=== PATIENT | male | born 1935 | race Caucasian/White ===

== ENCOUNTER 2020-01-31 11:19 | Emergency (ER) | payer OTHER ==
--- NOTE | 2020-01-31 12:28 | RAD REPORT ---
EXAM DESCRIPTION: CT - CTHCSPWOC - 01/31/2020 12:19 pm CLINICAL HISTORY: Trauma, head and neck injury. PAIN COMPARISON: No comparisons TECHNIQUE: Axial 5 mm thick images of the head were obtained. Axial 2 mm thick images of the cervical spine were obtained with sagittal and coronal reconstruction images generated and reviewed. All CT scans are performed using dose optimization technique as appropriate and may include automated exposure control or mA/KV adjustment according to patient size. FINDINGS: CT HEAD WITHOUT CONTRAST: Acute subarachnoid hemorrhage is present of a mild to moderate quantity along both convexities, sy[place] an fissure, [place] region and basal cisterns. A small amount of blood is also present in th e fourth ventricle. No significant hydrocephalus or midline shift. The paranasal sinuses and mastoids are clear.The calvarium is intact. CT CERVICAL SPINE WITHOUT CONTRAST: No fracture or subluxation.Mild multilevel cervical degenerative changes are present.No prevertebral soft tissues swelling is identified. IMPRESSION: Acute bilateral subarachnoid hemorrhage is present.No midline shift or hydrocephalus. Mild degenerate change involving the cervical spine. No acute cervical spine abnormality. Dr. Valdez in the ER was notified.
[2020-01-31] MEDS ORDERED: FOSPHENYTOIN PE 1,000 MG in NA CHLORIDE 0.9% 100 ML IV ONE (12:30)
[2020-01-31 12:46] LABS: Absolute Lymphocytes (CBC) 0.9 K/uL (0.7-4.9); Basophils % 0.2 % (0-1.3); Hematocrit 49.1 % (39.6-49.0); RBC Red Blood Cell Count 5.31 M/uL (4.33-5.43)
[2020-01-31 12:49] LABS: Protime INR 1.15
--- NOTE | 2020-01-31 12:50 | ER ---
Nurse's Notes [facility] Name: James Baker Age: 84 yrs Sex: Male : 1935 Arrival Date: 01/31/2020 Time: 11:23 Bed 13 Private MD: Morales Hartley V Diagnosis: Subarachnoid hemorrhage - bilateral Presentation: 01/30 11:34 Chief complaint: Patient states: Thursday night started with MARCANO and N/V. Pain is now into ll1 neck area mostly. No fever. states he was "out of it"yesterday, but seems better today. Coronavirus screen: Client denies travel out of the [place] in the last 14 days. fatigue, headache, muscle pain, Client presents with at least one sign or symptom that may indicate coronavirus-19. Standard/surgical mask placed on the client. Ebola Screen: Patient denies travel to an Ebola-affected area in the 21 days before illness onset. Initial Sepsis Screen: Does the patient meet any 2 criteria? No. Patient's initial sepsis screen is negative. Does the patient have a suspected source of infection? Yes: S/S of meningitis or endocarditis. Risk Assessment: Do you want to hurt yourself or someone else? Patient reports no desire to harm self or others. Onset of symptoms was January 29, 2020. 11:34 Method Of Arrival: Ambulatory ll1 11:34 Acuity: RODRI 3 ll1 Historical: - Allergies: 11:39 Krclspa-Voo-Adx Reductase Inhibitors; ll1 - PMHx: 11:39 High Cholesterol; Hypertension; ll1 - PSHx: 11:39 Knee surgery; Appendectomy; ll1 - Immunization history:: Flu vaccine is up to date. - Social history:: Smoking status: Patient denies any tobacco usage or history of. Screenin:15 Abuse screen: Denies threats or abuse. Denies injuries from another. Nutritional ss screening: No deficits noted. Tuberculosis screening: Never had TB. 12:30 Fall Risk No fall in past 12 months (0 pts). Secondary diagnosis (15 points) possible ss CVA. IV access (20 points). Ambulatory Aid- None/Bed Rest/Nurse Assist (0 pts). Gait- Normal/Bed Rest/Wheelchair (0 pts) Mental Status- Overestimates/Forgets Limitations (15 pts.). Assessment: 12:15 Reassessment: Pt in CT at this time. mechanical facilities technician told to bring patient to exam room 13 when ss finished obtaining images. General: reports that Thursday patient began having a headache, dizziness and N/V. Yesterday had some confusion and today c/o neck pain that is worse with range of motion with mild nausea . Pain: Complains of pain in head, back of neck Pain currently is 4 out of 10 on a pain scale. Neuro: Level of Consciousness is awake, alert, obeys commands, Oriented to person, place, time, Has intermittent episodes of confusion. Cardiovascular: Capillary refill < 3 seconds is brisk in bilateral fingers Patient's skin is warm and dry. Respiratory: Airway is patent Respiratory effort is even, unlabored, Respiratory pattern is regular, symmetrical. GI: Bowel sounds present X 4 quads. Abd is soft and non tender X 4 quads. Reports nausea. : No signs and/or symptoms were reported regarding the genitourinary system. EENT: Oral mucosa is moist. Derm: Skin is intact, is healthy with good turgor, Skin is dry, Skin is pink, warm \\T\\ dry. normal. Musculoskeletal: Circulation, motion, and sensation intact. Range of motion: intact in all extremities, Swelling absent. 13:04 Reassessment: report given to EMY Dimas. Vital Signs: 11:34 BP 141 / 75; Pulse 60; Resp 17; Temp 98.3; Pulse Ox 96% ; Height 5 ft. 11 in. (180.34 ll1 cm); Pain 8/10; 13:04 BP 139 / 71; Pulse 65; Resp 15; Pulse Ox 99% on R/A; Pain 4/10; ss ED Course: 11:23 Patient arrived in ED. mr 11:24 Morales Hartley MD is Private Physician. mr 11:37 Triage completed. ll1 11:39 Arm band placed on Patient placed in an exam room, on a stretcher. ll1 12:19 CT Head C Spine In Process Unspecified. EDMS 12:30 Initial lab(s) drawn, by me, sent to lab. Inserted saline lock: 20 gauge in right jp3 antecubital area, using aseptic technique. Blood collected. Patient maintains SpO2 saturation greater than 95% on room air. 12:30 EKG done, by ED staff, reviewed by Ivan Valdez MD. jp3 12:33 Ivan Valdez MD is Attending Physician. kdr 12:36 Call light in reach. Side rails up X 1. Side rails up X2. Warm blanket given. Verbal jp3 reassurance given. secured entrance monitor on. Pulse ox on. NIBP on. 12:46 Fabiola Lazar, RN is Primary Nurse. ss 12:48 XRAY Chest (1 view) In Process Unspecified. EDMS 13:04 No provider procedures requiring assistance completed. Patient transferred, IV remains ss in place. Administered Medications: 12:47 Drug: Fosphenytoin 1 grams Route: IVPB; Site: right antecubital; ss 13:13 Follow up: IV Status: Completed infusion ss Outcome: 12:49 ER care complete, transfer ordered by . kdr 13:04 Transferred by helicopter ss 13:04 Condition: stable 13:04 Instructed on the need for transfer. 13:30 Patient left the ED. Signatures: Dispatcher [employer] EDMS Ivan Valdez MD MD kdr Kaylie Mcfarlane, REGRINDER OPERATOR-C REGRINDER OPERATOR-Glo Jackson mr Fabiola Lazar, RN RN Gordo Rivera jp3 Jonah Mendez, RN RN ll1
--- NOTE | 2020-01-31 12:50 | EDPHYS ---
Physician Documentation [facility] Name: James Baker Age: 84 yrs Sex: Male : 1935 Arrival Date: 01/31/2020 Time: 11:23 Bed 13 Private MD: Morales Hartley V ED Physician Ivan Valdez HPI: 01/30 12:39 This 84 yrs old Male presents to ER via Ambulatory with complaints of snw Abdominal Pain, Vomiting, Neck Problem. 12:39 The patient presents with abdominal pain that is diffuse. Onset: The symptoms/episode snw began/occurred suddenly, 2 day(s) ago. The symptoms do not radiate. Associated signs and symptoms: Pertinent positives: nausea and vomiting, headache. The symptoms are described as sudden onset of nausea and vomiting. Modifying factors: the symptoms are aggravated by headache and neck pain. Severity of pain: At its worst the pain was very mild. The patient has not experienced similar symptoms in the past. It is unknown whether or not the patient has recently seen a physician. complains of headache and posterior neck pain. Historical: - Allergies: 11:39 Axtkifb-Tgy-Fmm Reductase Inhibitors; ll1 - PMHx: 11:39 High Cholesterol; Hypertension; ll1 - PSHx: 11:39 Knee surgery; Appendectomy; ll1 - Immunization history:: Flu vaccine is up to date. - Social history:: Smoking status: Patient denies any tobacco usage or history of. ROS: 12:37 Eyes: Negative for injury, pain, redness, and discharge, ENT: Negative for injury, snw pain, and discharge, Neck: Negative for injury, pain, and swelling, Cardiovascular: Negative for chest pain, palpitations, and edema, Respiratory: Negative for shortness of breath, cough, wheezing, and pleuritic chest pain. 12:37 Back: Negative for injury and pain, : Negative for injury, bleeding, discharge, and swelling, MS/Extremity: Negative for injury and deformity, Skin: Negative for injury, rash, and discoloration. 12:37 Constitutional: Positive for malaise. 12:37 Abdomen/GI: Positive for nausea and vomiting. 12:37 Neuro: Positive for headache, posterior neck discomfort, Pt's Spouse states he seemed "out of it" yesterday. Complains of increasing posterior neck pain today. Exam: 12:45 Constitutional: This is a well developed, well nourished patient who is awake, alert, kdr and in no acute distress. Head/Face: Normocephalic, atraumatic. Eyes: Pupils equal round and reactive to light, extra-ocular motions intact. Lids and lashes normal. Conjunctiva and sclera are non-icteric and not injected. Cornea within normal limits. Periorbital areas with no swelling, redness, or edema. ENT: Nares patent. No nasal discharge, no septal abnormalities noted. Tympanic membranes are normal and external auditory canals are clear. Oropharynx with no redness, swelling, or masses, exudates, or evidence of obstruction, uvula midline. Mucous membranes moist. Chest/axilla: Normal chest wall appearance and motion. Nontender with no deformity. No lesions are appreciated. Cardiovascular: Regular rate and rhythm with a normal S1 and S2. No gallops, murmurs, or rubs. Normal PMI, no JVD. No pulse deficits. Respiratory: Lungs have equal breath sounds bilaterally, clear to auscultation and percussion. No rales, rhonchi or wheezes noted. No increased work of breathing, no retractions or nasal flaring. Abdomen/GI: Soft, non-tender, with normal bowel sounds. No distension or tympany. No guarding or rebound. No evidence of tenderness throughout. Back: No spinal tenderness. No costovertebral tenderness. Full range of motion. Skin: Warm, dry with normal turgor. Normal color with no rashes, no lesions, and no evidence of cellulitis. MS/ Extremity: Pulses equal, no cyanosis. Neurovascular intact. Full, normal range of motion. Neuro: Awake and alert, GCS 15, oriented to person, place, time, and situation. Cranial nerves II-XII grossly intact. Motor strength 5/5 in all extremities. Sensory grossly intact. Cerebellar exam normal. Normal gait. Psych: Awake, alert, with orientation to person, place and time. Behavior, mood, and affect are within normal limits. 12:45 Neck: External neck: is normal, C-spine: appears grossly normal, ROM/movement: pain, that is mild, with flexion. 19:35 ECG was reviewed by the Attending Physician. kdr Vital Signs: 11:34 BP 141 / 75; Pulse 60; Resp 17; Temp 98.3; Pulse Ox 96% ; Height 5 ft. 11 in. (180.34 ll1 cm); Pain 8/10; 13:04 BP 139 / 71; Pulse 65; Resp 15; Pulse Ox 99% on R/A; Pain 4/10; ss MDM: 12:37 Data reviewed: vital signs, nurses notes. Data interpreted: Pulse oximetry: on room air snw is 96 %. Interpretation: normal. Counseling: I had a detailed discussion with the patient and/or guardian regarding: the historical points, exam findings, and any diagnostic results supporting the discharge/admit diagnosis, lab results, radiology results, the need to transfer to another facility, for higher level of care, [facility] does not immediately have the required specialist. 12:41 Physician consultation: Dr Coats was called at 12:25, was contacted at 12:42, regarding snw regarding transfer, to [facility]. patient's condition. 12:49 Patient medically screened. kdr 01/30 12:21 Order name: Basic Metabolic Panel snw 01/30 12:21 Order name: CBC with Diff snw 01/30 12:21 Order name: LFT's snw 01/30 12:21 Order name: Magnesium snw 01/30 12:21 Order name: NT PRO-BNP snw 01/30 12:21 Order name: PT-INR snw 01/30 11:53 Order name: CT Head C Spine; Complete Time: 12:41 snw 01/30 11:53 Order name: FSBS; Complete Time: 12:36 snw 01/30 12:21 Order name: Troponin (emerg Dept Use Only) snw 01/30 12:21 Order name: XRAY Chest (1 view) snw 01/30 12:21 Order name: EKG; Complete Time: 12:22 snw 01/30 12:21 Order name: Cardiac monitoring; Complete Time: 12:36 snw 01/30 12:46 Order name: Glucose, Ancillary Testing EDMS 01/30 12:21 Order name: EKG - Nurse/Tech; Complete Time: 12:36 snw 01/30 12:21 Order name: IV Saline Lock; Complete Time: 12:36 snw 01/30 12:21 Order name: Labs collected and sent; Complete Time: 12:36 snw 01/30 12:21 Order name: O2 Per Protocol; Complete Time: 12:36 snw 01/30 12:21 Order name: O2 Sat Monitoring; Complete Time: 12:36 snw 01/30 12:22 Order name: Transfer - Initiate; Complete Time: 12:46 snw EC:35 Rate is 58 beats/min. Rhythm is regular, Sinus bradycardia with No ectopy. QRS [place] is kdr Normal. MO interval is normal. QRS interval is normal. QT interval is normal. Clinical impression: NSR w/ Non-specific ST/T Changes and Sinus bradycardia. Administered Medications: 12:47 Drug: Fosphenytoin 1 grams Route: IVPB; Site: right antecubital; ss 13:13 Follow up: IV Status: Completed infusion ss Disposition: 12:45 Co-signature as Attending Physician, Ivan Valdez MD. Co-signature as Attending [facility] Physician, Ivan Valdez MD I agree with the assessment and plan of care. Disposition: 01/31/20 12:49 Transfer ordered to [facility]. Diagnosis is Subarachnoid hemorrhage - bilateral. - Reason for transfer: Higher level of care. - Accepting physician is Dr. Coats. - Condition is Fair. - Problem is new. - Symptoms have improved. Signatures: Dispatcher [employer] EDMS Ivan Valdez MD MD kdr Kaylie Mcfarlane, DAVID-C PETAL SHAPER HAND-Ariasw Fabiola Lazar RN RN ss Jonah Mendez RN RN ll1 Corrections: (The following items were deleted from the chart) 13:30 12:49 01/31/2020 12:49 Transfer ordered to [facility]. ss Diagnosis is Subarachnoid hemorrhage - bilateral. Reason for transfer: Higher level of care. Accepting physician is Dr. Coats. Condition is Fair. Problem is new. Symptoms have improved. kdr
--- NOTE | 2020-01-31 13:01 | RAD REPORT ---
EXAM DESCRIPTION: Noe Single View01/31/2020 12:47 pm CLINICAL HISTORY: Intracranial bleed COMPARISON: 2017 FINDINGS: The lungs appear clear of acute infiltrate. The heart is normal size IMPRESSION: No acute abnormalities displayed
[2020-01-31 13:09] LABS: ALT/SGPT 21 U/L (12-78); AST/SGOT 15 U/L (15-37); Albumin 4.2 g/dL (3.4-5.0); Alkaline Phosphatase 52 U/L (45-117); BUN Blood Urea Nitrogen 19 mg/dL (7-18); Bicarbonate 31 mmol/L (21-32); Bilirubin Direct 0.4 mg/dL (0-0.2); Bilirubin Total 2.4 mg/dL (0.2-1.0); Glucose Level 124 mg/dL (74-106); Magnesium 2.3 mg/dL (1.8-2.4); NT PRO-BNP 717 pg/mL (<450); Protein, Total 7.8 g/dL (6.4-8.2); Sodium Level 137 mmol/L (136-145); Troponin (Emerg Dept Use Only) < 0.02 ng/mL (0.0-0.045)
[2020-01-31 14:42] VITALS: TEMP 98.3
[2020-01-31 14:43] VITALS: BP 139/71; O2SAT 99
--- NOTE | 2020-02-01 11:30 | EKG ---
Test Date: 2020-01-31 Test Time: 12:29:25 Process Control Tech: ELLIOT MEASUREMENT RESULTS: Intervals: Rate: 58 AK: 128 QRSD: 76 QT: 420 QTc: 412 [place]: P: 58 AK: 128 QRS: -14 T: 50 INTERPRETIVE STATEMENTS: Sinus bradycardia Possible Left atrial enlargement Low voltage QRS Borderline ECG Compared to ECG 02/04/2018 12:26:10 Low QRS voltage now present Electronically Signed On 02-01-20 11:27:19 CDT by David Qiu
== END 2020-01-31 13:30 | disposition short-term general hospital (02) ==
LOC: ER 11:19
DX: I60.9 Nontraumatic subarachnoid hemorrhage, unspecified (principal); I10 Essential (primary) hypertension; M54.2 Cervicalgia; R11.2 Nausea with vomiting, unspecified; Z88.8 Allergy status to other drugs, medicaments and biological substances
CPT/HCPCS: 93005; 85025; 80048; 36415; 83735; 85610; 82947; 80076; 84484; 83880; 70450; 72125; 71045; Q2009; 96365; 99285

== ENCOUNTER 2020-04-08 14:04 | Emergency (ER) | payer OTHER ==
--- OUTSIDE RECORDS SUMMARY | 2020-04-08 14:10 | XMS REPORT | Clinical Summary ---
:1935 Author Organization [facility] Address [address] [place] [address] Care Team Providers Name Role Phone Unavailable Primary Care Provider Unavailable Allergies Active Allergy Reactions Severity Noted Date Comments Uplxofa-Bsj-Noq Reductase 01/31/2020 We ight loss, depression Inhibitors Medications Medication Sig Dispensed Refills Start End Date Status Date apixaban Take 2 tablets 150 tablet 0 05/04/19 Acti ve (ELIQUIS) 5 mg (10 mg total) by 0 21 Tab tablet mouth 2 (two) times daily for 5 days, THEN 1 tablet (5 mg total) 2 (two) times daily for 65 days. baclofen Take 1 tablet (5 0 Act moris (LIORESAL) 5 mg mg total) by 0 Tab mouth 3 (three) times daily. ipratropium-albut Take 3 mLs by 0 03/09/20 Active Thony (DUO-NEB) nebulization 0 21 0.5 mg-3 mg(2.5 every 6 (six) mg base)/3 mL hours for 360 nebulizer days. solution modafiniL Take 1 tablet 0 04/14/19 Active (PROVIGIL) 200 MG (200 mg total) 0 21 tablet by mouth 2 (two) times daily for 30 days. Max Daily Amount: 400 mg sodium chloride, Take 2 mLs by 0 Active hypertonic, nebulization 0 (HYPER-LUIGI) 7 % every 12 nebulizer (twelve) hours. solution ramipriL (ALTACE) Take 10 mg by 0 02/24/20 Discontinued 10 MG mouth daily. 20 (Stop T aking at capsuleIndication Di scharge) s: hypertension doxazosin Take 1 tablet (1 90 tablet 0 03/14/20 Dis continued (CARDURA) 1 MG mg total) by 0 20 (S top Taking at tablet mouth nightly. Disch arge) modafiniL Take 1 tablet 60 tablet 0 03/14/20 Discon tinued (PROVIGIL) 100 MG (100 mg total) 0 20 (Stop Taking at tablet by mouth 2 (two) Dis charge) times daily. Max Daily Amount: 200 mg QUEtiapine Take 1 tablet 60 tablet 0 02/24/20 Disco ntinued (SEROquel) 25 MG (25 mg total) by 0 20 tablet mouth nightly. QUEtiapine Take 0.5 tablets 60 tablet 0 03/14/20 Di scontinued (SEROquel) 25 MG (12.5 mg total) 0 20 (Stop Taking at tablet by mouth Discharge) nightly. Active Problems Problem Noted Date SAH (subarachnoid hemorrhage) 02/27/2020 Urinary retention 02/24/2020 PEG (percutaneous endoscopic gastrostomy) status 02/23 Acute deep vein thrombosis (DVT) of brachial vein of r ight upper extremity 02/24/2020 Moderate protein-calorie malnutrition 02/24/2020 Respiratory failure 02/13/2020 Encephalopathy 02/01/2020 Subarachnoid hemorrhage 01/31/2020 Resolved Problems Problem Noted Date Resolved Date Pneumothorax 02/13/2020 02/24/2020 Cerebral edema 02/01/2020 02/09/2020 HTN (hypertension) 02/01/2020 02/24/2020 Sepsis, due to unspecified organism, unspecified whether 02/24/2020 acute organ dysfunction present Hypotension, unspecified hypotension type 02/24/2020 Septic shock 02/24/2020 Encounters Date Type Specialty Care Team Description 02/20/2020 Surgery Gastroenterology Yelena Hunter MD ENDOSCOPY,PEG 02/20/2020 Anesthesia Event Gastroenterology Andrea Varela MD 02/07/2020 Anesthesia Event Saeed Grey MD 02/07/2020 Surgery Virtual, Surgeon PROCEDURE D ONE OUTSIDE OR 02/01/2020 Anesthesia Event Wil Otoole MD 02/01/2020 Surgery Virtual, Surgeon PROCEDURE D ONE OUTSIDE OR 01/31/2020 [facility] Internal Venkatasubba Coats, SAH (s ubarachnoid hemorrhage) ([facility]) (Primary Dx); - [facility] 03/14/2020 Jb Munguia Cerebral edema ([facility]); Roman, Encephalopathy; Carl Venegas MD Essential hypertension; Jared Boyle, Nontraumati c subarachnoid hemorrhage ([facility]); Meningitis; Radha Siddiqui Aspirelizabeth ramos pneumonia, unspecified aspiration pneumonia type, unspecified laterality, unspecified part of lung ([facility]); Sepsis, due to unspecified organism, uns pecified whether acute organ dysfunction present ([facility]); Thang Bess MD Primary spontaneous pneumothorax; Sunshine Pineda Septic shoc k ([facility]); MD Jayla Spontaneous ten saji pneumothorax; Acute respirato ry failure with hypoxia ([facility]); Secondary spont aneous pneumothorax; Dysphagia, unsp ecified type; Leukocytosis, u nspecified type; Other pneumotho rax; S/P percutaneou s endoscopic gastrostomy (PEG) tube placement ([facility]); PEG (percutaneo us endoscopic gastrostomy) status ([facility]); Urinary retenti on; Hematuria, unsp ecified type; Sepsis associat ed hypotension ([facility]); Acute deep vein thrombosis (DVT) of brachial vein of right upper extremity ([facility]); Palliative care by specialist; Goals of care, counseling/discussion; Moderate protei n-calorie malnutrition ([facility]) 01/31/2020 Travel after 04/08/2019 Social History Tobacco Use Types Packs/Day Years Used Date Never Smoker Smokeless Tobacco: Never Used Tobacco Cessation: Counseling Given: No Alcohol Use Drinks/Week oz/Week Comments Never Alcohol Habits Answer Date Recorded How often do you have a drink containing alcohol? Never 01/31/2020 How many drinks containing alcohol do you have on a typical Not asked day when you are drinking? How often do you have six or more drinks on one occasion? No t asked Sex Assigned at Date Recorded Not on file Last Filed Vital Signs Vital Sign Reading Time Taken Comments Blood Pressure 120/69 03/14/2020 4:00 PM [employer] Pulse 78 03/14/2020 4:00 PM [employer] Temperature 37.2 C (98.9 F) 03/14/2020 4:00 PM [employer] Respiratory Rate 18 03/14/2020 4:00 PM [employer] Oxygen Saturation 93% 03/14/2020 4:00 PM [employer] Inhaled Oxygen Concentration 28% 03/11/2020 2:40 AM [employer] Weight 66.7 kg (147 lb) 03/09/2020 8:48 AM [employer] Height 180.3 cm (5' 10.98") 02/27/2020 12:00 PM [employer] Body Mass Index 20.51 02/27/2020 12:00 PM [employer] Plan of Treatment Health Maintenance Due Date Last Done Comments PNEUMOCOCCAL 65+ YRS (1 of 1 - [id number]) 2001 DEPRESSION SCREENING (12+) 04/13/2019 Medicare IPPE (WELCOME TO MEDICARE) 04/13/2019 INFLUENZA VACCINE (#1) 2019 Procedures Procedure Name Priority Date/Time Associated Comments Diagnosis POCT-GLUCOSE METER Routine 03/14/2020 12:10 Resul ts for PM [employer] this procedure are in the results section. POCT-GLUCOSE METER Routine 03/14/2020 5:30 Resul ts for AM [employer] this procedure are in the results section. POCT-GLUCOSE METER Routine 03/13/2020 11:37 Resul ts for PM [employer] this procedure are in the results section. POCT-GLUCOSE METER Routine 03/13/2020 6:22 Resul ts for PM [employer] this procedure are in the results section. POCT-GLUCOSE METER Routine 03/13/2020 12:11 Resul ts for PM [employer] this procedure are in the results section. SARS-COV2/RT-PCR Routine 03/13/2020 10:17 Results for ([facility]) AM [employer] this proce dure are in the results section. POCT-GLUCOSE METER Routine 03/13/2020 5:48 Resul ts for AM [employer] this procedure are in the results section. POCT-GLUCOSE METER Routine 03/12/2020 11:25 Resul ts for PM [employer] this procedure are in the results section. POCT-GLUCOSE METER Routine 03/12/2020 12:35 Resul ts for PM [employer] this procedure are in the results section. POCT-GLUCOSE METER Routine 03/12/2020 6:06 Resul ts for AM [employer] this procedure are in the results section. CBC W/PLT COUNT & Routine 03/12/2020 4:09 Result s for AUTO DIFFERENTIAL AM [employer] this proce dure are in the results section. CBC W/PLT COUNT & Routine 03/12/2020 4:09 Result s for AUTO DIFFERENTIAL AM [employer] this proce dure are in the results section. POCT-GLUCOSE METER Routine 03/11/2020 11:30 Resul ts for PM [employer] this procedure are in the results section. POCT-GLUCOSE METER Routine 03/11/2020 5:12 Resul ts for PM [employer] this procedure are in the results section. POCT-GLUCOSE METER Routine 03/11/2020 12:47 Resul ts for PM [employer] this procedure are in the results section. POCT-GLUCOSE METER Routine 03/11/2020 5:34 Resul ts for AM [employer] this procedure are in the results section. CBC W/PLT COUNT & Routine 03/11/2020 4:40 Result s for AUTO DIFFERENTIAL AM [employer] this proce dure are in the results section. CBC W/PLT COUNT & Routine 03/11/2020 4:40 Result s for AUTO DIFFERENTIAL AM [employer] this proce dure are in the results section. POCT-GLUCOSE METER Routine 03/10/2020 11:37 Resul ts for PM [employer] this procedure are in the results section. POCT-GLUCOSE METER Routine 03/10/2020 4:55 Resul ts for PM [employer] this procedure are in the results section. POCT-GLUCOSE METER Routine 03/10/2020 12:41 Resul ts for PM [employer] this procedure are in the results section. CBC W/PLT COUNT & Routine 03/10/2020 6:58 Result s for AUTO DIFFERENTIAL AM [employer] this proce dure are in the results section. BASIC METABOLIC Routine 03/10/2020 6:58 Results for PANEL (7) AM [employer] this procedure are in the results section. CBC W/PLT COUNT & Routine 03/10/2020 6:58 Result s for AUTO DIFFERENTIAL AM [employer] this proce dure are in the results section. POCT-GLUCOSE METER Routine 03/10/2020 6:08 Resul ts for AM [employer] this procedure are in the results section. POCT-GLUCOSE METER Routine 03/09/2020 11:54 Resul ts for PM [employer] this procedure are in the results section. POCT-GLUCOSE METER Routine 03/09/2020 5:24 Resul ts for PM [employer] this procedure are in the results section. POCT-GLUCOSE METER Routine 03/09/2020 11:31 Resul ts for AM [employer] this procedure are in the results section. BLOOD CULTURE Routine 03/09/2020 10:59 Results fo r AM [employer] this procedure are in the results section. BLOOD CULTURE Routine 03/09/2020 10:59 Results fo r AM [employer] this procedure are in the results section. XR CHEST 1 VIEW BLAYNE 03/09/2020 10:38 Results for PORTABLE/BEDSIDE AM [employer] this proced ure are in the results section. URINALYSIS W/ REFLEX Routine 03/09/2020 9:52 Res ults for URINE CULTURE AM [employer] this procedure are in the results section. POCT-GLUCOSE METER Routine 03/09/2020 5:51 Resul ts for AM [employer] this procedure are in the results section. CBC W/PLT COUNT & Routine 03/09/2020 3:45 Result s for AUTO DIFFERENTIAL AM [employer] this proce dure are in the results section. BASIC METABOLIC Routine 03/09/2020 3:45 Results for PANEL (7) AM [employer] this procedure are in the results section. CBC W/PLT COUNT & Routine 03/09/2020 3:45 Result s for AUTO DIFFERENTIAL AM [employer] this proce dure are in the results section. POCT-GLUCOSE METER Routine 03/08/2020 11:38 Resul ts for PM [employer] this procedure are in the results section. POCT-GLUCOSE METER Routine 03/08/2020 5:38 Resul ts for PM [employer] this procedure are in the results section. POCT-GLUCOSE METER Routine 03/08/2020 11:51 Resul ts for AM [employer] this procedure are in the results section. POCT-GLUCOSE METER Routine 03/08/2020 6:05 Resul ts for AM [employer] this procedure are in the results section. CBC W/PLT COUNT & Routine 03/08/2020 4:01 Result s for AUTO DIFFERENTIAL AM [employer] this proce dure are in the results section. CBC W/PLT COUNT & Routine 03/08/2020 4:01 Result s for AUTO DIFFERENTIAL AM [employer] this proce dure are in the results section. PHOSPHORUS Routine 03/08/2020 4:01 Results for AM [employer] this procedure are in the results section. POCT-GLUCOSE METER Routine 03/08/2020 12:01 Resul ts for AM [employer] this procedure are in the results section. POCT-GLUCOSE METER Routine 03/07/2020 4:18 Resul ts for PM [employer] this procedure are in the results section. POCT-GLUCOSE METER Routine 03/07/2020 12:00 Resul ts for PM [employer] this procedure are in the results section. POCT-GLUCOSE METER Routine 03/07/2020 5:57 Resul ts for AM [employer] this procedure are in the results section. CBC W/PLT COUNT & Routine 03/07/2020 4:35 Result s for AUTO DIFFERENTIAL AM [employer] this proce dure are in the results section. CBC W/PLT COUNT & Routine 03/07/2020 4:35 Result s for AUTO DIFFERENTIAL AM [employer] this proce dure are in the results section. PHOSPHORUS Routine 03/07/2020 4:35 Results for AM [employer] this procedure are in the results section. POCT-GLUCOSE METER Routine 03/06/2020 11:39 Resul ts for PM [employer] this procedure are in the results section. POCT-GLUCOSE METER Routine 03/06/2020 5:39 Resul ts for PM [employer] this procedure are in the results section. SARS-COV2/RT-PCR Routine 03/06/2020 4:48 Results for ([facility]) PM [employer] this proce dure are in the results section. POCT-GLUCOSE METER Routine 03/06/2020 1:08 Resul ts for PM [employer] this procedure are in the results section. POCT-GLUCOSE METER Routine 03/06/2020 5:12 Resul ts for AM [employer] this procedure are in the results section. CBC W/PLT COUNT & Routine 03/06/2020 4:33 Result s for AUTO DIFFERENTIAL AM [employer] this proce dure are in the results section. CBC W/PLT COUNT & Routine 03/06/2020 4:33 Result s for AUTO DIFFERENTIAL AM [employer] this proce dure are in the results section. PHOSPHORUS Routine 03/06/2020 4:33 Results for AM [employer] this procedure are in the results section. POCT-GLUCOSE METER Routine 03/06/2020 12:26 Resul ts for AM [employer] this procedure are in the results section. POCT-GLUCOSE METER Routine 03/05/2020 5:59 Resul ts for PM [employer] this procedure are in the results section. POCT-GLUCOSE METER Routine 03/05/2020 4:21 Resul ts for PM [employer] this procedure are in the results section. POCT-GLUCOSE METER Routine 03/05/2020 6:17 Resul ts for AM [employer] this procedure are in the results section. CBC W/PLT COUNT & Routine 03/05/2020 3:49 Result s for AUTO DIFFERENTIAL AM [employer] this proce dure are in the results section. CBC W/PLT COUNT & Routine 03/05/2020 3:49 Result s for AUTO DIFFERENTIAL AM [employer] this proce dure are in the results section. PHOSPHORUS Routine 03/05/2020 3:49 Results for AM [employer] this procedure are in the results section. POCT-GLUCOSE METER Routine 03/04/2020 11:33 Resul ts for PM [employer] this procedure are in the results section. POCT-GLUCOSE METER Routine 03/04/2020 5:25 Resul ts for PM [employer] this procedure are in the results section. POCT-GLUCOSE METER Routine 03/04/2020 12:40 Resul ts for PM [employer] this procedure are in the results section. POCT-GLUCOSE METER Routine 03/04/2020 5:42 Resul ts for AM [employer] this procedure are in the results section. CBC W/PLT COUNT & Routine 03/04/2020 5:05 Result s for AUTO DIFFERENTIAL AM [employer] this proce dure are in the results section. MAGNESIUM Routine 03/04/2020 5:05 Results for AM [employer] this procedure are in the results section. BASIC METABOLIC Routine 03/04/2020 5:05 Results for PANEL (7) AM [employer] this procedure are in the results section. CBC W/PLT COUNT & Routine 03/04/2020 5:05 Result s for AUTO DIFFERENTIAL AM [employer] this proce dure are in the results section. PHOSPHORUS Routine 03/04/2020 5:05 Results for AM [employer] this procedure are in the results section. POCT-GLUCOSE METER Routine 03/03/2020 11:09 Resul ts for PM [employer] this procedure are in the results section. POCT-GLUCOSE METER Routine 03/03/2020 5:58 Resul ts for PM [employer] this procedure are in the results section. POCT-GLUCOSE METER Routine 03/03/2020 12:10 Resul ts for PM [employer] this procedure are in the results section. CBC W/PLT COUNT & Routine 03/03/2020 6:43 Result s for AUTO DIFFERENTIAL AM [employer] this proce dure are in the results section. MAGNESIUM Routine 03/03/2020 6:43 Results for AM [employer] this procedure are in the results section. BASIC METABOLIC Routine 03/03/2020 6:43 Results for PANEL (7) AM [employer] this procedure are in the results section. CBC W/PLT COUNT & Routine 03/03/2020 6:43 Result s for AUTO DIFFERENTIAL AM [employer] this proce dure are in the results section. PHOSPHORUS Routine 03/03/2020 6:43 Results for AM [employer] this procedure are in the results section. POCT-GLUCOSE METER Routine 03/03/2020 5:34 Resul ts for AM [employer] this procedure are in the results section. POCT-GLUCOSE METER Routine 03/02/2020 11:48 Resul ts for PM [employer] this procedure are in the results section. POCT-GLUCOSE METER Routine 03/02/2020 11:38 Resul ts for AM [employer] this procedure are in the results section. CBC W/PLT COUNT & Routine 03/02/2020 4:07 Result s for AUTO DIFFERENTIAL AM [employer] this proce dure are in the results section. MAGNESIUM Routine 03/02/2020 4:07 Results for AM [employer] this procedure are in the results section. BASIC METABOLIC Routine 03/02/2020 4:07 Results for PANEL (7) AM [employer] this procedure are in the results section. CBC W/PLT COUNT & Routine 03/02/2020 4:07 Result s for AUTO DIFFERENTIAL AM [employer] this proce dure are in the results section. PHOSPHORUS Routine 03/02/2020 4:07 Results for AM [employer] this procedure are in the results section. POCT-GLUCOSE METER Routine 03/02/2020 12:44 Resul ts for AM [employer] this procedure are in the results section. POCT-GLUCOSE METER Routine 03/01/2020 5:41 Resul ts for PM [employer] this procedure are in the results section. POCT-GLUCOSE METER Routine 03/01/2020 11:46 Resul ts for AM [employer] this procedure are in the results section. XR CHEST 1 VIEW STAT 03/01/2020 9:44 Results for PORTABLE/BEDSIDE AM [employer] this proced ure are in the results section. POCT-GLUCOSE METER Routine 03/01/2020 6:00 Resul ts for AM [employer] this procedure are in the results section. CBC W/PLT COUNT & Routine 03/01/2020 4:51 Result s for AUTO DIFFERENTIAL AM [employer] this proce dure are in the results section. MAGNESIUM Routine 03/01/2020 4:51 Results for AM [employer] this procedure are in the results section. BASIC METABOLIC Routine 03/01/2020 4:51 Results for PANEL (7) AM [employer] this procedure are in the results section. CBC W/PLT COUNT & Routine 03/01/2020 4:51 Result s for AUTO DIFFERENTIAL AM [employer] this proce dure are in the results section. BLOOD GAS, ARTERIAL STAT 03/01/2020 4:51 Resu lts for AM [employer] this procedure are in the results section. PHOSPHORUS Routine 03/01/2020 4:51 Results for AM [employer] this procedure are in the results section. POCT-GLUCOSE METER Routine 02/29/2020 11:34 Resul ts for PM [employer] this procedure are in the results section. BASIC METABOLIC Routine 02/29/2020 5:35 Results for PANEL (7) PM [employer] this procedure are in the results section. PHOSPHORUS Routine 02/29/2020 5:35 Results for PM [employer] this procedure are in the results section. MAGNESIUM Routine 02/29/2020 5:35 Results for PM [employer] this procedure are in the results section. POCT-GLUCOSE METER Routine 02/29/2020 4:48 Resul ts for PM [employer] this procedure are in the results section. PHOSPHORUS Routine 02/29/2020 1:34 Results for PM [employer] this procedure are in the results section. BASIC METABOLIC Routine 02/29/2020 1:34 Results for PANEL (7) PM [employer] this procedure are in the results section. MAGNESIUM Routine 02/29/2020 1:34 Results for PM [employer] this procedure are in the results section. CALCIUM, IONIZED Routine 02/29/2020 11:49 Results for AM [employer] this procedure are in the results section. POCT-GLUCOSE METER Routine 02/29/2020 11:19 Resul ts for AM [employer] this procedure are in the results section. BLOOD GAS, ARTERIAL STAT 02/29/2020 10:57 Resu lts for AM [employer] this procedure are in the results section. POCT-GLUCOSE METER Routine 02/29/2020 6:17 Resul ts for AM [employer] this procedure are in the results section. BLOOD GAS, ARTERIAL STAT 02/29/2020 4:48 Resu lts for AM [employer] this procedure are in the results section. CBC W/PLT COUNT & Routine 02/29/2020 4:30 Result s for AUTO DIFFERENTIAL AM [employer] this proce dure are in the results section. LACTIC ACID, Routine 02/29/2020 4:30 Results for ARTERIAL AM [employer] this procedure are in the results section. BASIC METABOLIC Routine 02/29/2020 4:30 Results for PANEL (7) AM [employer] this procedure are in the results section. CBC W/PLT COUNT & Routine 02/29/2020 4:30 Result s for AUTO DIFFERENTIAL AM [employer] this proce dure are in the results section. PROCALCITONIN Routine 02/29/2020 4:30 Results fo r AM [employer] this procedure are in the results section. PHOSPHORUS Routine 02/29/2020 4:30 Results for AM [employer] this procedure are in the results section. MAGNESIUM Routine 02/29/2020 4:30 Results for AM [employer] this procedure are in the results section. POCT-GLUCOSE METER Routine 02/29/2020 12:22 Resul ts for AM [employer] this procedure are in the results section. POCT-GLUCOSE METER Routine 02/28/2020 6:13 Resul ts for PM [employer] this procedure are in the results section. SARS-COV2/RT-PCR Routine 02/28/2020 11:55 Results for ([facility]) AM [employer] this proce dure are in the results section. POCT-GLUCOSE METER Routine 02/28/2020 11:15 Resul ts for AM [employer] this procedure are in the results section. BLOOD GAS, ARTERIAL Routine 02/28/2020 9:05 Resu lts for AM [employer] this procedure are in the results section. BASIC METABOLIC Routine 02/28/2020 9:05 Results for PANEL (7) AM [employer] this procedure are in the results section. LACTIC ACID, VENOUS STAT 02/28/2020 4:39 Resu lts for AM [employer] this procedure are in the results section. POCT-GLUCOSE METER Routine 02/28/2020 4:36 Resul ts for AM [employer] this procedure are in the results section. CALCIUM, IONIZED STAT 02/28/2020 3:14 Results for AM [employer] this procedure are in the results section. BLOOD GAS, ARTERIAL STAT 02/28/2020 3:09 Resu lts for AM [employer] this procedure are in the results section. (CELLAVISION MANUAL Routine 02/28/2020 3:08 Resu lts for DIFF) AM [employer] this procedure are in the results section. CBC W/PLT COUNT & Routine 02/28/2020 3:08 Result s for AUTO DIFFERENTIAL AM [employer] this proce dure are in the results section. BASIC METABOLIC Routine 02/28/2020 3:08 Results for PANEL (7) AM [employer] this procedure are in the results section. PHOSPHORUS Routine 02/28/2020 3:08 Results for AM [employer] this procedure are in the results section. MAGNESIUM Routine 02/28/2020 3:08 Results for AM [employer] this procedure are in the results section. CBC W/PLT COUNT & Routine 02/28/2020 3:08 Result s for AUTO DIFFERENTIAL AM [employer] this proce dure are in the results section. BLOOD GAS, ARTERIAL STAT 02/28/2020 12:29 Resu lts for AM [employer] this procedure are in the results section. POCT-GLUCOSE METER Routine 02/28/2020 12:14 Resul ts for AM [employer] this procedure are in the results section. BLOOD GAS, ARTERIAL STAT 02/27/2020 9:13 Resu lts for PM [employer] this procedure are in the results section. (CELLAVISION MANUAL STAT 02/27/2020 9:12 Resu lts for DIFF) [employer] this procedure are in the results section. CBC W/PLT COUNT & STAT 02/27/2020 9:12 Result s for AUTO DIFFERENTIAL PM [employer] this proce dure are in the results section. CALCIUM, IONIZED STAT 02/27/2020 9:12 Results for PM [employer] this procedure are in the results section. CBC W/PLT COUNT & STAT 02/27/2020 9:12 Result s for AUTO DIFFERENTIAL PM [employer] this proce dure are in the results section. LACTIC ACID, STAT 02/27/2020 9:12 Results for ARTERIAL [employer] this procedure are in the results section. PHOSPHORUS STAT 02/27/2020 9:01 Results for PM [employer] this procedure are in the results section. MAGNESIUM STAT 02/27/2020 9:01 Results for PM [employer] this procedure are in the results section. BASIC METABOLIC Routine 02/27/2020 9:01 Results for PANEL (7) [employer] this procedure are in the results section. CT ABDOMEN/PELVIS STAT 02/27/2020 7:05 Result s for WITHOUT IV CONTRAST [employer] this pro cedure are in the results section. CT CHEST WITHOUT IV Routine 02/27/2020 7:05 Resu lts for CONTRAST [employer] this procedure are in the results section. CT BRAIN WITHOUT IV STAT 02/27/2020 7:05 Resu lts for CONTRAST [employer] this procedure are in the results section. 2D ECHO W/ DOPPLER STAT 02/27/2020 5:35 Resul ts for (CW/PW/COLOR) [employer] this procedure are in the results section. XR CHEST 1 VIEW STAT 02/27/2020 5:05 Results for PORTABLE/BEDSIDE [employer] this proced ure are in the results section. MAGNESIUM Add-On 02/27/2020 3:47 Results for PM [employer] this procedure are in the results section. LACTIC ACID, STAT 02/27/2020 3:47 Results for ARTERIAL [employer] this procedure are in the results section. BLOOD GAS, ARTERIAL STAT 02/27/2020 3:47 Resu lts for PM [employer] this procedure are in the results section. BASIC METABOLIC Routine 02/27/2020 3:47 Results for PANEL (7) [employer] this procedure are in the results section. POCT-GLUCOSE METER Routine 02/27/2020 2:55 Resul ts for [employer] this procedure are in the results section. LACTIC ACID, VENOUS STAT 02/27/2020 2:20 Resu lts for PM [employer] this procedure are in the results section. URINALYSIS W/ REFLEX Routine 02/27/2020 1:39 Res ults for URINE CULTURE [employer] this procedure are in the results section. URINE CULTURE Routine 02/27/2020 1:39 Results fo r [employer] this procedure are in the results section. MRSA SCREEN Routine 02/27/2020 1:39 Results for PM [employer] this procedure are in the results section. SPUTUM CULTURE + Routine 02/27/2020 11:59 Results for GRAM STAIN AM [employer] this procedure are in the results section. MAGNESIUM Add-On 02/27/2020 11:57 Results for AM [employer] this procedure are in the results section. BASIC METABOLIC Routine 02/27/2020 11:57 Results for PANEL (7) [employer] this procedure are in the results section. LACTIC ACID, Routine 02/27/2020 11:57 Results for ARTERIAL [employer] this procedure are in the results section. PROTHROMBIN TIME/INR Routine 02/27/2020 11:57 Res ults for AM [employer] this procedure are in the results section. BLOOD GAS, ARTERIAL STAT 02/27/2020 11:56 Resu lts for AM [employer] this procedure are in the results section. BLOOD CULTURE Routine 02/27/2020 11:12 Results fo r AM [employer] this procedure are in the results section. XR CHEST 1 VIEW STAT 02/27/2020 10:44 Results for PORTABLE/BEDSIDE AM [employer] this proced ure are in the results section. BLOOD CULTURE Routine 02/27/2020 10:20 Results fo r AM [employer] this procedure are in the results section. XR CHEST 1 VIEW STAT 02/27/2020 9:48 Results for PORTABLE/BEDSIDE AM [employer] this proced ure are in the results section. PT/APTT Routine 02/27/2020 9:41 Results for AM [employer] this procedure are in the results section. LACTIC ACID, VENOUS Routine 02/27/2020 9:40 Resu lts for AM [employer] this procedure are in the results section. CBC W/PLT COUNT & Routine 02/27/2020 9:39 Result s for AUTO DIFFERENTIAL [employer] this proce dure are in the results section. TROPONIN I Routine 02/27/2020 9:39 Results for AM [employer] this procedure are in the results section. COMPREHENSIVE Routine 02/27/2020 9:39 Results fo r METABOLIC PANEL AM [employer] this procedu re are in the results section. CBC W/PLT COUNT & Routine 02/27/2020 9:39 Result s for AUTO DIFFERENTIAL [employer] this proce dure are in the results section. POCT-GLUCOSE Routine 02/27/2020 9:37 Results for AM [employer] this procedure are in the results section. POCT-CALCIUM IONIZED Routine 02/27/2020 9:37 Res ults for AM [employer] this procedure are in the results section. POCT-HEMATOCRIT Routine 02/27/2020 9:37 Results for AM [employer] this procedure are in the results section. POCT-HEMOGLOBIN Routine 02/27/2020 9:37 Results for AM [employer] this procedure are in the results section. POCT-POTASSIUM Routine 02/27/2020 9:37 Results f or AM [employer] this procedure are in the results section. POCT-SODIUM Routine 02/27/2020 9:37 Results for AM [employer] this procedure are in the results section. POCT-BLOOD GASES, Routine 02/27/2020 9:37 Result s for ARTERIAL [employer] this procedure are in the results section. POCT-GLUCOSE METER Routine 02/27/2020 5:31 Resul ts for AM [employer] this procedure are in the results section. CBC W/PLT COUNT & Routine 02/27/2020 4:52 Result s for AUTO DIFFERENTIAL AM [employer] this proce dure are in the results section. CBC W/PLT COUNT & Routine 02/27/2020 4:52 Result s for AUTO DIFFERENTIAL AM [employer] this proce dure are in the results section. POCT-GLUCOSE METER Routine 02/27/2020 12:14 Resul ts for AM [employer] this procedure are in the results section. POCT-GLUCOSE METER Routine 02/26/2020 5:31 Resul ts for PM [employer] this procedure are in the results section. CBC W/PLT COUNT & Routine 02/26/2020 12:14 Result s for AUTO DIFFERENTIAL [employer] this proce dure are in the results section. CBC W/PLT COUNT & Routine 02/26/2020 12:14 Result s for AUTO DIFFERENTIAL [employer] this proce dure are in the results section. CT BRAIN WITHOUT IV BLAYNE 02/26/2020 10:20 Resu lts for CONTRAST AM [employer] this procedure are in the results section. COMPREHENSIVE Routine 02/26/2020 9:04 Results fo r METABOLIC PANEL AM [employer] this procedu re are in the results section. POCT-GLUCOSE METER Routine 02/26/2020 6:47 Resul ts for AM [employer] this procedure are in the results section. POCT-GLUCOSE METER Routine 02/26/2020 12:24 Resul ts for AM [employer] this procedure are in the results section. POCT-GLUCOSE METER Routine 02/25/2020 12:38 Resul ts for PM [employer] this procedure are in the results section. POCT-GLUCOSE METER Routine 02/25/2020 5:30 Resul ts for AM [employer] this procedure are in the results section. COMPREHENSIVE Routine 02/25/2020 4:34 Results fo r METABOLIC PANEL AM [employer] this procedu re are in the results section. CBC W/PLT COUNT & Routine 02/25/2020 4:33 Result s for AUTO DIFFERENTIAL AM [employer] this proce dure are in the results section. CBC W/PLT COUNT & Routine 02/25/2020 4:33 Result s for AUTO DIFFERENTIAL AM [employer] this proce dure are in the results section. POCT-GLUCOSE METER Routine 02/24/2020 11:17 Resul ts for PM [employer] this procedure are in the results section. POCT-GLUCOSE METER Routine 02/24/2020 5:22 Resul ts for PM [employer] this procedure are in the results section. POCT-GLUCOSE METER Routine 02/24/2020 12:36 Resul ts for PM [employer] this procedure are in the results section. CBC W/PLT COUNT & Routine 02/24/2020 6:19 Result s for AUTO DIFFERENTIAL AM [employer] this proce dure are in the results section. COMPREHENSIVE Routine 02/24/2020 6:19 Results fo r METABOLIC PANEL AM [employer] this procedu re are in the results section. CBC W/PLT COUNT & Routine 02/24/2020 6:19 Result s for AUTO DIFFERENTIAL AM [employer] this proce dure are in the results section. POCT-GLUCOSE METER Routine 02/24/2020 5:53 Resul ts for AM [employer] this procedure are in the results section. POCT-GLUCOSE METER Routine 02/24/2020 12:05 Resul ts for AM [employer] this procedure are in the results section. POCT-GLUCOSE METER Routine 02/23/2020 5:59 Resul ts for PM [employer] this procedure are in the results section. CBC W/PLT COUNT & Routine 02/23/2020 5:29 Result s for AUTO DIFFERENTIAL AM [employer] this proce dure are in the results section. COMPREHENSIVE Routine 02/23/2020 5:29 Results fo r METABOLIC PANEL AM [employer] this procedu re are in the results section. CBC W/PLT COUNT & Routine 02/23/2020 5:29 Result s for AUTO DIFFERENTIAL AM [employer] this proce dure are in the results section. POCT-GLUCOSE METER Routine 02/22/2020 11:26 Resul ts for PM [employer] this procedure are in the results section. VANCOMYCIN LEVEL, Timed 02/22/2020 10:21 Result s for TROUGH [employer] this procedure are in the results section. POCT-GLUCOSE METER Routine 02/22/2020 6:38 Resul ts for PM [employer] this procedure are in the results section. APTT Routine 02/22/2020 12:07 Results for PM [employer] this procedure are in the results section. POCT-GLUCOSE METER Routine 02/22/2020 11:42 Resul ts for AM [employer] this procedure are in the results section. POCT-GLUCOSE METER Routine 02/22/2020 5:41 Resul ts for AM [employer] this procedure are in the results section. (CELLAVISION MANUAL Routine 02/22/2020 4:09 Resu lts for DIFF) AM [employer] this procedure are in the results section. CBC W/PLT COUNT & Routine 02/22/2020 4:09 Result s for AUTO DIFFERENTIAL AM [employer] this proce dure are in the results section. APTT Routine 02/22/2020 4:09 Results for AM [employer] this procedure are in the results section. COMPREHENSIVE Routine 02/22/2020 4:09 Results fo r METABOLIC PANEL AM [employer] this procedu re are in the results section. CBC W/PLT COUNT & Routine 02/22/2020 4:09 Result s for AUTO DIFFERENTIAL AM [employer] this proce dure are in the results section. POCT-GLUCOSE METER Routine 02/22/2020 12:32 Resul ts for AM [employer] this procedure are in the results section. POCT-GLUCOSE METER Routine 02/21/2020 6:47 Resul ts for PM [employer] this procedure are in the results section. APTT Routine 02/21/2020 4:44 Results for PM [employer] this procedure are in the results section. URINALYSIS W/ REFLEX Routine 02/21/2020 12:47 Res ults for URINE CULTURE [employer] this procedure are in the results section. SARS-COV2/RT-PCR Routine 02/21/2020 11:53 Results for ([facility]) AM [employer] this proce dure are in the results section. BLOOD CULTURE STAT 02/21/2020 11:04 Results fo r AM [employer] this procedure are in the results section. XR CHEST 1 VIEW STAT 02/21/2020 10:48 Results for PORTABLE/BEDSIDE AM [employer] this proced ure are in the results section. APTT Routine 02/21/2020 10:39 Results for AM [employer] this procedure are in the results section. LACTIC ACID, VENOUS STAT 02/21/2020 10:39 Resu lts for AM [employer] this procedure are in the results section. (CELLAVISION MANUAL Routine 02/21/2020 6:37 Resu lts for DIFF) AM [employer] this procedure are in the results section. CBC W/PLT COUNT & Routine 02/21/2020 6:37 Result s for AUTO DIFFERENTIAL AM [employer] this proce dure are in the results section. COMPREHENSIVE Routine 02/21/2020 6:37 Results fo r METABOLIC PANEL AM [employer] this procedu re are in the results section. CBC W/PLT COUNT & Routine 02/21/2020 6:37 Result s for AUTO DIFFERENTIAL AM [employer] this proce dure are in the results section. POCT-GLUCOSE METER Routine 02/21/2020 5:24 Resul ts for AM [employer] this procedure are in the results section. POCT-GLUCOSE METER Routine 02/21/2020 12:39 Resul ts for AM [employer] this procedure are in the results section. APTT Routine 02/21/2020 12:30 Results for AM [employer] this procedure are in the results section. REPORT OF PROCEDURE 02/20/2020 1:33 - ENDOSCOPY URL [employer] UPPER ENDOSCOPY,PEG 02/20/2020 12:52 Dysphagia, PM [employer] unspecified type POCT-GLUCOSE METER Routine 02/20/2020 5:20 Resul ts for AM [employer] this procedure are in the results section. CBC W/PLT COUNT & Routine 02/20/2020 4:31 Result s for AUTO DIFFERENTIAL AM [employer] this proce dure are in the results section. APTT Routine 02/20/2020 4:31 Results for AM [employer] this procedure are in the results section. COMPREHENSIVE Routine 02/20/2020 4:31 Results fo r METABOLIC PANEL AM [employer] this procedu re are in the results section. CBC W/PLT COUNT & Routine 02/20/2020 4:31 Result s for AUTO DIFFERENTIAL AM [employer] this proce dure are in the results section. POCT-GLUCOSE METER Routine 02/19/2020 11:14 Resul ts for PM [employer] this procedure are in the results section. APTT Routine 02/19/2020 9:41 Results for PM [employer] this procedure are in the results section. POCT-GLUCOSE METER Routine 02/19/2020 5:35 Resul ts for PM [employer] this procedure are in the results section. APTT Routine 02/19/2020 1:58 Results for PM [employer] this procedure are in the results section. POCT-GLUCOSE METER Routine 02/19/2020 5:58 Resul ts for AM [employer] this procedure are in the results section. CBC W/PLT COUNT & Routine 02/19/2020 5:40 Result s for AUTO DIFFERENTIAL AM [employer] this proce dure are in the results section. APTT Routine 02/19/2020 5:40 Results for AM [employer] this procedure are in the results section. COMPREHENSIVE Routine 02/19/2020 5:40 Results fo r METABOLIC PANEL AM [employer] this procedu re are in the results section. CBC W/PLT COUNT & Routine 02/19/2020 5:40 Result s for AUTO DIFFERENTIAL AM [employer] this proce dure are in the results section. POCT-GLUCOSE METER Routine 02/18/2020 11:02 Resul ts for PM [employer] this procedure are in the results section. APTT Routine 02/18/2020 9:13 Results for PM [employer] this procedure are in the results section. POCT-GLUCOSE METER Routine 02/18/2020 4:50 Resul ts for PM [employer] this procedure are in the results section. APTT Routine 02/18/2020 2:11 Results for PM [employer] this procedure are in the results section. POCT-GLUCOSE METER Routine 02/18/2020 12:16 Resul ts for PM [employer] this procedure are in the results section. APTT Routine 02/18/2020 7:57 Results for AM [employer] this procedure are in the results section. POCT-GLUCOSE METER Routine 02/18/2020 7:47 Resul ts for AM [employer] this procedure are in the results section. POCT-GLUCOSE METER Routine 02/18/2020 5:15 Resul ts for AM [employer] this procedure are in the results section. CBC W/PLT COUNT & Routine 02/18/2020 1:03 Result s for AUTO DIFFERENTIAL AM [employer] this proce dure are in the results section. APTT Routine 02/18/2020 1:03 Results for AM [employer] this procedure are in the results section. COMPREHENSIVE Routine 02/18/2020 1:03 Results fo r METABOLIC PANEL AM [employer] this procedu re are in the results section. CBC W/PLT COUNT & Routine 02/18/2020 1:03 Result s for AUTO DIFFERENTIAL AM [employer] this proce dure are in the results section. POCT-GLUCOSE METER Routine 02/17/2020 11:02 Resul ts for PM [employer] this procedure are in the results section. APTT Routine 02/17/2020 10:48 Results for [employer] this procedure are in the results section. POCT-GLUCOSE METER Routine 02/17/2020 6:11 Resul ts for PM [employer] this procedure are in the results section. AMMONIA Routine 02/17/2020 3:26 Results for [employer] this procedure are in the results section. APTT Routine 02/17/2020 3:25 Results for PM [employer] this procedure are in the results section. POCT-GLUCOSE METER Routine 02/17/2020 12:53 Resul ts for [employer] this procedure are in the results section. APTT Routine 02/17/2020 12:40 Results for PM [employer] this procedure are in the results section. CBC W/PLT COUNT & Routine 02/17/2020 6:59 Result s for AUTO DIFFERENTIAL AM [employer] this proce dure are in the results section. APTT Routine 02/17/2020 6:59 Results for AM [employer] this procedure are in the results section. B-TYPE NATRIURETIC Routine 02/17/2020 6:59 Resul ts for FACTOR (BNP) AM [employer] this procedure are in the results section. COMPREHENSIVE Routine 02/17/2020 6:59 Results fo r METABOLIC PANEL AM [employer] this procedu re are in the results section. CBC W/PLT COUNT & Routine 02/17/2020 6:59 Result s for AUTO DIFFERENTIAL AM [employer] this proce dure are in the results section. POCT-GLUCOSE METER Routine 02/17/2020 5:35 Resul ts for AM [employer] this procedure are in the results section. APTT Routine 02/17/2020 12:12 Results for AM [employer] this procedure are in the results section. POCT-GLUCOSE METER Routine 02/17/2020 12:06 Resul ts for AM [employer] this procedure are in the results section. APTT Routine 02/16/2020 5:47 Results for PM [employer] this procedure are in the results section. POCT-GLUCOSE METER Routine 02/16/2020 5:44 Resul ts for PM [employer] this procedure are in the results section. POCT-GLUCOSE METER Routine 02/16/2020 12:48 Resul ts for PM [employer] this procedure are in the results section. APTT Routine 02/16/2020 12:23 Results for PM [employer] this procedure are in the results section. VITAMIN B12 Routine 02/16/2020 10:05 Results for AM [employer] this procedure are in the results section. POCT-GLUCOSE METER Routine 02/16/2020 6:06 Resul ts for AM [employer] this procedure are in the results section. CBC W/PLT COUNT & Routine 02/16/2020 5:42 Result s for AUTO DIFFERENTIAL AM [employer] this proce dure are in the results section. HEPATIC FUNCTION Add-On 02/16/2020 5:42 Results for PANEL [employer] this procedure are in the results section. CBC W/PLT COUNT & Routine 02/16/2020 5:42 Result s for AUTO DIFFERENTIAL AM [employer] this proce dure are in the results section. BASIC METABOLIC Routine 02/16/2020 5:42 Results for PANEL (7) [employer] this procedure are in the results section. APTT Routine 02/16/2020 5:42 Results for AM [employer] this procedure are in the results section. APTT Routine 02/15/2020 11:55 Results for PM [employer] this procedure are in the results section. POCT-GLUCOSE METER Routine 02/15/2020 11:40 Resul ts for PM [employer] this procedure are in the results section. APTT Routine 02/15/2020 6:24 Results for [employer] this procedure are in the results section. CALCIUM, IONIZED Routine 02/15/2020 1:04 Results for [employer] this procedure are in the results section. POCT-GLUCOSE METER Routine 02/15/2020 12:56 Resul ts for PM [employer] this procedure are in the results section. APTT Routine 02/15/2020 10:41 Results for AM [employer] this procedure are in the results section. MAGNESIUM Routine 02/15/2020 10:41 Results for AM [employer] this procedure are in the results section. C. DIFFICILE GDH Routine 02/15/2020 8:33 Results for TOXIN [employer] this procedure are in the results section. LACTIC ACID, Routine 02/15/2020 7:59 Results for ARTERIAL [employer] this procedure are in the results section. PROCALCITONIN Routine 02/15/2020 7:59 Results fo r AM [employer] this procedure are in the results section. HEPATITIS PANEL, Routine 02/15/2020 7:59 Results for ACUTE AM [employer] this procedure are in the results section. BLOOD GAS, ARTERIAL Routine 02/15/2020 3:43 Resu lts for AM [employer] this procedure are in the results section. CBC W/PLT COUNT & Routine 02/15/2020 3:41 Result s for AUTO DIFFERENTIAL AM [employer] this proce dure are in the results section. APTT Routine 02/15/2020 3:41 Results for AM [employer] this procedure are in the results section. HEPATIC FUNCTION Routine 02/15/2020 3:41 Results for PANEL AM [employer] this procedure are in the results section. CALCIUM, IONIZED Routine 02/15/2020 3:41 Results for AM [employer] this procedure are in the results section. PHOSPHORUS Routine 02/15/2020 3:41 Results for AM [employer] this procedure are in the results section. MAGNESIUM Routine 02/15/2020 3:41 Results for AM [employer] this procedure are in the results section. CBC W/PLT COUNT & Routine 02/15/2020 3:41 Result s for AUTO DIFFERENTIAL AM [employer] this proce dure are in the results section. BASIC METABOLIC Routine 02/15/2020 3:41 Results for PANEL (7) AM [employer] this procedure are in the results section. POCT-GLUCOSE METER Routine 02/14/2020 11:41 Resul ts for PM [employer] this procedure are in the results section. APTT Routine 02/14/2020 9:55 Results for PM [employer] this procedure are in the results section. POCT-GLUCOSE METER Routine 02/14/2020 6:40 Resul ts for PM [employer] this procedure are in the results section. APTT Routine 02/14/2020 3:49 Results for PM [employer] this procedure are in the results section. POTASSIUM Routine 02/14/2020 3:49 Results for PM [employer] this procedure are in the results section. CALCIUM, IONIZED Routine 02/14/2020 3:49 Results for PM [employer] this procedure are in the results section. VANCOMYCIN LEVEL, Timed 02/14/2020 3:49 Result s for TROUGH PM [employer] this procedure are in the results section. POCT-GLUCOSE METER Routine 02/14/2020 12:05 Resul ts for PM [employer] this procedure are in the results section. APTT Routine 02/14/2020 9:59 Results for AM [employer] this procedure are in the results section. POCT-GLUCOSE METER Routine 02/14/2020 5:31 Resul ts for AM [employer] this procedure are in the results section. SARS-COV2/RT-PCR Routine 02/14/2020 4:22 Results for ([facility]) AM [employer] this proce dure are in the results section. APTT Routine 02/14/2020 4:12 Results for AM [employer] this procedure are in the results section. BLOOD GAS, ARTERIAL STAT 02/14/2020 4:11 Resu lts for AM [employer] this procedure are in the results section. CBC W/PLT COUNT & Routine 02/14/2020 4:10 Result s for AUTO DIFFERENTIAL AM [employer] this proce dure are in the results section. CALCIUM, IONIZED Routine 02/14/2020 4:10 Results for AM [employer] this procedure are in the results section. PHOSPHORUS Routine 02/14/2020 4:10 Results for AM [employer] this procedure are in the results section. MAGNESIUM Routine 02/14/2020 4:10 Results for AM [employer] this procedure are in the results section. HEPATIC FUNCTION Routine 02/14/2020 4:10 Results for PANEL AM [employer] this procedure are in the results section. CBC W/PLT COUNT & Routine 02/14/2020 4:10 Result s for AUTO DIFFERENTIAL AM [employer] this proce dure are in the results section. BASIC METABOLIC Routine 02/14/2020 4:10 Results for PANEL (7) AM [employer] this procedure are in the results section. XR CHEST 1 VIEW Routine 02/14/2020 12:45 Results for PORTABLE/BEDSIDE AM [employer] this proced ure are in the results section. POCT-GLUCOSE METER Routine 02/14/2020 12:34 Resul ts for AM [employer] this procedure are in the results section. PHOSPHORUS Routine 02/14/2020 12:29 Results for AM [employer] this procedure are in the results section. MAGNESIUM Routine 02/14/2020 12:29 Results for AM [employer] this procedure are in the results section. POTASSIUM Routine 02/14/2020 12:29 Results for AM [employer] this procedure are in the results section. APTT Routine 02/14/2020 12:29 Results for AM [employer] this procedure are in the results section. BLOOD GAS, ARTERIAL STAT 02/13/2020 7:09 Resu lts for PM [employer] this procedure are in the results section. VENOUS DOPPLER LEGS Routine 02/13/2020 6:59 Resu lts for BILATERAL PM [employer] this procedure are in the results section. PT/APTT STAT 02/13/2020 6:09 Results for PM [employer] this procedure are in the results section. POCT-GLUCOSE METER Routine 02/13/2020 5:39 Resul ts for PM [employer] this procedure are in the results section. MRSA SCREEN Routine 02/13/2020 12:00 Results for PM [employer] this procedure are in the results section. PT/APTT STAT 02/13/2020 11:58 Results for AM [employer] this procedure are in the results section. LIPASE Routine 02/13/2020 11:58 Results for AM [employer] this procedure are in the results section. AMYLASE Routine 02/13/2020 11:58 Results for AM [employer] this procedure are in the results section. TRIGLYCERIDES Routine 02/13/2020 11:58 Results fo r AM [employer] this procedure are in the results section. POCT-GLUCOSE METER Routine 02/13/2020 11:57 Resul ts for AM [employer] this procedure are in the results section. CT BRAIN WITHOUT IV Routine 02/13/2020 10:55 Resu lts for CONTRAST AM [employer] this procedure are in the results section. POCT-GLUCOSE METER Routine 02/13/2020 6:26 Resul ts for AM [employer] this procedure are in the results section. APTT Routine 02/13/2020 4:54 Results for AM [employer] this procedure are in the results section. CBC W/PLT COUNT & Routine 02/13/2020 3:24 Result s for AUTO DIFFERENTIAL AM [employer] this proce dure are in the results section. CALCIUM, IONIZED Routine 02/13/2020 3:24 Results for AM [employer] this procedure are in the results section. PHOSPHORUS Routine 02/13/2020 3:24 Results for AM [employer] this procedure are in the results section. MAGNESIUM Routine 02/13/2020 3:24 Results for AM [employer] this procedure are in the results section. HEPATIC FUNCTION Routine 02/13/2020 3:24 Results for PANEL AM [employer] this procedure are in the results section. CBC W/PLT COUNT & Routine 02/13/2020 3:24 Result s for AUTO DIFFERENTIAL AM [employer] this proce dure are in the results section. BASIC METABOLIC Routine 02/13/2020 3:24 Results for PANEL (7) AM [employer] this procedure are in the results section. BLOOD GAS, ARTERIAL Routine 02/13/2020 3:23 Resu lts for AM [employer] this procedure are in the results section. XR CHEST 1 VIEW Routine 02/13/2020 2:33 Results for PORTABLE/BEDSIDE AM [employer] this proced ure are in the results section. POCT-GLUCOSE METER Routine 02/12/2020 11:09 Resul ts for PM [employer] this procedure are in the results section. APTT Routine 02/12/2020 9:44 Results for PM [employer] this procedure are in the results section. LACTIC ACID, STAT 02/12/2020 9:44 Results for ARTERIAL PM [employer] this procedure are in the results section. POCT-GLUCOSE METER Routine 02/12/2020 5:59 Resul ts for PM [employer] this procedure are in the results section. XR CHEST 1 VIEW STAT 02/12/2020 1:59 Results for PORTABLE/BEDSIDE PM [employer] this proced ure are in the results section. APTT Routine 02/12/2020 1:57 Results for PM [employer] this procedure are in the results section. POCT-GLUCOSE METER Routine 02/12/2020 1:11 Resul ts for PM [employer] this procedure are in the results section. BRONCHIAL CULTURE + Routine 02/12/2020 1:04 Resu lts for GRAM STAIN PM [employer] this procedure are in the results section. POCT-GLUCOSE METER Routine 02/12/2020 6:39 Resul ts for AM [employer] this procedure are in the results section. APTT Routine 02/12/2020 4:50 Results for AM [employer] this procedure are in the results section. (CELLAVISION MANUAL Routine 02/12/2020 3:52 Resu lts for DIFF) AM [employer] this procedure are in the results section. CBC W/PLT COUNT & Routine 02/12/2020 3:52 Result s for AUTO DIFFERENTIAL AM [employer] this proce dure are in the results section. LACTIC ACID, STAT 02/12/2020 3:52 Results for ARTERIAL AM [employer] this procedure are in the results section. BLOOD GAS, ARTERIAL STAT 02/12/2020 3:52 Resu lts for AM [employer] this procedure are in the results section. HEPATIC FUNCTION Routine 02/12/2020 3:52 Results for PANEL AM [employer] this procedure are in the results section. CBC W/PLT COUNT & Routine 02/12/2020 3:52 Result s for AUTO DIFFERENTIAL AM [employer] this proce dure are in the results section. BASIC METABOLIC Routine 02/12/2020 3:52 Results for PANEL (7) AM [employer] this procedure are in the results section. XR CHEST 1 VIEW Routine 02/12/2020 1:21 Results for PORTABLE/BEDSIDE AM CDT this proced ure are in the results section. POCT-GLUCOSE METER Routine 02/12/2020 12:41 Resul ts for AM CDT this procedure are in the results section. APTT Routine 02/11/2020 9:46 Results for PM CDT this procedure are in the results section. LACTIC ACID, STAT 02/11/2020 9:46 Results for ARTERIAL PM CDT this procedure are in the results section. BLOOD GAS, ARTERIAL STAT 02/11/2020 9:45 Resu lts for PM CDT this procedure are in the results section. POCT-GLUCOSE METER Routine 02/11/2020 6:51 Resul ts for PM CDT this procedure are in the results section. VANCOMYCIN LEVEL, Timed 02/11/2020 6:40 Result s for TROUGH PM CDT this procedure are in the results section. POCT-GLUCOSE METER Routine 02/11/2020 2:18 Resul ts for PM CDT this procedure are in the results section. PERIPHERAL BLOOD AP Routine 02/11/2020 2:03 Results for SMEAR - PATHOLOGIST PM CDT this pro cedure REVIEW are in the results section. LACTIC ACID, STAT 02/11/2020 2:03 Results for ARTERIAL PM CDT this procedure are in the results section. APTT Routine 02/11/2020 2:02 Results for PM CDT this procedure are in the results section. BLOOD GAS, ARTERIAL STAT 02/11/2020 2:02 Resu lts for PM CDT this procedure are in the results section. APTT Routine 02/11/2020 6:48 Results for AM CDT this procedure are in the results section. POCT-GLUCOSE METER Routine 02/11/2020 5:56 Resul ts for AM CDT this procedure are in the results section. BLOOD GAS, ARTERIAL STAT 02/11/2020 3:58 Resu lts for AM CDT this procedure are in the results section. (CELLAVISION MANUAL Routine 02/11/2020 3:56 Resu lts for DIFF) AM CDT this procedure are in the results section. CBC W/PLT COUNT & Routine 02/11/2020 3:56 Result s for AUTO DIFFERENTIAL AM CDT this proce dure are in the results section. PROCALCITONIN Routine 02/11/2020 3:56 Results fo r AM CDT this procedure are in the results section. LACTIC ACID, STAT 02/11/2020 3:56 Results for ARTERIAL AM CDT this procedure are in the results section. HEPATIC FUNCTION Routine 02/11/2020 3:56 Results for PANEL AM CDT this procedure are in the results section. PHOSPHORUS Routine 02/11/2020 3:56 Results for AM CDT this procedure are in the results section. MAGNESIUM Routine 02/11/2020 3:56 Results for AM CDT this procedure are in the results section. CBC W/PLT COUNT & Routine 02/11/2020 3:56 Result s for AUTO DIFFERENTIAL AM CDT this proce dure are in the results section. BASIC METABOLIC Routine 02/11/2020 3:56 Results for PANEL (7) AM CDT this procedure are in the results section. XR CHEST 1 VIEW Routine 02/11/2020 2:22 Results for PORTABLE/BEDSIDE AM CDT this proced ure are in the results section. POCT-GLUCOSE METER Routine 02/11/2020 1:51 Resul ts for AM CDT this procedure are in the results section. APTT Routine 02/11/2020 12:51 Results for AM CDT this procedure are in the results section. BLOOD GAS, ARTERIAL STAT 02/10/2020 11:43 Resu lts for PM CDT this procedure are in the results section. US GUIDE, VASCULAR Routine 02/10/2020 10:45 Sepsis, due to Res ults for ACCESS PM CDT unspecified this procedure organism, are in the unspecified whether results acute organ section. dysfunction present (HCC) Septic shock (HCC) INSERT NON-TUNNEL CV Routine 02/10/2020 10:45 Sepsis, due to R esults for CATH PM CDT unspecified this procedure organism, are in the unspecified whether results acute organ section. dysfunction present (HCC) Septic shock (HCC) XR CHEST 1 VIEW Routine 02/10/2020 10:15 Results for PORTABLE/BEDSIDE PM CDT this proced ure are in the results section. BLOOD GAS, ARTERIAL STAT 02/10/2020 8:41 Resu lts for PM CDT this procedure are in the results section. LACTIC ACID, STAT 02/10/2020 8:40 Results for ARTERIAL PM CDT this procedure are in the results section. 2D ECHO W/ DOPPLER STAT(After 02/10/2020 6:11 Resul ts for (CW/PW/COLOR) Hours Page PM CDT this procedure Staff) are in the results section. (CELLAVISION MANUAL BLAYNE 02/10/2020 5:28 Resu lts for DIFF) PM CDT this procedure are in the results section. CBC W/PLT COUNT & STAT 02/10/2020 5:28 Result s for AUTO DIFFERENTIAL PM CDT this proce dure are in the results section. COMPREHENSIVE Add-On 02/10/2020 5:28 Results fo r METABOLIC PANEL PM CDT this procedu re are in the results section. HEPATIC FUNCTION Routine 02/10/2020 5:28 Results for PANEL PM CDT this procedure are in the results section. TROPONIN I Routine 02/10/2020 5:28 Results for PM CDT this procedure are in the results section. PROCALCITONIN Routine 02/10/2020 5:28 Results fo r PM CDT this procedure are in the results section. APTT STAT 02/10/2020 5:28 Results for PM CDT this procedure are in the results section. PROTHROMBIN TIME/INR STAT 02/10/2020 5:28 Res ults for PM CDT this procedure are in the results section. LACTIC ACID, VENOUS STAT 02/10/2020 5:28 Resu lts for PM CDT this procedure are in the results section. CBC W/PLT COUNT & STAT 02/10/2020 5:28 Result s for AUTO DIFFERENTIAL PM CDT this proce dure are in the results section. BLOOD GAS, ARTERIAL Routine 02/10/2020 5:27 Resu lts for PM CDT this procedure are in the results section. POCT-GLUCOSE METER Routine 02/10/2020 5:26 Resul ts for PM CDT this procedure are in the results section. COMPREHENSIVE STAT Add-on 02/10/2020 3:22 Results fo r METABOLIC PANEL PM CDT this procedu re are in the results section. TROPONIN I STAT 02/10/2020 3:22 Results for PM CDT this procedure are in the results section. BLOOD GAS, ARTERIAL Routine 02/10/2020 3:21 Resu lts for PM CDT this procedure are in the results section. POCT-GLUCOSE METER Routine 02/10/2020 3:20 Resul ts for PM CDT this procedure are in the results section. XR CHEST 1 VIEW STAT 02/10/2020 2:30 Results for PORTABLE/BEDSIDE PM CDT this proced ure are in the results section. APTT Routine 02/10/2020 12:15 Results for PM CDT this procedure are in the results section. SPUTUM CULTURE + Routine 02/10/2020 12:15 Results for GRAM STAIN PM CDT this procedure are in the results section. CT CHEST WITH IV Routine 02/10/2020 11:41 Results for CONTRAST AM CDT this procedure are in the results section. CT ABDOMEN/PELVIS Routine 02/10/2020 11:41 Result s for WITH IV CONTRAST AM CDT this proced ure are in the results section. APTT Routine 02/10/2020 9:04 Results for AM CDT this procedure are in the results section. TROPONIN I STAT 02/10/2020 7:51 Results for AM CDT this procedure are in the results section. POCT-GLUCOSE METER Routine 02/10/2020 5:58 Resul ts for AM CDT this procedure are in the results section. BLOOD GAS, ARTERIAL STAT 02/10/2020 4:59 Resu lts for AM CDT this procedure are in the results section. CT BRAIN WITHOUT IV STAT 02/10/2020 4:34 Resu lts for CONTRAST AM CDT this procedure are in the results section. POCT-GLUCOSE METER Routine 02/10/2020 3:50 Resul ts for AM CDT this procedure are in the results section. URINALYSIS W/ REFLEX Routine 02/10/2020 3:41 Res ults for URINE CULTURE AM CDT this procedure are in the results section. URINE CULTURE Routine 02/10/2020 3:41 Results fo r AM CDT this procedure are in the results section. BLOOD CULTURE Routine 02/10/2020 3:41 Results fo r AM CDT this procedure are in the results section. BLOOD CULTURE Routine 02/10/2020 3:41 Results fo r AM CDT this procedure are in the results section. XR CHEST 1 VIEW STAT 02/10/2020 3:04 Results for PORTABLE/BEDSIDE AM CDT this proced ure are in the results section. (CELLAVISION MANUAL Routine 02/10/2020 1:50 Resu lts for DIFF) AM CDT this procedure are in the results section. CBC W/PLT COUNT & Routine 02/10/2020 1:50 Result s for AUTO DIFFERENTIAL AM CDT this proce dure are in the results section. CALCIUM, IONIZED Routine 02/10/2020 1:50 Results for AM CDT this procedure are in the results section. CBC W/PLT COUNT & Routine 02/10/2020 1:50 Result s for AUTO DIFFERENTIAL AM CDT this proce dure are in the results section. APTT Routine 02/10/2020 1:48 Results for AM CDT this procedure are in the results section. PROCALCITONIN Routine 02/10/2020 1:48 Results fo r AM CDT this procedure are in the results section. LACTIC ACID, STAT 02/10/2020 1:48 Results for ARTERIAL AM CDT this procedure are in the results section. BLOOD GAS, ARTERIAL Routine 02/10/2020 1:48 Resu lts for AM CDT this procedure are in the results section. TROPONIN I STAT 02/10/2020 1:48 Results for AM CDT this procedure are in the results section. PHOSPHORUS Routine 02/10/2020 1:48 Results for AM CDT this procedure are in the results section. MAGNESIUM Routine 02/10/2020 1:48 Results for AM CDT this procedure are in the results section. BASIC METABOLIC Routine 02/10/2020 1:48 Results for PANEL (7) AM CDT this procedure are in the results section. [place] INSERT Routine 02/10/2020 1:22 Subarachnoid Results for CATH,ART,PERCUT,SHOR AM CDT hemorrhage (HCC) thi s procedure TTERM are in the results section. POCT-GLUCOSE METER Routine 02/09/2020 11:36 Resul ts for PM CDT this procedure are in the results section. MR BRAIN WITH & BLAYNE 02/09/2020 10:05 Results for WITHOUT IV CONTRAST PM CDT this pro cedure are in the results section. POCT-GLUCOSE METER Routine 02/09/2020 5:55 Resul ts for PM CDT this procedure are in the results section. PT/APTT STAT 02/09/2020 5:52 Results for PM CDT this procedure are in the results section. APTT Routine 02/09/2020 5:52 Results for PM CDT this procedure are in the results section. XR CHEST 1 VIEW STAT 02/09/2020 2:22 Results for PORTABLE/BEDSIDE PM CDT this proced ure are in the results section. POCT-GLUCOSE METER Routine 02/09/2020 12:28 Resul ts for PM CDT this procedure are in the results section. APTT Routine 02/09/2020 11:57 Results for AM CDT this procedure are in the results section. CBC (HEMOGRAM ONLY) Routine 02/09/2020 11:57 Resu lts for AM CDT this procedure are in the results section. HSV 1/2 PCR, Routine 02/09/2020 11:57 Results for QUALITATIVE AM CDT this procedure are in the results section. POCT-GLUCOSE METER Routine 02/09/2020 6:00 Resul ts for AM CDT this procedure are in the results section. CBC W/PLT COUNT & Routine 02/09/2020 4:25 Result s for AUTO DIFFERENTIAL AM CDT this proce dure are in the results section. PHOSPHORUS Routine 02/09/2020 4:25 Results for AM CDT this procedure are in the results section. MAGNESIUM Routine 02/09/2020 4:25 Results for AM CDT this procedure are in the results section. CBC W/PLT COUNT & Routine 02/09/2020 4:25 Result s for AUTO DIFFERENTIAL AM CDT this proce dure are in the results section. BASIC METABOLIC Routine 02/09/2020 4:25 Results for PANEL (7) AM CDT this procedure are in the results section. POCT-GLUCOSE METER Routine 02/08/2020 11:47 Resul ts for PM CDT this procedure are in the results section. POCT-GLUCOSE METER Routine 02/08/2020 6:54 Resul ts for PM CDT this procedure are in the results section. RPR Routine 02/08/2020 12:24 Results for PM CDT this procedure are in the results section. HC LAB HIV-1 AG Routine 02/08/2020 12:24 Results for W/HIV-1&2 AB PM CDT this procedure are in the results section. POCT-GLUCOSE METER Routine 02/08/2020 11:21 Resul ts for AM CDT this procedure are in the results section. FL LUMBAR PUNCTURE Routine 02/08/2020 10:41 Resul ts for IMAGE-GUIDED AM CDT this procedure are in the results section. POCT-GLUCOSE METER Routine 02/08/2020 8:34 Resul ts for AM CDT this procedure are in the results section. CBC W/PLT COUNT & Routine 02/08/2020 4:10 Result s for AUTO DIFFERENTIAL AM CDT this proce dure are in the results section. PHOSPHORUS Routine 02/08/2020 4:10 Results for AM CDT this procedure are in the results section. MAGNESIUM Routine 02/08/2020 4:10 Results for AM CDT this procedure are in the results section. CBC W/PLT COUNT & Routine 02/08/2020 4:10 Result s for AUTO DIFFERENTIAL AM CDT this proce dure are in the results section. BASIC METABOLIC Routine 02/08/2020 4:10 Results for PANEL (7) AM CDT this procedure are in the results section. POCT-GLUCOSE METER Routine 02/08/2020 1:11 Resul ts for AM CDT this procedure are in the results section. POCT-GLUCOSE METER Routine 02/07/2020 5:33 Resul ts for PM CDT this procedure are in the results section. SPUTUM CULTURE + Routine 02/07/2020 4:37 Results for GRAM STAIN PM CDT this procedure are in the results section. VANCOMYCIN LEVEL, Routine 02/07/2020 2:09 Result s for RANDOM PM CDT this procedure are in the results section. CBC (HEMOGRAM ONLY) Routine 02/07/2020 2:09 Resu lts for PM CDT this procedure are in the results section. WEST NILE ANTIBODIES Routine 02/07/2020 2:09 Res ults for (IGG, IGM) PM CDT this procedure are in the results section. POCT-GLUCOSE METER Routine 02/07/2020 12:18 Resul ts for PM CDT this procedure are in the results section. HC VENOUS DOPPLER Routine 02/07/2020 12:06 Result s for EXT SABIHA PM CDT this procedure are in the results section. VENOUS DOPPLER LEGS Routine 02/07/2020 11:33 Resu lts for BILATERAL AM CDT this procedure are in the results section. NV CEREBRAL 4 VESSEL Routine 02/07/2020 10:15 Res ults for ANGIOGRAM AM CDT this procedure are in the results section. POCT-GLUCOSE METER Routine 02/07/2020 6:29 Resul ts for AM CDT this procedure are in the results section. CBC W/PLT COUNT & Routine 02/07/2020 5:18 Result s for AUTO DIFFERENTIAL AM CDT this proce dure are in the results section. PT/APTT Routine 02/07/2020 5:18 Results for AM CDT this procedure are in the results section. PROTHROMBIN TIME/INR Routine 02/07/2020 5:18 Res ults for AM CDT this procedure are in the results section. PHOSPHORUS Routine 02/07/2020 5:18 Results for AM CDT this procedure are in the results section. MAGNESIUM Routine 02/07/2020 5:18 Results for AM CDT this procedure are in the results section. CBC W/PLT COUNT & Routine 02/07/2020 5:18 Result s for AUTO DIFFERENTIAL AM CDT this proce dure are in the results section. BASIC METABOLIC Routine 02/07/2020 5:18 Results for PANEL (7) AM CDT this procedure are in the results section. POCT-GLUCOSE METER Routine 02/07/2020 1:12 Resul ts for AM CDT this procedure are in the results section. POCT-GLUCOSE METER Routine 02/06/2020 5:48 Resul ts for PM CDT this procedure are in the results section. HEPATIC FUNCTION Routine 02/06/2020 3:48 Results for PANEL PM CDT this procedure are in the results section. LIPASE Routine 02/06/2020 3:48 Results for PM CDT this procedure are in the results section. AMYLASE Routine 02/06/2020 3:48 Results for PM CDT this procedure are in the results section. PROCALCITONIN Routine 02/06/2020 3:48 Results fo r PM CDT this procedure are in the results section. BASIC METABOLIC Timed 02/06/2020 3:48 Results for PANEL (7) PM CDT this procedure are in the results section. URINALYSIS W/ REFLEX Routine 02/06/2020 3:35 Res ults for URINE CULTURE PM CDT this procedure are in the results section. SARS-COV2/RT-PCR Routine 02/06/2020 12:33 Results for ([facility]) PM CDT this proce dure are in the results section. BLOOD CULTURE Routine 02/06/2020 12:33 Results fo r PM CDT this procedure are in the results section. BLOOD CULTURE Routine 02/06/2020 12:33 Results fo r PM CDT this procedure are in the results section. POCT-GLUCOSE METER Routine 02/06/2020 12:12 Resul ts for PM CDT this procedure are in the results section. 2D ECHO W/ DOPPLER Routine 02/06/2020 10:59 Resul ts for (CW/PW/COLOR) AM CDT this procedure are in the results section. XR CHEST 1 VIEW Routine 02/06/2020 9:41 Results for PORTABLE/BEDSIDE AM CDT this proced ure are in the results section. POCT-GLUCOSE METER Routine 02/06/2020 8:31 Resul ts for AM CDT this procedure are in the results section. (CELLAVISION MANUAL Routine 02/06/2020 4:05 Resu lts for DIFF) AM CDT this procedure are in the results section. CBC W/PLT COUNT & Routine 02/06/2020 4:05 Result s for AUTO DIFFERENTIAL AM CDT this proce dure are in the results section. PHOSPHORUS Routine 02/06/2020 4:05 Results for AM CDT this procedure are in the results section. MAGNESIUM Routine 02/06/2020 4:05 Results for AM CDT this procedure are in the results section. CBC W/PLT COUNT & Routine 02/06/2020 4:05 Result s for AUTO DIFFERENTIAL AM CDT this proce dure are in the results section. BASIC METABOLIC Routine 02/06/2020 4:05 Results for PANEL (7) AM CDT this procedure are in the results section. POCT-GLUCOSE METER Routine 02/05/2020 9:36 Resul ts for PM CDT this procedure are in the results section. POCT-GLUCOSE METER Routine 02/05/2020 3:55 Resul ts for PM CDT this procedure are in the results section. (CELLAVISION MANUAL Routine 02/05/2020 5:26 Resu lts for DIFF) AM CDT this procedure are in the results section. CBC W/PLT COUNT & Routine 02/05/2020 5:26 Result s for AUTO DIFFERENTIAL AM CDT this proce dure are in the results section. VANCOMYCIN LEVEL, Timed 02/05/2020 5:26 Result s for TROUGH AM CDT this procedure are in the results section. PHOSPHORUS Routine 02/05/2020 5:26 Results for AM CDT this procedure are in the results section. MAGNESIUM Routine 02/05/2020 5:26 Results for AM CDT this procedure are in the results section. CBC W/PLT COUNT & Routine 02/05/2020 5:26 Result s for AUTO DIFFERENTIAL AM CDT this proce dure are in the results section. BASIC METABOLIC Routine 02/05/2020 5:26 Results for PANEL (7) AM CDT this procedure are in the results section. POCT-GLUCOSE METER Routine 02/05/2020 12:04 Resul ts for AM CDT this procedure are in the results section. MAGNESIUM Routine 02/04/2020 6:36 Results for PM CDT this procedure are in the results section. POTASSIUM Routine 02/04/2020 6:36 Results for PM CDT this procedure are in the results section. POCT-GLUCOSE METER Routine 02/04/2020 5:29 Resul ts for PM CDT this procedure are in the results section. POCT-GLUCOSE METER Routine 02/04/2020 1:19 Resul ts for PM CDT this procedure are in the results section. PROCALCITONIN Routine 02/04/2020 10:35 Results fo r AM CDT this procedure are in the results section. XR CHEST 1 VIEW Routine 02/04/2020 10:29 Results for PORTABLE/BEDSIDE AM CDT this proced ure are in the results section. CT BRAIN WITHOUT IV Routine 02/04/2020 5:03 Resu lts for CONTRAST AM CDT this procedure are in the results section. CBC W/PLT COUNT & Routine 02/04/2020 4:01 Result s for AUTO DIFFERENTIAL AM CDT this proce dure are in the results section. CBC W/PLT COUNT & Routine 02/04/2020 4:01 Result s for AUTO DIFFERENTIAL AM CDT this proce dure are in the results section. PHOSPHORUS Routine 02/04/2020 4:00 Results for AM CDT this procedure are in the results section. MAGNESIUM Routine 02/04/2020 4:00 Results for AM CDT this procedure are in the results section. BASIC METABOLIC Routine 02/04/2020 4:00 Results for PANEL (7) AM CDT this procedure are in the results section. POCT-GLUCOSE METER Routine 02/04/2020 12:16 Resul ts for AM CDT this procedure are in the results section. POCT-GLUCOSE METER Routine 02/03/2020 5:46 Resul ts for PM CDT this procedure are in the results section. POCT-GLUCOSE METER Routine 02/03/2020 12:01 Resul ts for PM CDT this procedure are in the results section. POCT-GLUCOSE METER Routine 02/03/2020 7:25 Resul ts for AM CDT this procedure are in the results section. URINALYSIS W/ REFLEX Routine 02/03/2020 7:17 Res ults for URINE CULTURE AM CDT this procedure are in the results section. POCT-GLUCOSE METER Routine 02/03/2020 6:12 Resul ts for AM CDT this procedure are in the results section. SPUTUM CULTURE + Routine 02/03/2020 4:51 Results for GRAM STAIN AM CDT this procedure are in the results section. CBC W/PLT COUNT & Routine 02/03/2020 4:49 Result s for AUTO DIFFERENTIAL AM CDT this proce dure are in the results section. LACTIC ACID, VENOUS Routine 02/03/2020 4:49 Resu lts for AM CDT this procedure are in the results section. PHOSPHORUS Routine 02/03/2020 4:49 Results for AM CDT this procedure are in the results section. MAGNESIUM Routine 02/03/2020 4:49 Results for AM CDT this procedure are in the results section. CBC W/PLT COUNT & Routine 02/03/2020 4:49 Result s for AUTO DIFFERENTIAL AM CDT this proce dure are in the results section. BASIC METABOLIC Routine 02/03/2020 4:49 Results for PANEL (7) AM CDT this procedure are in the results section. US GUIDE, VASCULAR Routine 02/03/2020 4:24 Subarachnoid Resul ts for ACCESS AM CDT hemorrhage (HCC) this proced ure are in the results section. INSERT NON-TUNNEL CV Routine 02/03/2020 4:24 Subarachnoid Res ults for CATH AM CDT hemorrhage (HCC) this proced ure are in the results section. POCT-GLUCOSE METER Routine 02/03/2020 12:21 Resul ts for AM CDT this procedure are in the results section. XR CHEST 1 VIEW STAT 02/02/2020 8:24 Results for PORTABLE/BEDSIDE PM CDT this proced ure are in the results section. HEMOGLOBIN AND Routine 02/02/2020 7:42 Results f or HEMATOCRIT PM CDT this procedure are in the results section. LACTIC ACID, VENOUS Routine 02/02/2020 7:42 Resu lts for PM CDT this procedure are in the results section. PROCALCITONIN Routine 02/02/2020 7:42 Results fo r PM CDT this procedure are in the results section. POCT-GLUCOSE METER Routine 02/02/2020 7:32 Resul ts for PM CDT this procedure are in the results section. CT BRAIN WITHOUT IV STAT 02/02/2020 7:14 Resu lts for CONTRAST PM CDT this procedure are in the results section. BLOOD CULTURE Routine 02/02/2020 5:50 Results fo r PM CDT this procedure are in the results section. URINALYSIS W/ REFLEX Routine 02/02/2020 5:32 Res ults for URINE CULTURE PM CDT this procedure are in the results section. BLOOD CULTURE Routine 02/02/2020 5:31 Results fo r PM CDT this procedure are in the results section. EEG AWAKE/ASLEEP AND STAT 02/02/2020 4:16 Res ults for SLEEP PM CDT this procedure are in the results section. XR ABDOMEN / KUB 1 STAT 02/02/2020 2:46 Resul ts for VIEW PM CDT this procedure are in the results section. POCT-GLUCOSE METER Routine 02/02/2020 11:33 Resul ts for AM CDT this procedure are in the results section. CT BRAIN WITHOUT IV Routine 02/02/2020 8:11 Resu lts for CONTRAST AM CDT this procedure are in the results section. CBC W/PLT COUNT & Routine 02/02/2020 3:30 Result s for AUTO DIFFERENTIAL AM CDT this proce dure are in the results section. PHOSPHORUS Routine 02/02/2020 3:30 Results for AM CDT this procedure are in the results section. MAGNESIUM Routine 02/02/2020 3:30 Results for AM CDT this procedure are in the results section. CBC W/PLT COUNT & Routine 02/02/2020 3:30 Result s for AUTO DIFFERENTIAL AM CDT this proce dure are in the results section. BASIC METABOLIC Routine 02/02/2020 3:30 Results for PANEL (7) AM CDT this procedure are in the results section. POCT-GLUCOSE METER Routine 02/01/2020 6:12 Resul ts for PM CDT this procedure are in the results section. MAGNESIUM Routine 02/01/2020 4:48 Results for PM CDT this procedure are in the results section. POTASSIUM Routine 02/01/2020 4:48 Results for PM CDT this procedure are in the results section. POCT-GLUCOSE METER Routine 02/01/2020 12:50 Resul ts for PM CDT this procedure are in the results section. NV CEREBRAL 4 VESSEL Routine 02/01/2020 10:00 Res ults for ANGIOGRAM AM CDT this procedure are in the results section. POCT-GLUCOSE METER Routine 02/01/2020 6:19 Resul ts for AM CDT this procedure are in the results section. CBC W/PLT COUNT & Routine 02/01/2020 4:49 Result s for AUTO DIFFERENTIAL AM CDT this proce dure are in the results section. CBC W/PLT COUNT & Routine 02/01/2020 4:49 Result s for AUTO DIFFERENTIAL AM CDT this proce dure are in the results section. BASIC METABOLIC Routine 02/01/2020 4:49 Results for PANEL (7) AM CDT this procedure are in the results section. PHOSPHORUS Routine 02/01/2020 4:49 Results for AM CDT this procedure are in the results section. MAGNESIUM Routine 02/01/2020 4:49 Results for AM CDT this procedure are in the results section. LIPID PANEL Routine 02/01/2020 4:49 Results for AM CDT this procedure are in the results section. POCT-GLUCOSE METER Routine 02/01/2020 12:39 Resul ts for AM CDT this procedure are in the results section. SARS-COV2/RT-PCR STAT 01/31/2020 5:38 Results for ([facility] & REF LABS) PM CDT this proce dure are in the results section. POCT-GLUCOSE METER Routine 01/31/2020 4:38 Resul ts for PM CDT this procedure are in the results section. CT/CTA CAROTID STAT 01/31/2020 4:13 Results f or PM CDT this procedure are in the results section. CTA BRAIN STAT 01/31/2020 4:13 Results for PM CDT this procedure are in the results section. APTT Routine 01/31/2020 2:50 Results for PM CDT this procedure are in the results section. PROTHROMBIN TIME/INR Routine 01/31/2020 2:50 Res ults for PM CDT this procedure are in the results section. HEPATIC FUNCTION Routine 01/31/2020 2:50 Results for PANEL PM CDT this procedure are in the results section. CBC W/PLT COUNT & Routine 01/31/2020 2:45 Result s for AUTO DIFFERENTIAL PM CDT this proce dure are in the results section. CBC W/PLT COUNT & Routine 01/31/2020 2:45 Result s for AUTO DIFFERENTIAL PM CDT this proce dure are in the results section. BASIC METABOLIC Routine 01/31/2020 2:45 Results for PANEL (7) PM CDT this procedure are in the results section. after 04/08/2019 Results POC-Glucose meter (03/14/2020 12:10 PM AUTOMOBILE ASSEMBLY SUPERVISOR)Only the most recent of156 results within the time period is included. POC-Glucose Meter 150 (H) 70 - 110 [facility] Comment: mg/dL [facility] : TESTED AT [address], [address] [facility] : Correctional Treatment Specialist/Business Functional Analyst ID = [id number] for ONOFRE JASMINEYUAN CARRASQUILLO Specimen Blood Performing Organization Address City/State/Zipcode Phone Number [place] [phone] CENTER SARS-CoV2/RT-PCR (Asymptomatic ONLY) (03/13/2020 10:17 AM AUTOMOBILE ASSEMBLY SUPERVISOR)Only the most recent of7 resultswithin the time period is included. SARS-COV2/RT-PCR Negative Not Detected, JUSTIN GRAYSON Negative, See [facility] external report CENTER for linked test SARS-COV-2 [facility] GAUDENCIO GRAYSON PERFORMING LAB [facility] Specimen Other - Nasopharyngeal wall structure (b dominick structure) Narrative Performed At Negative result for this test determines that JUSTIN JAMESONDamaris [facility] SARS-CoV-2 RNA was not present in the specimen above the Limit of Detection (LOD). However, Negative results do not preclude SARS-CoV-2 infection and should not be used as the sole basis for treatment or patient management decisions. Negative results must be combined with clinical observations, patient history, and epidemiological information. A false negative result may occur if a specimen is improperly collected, transported or handled. A false negative result should be considered if patient's recent exposures or clinical presentation indicate that COVID-19 (SARS-CoV-2) is likely and diagnostic tests for other causes of illness are negative. Re-testing should be considered in cases of suspected false negatives. The limit of detection for this assay is 100 copies/mL. This SARS CoV-2 test is a real-time RT-PCR test intended for the qualitative detection of nucleic acid from SARS-CoV-2 in a nasopharyngeal swab specimen collected from individuals suspected of COVID-19 by their healthcare provider. This test has not been Food and Drug Administration (FDA) cleared or approved. This is a modified version of an approved Emergency Use Authorization (EUA) and is in the process of review by the FDA. Once authorized by the FDA, the issued EUA will be effective until the declaration that circumstances exist justifying the authorization of the emergency use of in vitro diagnostic tests for detection and/or diagnosis of COVID-19 is terminated under Section 564(b)(2) of the Act or the EUA is revoked under Section 564(g) of the Act. Testing was performed using the Fuentes SARS-CoV-2 assay. Fact Sheet for Healthcare Providers: https://www.[employer]/luigi/KO_JGXD-JlK-1 _HCP_Fact_Sheet_51-335514.pdf Fact Sheet for Healthcare Patients: https://www.[employer]al[employer]/luigi/AY_AJWS-YlS-4 _Patient_Fact_Sheet_EN_51-112261C5.pdf Performing Laboratory: [facility] [address] [place] [address] Performing Organization Address City/State/Zipcode Phone Number [facility] [address] [place], [place] [phone] CENTER CBC with platelet count + automated diff (03/12/2020 4:09 AM AUTOMOBILE ASSEMBLY SUPERVISOR)Only the most recent of45 resultswithin the time period is included. Pathologist Sig nature WBC 12.2 (H) 3.5 - 10.5 [facility] K/L [facility] RBC 4.12 (L) 4.63 - 6.08 [facility] M/L [facility] Hemoglobin 13.0 (L) 13.7 - 17.5 [facility] GM/DL [facility] Hematocrit 41.4 40.1 - 51.0 % [facility] MCV 100.5 (H) 79.0 - 92.2 fL [facility] MCH 31.6 25.7 - 32.2 pg [facility] MCHC 31.4 (L) 32.3 - 36.5 [facility] GM/DL [facility] RDW 14.0 11.6 - 14.4 % [facility] Platelets 500 (H) 150 - 450 K/CU [facility] MPV 10.7 9.4 - 12.4 fL [facility] nRBC 0 0 - 0 /100 WBC [facility] % Neutros 78 % [facility] % Lymphs 12 % [facility] % Monos 8 % [facility] % Eos 2 % [facility] % Baso 1 % [facility] # Neutros 9.54 (H) 1.78 - 5.38 [facility] # Lymphs 1.41 1.32 - 3.57 [facility] # Monos 0.91 (H) 0.30 - 0.82 [facility] # Eos 0.19 0.04 - 0.54 [facility] # Baso 0.08 0.01 - 0.08 [facility] Immature 1 0 - 1 % [facility] [place] Specimen Blood Performing Organization Address City/[facility]/Zipcode Phone Number [facility] [address] [place] [address] CENTER Basic Metabolic Panel (03/10/2020 6:58 AM AUTOMOBILE ASSEMBLY SUPERVISOR)Only the most recent of32 results within the time period is included. Sodium 137 136 - 145 meq/L [facility] Potassium 4.4 3.5 - 5.1 meq/L [facility] Chloride 99 98 - 107 meq/L [facility] CO2 28 22 - 29 meq/L [facility] BUN 33 (H) 7 - 21 mg/dL [facility] Creatinine 0.63 0.57 - 1.25 [facility] mg/dL [facility] Glucose 137 (H) 70 - 105 mg/dL [facility] Calcium 8.9 8.4 - 10.2 [facility] mg/dL [facility] EGFR 122Comment: mL/min/1.[address] [facility] ESTIMATED GFR IS NOT [facility] ACCURATE [place] CREATININE CLEARANCE IN PREDICTING GLOMERULAR FILTRATION RATE. ESTIMATED GFR IS NOT APPLICABLE FOR DIALYSIS PATIENTS. Specimen Blood Narrative Performed At Correctional Treatment Specialist XIMENA Muhammad [facility] Performing Organization Address City/State/Zipcode Phone Number [facility] [address] [place] [address] CENTER Blood Culture - Routine (Left Venipuncture) (03/09/2020 10:59 AM AUTOMOBILE ASSEMBLY SUPERVISOR)Only the most recent of11 resultswithin the time period is included. Pathologist Sig nature Result No growth in 5 days [facility] Specimen Blood - Entire left upper arm (body stru cture) Performing Organization Address City/State/Zipcode Phone Number [place] [phone] [place] [address] [place] XR chest 1 view portable / bedside (03/09/2020 10:38 AM AUTOMOBILE ASSEMBLY SUPERVISOR)Only the most recent of18 resultswithin the time period is included. Specimen Narrative Performed At FINAL REPORT [facility] RIS RAD, CHEST, 1 VIEW, NON DEPT INDICATION: leukocytosis COMPARISON: March 01, 2020 FINDINGS: Portable frontal view of the c hest. IMPRESSION: Support Lines: Interval extubation and r emoval of a left IJ central venous catheter. Lungs and pleura: Bibasilar subsegmental atelectasis. Small right effusion. No pneumothorax. Heart and mediastinum: Stable contours. Additional findings: None. Signed: JR Patrick Robert MD Report Verified Date/Time: 03/09/2020 11:20:36 Reading Location: [address] Reading Room Procedure Note Interface, External Ris In - 03/09/2020 11:22 AM AUTOMOBILE ASSEMBLY SUPERVISOR FINAL REPORT RAD, CHEST, 1 VIEW, NON DEPT INDICATION: leukocytosis COMPARISON: March 01, 2020 FINDINGS: Portable frontal view of the c hest. IMPRESSION: Support Lines: Interval extubation and r emoval of a left IJ central venous catheter. Lungs and pleura: Bibasilar subsegmental atelectasis. Small right effusion. No pneumothorax. Heart and mediastinum: Stable contours. Additional findings: None. Signed: JR Patrick Robert MD Report Verified Date/Time: 03/09/2020 1 1:20:36 Reading Location: [facility] C0[facility] nal Reading Room Performing Organization Address City/State/Zipcode Phone Number GE RIS Urinalysis w/Microscopic + Reflex to Culture (03/09/2020 9:52 AM AUTOMOBILE ASSEMBLY SUPERVISOR)Only the most recent of7 resultswithin the time period is included. Color, UA Yellow [facility] Clarity, UA Hazy [facility] Specific [place], 1.022 1.001 - 1.035 [facility] pH, UA 7.0 5.0 - 8.0 [facility] Protein, UA 50 mg/dL (A) Negative [facility] Glucose, UA Negative Negative [facility] Ketones, UA Negative Negative [facility] Bilirubin, UA Negative Negative [facility] Blood, UA Large (A) Negative [facility] Nitrite, UA Negative Negative [facility] Leukocytes, UA Small (A) Negative [facility] Urobilinogen, UA 0.2 0.2 - 1.0 mg/dL [facility] RBC, UA 458 /HPF [facility] WBC, UA 0 /HPF [facility] Mucus Many [facility] Amorphous Crystals Rare [facility] Specimen Source [facility] Specimen Urine - Urinary catheter, device (physic al object) Narrative Performed At Correctional Treatment Specialist ID - [auto] [facility] Correctional Treatment Specialist ID - tech Performing Organization Address City/State/Zipcode Phone Number [facility] [address] [place] [address] CENTER Phosphorus (03/08/2020 4:01 AM AUTOMOBILE ASSEMBLY SUPERVISOR)Only the most recent of28 resultswithin the time period is included. Pathologist Sig nature Phosphorus 4.2 2.3 - 4.7 mg/dL [facility] Specimen Blood Narrative Performed At Correctional Treatment Specialist ID - RONNY Roth [facility] Performing Organization Address City/[facility]/Zipcode Phone Number [facility] [address] [place] [address] CENTER Magnesium (03/04/2020 5:05 AM AUTOMOBILE ASSEMBLY SUPERVISOR)Only the most recent of29 resultswithin the time period is included. Pathologist Sig nature Magnesium 2.0 1.6 - 2.6 mg/dL [facility] Specimen Blood Narrative Performed At Correctional Treatment Specialist ID - RONNY Roth [facility] Performing Organization Address [facility] Phone Number [address] [address] [place] Blood gas, arterial (03/01/2020 4:51 AM AUTOMOBILE ASSEMBLY SUPERVISOR)Only the most recent of23 results within the time period is included. Pathologist Sig nature pH, Arterial 7.46 (H) 7.35 - 7.45 [facility] pCO2, Arterial 42 35 - 45 mm Hg [facility] pO2, Arterial 189 (H) 80 - 90 mm Hg [facility] O2 Sat, Arterial 99.4 (H) 96.0 - 97.0 % [facility] HCO3, Arterial 29 21 - 29 mmol/L [facility] Base Excess, Arterial 4.4 (H) -2.0 - 3.0 [facility] mmol/L [facility] Patient Temperature 36.7 [facility] FIO2 40.0 [facility] Specimen Blood, Arterial Performing Organization Address [facility]/Zipcode Phone Number [address] [address] [place] Calcium, Ionized (02/29/2020 11:49 AM AUTOMOBILE ASSEMBLY SUPERVISOR)Only the most recent of9 resultswithin the time period is included. Pathologist Sig nature Calcium, Ion 1.09 (L) 1.12 - 1.27 mmol/L [facility] pH, Blood 7.47 [facility] Specimen Blood Performing Organization Address City/[facility] Corporation[facility]m Phone Number [address] [address] [place] Procalcitonin (02/29/2020 4:30 AM AUTOMOBILE ASSEMBLY SUPERVISOR)Only the most recent of8 resultswithin the time period is included. Pathologist Sig nature Procalcitonin 1.51 (H) <0.05 ng/mL [facility] Specimen Blood Narrative Performed At SEPSIS RISK (ng/mL) [facility] Low: 0.05-0.50 Intermediate: 0.51-2.00 High: >=2.01 Performing Organization Address [facility] Phone Number [address] [address] [place] Lactic Acid, Arterial (02/29/2020 4:30 AM AUTOMOBILE ASSEMBLY SUPERVISOR)Only the most recent of12 results within the time period is included. Pathologist Sig nature Lactate, Art 0.8 0.5 - 2.2 mmol/L [facility] Specimen Blood, Arterial Narrative Performed At Correctional Treatment Specialist ID - SUKHDEV Muhammad [facility] Performing Organization Address [facility] Phone Number [address] [address] CENTER Lactic acid, venous (02/28/2020 4:39 AM AUTOMOBILE ASSEMBLY SUPERVISOR)Only the most recent of7 results within the time period is included. Lactate, Venous 1.74Comment: 0.50 - 2.20 [facility] slightly mmol/L [facility] hemolyzed [place] Specimen Blood Narrative Performed At Correctional Treatment Specialist XIMENA - HARPREET [facility] Performing Organization Address [facility] Corporationconm Phone Number [place] [phone] [place] [address] CENTER Manual Differential (02/28/2020 3:08 AM AUTOMOBILE ASSEMBLY SUPERVISOR)Only the most recent of10 results within the time period is included. Pathologist Sig nature % Neutros 75 % [facility] % Lymphs 8 % [facility] [facility] % Monos 3 % [facility] % Eos 2 % [facility] % Baso 1 % [facility] % Bands 11 (H) 0 - 10 % [facility] # Neutros 10.28 (H) 1.78 - 5.38 K/ul [facility] # Lymphs 1.10 (L) 1.32 - 3.57 K/ul [facility] # Monos 0.41 0.30 - 0.82 K/uL [facility] # Eos 0.27 0.04 - 0.54 K/uL [facility] # Baso 0.14 (H) 0.01 - 0.08 K/uL [facility] # Bands 1.51 (H) 0.00 - 0.80 K/uL [facility] Total Counted 100 [facility] RBC Morphology Normal [facility] Smudge Cells Present [facility] Giant Platelet Present [facility] Platelet Conc Adequate [facility] Specimen Blood Narrative Performed At [facility] Specialist ID - Mey Mccoy [facility] User comments: Slide comments: Performing Organization Address City/State/Zipcode Phone Number [facility] [address] [place] [phone] brain without IV contrast (02/27/2020 7:05 PM AUTOMOBILE ASSEMBLY SUPERVISOR)Only the most recent of7 resultswithin the time period is included. Specimen Narrative Performed At FINAL REPORT GE RIS CT, BRAIN, WITHOUT CONTRAST INDICATION: Subdural hematoma TECHNIQUE: Noncontrast axial imaging was obtained from the vertex to the skull base. Axial images were recons tructed using a bone algorithm. DOSE REDUCTION: Dose modulation, iterati ve reconstruction, and/or weight-based adjustment of the mA/kV was utilized to reduce the radiation dose to as low as reasonably a chievable. COMPARISON: CT 02/26/2020 FINDINGS: Intracranial: Continued evolution of mul tifocal subarachnoid hemorrhage and trace intraventricular he morrhage, overall unchanged in extent. No new site of hemorrhage. No evidence of acute territorial infarct. No mass effect. No hydrocephalus. Generalized cerebral atrophy with ex vac uo dilatation of the ventricular system proportionate to sulc i. Scattered foci of hypoattenuation within the periventricul ar and subcortical white matter are a nonspecific finding commonl y attributed to chronic small vessel ischemic disease. Osseous structures: No fracture. No susp icious lesion. Paranasal sinuses and mastoid air cells: No evidence of sinusitis. Mastoids are clear. Orbital contents: Globes are intact. IMPRESSION: No significant interval change in subara chnoid and intraventricular hemorrhage. Signed: Adele Guadalupe MD Report Verified Date/Time: 02/27/2020 19:42:19 Procedure Note Interface, External Ris In - 02/27/2020 7:44 PM AUTOMOBILE ASSEMBLY SUPERVISOR FINAL REPORT CT, BRAIN, WITHOUT CONTRAST INDICATION: Subdural hematoma TECHNIQUE: Noncontrast axial imaging was obtained from the vertex to the skull base. Axial images were recons tructed using a bone algorithm. DOSE REDUCTION: Dose modulation, iterati ve reconstruction, and/or weight-based adjustment of the mA/kV was utilized to reduce the radiation dose to as low as reasonably a chievable. COMPARISON: CT 02/26/2020 FINDINGS: Intracranial: Continued evolution of mul tifocal subarachnoid hemorrhage and trace intraventricular he morrhage, overall unchanged in extent. No new site of hemorrhage. No evidence of acute territorial infarct. No mass effect. No hydrocephalus. Generalized cerebral atrophy with ex vac uo dilatation of the ventricular system proportionate to sulc i. Scattered foci of hypoattenuation within the periventricul ar and subcortical white matter are a nonspecific finding commonl y attributed to chronic small vessel ischemic disease. Osseous structures: No fracture. No susp icious lesion. Paranasal sinuses and mastoid air cells: No evidence of sinusitis. Mastoids are clear. Orbital contents: Globes are intact. IMPRESSION: No significant interval change in subara chnoid and intraventricular hemorrhage. Signed: Adele Guadalupe MD Report Verified Date/Time: 02/27/2020 1 9:42:19 Performing Organization Address City/State/Zipcode Phone Number [facility] CT chest without IV contrast (02/27/2020 7:05 PM AUTOMOBILE ASSEMBLY SUPERVISOR) Specimen Narrative Performed At FINAL REPORT [facility] TECHNIQUE: CT of the chest, abdomen, and pelvis WITHOUT intravenous contrast and WITHOUT oral contrast. Dose modulation, iterative reconstruction, and/or weight-based adju stment of the mA/kV was utilized to reduce the radiation dose to as low as reasonably achievable. INDICATION: Postprocedural septic shock. COMPARISON: 02/10/2020. FINDINGS: ABSENCE OF INTRAVENOUS CONTRAST DECREASE S SENSITIVITY FOR DETECTION OF FOCAL LESIONS AND VASCULAR PATHOLOGY. LINES/TUBES: Endotracheal tube terminate s 2.4 cm cephalad to the yolette. A left transjugular central veno us catheter terminates in the SVC. LUNGS AND AIRWAYS: Bibasilar left greate r than right consolidative opacities with a scattered adjacent tree -in-bud clustered opacities throughout the left lower lobe and lingu la, and to a lesser degree the right lower lobe and lateral segment of the right middle lobe. Tree and bud opacities opacities are als o within the inferior aspect of both upper lobes. No focal lesion. Distal bronchioles are intermittently opacified. Central airway s are otherwise clear. PLEURA: No pleural effusion and no pneum othorax. HEART AND MEDIASTINUM: The visualized th yroid gland is normal. No significant mediastinal, hilar, or axill mari lymphadenopathy. Heart is normal size. Moderate coronary atheroscl erotic calcifications. No pericardial effusion. HEPATOBILIARY: Unchanged fluid attenuati ng liver cyst with axial measurements of 4.1 x 3.7 cm and cyst ad jacent to the gallbladder fossa with measurements of 2.8 x 2.0 cm. Gallbladder is unremarkable. No biliary ductal dilatation. SPLEEN: No splenomegaly. PANCREAS: No focal masses or ductal dila tation. ADRENALS: No adrenal nodules. KIDNEYS/URETERS: No hydronephrosis, ston es, or exophytic masses. Unchanged left renal fluid attenuating c yst that is 5.7 x 6.0 cm. Nonobstructing calculi at the lower pole the right kidney up to 0.3 cm diameter. PELVIC ORGANS/BLADDER: Melissa catheter in place. Prostate is enlarged, as before. PERITONEUM/RETROPERITONEUM: No free air or fluid. LYMPH NODES: No lymphadenopathy. VESSELS: Atherosclerosis of the aorta an d branching vessels without aneurysmal dilatation. GI TRACT: Percutaneous gastrostomy tube in place within the stomach. No bowel wall thickening or distention. No bowel obstruction. Appendix not seen. No secondary signs of appendicitis. There are scattered diverticula throughout the sig moid colon without associated inflammation. BONES AND SOFT TISSUES: No acute osseous abnormality. Advanced degenerative disc disease at L5-S1 with vacuum disc phenomenon No significant soft tissue finding. IMPRESSION: 1. Bibasilar consolidations with surroun ding tree-in-bud opacities most concerning for aspiration bronchopn eumonia. 2. No acute abnormality within the abdom en or pelvis. 3. Sigmoid diverticulosis without divert iculitis. 4. Liver and renal cysts, as before. 5. Prostamegaly. Signed: Daisy Senior MD Report Verified Date/Time: 02/27/2020 20:09:20 Procedure Note Interface, External Ris In - 02/27/2020 8:11 PM AUTOMOBILE ASSEMBLY SUPERVISOR FINAL REPORT TECHNIQUE: CT of the chest, abdomen, and pelvis WITHOUT intravenous contrast and WITHOUT oral contrast. Dose modulation, iterative reconstruction, and/or weight-based adju stment of the mA/kV was utilized to reduce the radiation dose to as low as reasonably achievable. INDICATION: Postprocedural septic shock. COMPARISON: 02/10/2020. FINDINGS: ABSENCE OF INTRAVENOUS CONTRAST DECREASE S SENSITIVITY FOR DETECTION OF FOCAL LESIONS AND VASCULAR PATHOLOGY. LINES/TUBES: Endotracheal tube terminate s 2.4 cm cephalad to the yolette. A left transjugular central veno us catheter terminates in the SVC. LUNGS AND AIRWAYS: Bibasilar left greate r than right consolidative opacities with a scattered adjacent tree -in-bud clustered opacities throughout the left lower lobe and lingu la, and to a lesser degree the right lower lobe and lateral segment of the right middle lobe. Tree and bud opacities opacities are als o within the inferior aspect of both upper lobes. No focal lesion. D istal bronchioles are intermittently opacified. Central airway s are otherwise clear. PLEURA: No pleural effusion and no pneum othorax. HEART AND MEDIASTINUM: The visualized th yroid gland is normal. No significant mediastinal, hilar, or axill mari lymphadenopathy. Heart is normal size. Moderate coronary atheroscl erotic calcifications. No pericardial effusion. HEPATOBILIARY: Unchanged fluid attenuati ng liver cyst with axial measurements of 4.1 x 3.7 cm and cyst ad jacent to the gallbladder fossa with measurements of 2.8 x 2.0 cm. Gallbladder is unremarkable. No biliary ductal dilatation. SPLEEN: No splenomegaly. PANCREAS: No focal masses or ductal dila tation. ADRENALS: No adrenal nodules. KIDNEYS/URETERS: No hydronephrosis, ston es, or exophytic masses. Unchanged left renal fluid attenuating c yst that is 5.7 x 6.0 cm. Nonobstructing calculi at the lower pole the right kidney up to 0.3 cm diameter. PELVIC ORGANS/BLADDER: Melissa catheter in place. Prostate is enlarged, as before. PERITONEUM/RETROPERITONEUM: No free air or fluid. LYMPH NODES: No lymphadenopathy. VESSELS: Atherosclerosis of the aorta an d branching vessels without aneurysmal dilatation. GI TRACT: Percutaneous gastrostomy tube in place within the stomach. No bowel wall thickening or distention. No bowel obstruction. Appendix not seen. No secondary signs of appendicitis. There are scattered diverticula throughout the sig moid colon without associated inflammation. BONES AND SOFT TISSUES: No acute osseous abnormality. Advanced degenerative disc disease at L5-S1 with vacuum disc phenomenon No significant soft tissue finding. IMPRESSION: 1. Bibasilar consolidations with surroun ding tree-in-bud opacities most concerning for aspiration bronchopn eumonia. 2. No acute abnormality within the abdom en or pelvis. 3. Sigmoid diverticulosis without divert iculitis. 4. Liver and renal cysts, as before. 5. Prostamegaly. Signed: Daisy Senior MD Report Verified Date/Time: 02/27/2020 2 0:09:20 Performing Organization Address City/State/Zipcode Phone Number [facility] CT abdomen/pelvis without iv contrast (02/27/2020 7:05 PM AUTOMOBILE ASSEMBLY SUPERVISOR) Specimen Narrative Performed At FINAL REPORT [facility] TECHNIQUE: CT of the chest, abdomen, and pelvis WITHOUT intravenous contrast and WITHOUT oral contrast. Dose modulation, iterative reconstruction, and/or weight-based adju stment of the mA/kV was utilized to reduce the radiation dose to as low as reasonably achievable. INDICATION: Postprocedural septic shock. COMPARISON: 02/10/2020. FINDINGS: ABSENCE OF INTRAVENOUS CONTRAST DECREASE S SENSITIVITY FOR DETECTION OF FOCAL LESIONS AND VASCULAR PATHOLOGY. LINES/TUBES: Endotracheal tube terminate s 2.4 cm cephalad to the yolette. A left transjugular central veno us catheter terminates in the SVC. LUNGS AND AIRWAYS: Bibasilar left greate r than right consolidative opacities with a scattered adjacent tree -in-bud clustered opacities throughout the left lower lobe and lingu la, and to a lesser degree the right lower lobe and lateral segment of the right middle lobe. Tree and bud opacities opacities are als o within the inferior aspect of both upper lobes. No focal lesion. Distal bronchioles are intermittently opacified. Central airway s are otherwise clear. PLEURA: No pleural effusion and no pneum othorax. HEART AND MEDIASTINUM: The visualized th yroid gland is normal. No significant mediastinal, hilar, or axill mari lymphadenopathy. Heart is normal size. Moderate coronary atheroscl erotic calcifications. No pericardial effusion. HEPATOBILIARY: Unchanged fluid attenuati ng liver cyst with axial measurements of 4.1 x 3.7 cm and cyst ad jacent to the gallbladder fossa with measurements of 2.8 x 2.0 cm. Gallbladder is unremarkable. No biliary ductal dilatation. SPLEEN: No splenomegaly. PANCREAS: No focal masses or ductal dila tation. ADRENALS: No adrenal nodules. KIDNEYS/URETERS: No hydronephrosis, ston es, or exophytic masses. Unchanged left renal fluid attenuating c yst that is 5.7 x 6.0 cm. Nonobstructing calculi at the lower pole the right kidney up to 0.3 cm diameter. PELVIC ORGANS/BLADDER: Melissa catheter in place. Prostate is enlarged, as before. PERITONEUM/RETROPERITONEUM: No free air or fluid. LYMPH NODES: No lymphadenopathy. VESSELS: Atherosclerosis of the aorta an d branching vessels without aneurysmal dilatation. GI TRACT: Percutaneous gastrostomy tube in place within the stomach. No bowel wall thickening or distention. No bowel obstruction. Appendix not seen. No secondary signs of appendicitis. There are scattered diverticula throughout the sig moid colon without associated inflammation. BONES AND SOFT TISSUES: No acute osseous abnormality. Advanced degenerative disc disease at L5-S1 with vacuum disc phenomenon No significant soft tissue finding. IMPRESSION: 1. Bibasilar consolidations with surroun ding tree-in-bud opacities most concerning for aspiration bronchopn eumonia. 2. No acute abnormality within the abdom en or pelvis. 3. Sigmoid diverticulosis without divert iculitis. 4. Liver and renal cysts, as before. 5. Prostamegaly. Signed: Daisy Senior MD Report Verified Date/Time: 02/27/2020 20:09:20 Procedure Note Interface, External Ris In - 02/27/2020 8:11 PM AUTOMOBILE ASSEMBLY SUPERVISOR FINAL REPORT TECHNIQUE: CT of the chest, abdomen, and pelvis WITHOUT intravenous contrast and WITHOUT oral contrast. Dose modulation, iterative reconstruction, and/or weight-based adju stment of the mA/kV was utilized to reduce the radiation dose to as low as reasonably achievable. INDICATION: Postprocedural septic shock. COMPARISON: 02/10/2020. FINDINGS: ABSENCE OF INTRAVENOUS CONTRAST DECREASE S SENSITIVITY FOR DETECTION OF FOCAL LESIONS AND VASCULAR PATHOLOGY. LINES/TUBES: Endotracheal tube terminate s 2.4 cm cephalad to the yolette. A left transjugular central veno us catheter terminates in the SVC. LUNGS AND AIRWAYS: Bibasilar left greate r than right consolidative opacities with a scattered adjacent tree -in-bud clustered opacities throughout the left lower lobe and lingu la, and to a lesser degree the right lower lobe and lateral segment of the right middle lobe. Tree and bud opacities opacities are als o within the inferior aspect of both upper lobes. No focal lesion. D istal bronchioles are intermittently opacified. Central airway s are otherwise clear. PLEURA: No pleural effusion and no pneum othorax. HEART AND MEDIASTINUM: The visualized th yroid gland is normal. No significant mediastinal, hilar, or axill mari lymphadenopathy. Heart is normal size. Moderate coronary atheroscl erotic calcifications. No pericardial effusion. HEPATOBILIARY: Unchanged fluid attenuati ng liver cyst with axial measurements of 4.1 x 3.7 cm and cyst ad jacent to the gallbladder fossa with measurements of 2.8 x 2.0 cm. Gallbladder is unremarkable. No biliary ductal dilatation. SPLEEN: No splenomegaly. PANCREAS: No focal masses or ductal dila tation. ADRENALS: No adrenal nodules. KIDNEYS/URETERS: No hydronephrosis, ston es, or exophytic masses. Unchanged left renal fluid attenuating c yst that is 5.7 x 6.0 cm. Nonobstructing calculi at the lower pole the right kidney up to 0.3 cm diameter. PELVIC ORGANS/BLADDER: Melissa catheter in place. Prostate is enlarged, as before. PERITONEUM/RETROPERITONEUM: No free air or fluid. LYMPH NODES: No lymphadenopathy. VESSELS: Atherosclerosis of the aorta an d branching vessels without aneurysmal dilatation. GI TRACT: Percutaneous gastrostomy tube in place within the stomach. No bowel wall thickening or distention. No bowel obstruction. Appendix not seen. No secondary signs of appendicitis. There are scattered diverticula throughout the sig moid colon without associated inflammation. BONES AND SOFT TISSUES: No acute osseous abnormality. Advanced degenerative disc disease at L5-S1 with vacuum disc phenomenon No significant soft tissue finding. IMPRESSION: 1. Bibasilar consolidations with surroun ding tree-in-bud opacities most concerning for aspiration bronchopn eumonia. 2. No acute abnormality within the abdom en or pelvis. 3. Sigmoid diverticulosis without divert iculitis. 4. Liver and renal cysts, as before. 5. Prostamegaly. Signed: Daisy Senior MD Report Verified Date/Time: 02/27/2020 2 0:09:20 Performing Organization Address City/State/Zipcode Phone Number [facility] 2D Echo W/Doppler(CW/PW/Color) (02/27/2020 5:35 PM AUTOMOBILE ASSEMBLY SUPERVISOR) Pathologist Sig nature Ejection Fraction [facility] ECHO HEARTLAB [facility] CPACS Specimen Narrative Performed At Transthoracic Echocardiography Report (T TE) [facility]CHO [facility]ART[facility] Demographics Patient Name JAMES PURI Date of Study 02/27/2020 GENE Gender Male Visit Number [id number] Race Unknown Room Number 7216 Number Date of 1935 Referring Bryantjaeopalkaren Jorge L Tawnyrosetta Physician Nilda Age 84 year(s) Outsole Handler Gio Burnett [facility] Interpreting Erna Jeter MD Physician Fellow Silver Cavazos MD Procedure Type of Study TTE procedure:LIMITED 2D ECHOCARDIOGRAM (STAT) Indications:Hypotension or hemodynamic instability. Clinical History Elevated Cholesterol Hypertension HGB 15.1 HCT 45.4 % Height: 71 inches Weight: 69.4 kg (153 lbs) BSA: 1.88 m^2 BMI: 21.34 kg/m^2 HR: 84 bpm BP: 104/55 mmHg Summary Very technically difficult study. No apical views. No Subcostal images. Limited images essentially from a low parasternal window. 1. In the very limited views, the LV appears to be grossly normal in size with normal systolic function and estimated EF > 60%. Unable to evaluate for segmental wall motion or diastolic function. 2. In the very limited views of the RV, there is suggestion of mild RV enlargement. RV systolic function appears grossly normal. 3. In the limited views, suggestion of mild RA enlargement. 4. No significant valvular stenosis or regurgitation noted on limited 2D, Color Doppler exam of the valves. 5. No significant pericardial effusion is visualized. Previous Study Compared to the previous study dated 02/10/2020, no significant changes noted. Both studies are very technically limited studies. Signature Findings Rhythm/BP Regular sinus rhythm during the exam. Left Ventricle Very technically difficult study. No apical views. No Subcostal images. Limited images essentially from a low parasternal window. In the very limited views, the LV appears to be grossly normal in size with normal systolic function and estimated EF > 60%. Unable to evaluate for segmental wall motion or diastolic function. Left Atrium The left atrium is not well visualized. Unable to evaluate for LA size. Right Ventricle In the very limited views of the RV, there is suggestion of mild RV enlargement. RV systolic function appears grossly normal. Right Atrium The right atrium is not well visualized. In the limited views, suggestion of mild RA enlargement. Atrial Septum Normal interatrial septum by available 2D, Color Dopp ler exam. Aortic Valve Trileaflet aortic valve with Mild AoV cusp thic kening. Valve leaflets appear to open well. Inadequate spectral Doppler evaluation. No significant AI on color Doppler exam. Mitral Valve In the limited views suggestion of mild thickening of the mitral leaflets. Trace MR. Tricuspid Valve In the limited views, the tricuspid valve appears grossly normal. Mild TR. Unable to estimate peak systolic PA pressure; inadequate TR velocity sign al. Pulmonic Valve PV not well seen. Aorta Aortic root size is not well seen. Pericardium No significant pericardial effusion is visualized. IVC/SVC/PA/PV/Pleural The inferior vena cava is not visualized. The estimated RA pressure by IVC dynamics indeterminate . Chambers/Structures Left Ventricle LVIDd: 4.18 cm LVEDV:72.03 m l LVIDs: 2.1 cm LV Septum Diastolic: 0.82 cm LV PW Diastolic: 0.88 cm LV FS: 49.8 % LVOT Diameter: 2.02 cm Doppler/Quantitative Measurements LVOT LVOT Diameter: 2.02 cm LVOT Area: 3.2 cm^2 Procedure Note Interface, External Ris In - 02/28/2020 8:42 AM AUTOMOBILE ASSEMBLY SUPERVISOR Transthoracic Echocardiography Report (TTE) Demographics Patient Name JAMES PURI Date of y 02/27/2020 GENE Gender Male Visit Number [id number] Race Unknown [facility] r 7216 Number Date of 1935 Referring Ronald Michaels Physician Padavanapalli Age 84 year(s) Sonographe medina SykesGio Hortencia [facility] Interpreti hugo Jeter MD Physician Fellow Silver Cavazos MD Procedure Type of Study TTE procedure:LIMITED 2D ECHO CARDIOGRAM (STAT) Indications:Hypotension or hemodynamic i nstability. Clinical History Elevated Cholesterol Hypertension HGB 15.1 HCT 45.4 % Height: 71 inches Weight: 69.4 kg (153 l bs) BSA: 1.88 m^2 BMI: 21.34 kg/m^2 HR: 84 bpm BP: 104/55 mmHg Summary Very technically difficult study. No ap ical views. No Subcostal images. Limited images essentially from a low p arasternal window. 1. In the very limited views, the LV ap pears to be grossly normal in size with normal systolic function and estim ated EF > 60%. Unable to evaluate for segmental wall motion or diastolic function. 2. In the very limited views of the RV, there is suggestion of mild RV enlargement. RV systolic function appea rs grossly normal. 3. In the limited views, suggestion of mild RA enlargement. 4. No significant valvular stenosis or regurgitation noted on limited 2D, Color Doppler exam of the valves. 5. No significant pericardial effusion is visualized. Previous Study Compared to the previous study dated , no significant changes noted. Both studies are very technicall y limited studies. Signature Findings Rhythm/BP Regular sinus rh ythm during the exam. Left Ventricle Very technically difficult study. No apical views. No Subcostal mavis ges. Limited images essentially from a low brendon ternal window. In the very limi nimesh views, the LV appears to be grossly normal i n size with normal systolic function and est imated EF > 60%. Unable to evaluate for segmental wa ll motion or diastolic function. Left Atrium The left atrium is not well visualized. Unable to evaluate for LA size. Right Ventricle In the very limi nimesh views of the RV, there is suggestion of mi ld RV enlargement. RV systolic function appears grossly normal. Right Atrium The right atrium is not well visualized. In the limited views, s uggestion of mild RA enlargement. Atrial Septum Normal interatri al septum by available 2D, Color Doppler exam. Aortic Valve Trileaflet aorti c valve with Mild AoV cusp thickening. Valve leaflets a ppear to open well. Inadequate spect ral Doppler evaluation. No significant A I on color Doppler exam. Mitral Valve In the limited v iews suggestion of mild thickening of the mitral le aflets. Trace MR. Tricuspid Valve In the limited v iews, the tricuspid valve appears grossly normal. Mild TR. Unable to estimate peak systolic PA pres sure; inadequate TR velocity signal. Pulmonic Valve PV not well seen . Aorta Aortic root size is not well seen. Pericardium No significant p ericardial effusion is visualized. IVC/SVC/PA/PV/Pleural The inferior astrid a cava is not visualized. The estimated RA pressure by IVC dynamics indeterminate . Chambers/Structures Left Ventricle LVIDd: 4.18 cm LVEDV:72.03 ml LVIDs: 2.1 cm LV Septum Diastolic: 0.82 cm LV PW Diastolic: 0.88 cm LV FS: 49.8 % LVOT Diameter: 2.02 cm Doppler/Quantitative Measurements LVOT LVOT Diameter: 2.02 cm LVOT Area: 3.2 cm^2 Performing Organization Address City/State/Zipcode Phone Number [facility] Urine culture (02/27/2020 1:39 PM AUTOMOBILE ASSEMBLY SUPERVISOR)Only the most recent of2 resultswithin the time period is included. Pathologist Sig nature Result No growth [facility] Specimen Urine - Urinary catheter, device (physic al object) Performing Organization Address City/State/Zipcode Phone Number [facility] [address] [place] [address] CENTER MRSA screen (02/27/2020 1:39 PM AUTOMOBILE ASSEMBLY SUPERVISOR)Only the most recent of2 resultswithin the time period is included. Pathologist Sig nature Result No MRSA isolated [facility] Specimen Nasal - Both anterior nares (body struct ure) Performing Organization Address [facility] Phone Number [facility] [address] [place] [address] [place] Sputum Culture + Gram Stain (02/27/2020 11:59 AM AUTOMOBILE ASSEMBLY SUPERVISOR)Only the most recent of4 resultswithin the time period is included. Result 1+ Pseudomonas [facility] aeruginosa (A) [facility] Gram Stain Result 2+ WBCs [facility] Gram Stain Result 0-5 epithelial cells [facility] Gram Stain Result 3+ gram negative [facility] rods [facility] Specimen Sputum - Endotracheal tube, device (phys ical object) Narrative Performed At 4+ Normal respiratory ricardo present [facility] Organism Antibiotic Method Susceptibility Pseudomonas aeruginosa Amikacin <=8: Susc eptible Pseudomonas aeruginosa Aztreonam 4: Suscep tible Pseudomonas aeruginosa Cefepime <=4: Susc eptible Pseudomonas aeruginosa Ceftazidime 2: Suscep tible Pseudomonas aeruginosa Ciprofloxacin <=0.5: Singh sceptible Pseudomonas aeruginosa Gentamicin <=2: Susc eptible Pseudomonas aeruginosa Imipenem 1: Suscep tible Pseudomonas aeruginosa Levofloxacin <=1: Susc eptible Pseudomonas aeruginosa Meropenem 1: Suscep tible Pseudomonas aeruginosa Piperacillin <=16: Arminda ceptible Pseudomonas aeruginosa Piperacillin + Tazobactam <=8: Susceptible Pseudomonas aeruginosa Tobramycin 4: Suscep tible Performing Organization Address [facility] Corporation[facility] Phone Number [facility] [address] [place] [address] [place] Prothrombin time/INR (02/27/2020 11:57 AM AUTOMOBILE ASSEMBLY SUPERVISOR)Only the most recent of4 results within the time period is included. Pathologist Sig nature Protime 18.7 (H) 11.9 - 14.2 seconds [facility] INR 1.61 <=5.90 [facility] Specimen Blood Narrative Performed At Effective 09/08/2018: PT Reference Range [facility] Change New: 11.9-14.2 Previous: 11.7-14.7 RECOMMENDED COUMADIN/WARFARIN INR THERAPY RANGES STANDARD DOSE: 2.0-3.0 Includes: PROPHYLAXIS for venous thrombosis, systemic embolization; TREATMENT for venous thrombosis and/or pulmonary embolus. HIGH RISK: Target INR is 2.5-3.5 for patients wiht mechanical heart valves. Performing Organization Address [facility] Corporationcode Phone Number [address] [address] [place] PT/aPTT (02/27/2020 9:41 AM AUTOMOBILE ASSEMBLY SUPERVISOR)Only the most recent of5 resultswithin the time period is included. Pathologist Sig nature Protime 18.1 (H) 11.9 - 14.2 seconds [facility] INR 1.54 <=5.90 [facility] PTT 31.7 22.5 - 36.0 seconds [facility] Specimen Blood Narrative Performed At Effective 09/08/2018: PT Reference Range [facility] Change New: 11.9-14.2 Previous: 11.7-14.7 RECOMMENDED COUMADIN/WARFARIN INR THERAPY RANGES STANDARD DOSE: 2.0-3.0 Includes: PROPHYLAXIS for venous thrombosis, systemic embolization; TREATMENT for venous thrombosis and/or pulmonary embolus. HIGH RISK: Target INR is 2.5-3.5 for patients wiht mechanical heart valves. Performing Organization Address [facility] Corporation[facility] Phone Number [facility] [address] [place] [address] CENTER Troponin I (02/27/2020 9:39 AM AUTOMOBILE ASSEMBLY SUPERVISOR)Only the most recent of5 resultswithin the time period is included. Pathologist Sig nature Troponin I <0.01 0.00 - 0.03 ng/mL [facility] Specimen Blood Narrative Performed At Troponin I (TnI) levels must be interpreted [facility] in the context of the presenting symptoms and the clinical findings. Elevated TnI levels indicate myocardial damage, but are not specific for ischemic heart disease. Elevated TnI levels are seen in patients with other cardiac conditions (including myocarditis and congestive heart failure), and slight TnI elevations occur in patients with other conditions, including sepsis, renal failure, acidosis, acute neurological disease, and persistent tachyarrhythmia. Correctional Treatment Specialist ID - EDASI Performing Organization Address City/State/Zipcode Phone Number [facility] [address] [place] [address] [place] Comprehensive metabolic panel (02/27/2020 9:39 AM AUTOMOBILE ASSEMBLY SUPERVISOR)Only the most recent of13 resultswithin the time period is included. Protein, Total 6.7 6.0 - 8.3 [facility] gm/dL [facility] Albumin 3.3 (L) 3.5 - 5.0 [facility] g/dL [facility] Alkaline 96 40 - 150 U/L [facility] Phosphatase [facility] Total Bilirubin 0.8 0.2 - 1.2 [facility] mg/dL [facility] Sodium 133 (L) 136 - 145 [facility] meq/L [facility] Potassium 6.0 (HH) 3.5 - 5.1 [facility] meq/L [facility] Chloride 97 (L) 98 - 107 [facility] meq/L [facility] CO2 25 22 - 29 meq/L [facility] BUN 37 (H) 7 - 21 mg/dL [facility] Creatinine 1.24 0.57 - 1.25 [facility] mg/dL [facility] Glucose 165 (H) 70 - 105 [facility] mg/dL [facility] Calcium 9.3 8.4 - 10.2 [facility] mg/dL [facility] AST 44 (H) 5 - 34 U/L [facility] ALT 108 (H) 6 - 55 U/L [facility] EGFR 56Comment: mL/min/1.73 [facility] ESTIMATED GFR IS sq m [facility] NOT ACCURATE MEDICAL CENTER CREATININE CLEARANCE IN PREDICTING GLOMERULAR FILTRATION RATE. ESTIMATED GFR IS NOT APPLICABLE FOR DIALYSIS PATIENTS. Specimen Blood Narrative Performed At Correctional Treatment Specialist ID - HARPREET [facility] Performing Organization Address City/[facility]/Zipcode Phone Number [address] [address] CENTER POCT-HEMATOCRIT (02/27/2020 9:37 AM AUTOMOBILE ASSEMBLY SUPERVISOR) Pathologist Sig nature POC-Hematocrit 45Comment: : 40 - 50 % [facility] Correctional Treatment Specialist/Technicia [facility] n ID = [id number] for NEFTALI RICHARDS Specimen Blood Performing Organization Address [facility] Corporationcode Phone Number [address] [address] CENTER POCT-HEMOGLOBIN (02/27/2020 9:37 AM AUTOMOBILE ASSEMBLY SUPERVISOR) POC-Hemoglobin 15.3 13.0 - 16.8 [facility] TRUE Comment: g/dL [facility] MEDICAL : TESTED AT [address], [address] CENTER : Correctional Treatment Specialist/Business Functional Analyst ID = [id number] for NEFTALI RICHARDS Specimen Blood Performing Organization Address [facility] Corporation[facility] Phone Number [address] [address] [place] POCT-GLUCOSE (02/27/2020 9:37 AM AUTOMOBILE ASSEMBLY SUPERVISOR) Pathologist Sig nature POC-Glucose 168 (H) 70 - 110 mg/dL [facility] Comment: [facility] MEDICAL : TESTED AT [address], [address] CENTER : Correctional Treatment Specialist/Business Functional Analyst ID = [id number] for NEFTALI RICHARDS Specimen Blood Performing Organization Address [facility] Corporation[facility] Phone Number [address] [address] [place] POC-Sodium (02/27/2020 9:37 AM AUTOMOBILE ASSEMBLY SUPERVISOR) Pathologist Sig nature POC-Sodium 131 (L) 135 - 148 meq/L [facility] TRUE Comment: [facility] MEDICAL : TESTED AT [address], [address] CENTER : Correctional Treatment Specialist/Business Functional Analyst ID = [id number] for NEFTALI RICHARDS Specimen Blood Performing Organization Address City/[facility]/Zipcode Phone Number [address] [address] [place] POC-Potassium (02/27/2020 9:37 AM AUTOMOBILE ASSEMBLY SUPERVISOR) POC-Potassium 5.9 (H) 3.6 - 5.5 meq/L [facility] Comment: [facility] MEDICAL : TESTED AT [address], [address] CENTER : Correctional Treatment Specialist/Business Functional Analyst ID = [id number] for NEFTALI RICHARDS Specimen Blood Performing Organization Address City/[facility]/Zipcode Phone Number [address] [address] [place] POC-Calcium ionized (02/27/2020 9:37 AM AUTOMOBILE ASSEMBLY SUPERVISOR) Pathologist [facility] POC-Calcium 1.19 1.12 - 1.27 [facility] Ionized Comment: mmol/L [facility] MEDICAL : TESTED AT [address], [address] CENTER : Correctional Treatment Specialist/Business Functional Analyst ID = [id number] for NEFTALI RICHARDS Specimen Blood Performing Organization Address City/[facility] Phone Number [address] [address] [place] POC-Blood gases, arterial (02/27/2020 9:37 AM AUTOMOBILE ASSEMBLY SUPERVISOR) Temp. Celsius-POC [facility] FIO2-POC [facility] pH, Arterial-POC 7.517 (H) 7.350 - 7.450 [facility] PCO2, Arterial-POC 34.1 (L)Comment: 35.0 - 45.0 [facility] If pO2 is >180, mm Hg [facility] pCO2 may be MEDICAL CENTER positively biased PO2, Arterial-POC 72.0 (L) 80.0 - 90.0 [facility] mm Hg [facility] SO2, Arterial-POC 96.0 96.0 - 97.0 % [facility] HCO3, 27.6 21.0 - 29.0 [facility] Arterilal-POC meq/L [facility] BE, Arterial-POC 5.0 (H) -2.0 - 3.0 [facility] Comment: meq/L [facility] : TESTED AT [address], [address] MEDICAL CENTER : Correctional Treatment Specialist/Business Functional Analyst ID = [id number] for NEFTALI RICHARDS Specimen Blood Performing Organization Address [facility] Corporationcode Phone Number [address] [phone] CENTER Vancomycin level, trough (02/22/2020 10:21 PM AUTOMOBILE ASSEMBLY SUPERVISOR)Only the most recent of4 resultswithin the time period is included. Pathologist Sig nature Vancomycin Tr 5.5 (L) 10.0 - 20.0 ug/mL [facility] Specimen Blood Narrative Performed At Correctional Treatment Specialist ID - BS [facility] Performing Organization Address [facility] Phone Number [address] [address] CENTER aPTT (02/22/2020 12:07 PM AUTOMOBILE ASSEMBLY SUPERVISOR)Only the most recent of45 resultswithin the time period is included. Pathologist Sig nature PTT 70.0 (H) 22.5 - 36.0 seconds [facility] Specimen Blood Performing Organization Address [facility] Corporationcode Phone Number [address] [phone] CENTER REPORT OF PROCEDURE - ENDOSCOPY URL (02/20/2020 1:33 PM AUTOMOBILE ASSEMBLY SUPERVISOR) Narrative Performed At This result has an attachment that is no t available. Ammonia (02/17/2020 3:26 PM AUTOMOBILE ASSEMBLY SUPERVISOR) Pathologist Sig nature Ammonia 47 18 - 72 mol/L [facility] Specimen Blood Narrative Performed At Correctional Treatment Specialist ID - [facility] Performing Organization Address [facility] Corporationcode Phone Number [facility] [address] [place] [address] CENTER B-type Natriuretic Factor (BNP) (02/17/2020 6:59 AM AUTOMOBILE ASSEMBLY SUPERVISOR) Pathologist Sig nature BNP 30 0 - 100 pg/mL [facility] Specimen Blood Narrative Performed At Correctional Treatment Specialist ID - RONNY Roth [facility] Performing Organization Address City/[facility] Corporation[facility] Phone Number [address] [address] CENTER Vitamin B12 (02/16/2020 10:05 AM AUTOMOBILE ASSEMBLY SUPERVISOR) Pathologist Sig nature Vitamin B12 962 (H) 213 - 816 pg/mL [facility] Specimen Blood Narrative Performed At Correctional Treatment Specialist ID - SUKHDEV Muhammad [facility] Performing Organization Address [facility] Corporationcode Phone Number [address] [address] [place] Hepatic function panel (02/16/2020 5:42 AM AUTOMOBILE ASSEMBLY SUPERVISOR)Only the most recent of9 results within the time period is included. Protein, Total 5.3 (L)Comment: 6.0 - 8.3 [facility] Specimen slightly gm/dL [facility] Albumin 2.6 (L)Comment: 3.5 - 5.0 [facility] Specimen slightly g/dL [facility] Total Bilirubin 0.6Comment: 0.2 - 1.2 [facility] Specimen slightly mg/dL [facility] Bilirubin, Direct 0.2Comment: 0.1 - 0.5 [facility] Specimen slightly mg/dL [facility] Alkaline 75 40 - 150 U/L [facility] Phosphatase [facility] AST 65 (H)Comment: 5 - 34 U/L [facility] Specimen slightly [facility] ALT 168 (H)Comment: 6 - 55 U/L [facility] Specimen slightly [facility] Specimen Blood Narrative Performed At Correctional Treatment Specialist ID - SUKHDEV Muhammad [facility] [place] Performing Organization Address City/[facility] Corporationcode Phone Number [address] [address] [place] Clostridium difficile [facility] Toxin (02/15/2020 8:33 AM AUTOMOBILE ASSEMBLY SUPERVISOR) C. Difficle Toxin Negative Negative [facility] C. Difficile GDH NegativeComment: No Negative [facility] Antigen indication of [facility] Clostridium [place] difficile infection and no colonization. Discontinue enteric isolation and therapy. Specimen Stool - Feces (substance) Narrative Performed At Testing performed by [employer] [facility] Assay. For GDH, published sensitivity of the assay is 98.7% compared to cytotoxicity testing. For Toxin AB, published sensitivity is 87.8% and specificity 99.4% compared to cytotoxicity testing. Verification of kit performance was done by the [facility] Microbiology Lab prior to clinical use. Performing Organization Address City/[facility] Corporation[facility] Phone Number [address] [address] [place] Hepatitis panel, acute (02/15/2020 7:59 AM AUTOMOBILE ASSEMBLY SUPERVISOR) Pathologist Sig nature Hep A IgM Nonreactive Nonreactive [facility] Hep B C IgM Nonreactive Nonreactive [facility] Hepatitis C Ab Nonreactive Nonreactive [facility] HBsAg Screen Nonreactive Nonreactive [facility] Specimen Blood Narrative Performed At Correctional Treatment Specialist ID - SUKHDEV Muhammad [facility] [place] Performing Organization Address City/[facility]/Zipcode Phone Number [address] [address] CENTER Potassium (02/14/2020 3:49 PM AUTOMOBILE ASSEMBLY SUPERVISOR)Only the most recent of4 resultswithin the time period is included. Pathologist Sig nature Potassium 4.0 3.5 - 5.1 meq/L [facility] Specimen Blood Narrative Performed At Correctional Treatment Specialist ID - ADMIN [facility] Performing Organization Address City/State/Zipcode Phone Number [facility] [address] [place] [address] CENTER Venous doppler legs bilateral (02/13/2020 6:59 PM AUTOMOBILE ASSEMBLY SUPERVISOR)Only the most recent of2 resultswithin the time period is included. Pathologist Sig nature Ejection Fraction [facility] ECHO HEARTLAB [employer] [facility] Specimen Impressions Performed At Right Impression [facility] ECHO HEARTIndus InsightsON [facility] 1. There is no deep venous obstruction in the common femoral, profunda femoral, femoral, popliteal, posterior tibial or peroneal veins. 2. There is no superficial venous obstruction in the great saphenous vein. Left Impression 1. There is no deep venous obstruction in the common femoral, profunda femoral, femoral, popliteal, posterior tibial or peroneal veins. 2. There is no superficial venous obstruction in the great saphenous vein. Conclusions Summary Venous duplex imaging and compression of the bilateral lower extremities were performed. The veins were adequately visualized. The bilateral venous systems were patent and compressible with no evidence of thrombus. The venous Doppler waveforms were phasic with respiration . Signature Velocities are measured in cm/s ; Diameters are measured in cm Narrative Performed At PV LAB - Lower Extremities DVT Study [facility] ECHO HEARTLAB numberFireON [facility] Demographics Patient Name JAMES PURI Date of Study 02/13/2020 GENE Age 84 Visit Number [id number] Gender Male Accession Number [id number] Date of 1935 Referring Perez Simpson Room Number [id number] Physician Tiffanie Outsole Handler Gio Julien Interpreting Nati Beck T Physician WRAY Procedure Type of Study: Veins: Lower Extremities DVT Study, VENOUS DOPPLER LEG, BILATERAL. Indications for Study:R/O DVT. Patient Status:STAT. Study Location:Portable. Technical Quality:Adequate visualization . Risk Factors History of Disease + +----+--------+ !Diagnosis !Date!Comments! + +----+--------+ !History/Risk Factors: ! !HT N, HLD! + +----+--------+ Procedure Note Interface, External Ris In - 02/14/2020 7:34 AM AUTOMOBILE ASSEMBLY SUPERVISOR [facility] - Lower Extremities DVT Study Demographics Patient Name JAMES PURI Galdino e of Study 02/13/2020 GENE Age 84 Visit Number [id number] Gen helena Male Accession Number [id number] Galdino e of 1935 Referring Perez Simpson Sylvia m Number [id number] Physician Tiffanie Outsole Handler Gio Julien Int erpreting Nati Beck, T Tutu dyer MD Procedure Type of Study: Veins: Lower Extremities DVT Study, ASTRID OUS DOPPLER LEG, BILATERAL. Indications for Study:R/O DVT. Patient Status:STAT. Study Location:Portable. Technical Quality:Adequate visualization . Risk Factors History of Disease + +----+--------+ !Diagnosis !Date!Comments! + +----+--------+ !History/Risk Factors: ! !HTN, HLD! + +----+--------+ Impressions Right Impression 1. There is no deep venous obstruction i n the common femoral, profunda femoral, femoral, popliteal, posterior t ibial or peroneal veins. 2. There is no superficial venous obstru ction in the great saphenous vein. Left Impression 1. There is no deep venous obstruction i n the common femoral, profunda femoral, femoral, popliteal, posterior t ibial or peroneal veins. 2. There is no superficial venous obstru ction in the great saphenous vein. Conclusions Summary Venous duplex imaging and compression o f the bilateral lower extremities were performed. The veins were adequate ly visualized. The bilateral venous systems were patent and compressible wi th no evidence of thrombus. The venous Doppler waveforms were phasic wi th respiration . Signature Velocities are measured in cm/s ; Diamet ers are measured in cm Performing Organization Address [facility] Phone Number [facility] ECHO HEARTLAB MKCKESSON CPACS Triglycerides (02/13/2020 11:58 AM AUTOMOBILE ASSEMBLY SUPERVISOR) Pathologist Sig nature Triglycerides 115 mg/dL [facility] [place] Specimen Blood Narrative Performed At TRIGLYCERIDE REFERENCE RANGE [facility] Low Risk <150 Borderline Risk 150-199 High Risk 200-499 Very High Risk >=500 Correctional Treatment Specialist XIMENA Rodrigues Performing Organization Address [facility] Phone Number [address] [address] CENTER Lipase (02/13/2020 11:58 AM AUTOMOBILE ASSEMBLY SUPERVISOR)Only the most recent of2 resultswithin the time period is included. Pathologist Sig nature Lipase 17 8 - 78 U/L [facility] Specimen Blood Narrative Performed At Correctional Treatment Specialist XIMENA Rodrigues [facility] Performing Organization Address [facility] Phone Number [address] [address] CENTER Amylase (02/13/2020 11:58 AM AUTOMOBILE ASSEMBLY SUPERVISOR)Only the most recent of2 resultswithin the time period is included. Pathologist Sig nature Amylase 26 25 - 125 U/L [facility] Specimen Blood Narrative Performed At Correctional Treatment Specialist XIMENA [facility] Performing Organization Address [facility] Phone Number [address] [address] CENTER Bronchial culture + gram stain (02/12/2020 1:04 PM AUTOMOBILE ASSEMBLY SUPERVISOR) Pathologist Sig nature Result See comment [facility] Gram Stain Result 3+ WBCs [facility] Gram Stain Result <1+ budding yeast [facility] Specimen BAL - Right lung structure (body structu re) Narrative Performed At 1+ Yeast [facility] No Normal respiratory ricardo present Performing Organization Address City/[facility]/Zipcode Phone Number [address] [phone] [place] Peripheral Blood Smear - Path Review (02/11/2020 2:03 PM CDT) WBC Morphology Toxic Granulation [facility] Pathologist Review Cell counts [facility] confirmed. [facility] Pathologist: Jennifer Oleary M.D. [facility] (electronic [facility]) [facility] Specimen Blood Performing Organization Address City/[facility] Corporationcode Phone Number [address] [address] CENTER Central Line (02/10/2020 10:45 PM CDT) Narrative Performed At Yoli Gallagher NP 2019 10:47 PM Central Line Date/Time: 02/10/2020 10:45 PM Performed by: Yoli Gallagher N P Authorized by: Yoli Gallagher NP Consent: Written consent obtained. Risks and benefits: risks, benefits and alternatives were discussed Consent given by: spouse Procedure consent: procedure consent mat ches procedure scheduled Relevant documents: relevant documents p resent and verified Test results: test results available and properly labeled Site marked: the operative site was roque ed Imaging studies: imaging studies availab le Patient identity confirmed: arm band, pr ovided demographic data and hospital-assigned identification number Time out: Immediately prior to procedure a "time out" was called to verify the correct patient, procedure, equipmen t, it application support analyst and site/side marked as required. Indications: vascular access Anesthesia: local infiltration Anesthesia: Local Anesthetic: lidocaine 1% without e pinephrine Anesthetic total: 1 mL Sedation: Patient sedated: yes Preparation: skin prepped with 2% chlorh exidine Skin prep agent dried: skin prep agent completely drie d prior to procedure Sterile barriers: all five maximum steri le barriers used - cap, mask, sterile gown, sterile gloves, and large sterile sheet Hand hygiene: hand hygiene performed otis or to central venous catheter insertion Location details: right internal jugular Patient position: flat Catheter type: triple lumen Pre-procedure: landmarks identified Ultrasound guidance: yes Sterile ultrasound techniques: sterile gel and sterile probe covers were used Number of attempts: 1 Successful placement: yes Post-procedure: line sutured and dressin g applied Assessment: blood return through all ports, free flu id flow, placement verified by x-ray and no pneumothorax on x-ray Immediate Post-Procedure Note Date/Time: 02/10/2020 10:30 PM Assistants to the procedure: None Pre-procedure diagnosis: Septic shock Post-procedure diagnosis: Septic shock Procedures Performed: Central Line Specimens removed: None Estimated blood loss (mL): None Complications: None Type of anesthesia: None Grafts or Implants: None 2D Echo W/Doppler(CW/PW/Color) (02/10/2020 6:11 PM CDT) Pathologist Sig nature Ejection Fraction [facility] Specimen Narrative Performed At Transthoracic Echocardiography Report (T TE) [facility] Demographics Patient Name JAMES PURI Date of Study 02/10/2020 GENE Gender Male Visit Number [id number] Race Unknown Room Number 7516 Number Date of 1935 Referring DANI Bean Physician PRADIP GILES Age 84 year(s) Outsole Handler Daija Rodriguez [facility] Interpreting Edgard chacon MD Physician Fellow Austyn Cary MD Procedure Type of Study TTE procedure:2DECHO W DOPPLER(CW/PW/COLOR) (STAT) Indications:Shortness of breath. Clinical History HIGH CHOLEST;PNEUMOTHORAX. Contrast Medium: Definity. Height: 71 inches Weight: 68.04 kg (150 lbs) BSA: 1.87 m^2 BMI: 20.92 kg/m^2 HR: 68 bpm BP: 111/63 mmHg Summary Very Technically poor study, but by apical views, the 4 chambers appears grossly normal in size and function. No significant valve disease detected by Doppler; no pericardial effusion. Signature Findings Rhythm/BP Regular sinus rhythm during the exam. Left Ventricle The LV endocardium is adequately visualized. The left ventricle is chamber size (by vol index) is normal (male - LVED vol - 34-74ml/m2). Normal LV wall thickness. All of the LV segments contract normally . LVEF by Vivas's method of disk assessment is increased (>70%) . LV diastolic function is indeterminate. Left Atrium LA is incompletely visualized. LA size is normal (16-34 ml/m2) . Right Ventricle The right ventricular chamber size and systolic function are within normal limits. Right Atrium RA size is normal. Aortic Valve The aortic valve is not well visualized. Mitral Valve Mild MV leaflet thickening. Tricuspid Valve The tricuspid valve is not well visualized. Pulmonic Valve PV is not well visualized; function appears normal by Doppler visualized. Aorta The aorta is not well visualized Pericardium No significant pericardial effusion is visualized. IVC/SVC/PA/PV/Pleural The IVC is <2.1cm and >50% collapsible suggestive of RAP of 3 mm Hg. Chambers/Structures Left Atrium LA Volume: 45.44 ml LA Area: 16.42 cm^2 LA Vol. Index: 24 ml/m^2 Left Ventricle LVIDd: 4.01 cm LV Septum Diastolic: 0.9 cm LV PW Diastolic: 1.07 cm LVEDV Vivas's:83.45 ml LVESV Vivas's:20.21 ml LVEF Vivas's: 75.8 % LVEDVI: 45 ml/m^2 LVESVI: 11 ml/m^2 Right Ventricle RV Diast Dim.: 3.61 cm Vena Cava IVC Expirium: 1.68 cm Doppler/Quantitative Measurements Mitral Valve MV Peak E-Wave: 0.53 m/s MV Peak A-Wave: 0.6 m/s E/A Ratio: 0.89 Peak Gradient: 1.12 mmHg Deceleration Time: 224 msec MV Mark. Peak: Tissue Doppler E' Septal Velocity: 0.08 m/s E/E': 4.94 E' Lateral Velocity: 0.11 m/s Aortic Valve Peak Velocity: 1.21 m/s Mean Velocity: 0.76 m/s Peak Gradient: 5.84 mmHg Mean Gradient: 2.62 mmHg AV VTI: 30.15 cm AV DVI: 0.83 LVOT Peak Velocity: 0.99 m/s Peak Gradient: 3.93 mmHg Mean Velocity: 0.66 m/s Mean Gradient: 2.05 mmHg LVOT VTI: 25.08 cm Tricuspid Valve Procedure Note Interface, External Ris In - 02/11/2020 8:30 AM CDT Transthoracic Echocardiography Report (TTE) Demographics Patient Name JAMES PURI Date of Study 02/10/2020 GENE Gender Male Visit Number [id number] Race Unknown Room Num [facility] 7516 Number Date of 1935 Josselin Presley n BRYANTEULALIA Age 84 year(s) Sonograp her Daija Rodriguez [facility] MD Fernandez Do n Fellow Austyn Cary MD Procedure Type of Study TTE procedure:2DECHO W DOPPLE R(CW/PW/COLOR) (STAT) Indications:Shortness of breath. Clinical History HIGH CHOLEST;PNEUMOTHORAX. Contrast Medium: Definity. Height: 71 inches Weight: 68.04 kg (150 lbs) BSA: 1.87 m^2 BMI: 20.92 kg/m^2 HR: 68 bpm BP: 111/63 mmHg Summary Very Technically poor study, but by api heather views, the 4 chambers appears grossly normal in size and function. No significant valve disease detected b y Doppler; no pericardial effusion. Signature Findings Rhythm/BP Regular sinus rh ythm during the exam. Left Ventricle The LV endocardi um is adequately visualized. The left ventric le is chamber size (by vol index) is normal (male - LVED vol - 34-74ml/m2). Normal LV wall t hickness. All of the LV se gments contract normally . LVEF by Vivas' s method of disk assessment is increased (>70%) . LV diastolic fun ction is indeterminate. Left Atrium LA is incomplete ly visualized. LA size is hiral l (16-34 ml/m2) . Right Ventricle The right ventri cular chamber size and systolic function are wit hin normal limits. Right Atrium RA size is hiral l. Aortic Valve The aortic valve is not well visualized. Mitral Valve Mild MV leaflet thickening. Tricuspid Valve The tricuspid va lve is not well visualized. Pulmonic Valve PV is not well v isualized; function appears normal by Doppler visua lized. Aorta The aorta is not well visualized Pericardium No significant p ericardial effusion is visualized. IVC/SVC/PA/PV/Pleural The IVC is <2.1c m and >50% collapsible suggestive of RAP of 3 mm H g. Chambers/Structures Left Atrium LA Volume: 45.44 ml LA Area: 16.42 cm^2 LA Vol. Index: 24 ml/m^2 Left Ventricle LVIDd: 4.01 cm LV Septum Diastolic: 0.9 cm LV PW Diastolic: 1.07 cm LVEDV Vivas's:83.45 ml LVESV Vivas's:20.21 ml LVEF Vivas's: 75.8 % LVEDVI: 45 ml/m^2 LVESVI: 11 ml/m^2 Right Ventricle RV Diast Dim.: 3.61 cm Vena Cava IVC Expirium: 1.68 cm Doppler/Quantitative Measurements Mitral Valve MV Peak E-Wave: 0.53 m/s MV Peak A-Wave: 0.6 m/s E/A Ratio: 0.89 Peak Gradient: 1.12 mmHg Deceleration Time: 224 msec MV Mark. Peak: Tissue Doppler E' Septal Velocity: 0.08 m/s E/E': 4.94 E' Lateral Velocity: 0.11 m/s Aortic Valve Peak Velocity: 1.21 m/s Me an Velocity: 0.76 m/s Peak Gradient: 5.84 mmHg Me an Gradient: 2.62 mmHg AV VTI: 30.15 cm AV DVI: 0.83 LVOT Peak Velocity: 0.99 m/s Pea k Gradient: 3.93 mmHg Mean Velocity: 0.66 m/s Bailey n Gradient: 2.05 mmHg LVO T VTI: 25.08 cm Tricuspid Valve Performing Organization Address City/State/Zipcode Phone Number [facility] abdomen/pelvis with IV contrast (02/10/2020 11:41 AM CDT) Specimen Narrative Performed At FINAL REPORT [facility] CT of the Chest, abdomen and pelvis date d 02/10/2020 Clinical information: Change in bowel arellano bits (Ped 0-18y) Comment: Axial images of the chest, ab domen, and pelvis were obtained from thoracic inlet to the pubi c symphysis with intravenous contrast. This exam was performed according to our departmental dose-optimization program, which include s automated exposure control, adjustment of the mA and/or kV according to patient size and/or use of interactive reconstruction technique. Heart is normal in size. Great vessels are unremarkable. No adenopathy in the mediastinum or perihil ar region. Fluid is seen in the left main, upper an d lower lobe bronchi. Small amount fluid is seen in the right lower lobe bronchus. A large left pneumothorax is seen. There is atelectasis involving the left lung and subsegmental atelectasis i n the right lower lobe. Airspace disease is seen in the superior segment of the right lower and right mid lobes suggestive of pneumo bridgette. There is small bilateral pleural effusio n. Liver and spleen are normal in size. A 3 .3 x 3.2 cm cyst is seen in the segment to 4 of the liver. A 2.0 x 2 .8 cm cyst is seen in the segment 5 of the liver. Gallbladder is s omewhat distended. No gallstone or biliary dilatation is noted . Pancreas and adrenals are unremarkable. Both kidneys are normal in size and func tioning. No hydronephrosis, hydroureter, or urolithiasis is noted. A 5.7 x 6 cm cyst is seen in the mid inferior pole left kidney. Diverticular disease is seen in the larg e bowel without diverticulitis. The small bowel is hiral l in caliber. Appendix is not visualized. Prostate is prominent measuring approxim ately 4.8 x 4.9 x 4.6 cm. The urinary bladder is contracted. Impression: 1. Large left pneumothorax. The findings were relayed to patient's nurse Denise at the time of dictation. 2. Bilateral pleural effusion with atele ctasis of the left lung and subsegmental atelectasis in the right lo wer lobe. 3. Airspace disease in the superior segm ent of the right lower and right mid lobes suggestive of aspiration pneumonia. 4. Liver and left renal cysts. 5. Diverticulosis without diverticulitis . 6. Prostate enlargement. Signed: Daisy Ansari MD Report Verified Date/Time: 02/10/2020 13:43:47 Reading Location: [place] [id number] CT Body R ding Room Procedure Note Interface, External Ris In - 02/10/2020 1:45 PM CDT FINAL REPORT CT of the Chest, abdomen and pelvis date d 02/10/2020 Clinical information: Change in bowel arellano bits (Ped 0-18y) Comment: Axial images of the chest, abd omen, and pelvis were obtained from thoracic inlet to the pubi c symphysis with intravenous contrast. This exam was performed according to our departmental dose-optimization program, which include s automated exposure control, adjustment of the mA and/or kV according to patient size and/or use of interactive reconstruction technique. Heart is normal in size. Great vessels are unremarkable. No adenopathy in the mediastinum or perihil ar region. Fluid is seen in the left main, upper an d lower lobe bronchi. Small amount fluid is seen in the right lower lobe bronchus. A large left pneumothorax is seen. There is atelectasis involving the left lung and subsegmental atelectasis i n the right lower lobe. Airspace disease is seen in the superior segment of the right lower and right mid lobes suggestive of pneumo bridgette. There is small bilateral pleural effusio n. Liver and spleen are normal in size. A 3 .3 x 3.2 cm cyst is seen in the segment to 4 of the liver. A 2.0 x 2 .8 cm cyst is seen in the segment 5 of the liver. Gallbladder is s omewhat distended. No gallstone or biliary dilatation is noted . Pancreas and adrenals are unremarkable. Both kidneys are normal in size and func tioning. No hydronephrosis, hydroureter, or urolithiasis is noted. A 5.7 x 6 cm cyst is seen in the mid inferior pole left kidney. Diverticular disease is seen in the larg e bowel without diverticulitis. The small bowel is hiral l in caliber. Appendix is not visualized. Prostate is prominent measuring approxim ately 4.8 x 4.9 x 4.6 cm. The urinary bladder is contracted. Impression: 1. Large left pneumothorax. The findings were relayed to patient's nurse Denise at the time of dictation. 2. Bilateral pleural effusion with atele ctasis of the left lung and subsegmental atelectasis in the right lo wer lobe. 3. Airspace disease in the superior segm ent of the right lower and right mid lobes suggestive of aspiration pneumonia. 4. Liver and left renal cysts. 5. Diverticulosis without diverticulitis . 6. Prostate enlargement. Signed: Daisy Ansari MD Report Verified Date/Time: 02/10/2020 1 3:43:47 Reading Location: [facility] C013Y CT Body R [facility] Room Performing Organization Address City/State/Zipcode Phone Number [facility] CT chest with IV contrast (02/10/2020 11:41 AM CDT) Specimen Narrative Performed At FINAL REPORT [facility] CT of the Chest, abdomen and pelvis date d 02/10/2020 Clinical information: Change in bowel arellano bits (Ped 0-18y) Comment: Axial images of the chest, ab domen, and pelvis were obtained from thoracic inlet to the pubi c symphysis with intravenous contrast. This exam was performed according to our departmental dose-optimization program, which include s automated exposure control, adjustment of the mA and/or kV according to patient size and/or use of interactive reconstruction technique. Heart is normal in size. Great vessels are unremarkable. No adenopathy in the mediastinum or perihil ar region. Fluid is seen in the left main, upper an d lower lobe bronchi. Small amount fluid is seen in the right lower lobe bronchus. A large left pneumothorax is seen. There is atelectasis involving the left lung and subsegmental atelectasis i n the right lower lobe. Airspace disease is seen in the superior segment of the right lower and right mid lobes suggestive of pneumo bridgette. There is small bilateral pleural effusio n. Liver and spleen are normal in size. A 3 .3 x 3.2 cm cyst is seen in the segment to 4 of the liver. A 2.0 x 2 .8 cm cyst is seen in the segment 5 of the liver. Gallbladder is s omewhat distended. No gallstone or biliary dilatation is noted . Pancreas and adrenals are unremarkable. Both kidneys are normal in size and func tioning. No hydronephrosis, hydroureter, or urolithiasis is noted. A 5.7 x 6 cm cyst is seen in the mid inferior pole left kidney. Diverticular disease is seen in the larg e bowel without diverticulitis. The small bowel is hiral l in caliber. Appendix is not visualized. Prostate is prominent measuring approxim ately 4.8 x 4.9 x 4.6 cm. The urinary bladder is contracted. Impression: 1. Large left pneumothorax. The findings were relayed to patient's nurse Denise at the time of dictation. 2. Bilateral pleural effusion with atele ctasis of the left lung and subsegmental atelectasis in the right lo wer lobe. 3. Airspace disease in the superior segm ent of the right lower and right mid lobes suggestive of aspiration pneumonia. 4. Liver and left renal cysts. 5. Diverticulosis without diverticulitis . 6. Prostate enlargement. Signed: Daisy Ansari MD Report Verified Date/Time: 02/10/2020 13:43:47 Reading Location: [facility] C013Y CT Body R [facility] Room Procedure Note Interface, External Ris In - 02/10/2020 1:45 PM CDT FINAL REPORT CT of the Chest, abdomen and pelvis date d 02/10/2020 Clinical information: Change in bowel arellano bits (Ped 0-18y) Comment: Axial images of the chest, abd omen, and pelvis were obtained from thoracic inlet to the pubi c symphysis with intravenous contrast. This exam was performed according to our departmental dose-optimization program, which include s automated exposure control, adjustment of the mA and/or kV according to patient size and/or use of interactive reconstruction technique. Heart is normal in size. Great vessels are unremarkable. No adenopathy in the mediastinum or perihil ar region. Fluid is seen in the left main, upper an d lower lobe bronchi. Small amount fluid is seen in the right lower lobe bronchus. A large left pneumothorax is seen. There is atelectasis involving the left lung and subsegmental atelectasis i n the right lower lobe. Airspace disease is seen in the superior segment of the right lower and right mid lobes suggestive of pneumo bridgette. There is small bilateral pleural effusio n. Liver and spleen are normal in size. A 3 .3 x 3.2 cm cyst is seen in the segment to 4 of the liver. A 2.0 x 2 .8 cm cyst is seen in the segment 5 of the liver. Gallbladder is s omewhat distended. No gallstone or biliary dilatation is noted . Pancreas and adrenals are unremarkable. Both kidneys are normal in size and func tioning. No hydronephrosis, hydroureter, or urolithiasis is noted. A 5.7 x 6 cm cyst is seen in the mid inferior pole left kidney. Diverticular disease is seen in the larg e bowel without diverticulitis. The small bowel is hiral l in caliber. Appendix is not visualized. Prostate is prominent measuring approxim ately 4.8 x 4.9 x 4.6 cm. The urinary bladder is contracted. Impression: 1. Large left pneumothorax. The findings were relayed to patient's nurse Denise at the time of dictation. 2. Bilateral pleural effusion with atele ctasis of the left lung and subsegmental atelectasis in the right lo wer lobe. 3. Airspace disease in the superior segm ent of the right lower and right mid lobes suggestive of aspiration pneumonia. 4. Liver and left renal cysts. 5. Diverticulosis without diverticulitis . 6. Prostate enlargement. Signed: Daisy Ansari MD Report Verified Date/Time: 02/10/2020 1 3:43:47 Reading Location: [facility] B1 C013Y CT Body R eading Room Performing Organization Address City/State/Zipcode Phone Number [facility] Insert Arterial Line (02/10/2020 1:22 AM CDT) Narrative Performed At Kathy Calzada NP 02/10/2020 1:25 AM Insert Arterial Line Date/Time: 02/10/2020 1:22 AM Performed by: Kathy Calzada NP Authorized by: Kathy Calzada NP Consent: The procedure was performed in an emergent situation. Risks and benefits: risks, benefits and alternatives were discussed Site marked: n/a. Imaging studies available: n/a. Required items: required blood products, implants, devices, and special equipment available Patient identity confirmed: mirella torrez-assigned identification number and anonymous protocol, patient v ented/unresponsive Time out: Immediately prior to procedure a "time out" was called to verify the correct patient, procedure, equipmen t, it application support analyst and site/side marked as required. Preparation: Patient was prepped and draped in the usu al sterile fashion. Indications: hemodynamic monitoring Location: left radial Anesthesia: local infiltration Anesthesia: Local Anesthetic: lidocaine 2% without e pinephrine Anesthetic total: 2 mL Sedation: Patient sedated: no Garrett's test normal: yes Needle gauge: 20 Seldinger technique: Seldinger technique used Number of attempts: 1 Post-procedure: line sutured and dressin g applied Post-procedure CMS: normal and unchanged Patient tolerance: patient tolerated the procedure wel l with no immediate complications Comments: Placed left radial arterial line emergently. Good blood return and wave form present. No hematoma or bleeding noted. Dressing in place. MR brain without & with IV contrast (02/09/2020 10:05 PM CDT) Specimen Narrative Performed At FINAL REPORT [facility] MRI brain with and without contrast Comparison: No prior study for direct comparison. Reason for exam: Subarachnoid hemorrhage , follow-up Technique: Multiplanar multi sequential MRI of the brain was performed with and without intravenous c ontrast. Findings: There is diffuse subarachnoid hemorrhage in bilateral cerebral hemispheres. There are small bilateral p osterior cerebral convexity subdural hematomas. There are small subd ural hematomas in the left posterior parafalcine region and bilater al tentorial leaflets. There is a small layering hemorrhage in the bi lateral occipital horns and fourth ventricle. There is no intracranial mass, mass effe ct, hydrocephalus or herniation. There is no restricted dif fusion to suggest an acute infarct. There is no abnormal enhancemen t. The skull base flow-voids are seen in ke eping with their patency. The visualized paranasal sinuses and mas toid air cells are clear. The orbits, sella and parasellar regions are unremarkable. The craniocervical junction is normal. Impression: Diffuse bilateral cerebral subarachnoid hemorrhage. Small intraventricular hemorrhage. Small subdural hematomas in the bilatera l posterior cerebral convexities, bilateral tentorial leaflet s and along the left posterior falx. No abnormal enhancement, mass effect or hydrocephalus. Signed: Carola Roman MD Report Verified Date/Time: 02/10/2020 01:23:45 Procedure Note Interface, External Ris In - 02/10/2020 1:25 AM CDT FINAL REPORT MRI brain with and without contrast Comparison: No prior study for direct c omparison. Reason for exam: Subarachnoid hemorrhage , follow-up Technique: Multiplanar multi sequential MRI of the brain was performed with and without intravenous c ontrast. Findings: There is diffuse subarachnoid hemorrhage in bilateral cerebral hemispheres. There are small bilateral p osterior cerebral convexity subdural hematomas. There are small subd ural hematomas in the left posterior parafalcine region and bilater al tentorial leaflets. There is a small layering hemorrhage in the bi lateral occipital horns and fourth ventricle. There is no intracranial mass, mass effe ct, hydrocephalus or herniation. There is no restricted diff usion to suggest an acute infarct. There is no abnormal enhancemen t. The skull base flow-voids are seen in ke eping with their patency. The visualized paranasal sinuses and mas toid air cells are clear. The orbits, sella and parasellar regions are unremarkable. The craniocervical junction is normal. Impression: Diffuse bilateral cerebral subarachnoid hemorrhage. Small intraventricular hemorrhage. Small subdural hematomas in the bilatera l posterior cerebral convexities, bilateral tentorial leaflet s and along the left posterior falx. No abnormal enhancement, mass effect or hydrocephalus. Signed: Carola Roman MD Report Verified Date/Time: 02/10/2020 0 1:23:45 Performing Organization Address City/State/Zipcode Phone Number [facility] 1/2 PCR, Qualitative (02/09/2020 11:57 AM CDT) Pathologist Sig nature HSV, PCR NEGATIVE NEGATIVE [facility] Comment: [facility] Test performed by: [facility], flux - neutrinity. [id number] [place] [address] Specimen Other - Whole Blood Narrative Performed At This result has an attachment that is no t available. Herpes Simplex Virus (HSV) not detected. [facility] Performing Organization Address City/[facility] Phone Number [facility] [address] [place] [address] CENTER CBC (Hemogram only) (02/09/2020 11:57 AM CDT)Only the most recent of2 results within the time period is included. Pathologist Sig nature WBC 23.9 (H) 3.5 - 10.5 K/L [facility] RBC 4.84 4.63 - 6.08 M/L [facility] Hemoglobin 15.3 13.7 - 17.5 GM/DL [facility] Hematocrit 46.8 40.1 - 51.0 % [facility] MCV 96.7 (H) 79.0 - 92.2 fL [facility] MCH 31.6 25.7 - 32.2 pg [facility] MCHC 32.7 32.3 - 36.5 GM/DL [facility] RDW 12.5 11.6 - 14.4 % [facility] Platelets 254 150 - 450 K/CU MM [facility] MPV 11.5 9.4 - 12.4 fL [facility] nRBC 0 0 - 0 /100 WBC [facility] Specimen Blood Performing Organization Address City/State/Zipcode Phone Number [address] [address] [place] HIV-1 Antigen with HIV-1/2 Antibody (02/08/2020 12:24 PM CDT) Pathologist Sig nature HIV-1 Antigen with Nonreactive Nonreactive [facility] CENTER HIV 1&2 Antibody [facility] Specimen Blood Narrative Performed At Correctional Treatment Specialist ID - PIAYA L [facility] Performing Organization Address City/[facility]/Zipcode Phone Number [address] [phone] JASPER RPR (02/08/2020 12:24 PM CDT) Pathologist Sig nature RPR Nonreactive Nonreactive [facility] Specimen Blood Performing Organization Address City/[facility] Phone Number [address] [phone] JASPER [place] Lumbar Puncture Image-Guided (02/08/2020 10:41 AM CDT) Specimen Narrative Performed At FINAL REPORT GE RIS [place], LUMBAR PUNCTURE, FLUORO INDICATION: r/o csf infection MODALITY: Fluoroscopy PROCEDURE: Informed consent: The procedure was discussed in detail wi th the patient's , including the indication, benefits, risk s, alternatives, and potential complications. All questions w ere answered to the patient's 's satisfaction. The patient's wished to proceed and informed consent was obtained. Time out: A time out was performed to co nfirm the correct patient, procedure, and site. Site and preparation: With fluoroscopic guidance (employing low-dose radiation), under sterile conditions and with local anesthesia, lumbar puncture was undertaken at L2-3, L3-4 and L4-5. The L2-3 level had no clear canal access due to osteoph yte formation. Needle positioning was demonstrated appropriate at L3-4 and L4-5 utilizing both frontal and lateral fluoroscopic gu idance. No CSF could be obtained at any of the three attempted l evels. Complications: None FLUOROSCOPY TIME: 0.4 minutes # Fluoroscopic images: 5 IMPRESSION: Unsuccessful fluoroscopically guided lum bar puncture. Signed: JR Patrick Robert MD Report Verified Date/Time: 02/08/2020 11:43:08 Reading Location: [address] Room Procedure Note Interface, External Ris In - 02/08/2020 11:45 AM CDT FINAL REPORT FL, LUMBAR PUNCTURE, FLUORO INDICATION: r/o csf infection MODALITY: Fluoroscopy PROCEDURE: Informed consent: The procedure was discussed in detail wi th the patient's , including the indication, benefits, risk s, alternatives, and potential complications. All questions w ere answered to the patient's 's satisfaction. The patient's wished to proceed and informed consent was obtained. Time out: A time out was performed to co nfirm the correct patient, procedure, and site. Site and preparation: With fluoroscopic guidance (employing low-dose radiation), under sterile conditions and with local anesthesia, lumbar puncture was undertaken at L2-3, L3-4 and L4-5. The L2-3 level had no clear canal access due to osteoph yte formation. Needle positioning was demonstrated appropriate at L3-4 and L4-5 utilizing both frontal and lateral fluoroscopic gu idance. No CSF could be obtained at any of the three attempted l evels. Complications: None FLUOROSCOPY TIME: 0.4 minutes # Fluoroscopic images: 5 IMPRESSION: Unsuccessful fluoroscopically guided lum bar puncture. Signed: JR Patrick Robert MD Report Verified Date/Time: 02/08/2020 1 1:43:08 Reading Location: [facility] [address] [place] [address] Room Performing Organization Address City/State/Zipcode Phone Number GE RIS West Nile antibodies (IgG, IgM) (02/07/2020 2:09 PM CDT) West Nile Virus <1.30 [facility] West Nile Virus <0.90 [facility] IgM Comment: INCORPORATED REFERENCE RANGE: IgG <1.30 IgM <0.90 Interpretive Criteria: IgG: <1.30 Antibody not detected 1.30 - 1.49 Equivocal >1.49 Antibody detected West Nile IgG antibodies are often not detectable unti l day 4 or 5 of illness. In a patient who is IgM positiv e but IgG negative, a convalescent phase specimen obtain ed 7-14 days after the initial specimen should be tested to document IgG seroconversion. Interpretive Criteria: IgM: <0.90 Antibody not detected 0.90 - 1.10 Equivocal >1.10 Antibody detected West Nile virus (WNV) IgM is usually detectable in serum specimens from WNV-infected patients at the time of clinical presentation. Because serum IgM antibody m ay persist for more than a year in some patients, its pre sence may indicate WNV infection in the previous year and be unrelated to the current clinical presentation. Antibodies induced by other flavivirus infections (e.g. Dengue virus, [place] encephalitis virus) may show cross-reactivity with WNV. Specimen Blood Narrative Performed At Performing Lab [facility] *[employer] [facility] [employer] [address] [place] [address] Ramon Rebollar MD Performing Organization Address City/[facility] Corporation[facility] Phone Number [place] [address] INCORPORATED [id number] [facility] Vancomycin level, random (02/07/2020 2:09 PM CDT) Pathologist Sig nature Vancomycin Rm 15.9 ug/mL [facility] Specimen Blood Narrative Performed At Reference Range: No Normals [facility] CENTER Correctional Treatment Specialist ID - BS Performing Organization Address City/[facility]/Zipcode Phone Number [facility] [address] [place] [address] CENTER Venous doppler arms bilateral (02/07/2020 12:06 PM CDT) Pathologist Sig nature Ejection Fraction [facility] Specimen Impressions Performed At Right Impression [facility] 1. There is no deep venous obstruction in the jugular, brachial, radial or ulnar veins. 2. There is partial deep venous obstruction in the subclavian vein. 3. There is total deep venous obstruction in the axillary vein. 4. There is no superficial venous obstruction in the cephahlic vein. 5. There is total superficial venous osbtruction in the basilic vein. Left Impression 1. There is no deep venous obstruction in the jugular, subclavian, axillary, brachial, radial or ulnar veins. 2. There is no superficial venous obstruction in the basilic vein. 3. There is total superficial venous obstruction in the forearm cephalic vein. Conclusions Summary Venous duplex imaging and compression of the bilateral upper extremities was performed. The veins were adequately visualized. 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 The right superficial venous system was positive with acute thrombus. The left deep venous system was patent and compressible with no evidence of thrombus. The left superficial venous system was positive with acute thrombus. Signature Velocities are measured in cm/s ; Diameters are measured in cm Narrative Performed At PV LAB - Upper Extremities Veins [facility] Demographics Patient Name JAMES PURI Date of Study 02/07/2020 Age 84 Visit Number [id number] Gender Male Date of 1935 Number Referring [facility] Room Number [id number] Physician Federico Outsole Handler June Hermosillo RVT Interpreting NatiDeya Gonzales MD Procedure Type of Study: Veins: Upper Extremities Veins, VENOUS DOPPLER ARMS, BILATERAL. Indications for Study:DVT SCAN. Patient Status:Routine. Study Location:Portable. Technical Quality:Technically Difficult. - Results were reported to: Medina Bullard Risk Factors History of Disease + +----+--------+ !Diagnosis !Date!Comments! + +----+--------+ !History/Risk Factors: ! !HT N, HLD! + +----+--------+ Procedure Note Interface, External Ris In - 02/07/2020 9:14 PM CDT PV LAB - Upper Extremities Veins Demographics Patient Name JAMES PURI Date of Study 02/07/2020 Age 84 Visit Number [id number] Gender Male Date of 1935 Number Referring Ronald ramos Room Number [id number] Physician Nilda Outsole Handler June Hermosillo RVT Interpreting Deya Orellana MD Procedure Type of Study: Veins: Upper Extremities Veins, VENOUS DOPPLER ARMS, BILATERAL. Indications for Study:DVT SCAN. Patient Status:Routine. Study Location:Portable. Technical Quality:Technically Difficult. - Results were reported to: EMY Bullard . Risk Factors History of Disease + +----+--------+ !Diagnosis !Date!Comments! + +----+--------+ !History/Risk Factors: ! !HTN, HLD! + +----+--------+ Impressions Right Impression 1. There is no deep venous obstruction i n the jugular, brachial, radial or ulnar veins. 2. There is partial deep venous obstruct ion in the subclavian vein. 3. There is total deep venous obstructio n in the axillary vein. 4. There is no superficial venous obstru ction in the cephahlic vein. 5. There is total superficial venous osb truction in the basilic vein. Left Impression 1. There is no deep venous obstruction i n the jugular, subclavian, axillary, brachial, radial or ulnar veins. 2. There is no superficial venous obstru ction in the basilic vein. 3. There is total superficial venous obs truction in the forearm cephalic vein. Conclusions Summary Venous duplex imaging and compression o f the bilateral upper extremities was performed. The veins were adequatel y visualized. The right deep venous system was positive with acute on top o f chronic thrombus. The right superficial venous system was positive with acute thrombus. The left deep venous system was patent and compressib le with no evidence of thrombus. The left superficial venous system was positive with acute thrombus. Signature Velocities are measured in cm/s ; Diamet ers are measured in cm Performing Organization Address City/State/Zipcode Phone Number [facility] [place] cerebral 4 vessel angiogram (02/07/2020 10:15 AM CDT)Only the most recent of2 resultswithin the time period is included. Specimen Narrative Performed At FINAL REPORT [facility] Date of Procedure: 02/07/2020 Surgeon: RJ Rivas Machine Shop Worker: Musa Ortiz MD Pre-operative diagnosis: Subarachnoid he morrhage Post-operative diagnosis: Subarachnoid h emorrhage Procedure: Diagnostic cerebral angiogram Anesthesiologist: per anesthesia records Anesthesia Type: GA Complications: None apparent Vessel injections: 1. Right femoral artery 2. Right common carotid artery 3. Left common carotid artery 4. Right vertebral artery 5. Left vertebral artery Indication for procedure: Patient is a 84-year-old man with a hist ory of hypertension and hyperlipidemia, transferred from an [facility] hospital, found to have diffuse subarachnoid hemorrhage. Per rep ort, the patient developed severe headache, neck pain, nausea, vomi ting three days prior to presentation. He had no recent trauma or fall. At the outside hospital he was found to have been, diff use subarachnoid hemorrhage and was transferred to [facility] for further evaluation and management. Upon arrival patient was fou nd to have some confusion but no focal neurologic deficits. A CT angio gram was done without evidence of aneurysm or other vascular l esions. A diagnostic cerebral angiogram was performed last week which was negative for intracranial aneurysm. He returns for follow-up cereb ral angiogram. Procedure in Detail: Angiogram Following explanation of the benefits, r isks and alternatives for the procedure, informed consent was obtained from the patient. The risks including but not limited to stroke, int racranial hemorrhage, vascular injury to the cervical or acces s vessels were discussed. A time-out was performed. Both groins and wrists were prepped in the usual sterile fashion using Chloroprep, and sterilely draped. Access was initiated at the right femoral arter y under ultrasound guidance (see medical record for images) and a 5 [place]udian sheath was placed and maintained on heparinized flush. A 5 [facility] diagnostic catheter was introduced and brought into the aortic a [facility] under fluoroscopic guidance. The diagnostic catheter was us ed to catheterize the right common carotid artery, right vertebral a rtery, left common carotid artery, and left vertebral artery. Upon each successive selective catheterization, digital subtraction ang iography using the appropriate rate and volume of contrast in multiple projections was performed. After adequate visualization of all vessels all sheaths and catheters were removed and an Angio- Seal device was used for hemostasis. The patient was transported to the ICU in stable condition Findings: Right Femoral Artery (AP and Lateral) -The sheath enters above the femoral bif urcation. The femoral artery and bifurcation are widely patent withou t evidence of ulceration or stenosis. Right Common Carotid Artery, Intracrania l (AP, Lateral, Transorbital oblique) -The cervical carotid artery is patent w ithout areas of stenosis, dissection or ulceration; and is without branches -The petrous carotid artery is patent wi thout areas of stenosis, dissection or ulceration the mandibulovi tiffanie artery is not visualized, no petrosal segment aneurysm s -The cavernous carotid artery is patent without areas of stenosis, dissection, or ulceration, meningohypoph yseal trunk and inferolateral trunks are not visualized, there are no cavernous segment aneurysms -The supraclinoidal carotid artery, th e opthalmic, communicating, and choroidal segments are patent withou t areas of stenosis and without aneurysms. The posterior communi cating artery is large in caliber, and in configuration. The anterior choroidal artery is visualized. The A1 and M1 segments are v isualized and are without stenosis or significant vasospasm. -The KEL fill physiologically throughout their territory without cross-filling across the anterior commun icating artery. There is no noted stenosis or vasospasm noted within its branches. There are no noted aneurysms of the pericallosal or c allosomarginal branches. There is no evidence of arteriovenous sh unting -The MCA's fill physiologically througho ut their territory there is no noted stenosis, occlusion or vasospas m noted within its branches. There is no evidence for aneurysm. There is no evidence of arteriovenous shunting. The capillary phase is normal without ar eas of malperfusion, the venous phase demonstrates a normal venou s draining pattern Left Common Carotid Artery, Intracranial (AP, Lateral, Transorbital oblique) -The cervical carotid artery is patent w ithout areas of stenosis, dissection or ulceration; and is without branches -The petrous carotid artery is patent wi thout areas of stenosis, dissection or ulceration the mandibulovi tiffanie artery is not visualized, no petrosal segment aneurysm s -The cavernous carotid artery is patent without areas of stenosis, dissection, or ulceration, meningohypoph yseal trunk and inferolateral trunks are not visualized, there are no cavernous segment aneurysms -The supraclinoidal carotid artery, th e opthalmic, communicating, and choroidal segments are patent withou t areas of stenosis and without aneurysms. The posterior communi cating artery is large in caliber and in configuration. The anterior choroidal artery is visualized. The A1 and M1 segments are v isualized and are without stenosis or vasospasm. -The KEL fill physiologically throughout their territory without cross-filling across the anterior commun icating artery. There is no noted stenosis or vasospasm noted within its branches. There are no noted aneurysms of the pericallosal or c allosomarginal branches. There is no evidence of arteriovenous sh unting -The MCA's fill physiologically througho ut their territory there is no noted stenosis, occlusion or vasospas m noted within its branches. There are no noted aneurysms. There is n o evidence of arteriovenous shunting. The capillary phase is normal without ar eas of malperfusion, the venous phase demonstrates a normal venou s draining pattern Right Vertebral Artery (Rajiv/Transfaci al, Lateral) -The cervical course of the right verteb ral artery has a normal course and appearance. Muscular branches arising from the distal segments are visualized. There is no art eriovenous shunting nor vascular malformations. -The vertebral artery terminates in the posterior inferior cerebellar artery, proximal to the vertebrobasilar junction. - A large posterior meningeal artery is seen. The capillary phase is normal and a normal venous drainage keren darwin is noted. Left Vertebral Artery (Rajiv/Transfacia l, Lateral) -The cervical course of the left vertebr al artery has a normal course and appearance. Muscular branches arisin g from the distal segments are visualized. There is no arteriovenou s shunting nor vascular malformations. -There is no cross-filling into the righ t vertebral artery retrograde. -There is no stenosis or ulceration note d in the vertebral or basilar arteries. PICA, AICA, and superior cereb ellar arteries are visualized no evidence of aneurysms at their origin s. The bullet assembly press setter operator are not well seen, indicating bilateral configu ration. There is no evidence of stenosis or vasospasm. -There is not reflux into the posterior communicating artery. -The capillary phase is normal and in no rmal venous drainage pattern is noted Summary of Findings 1. No intracranial aneurysms or vascular lesions identified. No evidence of significant vasospasm in the intracranial vasculature. 2. No clinical or radiographic evidence of applications. Signed: Jose Coffman MD Report Verified Date/Time: 02/07/2020 10:52:17 Reading Location: [address] Reading Room Procedure Note Interface, External Ris In - 02/07/2020 10:54 AM CDT FINAL REPORT Date of Procedure: 02/07/2020 Surgeon: RJ Rivas Machine Shop Worker: Musa Ortiz MD Pre-operative diagnosis: Subarachnoid he morrhage Post-operative diagnosis: Subarachnoid h emorrhage Procedure: Diagnostic cerebral angiogram Anesthesiologist: per anesthesia records Anesthesia Type: GA Complications: None apparent Vessel injections: 1. Right femoral artery 2. Right common carotid artery 3. Left common carotid artery 4. Right vertebral artery 5. Left vertebral artery Indication for procedure: Patient is a 84-year-old man with a hist ory of hypertension and hyperlipidemia, transferred from an outs [facility] hospital, found to have diffuse subarachnoid hemorrhage. Per rep ort, the patient developed severe headache, neck pain, nausea, vomi ting three days prior to presentation. He had no recent trauma or fall. At the outside hospital he was found to have been, diff use subarachnoid hemorrhage and was transferred to [facility] for further evaluation and management. Upon arrival patient was fou nd to have some confusion but no focal neurologic deficits. A CT angio gram was done without evidence of aneurysm or other vascular l esions. A diagnostic cerebral angiogram was performed last week which was negative for intracranial aneurysm. He returns for follow-up cereb ral angiogram. Procedure in Detail: Angiogram Following explanation of the benefits, r isks and alternatives for the procedure, informed consent was obtained from the patient. The risks including but not limited to stroke, int racranial hemorrhage, vascular injury to the cervical or acces s vessels were discussed. A time-out was performed. Both groins and wrists were prepped in the usual sterile fashion using Chloroprep, and sterilely draped. Access was initiated at the right femoral arter y under ultrasound guidance (see medical record for images) and a 5 [place]udian sheath was placed and maintained on heparinized flush. A 5 [facility] diagnostic catheter was introduced and brought into the aortic a rch under fluoroscopic guidance. The diagnostic catheter was us ed to catheterize the right common carotid artery, right vertebral a rtery, left common carotid artery, and left vertebral artery. Upon each successive selective catheterization, digital subtraction ang iography using the appropriate rate and volume of contrast in multiple projections was performed. After adequate visualization of all vessels all sheaths and catheters were removed and an Angio- Seal device was used for hemostasis. The patient was transported to the ICU in stable condition Findings: Right Femoral Artery (AP and Lateral) -The sheath enters above the femoral bif urcation. The femoral artery and bifurcation are widely patent withou t evidence of ulceration or stenosis. Right Common Carotid Artery, Intracrania l (AP, Lateral, Transorbital oblique) -The cervical carotid artery is patent w ithout areas of stenosis, dissection or ulceration; and is without branches -The petrous carotid artery is patent wi thout areas of stenosis, dissection or ulceration the mandibulovi tiffanie artery is not visualized, no petrosal segment aneurysm s -The cavernous carotid artery is patent without areas of stenosis, dissection, or ulceration, meningohypoph yseal trunk and inferolateral trunks are not visualized, there are no cavernous segment aneurysms -The supraclinoidal carotid artery, the opthalmic, communicating, and choroidal segments are patent withou t areas of stenosis and without aneurysms. The posterior communi cating artery is large in caliber, and in configuration. The anterior choroidal artery is visualized. The A1 and M1 segments are v isualized and are without stenosis or significant vasospasm. -The KEL fill physiologically throughout their territory without cross-filling across the anterior commun icating artery. There is no noted stenosis or vasospasm noted within its branches. There are no noted aneurysms of the pericallosal or c allosomarginal branches. There is no evidence of arteriovenous sh unting -The MCA's fill physiologically througho ut their territory there is no noted stenosis, occlusion or vasospas m noted within its branches. There is no evidence for aneurysm. There is no evidence of arteriovenous shunting. The capillary phase is normal without ar eas of malperfusion, the venous phase demonstrates a normal venou s draining pattern Left Common Carotid Artery, Intracranial (AP, Lateral, Transorbital oblique) -The cervical carotid artery is patent w ithout areas of stenosis, dissection or ulceration; and is without branches -The petrous carotid artery is patent wi thout areas of stenosis, dissection or ulceration the mandibulovi tiffanie artery is not visualized, no petrosal segment aneurysm s -The cavernous carotid artery is patent without areas of stenosis, dissection, or ulceration, meningohypoph yseal trunk and inferolateral trunks are not visualized, there are no cavernous segment aneurysms -The supraclinoidal carotid artery, the opthalmic, communicating, and choroidal segments are patent withou t areas of stenosis and without aneurysms. The posterior communi cating artery is large in caliber and in configuration. The anterior choroidal artery is visualized. The A1 and M1 segments are v isualized and are without stenosis or vasospasm. -The KEL fill physiologically throughout their territory without cross-filling across the anterior commun icating artery. There is no noted stenosis or vasospasm noted within its branches. There are no noted aneurysms of the pericallosal or c allosomarginal branches. There is no evidence of arteriovenous sh unting -The MCA's fill physiologically througho ut their territory there is no noted stenosis, occlusion or vasospas m noted within its branches. There are no noted aneurysms. There is n o evidence of arteriovenous shunting. The capillary phase is normal without ar eas of malperfusion, the venous phase demonstrates a normal venou s draining pattern Right Vertebral Artery (Rajiv/Transfaci al, Lateral) -The cervical course of the right verteb ral artery has a normal course and appearance. Muscular branches arising from the distal segments are visualized. There is no art eriovenous shunting nor vascular malformations. -The vertebral artery terminates in the posterior inferior cerebellar artery, proximal to the vertebrobasilar junction. - A large posterior meningeal artery is seen. The capillary phase is normal and a normal venous drainage keren darwin is noted. Left Vertebral Artery (Rajiv/Transfacia l, Lateral) -The cervical course of the left vertebr al artery has a normal course and appearance. Muscular branches arisin g from the distal segments are visualized. There is no arteriovenou s shunting nor vascular malformations. -There is no cross-filling into the righ t vertebral artery retrograde. -There is no stenosis or ulceration note d in the vertebral or basilar arteries. PICA, AICA, and superior cereb ellar arteries are visualized no evidence of aneurysms at their origin s. The bullet assembly press setter operator are not well seen, indicating bilateral configu ration. There is no evidence of stenosis or vasospasm. -There is not reflux into the posterior communicating artery. -The capillary phase is normal and in no rmal venous drainage pattern is noted Summary of Findings 1. No intracranial aneurysms or vascular lesions identified. No evidence of significant vasospasm in the intracranial vasculature. 2. No clinical or radiographic evidence of applications. Signed: Jose Coffman MD Report Verified Date/Time: 02/07/2020 1 0:52:17 Reading Location: [facility] [address] [place] [address] Reading Room Performing Organization Address City/State/Zipcode Phone Number [facility] 2D Echo W/Doppler(CW/PW/Color) (02/06/2020 10:59 AM CDT) Pathologist Sig nature Ejection Fraction [facility] Specimen Narrative Performed At Transthoracic Echocardiography Report (T TE) [facility] Demographics Patient Name JAMES PURI Date of Study 02/06/2020 GENE Gender Male Visit Number [id number] Race Unknown Room Number 7516 Number Date of 1935 Referring DANI Bean Physician PRADIP AO Age 84 year(s) Outsole Handler Gio Burnett [facility] Gasoline Testerpradeep Alba, Interpreting Felipe Cannon MD [facility] Physician Procedure Type of Study TTE procedure:2DECHO W DOPPLER(CW/PW/COLOR) (Routine) Indications:Unexplained Dyspnea. Clinical History Hyperlipidemia Hypertension HGB 17.3 HCT 51.9 % Contrast Medium: Definity. Amount - 2 ml Height: 71 inches Weight: 68.04 kg (150 lbs) BSA: 1.87 m^2 BMI: 20.92 kg/m^2 HR: 70 bpm BP: 128/67 mmHg Summary The left ventricle is chamber size (by vol index) is normal (male - LVED vol - 34-74ml/m2). All of the LV segments contract normally . Global LV systolic function normal . Estimated LVEF by qualitative assessment is normal (>60%) . LV diastolic function is indeterminate. Estimated peak systolic PA pressure is 40-45 mmHg (mild pulmonary hypertension) . Previous Study No prior studies available for comparis on. Signature Findings Technical Quality: Technically adequate exam. Left Ventricle LV endocardium is adequately visualized with IV ultrasound enhancing agent. The left ventricle is chamber size (by vol index) is normal (male - LVED vol - 34-74ml/m2). No evidence of LV hypertrop hy. All of the LV segments contract normally . Global LV systolic function normal . Estimated LVEF by qualitative assessment is normal (>60%) . LV diastolic function is indeterminate. Left Atrium LA size is normal (16-34 ml/m2) . Right Ventricle RV chamber size is normal . Global RV systolic function is low normal . Right Atrium RA size is normal. Aortic Valve Normal AoV structure and function. Mitral Valve Mild MV leaflet thickening. No evidence of mitral regurgitation. Tricuspid Valve TV structure is normal. Mild tricuspid regurgitation. Estimated peak systolic PA pressure is 40-45 mmHg (mild pulmonary hypertension) . Pulmonic Valve Normal PV structure and function by limited views and Doppler. Aorta Aortic root size (SInus of Valsalva diameter) is norm al . Pericardium No pericardial effusion is visualized. IVC/SVC/PA/PV/Pleural The estimated RA pressure by IVC dynamics 5-10mmHg . Chambers/Structures Left Atrium LA Volume: 57.84 ml LA Vol. Index: 31 ml/m^2 Left Ventricle LVIDd: 4.15 cm LVIDs: 2.47 cm LV Septum Diastolic: 0.87 cm LV PW Diastolic: 0.78 cm LV FS: 40.5 % LVEDV Vivas's:94.85 ml LVEDVI: 51 ml/m^2 LVOT Diameter: 2.04 cm Aorta Ao Root S of Deanne.: 3.1 cm Doppler/Quantitative Measurements Mitral Valve MV Peak E-Wave: 0.68 m/s MV Peak A-Wave: 0.55 m/s E/A Ratio: 1.24 Peak Gradient: 1.84 mmHg Deceleration Time: 188 msec MV Mark. Peak: Tissue Doppler E' Lateral Velocity: 0.1 m/s E/E': 7.08 Aortic Valve Peak Velocity: 0.98 m/s Mean Velocity: 0.62 m/s Peak Gradient: 3.8 mmHg Mean Gradient: 1.77 mmHg AV Area (continuity): 3.15 cm^2 AV VTI: 17.07 cm AV DVI: 0.96 LVOT Peak Velocity: 0.9 m/s Peak Gradient: 3.26 mmHg Mean Velocity: 0.52 m/s Mean Gradient: 1.34 mmHg LVOT Diameter: 2.04 cm LVOT VTI: 16.47 cm LVOT Area: 3.27 cm^2 LVOT SV:53.81 ml LVOT CO: 3.77 l/min LVOT CI: 2.02 l/min/m^2 Tricuspid Valve TR Velocity: 2.9 m/s TR Gradient: 33.58 mmHg Procedure Note Interface, External Ris In - 02/06/2020 3:28 PM CDT Transthoracic Echocardiography Report (TTE) Demographics Patient Name JAMES PURI Date of Study 02/06/2020 GENE Gender Male Visit Number [id number] Race Unknown Room [facility] 75 Number Date of 1935 Josselin Bean Physicia n GRETA Age 84 year(s) Sonograp her Gio Burnett [facility] Gasoline Tester Vickie AlbaEaston pancho Felipe aCnnon MD [facility] Physicia n Procedure Type of Study TTE procedure:2DECHO W DOPPLE R(CW/PW/COLOR) (Routine) Indications:Unexplained Dyspnea. Clinical History Hyperlipidemia Hypertension HGB 17.3 HCT 51.9 % Contrast Medium: Definity. Amount - 2 ml Height: 71 inches Weight: 68.04 kg (150 lbs) BSA: 1.87 m^2 BMI: 20.92 kg/m^2 HR: 70 bpm BP: 128/67 mmHg Summary The left ventricle is chamber size (by vol index) is normal (male - LVED vol - 34-74ml/m2). All of the LV segmen ts contract normally . Global LV systolic function normal . Estimated LV EF by qualitative assessment is normal (>60%) . LV diastolic function is indeterminate. Estimated peak systolic PA pressure is 40-45 mmHg (mild pulmonary hypertension) . Previous Study No prior studies available for comparis on. Signature Findings Technical Quality: Technically adequate exam. Left Ventricle LV endocardium i s adequately visualized with IV ultrasound enhan cing agent. The left ventricle is chamber size (by vol index) is normal (male - LVED vol - 34-74ml/m2 ). No evidence of LV hypertrophy. All of the LV se gments contract normally . Global LV systolic func tion normal . Estimated LVEF by qualitative asse ssment is normal (>60%) . LV diastolic functi on is indeterminate. Left Atrium LA size is hiral l (16-34 ml/m2) . Right Ventricle RV chamber size is normal . Global RV systol ic function is low normal . Right Atrium RA size is hiral l. Aortic Valve Normal AoV struc ture and function. Mitral Valve Mild MV leaflet thickening. No evidence of m itral regurgitation. Tricuspid Valve TV structure is normal. Mild tricuspid r egurgitation. Estimated peak s ystolic PA pressure is 40-45 mmHg (mild pulmonary hypertension) . Pulmonic Valve Normal PV struct ure and function by limited views and Doppler. Aorta Aortic root size (SInus of Valsalva diameter) is normal . Pericardium No pericardial e ffusion is visualized. IVC/SVC/PA/PV/Pleural The estimated RA pressure by IVC dynamics 5-10mmHg . Chambers/Structures Left Atrium LA Volume: 57.84 ml LA Vol. Index: 31 ml/m^2 Left Ventricle LVIDd: 4.15 cm LVIDs: 2.47 cm LV Septum Diastolic: 0.87 cm LV PW Diastolic: 0.78 cm LV FS: 40.5 % LVEDV Vivas's:94.85 ml LVEDVI: 51 ml/m^2 LVOT Diameter: 2.04 cm Aorta Ao Root S of Deanne.: 3.1 cm Doppler/Quantitative Measurements Mitral Valve MV Peak E-Wave: 0.68 m/s MV Peak A-Wave: 0.55 m/s E/A Ratio: 1.24 Peak Gradient: 1.84 mmHg Deceleration Time: 188 msec MV Mark. Peak: Tissue Doppler E' Lateral Velocity: 0.1 m/s E/E': 7.08 Aortic Valve Peak Velocity: 0.98 m/s Mean Velocity: 0.62 m/s Peak Gradient: 3.8 mmHg Mean Gradient: 1.77 mmHg AV Area (continuity): 3.15 cm^2 AV VTI: 17.07 cm AV DVI: 0.96 LVOT Peak Velocity: 0.9 m/s Pea k Gradient: 3.26 mmHg Mean Velocity: 0.52 m/s Bailey n Gradient: 1.34 mmHg LVOT Diameter: 2.04 cm LVO T VTI: 16.47 cm LVOT Area: 3.27 cm^2 LVO T SV:53.81 ml LVOT CO: 3.77 l/min LVO T CI: 2.02 l/min/m^2 Tricuspid Valve TR Velocity: 2.9 m/s TR Gradient: 33.58 mmHg Performing Organization Address City/State/Zipcode Phone Number [facility] ECHO HEART[facility] Mid line (02/03/2020 4:24 AM CDT) Narrative Performed At Yoli Gallagher NP 2019 5:27 AM Mid line Date/Time: 02/03/2020 4:24 AM Performed by: Yoli Gallagher N P Authorized by: Yoli Gallagher NP Patient identity confirmed: arm band, pr ovided demographic data and hospital-assigned identification number Indications: vascular access Anesthesia: local infiltration Anesthesia: Local Anesthetic: lidocaine 1% without e pinephrine Anesthetic total: 3 mL Sedation: Patient sedated: no Preparation: skin prepped with 2% chlorh exidine Location: R basilic vein. Patient position: flat Catheter type: double lumen Ultrasound guidance: yes Sterile ultrasound techniques: sterile gel and sterile probe covers were used Number of attempts: 2 Post-procedure: dressing applied Assessment: blood return through all por ts Immediate Post-Procedure Note Date/Time: 02/03/2020 4:25 AM Assistants to the procedure: None Pre-procedure diagnosis: CVA Post-procedure diagnosis: CVA Procedures Performed: Mid line Specimens removed: None Estimated blood loss (mL): None Complications: None Type of anesthesia: None Grafts or Implants: None Comments: Provena Midline double lumen c ut at 14cm LOT [id number] Exp 03/12/21 Hemoglobin and hematocrit (02/02/2020 7:42 PM CDT) Pathologist Sig nature Hemoglobin 17.6 (H) 13.7 - 17.5 GM/DL [facility] Hematocrit 52.2 (H) 40.1 - 51.0 % [facility] Specimen Blood Narrative Performed At Correctional Treatment Specialist ID - [id number] [facility] Performing Organization Address City/State/Zipcode Phone Number [facility] [address] [place] [address] CENTER EEG AWAKE/ASLEEP (02/02/2020 4:16 PM CDT) Specimen Narrative Performed At EEG report [facility] GE RIS DATE OF TEST: 02/02/20 DATE OF REPORT: 02/02/20 ACC: [id number] Start time: 1555 Stop time: 1616 ICD-10: R41.82 CPT: 89354 HISTORY: 84 y/o male with hx of HTN and HLD who was transferred here from OSH due to BL SAH. Per reports , patient had abdominal pain, neck pain, and transient headache on Sun day night associated with NV. Denies fever or focal deficit. No recent head trauma or fall. Pt started to have mild confusion and dizzi ness the next day. Pt was in OSH and found to have bilateral small SA H & transferred here for higher level of care. Pt complains of oc cipital headache. No history of seizures. MEDICATIONS: Lisinopril, Nimodipine, Que tiapine, Senna, NS TECHNICAL SUMMARY: This is a digital video EEG recorded wit h 32 input channels reviewed with bipolar and referential montages us ing the modified combinatorial system nomenclature. DESCRIPTION OF RECORD: During the maximally alert state, no pos terior dominant rhythm was seen. The background consisted of 1-2 Hz delta waveforms with superimposed spindle like waveforms. The EEG demonstrated state changes and reactivity. No stage II slee p structures were seen. HV: Hyperventilation was not performed. PHOTIC STIMULATION: Flash stimulation wa s done from 1-30 Hz; no photic driving was seen; photoparoxysmal responses were absent. IMPRESSION: Abnormal Lethargic EEG Continuous slow, generalized CLINICAL CORRELATION: This EEG is consis tent with a moderate encephalopathy. No areas of focal dysfun ction or epileptiform discharges were seen. An EEG without epi leptiform discharges does not exclude the possibility of epilepsy. I f the clinical suspicion of epilepsy remains, consider additional EE G recordings. José Miguel Youssef MD, MS Clinical Neurophysiology/Epilepsy Attend ing Procedure Note Interface, External Ris In - 02/02/2020 6:33 PM CDT EEG report [facility] DATE OF TEST: 02/02/20 DATE OF REPORT: 02/02/20 ACC: [id number] Start time: 1555 Stop time: 1616 ICD-10: R41.82 CPT: 58956 HISTORY: 84 y/o male with hx of HTN and HLD who was transferred here from OSH due to BL SAH. Per reports , patient had abdominal pain, neck pain, and transient headache on Sun day night associated with NV. Denies fever or focal deficit. No recent head trauma or fall. Pt started to have mild confusion and dizzi ness the next day. Pt was in OSH and found to have bilateral small SA H & transferred here for higher level of care. Pt complains of oc cipital headache. No history of seizures. MEDICATIONS: Lisinopril, Nimodipine, Que tiapine, Senna, NS TECHNICAL SUMMARY: This is a digital video EEG recorded wit h 32 input channels reviewed with bipolar and referential montages us ing the modified combinatorial system nomenclature. DESCRIPTION OF RECORD: During the maximally alert state, no pos terior dominant rhythm was seen. The background consisted of 1-2 Hz delta waveforms with superimposed spindle like waveforms. The EEG demonstrated state changes and reactivity. No stage II slee p structures were seen. HV: Hyperventilation was not performed. PHOTIC STIMULATION: Flash stimulation wa s done from 1-30 Hz; no photic driving was seen; photoparoxysmal responses were absent. IMPRESSION: Abnormal Lethargic EEG Continuous slow, generalized CLINICAL CORRELATION: This EEG is consis tent with a moderate encephalopathy. No areas of focal dysfun ction or epileptiform discharges were seen. An EEG without epi leptiform discharges does not exclude the possibility of epilepsy. If the clinical suspicion of epilepsy remains, consider additional EE G recordings. José Miguel Youssef MD, MS Clinical Neurophysiology/Epilepsy Attend ing Performing Organization Address City/State/Zipcode Phone Number [facility] XR abdomen / KUB 1 view (02/02/2020 2:46 PM CDT) Specimen Narrative Performed At FINAL REPORT [facility] TECHNIQUE: RAD, ABDOMEN/KUB, 1 VIEW AP INDICATION: corpak placement verificatio n COMPARISON: None. FINDINGS: Feeding tube tip terminates at the expec nimesh location of the gastric antrum. Bowel gas pattern is nonobstruct moris. Lung bases are clear.. IMPRESSION: Feeding tube tip terminates at the expec nimesh location of the gastric antrum. Signed: Olya Thornton MD Report Verified Date/Time: 02/02/2020 16:23:26 Reading Location: [facility] Reading Room Procedure Note Interface, External Ris In - 02/02/2020 4:25 PM CDT FINAL REPORT TECHNIQUE: RAD, ABDOMEN/KUB, 1 VIEW AP INDICATION: corpak placement verificatio n COMPARISON: None. FINDINGS: Feeding tube tip terminates at the expec nimesh location of the gastric antrum. Bowel gas pattern is nonobstruct moris. Lung bases are clear.. IMPRESSION: Feeding tube tip terminates at the expec nimesh location of the gastric antrum. Signed: Olya Thornton MD Report Verified Date/Time: 02/02/2020 1 6:23:26 Reading Location: [facility] Reading Room Performing Organization Address City/State/Zipcode Phone Number [facility] Fasting lipid panel (02/01/2020 4:49 AM CDT) Pathologist Sig nature Triglycerides 78Comment: Specimen mg/dL [facility] hemolyzed [facility] Cholesterol 142Comment: Specimen mg/dL [facility] slightly hemolyzed [facility] HDL 33 mg/dL [facility] LDL Calculated 93 mg/dL [facility] Specimen Blood Narrative Performed At Triglyceride Reference Range: [facility] Low Risk <150 Borderline 150-199 High Risk 200-499 Very High Risk >=500 Cholesterol Reference Range: Low Risk <200 Borderline 200-239 High Risk >240 HDL Cholesterol Reference Range: Low Risk >=60 High Risk <40 LDL Cholesterol Reference Range: Optimal <100 Near Optimal 100-129 Borderline 130-159 High 160-189 Very High >=190 Correction[facility] Treatment Specialist ID - [id number] Once on admission and Daily AM afterward s Once on admission and Daily AM afterwards Performing Organization Address City/State/Zipcode Phone Number [facility] [address] [place] [address] CENTER CTA carotid (01/31/2020 4:13 PM CDT) Specimen Narrative Performed At FINAL REPORT [email or web address] CLINICAL HISTORY: Neuro deficit, acute, stroke suspected TECHNIQUE: Initially, noncontrast head C T images were performed. Contiguous contrast-enhanced axial image s through the neck followed by axial images through the head with co abbie and sagittal reformations to assess the arterial circ ulation. 3-D reconstructions were performed using a volume rendered t echnique separately on a workstation. This exam was performed according to the departmental dose optimization program which includes auto mated exposure control, adjustment of the mA and/or kV according to the patient size, and/or use of an iterative reconstruction techn ique. Stenosis evaluation reported in complian ce with NASCET criteria. COMPARISON: None FINDINGS: CTA head: Please note that CTA is inherently insen sitive in evaluating the cavernous and skullbase portions of the internal carotid arteries because of adjacent bone and venous opac ification. There is a thin subdural hematoma along the falx. Diffuse scattered subarachnoid hemorrhage within the basal cisterns and bilateral hemispheric sulci. There is intraventric ular extension with blood layering in the bilateral occipital horn s as well as within the fourth ventricle. There is no hydrocepha tanner or midline shift. No CT evidence of acute territorial infarct. G eneralized cerebral atrophy with ex vacuo dilatation of the ventricu lar system proportionate to sulci. Scattered foci of hypoattenuation within the periventricular and subcortical white matter are a nonsp ecific finding commonly attributed to chronic small vessel ische romelia disease. The skull is intact. No major branch vessel occlusion or high -grade focal stenosis. There is no evidence of intracranial ane urysm. The major intradural venous sinuses are patent. CTA neck: Great vessel origins: No occlusion or hi gh-grade stenosis. 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 No occlusion or high-grade stenosis. Vertebral arteries: No occlusion or high -grade stenosis. No fracture or suspicious osseous lesion . Cervical soft tissues are unremarkable. Mild scarring of the lung apices, with a calcified granuloma on the right. IMPRESSION: 1.Diffuse subarachnoid hemorrhage fillin g the basal cisterns and bilateral hemispheric sulci. 2.Intraventricular extension in the late ral and fourth ventricles. No hydrocephalus. 3.Thin subdural hematoma along the poste rior falx. 4.No CT evidence of acute territorial in farct. 5.No proximal branch arterial occlusion or high-grade focal stenosis. 6.No evidence of aneurysm. Signed: Adele Guadalupe MD Report Verified Date/Time: 01/31/2020 16:54:44 Procedure Note Interface, External Ris In - 01/31/2020 4:56 PM CDT FINAL REPORT CLINICAL HISTORY: Neuro deficit, acute, stroke suspected TECHNIQUE: Initially, noncontrast head C T images were performed. Contiguous contrast-enhanced axial image s through the neck followed by axial images through the head with co abbie and sagittal reformations to assess the arterial circ ulation. 3-D reconstructions were performed using a volume rendered t echnique separately on a workstation. This exam was performed according to the departmental dose optimization program which includes auto mated exposure control, adjustment of the mA and/or kV according to the patient size, and/or use of an iterative reconstruction techn ique. Stenosis evaluation reported in complian ce with NASCET criteria. COMPARISON: None FINDINGS: CTA head: Please note that CTA is inherently insen sitive in evaluating the cavernous and skullbase portions of the internal carotid arteries because of adjacent bone and venous opac ification. There is a thin subdural hematoma along the falx. Diffuse scattered subarachnoid hemorrhage within the basal cisterns and bilateral hemispheric sulci. There is intraventric ular extension with blood layering in the bilateral occipital horn s as well as within the fourth ventricle. There is no hydrocepha tanner or midline shift. No CT evidence of acute territorial infarct. G eneralized cerebral atrophy with ex vacuo dilatation of the ventricu lar system proportionate to sulci. Scattered foci of hypoattenuation within the periventricular and subcortical white matter are a nonsp ecific finding commonly attributed to chronic small vessel ische romelia disease. The skull is intact. No major branch vessel occlusion or high -grade focal stenosis. There is no evidence of intracranial ane urysm. The major intradural venous sinuses are patent. CTA neck: Great vessel origins: No occlusion or hi gh-grade stenosis. 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 No occlusion or high-grade stenosis. Vertebral arteries: No occlusion or high -grade stenosis. No fracture or suspicious osseous lesion . Cervical soft tissues are unremarkable. Mild scarring of the lung apices, with a calcified granuloma on the right. IMPRESSION: 1.Diffuse subarachnoid hemorrhage fillin g the basal cisterns and bilateral hemispheric sulci. 2.Intraventricular extension in the late ral and fourth ventricles. No hydrocephalus. 3.Thin subdural hematoma along the poste rior falx. 4.No CT evidence of acute territorial in farct. 5.No proximal branch arterial occlusion or high-grade focal stenosis. 6.No evidence of aneurysm. Signed: Adele Guadalupe MD Report Verified Date/Time: 01/31/2020 1 6:54:44 Performing Organization Address City/State/Zipcode Phone Number [facility] CTA brain (01/31/2020 4:13 PM CDT) Specimen Narrative Performed At FINAL REPORT [facility] CLINICAL HISTORY: Neuro deficit, acute, stroke suspected TECHNIQUE: Initially, noncontrast head C T images were performed. Contiguous contrast-enhanced axial image s through the neck followed by axial images through the head with co abbie and sagittal reformations to assess the arterial circ ulation. 3-D reconstructions were performed using a volume rendered t echnique separately on a workstation. This exam was performed according to the departmental dose optimization program which includes auto mated exposure control, adjustment of the mA and/or kV according to the patient size, and/or use of an iterative reconstruction techn ique. Stenosis evaluation reported in complian ce with NASCET criteria. COMPARISON: None FINDINGS: CTA head: Please note that CTA is inherently insen sitive in evaluating the cavernous and skullbase portions of the internal carotid arteries because of adjacent bone and venous opac ification. There is a thin subdural hematoma along the falx. Diffuse scattered subarachnoid hemorrhage within the basal cisterns and bilateral hemispheric sulci. There is intraventric ular extension with blood layering in the bilateral occipital horn s as well as within the fourth ventricle. There is no hydrocepha tanner or midline shift. No CT evidence of acute territorial infarct. G eneralized cerebral atrophy with ex vacuo dilatation of the ventricu lar system proportionate to sulci. Scattered foci of hypoattenuation within the periventricular and subcortical white matter are a nonsp ecific finding commonly attributed to chronic small vessel ische romelia disease. The skull is intact. No major branch vessel occlusion or high -grade focal stenosis. There is no evidence of intracranial ane urysm. The major intradural venous sinuses are patent. CTA neck: Great vessel origins: No occlusion or hi gh-grade stenosis. 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 No occlusion or high-grade stenosis. Vertebral arteries: No occlusion or high -grade stenosis. No fracture or suspicious osseous lesion . Cervical soft tissues are unremarkable. Mild scarring of the lung apices, with a calcified granuloma on the right. IMPRESSION: 1.Diffuse subarachnoid hemorrhage fillin g the basal cisterns and bilateral hemispheric sulci. 2.Intraventricular extension in the late ral and fourth ventricles. No hydrocephalus. 3.Thin subdural hematoma along the poste rior falx. 4.No CT evidence of acute territorial in farct. 5.No proximal branch arterial occlusion or high-grade focal stenosis. 6.No evidence of aneurysm. Signed: Adele Guadalupe MD Report Verified Date/Time: 01/31/2020 16:54:44 Procedure Note Interface, External Ris In - 01/31/2020 4:56 PM CDT FINAL REPORT CLINICAL HISTORY: Neuro deficit, acute, stroke suspected TECHNIQUE: Initially, noncontrast head C T images were performed. Contiguous contrast-enhanced axial image s through the neck followed by axial images through the head with co abbie and sagittal reformations to assess the arterial circ ulation. 3-D reconstructions were performed using a volume rendered t echnique separately on a workstation. This exam was performed according to the departmental dose optimization program which includes auto mated exposure control, adjustment of the mA and/or kV according to the patient size, and/or use of an iterative reconstruction techn ique. Stenosis evaluation reported in complian ce with NASCET criteria. COMPARISON: None FINDINGS: CTA head: Please note that CTA is inherently insen sitive in evaluating the cavernous and skullbase portions of the internal carotid arteries because of adjacent bone and venous opac ification. There is a thin subdural hematoma along the falx. Diffuse scattered subarachnoid hemorrhage within the basal cisterns and bilateral hemispheric sulci. There is intraventric ular extension with blood layering in the bilateral occipital horn s as well as within the fourth ventricle. There is no hydrocepha tanner or midline shift. No CT evidence of acute territorial infarct. G eneralized cerebral atrophy with ex vacuo dilatation of the ventricu lar system proportionate to sulci. Scattered foci of hypoattenuation within the periventricular and subcortical white matter are a nonsp ecific finding commonly attributed to chronic small vessel ische romelia disease. The skull is intact. No major branch vessel occlusion or high -grade focal stenosis. There is no evidence of intracranial ane urysm. The major intradural venous sinuses are patent. CTA neck: Great vessel origins: No occlusion or hi gh-grade stenosis. 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 No occlusion or high-grade stenosis. Vertebral arteries: No occlusion or high -grade stenosis. No fracture or suspicious osseous lesion . Cervical soft tissues are unremarkable. Mild scarring of the lung apices, with a calcified granuloma on the right. IMPRESSION: 1.Diffuse subarachnoid hemorrhage fillin g the basal cisterns and bilateral hemispheric sulci. 2.Intraventricular extension in the late ral and fourth ventricles. No hydrocephalus. 3.Thin subdural hematoma along the poste rior falx. 4.No CT evidence of acute territorial in farct. 5.No proximal branch arterial occlusion or high-grade focal stenosis. 6.No evidence of aneurysm. Signed: Adele Guadalupe MD Report Verified Date/Time: 01/31/2020 1 6:54:44 Performing Organization Address City/State/Zipcode Phone Number GE RIS after 04/08/2019 Insurance Payer Benefit Plan Subscriber ID Effective Phone Address Typ e / Group Dates [employer]ET[employer] - [employer]ET[employer] [id number] 2019-Pres [phone] [address] [employer] MEDICARE MGD MEDICARE HMO ent [id number] [place] [address] Advance Directives For more information, please contact: [phone] Code Status Date Activated Date Inactivated Comments DNAR 02/29/2020 8:34 AM 03/14/2020 6:29 PM This code status was determined by: Child Has the consent form been signed? Yes Have you Written ACP Note: No Full Code 02/27/2020 9:58 AM 02/29/2020 8:34 AM This code status was determined by: Patient Full Code 01/31/2020 2:36 PM 02/27/2020 9:58 AM This code status was determined by: Patient
--- OUTSIDE RECORDS SUMMARY | 2020-04-08 14:20 | XMS REPORT | Summary of Care ---
:[address] [facility] - Health Address [address] [place] [id number] Care Team Providers Name Role Phone Pcp, Patient Does Not Have A Primary Care Provider +[id number] Reason for Referral MRI/CAT Scan (STAT) Status Reason Specialty Diagnoses / Referred By Referred To Procedures Contact Contact New Request Diagnostic Diagnoses Pneumonia of both lower lobes due to infectious organism Galen Espinal MD Radiology Procedures CT CHEST PULMONARY ANGIOGRAM CT ANGIOGRAM CHEST [address] [place] [address] Radiology Services (STAT) Status Reason Specialty Diagnoses / Referred By Referred To Procedures Contact Contact New Request Diagnostic Diagnoses Fever, unspecified fever cause Nino Calderon, Radiology Procedures XR CHEST 1 VW DO [address] [place] [address]. RT [address] [place] [id number] Reason for Visit Reason Comments Auth/Cert Status Reason Specialty Diagnoses / Referred By Referred To Procedures Contact Contact Emergency Medicine [facility]ency Dept [address] [place] [address] Fax: Encounter Details Date Type Department Care Team Description 03/16/2020 - Hospital Encounter ADC Medicine Surgery Nino Calderon, DO [address] [facility]. RT [address] [place] [id number] Pneumonia 03/21/2020 Unit Galen Espinal MD [address] [place] [phone] [address] [place] [address] [place] [address] Allergies No Known Allergiesdocumented as of this encounter (statuses as of 03/21/2020) Medications Medication Sig Dispensed Refills Start Date End Date Status baclofen (LIORESAL) 5 mg 3 0 Active 5 mg/mL suspension (three) times daily. apixaban (ELIQUIS) 5 Take 5 mg by 0 Active mg tablet mouth 2 (two) times daily. acetaminophen Take 325 mg 0 Acti ve (TYLENOL) 325 mg through tablet enteral tube every 4 (four) hours as needed. amoxicillin-pot Take 10 mL 270 mL 0 03/21/2020 03/30/2020 A ctive clavulanate 250-62.5 through mg/5 mL enteral tube suspensionIndication 3 (three) s: Fever, times daily unspecified fever for 9 days. cause lactobacillus Take 1 tablet 30 tablet 0 03/21/2020 03/31/2020 Active acidophilus 25 by mouth 3 million cell -100 mg (three) times captabIndications: daily for 10 Fever, unspecified days. fever cause modafiniL 200 mg Take 200 mg 0 03/21/2020 Discontinued tablet by mouth. levoFLOXacin Take 500 mg 0 03/21/2020 Disc ontinued (LEVAQUIN) 500 mg by mouth tablet every 24 (twenty-four) hours. documented as of this encounter (statuses as of 03/21/2020) Active Problems Problem Noted Date Pneumonia 03/16/2020 documented as of this encounter (statuses as of 03/21/2020) Social History Tobacco Use Types Packs/Day Years Used Date Never Smoker Smokeless Tobacco: Never Used Alcohol Use Drinks/Week oz/Week Comments Not Currently Sex Assigned at Date Recorded Not on file COVID-19 Exposure Response Date Recorded In the last month, have you been in contact Unable to assess 03/16/2020 8:35 AM [employer] with someone who was confirmed or suspected to have Coronavirus / COVID-19? documented as of this encounter Last Filed Vital Signs Vital Sign Reading Time Taken Comments Blood Pressure 133/57 03/21/2020 11:03 AM [employer] Pulse 84 03/21/2020 11:03 AM [employer] Temperature 36.3 C (97.4 F) 03/21/2020 11:03 AM [employer] Respiratory Rate 18 03/21/2020 11:03 AM [employer] Oxygen Saturation 95% 03/21/2020 11:03 AM room air. [employer] Inhaled Oxygen Concentration - - Weight 68 kg (150 lb) 03/16/2020 11:35 AM [employer] Height 180.3 cm (5' 11") 03/19/2020 8:00 AM per pt's w gayla [employer] Body Mass Index 20.92 03/16/2020 11:35 AM [employer] documented in this encounter Discharge Instructions Saloni Apodaca RN - 03/21/2020 Patient Discharge Instructions Discharge date: 03/21/2020 Procedure(s): Discharge Orders Full Liquid Diet; Continue PEG tube feedings, Glucerna 1.2 Order Comments: Continue PEG tube feedings, Glucerna 1.2 Discharge Condition - Discharge Condition: FAIR Discharge Activity Discharge Activity: As Tolerated Discharge Instructions Order Comments: Discharged to home health hospice. VTE Propylaxis- Was ordered during hospitalization Follow instructions as indicated below: 1. The medication that was used will be acting in your system for the next 24 hours, so you might feel a little drowsy, with impaired judgment and or motor function. This feeling should go wear off. Because the medication is still in your system for the next 24 hours you SHOULD NOT: Drive a car, operate machinery or power tool. Drink any alcohol beverages (including beer or wine). Make any important decisions or sign any legal documents. 2. You should rest the remainder of the day and not engage in any physical activity. Move slowly today. After lying down, sit on the edge of the bed for a moment before standing. YOU ARE RESPONSIBLEFOR HAVING SOMEONE AT HOME WITH YOU DURING THE AFTERNOON AND NIGHT IMMEDIATELY FOLLOWING YOUR SURGERY. Patient should cough and deep breathe every 2-4 hours while awake to avoid respiratory complications. 4. Lifting: {IP DISCHARGE INSTRUCTIONS LIFTIN::"No medical restrictions"} 5. Weight: In general, sudden weight gains or losses should be reported to your provider. Cardiac patients should weigh daily and notify their provider for a weight gain of 3 pounds per day or 5 pounds per week. 6. Tobacco Avoidance: Follow recommendations below 7. Because the medications used could procedure some residual nausea and vomiting after you go home,you should eat lightly today, starting with clear liquids (broth, soft drinks, apple juice, jello) and toast or crackers, progressing to bland solid foods and then to your normal diet as tolerated, unle ss otherwise stated by your surgeon. If you get sick, wait a couple of hours and then begin to eat. After 24 hours the nausea should be gone. 8. You may experience some pain and your physician will advise you on what to take for discomfort. This should be taken as directed. If the pain is not relieved, contact your physician. You may alsohave a sore throat from the airway that was in place. You may uses lozenges, throat spray (such as C hloraseptic), or warm salt water gargles for symptomatic relief. 9. If you feel warm, take your temperature. If it is 101 degrees or above call your physician. 10. If you are unable to urinate within five hours after your procedure, call your physician. 11. The type of surgery performed will determine how much bleeding (if any) to expect. Normally, some spotting might occur. If your dressing pad becomes saturated, notify your physician. Elevate surgical site, if applicable, to reduced swelling and pain. 12. Wound/dressing care: Tips on preventing a surgical site infection.. Dont smoke. It is best to quit at least 30 days before surgery, but quitting after surgery is also helpful. If you are diabetic, keep your blood sugar well controlled. WASH YOUR HANDS. Keep your wound clean and remember to wash your hands before and after contact with the area. All health care workers should also wash their hands or use an alcohol based hand rub prior to examining you. If antibiotics are prescribed, take them as directed. Finish the entire course of antibiotics. Call your doctor if you have signs of infection: ? Increased tenderness at the surgical site ? Red streaks or increased redness of the area ? Bad-smelling discharge from the incision ? Fever of 101F or higher ? General tired feeling that doesnt improve 13. Other discharge instructions: {DC IP DISCHARGE INSTRUCTIONS OTHER:00707} 14. Special Instructions: Take Home Medications These are medications ordered for you by your healthcare provider. Do not take any other medications or supplements unless advised by your healthcare provider. Current Discharge Medication List START taking these medications Details amoxicillin-pot clavulanate 250-62.5 mg/5 mL suspension Take 10 mL through enteral tube 3 (three) times daily for 9 days. Qty: 270 mL, Refills: 0 Associated Diagnoses: Fever, unspecified fever cause lactobacillus acidophilus 25 million cell -100 mg captab Take 1 tablet by mouth 3 (three) times daily for 10 days. Qty: 30 tablet, Refills: 0 Associated Diagnoses: Fever, unspecified fever cause CONTINUE these medications which have NOT CHANGED Details acetaminophen (TYLENOL) 325 mg tablet Take 325 mg through enteral tube every 4 (four) hours as needed. apixaban (ELIQUIS) 5 mg tablet Take 5 mg by mouth 2 (two) times daily. baclofen (LIORESAL) 5 mg/mL suspension 5 mg 3 (three) times daily. STOP taking these medications levoFLOXacin (LEVAQUIN) 500 mg tablet Comments: Reason for Stopping: modafiniL 200 mg tablet Comments: Reason for Stopping: Follow-up appointments: Your follow up appointment with your surgeon has been made. Appointment Date: , Appointment Time . For questions regarding follow-up instructions call the [facility] Hotline at or If you experience any of the following symptoms , please follow up with . For worsening symptoms/changing condition/problems or questions: Non-emergency/urgent: Call the [facility] Hotline at or or Emergency: Go to the closest emergency room or call 575 Translated by Date Time If you receive the patient satisfaction survey by mail please complete and return and let us know how we are doing. TOBACCO AVOIDANCE Exposure to tobacco either from smoking or from second hand (environmental) smoke or smokeless tobacco (snuff) is damaging to your health. This information is to encourage everyone to avoid tobacco exposure. It is recommended that you: ? If you smoke or use smokeless tobacco, we encourage you to quit. ? If you have already quit smoking, continue your good work! ? If you do not smoke or use smokeless tobacco, do not start. ? Avoid secondhand smoke. Additional Resources You may want to contact these organizations for further information on smoking and how to quit. [place] [employer], http://www.lungusa.org/stop-smoking/ [place] [employer], http://www.cancer.org/Healthy/StayAwayfromTobacco/index [place] [employer], http://www.heart.org/HEARTORG/GettingHealthy/QuitSmoking/Quit-Smoking_[facility] _001085_SubHomePage.jsp AttachmentsThe following attachments cannot be sent through Care Everywhere. Adult, Pneumonia (Iraqi)Amoxicillin; Clavulanic Acid oral suspension ([place]) Lactobacillus Oral formulations ([place]raqi)documented in this encounter Progress Notes Anali Ricci, OLGA - 03/21/2020 12:49 PM [employer] Care Management Discharge Disposition Note (DCDN) Interventions: Disease specific education;Intensive medication reconciliation/management;Appropriate palliative care referral;Clear discharge plan Providers: Physician;Legal Support Assistant/Wet Machine Operator;Nurse 08-12- Patient Capacity Improvements: Avoidance of adverse events/readmission;Transportation arrangements Discharge Plan for ongoing care and services: Hospice Patient Choice completed for referred services: Yes Discussed with patient/patients family involved in decision making: Patient or family caregiver understands, and agrees with discharge plan Patient's family or support contact: Discharge Plan: Hospice Receiving facility was provided the following clinical documentation at discharge- CM Facesheet, Consult notes, Labs, Progress Notes, MAR: DME location: Other DME location: Durable Medical Equipment: Home Health location: Discharge location(s): Hospice location: [facility], [address] [place] [address] () [phone] (F) [phone] Community resources/referrals made or provided to patient: No Resources/Referrals: Mental Status: Alert & Oriented to Person Psychosocial issues and/or concerns resulting in patient being a high risk for re-admission: Manage ADL indepentdly: No Living Arrangement: Home Other living arrangement: Address of living arrangement: [address] [place] [phone] Funding Resources: Medicare Replacement Has patient been referred to [facility]? Nursing informed of discharge plan: No CHP referral sent? No CM medication request completed (if appropriate): No PCP: Yes Transportation: Ambulance Prior authorization obtained for ambulance: Authorization number: CPT code: Discharge Medications Will the patient be able to obtain his medications? Yes Does the patient have transportation to to obtain the prescription medications? Yes CM Medication Request completed (if appropriate): Yes Name of RN informed: Saloni Marin RN Expected discharge date: 03/21/2020 Time: Midday [20] Additional Information: CM/SW Name & Contact number: RAFFAELE Silva Ph. [phone] The following information has been provided to the facility noted above: reason for the patient discharge or transfer; patients physical and psychosocial status; summary of care, treatment, servicesprovided to patient; and the patient progress toward goals. hKimberly edouard FNP - 03/20/2020 2:55 PM CST [facility] Hospitalist Progress Note SUBJECTIVE: Patient seen at bedside with , and nurse from hospice. Patient with a lot of question CURRENT MEDICATIONS - reviewed. Current Facility-Administered Medications Medication Dose Route Frequency Last Rate Last Admin amoxicillin-pot clavulanate (AUGMENTIN 250) 250-62.5 mg/5 mL suspension 500 mg 500 mg Enteral TID ipratropium-albuteroL (DUONEB) 0.5 mg-3 mg(2.5 mg base)/3 mL nebulizer solution 3 mL 3 mL Inhalation Q6HPRN lactobacillus acidophilus (ACIDOPHILLUS) 25 million cell -100 mg captab 1 tablet 1 tablet Oral TID 1 tablet at 03/20/20 1043 acetaminophen (TYLENOL) tablet 650 mg 650 mg Oral Q6HPRN 650 mg at 03/16/20 2146 apixaban (ELIQUIS) tablet 5 mg 5 mg Enteral BID 5 mg at 03/20/20 1043 ondansetron (ZOFRAN (PF)) injection 4 mg 4 mg Slow IV Push Q6HPRN PHYSICAL EXAM: BP 130/71 | Pulse 89 | Temp 36.6 C (97.9 F) (Tympanic) | Resp 20 | Ht 1.803 m (5' 11") | Wt68 kg (150 lb) | SpO2 100% | BMI 20.92 kg/m General: no distress HEENT: Anicteric sclerae, NCAT Lungs: Bilateral Rhonchi Cardio: RRR, strong symmetric pulses Abdomen: peg tube present Genitourinary: No lesions Musculoskeletal: Normal muscle mass, no synovitis Skin: No rash or lesions, normal turgot Neuro: A/O, more responsive but still aphagic Psych: Normal affect LABS/IMAGING - reviewed, pertinent results as below: CBC BMP PT/INR WBC (10*3/L) Date Value 03/20/2020 14.15 (H) NA (mmol/L) Date Value 03/20/2020 135 No results found for: PT RBC (10*6/L) Date Value 03/20/2020 3.73 (L) K (mmol/L) Date Value 03/20/2020 4.5 No results found for: PTINR PLT (10*3/L) Date Value 03/20/2020 471 (H) CALCIUM (mg/dL) Date Value 03/20/2020 8.4 (L) HGB (g/dL) Date Value 03/20/2020 11.6 (L) CL (mmol/L) Date Value 03/20/2020 101 aPTT HCT (%) Date Value 03/20/2020 35.5 (L) BUN (mg/dL) Date Value 03/20/2020 19 No results found for: APTTPAT CREATININE (mg/dL) Date Value 03/20/2020 0.58 (L) IMAGING- Hospital Encounter on 03/16/20 CT CHEST PULMONARY ANGIOGRAM Narrative CT CHEST PULMONARY ANGIOGRAM HISTORY: 84 years-old; Male; PE suspected, intermediate prob, positive D-dimer COMPARISON: None. TECHNIQUE: Helical CT was performed after the administration of 100 mL iodinated intravenous contrast and reconstructed at 1.0 mm slice thickness from lung base to apices. Display field of view: 40 cm. IMAGE QUALITY: Evaluation of the study is mildly limited due to motion artifact. FINDINGS: PULMONARY ARTERIES: Contrast bolus timing is excellent for evaluation of pulmonary arterial vasculature. There is no acute or chronic pulmonary embolism to the proximal to mid segmental level. Normal caliber of main pulmonary artery. CHEST: Lower neck/thyroid: Unremarkable. Lungs: Mild groundglass opacities with tree-in-bud nodularity are noted in the posterior left upper lobe and superior portions of left upper lobe (for example 11:53). Few additional nodular densities are scattered throughout the lung bases. Subcentimeter calcified granuloma within the right upper lobe. Bibasilar subsegmental and dependent atelectasis. Evidence of mucus plugging within the left lower lobe resulting in subsegmental atelectasis and air bronchograms. Solid nodule in the left lower lobe measures 7 mm (11:29). Central airway: Central airways are patent. Pleura: No pleural effusion, thickening or pneumothorax. Thoracic aorta and great vessels: The normal three vessel branching pattern is identified off of the aortic arch. The aorta is normal in diameter. Moderate atherosclerotic disease affects the aorta and its primary branches. Pulmonary arteries: Normal in caliber. Heart and pericardium: Mild to moderate coronary arterial calcifications most prominent within the LAD distribution. No pericardial effusion. Mediastinum and lymph nodes: No enlarged thoracic lymph nodes. Thoracic spine and chest wall: Unremarkable, with normal thoracic vertebral body heights. 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 Visualized upper abdomen: Right anterior liver lobe hepatic cyst measuring 3.5 cm in diameter (11:96). Low attenuated left renal cortical cystic structure measures 5.0 cm in diameter with central density higher than simple fluid, technically indeterminate but likely representing a hemorrhagic or proteinaceous cyst. Impression No acute pulmonary embolism through the proximal to mid segmental level. Scattered areas of groundglass opacities and tree-in-bud nodularity in the left upper and lower lobes concerning for infection. Few additional groundglass opacity is seen elsewhere in the lung bases. Follow to resolution. Bilateral dependent and subsegmental atelectasis with prominent mucus plugging in the left lower lobe. More specifically, the segmental and subsegmental bronchi supplying the left lower lobe appear filled with hyperattenuating material and/or mucous. Attention on follow-up. Consider bronchoscopy if clinically indicated to exclude possibility of underlying mass. Right liver lobe hepatic cyst measuring 3.5 cm in diameter. Partially visualized left renal cyst measuring 5.0 cm with central density higher than simple fluid, technically indeterminate. If clinically concerned, a nonemergent abdominopelvic CT/MRI with renal mass protocol may be obtained for further evaluation. Preliminary Report Dictated by Resident: Zully Polanco I, Hilton Carbajal MD., have reviewed this study and agree with the above report. XR CHEST 1 VW Narrative PROCEDURE: XR CHEST 1 VW CLINICAL INDICATION: sepsis TECHNIQUE: Frontal chest radiographs were obtained. COMPARISON: None FINDINGS: Linear airspace disease within the left lower lobe probably represents atelectasis. Additional streaky opacities are seen within the right lung base. No pleural effusion or pneumothorax is seen. The heart is normal in size. Aortic arch calcifications are noted. No acute bony abnormality is noted. Impression Bibasilar airspace opacities, probably atelectasis. However, although less likely, these may represent infectious process in appropriate clinical setting. Preliminary Report Dictated by Resident: Britney Oden I, Hilton Carbajal MD., have reviewed this study and agree with the above report. ASSESSMENT/PLAN Anam Baker is a 84 year old male with PMH as listed above, admitted to the hospital with: # Sepsis with respiratory failure, mildly elevated LFTs # HCAP, aspiration PNA # Acute respiratory failure with hypoxia CTA showed mucus plugging Failed treatment patient taking Levaquin via peg Stopped abx with vanco, zosyn, and levaquin then narrowed to zosyn day 4 Started Augmentin 500 mg tid for 10 days, Day 1 BC x 2 negative so far Lactic acidnormal, procalcitonin0.57 Duonebs prn Vest therapy qid O2 per protocol to keep oxygen sats > 92%, currently on 4L/min Consulted ID Dr Valles Consultedpulmonology. Appreciate pulmonology inputs Patient is taking patient home with home hospice likely tomorrow #Hx stroke, SAH, aphasia, dysphagia, dementia, bed bound condition Continue Eliquis Patient dysphagicPEG tube in place. Continue Glucerna 1.2 60 mL's per hour with a flush of 125 ML's every 4 hours Consult nutrition for guidance # h/o HTN - now BP low normal. Hold HTN medication # h/o DVT - on Eliquis Prophylaxis: DVT- Eliquis Stress Ulcer: no indication for prophylaxis Code Status: addressed: DNR Disposition: home with hospice awaiting acceptance [place] SENIOR PRINCIPAL was viewed during this stay [employer]ID [employer] Associated attestation - Brendon Ball MD - 03/20/2020 3:41 PM CSTI have independently seen and evaluated this patient. I agree with the note below including physicalexam and plan. In summary, patient is admitted for acute hypoxic respiratory failure 2/2 aspiration in pneumonia with hx of stroke s/p PEG tube. Tolerating continuous TFs. Switch to enteral Augmentin today. Poor prognosis with advanced dementia, bed-ridden, aphasic due to stroke. Noted to have stage 3coccyx decubitus ulcer. Patient's wants to take him home with hospice. Likely discharge tomorrow once that's arranged. Rest of plan per below. Brendon Ball MD - 03/19/2020 6:40 PM CST [facility] Hospitalist Progress Note SUBJECTIVE: No acute events overnight. at bedside. No issues. Tolerating continuous TF. CURRENT MEDICATIONS - reviewed. Current Facility-Administered Medications Medication Dose Route Frequency Last Rate Last Admin ipratropium-albuteroL (DUONEB) 0.5 mg-3 mg(2.5 mg base)/3 mL nebulizer solution 3 mL 3 mL Inhalation Q6HPRN lactobacillus acidophilus (ACIDOPHILLUS) 25 million cell -100 mg captab 1 tablet 1 tablet Oral TID 1 tablet at 03/19/20 1259 acetaminophen (TYLENOL) tablet 650 mg 650 mg Oral Q6HPRN 650 mg at 03/16/20 2146 apixaban (ELIQUIS) tablet 5 mg 5 mg Enteral BID 5 mg at 03/19/20 0929 ondansetron (ZOFRAN (PF)) injection 4 mg 4 mg Slow IV Push Q6HPRN piperacillin-tazobactam (ZOSYN) 3.375 g in NaCl 0.9% (NS) 100 mL MINI-BAG 3.375 g IV Piggyback Q6H ABX 3.375 g at 03/19/20 1819 vancomycin (VANCOCIN) 1,000 mg in NaCl 0.9% (NS) 250 mL VIAL-MATE IV piggyback 1,000 mg IV Piggyback Q12H ABX 1,000 mg at 03/19/20 0929 PHYSICAL EXAM: BP 129/76 | Pulse 93 | Temp 36.8 C (98.2 F) | Resp 24 | Ht 5' 11" (1.803 m) | Wt 150 lb (68kg) | SpO2 92% | BMI 20.92 kg/m General: No respiratory distress HEENT: Anicteric sclerae, NCAT Lungs: Symmetric expansion, Bibasilar rhonchi Musculoskeletal: Normal muscle mass, no synovitis Skin: No rash or lesions Neuro: AAOx1, no focal deficits Psych: Normal affect LABS/IMAGING - reviewed, pertinent results as below: CBC BMP PT/INR WBC (10*3/L) Date Value 03/19/2020 12.44 (H) NA (mmol/L) Date Value 03/19/2020 136 No results found for: PT RBC (10*6/L) Date Value 03/19/2020 3.61 (L) K (mmol/L) Date Value 03/19/2020 4.1 No results found for: PTINR PLT (10*3/L) Date Value 03/19/2020 456 (H) CALCIUM (mg/dL) Date Value 03/19/2020 8.5 (L) HGB (g/dL) Date Value 03/19/2020 11.1 (L) CL (mmol/L) Date Value 03/19/2020 100 aPTT HCT (%) Date Value 03/19/2020 34.9 (L) BUN (mg/dL) Date Value 03/19/2020 19 No results found for: APTTPAT CREATININE (mg/dL) Date Value 03/19/2020 0.59 (L) IMAGING- Hospital Encounter on 03/16/20 CT CHEST PULMONARY ANGIOGRAM Narrative CT CHEST PULMONARY ANGIOGRAM HISTORY: 84 years-old; Male; PE suspected, intermediate prob, positive D-dimer COMPARISON: None. TECHNIQUE: Helical CT was performed after the administration of 100 mL iodinated intravenous contrast and reconstructed at 1.0 mm slice thickness from lung base to apices. Display field of view: 40 cm. IMAGE QUALITY: Evaluation of the study is mildly limited due to motion artifact. FINDINGS: PULMONARY ARTERIES: Contrast bolus timing is excellent for evaluation of pulmonary arterial vasculature. There is no acute or chronic pulmonary embolism to the proximal to mid segmental level. Normal caliber of main pulmonary artery. CHEST: Lower neck/thyroid: Unremarkable. Lungs: Mild groundglass opacities with tree-in-bud nodularity are noted in the posterior left upper lobe and superior portions of left upper lobe (for example 11:53). Few additional nodular densities are scattered throughout the lung bases. Subcentimeter calcified granuloma within the right upper lobe. Bibasilar subsegmental and dependent atelectasis. Evidence of mucus plugging within the left lower lobe resulting in subsegmental atelectasis and air bronchograms. Solid nodule in the left lower lobe measures 7 mm (11:29). Central airway: Central airways are patent. Pleura: No pleural effusion, thickening or pneumothorax. Thoracic aorta and great vessels: The normal three vessel branching pattern is identified off of the aortic arch. The aorta is normal in diameter. Moderate atherosclerotic disease affects the aorta and its primary branches. Pulmonary arteries: Normal in caliber. Heart and pericardium: Mild to moderate coronary arterial calcifications most prominent within the LAD distribution. No pericardial effusion. Mediastinum and lymph nodes: No enlarged thoracic lymph nodes. Thoracic spine and chest wall: Unremarkable, with normal thoracic vertebral body heights. 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 Visualized upper abdomen: Right anterior liver lobe hepatic cyst measuring 3.5 cm in diameter (11:96). Low attenuated left renal cortical cystic structure measures 5.0 cm in diameter with central density higher than simple fluid, technically indeterminate but likely representing a hemorrhagic or proteinaceous cyst. Impression No acute pulmonary embolism through the proximal to mid segmental level. Scattered areas of groundglass opacities and tree-in-bud nodularity in the left upper and lower lobes concerning for infection. Few additional groundglass opacity is seen elsewhere in the lung bases. Follow to resolution. Bilateral dependent and subsegmental atelectasis with prominent mucus plugging in the left lower lobe. More specifically, the segmental and subsegmental bronchi supplying the left lower lobe appear filled with hyperattenuating material and/or mucous. Attention on follow-up. Consider bronchoscopy if clinically indicated to exclude possibility of underlying mass. Right liver lobe hepatic cyst measuring 3.5 cm in diameter. Partially visualized left renal cyst measuring 5.0 cm with central density higher than simple fluid, technically indeterminate. If clinically concerned, a nonemergent abdominopelvic CT/MRI with renal mass protocol may be obtained for further evaluation. Preliminary Report Dictated by Resident: Zully Polanco I, Hilton Carbajal MD., have reviewed this study and agree with the above report. XR CHEST 1 VW Narrative PROCEDURE: XR CHEST 1 VW CLINICAL INDICATION: sepsis TECHNIQUE: Frontal chest radiographs were obtained. COMPARISON: None FINDINGS: Linear airspace disease within the left lower lobe probably represents atelectasis. Additional streaky opacities are seen within the right lung base. No pleural effusion or pneumothorax is seen. The heart is normal in size. Aortic arch calcifications are noted. No acute bony abnormality is noted. Impression Bibasilar airspace opacities, probably atelectasis. However, although less likely, these may represent infectious process in appropriate clinical setting. Preliminary Report Dictated by Resident: Britney Oden I, Hilton Carbajal MD., have reviewed this study and agree with the above report. ASSESSMENT/PLAN Anam Baker is a 84 year old male with PMH as listed above, admitted to the hospital with: # Sepsis with respiratory failure, mildly elevated LFTs # HCAP, aspiration PNA # Acute respiratory failure with hypoxia CTA showed mucus plugging Failed treatment patient taking Levaquin via peg Broad spectrum abx with vanco, zosyn, and levaquin then narrowed to zosyn day 4 BC x 2 negative Lactic acidnormal, procalcitonin0.57 Duonebs prn Vest therapy qid O2 per protocol to keep oxygen sats > 92%, currently on 4L/min Consulted ID Dr Valles Consulted pulmonology. Appreciate pulmonology inputs #Hx stroke, SAH, aphasia, dysphagia, dementia, bed bound condition Continue Eliquis Patient dysphagicPEG tube in place. Continue Glucerna 1.2 60 mL's per hour with a flush of 125 ML's every 4 hours Consult nutrition for guidance # h/o HTN - now BP low normal. Hold HTN medication # h/o DVT - on Eliquis Code status: DNR Dispo: Home hospice per family VTE Prophylaxis: Eliquis Code Status: DNR per Brendon Ball MD Sid Durbin RN - 03/19/2020 2:13 PM CSTClinicals efaxed to [facility], awaiting acceptance. Sid Brody RN, BSN [facility] ADC Legal Support Assistant [phone] Мария Hammond MD - 03/19/2020 1:09 PM CST PULMONARY MEDICINE E-CONSULT PROGRESS NOTE Date of Service: 03/19/2020 13:09 HD #: 3 Reason for Consultation: PNA 24 Hour Events/Subjective: Leukocytosis improving Remains on 4L NC Abx narrowed to vanc/zosyn Current Hospital Medications: Current Facility-Administered Medications Medication Dose Route Frequency Last Rate Last Admin ipratropium-albuteroL (DUONEB) 0.5 mg-3 mg(2.5 mg base)/3 mL nebulizer solution 3 mL 3 mL Inhalation Q6HPRN lactobacillus acidophilus (ACIDOPHILLUS) 25 million cell -100 mg captab 1 tablet 1 tablet Oral TID 1 tablet at 03/19/20 1259 acetaminophen (TYLENOL) tablet 650 mg 650 mg Oral Q6HPRN 650 mg at 03/16/20 2146 apixaban (ELIQUIS) tablet 5 mg 5 mg Enteral BID 5 mg at 03/19/20 0929 ondansetron (ZOFRAN (PF)) injection 4 mg 4 mg Slow IV Push Q6HPRN piperacillin-tazobactam (ZOSYN) 3.375 g in NaCl 0.9% (NS) 100 mL MINI-BAG 3.375 g IV Piggyback Q6H ABX 3.375 g at 03/19/20 1259 vancomycin (VANCOCIN) 1,000 mg in NaCl 0.9% (NS) 250 mL VIAL-MATE IV piggyback 1,000 mg IV Piggyback Q12H ABX 1,000 mg at 03/19/20 0929 PHYSICAL EXAM and OBJECTIVE DATA BP 131/66 | Pulse 89 | Temp 36.8 C (98.2 F) | Resp 24 | Ht 5' 11" (1.803 m) | Wt 150 lb (68kg) | SpO2 94% | BMI 20.92 kg/m Did not perform Intake/Output Summary (Last 24 hours) at 03/19/2020 1309 Last data filed at 03/19/2020 0941 Gross per 24 hour Intake 2218 ml Output 1000 ml Net 1218 ml LABORATORY CBC BMP LFTs WBC (10*3/L) Date Value 03/19/2020 12.44 (H) NA (mmol/L) Date Value 03/19/2020 136 ALK PHOS (U/L) Date Value 03/18/2020 88 HGB (g/dL) Date Value 03/19/2020 11.1 (L) K (mmol/L) Date Value 03/19/2020 4.1 ALTv (U/L) Date Value 03/18/2020 77 (H) HCT (%) Date Value 03/19/2020 34.9 (L) CALCIUM (mg/dL) Date Value 03/19/2020 8.5 (L) AST(SGOT) (U/L) Date Value 03/18/2020 67 (H) PLT (10*3/L) Date Value 03/19/2020 456 (H) CL (mmol/L) Date Value 03/19/2020 100 RBC (10*6/L) Date Value 03/19/2020 3.61 (L) BUN (mg/dL) Date Value 03/19/2020 19 Cardio CREATININE (mg/dL) Date Value 03/19/2020 0.59 (L) No results found for: NTBNP Thyroid No results found for: TSH No components found for: GLUC RESULTS REVIEWED: CT thorax 03/16/20: FINDINGS: PULMONARY ARTERIES: Contrast bolus timing is excellent for evaluation of pulmonary arterial vasculature. There is no acute or chronic pulmonary embolism to the proximal to mid segmental level. Normal caliber of main pulmonary artery. CHEST: Lower neck/thyroid: Unremarkable. Lungs: Mild groundglass opacities with tree-in-bud nodularity are noted in the posterior left upper lobe and superior portions of left upper lobe (for example 11:53). Few additional nodular densities are scattered throughout the lung bases. Subcentimeter calcified granuloma within the right upper lobe. Bibasilar subsegmental and dependent atelectasis. Evidence of mucus plugging within the left lower lobe resulting in subsegmental atelectasis and air bronchograms. Solid nodule in the left lower lobe measures 7 mm (11:29). Central airway: Central airways are patent. Pleura: No pleural effusion, thickening or pneumothorax. Thoracic aorta and great vessels: The normal three vessel branching pattern is identified off of the aortic arch. The aorta is normal in diameter. Moderate atherosclerotic disease affects the aorta and its primary branches. Pulmonary arteries: Normal in caliber. Heart and pericardium: Mild to moderate coronary arterial calcifications most prominent within the LAD distribution. No pericardial effusion. Mediastinum and lymph nodes: No enlarged thoracic lymph nodes. Thoracic spine and chest wall: Unremarkable, with normal thoracic vertebral body heights. 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 Visualized upper abdomen: Right anterior liver lobe hepatic cyst measuring 3.5 cm in diameter (11:96). Low attenuated left renal cortical cystic structure measures 5.0 cm in diameter with central density higher than simple fluid, technically indeterminate but likely representing a hemorrhagic or proteinaceous cyst. IMPRESSION No acute pulmonary embolism through the proximal to mid segmental level. Scattered areas of groundglass opacities and tree-in-bud nodularity in the left upper and lower lobes concerning for infection. Few additional groundglass opacity is seen elsewhere in the lung bases. Follow to resolution. Bilateral dependent and subsegmental atelectasis with prominent mucus plugging in the left lower lobe. More specifically, the segmental and subsegmental bronchi supplying the left lower lobe appear filled with hyperattenuating material and/or mucous. Attention on follow-up. Consider bronchoscopy if clinically indicated to exclude possibility of underlying mass. Right liver lobe hepatic cyst measuring 3.5 cm in diameter. Partially visualized left renal cyst measuring 5.0 cm with central density higher than simple fluid, technically indeterminate. If clinically concerned, a nonemergent abdominopelvic CT/MRI with renal mass protocol may be obtained for further evaluation. Assessment & Plan Anam Baker is a 84 year old male with # AHRF on 4L NC 2/2 PNA +/- Aspiration # s/p CVA, PEG-dependent, debility/bed-bound status -MRSA nares negative; good predictive value for MRSA PNA-->would DC vancomycin. Remains on zosyn for PNA coverage (c/f risk MDR organisms given recent oral abx course, NH exposures). ID following. No previous respiratory culture data available to guide therapy. -Influenza and COVID testing negative. No evidence of PE on CT, on systemic AC w/ Eliquis -If volume overloaded on exam, would suggest gentle diuresis w/ IV lasix -Suggest pulmonary toilet (metanebs, vest therapy, hypersal, etc) given evidence of mucus plugging on CT chest; suspect based on chart review, patient w/ ongoing aspiration of secretions -CT chest notes the presence of mucus plugging in LLL w/ concern for possible obstructive process (i.e. lung mass?); depending on patient's clinical course/GOC, can repeat CT scan as OP to ensure resolution. No prior CT results available for comparison. -Patient MPOA has expressed that she would prefer non-aggressive medical interventions (DNR); can try HFNC if respiratory status worsens (would avoid BiPAP given c/f aspiration of secretions). Мария Medina MD Fellow Pulmonary & Critical Care Medicine [employer] HAND Associated attestation - Too Bangura DO - 03/20/2020 2:44 PM CSTI personally examined the patient on 03/19/[address] Medina's fellow's note as written . I actively participated in the decision-making process. Please see the fellow's note for additional details. Too Bangura DO Interventional Pulmonology Division of Pulmonary and Critical Care Medicine Blanca Goldsmith, ANTHONY - 03/19/2020 11:32 AM CST MEDICAL NUTRITION THERAPY Progress Note Present on Admission: Pneumonia Medications: Current Facility-Administered Medications: ipratropium-albuteroL (DUONEB) 0.5 mg-3 mg(2.5 mg base)/3 mL nebulizer solution 3 mL, 3 mL, Inhalation, Q6HPRN, Galen Espinal MD lactobacillus acidophilus (ACIDOPHILLUS) 25 million cell -100 mg captab 1 tablet, 1 tablet, Oral, TID, Galen Espinal MD, 1 tablet at 03/19/20 0929 acetaminophen (TYLENOL) tablet 650 mg, 650 mg, Oral, Q6HPRN, Galen Espinal MD, 650 mg at 03/16/202145 apixaban (ELIQUIS) tablet 5 mg, 5 mg, Enteral, BID, Kimberly Loera, SALES AND MARKETING ADMINISTRATOR, 5 mg at 03/19/20 0929 ondansetron (ZOFRAN (PF)) injection 4 mg, 4 mg, Slow IV Push, Q6HPRN, Galen Espinal MD piperacillin-tazobactam (ZOSYN) 3.375 g in NaCl 0.9% (NS) 100 mL MINI-BAG, 3.375 g, IV Piggyback, Q6H ABX, Nino Calderon DO, 3.375 g at 03/19/20 0551 vancomycin (VANCOCIN) 1,000 mg in NaCl 0.9% (NS) 250 mL VIAL-MATE IV piggyback, 1,000 mg, IV Piggyback, Q12H ABX, Nino Calderon DO, 1,000 mg at 03/19/20 0929 Lab and Medical Test Results: Recent Results (from the past 24 hour(s)) CBC WITH DIFF Collection Time: 03/19/20 3:50 AM Result Value Ref Range WBC 12.44 (H) 4.20 - 10.70 10*3/L RBC 3.61 (L) 4.26 - 5.52 10*6/L HGB 11.1 (L) 12.2 - 16.4 g/dL HCT 34.9 (L) 38.4 - 49.3 % MCV 96.7 (H) 81.7 - 95.6 fL MCH 30.7 26.1 - 32.7 pg MCHC 31.8 31.2 - 35.0 g/dL RDW-SD 48.1 38.5 - 51.6 fL RDW-CV 13.4 12.1 - 15.4 % PLT 456 (H) 150 - 328 10*3/L MPV 10.3 9.8 - 13.0 fL NRBC/100 WBC 0.0 0.0 - 10.0 /100 WBCs NRBC x10^3 <0.01 10*3/L GRAN MAT (NEUT) % 78.9 % IMM GRAN % 1.80 % LYMPH % 9.6 % MONO % 6.4 % EOS % 2.7 % BASO % 0.6 % GRAN MAT x10^3(ANC) 9.83 (H) 1.99 - 6.95 10*3/uL IMM GRAN x10^3 0.22 (H) 0.00 - 0.06 10*3/uL LYMPH x10^3 1.19 1.09 - 3.23 10*3/uL MONO x10^3 0.79 0.36 - 1.02 10*3/uL EOS x10^3 0.34 0.06 - 0.53 10*3/uL BASO x10^3 0.07 0.01 - 0.09 10*3/uL BASIC METABOLIC PANEL (NA, K, CL, CO2, GLUCOSE, BUN, CREATININE, CA) Collection Time: 03/19/20 3:50 AM Result Value Ref Range NA 136 135 - 145 mmol/L K 4.1 3.5 - 5.0 mmol/L CL 100 98 - 108 mmol/L CO2 TOTAL 31 23 - 31 mmol/L AGAP 5 2 - 16 BUN 19 7 - 23 mg/dL GLUCOSE 121 (H) 70 - 110 mg/dL CREATININE 0.59 (L) 0.60 - 1.25 mg/dL CALCIUM 8.5 (L) 8.6 - 10.6 mg/dL eGFR Calculation (Non-) 131.2 mL/min/1.73m2 eGFR Calculation () 159.0 mL/min/1.73m2 Intake/Output Summary (Last 24 hours) at 03/19/2020 1133 Last data filed at 03/19/2020 0941 Gross per 24 hour Intake 2348 ml Output 1600 ml Net 748 ml Weight History: Wt Readings from Last 10 Encounters: No data found for Wt Current Wt: 68 kg/ 150 lb BMI:20.92 kg/m^2 IBW for Ht: 78.13 kg +/- 7.8 kg (for BMI of 24) %IBW: 87% Current Dietary Order(s): NPO Diet. Glucerna 1.2 Heather (1.2 kcal/mL, 20% protein, 35% carbohydrate) Nutrition/Additional History: 03/16- Unable to speak with patient at this time. Spoke with on phone who reports patient got PEG tube placed when he was at [facility] a few weeks ago. She reports she is unsure what tube feeding formula he was receiving prior to this hospital admission. She reports his height is 5'11". She denies history of DM. Patient currently has orders for Glucerna 1.2 to goal of 60 ml/hr with free water flushes of 125 ml Q4 hours (provides 1728 kcal, 86 gm protein, 1916 ml free water). No reports of any GI intolerances with tube feeds. 03/19- Mr. Baker has a history of dementia, aphasia, chronic bed bound condtion; resides in SNF. Unable to gather appropriate diet history from patient. Patient is tolerating Glucerna 1.2 heather @ 60 mL/hr with manual water flushes of 125 mL Q4 hours. LBM 03/17. Will continue to monitor. Estimated Daily Nutritional Needs: Calories: 6258-1307 kcal/day (MSJ *1.2-1.3)= 25-27 kcal/kg current wt = 21-23 kcal/kg IBW Protein: 82-88 g/day = 1.2-1.3 g/kg current wt = 1-1.1 g/kg IBW Carbohydrate: 50 % of kcal need/day = 210-227 g/day = 14-15 choices Fluid: 6886-6107 mL/day or per MD; adjust per acute needs Nutrition Diagnosis: 1. Inadequate oral intake related to dysphagia, PEG tube placement as evidenced by NPO status and need for enteral nutrition to help meet >75% of estimated nutrition needs Nutrition Plan of Care: Intervention(s): 1. Continue formula Glucerna 1.2 with goal of 60 mL/hr (24 hour goal volume: 1440 ml) Initiate at 10-20mL/hr and advance rate 10-20mL/hr every 8-12 hours or as tolerated to goal. HOB 30-45 degrees as medically indicated. Monitor for signs/symptoms of intolerance. Goal rate will provide 1728 kcal and 86 gm protein which will meet 95-103% of kcal needs and 98-104% protein needs 2. Fluid provided by formula alone at goal above (1166 mL) is not sufficient to maintain hydration. 1. Continue free water flushes of 125 ml Q4 hours to provide total of 1916 ml Goal(s): 1. Patient to meet >75% of nutrition needs through enteral nutrition Nutrition Monitoring and Evaluation: A registered dietitian will f/u as indicated to report nutrition related information and to revise the recommended nutrition intervention(s). Please call with questions or concerns, thank-you. Anticipated d/c needs: PEG tube feeds Blanca Goldsmith RD, M[facility] Clinical Dietitian Office: [phone] (not for patient use) Galen Sotelo MD - 03/18/2020 4:35 PM CST Hospital Medicine Progress Note Name: Anam Baker : 1935 Admit Date: 03/16/2020 PCP on file: PATIENT DOES NOT HAVE A PCP ASSESSMENT: Anam Baker is a 84 year old male with h/o stroke, SAH, aphasia, dysphagia on PEG tube feeding, dementia, HTN, DVT, chronic bed bound condition, who was brought from SNF for fever, and hypoxia. PLAN: # Sepsis with respiratory failure, mildly elevated LFTs # HCAP, aspiration PNA # Acute respiratory failure with hypoxia CTA showed mucus plugging Failed treatment patient taking Levaquin via peg Broad spectrum abx with vanco, zosyn, and levaquin day 3 BC x 2 pending Follow CBC with diff Follow MRSA screening Lactic acid normal, procalcitonin 0.57 Duonebs prn Vest therapy qid O2 per protocol to keep oxygen sats > 92%, currently on 4L/min Consulted ID Dr Valles Consulted pulmonology. Appreciate pulmonology inputs #Hx stroke, SAH, aphasia, dysphagia, dementia, bed bound condition Continue Eliquis Patient dysphagic PEG tube in place. Continue Glucerna 1.2 60 mL's per hour with a flush of 125 ML'severy 4 hours Consult nutrition for guidance # h/o HTN - now BP low normal. Hold HTN medication # h/o DVT - on Eliquis Code status: DNR I had tried several times to contact patient's , but no answer Dispo: SNF once medically cleared VTE Prophylaxis: Eliquis Code Status: DNR [place] SENIOR PRINCIPAL was verified during stay Electronically signed by: Galen Espinal MD SUBJECTIVE/ 24-HOUR HOSPITAL EVENTS: 03/17: No acute event. Seems having a lot of airway secretion. Afebrile. 03/18: No acute event. Afebrile. Still on 4L/min. OBJECTIVE: Vital signs range: Temp: [36.6 C (97.9 F)-37.1 C (98.7 F)] 37.1 C (98.7 F) Pulse: [68-95] 80 Resp: [18-20] 20 BP: (94-134)/(58-75) 127/74 Most recent vital signs: BP 127/74 | Pulse 80 | Temp 37.1 C (98.7 F) | Resp 20 | Wt 150 lb (68 kg) | SpO2 98% I/O: I/O last 3 completed shifts: In: 820 [I.V.:500; NG/GT:320] Out: 3700 [Urine:3700] PHYSICAL EXAM: General: Nonverbal; no apparent distress HEENT: pupils equal, round, reactive to light; extraocular movements intact; oropharynx clear; moistmucous membranes Neck: supple, no lymphadenopathy, no bruits, no JVD Lungs: rhonchi bilaterally Cardio: S1, S2 normal; no murmurs, rubs or gallops Abdomen: soft; non-tender; non-distended; normoactive bowel sounds; PEG tube in place Extremities: no clubbing, cyanosis, or edema Skin: no rashes LABS: I reviewed all the relevant patient's new lab test results Recent Results (from the past 24 hour(s)) Vancomycin Trough Level - Draw immediately prior to the 2000 dose, but, no more than 60 minutes before Collection Time: 03/17/20 7:32 PM Result Value Ref Range VANCO TROUGH 10.4 10.0 - 20.0 ug/mL CBC WITH DIFF Collection Time: 03/18/20 3:40 AM Result Value Ref Range WBC 12.23 (H) 4.20 - 10.70 10*3/L RBC 3.42 (L) 4.26 - 5.52 10*6/L HGB 10.3 (L) 12.2 - 16.4 g/dL HCT 33.0 (L) 38.4 - 49.3 % MCV 96.5 (H) 81.7 - 95.6 fL MCH 30.1 26.1 - 32.7 pg MCHC 31.2 31.2 - 35.0 g/dL RDW-SD 48.0 38.5 - 51.6 fL RDW-CV 13.6 12.1 - 15.4 % PLT 421 (H) 150 - 328 10*3/L MPV 10.3 9.8 - 13.0 fL NRBC/100 WBC 0.0 0.0 - 10.0 /100 WBCs NRBC x10^3 <0.01 10*3/L GRAN MAT (NEUT) % 82.0 % IMM GRAN % 1.10 % LYMPH % 8.3 % MONO % 5.8 % EOS % 2.5 % BASO % 0.3 % GRAN MAT x10^3(ANC) 10.01 (H) 1.99 - 6.95 10*3/uL IMM GRAN x10^3 0.14 (H) 0.00 - 0.06 10*3/uL LYMPH x10^3 1.02 (L) 1.09 - 3.23 10*3/uL MONO x10^3 0.71 0.36 - 1.02 10*3/uL EOS x10^3 0.31 0.06 - 0.53 10*3/uL BASO x10^3 0.04 0.01 - 0.09 10*3/uL COMP. METABOLIC PANEL ([id number]) Collection Time: 03/18/20 3:40 AM Result Value Ref Range NA 135 135 - 145 mmol/L K 4.2 3.5 - 5.0 mmol/L CL 99 98 - 108 mmol/L CO2 TOTAL 31 23 - 31 mmol/L AGAP 5 2 - 16 BUN 18 7 - 23 mg/dL GLUCOSE 117 (H) 70 - 110 mg/dL CREATININE 0.59 (L) 0.60 - 1.25 mg/dL TOTAL BILI 0.4 0.1 - 1.1 mg/dL CALCIUM 8.2 (L) 8.6 - 10.6 mg/dL T PROTEIN 4.6 (L) 6.3 - 8.2 g/dL ALBUMIN 2.3 (L) 3.5 - 5.0 g/dL ALK PHOS 88 34 - 122 U/L ALTv 77 (H) 5 - 50 U/L AST(SGOT) 67 (H) 13 - 40 U/L eGFR Calculation (Non-) 131.2 mL/min/1.73m2 eGFR Calculation () 159.0 mL/min/1.73m2 IMAGING: I reviewed all the relevant patient's new radiology test results Hospital Encounter on 03/16/20 CT CHEST PULMONARY ANGIOGRAM Narrative CT CHEST PULMONARY ANGIOGRAM HISTORY: 84 years-old; Male; PE suspected, intermediate prob, positive D-dimer COMPARISON: None. TECHNIQUE: Helical CT was performed after the administration of 100 mL iodinated intravenous contrast and reconstructed at 1.0 mm slice thickness from lung base to apices. Display field of view: 40 cm. IMAGE QUALITY: Evaluation of the study is mildly limited due to motion artifact. FINDINGS: PULMONARY ARTERIES: Contrast bolus timing is excellent for evaluation of pulmonary arterial vasculature. There is no acute or chronic pulmonary embolism to the proximal to mid segmental level. Normal caliber of main pulmonary artery. CHEST: Lower neck/thyroid: Unremarkable. Lungs: Mild groundglass opacities with tree-in-bud nodularity are noted in the posterior left upper lobe and superior portions of left upper lobe (for example 11:53). Few additional nodular densities are scattered throughout the lung bases. Subcentimeter calcified granuloma within the right upper lobe. Bibasilar subsegmental and dependent atelectasis. Evidence of mucus plugging within the left lower lobe resulting in subsegmental atelectasis and air bronchograms. Solid nodule in the left lower lobe measures 7 mm (11:29). Central airway: Central airways are patent. Pleura: No pleural effusion, thickening or pneumothorax. Thoracic aorta and great vessels: The normal three vessel branching pattern is identified off of the aortic arch. The aorta is normal in diameter. Moderate atherosclerotic disease affects the aorta and its primary branches. Pulmonary arteries: Normal in caliber. Heart and pericardium: Mild to moderate coronary arterial calcifications most prominent within the LAD distribution. No pericardial effusion. Mediastinum and lymph nodes: No enlarged thoracic lymph nodes. Thoracic spine and chest wall: Unremarkable, with normal thoracic vertebral body heights. 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 Visualized upper abdomen: Right anterior liver lobe hepatic cyst measuring 3.5 cm in diameter (11:96). Low attenuated left renal cortical cystic structure measures 5.0 cm in diameter with central density higher than simple fluid, technically indeterminate but likely representing a hemorrhagic or proteinaceous cyst. Impression No acute pulmonary embolism through the proximal to mid segmental level. Scattered areas of groundglass opacities and tree-in-bud nodularity in the left upper and lower lobes concerning for infection. Few additional groundglass opacity is seen elsewhere in the lung bases. Follow to resolution. Bilateral dependent and subsegmental atelectasis with prominent mucus plugging in the left lower lobe. More specifically, the segmental and subsegmental bronchi supplying the left lower lobe appear filled with hyperattenuating material and/or mucous. Attention on follow-up. Consider bronchoscopy if clinically indicated to exclude possibility of underlying mass. Right liver lobe hepatic cyst measuring 3.5 cm in diameter. Partially visualized left renal cyst measuring 5.0 cm with central density higher than simple fluid, technically indeterminate. If clinically concerned, a nonemergent abdominopelvic CT/MRI with renal mass protocol may be obtained for further evaluation. Preliminary Report Dictated by Resident: Hilton Rodas MD., have reviewed this study and agree with the above report. XR CHEST 1 VW Narrative PROCEDURE: XR CHEST 1 VW CLINICAL INDICATION: sepsis TECHNIQUE: Frontal chest radiographs were obtained. COMPARISON: None FINDINGS: Linear airspace disease within the left lower lobe probably represents atelectasis. Additional streaky opacities are seen within the right lung base. No pleural effusion or pneumothorax is seen. The heart is normal in size. Aortic arch calcifications are noted. No acute bony abnormality is noted. Impression Bibasilar airspace opacities, probably atelectasis. However, although less likely, these may represent infectious process in appropriate clinical setting. Preliminary Report Dictated by Resident: Hilton Mendez MD., have reviewed this study and agree with the above report. MEDICATIONS: I reviewed the current inpatient medications ordered Current Facility-Administered Medications Medication Dose Route Frequency Last Rate Last Admin ipratropium-albuteroL (DUONEB) 0.5 mg-3 mg(2.5 mg base)/3 mL nebulizer solution 3 mL 3 mL Inhalation Q6HPRN lactobacillus acidophilus (ACIDOPHILLUS) 25 million cell -100 mg captab 1 tablet 1 tablet Oral TID 1 tablet at 03/18/20 1449 acetaminophen (TYLENOL) tablet 650 mg 650 mg Oral Q6HPRN 650 mg at 03/16/20 2146 apixaban (ELIQUIS) tablet 5 mg 5 mg Enteral BID 5 mg at 03/18/20 0858 levoFLOXacin in D5W (LEVAQUIN) 750 mg/150 mL Piggyback 750 mg 750 mg IV Piggyback Q24H ABX 750 mg at 03/18/20 1449 ondansetron (ZOFRAN (PF)) injection 4 mg 4 mg Slow IV Push Q6HPRN piperacillin-tazobactam (ZOSYN) 3.375 g in NaCl 0.9% (NS) 100 mL MINI-BAG 3.375 g IV Piggyback Q6H ABX 3.375 g at 03/18/20 1211 vancomycin (VANCOCIN) 1,000 mg in NaCl 0.9% (NS) 250 mL VIAL-MATE IV piggyback 1,000 mg IV Piggyback Q12H ABX 1,000 mg at 03/18/20 0858 alen Espinal MD - 03/17/2020 2:08 PM CST [facility] Medicine Progress Note Name: Anam Baker : 1935 Admit Date: 03/16/2020 PCP on file: PATIENT DOES NOT HAVE A PCP ASSESSMENT: Anam Baker is a 84 year old male with h/o stroke, SAH, aphasia, dysphagia on PEG tube feeding, dementia, HTN, DVT, chronic bed bound condition, who was brought from SNF for fever, and hypoxia. PLAN: # Sepsis with respiratory failure, mildly elevated LFTs # HCAP, aspiration PNA # Acute respiratory failure with hypoxia CTA showed mucus plugging Failed treatment patient taking Levaquin via peg Broad spectrum abx with vanco, zosyn, and levaquin day 2 BC x 2 pending Follow CBC with diff Lactic acid normal, procalcitonin 0.57 Duonebs prn O2 per protocol to keep oxygen sats > 92%, currently on 4L/min Consulted ID Dr Valles Consult pulmonology. ? Needs bronchoscopy #Hx stroke, SAH, aphasia, dysphagia, dementia, bed bound condition Continue Eliquis Patient dysphagic PEG tube in place. Continue Glucerna 1.2 60 mL's per hour with a flush of 125 ML'severy 4 hours Consult nutrition for guidance # h/o HTN - now BP low normal. Hold HTN medication # h/o DVT - on Eliquis Code status: DNR I had tried several times to contact patient's , but no answer Dispo: SNF once medically cleared VTE Prophylaxis: Eliquis Code Status: DNR Michael SENIOR PRINCIPAL was verified during stay Electronically signed by: Galen Espinal MD SUBJECTIVE/ 24-HOUR HOSPITAL EVENTS: 03/17: No acute event. Seems having a lot of airway secretion. Afebrile. OBJECTIVE: Vital signs range: Temp: [36.3 C (97.4 F)-37.2 C (99 F)] 36.9 C (98.5 F) Pulse: [71-97] 83 Resp: [18-28] 20 BP: (92-112)/(60-74) 112/60 Most recent vital signs: BP 112/60 | Pulse 83 | Temp 36.9 C (98.5 F) | Resp 20 | Wt 150 lb (68 kg) | SpO2 92% I/O: I/O last 3 completed shifts: In: 390 [I.V.:250; NG/GT:140] Out: 1200 [Urine:1200] PHYSICAL EXAM: General: Nonverbal; no apparent distress HEENT: pupils equal, round, reactive to light; extraocular movements intact; oropharynx clear; moistmucous membranes Neck: supple, no lymphadenopathy, no bruits, no JVD Lungs: rhonchi bilaterally Cardio: S1, S2 normal; no murmurs, rubs or gallops Abdomen: soft; non-tender; non-distended; normoactive bowel sounds; PEG tube in place Extremities: no clubbing, cyanosis, or edema Skin: no rashes LABS: I reviewed all the relevant patient's new lab test results Recent Results (from the past 24 hour(s)) CBC with Differential Collection Time: 03/17/20 5:37 AM Result Value Ref Range WBC 16.37 (H) 4.20 - 10.70 10*3/L RBC 3.34 (L) 4.26 - 5.52 10*6/L HGB 10.5 (L) 12.2 - 16.4 g/dL HCT 32.0 (L) 38.4 - 49.3 % MCV 95.8 (H) 81.7 - 95.6 fL MCH 31.4 26.1 - 32.7 pg MCHC 32.8 31.2 - 35.0 g/dL RDW-SD 48.5 38.5 - 51.6 fL RDW-CV 13.8 12.1 - 15.4 % PLT 384 (H) 150 - 328 10*3/L MPV 10.2 9.8 - 13.0 fL NRBC/100 WBC 0.0 0.0 - 10.0 /100 WBCs NRBC x10^3 <0.01 10*3/L GRAN MAT (NEUT) % 85.1 % IMM GRAN % 1.00 % LYMPH % 6.5 % MONO % 5.1 % EOS % 2.0 % BASO % 0.3 % GRAN MAT x10^3(ANC) 13.92 (H) 1.99 - 6.95 10*3/uL IMM GRAN x10^3 0.16 (H) 0.00 - 0.06 10*3/uL LYMPH x10^3 1.07 (L) 1.09 - 3.23 10*3/uL MONO x10^3 0.84 0.36 - 1.02 10*3/uL EOS x10^3 0.33 0.06 - 0.53 10*3/uL BASO x10^3 0.05 0.01 - 0.09 10*3/uL Basic Metabolic Panel (NA, K, CL, CO2, GLUCOSE, BUN, CREATININE, CA) Collection Time: 03/17/20 5:37 AM Result Value Ref Range NA 135 135 - 145 mmol/L K 3.9 3.5 - 5.0 mmol/L CL 95 (L) 98 - 108 mmol/L CO2 TOTAL 35 (H) 23 - 31 mmol/L AGAP 5 2 - 16 BUN 24 (H) 7 - 23 mg/dL GLUCOSE 126 (H) 70 - 110 mg/dL CREATININE 0.60 0.60 - 1.25 mg/dL CALCIUM 8.6 8.6 - 10.6 mg/dL eGFR Calculation (Non-) 128.7 mL/min/1.73m2 eGFR Calculation () 155.9 mL/min/1.73m2 Magnesium Serum Collection Time: 03/17/20 5:37 AM Result Value Ref Range MAGNESIUM 2.0 1.7 - 2.4 mg/dL PROCALCITONIN Collection Time: 03/17/20 5:38 AM Result Value Ref Range Procalcitonin 0.57 (H) <0.07 ng/mL IMAGING: I reviewed all the relevant patient's new radiology test results Hospital Encounter on 03/16/20 CT CHEST PULMONARY ANGIOGRAM Narrative CT CHEST PULMONARY ANGIOGRAM HISTORY: 84 years-old; Male; PE suspected, intermediate prob, positive D-dimer COMPARISON: None. TECHNIQUE: Helical CT was performed after the administration of 100 mL iodinated intravenous contrast and reconstructed at 1.0 mm slice thickness from lung base to apices. Display field of view: 40 cm. IMAGE QUALITY: Evaluation of the study is mildly limited due to motion artifact. FINDINGS: PULMONARY ARTERIES: Contrast bolus timing is excellent for evaluation of pulmonary arterial vasculature. There is no acute or chronic pulmonary embolism to the proximal to mid segmental level. Normal caliber of main pulmonary artery. CHEST: Lower neck/thyroid: Unremarkable. Lungs: Mild groundglass opacities with tree-in-bud nodularity are noted in the posterior left upper lobe and superior portions of left upper lobe (for example 11:53). Few additional nodular densities are scattered throughout the lung bases. Subcentimeter calcified granuloma within the right upper lobe. Bibasilar subsegmental and dependent atelectasis. Evidence of mucus plugging within the left lower lobe resulting in subsegmental atelectasis and air bronchograms. Solid nodule in the left lower lobe measures 7 mm (11:29). Central airway: Central airways are patent. Pleura: No pleural effusion, thickening or pneumothorax. Thoracic aorta and great vessels: The normal three vessel branching pattern is identified off of the aortic arch. The aorta is normal in diameter. Moderate atherosclerotic disease affects the aorta and its primary branches. Pulmonary arteries: Normal in caliber. Heart and pericardium: Mild to moderate coronary arterial calcifications most prominent within the LAD distribution. No pericardial effusion. Mediastinum and lymph nodes: No enlarged thoracic lymph nodes. Thoracic spine and chest wall: Unremarkable, with normal thoracic vertebral body heights. 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 Visualized upper abdomen: Right anterior liver lobe hepatic cyst measuring 3.5 cm in diameter (11:96). Low attenuated left renal cortical cystic structure measures 5.0 cm in diameter with central density higher than simple fluid, technically indeterminate but likely representing a hemorrhagic or proteinaceous cyst. Impression No acute pulmonary embolism through the proximal to mid segmental level. Scattered areas of groundglass opacities and tree-in-bud nodularity in the left upper and lower lobes concerning for infection. Few additional groundglass opacity is seen elsewhere in the lung bases. Follow to resolution. Bilateral dependent and subsegmental atelectasis with prominent mucus plugging in the left lower lobe. More specifically, the segmental and subsegmental bronchi supplying the left lower lobe appear filled with hyperattenuating material and/or mucous. Attention on follow-up. Consider bronchoscopy if clinically indicated to exclude possibility of underlying mass. Right liver lobe hepatic cyst measuring 3.5 cm in diameter. Partially visualized left renal cyst measuring 5.0 cm with central density higher than simple fluid, technically indeterminate. If clinically concerned, a nonemergent abdominopelvic CT/MRI with renal mass protocol may be obtained for further evaluation. Preliminary Report Dictated by Resident: Hilton Rodas MD., have reviewed this study and agree with the above report. XR CHEST 1 VW Narrative PROCEDURE: XR CHEST 1 VW CLINICAL INDICATION: sepsis TECHNIQUE: Frontal chest radiographs were obtained. COMPARISON: None FINDINGS: Linear airspace disease within the left lower lobe probably represents atelectasis. Additional streaky opacities are seen within the right lung base. No pleural effusion or pneumothorax is seen. The heart is normal in size. Aortic arch calcifications are noted. No acute bony abnormality is noted. Impression Bibasilar airspace opacities, probably atelectasis. However, although less likely, these may represent infectious process in appropriate clinical setting. Preliminary Report Dictated by Resident: Hilton Mendez MD., have reviewed this study and agree with the above report. MEDICATIONS: I reviewed the current inpatient medications ordered Current Facility-Administered Medications Medication Dose Route Frequency Last Rate Last Admin acetaminophen (TYLENOL) tablet 650 mg 650 mg Oral Q6HPRN 650 mg at 12/04/20 2146 apixaban (ELIQUIS) tablet 5 mg 5 mg Enteral BID 5 mg at 03/17/20 0844 levoFLOXacin in D5W (LEVAQUIN) 750 mg/150 mL Piggyback 750 mg 750 mg IV Piggyback Q24H ABX 750 mg at 03/16/20 1736 ondansetron (ZOFRAN (PF)) injection 4 mg 4 mg Slow IV Push Q6HPRN piperacillin-tazobactam (ZOSYN) 3.375 g in NaCl 0.9% (NS) 100 mL MINI-BAG 3.375 g IV Piggyback Q6H ABX 3.375 g at 03/17/20 1244 vancomycin (VANCOCIN) 1,000 mg in NaCl 0.9% (NS) 250 mL VIAL-MATE IV piggyback 1,000 mg IV Piggyback Q12H ABX 1,000 mg at 03/17/20 0844 Anali Rawls LBSW - 03/16/2020 12:52 PM CSTSubjective Patient ID: Anam Baker is a 84 year old male. Care Management Social Functional Assessment Patient Name: Anam Baker Age: [age] year old Sex: male Previous admit date: N/A Current diagnosis and co-morbidities: pneumonia; hypoxia Readmission Questions: Was patient discharged from any acute care hospital within the last 30 days: No Social Functional Assessment: Primary language spoken/preferred: Iraqi Mental Status: Lethargic/Stuporous (difficult to arouse) Information given by: Spouse Name and phone number of person giving information: Galilea Baker, Patient's support system: Spouse Name and number of support system: Galilea Baker, Primary Industrial Gas Servicer Helper: Spouse MPOA: Same as support system Living Arrangement: Home Address of living arrangement : [address] [place] [id number] Persons living in home: Self;Spouse Barriers to returning home: None Baseline functional status- ambulation: Dependent Functional status-baseline personal care: Dependent Baseline functional status- driving: Dependent Baseline functional status- grocery shopping: Dependent Functional status-baseline housekeeping: Dependent Functional status-baseline meal prep: Dependent Current functional status same as prior: Yes Do you have a PCP?: Yes Home Health Care Agency: No Provider Services: No DME Company: No Equipment: Cane;Walker;Shower Chair Hemodialysis: No Community resources utilized: SSA/SSI/Medicaid Funding Resources: Medicare Replacement Medicare Replacement name and information: [employer] Prescription coverage plan: Medicare Part D Pharmacy where meds are filled: Other Anticipated services prior to disharge: Continue Medical Eval Expected mode of discharge transportation: Ambulance Additional Recommendations for DC: medical clearance, will assess dc needs Additional info required for discharge planning: Pending medical evaluation Recommended discharge plan: Home SFA Complete: Social Functional Assessment complete: Yes Alcohol Use Screening (AUDIT-C) How often do you have a drink containing alcohol?: Never SCORE: 0 Did patient elect to have resources provided: No Role of Care Management explained. Any issues or concerns with obtaining/affording your medications at home: no. Are you or your support system able to miner pick medications at discharge: yes. Review of Systems Objective Physical Exam Assessment/Plan Will assess discharge needs. Patient was previously at [facility]. RAFFAELE Abdi Wet Machine Operator - Care Management [facility] [phone] [email or web address] Ricci LBSW - 03/16/2020 12:41 PM CSTSubjective Patient ID: Anam Baker is a 84 year old male. SW assisted in completion of MPOA and Advanced Directives with patient's . Copy placed in patient's chart. RAFFAELE Abdi Wet Machine Operator - Care Management [facility] [phone] [email or web address] Review of Systems Objective Physical Exam Assessment/Plan Will address discharge needs GOODS PRESS HAND documented in this encounter H&P Notes Kimberly Loera FNP - 03/16/2020 3:[address] [facility] Hospitalist Admission H&P Date of Service: 03/16/2020 CHIEF COMPLAINT: Hypoxia HISTORY OF PRESENT ILLNESS Anam Baker is a 84 year old male with history of a stroke, patient dementia, nonverbal, baselinewho presents with fever, cough, hypoxia for [facility]. Patient was recently treated for pneumonia with Levaquin outpatient, and patient was found to have the bronchi on exam. Patient is nonverbaland unable to complete review of system. Spoke to patient's Galilea who stated that patient had a stroke may be 6 weeks ago, and she was told that her went never improve. Per she just wants to keep him comfortable PAST MEDICAL HISTORY Past Medical History: Diagnosis Date Stroke PAST SURGICAL HISTORY Past Surgical History: Procedure Laterality Date JOINT SURGERY ALLERGIES No Known Allergies MEDICATIONS Current home medication list reviewed: Current Discharge Medication List STOP taking these medications acetaminophen (TYLENOL) 325 mg tablet Comments: Reason for Stopping: apixaban (ELIQUIS) 5 mg tablet Comments: Reason for Stopping: baclofen (LIORESAL) 5 mg/mL suspension Comments: Reason for Stopping: levoFLOXacin (LEVAQUIN) 500 mg tablet Comments: Reason for Stopping: modafiniL 200 mg tablet Comments: Reason for Stopping: FAMILY HISTORY Family History Family history unknown: Yes SOCIAL HISTORY Social History Socioeconomic History Marital status: Spouse name: Not on file Number of children: Not on file Years of education: Not on file Highest education level: Not on file Occupational History Not on file Social Needs Financial resource strain: Not on file Food insecurity Worry: Not on file Inability: Not on file Transportation needs Medical: Not on file Non-medical: Not on file Tobacco Use Smoking status: Never Smoker Smokeless tobacco: Never Used Substance and Sexual Activity Alcohol use: Not Currently Drug use: Not on file Sexual activity: Not on file Lifestyle Physical activity Days per week: Not on file Minutes per session: Not on file Stress: Not on file Relationships Social connections Talks on phone: Not on file Gets together: Not on file Attends anglican service: Not on file Active member of club or organization: Not on file Attends meetings of clubs or organizations: Not on file Relationship status: Not on file Intimate partner violence Fear of current or ex partner: Not on file Emotionally abused: Not on file Physically abused: Not on file Forced sexual activity: Not on file Other Topics Concern Not on file Social History Narrative Patient at [facility] REVIEW OF SYSTEMS Unable to perform patient nonresponsive PHYSICAL EXAMINATION BP 97/85 | Pulse 99 | Temp 37.2 C (98.9 F) (Temporal Artery) | Resp 28 | Wt 68 kg (150 lb) | SpO2 96% General: No acute distress, contracted, in a position HEENT: Normal oral mucosa, anicteric sclerae, NCAT Cardiovascular: RRR, strong symmetric radial pulses Lungs: Rhonchi bilaterally Abdomen: Soft, PEG tube in place clamped off Musculoskeletal: Normal ROM, normal muscle mass Genitourinary: Melissa catheter in place Skin: No rash, lesions Neuro: Unresponsive only to noxious stimuli Psych: Normal affect LABS - reviewed pertinent labs as below: CBC BMP PT/INR WBC (10*3/L) Date Value 03/16/2020 25.22 (H) NA (mmol/L) Date Value 03/16/2020 131 (L) No results found for: PT RBC (10*6/L) Date Value 03/16/2020 3.87 (L) K (mmol/L) Date Value 03/16/2020 5.0 No results found for: PTINR PLT (10*3/L) Date Value 03/16/2020 469 (H) CALCIUM (mg/dL) Date Value 03/16/2020 8.7 HGB (g/dL) Date Value 03/16/2020 12.1 (L) CL (mmol/L) Date Value 03/16/2020 90 (L) aPTT HCT (%) Date Value 03/16/2020 36.6 (L) BUN (mg/dL) Date Value 03/16/2020 32 (H) No results found for: APTTPAT CREATININE (mg/dL) Date Value 03/16/2020 0.62 IMAGING - reviewed, pertinent results as below: Hospital Encounter on 03/16/20 CT CHEST PULMONARY ANGIOGRAM Narrative CT CHEST PULMONARY ANGIOGRAM HISTORY: 84 years-old; Male; PE suspected, intermediate prob, positive D-dimer COMPARISON: None. TECHNIQUE: Helical CT was performed after the administration of 100 mL iodinated intravenous contrast and reconstructed at 1.0 mm slice thickness from lung base to apices. Display field of view: 40 cm. IMAGE QUALITY: Evaluation of the study is mildly limited due to motion artifact. FINDINGS: PULMONARY ARTERIES: Contrast bolus timing is excellent for evaluation of pulmonary arterial vasculature. There is no acute or chronic pulmonary embolism to the proximal to mid segmental level. Normal caliber of main pulmonary artery. CHEST: Lower neck/thyroid: Unremarkable. Lungs: Mild groundglass opacities with tree-in-bud nodularity are noted in the posterior left upper lobe and superior portions of left upper lobe (for example 11:53). Few additional nodular densities are scattered throughout the lung bases. Subcentimeter calcified granuloma within the right upper lobe. Bibasilar subsegmental and dependent atelectasis. Evidence of mucus plugging within the left lower lobe resulting in subsegmental atelectasis and air bronchograms. Solid nodule in the left lower lobe measures 7 mm (11:29). Central airway: Central airways are patent. Pleura: No pleural effusion, thickening or pneumothorax. Thoracic aorta and great vessels: The normal three vessel branching pattern is identified off of the aortic arch. The aorta is normal in diameter. Moderate atherosclerotic disease affects the aorta and its primary branches. Pulmonary arteries: Normal in caliber. Heart and pericardium: Mild to moderate coronary arterial calcifications most prominent within the LAD distribution. No pericardial effusion. Mediastinum and lymph nodes: No enlarged thoracic lymph nodes. Thoracic spine and chest wall: Unremarkable, with normal thoracic vertebral body heights. 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 Visualized upper abdomen: Right anterior liver lobe hepatic cyst measuring 3.5 cm in diameter (11:96). Low attenuated left renal cortical cystic structure measures 5.0 cm in diameter with central density higher than simple fluid, technically indeterminate but likely representing a hemorrhagic or proteinaceous cyst. Impression No acute pulmonary embolism through the proximal to mid segmental level. Scattered areas of groundglass opacities and tree-in-bud nodularity in the left upper and lower lobes concerning for infection. Few additional groundglass opacity is seen elsewhere in the lung bases. Follow to resolution. Bilateral dependent and subsegmental atelectasis with prominent mucus plugging in the left lower lobe. More specifically, the segmental and subsegmental bronchi supplying the left lower lobe appear filled with hyperattenuating material and/or mucous. Attention on follow-up. Consider bronchoscopy if clinically indicated to exclude possibility of underlying mass. Right liver lobe hepatic cyst measuring 3.5 cm in diameter. Partially visualized left renal cyst measuring 5.0 cm with central density higher than simple fluid, technically indeterminate. If clinically concerned, a nonemergent abdominopelvic CT/MRI with renal mass protocol may be obtained for further evaluation. Preliminary Report Dictated by Resident: Zully Polanco I, Hilton Carbajal MD., have reviewed this study and agree with the above report. XR CHEST 1 VW Narrative PROCEDURE: XR CHEST 1 VW CLINICAL INDICATION: sepsis TECHNIQUE: Frontal chest radiographs were obtained. COMPARISON: None FINDINGS: Linear airspace disease within the left lower lobe probably represents atelectasis. Additional streaky opacities are seen within the right lung base. No pleural effusion or pneumothorax is seen. The heart is normal in size. Aortic arch calcifications are noted. No acute bony abnormality is noted. Impression Bibasilar airspace opacities, probably atelectasis. However, although less likely, these may represent infectious process in appropriate clinical setting. Preliminary Report Dictated by Resident: Britney Oden I, Hilton Carbajal MD., have reviewed this study and agree with the above report. ASSESSMENT/PLAN Anam Baker 84 year-old White male #Pneumonia likely secondary to HAP verses aspirate PN Failed treatment patient taking Levaquin via peg Sepsis secondary to pneumonia, by way of fever, leukocytosis BC x 2 pending Lactic acid normal, procalcitonin pending results Duonebs as ordered O2 per protocol to keep oxygen sats > 92% Levaquin IV, Zosyn and Vancomycin Day [address] Valles, will appreciate your input #Hx stroke 6 weeks ago Continue Eliquis Patient dysphagic PEG tube in place Glucerna 1.2 60 mL's per hour with a flush of 125 ML's every 4 hours Consult nutrition for guidance Prophylaxis: DVT- eliquis Stress Ulcer: no indication for prophylaxis Advanced Care Planning (Z71.89) Above assessment and plan discussed at length with patient, patient expressed full understanding. Questions and concerned addressed, I spent 18 minutes discussing the advance care plan. Surrogate decision maker: Galilea Baker [phone] Level of care expected after discharge: Total care back to SNF Code status: DNR/ DNI spoke with patient's Galilea, confirmed patient was a DNR/DNI Smoking Cessation: (Z71.6) Tobacco user?: non smoker Patient will require inpatient stay of 2 midnights or more given high risk of morbidity and mortality. [place] [facility] was viewed during this stay DAVID Elizondo GOODS PRESS HAND Associated attestation - Galen Espinal MD - 03/16/2020 5:56 PM CSTI personally evaluated and examined the patient on 03/16/2020 and agree with the note as detailed by the nurse practitioner. I actively participated in the decision- making process. In summary, patient was admitted for sepsis 2/2 HCAP. H/o stroke, hemorrhagic. Broad spectrum abx. ID consult. Talked to patient's son. Rest of plan per below. Galen Espinal M.D. 03/16/2020 5:54 PM documented in this encounter Consult Notes Arleen Merida RD - 03/17/2020 3:16 PM CSTAssociated Order(s): CONSULT FOOD AND NUTRITION Medical Nutrition Therapy- Consult Note: Reason For Consultation: Physician consult: Reason for consult - please give recommendation or opinion on: Patient uses Glucerna 1.2 60 ml/hr with 125 ml flush q 4 hr Malnutrition Assessment: Admission Chief Complaint: The pts chief complaint(s) documented on 03/16/2020 by DAVID Loera were hypoxia. Present on Admission: Pneumonia PMH/PSH: Past Medical History: Diagnosis Date Stroke Past Surgical History: Procedure Laterality Date JOINT SURGERY Current Medical Status: I have reviewed Dr. Espinal's progress note dated 03/17/2020 and additional EPIC documentation for an understanding of the patient's current medical condition and plan of care. GI and Nutrition Related Findings: Symptoms: N/A Difficulty: Swallowing GI tract alteration: N/A Alternative means of nutrition: PEG/PEJ General: N/A Medications: I have reviewed the medications currently ordered in the EMR located under the medications andMAR tabs. Current medications include: Current Facility-Administered Medications: ipratropium-albuteroL (DUONEB) 0.5 mg-3 mg(2.5 mg base)/3 mL nebulizer solution 3 mL, 3 mL, Inhalation, Q6HPRN, Galen Espinal MD lactobacillus acidophilus (ACIDOPHILLUS) 25 million cell -100 mg captab 1 tablet, 1 tablet, Oral, TID, Galen Espinal MD acetaminophen (TYLENOL) tablet 650 mg, 650 mg, Oral, Q6HPRN, Galen Espinal MD, 650 mg at 03/16/20 2146 apixaban (ELIQUIS) tablet 5 mg, 5 mg, Enteral, BID, Kimberly Loera, SALES AND MARKETING ADMINISTRATOR, 5 mg at 03/17/20 0844 levoFLOXacin in D5W (LEVAQUIN) 750 mg/150 mL Piggyback 750 mg, 750 mg, IV Piggyback, Q24H ABX, Kimberly Loera FNP, 750 mg at 03/16/20 1736 ondansetron (ZOFRAN (PF)) injection 4 mg, 4 mg, Slow IV Push, Q6HPRN, Galen Espinal MD piperacillin-tazobactam (ZOSYN) 3.375 g in NaCl 0.9% (NS) 100 mL MINI-BAG, 3.375 g, IV Piggyback, Q6H ABX, Nino Calderon DO, 3.375 g at 03/17/20 1244 vancomycin (VANCOCIN) 1,000 mg in NaCl 0.9% (NS) 250 mL VIAL-MATE IV piggyback, 1,000 mg, IV Piggyback, Q12H ABX, Nino Calderon DO, 1,000 mg at 03/17/20 0844 Lab and Medical Test Results: CMP NA (mmol/L) Date Value 03/17/2020 135 K (mmol/L) Date Value 03/17/2020 3.9 CALCIUM (mg/dL) Date Value 03/17/2020 8.6 CL (mmol/L) Date Value 03/17/2020 95 (L) BUN (mg/dL) Date Value 03/17/2020 24 (H) CREATININE (mg/dL) Date Value 03/17/2020 0.60 GLUCOSE (mg/dL) Date Value 03/17/2020 126 (H) CO2 TOTAL (mmol/L) Date Value 03/17/2020 35 (H) ALBUMIN (g/dL) Date Value 03/16/2020 3.1 (L) T PROTEIN (g/dL) Date Value 03/16/2020 6.2 (L) TOTAL BILI (mg/dL) Date Value 03/16/2020 0.5 ALTv (U/L) Date Value 03/16/2020 64 (H) AST(SGOT) (U/L) Date Value 03/16/2020 43 (H) ALK PHOS (U/L) Date Value 03/16/2020 116 CBC WBC (10*3/L) Date Value 03/17/2020 16.37 (H) RBC (10*6/L) Date Value 03/17/2020 3.34 (L) PLT (10*3/L) Date Value 03/17/2020 384 (H) HGB (g/dL) Date Value 03/17/2020 10.5 (L) HCT (%) Date Value 03/17/2020 32.0 (L) No results found for: HGBA1C Results for ANAM BAKER ( ) as of 03/17/2020 15:40 Ref. Range 03/16/2020 08:58 03/17/2020 05:37 GLUCOSE Latest Ref Range: 70 - 110 mg/dL 131 (H) 126 (H) Intake/Output Summary (Last 24 hours) at 03/17/2020 1516 Last data filed at 03/17/2020 0856 Gross per 24 hour Intake 490 ml Output 1150 ml Net -660 ml Nutrition Assessment: Age: [age] year old Sex: male Ht: 1.80m / 5'11" (per 's report) Ht Readings from Last 3 Encounters: No data found for Ht Current Wt: 68 kg/ 150 lb BMI:20.92 kg/m^2 There is no height or weight on file to calculate BMI. (Underweight for age ) IBW for Ht: 78.13 kg +/- 7.8 kg (for BMI of 24) %IBW: 87% Weight History: Wt Readings from Last 10 Encounters: 03/16/20 68 kg (150 lb) Inflammatory Markers: Hyperglycemia and Increased HR (>90) Current Dietary Order(s): NPO Diet. Glucerna 1.2 Heather (1.2 kcal/mL, 20% protein, 35% carbohydrate) EMR documented food allergies/intolerance/cultural preferences: [facility] Nutrition & Diet History: Unable to speak with patient at this time. Spoke with on phone who reports patient got PEG tubeplaced when he was at [facility] a few weeks ago. She reports she is unsure what tube feeding formula he was receiving prior to this hospital admission. She reports his height is 5'11". She denies history of DM. Patient currently has orders for Glucerna 1.2 to goal of 60 ml/hr with free water flushes of 125 ml Q4 hours (provides 1728 kcal, 86 gm protein, 1916 ml free water). No reports of anyGI intolerances with tube feeds. Estimated Daily Nutritional Needs: Calories: 8110-9578 kcal/day (MSJ *1.2-1.3)= 25-27 kcal/kg current wt = 21-23 kcal/kg IBW Protein: 68-82 g/day = 1-1.2 g/kg current wt = 0.9-1 g/kg IBW Carbohydrate: 50 % of kcal need/day = 210-227 g/day = 14-15 choices Fluid: 4756-3808 mL/day or per MD; adjust per acute needs Nutrition Diagnosis: 1. Inadequate oral intake related to dysphagia, PEG tube placement as evidenced by NPO status and need for enteral nutrition to help meet >75% of estimated nutrition needs Nutrition Plan of Care: Intervention(s): 1. Continue formula Glucerna 1.2 with goal of 60 mL/hr (24 hour goal volume: 1440 ml) Initiate at 10-20mL/hr and advance rate 10-20mL/hr every 8-12 hours or as tolerated to goal. HOB 30-45 degrees as medically indicated. Monitor for signs/symptoms of intolerance. Goal rate will provide 1728 kcal and 86 gm protein which will meet 100% of kcal needs and 105% ofupper protein needs 2. Fluid provided by formula alone at goal above (1166 mlmL) is not sufficient to maintain hydration. 1. Continue free water flushes of 125 ml Q4 hours to provide total of 1916 ml Goal(s): 1. Patient to meet >75% of nutrition needs through enteral nutrition D/C Planning: PEG tube feeds Nutrition Monitoring and Evaluation: A registered dietitian will f/u as indicated to report nutrition related information and to revise the recommended nutrition intervention(s); please call with questions or concerns, thank-you. ARLEEN MERIDA RDN, LD Clinical Dietitian Office: [phone] (for hospital use only) Мария Hammond MD - 03/17/2020 2:27 PM CSTAssociated Order(s): CONSULT PULMONARY MEDICINE Pulmonary Electronic Consult Note Reason for Consult: PNA History of Present Illness Anam Baker is a 84 year old male with PMH CVA, dementia, PEG-dependent admitted from [place] w/ AHRF + sepsis 2/2 PNA; per chart review, patient recently treated for PNA w/ oral fluroquinolone for PNA. is interested in comfort measures. Per chart review, patient is on broad-spectrum abx w/ vancomycin, zosyn, levaquin. He is on sytemic AC w/ Eliquis. No evidence of PE on CT. Influenza and COVID testing negative. Current Medications Current Facility-Administered Medications Medication Dose Route Frequency Last Rate Last Admin acetaminophen (TYLENOL) tablet 650 mg 650 mg Oral Q6HPRN 650 mg at 03/16/20 2146 apixaban (ELIQUIS) tablet 5 mg 5 mg Enteral BID 5 mg at 03/17/20 0844 levoFLOXacin in D5W (LEVAQUIN) 750 mg/150 mL Piggyback 750 mg 750 mg IV Piggyback Q24H ABX 750 mg at 03/16/20 1736 ondansetron (ZOFRAN (PF)) injection 4 mg 4 mg Slow IV Push Q6HPRN piperacillin-tazobactam (ZOSYN) 3.375 g in NaCl 0.9% (NS) 100 mL MINI-BAG 3.375 g IV Piggyback Q6H ABX 3.375 g at 03/17/20 1244 vancomycin (VANCOCIN) 1,000 mg in NaCl 0.9% (NS) 250 mL VIAL-MATE IV piggyback 1,000 mg IV Piggyback Q12H ABX 1,000 mg at 03/17/20 0844 Past Medical History Past Medical History: Diagnosis Date Stroke Past Surgical History: Procedure Laterality Date JOINT SURGERY Family History Family history unknown: Yes Social History Socioeconomic History Marital status: Spouse name: Not on file Number of children: Not on file Years of education: Not on file Highest education level: Not on file Occupational History Occupation: retired Social Needs Financial resource strain: Not on file Food insecurity Worry: Not on file Inability: Not on file Transportation needs Medical: Not on file Non-medical: Not on file Tobacco Use Smoking status: Never Smoker Smokeless tobacco: Never Used Substance and Sexual Activity Alcohol use: Not Currently Drug use: Not on file Sexual activity: Not on file Lifestyle Physical activity Days per week: Not on file Minutes per session: Not on file Stress: Not on file Relationships Social connections Talks on phone: Not on file Gets together: Not on file Attends anglican service: Not on file Active member of club or organization: Not on file Attends meetings of clubs or organizations: Not on file Relationship status: Not on file Intimate partner violence Fear of current or ex partner: Not on file Emotionally abused: Not on file Physically abused: Not on file Forced sexual activity: Not on file Other Topics Concern Not on file Social History Narrative Patient at [facility] Allergies: Patient has no known allergies. Immunizations: There is no immunization history on file for this patient. Review of Systems: Unable to perform Physical Exam and Objective Data BP 112/60 | Pulse 83 | Temp 36.9 C (98.5 F) | Resp 20 | Wt 150 lb (68 kg) | SpO2 92% Unable to perform Laboratory CBC BMP LFTs WBC (10*3/L) Date Value 03/17/2020 16.37 (H) NA (mmol/L) Date Value 03/17/2020 135 ALK PHOS (U/L) Date Value 03/16/2020 116 HGB (g/dL) Date Value 03/17/2020 10.5 (L) K (mmol/L) Date Value 03/17/2020 3.9 ALTv (U/L) Date Value 03/16/2020 64 (H) HCT (%) Date Value 03/17/2020 32.0 (L) CALCIUM (mg/dL) Date Value 03/17/2020 8.6 AST(SGOT) (U/L) Date Value 03/16/2020 43 (H) PLT (10*3/L) Date Value 03/17/2020 384 (H) CL (mmol/L) Date Value 03/17/2020 95 (L) RBC (10*6/L) Date Value 03/17/2020 3.34 (L) BUN (mg/dL) Date Value 03/17/2020 24 (H) Cardio CREATININE (mg/dL) Date Value 03/17/2020 0.60 No results found for: NTBNP Thyroid No results found for: TSH No components found for: GLUC RESULTS REVIEWED: CT thorax 03/16/20: FINDINGS: PULMONARY ARTERIES: Contrast bolus timing is excellent for evaluation of pulmonary arterial vasculature. There is no acute or chronic pulmonary embolism to the proximal to mid segmental level. Normal caliber of main pulmonary artery. CHEST: Lower neck/thyroid: Unremarkable. Lungs: Mild groundglass opacities with tree-in-bud nodularity are noted in the posterior left upper lobe and superior portions of left upper lobe (for example 11:53). Few additional nodular densities are scattered throughout the lung bases. Subcentimeter calcified granuloma within the right upper lobe. Bibasilar subsegmental and dependent atelectasis. Evidence of mucus plugging within the left lower lobe resulting in subsegmental atelectasis and air bronchograms. Solid nodule in the left lower lobe measures 7 mm (11:29). Central airway: Central airways are patent. Pleura: No pleural effusion, thickening or pneumothorax. Thoracic aorta and great vessels: The normal three vessel branching pattern is identified off of the aortic arch. The aorta is normal in diameter. Moderate atherosclerotic disease affects the aorta and its primary branches. Pulmonary arteries: Normal in caliber. Heart and pericardium: Mild to moderate coronary arterial calcifications most prominent within the LAD distribution. No pericardial effusion. Mediastinum and lymph nodes: No enlarged thoracic lymph nodes. Thoracic spine and chest wall: Unremarkable, with normal thoracic vertebral body heights. 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 Visualized upper abdomen: Right anterior liver lobe hepatic cyst measuring 3.5 cm in diameter (11:96). Low attenuated left renal cortical cystic structure measures 5.0 cm in diameter with central density higher than simple fluid, technically indeterminate but likely representing a hemorrhagic or proteinaceous cyst. IMPRESSION No acute pulmonary embolism through the proximal to mid segmental level. Scattered areas of groundglass opacities and tree-in-bud nodularity in the left upper and lower lobes concerning for infection. Few additional groundglass opacity is seen elsewhere in the lung bases. Follow to resolution. Bilateral dependent and subsegmental atelectasis with prominent mucus plugging in the left lower lobe. More specifically, the segmental and subsegmental bronchi supplying the left lower lobe appear filled with hyperattenuating material and/or mucous. Attention on follow-up. Consider bronchoscopy if clinically indicated to exclude possibility of underlying mass. Right liver lobe hepatic cyst measuring 3.5 cm in diameter. Partially visualized left renal cyst measuring 5.0 cm with central density higher than simple fluid, technically indeterminate. If clinically concerned, a nonemergent abdominopelvic CT/MRI with renal mass protocol may be obtained for further evaluation. Assessment & Plan Anma Baker is a 84 year old male with # AHRF on 4L NC 2/2 PNA +/- Aspiration # s/p CVA, PEG-dependent -Consider MRSA nares to guide abx therapy; good negative predictive value, so could DC vanc if negative. Given recent abx exposure/risk for MDR organisms, patient is on broad spectrum coverage w/ levaquin/zosyn/vancomycin at this time. Infectious disease consulted. Depending on clinical course, can narrow abx therapy. Influenza and COVID testing negative. No evidence of PE on CT, on systemic AC w/ Eliquis -CT chest notes the presence of mucus plugging in LLL w/ concern for possible obstructive process (i.e. lung mass?); depending on patient's clinical course/GOC, can repeat CT scan as OP to ensure resolution. No prior CT results available for comparison. -Suggest pulmonary toilet (metanebs, vest therapy, hypersal, etc) given evidence of mucus plugging on CT chest; suspect based on chart review, patient w/ ongoing aspiration of secretions -Patient MPOA has expressed that she would prefer non-aggressive medical interventions (DNR); can try HFNC if respiratory status worsens (would avoid BiPAP given c/f aspiration of secretions). Thank you for this interesting consult. Discussed w/ Dr. Au. Мария Medina MD Fellow, [facility] Pulmonary & Critical Care Medicine Pager: [phone] [employer] Associated attestation - Erwin Au MD - 03/18/2020 12:11 PM CSTOn 03/17/2020 discuss with and I agree with Dr. Medina' note as written. I actively participated in the decision-making process. Please see the fellow's note for additionaldetails.documented in this encounter ED Notes Murray, Tiffany E, RN - 03/16/2020 8:40 AM CSTPt presented from Intermediate sent over for worsening pneumonia. Pt has been in [facility] for 5 weeks for stroke and meningitis. Pt was dx with pneumonia and sent to [facility] 3 days ago. Staff reports that patient now requiring oxygen and Sat 88% on RA. Dounebs given by EMS with significant improvement. Nino Tipton DO - 03/16/2020 8:35 AM CST EMERGENCY DEPARTMENT ENCOUNTER [facility] Patient Name: Anam Baker Date of : 1935 84 year old Exam Room:10/[facility] Primary Care Physician: No primary care provider on file. Pre- Hospital Patient Escorted by: Self [9] Mode of Arrival: EMS - [place] [[id number]] EMS Treatment Prior to ED Arrival: [employer]AM[employer] RAILROAD treatment: Antipyretic Chief Complaint No chief complaint on file. HPI 84-year-old male presenting with fever, cough, hypoxia. Patient was recently discharged with bilateral pneumonia as well as concern for meningitis. He has been treated with Levaquin outpatient and [facility] They reportedly found him hypoxic and put him on oxygen called EMS. He reportedly had a fever and was given Tylenol. On arrival per EMS he was afebrile. Patient is disoriented at baseline. He has a Melissa and PEG tube in place. Audible rhonchi on exam. Past Medical History / Immunizations Past Medical History: Diagnosis Date Stroke Tetanus received in last 5 years: Yes Childhood immunizations: Up-to-date Past Surgical History Past Surgical History: Procedure Laterality Date JOINT SURGERY Allergies No Known Allergies Social History Tobacco Use Never smoked or used smokeless tobacco. Alcohol Use Not Currently. Review of Systems Review of Systems Unable to perform ROS: Dementia Physical Exam BP 107/74 | Pulse 96 | Temp 37.2 C (99 F) (Temporal Artery) | Resp 24 | Wt 68 kg (150 lb) |SpO2 91% Physical Exam Vitals signs and nursing note reviewed. Constitutional: Appearance: He is well-developed. HENT: Head: Normocephalic and atraumatic. Eyes: General: No scleral icterus. Conjunctiva/sclera: Conjunctivae normal. Pupils: Pupils are equal, round, and reactive to light. Neck: Musculoskeletal: Normal range of motion and neck supple. Vascular: No JVD. Cardiovascular: Rate and Rhythm: Normal rate and regular rhythm. Heart sounds: Normal heart sounds. Pulmonary: Effort: Pulmonary effort is normal. Breath sounds: No stridor. Rhonchi present. Abdominal: General: The ostomy site is clean. Bowel sounds are normal. Palpations: Abdomen is soft. Musculoskeletal: Normal range of motion. Skin: General: Skin is warm and dry. Neurological: Mental Status: He is alert. He is disoriented. Comments: Contracted Psychiatric: Behavior: Behavior normal. Thought Content: Thought content normal. Cognition and Memory: Cognition is impaired. Memory is impaired. Labs Recent Results (from the past 24 hour(s)) Lactic Acid Whole Blood Collection Time: 03/16/20 8:57 AM Result Value Ref Range LACTIC ACID 1.05 mmol/L Blood Culture - Peripheral # 1 Collection Time: 03/16/20 8:58 AM Specimen: VENOUS; Blood Result Value Ref Range Blood Culture-Aerobic Culture In Progress No growth Blood Culture-Anaerobic Culture In Progress No growth CBC WITH DIFF Collection Time: 03/16/20 8:58 AM Result Value Ref Range WBC 25.22 (H) 4.20 - 10.70 10*3/L RBC 3.87 (L) 4.26 - 5.52 10*6/L HGB 12.1 (L) 12.2 - 16.4 g/dL HCT 36.6 (L) 38.4 - 49.3 % MCV 94.6 81.7 - 95.6 fL MCH 31.3 26.1 - 32.7 pg MCHC 33.1 31.2 - 35.0 g/dL RDW-SD 46.7 38.5 - 51.6 fL RDW-CV 13.6 12.1 - 15.4 % PLT 469 (H) 150 - 328 10*3/L MPV 10.2 9.8 - 13.0 fL NRBC/100 WBC 0.0 0.0 - 10.0 /100 WBCs NRBC x10^3 <0.01 10*3/L GRAN MAT (NEUT) % 87.3 % IMM GRAN % 1.20 % LYMPH % 5.7 % MONO % 4.7 % EOS % 0.6 % BASO % 0.5 % GRAN MAT x10^3(ANC) 22.00 (H) 1.99 - 6.95 10*3/uL IMM GRAN x10^3 0.30 (H) 0.00 - 0.06 10*3/uL LYMPH x10^3 1.45 1.09 - 3.23 10*3/uL MONO x10^3 1.19 (H) 0.36 - 1.02 10*3/uL EOS x10^3 0.15 0.06 - 0.53 10*3/uL BASO x10^3 0.13 (H) 0.01 - 0.09 10*3/uL COMP. METABOLIC PANEL (13147) Collection Time: 03/16/20 8:58 AM Result Value Ref Range NA 131 (L) 135 - 145 mmol/L K 5.0 3.5 - 5.0 mmol/L CL 90 (L) 98 - 108 mmol/L CO2 TOTAL 34 (H) 23 - 31 mmol/L AGAP 7 2 - 16 BUN 32 (H) 7 - 23 mg/dL GLUCOSE 131 (H) 70 - 110 mg/dL CREATININE 0.62 0.60 - 1.25 mg/dL TOTAL BILI 0.5 0.1 - 1.1 mg/dL CALCIUM 8.7 8.6 - 10.6 mg/dL T PROTEIN 6.2 (L) 6.3 - 8.2 g/dL ALBUMIN 3.1 (L) 3.5 - 5.0 g/dL ALK PHOS 116 34 - 122 U/L ALTv 64 (H) 5 - 50 U/L AST(SGOT) 43 (H) 13 - 40 U/L eGFR Calculation (Non-) 123.9 mL/min/1.73m2 eGFR Calculation () 150.2 mL/min/1.73m2 URINALYSIS Collection Time: 03/16/20 8:58 AM Result Value Ref Range APPEARANCE Hazy (A) Clear COLOR Yellow Yellow PH 6.0 4.8 - 8.0 SP GRAVITY 1.025 1.003 - 1.030 GLU U QUAL Normal Normal BLOOD Negative Negative KETONES Negative Negative PROTEIN 30 mg/dL (A) Negative UROBILIN 2.0 mg/dL (A) Normal BILIRUBIN Negative Negative NITRITE Negative Negative LEUK IVAN Negative Negative RBC/HPF 18 (H) 0 - 3 HPF WBC/HPF 4 0 - 5 HPF BACTERIA Few (A) Negative MUCOUS Slight (A) Negative LPF SQ EPITH 1 HPF HYAL CAST 1 <=2 LPF GRAN CASTS 1 <=1 LPF ADC,CLC OR LCC ONLY - INFLUENZA A & B DIRECT ANTIGEN Collection Time: 03/16/20 8:58 AM Specimen: NASOPHARYNGEAL SWAB Result Value Ref Range Influenza A Negative Negative Influenza B Negative Negative COVID-19 (ID NOW RAPID TESTING) Collection Time: 03/16/20 8:58 AM Specimen: NASOPHARYNGEAL SWAB Result Value Ref Range SARS-CoV-2 Rapid ID NOW Not Detected Not Detected Blood Culture - Peripheral # 2 Collection Time: 03/16/20 9:15 AM Specimen: VENOUS; Blood Result Value Ref Range Blood Culture-Aerobic Culture In Progress No growth Blood Culture-Anaerobic Culture In Progress No growth Imaging Hospital Encounter on 03/16/20 CT CHEST PULMONARY ANGIOGRAM Narrative CT CHEST PULMONARY ANGIOGRAM HISTORY: 84 years-old; Male; PE suspected, intermediate prob, positive D-dimer COMPARISON: None. TECHNIQUE: Helical CT was performed after the administration of 100 mL iodinated intravenous contrast and reconstructed at 1.0 mm slice thickness from lung base to apices. Display field of view: 40 cm. IMAGE QUALITY: Evaluation of the study is mildly limited due to motion artifact. FINDINGS: PULMONARY ARTERIES: Contrast bolus timing is excellent for evaluation of pulmonary arterial vasculature. There is no acute or chronic pulmonary embolism to the proximal to mid segmental level. Normal caliber of main pulmonary artery. CHEST: Lower neck/thyroid: Unremarkable. Lungs: Mild groundglass opacities with tree-in-bud nodularity are noted in the posterior left upper lobe and superior portions of left upper lobe (for example 11:53). Few additional nodular densities are scattered throughout the lung bases. Subcentimeter calcified granuloma within the right upper lobe. Bibasilar subsegmental and dependent atelectasis. Evidence of mucus plugging within the left lower lobe resulting in subsegmental atelectasis and air bronchograms. Solid nodule in the left lower lobe measures 7 mm (11:29). Central airway: Central airways are patent. Pleura: No pleural effusion, thickening or pneumothorax. Thoracic aorta and great vessels: The normal three vessel branching pattern is identified off of the aortic arch. The aorta is normal in diameter. Moderate atherosclerotic disease affects the aorta and its primary branches. Pulmonary arteries: Normal in caliber. Heart and pericardium: Mild to moderate coronary arterial calcifications most prominent within the LAD distribution. No pericardial effusion. Mediastinum and lymph nodes: No enlarged thoracic lymph nodes. Thoracic spine and chest wall: Unremarkable, with normal thoracic vertebral body heights. 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 Visualized upper abdomen: Right anterior liver lobe hepatic cyst measuring 3.5 cm in diameter (11:96). Low attenuated left renal cortical cystic structure measures 5.0 cm in diameter with central density higher than simple fluid, technically indeterminate but likely representing a hemorrhagic or proteinaceous cyst. Impression No acute pulmonary embolism through the proximal to mid segmental level. Scattered areas of groundglass opacities and tree-in-bud nodularity in the left upper and lower lobes concerning for infection. Few additional groundglass opacity is seen elsewhere in the lung bases. Follow to resolution. Bilateral dependent and subsegmental atelectasis with prominent mucus plugging in the left lower lobe. More specifically, the segmental and subsegmental bronchi supplying the left lower lobe appear filled with hyperattenuating material and/or mucous. Attention on follow-up. Consider bronchoscopy if clinically indicated to exclude possibility of underlying mass. Right liver lobe hepatic cyst measuring 3.5 cm in diameter. Partially visualized left renal cyst measuring 5.0 cm with central density higher than simple fluid, technically indeterminate. If clinically concerned, a nonemergent abdominopelvic CT/MRI with renal mass protocol may be obtained for further evaluation. Preliminary Report Dictated by Resident: Zully Polanco I, Hilton Carbajal MD., have reviewed this study and agree with the above report. XR CHEST 1 VW Narrative PROCEDURE: XR CHEST 1 VW CLINICAL INDICATION: sepsis TECHNIQUE: Frontal chest radiographs were obtained. COMPARISON: None FINDINGS: Linear airspace disease within the left lower lobe probably represents atelectasis. Additional streaky opacities are seen within the right lung base. No pleural effusion or pneumothorax is seen. The heart is normal in size. Aortic arch calcifications are noted. No acute bony abnormality is noted. Impression Bibasilar airspace opacities, probably atelectasis. However, although less likely, these may represent infectious process in appropriate clinical setting. Preliminary Report Dictated by Resident: Britney Oden I, Hilton Carbajal MD., have reviewed this study and agree with the above report. Orders and Treatments Orders Placed This Encounter Procedures XR CHEST [address] CHEST PULMONARY ANGIOGRAM Blood Culture - Peripheral # 1 Blood Culture - Peripheral # 2 CBC WITH DIFF COMP. METABOLIC PANEL (53467) URINALYSIS URINE CULTURE Lactic Acid Whole Blood ADC,CLC OR LCC ONLY - INFLUENZA A & B DIRECT ANTIGEN COVID-19 (ID NOW RAPID TESTING) LAB ONLY COVID INTERPRETATION CBC with Differential Basic Metabolic Panel (NA, K, CL, CO2, GLUCOSE, BUN, CREATININE, CA) Magnesium Serum PROCALCITONIN CONSULT INFECTIOUS DISEASE CONSULT FOOD AND NUTRITION O2 Per Protocol Consult Evaluation O2 Per Protocol Orders Placed This Encounter Medications DISCONTD: piperacillin-tazobactam (ZOSYN) injection 3.375 g DISCONTD: vancomycin (VANCOCIN) injection 1,000 mg NaCl 0.9% (NS) bolus infusion 2,040 mL piperacillin-tazobactam (ZOSYN) 3.375 g in NaCl 0.9% (NS) 100 mL MINI-BAG vancomycin (VANCOCIN) 1,000 mg in NaCl 0.9% (NS) 250 mL VIAL-MATE IV piggyback DISCONTD: heparin (porcine) injection 5,000 Units acetaminophen (TYLENOL) tablet 650 mg ondansetron (ZOFRAN (PF)) injection 4 mg iohexol (OMNIPAQUE 350 BULK-100 mL) injection 100 mL levoFLOXacin in D5W (LEVAQUIN) 750 mg/150 mL Piggyback 750 mg baclofen (LIORESAL) 5 mg/mL suspension apixaban (ELIQUIS) 5 mg tablet modafiniL 200 mg tablet acetaminophen (TYLENOL) 325 mg tablet levoFLOXacin (LEVAQUIN) 500 mg tablet DISCONTD: acetaminophen (TYLENOL) tablet 325 mg apixaban (ELIQUIS) tablet 5 mg Procedures See ED Procedure Note Notes & MDM Patient was evaluated for an emergency medical condition related to No chief complaint on file. . Differential diagnoses considered by presenting complaints but not limited to: Infection, pneumonia, sepsis, Covid, hypoxia, and others. ED Course as of Mar 16 1836ThuMar 16, 2020 0925 WBC x10^3(!): 25.22 [PS] ED Course User Index [PS] Nino Calderon DO Labs:were ordered, and resulted, any relevant abnormalities were considered. Imaging:Ordered, and resulted, any relevant abnormalities were considered. IV fluids: critical presentation requiring fluid challenge Sepsis Procedures:were not performed. Assessment: 84-year-old man with sepsis secondary to bilateral pneumonia. Empiric antibiotic started for hospital-acquired pneumonia. IV fluids started however stopped after 1 L secondary to patient appearing oscar fluid overloaded. Patient admitted for further evaluation management History, physical exam findings, results of visit, differential diagnosis, medication regimens and plan of future care have been considered. Additional MDM may be found in the ED course. Differential diagnosis considered and final disposition made based on information gathered during evaluation and may not be completely ruled out or specifically listed. Vital signs were rechecked before final disposition and determined to be expected for patient's clinical condition.. Diagnosis ICD-10-CM ICD-9-CM 1. Fever, unspecified fever cause R50.9 780.60 2. Hypoxia R09.02 799.02 3. Cough R05 786.2 4. Pneumonia of both lower lobes due to infectious organism J18.9 486 Disposition & Follow Up ED Disposition ED Disposition Condition Comment Admit - Inpatient Stable Is this patient COVID positive or a patient under investigation (PUI)?: No Treatment Team: [facility] [[id number]] Primary reason for admission: Pneumonia [061637] Secondary reason for admission: Hypoxia [524904] Is (or was) this a planned re-admission?: No My concerns are:: hypoxia My concerns are:: respiratory insufficiency The risks to the patient are: morbidity or mortality in the short term The risks to the patient are: high risk of medical event Expected length of stay: At least 2 midnights Expected discharge disposition: Long-Term Facility Certification: I certify the inpatient services are medically necessary and in accordance with Medicare regulations. Current Discharge Medication List STOP taking these medications acetaminophen (TYLENOL) 325 mg tablet Comments: Reason for Stopping: apixaban (ELIQUIS) 5 mg tablet Comments: Reason for Stopping: baclofen (LIORESAL) 5 mg/mL suspension Comments: Reason for Stopping: levoFLOXacin (LEVAQUIN) 500 mg tablet Comments: Reason for Stopping: modafiniL 200 mg tablet Comments: Reason for Stopping: Nino Calderon DO 03/16/2020 8:39 AM ACTIVE COVID-19 PANDEMIC. documented in this encounter Miscellaneous Notes Care Plan - Isak Calzada RN - 03/20/2020 11:56 PM [employer] Problem: Respiratory Function - Impaired Goal: Able to cough effectively Outcome: Progressing as expected Goal: Adequate oxygenation Outcome: Progressing as expected Goal: Adequate work of breathing Outcome: Progressing as expected Goal: Patent airway Outcome: Progressing as expected Problem: Pain Goal: Reduction in pain sensation Outcome: Progressing as expected Problem: Falls, Risk of Goal: Absence of falls Outcome: Progressing as expected Problem: Discharge Planning Goal: Adequate for discharge Outcome: Progressing as expected are Plan - Macey Monroy RN - 03/20/2020 8:05 PM [employer] Problem: Respiratory Function - Impaired Goal: Able to cough effectively Outcome: Progressing as expected Goal: Adequate oxygenation Outcome: Progressing as expected Goal: Adequate work of breathing Outcome: Progressing as expected Goal: Patent airway Outcome: Progressing as expected Problem: Pain Goal: Reduction in pain sensation Outcome: Progressing as expected Problem: Falls, Risk of Goal: Absence of falls Outcome: Progressing as expected Problem: Discharge Planning Goal: Adequate for discharge Outcome: Progressing as expected are Plan - Debbi Carter RN - 03/19/2020 10:27 PM [employer] Problem: Respiratory Function - Impaired Goal: Able to cough effectively Outcome: Progressing as expected Goal: Adequate oxygenation Outcome: Progressing as expected Goal: Adequate work of breathing Outcome: Progressing as expected Goal: Patent airway Outcome: Progressing as expected Problem: Pain Goal: Reduction in pain sensation Outcome: Progressing as expected Problem: Falls, Risk of Goal: Absence of falls Outcome: Progressing as expected Problem: Discharge Planning Goal: Adequate for discharge Outcome: Progressing as expected are Plan - Prudence Quintanilla RN - 03/19/2020 7:52 PM [employer] Problem: Respiratory Function - Impaired Goal: Able to cough effectively Outcome: Progressing as expected Goal: Adequate oxygenation Outcome: Progressing as expected Goal: Adequate work of breathing Outcome: Progressing as expected Goal: Patent airway Outcome: Progressing as expected Problem: Pain Goal: Reduction in pain sensation Outcome: Progressing as expected Problem: Falls, Risk of Goal: Absence of falls Outcome: Progressing as expected Problem: Discharge Planning Goal: Adequate for discharge Outcome: Progressing as expected are Plan - Isak Calzada RN - 03/19/2020 1:55 AM [employer] Problem: Respiratory Function - Impaired Goal: Able to cough effectively Outcome: Progressing as expected Goal: Adequate oxygenation Outcome: Progressing as expected Goal: Adequate work of breathing Outcome: Progressing as expected Goal: Patent airway Outcome: Progressing as expected Problem: Pain Goal: Reduction in pain sensation Outcome: Progressing as expected Problem: Falls, Risk of Goal: Absence of falls Outcome: Progressing as expected Problem: Discharge Planning Goal: Adequate for discharge Outcome: Progressing as expected [employer] Nursing Note - Ramila Vargas RN - 03/18/2020 5:47 PM CSTTube feeding increased to target rate at 60ml/hr are Plan - Kimberly Ley RN - 03/18/2020 9:19 AM [employer] Problem: Respiratory Function - Impaired Goal: Able to cough effectively Outcome: Progressing as expected Goal: Adequate oxygenation Outcome: Progressing as expected Goal: Adequate work of breathing Outcome: Progressing as expected Goal: Patent airway Outcome: Progressing as expected Problem: Pain Goal: Reduction in pain sensation Outcome: Progressing as expected Problem: Falls, Risk of Goal: Absence of falls Outcome: Progressing as expected Problem: Discharge Planning Goal: Adequate for discharge Outcome: Progressing as expected are Plan - Loly Pearce RN - 03/17/2020 8:14 PM [employer] Problem: Respiratory Function - Impaired Goal: Able to cough effectively Outcome: Progressing as expected Goal: Adequate oxygenation Outcome: Progressing as expected Goal: Adequate work of breathing Outcome: Progressing as expected Goal: Patent airway Outcome: Progressing as expected Problem: Pain Goal: Reduction in pain sensation Outcome: Progressing as expected Problem: Falls, Risk of Goal: Absence of falls Outcome: Progressing as expected Problem: Discharge Planning Goal: Adequate for discharge Outcome: Progressing as expected are Plan - Kimberly Ley RN - 03/17/2020 12:54 AM [employer] Problem: Respiratory Function - Impaired Goal: Able to cough effectively Outcome: Progressing as expected Goal: Adequate oxygenation Outcome: Progressing as expected Goal: Adequate work of breathing Outcome: Progressing as expected Goal: Patent airway Outcome: Progressing as expected Problem: Pain Goal: Reduction in pain sensation Outcome: Progressing as expected Problem: Falls, Risk of Goal: Absence of falls Outcome: Progressing as expected Problem: Discharge Planning Goal: Adequate for discharge Outcome: Progressing as expected are Plan - Loly Pearce RN - 03/16/2020 8:57 PM [employer] Problem: Respiratory Function - Impaired Goal: Able to cough effectively Outcome: Progressing as expected Goal: Adequate oxygenation Outcome: Progressing as expected Goal: Adequate work of breathing Outcome: Progressing as expected Goal: Patent airway Outcome: Progressing as expected Problem: Pain Goal: Reduction in pain sensation Outcome: Progressing as expected Problem: Falls, Risk of Goal: Absence of falls Outcome: Progressing as expected Problem: Discharge Planning Goal: Adequate for discharge Outcome: Progressing as expected [employer] documented in this encounter Plan of Treatment Health Maintenance Due Date Last Done Comments Depression Screening 1947 DTaP,Tdap,and Td Vaccines (1 - Tdap) 07[birth year]05/1954 Zoster Recombinant Vaccine (SHINGRIX) (1 of 2) 1986 Medicare Wellness Visit 2001 PNEUMOCOCCAL VACCINES 65+ (1 of 1 - PPSV23) 2001 INFLUENZA VACCINE (#1) 2019 documented as of this encounter Procedures Procedure Name Priority Date/Time Associated Comments Diagnosis CBC WITH DIFF Routine 03/20/2020 2:01 Results fo r this AM [employer] procedure are i n the results section. COMP. METABOLIC PANEL Routine 03/20/2020 2:01 Re sults for this ([id number]) AM [employer] procedure are i n the results section. CBC WITH DIFF Routine 03/19/2020 3:50 Results fo r this AM [employer] procedure are i n the results section. BASIC METABOLIC PANEL Routine 03/19/2020 3:50 Re sults for this (NA, K, CL, CO2, AM [employer] procedure a re in GLUCOSE, BUN, the results CREATININE, CA) section. MRSA / MSSA SCREEN BY Routine 03/18/2020 10:03 Re sults for this PCR, NARES AM [employer] procedure are i n the results section. CBC WITH DIFF Routine 03/18/2020 3:40 Results fo r this AM [employer] procedure are i n the results section. COMP. METABOLIC PANEL Routine 03/18/2020 3:40 Re sults for this ([id number]) AM [employer] procedure are i n the results section. VANCOMYCIN TROUGH Routine 03/17/2020 7:32 Result s for this PM [employer] procedure are i n the results section. PROCALCITONIN Routine 03/17/2020 5:38 Results fo r this AM [employer] procedure are i n the results section. CBC WITH DIFF Routine 03/17/2020 5:37 Results fo r this AM [employer] procedure are i n the results section. BASIC METABOLIC PANEL Routine 03/17/2020 5:37 Re sults for this (NA, K, CL, CO2, AM [employer] procedure a re in GLUCOSE, BUN, the results CREATININE, CA) section. MAGNESIUM Routine 03/17/2020 5:37 Results for this AM [employer] procedure are i n the results section. CT CHEST PULMONARY STAT 03/16/2020 11:20 Pneumonia of both Results for this ANGIOGRAM AM [employer] lower lobes due to procedure are in infectious organism the resu lts section. NOTICE OF PRIVACY Routine 03/16/2020 9:34 PRACTICES AM [employer] CONSENT/REFUSAL FOR Routine 03/16/2020 9:34 DIAGNOSIS AND TREATMENT AM [employer] XR CHEST 1 VW STAT 03/16/2020 9:16 Fever, unspecified Resu lts for this AM [employer] fever cause procedure are i n the results section. BLOOD CULTURE SCREEN STAT 03/16/2020 9:15 Fever, unspecifi ed Results for this AM [employer] fever cause procedure are i n the results section. LAB ONLY COVID Routine 03/16/2020 8:58 Fever, unspecified Res ults for this INTERPRETATION AM [employer] fever cause procedure are in the results section. COVID-19 (ID NOW RAPID STAT 03/16/2020 8:58 Fever, unspeci fied Results for this TESTING) AM [employer] fever cause procedure are i n the results section. ADC,CLC OR LCC ONLY - STAT 03/16/2020 8:58 Fever, unspecif ied Results for this INFLUENZA A & B DIRECT AM [employer] fever cause proce dure are in ANTIGEN the results section. URINE CULTURE STAT 03/16/2020 8:58 Fever, unspecified Resu lts for this AM [employer] fever cause procedure are i n the results section. URINALYSIS STAT 03/16/2020 8:58 Fever, unspecified Resul ts for this AM [employer] fever cause procedure are i n the results section. CBC WITH DIFF STAT 03/16/2020 8:58 Fever, unspecified Resu lts for this AM [employer] fever cause procedure are i n the results section. COMP. METABOLIC PANEL STAT 03/16/2020 8:58 Fever, unspecif ied Results for this ([id number]) AM [employer] fever cause procedure are i n the results section. BLOOD CULTURE SCREEN STAT 03/16/2020 8:58 Fever, unspecifi ed Results for this AM [employer] fever cause procedure are i n the results section. LACTIC ACID WHOLE BLOOD STAT 03/16/2020 8:57 Fever, unspec ified Results for this AM [employer] fever cause procedure are i n the results section. EMERGENCY DEPARTMENT Routine 03/16/2020 12:01 DOCUMENTS AM [employer] documented in this encounter Results COMP. METABOLIC PANEL ([id number]) (03/20/2020 2:01 AM [employer]) NA 135 135 - 145 [facility] mmol/L [facility] K 4.5 3.5 - 5.0 [facility] mmol/L [facility] CL 101 98 - 108 mmol/L [facility] CO2 TOTAL 30 23 - 31 mmol/L [facility] AGAP 4 2 - 16 [facility] BUN 19 7 - 23 mg/dL [facility] GLUCOSE 127 (H) 70 - 110 mg/dL [facility] CREATININE 0.58 (L) 0.60 - 1.25 [facility] mg/dL [facility] TOTAL BILI 0.4 0.1 - 1.1 mg/dL [facility] CALCIUM 8.4 (L) 8.6 - 10.6 [facility] mg/dL HOSPITAL [facility] T PROTEIN 4.8 (L) 6.3 - 8.2 g/dL [facility] ALBUMIN 2.4 (L) 3.5 - 5.0 g/dL [facility] ALK PHOS 112 34 - 122 U/L [facility] ALTv 125 (H) 5 - 50 U/L [facility] AST(SGOT) 71 (H) 13 - 40 U/L [facility] eGFR Calculation 133.8 mL/min/1.73m2 [facility] ([facility] [place]) eGFR Calculation 162.2 mL/min/1.73m2 [facility] () [facility] Specimen Blood - LINE, VENOUS Narrative Performed At [facility] of Glomerular Filtration Rate (GFR) [facility] and Staging of Kidney Disease* + + +- + | GFR (mL/min/1.73 m2) | With Kidney Damage | Without Kidney Damage + + +- + | >90 | Stage one | Normal + + +- + | 60-89 | Stage two | Decreased GFR + + +- + | 30-59 | Stage three | Stage three + + +- + | 15-29 | Stage four | Stage four + + +- + | <15 (or dialysis) | Stage five | Stage five + + +- + *Each stage assumes the associated GFR level has been in effect for at least three months. Stages 1 to 5, with or without kidney disease, indicate chronic kidney disease. Notes: Determination of stages one and two (with eGFR >59mL/min/1.73 m2) requires estimation of kidney damage for at least three months as defined by structural or functional abnormalities of the kidney, manifested by either: Pathological abnormalities or Markers of kidney damage (including abnormalities in the composition of the blood or urine or abnormalities in imaging tests). Performing Organization Address City/State/Zipcode Phone Number [facility] CLIA: [id number] [place] [address] CBC WITH DIFF (03/20/2020 2:01 AM [employer]) Pathologist Sig nature WBC 14.15 (H) 4.20 - 10.70 [facility] 10*3/L [facility] RBC 3.73 (L) 4.26 - 5.52 [facility] 10*6/L [facility] HGB 11.6 (L) 12.2 - 16.4 [facility] g/dL [facility] HCT 35.5 (L) 38.4 - 49.3 % [facility] MCV 95.2 81.7 - 95.6 fL [facility] MCH 31.1 26.1 - 32.7 pg [facility] MCHC 32.7 31.2 - 35.0 [facility] g/dL [facility] RDW-SD 47.4 38.5 - 51.6 fL [facility] RDW-CV 13.8 12.1 - 15.4 % [facility] PLT 471 (H) 150 - 328 [facility] 10*3/L [facility] MPV 9.9 9.8 - 13.0 fL [facility] NRBC/100 WBC 0.0 0.0 - 10.0 /100 [facility] WBCs [facility] NRBC x10^3 <0.01 10*3/L [facility] GRAN MAT (NEUT) % 77.9 % [facility] IMM GRAN % 2.00 % [facility] LYMPH % 10.0 % [facility] MONO % 5.9 % [facility] EOS % 3.7 % [facility] BASO % 0.5 % [facility] GRAN MAT x10^3(ANC) 11.01 (H) 1.99 - 6.95 [facility] 10*3/uL [facility] IMM GRAN x10^3 0.29 (H) 0.00 - 0.06 [facility] 10*3/uL [facility] LYMPH x10^3 1.42 1.09 - 3.23 [facility] 10*3/uL HOSPITAL LABORATORY MONO x10^3 0.84 0.36 - 1.02 [facility] 10*3/uL HOSPITAL LAB[facility]ATORY EOS x10^3 0.52 0.06 - 0.53 [facility] 10*3/uL [facility] BASO x10^3 0.07 0.01 - 0.09 [facility] 10*3/uL [facility] Specimen Blood - LINE, VENOUS Performing Organization Address City/State/Zipcode Phone Number [facility] CLIA: [id number] [place], [place] [id number] LABORATORY [address] BASIC METABOLIC PANEL (NA, K, CL, CO2, GLUCOSE, BUN, CREATININE, CA) (03/19/2020 3:50 AM [employer]) NA 136 135 - 145 [facility] mmol/L [facility] K 4.1 3.5 - 5.0 [facility] mmol/L [facility] CL 100 98 - 108 mmol/L [facility] CO2 TOTAL 31 23 - 31 mmol/L [facility] AGAP 5 2 - 16 [facility] BUN 19 7 - 23 mg/dL [facility] GLUCOSE 121 (H) 70 - 110 mg/dL [facility] CREATININE 0.59 (L) 0.60 - 1.25 [facility] mg/dL [facility] CALCIUM 8.5 (L) 8.6 - 10.6 [facility] mg/dL [facility] eGFR Calculation 131.2 mL/min/1.73m2 [facility] (Non[facility] [place]) eGFR Calculation 159.0 mL/min/1.73m2 [facility] () [facility] Specimen Blood - ARM, RIGHT Narrative Performed At [facility] of Glomerular Filtration Rate (GFR) [facility] and Staging of Kidney Disease* + + +- + | GFR (mL/min/1.73 m2) | With Kidney Damage | Without Kidney Damage + + +- + | >90 | Stage one | Normal + + +- + | 60-89 | Stage two | Decreased GFR + + +- + | 30-59 | Stage three | Stage three + + +- + | 15-29 | Stage four | Stage four + + +- + | <15 (or dialysis) | Stage five | Stage five + + +- + *Each stage assumes the associated GFR level has been in effect for at least three months. Stages 1 to 5, with or without kidney disease, indicate chronic kidney disease. Notes: Determination of stages one and two (with eGFR >59mL/min/1.73 m2) requires estimation of kidney damage for at least three months as defined by structural or functional abnormalities of the kidney, manifested by either: Pathological abnormalities or Markers of kidney damage (including abnormalities in the composition of the blood or urine or abnormalities in imaging tests). Performing Organization Address City/State/Zipcode Phone Number [facility] CLIA: [id number] [place] [address] LAB[address] CBC WITH DIFF (03/19/2020 3:50 AM [employer]) Pathologist Sig nature WBC 12.44 (H) 4.20 - 10.70 [facility] 10*3/L HOSPITAL LABORATORY RBC 3.61 (L) 4.26 - 5.52 [facility] 10*6/L HOSPITAL LABORATORY HGB 11.1 (L) 12.2 - 16.4 [facility] g/dL [facility] HCT 34.9 (L) 38.4 - 49.3 % [facility] MCV 96.7 (H) 81.7 - 95.6 fL [facility] MCH 30.7 26.1 - 32.7 pg [facility] MCHC 31.8 31.2 - 35.0 [facility] g/dL [facility] RDW-SD 48.1 38.5 - 51.6 fL [facility] RDW-CV 13.4 12.1 - 15.4 % [facility] PLT 456 (H) 150 - 328 [facility] 10*3/L [facility] MPV 10.3 9.8 - 13.0 fL [facility] NRBC/100 WBC 0.0 0.0 - 10.0 /100 [facility] WBCs [facility] NRBC x10^3 <0.01 10*3/L [facility] GRAN MAT (NEUT) % 78.9 % [facility] IMM GRAN % 1.80 % [facility] LYMPH % 9.6 % [facility] MONO % 6.4 % [facility] EOS % 2.7 % [facility] BASO % 0.6 % [facility] GRAN MAT x10^3(ANC) 9.83 (H) 1.99 - 6.95 [facility] 10*3/uL HOSPITAL LABORATORY IMM GRAN x10^3 0.22 (H) 0.00 - 0.06 [facility] 10*3/uL HOSPITAL LABORATORY LYMPH x10^3 1.19 1.09 - 3.23 [facility] 10*3/uL HOSPITAL LAB[facility]ATORY MONO x10^3 0.79 0.36 - 1.02 [facility] 10*3/uL HOSPITAL LABORATORY EOS x10^3 0.34 0.06 - 0.53 [facility] 10*3/uL HOSPITAL LAB[facility]ATORY BASO x10^3 0.07 0.01 - 0.09 [facility] 10*3/uL [facility] Specimen Blood - ARM, RIGHT Performing Organization Address City/State/Zipcode Phone Number [facility] CLIA: [id number] [place] [address] MRSA / MSSA SCREEN BY PCR, NARES (03/18/2020 10:03 AM [employer]) Pathologist Sig nature MRSA Screen by PCR, Negative Negative [facility] [employer] MSSA Screen by PCR, Negative Negative [facility] [employer] MRSA/MSSA Positive? No No [facility] SERVICES Specimen Swab - NARES, BOTH SIDES Performing Organization Address City/State/Zipcode Phone Number [facility] [facility] CLIA: [id number] [place] [address] [place] [address] COMP. METABOLIC PANEL (23231) (03/18/2020 3:40 AM [employer]) NA 135 135 - 145 [facility] mmol/L [facility] K 4.2 3.5 - 5.0 [facility] mmol/L [facility] CL 99 98 - 108 mmol/L [facility] CO2 TOTAL 31 23 - 31 mmol/L [facility] AGAP 5 2 - 16 [facility] BUN 18 7 - 23 mg/dL [facility] GLUCOSE 117 (H) 70 - 110 mg/dL [facility] CREATININE 0.59 (L) 0.60 - 1.25 [facility] mg/dL [facility] TOTAL BILI 0.4 0.1 - 1.1 mg/dL [facility] CALCIUM 8.2 (L) 8.6 - 10.6 [facility] mg/dL [facility] T PROTEIN 4.6 (L) 6.3 - 8.2 g/dL [facility] ALBUMIN 2.3 (L) 3.5 - 5.0 g/dL [facility] ALK PHOS 88 34 - 122 U/L [facility] ALTv 77 (H) 5 - 50 U/L [facility] AST(SGOT) 67 (H) 13 - 40 U/L [facility] eGFR Calculation 131.2 mL/min/1.73m2 [facility] (Non-[facility] [place]) eGFR Calculation 159.0 mL/min/1.73m2 [facility] () [facility] Specimen Blood - ARM, RIGHT Narrative Performed At Association of Glomerular Filtration Rate (GFR) [facility] and Staging of Kidney Disease* + + +- + | GFR (mL/min/1.73 m2) | With Kidney Damage | Without Kidney Damage + + +- + | >90 | Stage one | Normal + + +- + | 60-89 | Stage two | Decreased GFR + + +- + | 30-59 | Stage three | Stage three + + +- + | 15-29 | Stage four | Stage four + + +- + | <15 (or dialysis) | Stage five | Stage five + + +- + *Each stage assumes the associated GFR level has been in effect for at least three months. Stages 1 to 5, with or without kidney disease, indicate chronic kidney disease. Notes: Determination of stages one and two (with eGFR >59mL/min/1.73 m2) requires estimation of kidney damage for at least three months as defined by structural or functional abnormalities of the kidney, manifested by either: Pathological abnormalities or Markers of kidney damage (including abnormalities in the composition of the blood or urine or abnormalities in imaging tests). Performing Organization Address City/State/Zipcode Phone Number [facility] CLIA: [id number] [place] [address] CBC WITH DIFF (03/18/2020 3:40 AM [employer]) Pathologist Sig nature WBC 12.23 (H) 4.20 - 10.70 [facility] 10*3/L [facility] RBC 3.42 (L) 4.26 - 5.52 [facility] 10*6/L [facility] HGB 10.3 (L) 12.2 - 16.4 [facility] g/dL [facility] HCT 33.0 (L) 38.4 - 49.3 % [facility] MCV 96.5 (H) 81.7 - 95.6 fL [facility] MCH 30.1 26.1 - 32.7 pg [facility] MCHC 31.2 31.2 - 35.0 [facility] g/dL HOSP[facility] RDW-SD 48.0 38.5 - 51.6 fL [facility] RDW-CV 13.6 12.1 - 15.4 % [facility] PLT 421 (H) 150 - 328 [facility] 10*3/L [facility] MPV 10.3 9.8 - 13.0 fL [facility] NRBC/100 WBC 0.0 0.0 - 10.0 /100 [facility] WBCs [facility] NRBC x10^3 <0.01 10*3/L [facility] GRAN MAT (NEUT) % 82.0 % [facility] IMM GRAN % 1.10 % [facility] LYMPH % 8.3 % [facility] MONO % 5.8 % [facility] EOS % 2.5 % [facility] BASO % 0.3 % [facility] GRAN MAT x10^3(ANC) 10.01 (H) 1.99 - 6.95 [facility] 10*3/uL [facility] IMM GRAN x10^3 0.14 (H) 0.00 - 0.06 [facility] 10*3/uL [facility] LYMPH x10^3 1.02 (L) 1.09 - 3.23 [facility] 10*3/uL [facility] MONO x10^3 0.71 0.36 - 1.02 [facility] 10*3/uL [facility] EOS x10^3 0.31 0.06 - 0.53 [facility] 10*3/uL [facility] BASO x10^3 0.04 0.01 - 0.09 [facility] 10*3/uL [facility] Specimen Blood - ARM, RIGHT Performing Organization Address City/State/Zipcode Phone Number [facility] CLIA: [id number] [place] [address] Vancomycin Trough Level - Draw immediately prior to the 2000 dose, but, no more than 60 minutes before (03/17/2020 7:32 PM [employer]) Pathologist [facility] nature VANCO TROUGH 10.4 10.0 - 20.0 ug/mL [facility] Specimen Blood - VENOUS Narrative Performed At Toxic Range: >20 ug/mL [facility] 15-20 ug/mL is recommended for severe infection or when Vancomycin BRYCE is greater than or equal to 2. Performing Organization Address City/State/Zipcode Phone Number [facility] CLIA: [id number] [place] [address] PROCALCITONIN (03/17/2020 5:38 AM [employer]) Pathologist Nelson banks Procalcitonin 0.57 (H) <0.07 ng/mL [facility] Specimen Blood - ARM, RIGHT Narrative Performed At INTERPRETATION OF PROCALCITONIN RESULTS IN ADULTS >= [address] [facility] YEARS OF AGE Initiation and discontinuation of antibiotics on patie nts with suspected or confirmed Lower Respiratory Tract Infection in Adults >= 18 years of age. + + + +----- ------ + |Procalcitonin |Interpretation |Antibiotic |Considerations |ng/mL | |recommend ation | + + + +----- ------ + | <0.1 | Bacterial | Strongly | | | infection very | discouraged | Overruling: | | unlikely | | Clinically unstable + + + + H igh risk for adverse | <0.25 | Bacterial | Discouraged | outcome | | infection | | SEE IMPORTANT NOTE | | unlikely | | + + + +----- ------ + | >=0.25 | Bacterial | Encouraged | | | infection | | | | likely | | Consider treatment failure + + + + if l evels does not decrease | >0.5 | Bacterial | Strongly | appropriately | | infection very | encouraged | | | likely | | + + + +----- ------ + Discontinuation of antibiotics in high-acuity patients with suspected or confirmed sepsis in Adults >= 18 years of age. + + + +----- ------ + |Procalcitonin |Interpretation |Antibiotic |Considerations |ng/mL | |recommend ation | + + + +----- ------ + | <0.25 | Bacterial | Strongly | | | infection very | discouraged | Overruling: | | unlikely | | Clinically unstable + + + + H igh risk for adverse | <0.5 or drop | Bacterial | Discouraged | outcome | >80% from | infection | | SEE IMPORTANT NOTE | highest PCT | unlikely | | | level | | | + + + +----- ------ + | >=0.5 | Bacterial | Encouraged | | | infection | | | | likely | | Consider treatment failure + + + + if l evels does not decrease | >1.0 | Bacterial | Strongly | appropriately | | infection very | encouraged | | | likely | | + + + +----- ------ + Percentage of drop of Procalcitonin calculation for Discontinuation of antibiotics in high-acuity patients with suspected or confirmed sepsis in Adults >= 18 years of age. Procalcitonin highest{}-Procalcitonin current{} Delta Procalcitonin = x100% Procalcitonin current {} IMPORTANT NOTE: Procalcitonin may be elevated without bacterial infection by physiologic stress related to t rauma, carty, chronic dialysis, metastatic cancer, surgery in the past seven days, malaria, some fungal infections, and some forms of vasculitis. The interpretation algorithm may not apply to patients with immunosuppression (equivalent o f >10 mg of prednisone daily), HIV with CD4 cell count < 350 cells/mm3, active malignancy on systemic chemotherapy, solid organ transplant or hematopoietic stem cell transplant ation, or hospital acquired pneumonia. Additionally, some cli nical trials of procalcitonin have excluded patients with sh ock requiring vasopressor use, acute respiratory failure requiring mechanical ventilation, or those with known lung abscess/empyema. For further information please refer to: [email or web address] Performing Organization Address City/[facility]/Zipcode Phone Number [facility] CLIA: [id number] [place] [address] [place] [address] Magnesium Serum (03/17/2020 5:37 AM [employer]) Pathologist [facility] nature MAGNESIUM 2.0 1.7 - 2.4 mg/dL [facility] Specimen Blood - ARM, RIGHT Performing Organization Address [facility]/Zipcode Phone Number [facility] CLIA: [id number] [place] [address] LABORATORY [facility] [address] Basic Metabolic Panel (NA, K, CL, CO2, GLUCOSE, BUN, CREATININE, CA) (03/17/2020 5:37 AM [employer]) Pathologist Sig nature NA 135 135 - 145 [facility] mmol/L [facility] K 3.9 3.5 - 5.0 [facility] mmol/L [facility] CL 95 (L) 98 - 108 mmol/L [facility] CO2 TOTAL 35 (H) 23 - 31 mmol/L [facility] AGAP 5 2 - 16 [facility] BUN 24 (H) 7 - 23 mg/dL [facility] GLUCOSE 126 (H) 70 - 110 mg/dL [facility] CREATININE 0.60 0.60 - 1.25 [facility] mg/dL [facility] CALCIUM 8.6 8.6 - 10.6 [facility] mg/dL [facility] eGFR Calculation 128.7 mL/min/1.73m2 [facility] (Non-[facility] LAB[facility]AT[facility] [place]) eGFR Calculation 155.9 mL/min/1.73m2 [facility] () [facility] Specimen Blood - ARM, RIGHT Narrative Performed At [facility] Glomerular Filtration Rate (GFR) [facility] and Staging of Kidney Disease* + + +- + | GFR (mL/min/1.73 m2) | With Kidney Damage | Without Kidney Damage + + +- + | >90 | Stage one | Normal + + +- + | 60-89 | Stage two | Decreased GFR + + +- + | 30-59 | Stage three | Stage three + + +- + | 15-29 | Stage four | Stage four + + +- + | <15 (or dialysis) | Stage five | Stage five + + +- + *Each stage assumes the associated GFR level has been in effect for at least three months. Stages 1 to 5, with or without kidney disease, indicate chronic kidney disease. Notes: Determination of stages one and two (with eGFR >59mL/min/1.73 m2) requires estimation of kidney damage for at least three months as defined by structural or functional abnormalities of the kidney, manifested by either: Pathological abnormalities or Markers of kidney damage (including abnormalities in the composition of the blood or urine or abnormalities in imaging tests). Performing Organization Address City/State/Zipcode Phone Number [facility] CLIA: [id number] [place] [address] CBC with Differential (03/17/2020 5:37 AM [employer]) [facility] WBC 16.37 (H) 4.20 - 10.70 [facility] 10*3/L [facility] RBC 3.34 (L) 4.26 - 5.52 [facility] 10*6/L [facility] HGB 10.5 (L) 12.2 - 16.4 [facility] g/dL [facility] HCT 32.0 (L) 38.4 - 49.3 % [facility] MCV 95.8 (H) 81.7 - 95.6 fL [facility] MCH 31.4 26.1 - 32.7 pg [facility] MCHC 32.8 31.2 - 35.0 [facility] g/dL [facility] RDW-SD 48.5 38.5 - 51.6 fL [facility] RDW-CV 13.8 12.1 - 15.4 % [facility] PLT 384 (H) 150 - 328 [facility] 10*3/L [facility] MPV 10.2 9.8 - 13.0 fL [facility] NRBC/100 WBC 0.0 0.0 - 10.0 /100 [facility] WBCs HOSPITAL LAB[facility]ATORY NRBC x10^3 <0.01 10*3/L [facility] GRAN MAT (NEUT) % 85.1 % [facility] IMM GRAN % 1.00 % [facility] LYMPH % 6.5 % [facility] MONO % 5.1 % [facility] EOS % 2.0 % [facility] BASO % 0.3 % [facility] GRAN MAT x10^3(ANC) 13.92 (H) 1.99 - 6.95 [facility] 10*3/uL [facility] IMM GRAN x10^3 0.16 (H) 0.00 - 0.06 [facility] 10*3/uL [facility]OSPITAL [facility]ORY LYMPH x10^3 1.07 (L) 1.09 - 3.23 [facility] 10*3/uL [facility] MONO x10^3 0.84 0.36 - 1.02 [facility] 10*3/uL [facility] EOS x10^3 0.33 0.06 - 0.53 [facility] 10*3/uL [facility]OSPITAL [facility] BASO x10^3 0.05 0.01 - 0.09 [facility] 10*3/uL [facility]OSPITAL LAB[facility]ORY Specimen Blood - ARM, RIGHT Performing Organization Address City/State/Zipcode Phone Number [facility] CLIA: [id number] [place] [address] CHEST PULMONARY ANGIOGRAM (03/16/2020 11:20 AM [employer]) Specimen Impressions Performed At PACS/VR/DOSE No acute pulmonary embolism through the proximal to mid segmental level. Scattered areas of groundglass opacities and tree-in-b ud nodularity in the left upper and lower lobes concerning fo r infection. Few additional groundglass opacity is seen elsewhere in the lung bases. Follow to resolution. Bilateral dependent and subsegmental ate lectasis with prominent mucus plugging in the left lower lobe. More sp ecifically, the segmental and subsegmental bronchi supplying the left lower lobe appear filled with hyperattenuating material and/or mucous. Attention on follow-up. Consider bronchoscopy if clinically indicated to exclude possib ility of underlying mass. Right liver lobe hepatic cyst measuring 3.5 cm in diameter. Partially visualized left renal cyst measuring 5.0 cm with central density higher than simple fluid, technically in determinate. If clinically concerned, a nonemergent abdominopelvic CT/MRI with re nal mass protocol may be obtained for further evaluation. Preliminary Report Dictated by Resident: Zully Polanco I, Hilton Carbajal MD., have review ed this study and agree with the above report. Narrative Performed At This result has an attachment that is no t available. CT CHEST PULMONARY ANGIOGRAM PACS/VR/DOSE HISTORY: 84 years-old; Male; PE suspected, intermediat e prob, positive D-dimer COMPARISON: None. TECHNIQUE: Helical CT was performed after the admi nistration of 100 mL iodinated intravenous contrast and reconstructed at 1. 0 mm slice thickness from lung base to apices. Display field of view: 40 cm. IMAGE QUALITY: Evaluation of the study is mildly limit ed due to motion artifact. FINDINGS: PULMONARY ARTERIES: Contrast bolus timing is excellent for evaluation of p ulmonary arterial vasculature. There is no acute or chronic pulmonary em bolism to the proximal to mid segmental level. Normal caliber of main pulmonary artery. CHEST: Lower neck/thyroid: Unremarkable. Lungs: Mild groundglass opacities with tree-in-bud nod ularity are noted in the posterior left upper lobe and superior portions of left upper lobe (for example 11:53). Few additional nodular densities are s cattered throughout the lung bases. Subcentimeter calcified granuloma with in the right upper lobe. Bibasilar subsegmental and dependent atelectasis. Evid ence of mucus plugging within the left lower lobe resulting in subse gmental atelectasis and air bronchograms. Solid nodule in the left lower lobe measures 7 mm (11: 29). Central airway: Central airways are patent. Pleura: No pleural effusion, thickening or pneumothora x. Thoracic aorta and great vessels: The normal three ves paras branching pattern is identified off of the aortic arch. The aorta is nor mal in diameter. Moderate atherosclerotic disease affects the aorta and its primary branches. Pulmonary arteries: Normal in caliber. Heart and pericardium: Mild to moderate coronary arter ial calcifications most prominent within the LAD distribution. No pericar dial effusion. Mediastinum and lymph nodes: No enlarged thoracic lymp h nodes. Thoracic spine and chest wall: Unremarkable, with norm al thoracic vertebral body heights. 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 Visualized upper abdomen: Right anterior liver lobe he patic cyst measuring 3.5 cm in diameter (11:96). Low attenuated left renal cortical cystic structure measures 5.0 cm in diameter with central den sity higher than simple fluid, technically indeterminate but likely rep resenting a hemorrhagic or proteinaceous cyst. Procedure Note [facility], Radiant Results Inft User - 2019 12:31 PM [employer] CT CHEST PULMONARY ANGIOGRAM HISTORY: 84 years-old; Male; PE suspecte d, intermediate prob, positive D-dimer COMPARISON: None. TECHNIQUE: Helical CT was performed af ter the administration of 100 mL iodinated intravenous contrast and recon structed at 1.0 mm slice thickness from lung base to apices. Display field of view: 40 cm. IMAGE QUALITY: Evaluation of the study i s mildly limited due to motion artifact. FINDINGS: PULMONARY ARTERIES: Contrast bolus timing is excellent for e valuation of pulmonary arterial vasculature. There is no acute or chroni c pulmonary embolism to the proximal to mid segmental level. Normal caliber of main pulmonary artery. CHEST: Lower neck/thyroid: Unremarkable. Lungs: Mild groundglass opacities with t ree-in-bud nodularity are noted in the posterior left upper lobe and superi or portions of left upper lobe (for example 11:53). Few additional nodular d ensities are scattered throughout the lung bases. Subcentimeter calcified granuloma within the right upper lobe. Bibasilar subsegmental and dependent ate lectasis. Evidence of mucus plugging within the left lower lobe resu lting in subsegmental atelectasis and air bronchograms. Solid nodule in the left lower lobe tono ures 7 mm (11:29). Central airway: Central airways are peck nt. Pleura: No pleural effusion, thickening or pneumothorax. Thoracic aorta and great vessels: The no rmal three vessel branching pattern is identified off of the aortic arch. Th e aorta is normal in diameter. Moderate atherosclerotic disease affects the aorta and its primary branches. Pulmonary arteries: Normal in caliber. Heart and pericardium: Mild to moderate coronary arterial calcifications most prominent within the LAD distributi on. No pericardial effusion. Mediastinum and lymph nodes: No enlarged thoracic lymph nodes. Thoracic spine and chest wall: Unremarka ble, with normal thoracic vertebral body heights. A 1.3 cm attenuating lesio n in musculature surrounding the right scapula muscle (11:50), likely a b enign lipoma. Visualized upper abdomen: Right anterior liver lobe hepatic cyst measuring 3.5 cm in diameter (11:96). Low attenuat ed left renal cortical cystic structure measures 5.0 cm in diameter wi th central density higher than simple fluid, technically indeterminate but likely representing a hemorrhagic or proteinaceous cyst. IMPRESSION No acute pulmonary embolism through the proximal to mid segmental level. Scattered areas of groundglass opacities and tree-in-bud nodularity in the left upper and lower lobes concerning fo r infection. Few additional groundglass opacity is seen elsewhere in the lung bases. Follow to resolution. Bilateral dependent and subsegmental ate lectasis with prominent mucus plugging in the left lower lobe. More sp ecifically, the segmental and subsegmental bronchi supplying the left lower lobe appear filled with hyperattenuating material and/or mucous. Attention on follow-up. Consider bronchoscopy if clinically indicated to exclude possibility of underlying mass. Right liver lobe hepatic cyst measuring 3.5 cm in diameter. Partially visualized left renal cyst radha suring 5.0 cm with central density higher than simple fluid, technically in determinate. If clinically concerned, a nonemergent abdominopelvic CT/MRI with renal mass protocol may be obtained for further evaluation. Preliminary Report Dictated by Resident: Hilton Rodas MD., have reviewe d this study and agree with the above report. Performing Organization Address City/State/Zipcode Phone Number PACS/VR/DOSE XR CHEST 1 VW (03/16/2020 9:16 AM [employer]) Specimen Impressions Performed At PACS/VR/DOSE Bibasilar airspace opacities, probably atelectasis. Ho wever, although less likely, these may represent infectious p rocess in appropriate clinical setting. Preliminary Report Dictated by Resident: Hilton Mendez MD., have review ed this study and agree with the above report. Narrative Performed At This result has an attachment that is no t available. PROCEDURE: XR CHEST 1 VW PACS/VR/DOSE CLINICAL INDICATION: sepsis TECHNIQUE: Frontal chest radiographs were obtained. COMPARISON: None FINDINGS: Linear airspace disease within the left lower lobe pro bably represents atelectasis. Additional streaky opacities are seen wit hin the right lung base. No pleural effusion or pneumothorax is seen. The heart is normal in size. Aortic arch calcification s are noted. No acute bony abnormality is noted. Procedure Note [facility], Radiant Results Inft User - 2019 9:44 AM [employer] PROCEDURE: XR CHEST 1 VW CLINICAL INDICATION: sepsis TECHNIQUE: Frontal chest radiographs wer e obtained. COMPARISON: None FINDINGS: Linear airspace disease within the left lower lobe probably represents atelectasis. Additional streaky opacitie s are seen within the right lung base. No pleural effusion or pneumothora x is seen. The heart is normal in size. Aortic arch calcifications are noted. No acute bony abnormality is noted. IMPRESSION Bibasilar airspace opacities, probably a telectasis. However, although less likely, these may represent infectious p rocess in appropriate clinical setting. Preliminary Report Dictated by Resident: Hilton Mendez MD., have reviewe d this study and agree with the above report. Performing Organization Address City/State/Zipcode Phone Number PACS/VR/DOSE Blood Culture - Peripheral # 2 (03/16/2020 9:15 AM [employer]) Blood No organisms isolated No growth [facility] Culture-Aerobic Comment: HOSPITAL Previous preliminary verifie d result was Culture In Progress on 03/16/2020 at 1301 [employer] LABORATORY Previous preliminary verifie d result was No growth at 24 hours on 03/17/2020 at 1001 [employer] Previous preliminary verifie d result was No growth at 48 hours on 03/18/2020 at 1001 [employer] Previous preliminary verifie d result was No growth at 72 hours on 03/19/2020 at 1001 [employer] Blood No organisms isolated No growth [facility] Culture-Anaerobic Comment: HOSPITAL Previous preliminary verifie d result was Culture In Progress on 03/16/2020 at 1301 [employer] [facility] Previous preliminary verifie d result was No growth at 24 hours on 03/17/2020 at 1001 [employer] Previous preliminary verifie d result was No growth at 48 hours on 03/18/2020 at 1001 [employer] Previous preliminary verifie d result was No growth at 72 hours on 03/19/2020 at 1001 [employer] Specimen Blood - VENOUS Performing Organization Address City/State/Zipcode Phone Number [facility] CLIA: [id number] [place] [address] LABORATORY [address] [facility] LAB ONLY COVID INTERPRETATION (03/16/2020 8:58 AM [employer]) COVID DMT Interpretation/Recommendations: [facility] LABO RATORY Interpretation SERVICES Molecular NAAT Tests for Active Infection with the WHITLEY S-CoV-2 Virus: This result indicates that t he patient has tested negative on one occasion for the SARS-CoV-2 virus that causes COVID-19 illness. This most likely indicates that the patient does not have an active infe ction with the SARS-CoV-2 vi zoila. However, infection is not completely ruled out as the false negative rate for molecular NAAT testing using a nasopharyngeal sample can be up to 30%, mostly dependent on the timing of sample collect ion in relation to illness onset and any deficiencies in sampling techniques. If the patient continues to have persistent or worsening symptoms concerning for COVID-19 illnes s, a repeat NAAT test (PCR, Rapid ID Now, etc.) should be performed, at which time the SARS-CoV-2 virus - if present - may have reached a detectable viral load (usually peaking by the end of the first week of symptoms). Tests for IgM and/or IgG Antibodies to SARS-CoV-2 Viru s: Testing for IgM and IgG anti bodies 1-3 weeks after illness onset will indicate whether the patient has produced antibodies to the virus. At this time, it is not known if the production of antibodies - s pecifically IgG antibodies - indicates whether the patient is immune to future infections with the SARS-CoV-2 virus. Interpretation Result Comments: These interpretation comment s are based upon aggregate COVID-19 test results pooled from [facility]. They apply to the following tests offered at [facility] and assume the acceptable specimen type(s) were used: A. Tests for the Identification of SARS-CoV-2 RNA (Mol ecular NAAT Tests): - SARS-CoV-2 PCR assays including [place] Aptima, [place] Fusion, Fuentes RealTime, and CallMiner Xpert Xpress. - SARS-CoV-2 Rapid ID NOW by the [place] NOW as say. B. Tests for the Identification of SARS-CoV-2 Antibodi es: - Chemiluminesce nt immunoassays including Access SARS-CoV-2 IgM (DXI 600), VITROS Afho-FYNE-UqV-2 IgG (Vitros 5600 and Vitros 3600), and Fuentes SARS-CoV-2 IgG (INFORMATION RESOURCES MANAGER I System). These interpretations are au topopulated into JoMaJa based on computerized algorithms matching an interpretation code to the patient's set of test results, and a clinical pathologist evaluates the comments for accuracy. However, thes e comments do not consider testing a patient may have had outside of the [facility] system. If results for COVID-19 infection continue to be negative in the context of a suspected viral respiratory illness, i t is possible the patient may have an infection with another respiratory virus. Influenza testing and a respiratory pathogen panel if clinically indicated may be beneficial i n this setting. If there con tinues to be a high degree of clinical suspicion for COVID-19 illness despite multiple negative tests on nasopharyngeal specimens, then it may be necessary to test the patien t for the SARS-CoV-2 virus u sing lower respiratory tract samples (such as sputum, bronchoalveolar lavage fluid (BAL), tracheal aspirate, etc.). COVID Results SARS-CoV-2 Rapid ID NOW (no units) [facility] LABORATORY Date Value SERVICES 03/16/2020 Not Detected Specimen Swab - NASOPHARYNGEAL SWAB Performing Organization Address City/State/Zipcode Phone Number [facility] LABORATORY SERVICES CLIA: [id number] [place] [address] [place] [address] COVID-19 (ID NOW RAPID TESTING) (03/16/2020 8:58 AM [employer]) SARS-CoV-2 Rapid ID Not Detected Not Detected [facility] LABORATORY Specimen Swab - NASOPHARYNGEAL SWAB Narrative Performed At [facility] COVID-19 Assay is an isothermal nucleic [facility] LABORATORY acid amplification test intended for the qualitative detection of nucleic acid from SARS-CoV-2 viral RNA in nasopharyngeal (SOFTWARE TEST MANAGER) specimens. It is used under Emergency Use Authorization (EUA) by FDA. The limit of detection (LOD) of the assay is 125 Genome Equivalents/mL. A positive result is indicative of the presence of SARS-CoV-2 RNA. Clinical correlation with patient history and other diagnostic information is necessary to determine patient infection status. A negative (Not Detected) result does not preclude SARS-CoV-2 infection. In patients with clinical symptoms and other tests that are consistent with SARS-CoV-2 infection, negative results should be treated as presumptive negative and a new specimen should be tested with alternative PCR molecular test. Invalid: Please collect a new specimen for repeat patient testing if clinically indicated. Performing Organization Address [facility] Centercode Phone Number [facility] CLIA: [id number] [place] [address] [place] [address] [facility] OR [facility] ONLY - INFLUENZA A & B DIRECT ANTIGEN (03/16/2020 8:58 AM [employer]) Pathologist Sig nature Influenza A Negative Negative [facility] LABORATORY Influenza B Negative Negative [facility] LABORAT[facility] Specimen Swab - NASOPHARYNGEAL SWAB Performing Organization Address [facility]/Zipcode Phone Number [facility] CLIA: [id number] [place] [address] URINE CULTURE (03/16/2020 8:58 AM [employer]) Pathologist Sig nature URINE CULTURE No aerobic growth [facility] LABORATORY (< 1000 CFU/mL) SERVICES Specimen Urine - URINE, CLEAN CATCH Performing Organization Address [facility] Centerconc Phone Number [facility] LABORATORY SERVICES CLIA: [id number] [place] [address] [place] [address] URINALYSIS (03/16/2020 8:58 AM [employer]) APPEARANCE Hazy (A) Clear [facility] COLOR Yellow Yellow [facility] PH 6.0 4.8 - 8.0 [facility] SP GRAVITY 1.025 1.003 - 1.030 [facility] LABORAT[facility] GLU U QUAL Normal Normal [facility] LABORAT[facility] BLOOD NegativeComment: Negative [facility] INTERFERENCE FROM HOSPITAL LABORATORY ASCORBIC ACID MAY CAUSE FALSE NEGATIVE RESULT KETONES Negative Negative [facility] LABORAT[facility] PROTEIN 30 mg/dL (A) Negative [facility] LAB[facility] UROBILIN 2.0 mg/dL (A) Normal [facility] LAB[facility] BILIRUBIN Negative Negative [facility] LAB[facility] NITRITE Negative Negative [facility] LABORAT[facility] LEUK IVAN Negative Negative [facility] LABOR[facility] RBC/HPF 18 (H) 0 - 3 HPF [facility] LABORATORY WBC/HPF 4 0 - 5 HPF [facility] LABORAT[facility] BACTERIA Few (A) Negative [facility] LAB[facility] MUCOUS Slight (A) Negative LPF [facility] LAB[facility] SQ EPITH 1 HPF [facility] LAB[facility] HYAL CAST 1 <=2 LPF [facility] LAB[facility] GRAN CASTS 1 <=1 LPF [facility] LABORATORY Specimen Urine - URINE, CLEAN CATCH Performing Organization Address City/State/Zipcode Phone Number [facility] CLIA: [id number] [place] [address] COMP. METABOLIC PANEL (45650) (03/16/2020 8:58 AM [employer]) Pathologist Sig nature NA 131 (L) 135 - 145 [facility] mmol/L [facility] LABORATORY K 5.0 3.5 - 5.0 [facility] mmol/L [facility] LABORATORY CL 90 (L) 98 - 108 mmol/L [facility] CO2 TOTAL 34 (H) 23 - 31 mmol/L [facility] LAB[facility] AGAP 7 2 - 16 [facility] BUN 32 (H) 7 - 23 mg/dL [facility] LAB[facility] GLUCOSE 131 (H) 70 - 110 mg/dL [facility] LAB[facility] CREATININE 0.62 0.60 - 1.25 [facility] mg/dL [facility] LABORATORY TOTAL BILI 0.5 0.1 - 1.1 mg/dL [facility] LAB[facility] CALCIUM 8.7 8.6 - 10.6 [facility] mg/dL [facility] LABORATORY T PROTEIN 6.2 (L) 6.3 - 8.2 g/dL [facility] LAB[facility] ALBUMIN 3.1 (L) 3.5 - 5.0 g/dL [facility] LABOR[facility] ALK PHOS 116 34 - 122 U/L [facility] ALTv 64 (H) 5 - 50 U/L [facility] LAB[facility] AST(SGOT) 43 (H) 13 - 40 U/L [facility] LAB[facility] eGFR Calculation 123.9 mL/min/1.73m2 [facility] (Non-[facility] LABORATORY [place]) eGFR Calculation 150.2 mL/min/1.73m2 [facility] () [facility] LABORATORY Specimen Blood - VENOUS Narrative Performed At [facility] of Glomerular Filtration Rate (GFR) [facility] LABORATORY and Staging of Kidney Disease* + + +- + | GFR (mL/min/1.73 m2) | With Kidney Damage | Without Kidney Damage + + +- + | >90 | Stage one | Normal + + +- + | 60-89 | Stage two | Decreased GFR + + +- + | 30-59 | Stage three | Stage three + + +- + | 15-29 | Stage four | Stage four + + +- + | <15 (or dialysis) | Stage five | Stage five + + +- + *Each stage assumes the associated GFR level has been in effect for at least three months. Stages 1 to 5, with or without kidney disease, indicate chronic kidney disease. Notes: Determination of stages one and two (with eGFR >59mL/min/1.73 m2) requires estimation of kidney damage for at least three months as defined by structural or functional abnormalities of the kidney, manifested by either: Pathological abnormalities or Markers of kidney damage (including abnormalities in the composition of the blood or urine or abnormalities in imaging tests). Performing Organization Address City/State/Zipcode Phone Number [facility] CLIA: [id number] [place] [address] CBC WITH DIFF (03/16/2020 8:58 AM [employer]) Pathologist Sig nature WBC 25.22 (H) 4.20 - 10.70 [facility] 10*3/L [facility] LABORATORY RBC 3.87 (L) 4.26 - 5.52 [facility] 10*6/L [facility] LABORATORY HGB 12.1 (L) 12.2 - 16.4 [facility] g/dL [facility] LABORATORY HCT 36.6 (L) 38.4 - 49.3 % [facility] MCV 94.6 81.7 - 95.6 fL [facility] MCH 31.3 26.1 - 32.7 pg [facility] MCHC 33.1 31.2 - 35.0 [facility] g/dL [facility] LABORATORY RDW-SD 46.7 38.5 - 51.6 fL [facility] RDW-CV 13.6 12.1 - 15.4 % [facility] PLT 469 (H) 150 - 328 [facility] 10*3/L [facility] LABORATORY MPV 10.2 9.8 - 13.0 fL [facility] NRBC/100 WBC 0.0 0.0 - 10.0 /100 [facility] WBCs [facility] LABORATORY NRBC x10^3 <0.01 10*3/L [facility] GRAN MAT (NEUT) % 87.3 % [facility] IMM GRAN % 1.20 % [facility] LYMPH % 5.7 % [facility] MONO % 4.7 % [facility] EOS % 0.6 % [facility] BASO % 0.5 % [facility] GRAN MAT x10^3(ANC) 22.00 (H) 1.99 - 6.95 [facility] 10*3/uL [facility] LABORATORY IMM GRAN x10^3 0.30 (H) 0.00 - 0.06 [facility] 10*3/uL [facility] LABORATORY LYMPH x10^3 1.45 1.09 - 3.23 [facility] 10*3/uL [facility] LABORATORY MONO x10^3 1.19 (H) 0.36 - 1.02 [facility] 10*3/uL [facility] LABORATORY EOS x10^3 0.15 0.06 - 0.53 [facility] 10*3/uL [facility] LABORATORY BASO x10^3 0.13 (H) 0.01 - 0.09 [facility] 10*3/uL [facility] LABORATORY Specimen Blood - VENOUS Performing Organization Address City/State/Zipcode Phone Number [facility] CLIA: [id number] [place] [address] Blood Culture - Peripheral # 1 (03/16/2020 8:58 AM [employer]) Blood No organisms isolated No growth [facility] Culture-Aerobic Comment: HOSPITAL Previous preliminary verifie d result was Culture In Progress on 03/16/2020 at 1301 [employer] LABORATORY Previous preliminary verifie d result was No growth at 24 hours on 03/17/2020 at 1001 [employer] Previous preliminary verifie d result was No growth at 48 hours on 03/18/2020 at 1001 [employer] Previous preliminary verifie d result was No growth at 72 hours on 03/19/2020 at 1001 [employer] Blood No organisms isolated No growth [facility] Culture-Anaerobic Comment: HOSPITAL Previous preliminary verifie d result was Culture In Progress on 03/16/2020 at 1301 [employer] LABORATORY Previous preliminary verifie d result was No growth at 24 hours on 03/17/2020 at 1001 [employer] Previous preliminary verifie d result was No growth at 48 hours on 03/18/2020 at 1001 [employer] Previous preliminary verifie d result was No growth at 72 hours on 03/19/2020 at 1001 [employer] Specimen Blood - VENOUS Performing Organization Address City/[facility]/Zipcode Phone Number [facility] CLIA: [id number] [place] [address] LABORATORY [address] [employer] Lactic Acid Whole Blood (03/16/2020 8:57 AM [employer]) [facility] LACTIC ACID 1.05 mmol/L [facility] LABORAT[facility] Specimen Blood - VENOUS Performing Organization Address City/[facility] Phone Number [facility] CLIA: [id number] [place] [address] LABORATORY [address] [employer] documented in this encounter Visit Diagnoses Diagnosis Fever, unspecified fever cause - Primary Hypoxia Hypoxemia Cough Pneumonia of both lower lobes due to inf ectious organism Pneumonia Pneumonia, organism unspecified documented in this encounter Administered Medications Medication Order MAR Action Action Date Dose Rate Site acetaminophen (TYLENOL) tablet Given 03/16/2020 9:46 PM [employer] 650 mg 650 mg 650 mg, Oral, Q6HPRN, Starting Thu03/16/20 at 1044, Until Discontinued, Routine, Pain (scale 1-3) amoxicillin-pot clavulanate (AUGMENTIN 250) Given 12/2019 9:26 AM [employer] 500 mg 250-62.5 mg/5 mL suspension 500 mg 500 mg, Enteral, TID, First dose on Thu03/20/20 at 1400, Until Discontinued, BLAYNE, Reason for Anti-Infective: Empiric Therapy for Suspected Infection, Empiric Therapy Site: Skin / Soft tissue, Duration of therapy: 72 hours Given 03/20/2020 8:44 PM [employer] 500 mg Given 03/20/2020 3:55 PM [employer] 500 mg apixaban (ELIQUIS) tablet 5 mg Given 03/21/2020 9:26 AM [employer] 5 mg 5 mg, Enteral, BID, First dose on Thu03/16/20 at 2000, Until Discontinued, Routine Given 03/20/2020 8:44 PM [employer] 5 mg Given 03/20/2020 10:43 AM [employer] 5 mg ipratropium-albuteroL (DUONEB) 0.5 mg-3 mg(2.5 mg base)/3 mL nebulizer solution 3 mL 3 mL, Inhalation, Q6HPRN, Starting 03/17/20 at 1445 , Until Discontinued, Routine, Wheezing, Shortness of Breath lactobacillus acidophilus (ACIDOPHILLUS) Given 03/21/2020 9 :26 AM [employer] 1 tablet 25 million cell -100 mg captab 1 tablet 1 tablet, Oral, TID, First dose on 03/17/20 at 2000, Until Discontinued, Routine Given 03/20/2020 8:44 PM [employer] 1 tablet Given 03/20/2020 3:55 PM [employer] 1 tablet ondansetron (ZOFRAN (PF)) injection 4 mg 4 mg, Slow IV Push, Q6HPRN, Starting Thu03/16/20 at 10 44, Until Discontinued, Routine, Nausea and Vomiting (N/V) Medication Order MAR Action Action Date Dose Rate Site iohexol (OMNIPAQUE 350 BULK-100 Given 03/16/2020 11:12 AM [employer] 10 0 mL mL) injection 100 mL 100 mL, Intravenous, ONCE, 1 dose, Thu03/16/20 at 1130, Routine levoFLOXacin in D5W (LEVAQUIN) 750 mg/150 mL Given 09/2019 2:49 PM [employer] 750 mg Piggyback 750 mg 750 mg, IV Piggyback, Q24H ABX, First dose on Thu03/16/20 at 1545, Until Discontinued, 150 mL, Reason for Anti-Infective: Empiric Therapy for Suspected Infection, Empiric Therapy Site: Respiratory, Duration of therapy: 72 hours Given 03/17/2020 3:45 PM [employer] 750 mg Given 03/16/2020 5:36 PM [employer] 750 mg NaCl 0.9% (NS) bolus infusion New Bag 03/16/2020 9:03 AM [employer] 2,040 mL 999 mL/hr 2,040 mL at 999 mL/hr, 2,040 mL (30 mL/kg 68 kg), IV Piggyback, ONCE, 1 dose, Thu03/16/20 at 0945, STAT piperacillin-tazobactam (ZOSYN) 3.375 g in Given 03/20 5:49 AM [employer] 3.375 g NaCl 0.9% (NS) 100 mL MINI-BAG 3.375 g, IV Piggyback, Q6H ABX, First dose on Thu03/16/20 at 1200, Until Discontinued, 100 mL, Reason for Anti-Infective: Empiric Therapy for Suspected Infection, Empiric Therapy Site: Respiratory, Duration of therapy: 72 hours Given 03/20/2020 1:05 AM [employer] 3.375 g Given 03/19/2020 6:19 PM [employer] 3.375 g vancomycin (VANCOCIN) 1,000 mg in NaCl Given 03/19/2020 9:29 AM [employer] 1,000 mg 0.9% (NS) 250 mL VIAL-MATE IV piggyback 1,000 mg, IV Piggyback, Q12H ABX, First dose on Thu03/16/20 at 2000, Until Discontinued, 250 mL, Reason for Anti-Infective: Empiric Therapy for Suspected Infection, Empiric Therapy Site: Respiratory, Duration of therapy: 72 hours Given 03/18/2020 9:28 PM [employer] 1,000 mg Given 03/18/2020 8:58 AM [employer] 1,000 mg documented in this encounter Additional Health Concerns Infection Onset Date Last Indicated Resolved Time COVID-19 Rule Out 03/16/2020 03/16/2020 03/16/2020 9: 48 AM [employer] documented as of this encounter Insurance Payer Benefit Plan Subscriber ID Effective Phone Address Typ e / Group Dates [employer]ET[employer] - AET[employer] [id number] 2019-[address] Medic are Adv [place]NA[place]ED [place]ICARE [place]V nt [id number] PPO MEDICARE [place] [phone] documented as of this encounter
--- OUTSIDE RECORDS SUMMARY | 2020-04-08 14:20 | XMS REPORT | Continuity of Care Document ---
:1935 Author Organization [facility] t Address [address] [place] [address] Care Team Providers Name Role Phone Calderon DO Attending Clinician Teddy WRAY Attending Clinician NILDA RIVERA Attending Clinician Unavail able Ronald Coats MD, Nilda Attending Clinician [phone] Roman WRAY I. Attending Clinician Tamar WRAY Attending Clinician Alaina Siddiqui MD Attending Clinician Jonny Bess MD Attending Clinician Jayla Pineda MD Attending Clinician Kingsley Hunter MD Attending Clinician Paul Varela MD Attending Clinician Shayy Grey MD Attending Clinician Virtual Attending Clinician Unavailable Xiang WRAY, Castillo Attending Clinician Teddy WRAY Admitting Clinician NILDA RIVERA Admitting Clinician Unavail able Payers Payer Name Policy Type Policy Effective Date Expiration Date Sour ce Number AETNA - MEDICARE [id number] [address] [facility] MGD CAREAETNA 00:00:00 - Medical MEDICARE O Center [id number] [id number] [place]ANY MARES [id number] Contracted Problems Condition Condition Condition Status Onset Resolution Last Treating Co mments Source Name Details Category Date Date Treatment Clinician Date SAH SAH Disease Active 2019-[address] [facility] (subarachn (subarachn 1-16 [facility] k[facility] - oid oid 00:00: Medical hemorrhage hemorrhage 00 Ce nter ) ) Urinary Urinary Disease Active 2019-[address] [facility] retention retention 1-13 [facility] - 00:[facility]: Medical 00 Center PEG PEG Disease Active 2019-[address] [facility] [address] (percutane (percutane 1-13 [facility] kes - ous ous 00:00: Medical endoscopic endoscopic 00 Ce nter gastrostom gastrostom y) status y) status Acute deep Acute deep Disease Active 2019-[address] vein vein 1-13 [facility] thrombosis thrombosis 00: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 00 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 2019-04 [facility] protein-ca protein-ca 1-13 [facility] k[facility] - efrain efrain 00:00: Medical malnutriti malnutriti 00 Ce nter on on Respirator Respirator Disease Active 2019-[address] y failure y failure 1-02 [facility] - 00:00: Medical [place] Encephalop Encephalop Disease Active 2019-[address] athy athy 0-21 [facility] - 00:[facility]: Medical 00 Center Subarachno Subarachno Disease Active 2019-[address] id id 0-20 [facility] - hemorrhage hemorrhage 00:00: Me dical 00 [place] Pneumothor Pneumothor Disease Resolve 2019-042020-02-24 2020-02-[address] ax ax d 1-02 00:00:00 08:57:51 [facility]: Medical [place] HTN HTN Disease Resolve 2019-042020-02-24 2020-02-[address] [facility] (hypertens (hypertens d 0-21 00:00:00 08:57:54 [facility] - ion) ion) 00:00: Medical 00 Center Cerebral Cerebral Disease Resolve 2019-042020-02-09 2020-02-[address] edema edema d 0-21 00:00:00 08:11:44 [facility] Medical Center History of Past Illness Condition Condition Condition Status Onset Resolution Last Treating Co mments Source Name Details Category Date Date Treatment Clinician Date Sepsis, Sepsis, Disease Resolve 2020-02-24 2020-02-[address] [facility] due to due to d 00:00:00 08:57:43 [facility] - unspecifie unspecifie Me dical d d Center organism, organism, unspecifie unspecifie d whether d whether acute acute organ organ dysfunctio dysfunctio n present n present Hypotensio Hypotensio Disease Resolve 2020-02-24 2020-02-[address] n, n, d 00:00:00 08:57:50 [facility] - unspecifie unspecifie Me dical d d [place] hypotensio hypotensio n type n type Septic Septic Disease Resolve 2020-02-24 2020-02-[address] shock shock d 00:00:00 08:57:43 [facility] Allergies, Adverse Reactions, Alerts Allergy Allergy Status Severity Reaction(s) Onset Inactive Treating Comm ents Source Name Type Date Date Clinician Statins- Drug Active 2019-04 Weight [facility] Hmg-Coa Allergy 0-20 loss, [facility] - Reductas 00:00: depressio Medic al e 00 n Center Inhibito rs Social History Social Habit Start Date Stop Date Quantity Comments Source History SDWV JUSTIN Owens - Alcohol Std Drinks Medica Center History SDWV JUSTIN Owens - Alcohol Binge Medical Tristen ter Sex Assigned At [facility] St Caprice borges [facility] Medical [place] Tobacco use and 2020-02-21 2020-02-21 Never used [facility] St Vasques kes - exposure 00:00:00 00:00:00 [facility] Alcohol intake 2020-02-21 2020-02-[address] [facility] [address] Vasquesk es - 00:00:00 00:00:00 non-drinker Medical Cente r (finding) History SDOH 2020-01-31 2020-01-31 1 JUSTIN Owens - Alcohol Frequency 00:00:00 00:00:00 [facility] Smoking Status Start Date Stop Date Source Never smoker [facility] Medications Ordered Filled Start Stop Current Ordering Indication Dosage Frequency Signature Comments Components Source Medication Medication Date Date Medication? Clinician (SIG) Name Name modafiniL 2019-04- Yes 200mg Q.5D Take [address] (PROVIGIL) 05-16 tablet [facility] - 200 MG 00:00: 23:59 (200 mg Medical tablet 00 :00 total) by Center mouth 2 (two) times daily for 30 days. Max Daily Amount: 400 mg baclofen 2019-04 Yes 5mg [id number] Take [address] (LIORESAL) 05-15 [id number] tablet (5 [facility] - 5 mg Tab 00:00: 3D mg total) Medi heather 00 by mouth 3 Center (three) times daily. sodium 2019-04 Yes 2mL Take 2 mLs [facility] chloride, 05-15 by Maximiliano - hypertonic, 00:00: nebulizati Medical (HYPER-LUIGI) 00 on every Cent er 7 % 12 nebulizer (twelve) solution hours. ipratropium 2019-04- Yes 3mL Take [address] [address] -albuteroL 05-15 by Maximiliano - (DUO-NEB) 00:00: 23:59 nebulizati M edical 0.5 mg-3 00 :00 on every 6 Cente r mg(2.5 mg (six) base)/3 mL hours for nebulizer 360 days. solution ramipriL 2019-04- No hypertensio 10mg QD Take [address] (ALTACE) 10 05-02 n by mouth Luisito es - MG capsule 12:56: 00:00 daily. Medi heather 37 :00 Center apixaban 2019-04- Yes Take [address] [facility] (ELIQUIS) 5 04-25 tablets [facility] - mg Tab 00:00: 23:59 (10 mg Medical tablet 00 :00 total) by Center mouth 2 (two) times daily for 5 days, THEN 1 tablet (5 mg total) 2 (two) times daily for 65 days. doxazosin 2019-04- No 1mg QD Take 1 [facility] (CARDURA) 1 04-25 tablet (1 Caprice kes - MG tablet 00:00: 00:00 mg total) Me dical 00 :00 by mouth Center nightly. modafiniL 2019-04- No 100mg Q.5D Take [address] (PROVIGIL) 04-25 tablet [facility] - 100 MG 00:00: 00:00 (100 mg Medical tablet 00 :00 total) by Center mouth 2 (two) times daily. Max Daily Amount: 200 mg QUEtiapine 2019-04 12.5mg QD Take 0.[address] [facility] (SEROquel) 04-25 tablets [facility] - 25 MG 00:00: 00:00 (12.5 mg Medical tablet 00 :00 total) by Center mouth nightly. QUEtiapine 2019-04 25mg QD Take [address] [facility] [facility] (SEROquel) 04-25 tablet (25 Caprice kes - 25 MG 00:00: 00:00 mg total) Medica l tablet 00 :00 by mouth Center nightly. Vital Signs Vital Name Observation Time Observation Value Comments Source Systolic blood 2020-03-14 16:00:00 120 mm[Hg] [facility] Diastolic blood 2020-03-14 16:00:00 69 mm[Hg] [facility] Heart rate 2020-03-14 16:00:00 78 /min [facility] Body temperature 2020-03-14 16:00:00 37.17 Cecile [facility] Respiratory rate 2020-03-14 16:00:00 18 /min [facility] Oxygen saturation in 2020-03-14 16:00:00 93 /min [facility] Arterial blood by Medical Ce nter Pulse oximetry Body weight 2020-03-09 08:48:00 66.679 kg [facility] BMI 2020-03-09 08:48:00 20.51 kg/m2 [facility] Body height 2020-02-27 12:00:00 180.3 cm [facility] Procedures Procedure Date / Time Performing Clinician Source Performed POCT-GLUCOSE METER 2020-03-14 12:10:00 Sunshine Pineda [facility] POCT-GLUCOSE METER 2020-03-14 05:30:00 Sunshine Pineda [facility] POCT-GLUCOSE METER 2020-03-13 23:37:00 Sunshine Pineda [facility] POCT-GLUCOSE METER 2020-03-13 18:22:00 Edwin Sunshine [facility] POCT-GLUCOSE METER 2020-03-13 12:11:00 [facility] [place] [facility]-COV2/RT-[facility] ([facility] & 2020-03-13 10:17:00 Len [facility] LABS) [facility] POCT-GLUCOSE METER 2020-03-13 05:48:00 Edwin Sunshine [facility] POCT-GLUCOSE METER 2020-03-12 23:25:00 [facility] [place] POCT-GLUCOSE METER 2020-03-12 12:35:00 Edwin Sunshine [facility] POCT-GLUCOSE METER 2020-03-12 06:06:00 [facility] [place] CBC W/PLT COUNT & AUTO 2020-03-12 04:09:00 Ollie Pollard ra [facility] POCT-GLUCOSE METER 2020-03-11 23:30:00 [facility] [place] POCT-GLUCOSE METER 2020-03-11 17:12:00 Edwin Sunshine [facility] POCT-GLUCOSE METER 2020-03-11 12:47:00 Edwin Sunshine [facility] POCT-GLUCOSE METER 2020-03-11 05:34:00 Edwin [facility] CBC W/PLT COUNT & AUTO 2020-03-11 04:40:00 Ollie Pollard ra [facility] POCT-GLUCOSE METER 2020-03-10 23:37:00 [facility] [place] POCT-GLUCOSE METER 2020-03-10 16:55:00 [facility] [place] POCT-GLUCOSE METER 2020-03-10 12:41:00 Edwin Sunshine [facility] BASIC METABOLIC PANEL 2020-03-10 06:58:00 Sunshine Pineda [facility] () [facility] CBC W/PLT COUNT & AUTO 2020-03-10 06:58:00 Ollie Pollard ra [facility] POCT-GLUCOSE METER 2020-03-10 06:08:00 Sunshine Pineda [facility] POCT-GLUCOSE METER 2020-03-09 23:54:00 Sunshine Pineda [facility] POCT-GLUCOSE METER 2020-03-09 17:24:00 Sunshine Pineda [facility] POCT-GLUCOSE METER 2020-03-09 11:31:00 Sunshine Pineda [facility] BLOOD CULTURE 2020-03-09 10:59:00 Sunshine Pineda [facility] XR CHEST 1 VIEW 2020-03-09 10:38:00 Sunshine Pineda [facility] PORTABLE/BEDSIDE Medical Center URINALYSIS W/ REFLEX 2020-03-09 09:52:00 Sunshine Pineda [facility] URINE CULTURE [facility] POCT-GLUCOSE METER 2020-03-09 05:51:00 Sunshine Pineda [facility] BASIC METABOLIC PANEL 2020-03-09 03:45:00 Sunshine Pineda [facility] () [facility] CBC W/PLT COUNT & AUTO 2020-03-09 03:45:00 Ollie Pollard ra [facility] POCT-GLUCOSE METER 2020-03-08 23:38:00 Sunshine Pineda [facility] POCT-GLUCOSE METER 2020-03-08 17:38:00 Sunshine Pineda [facility] POCT-GLUCOSE METER 2020-03-08 11:51:00 Sunshine Pineda [facility] POCT-GLUCOSE METER 2020-03-08 06:05:00 Sunshine Pineda [facility] PHOSPHORUS 2020-03-08 04:01:00 Darline Rivera [facility] CBC W/PLT COUNT & AUTO 2020-03-08 04:01:00 Ollie Pollard ra [facility] POCT-GLUCOSE METER 2020-03-08 00:01:00 Edwin, [facility] POCT-GLUCOSE METER 2020-03-07 16:18:00 Edwin, [facility] POCT-GLUCOSE METER 2020-03-07 12:00:00 Edwin, [facility] POCT-GLUCOSE METER 2020-03-07 05:57:00 Edwin [facility] PHOSPHORUS 2020-03-07 04:35:00 Miguel, [facility] CBC W/PLT COUNT & AUTO 2020-03-07 04:35:00 Ollie Pollard ra [facility] POCT-GLUCOSE METER 2020-03-06 23:39:00 Edwin [facility] POCT-GLUCOSE METER 2020-03-06 17:39:00 Tamar [facility] SARS-COV2/RT-PCR ([facility] & 2020-03-06 [facility]:48[facility] POCT-GLUCOSE METER 2020-03-06 13:08:00 [facility] POCT-GLUCOSE METER 2020-03-06 05:12:00 Tamar [facility] PHOSPHORUS 2020-03-06 04:33:00 Miguel [facility] CBC W/PLT COUNT & AUTO 2020-03-06 04:33:00 Ollie Pollard ra [facility] POCT-GLUCOSE METER 2020-03-06 00:26:00 Tamar [facility] POCT-GLUCOSE METER 2020-03-05 17:59:00 Tamar [facility] POCT-GLUCOSE METER 2020-03-05 16:21:00 Tamar [facility] POCT-GLUCOSE METER 2020-03-05 06:17:00 Tamar [facility] PHOSPHORUS 2020-03-05 03:49:00 Miguel [facility] CBC W/PLT COUNT & AUTO 2020-03-05 03:49:00 Ollie Pollard ra [facility] POCT-GLUCOSE METER 2020-03-04 23:33:00 Tamar [facility] POCT-GLUCOSE METER 2020-03-04 17:25:00 Tamar [facility] POCT-GLUCOSE METER 2020-03-04 12:40:00 Tamar [facility] POCT-GLUCOSE METER 2020-03-04 05:42:00 Tamar [facility] PHOSPHORUS 2020-03-04 05:05:00 Miguel [facility] BASIC METABOLIC PANEL 2020-03-04 05:05:00 MasoudCody garrett [facility] () [facility] MAGNESIUM 2020-03-04 05:05:00 Masoud Codyaidan Amaro [facility] CBC W/PLT COUNT & AUTO 2020-03-04 05:05:00 Ollie Pollard ra [facility] POCT-GLUCOSE METER 2020-03-03 23:09:00 Tamar [facility] POCT-GLUCOSE METER 2020-03-03 17:58:00 Tamar [facility] POCT-GLUCOSE METER 2020-03-03 12:10:00 Tamar [facility] PHOSPHORUS 2020-03-03 06:43:00 Miguel [facility] BASIC METABOLIC PANEL 2020-03-03 06:43:00 MasoudCody garrett [facility] () [facility] MAGNESIUM 2020-03-03 06:43:00 Masoud, Codyaidan Amaro [facility] CBC W/PLT COUNT & AUTO 2020-03-03 06:43:00 Ollie Pollard ra [facility] POCT-GLUCOSE METER 2020-03-03 05:34:00 Jared Boyle [facility] POCT-GLUCOSE METER 2020-03-02 23:48:00 Jared Boyle [facility] POCT-GLUCOSE METER 2020-03-02 11:38:00 Thang Bess [facility] PHOSPHORUS 2020-03-02 04:07:00 MiguelDarline candelaria [facility] BASIC METABOLIC PANEL 2020-03-02 04:07:00 Cody Meredith Kanchan [address] MAGNESIUM 2020-03-02 04:07:00 Masoud Codyaidan Amaro [facility] CBC W/PLT COUNT & AUTO 2020-03-02 04:07:00 Ollie Pollard ra [facility] POCT-GLUCOSE METER 2020-03-02 00:44:00 Thang Bess [facility] POCT-GLUCOSE METER 2020-03-01 17:41:00 Thang Bess [facility] POCT-GLUCOSE METER 2020-03-01 11:46:00 Thang Bess [facility] XR CHEST 1 VIEW 2020-03-01 09:44:00 Cody Meredith [facility] PORTABLE/BEDSIDE [facility] POCT-GLUCOSE METER 2020-03-01 06:00:00 Thang Bess [facility] PHOSPHORUS 2020-03-01 04:51:00 Darline Rivera [facility] BLOOD GAS, ARTERIAL 2020-03-01 04:51:00 Darline Rivera [facility] BASIC METABOLIC PANEL 2020-03-01 04:51:00 Ollie Pollard [place] [id number]) [facility] MAGNESIUM 2020-03-01 04:51:00 Kristen Coon [facility] CBC W/PLT COUNT & AUTO 2020-03-01 04:51:00 Ollie Pollard ra [facility] POCT-GLUCOSE METER 2020-02-29 23:34:00 Thang Bess [facility] MAGNESIUM 2020-02-29 17:35:00 Kristen Coon [facility] PHOSPHORUS 2020-02-29 17:35:00 Kristen Coon [facility] BASIC METABOLIC PANEL 2020-02-29 17:35:00 Cody Meredith [address] POCT-GLUCOSE METER 2020-02-29 16:48:00 Thang Bess [facility] MAGNESIUM 2020-02-29 13:34:00 Cody Meredith [facility] BASIC METABOLIC PANEL 2020-02-29 13:34:00 Cody Meredith [address] PHOSPHORUS 2020-02-29 13:34:00 Cody Meredith [facility] CALCIUM, IONIZED 2020-02-29 11:49:00 Kristen Coon [facility] POCT-GLUCOSE METER 2020-02-29 11:19:00 Thang Bess [facility] BLOOD GAS, ARTERIAL 2020-02-29 10:57:00 Masoud Codyaidan Amaro [facility] POCT-GLUCOSE METER 2020-02-29 06:17:00 Thang Bess [facility] BLOOD GAS, ARTERIAL 2020-02-29 04:48:00 MiguelDarline [facility] MAGNESIUM 2020-02-29 04:30:00 MiguelDarline [facility] PHOSPHORUS 2020-02-29 04:30:00 MiguelDarline candelaria [facility] PROCALCITONIN 2020-02-29 04:30:00 Masoud, Cody [facility] BASIC METABOLIC PANEL 2020-02-29 04:30:00 Ollie Pollard [address] LACTIC ACID, ARTERIAL 2020-02-29 04:30:00 Ollie Pollard [facility] CBC W/PLT COUNT & AUTO 2020-02-29 04:30:00 Ollie Pollard ra [facility] POCT-GLUCOSE METER 2020-02-29 00:22:00 Thang Bess [facility] POCT-GLUCOSE METER 2020-02-28 18:13:00 Thang Bess [facility] SARS-COV2/RT-PCR ([facility] & 2020-02-28 11:55:00 Len [facility] - REF LABS) [facility] POCT-GLUCOSE METER 2020-02-28 11:15:00 Thang Bess [facility] BASIC METABOLIC PANEL 2020-02-28 09:05:00 Darline Rivera [facility] (7) [facility] BLOOD GAS, ARTERIAL 2020-02-28 09:05:00 Cody Meredith [facility] LACTIC ACID, VENOUS 2020-02-28 04:39:00 Ollie Pollard [facility] POCT-GLUCOSE METER 2020-02-28 04:36:00 Radha Siddiqui [facility] CALCIUM, IONIZED 2020-02-28 03:14:00 Ollie Pollard [facility] BLOOD GAS, ARTERIAL 2020-02-28 03:09:00 Miguel, [facility] MAGNESIUM 2020-02-28 03:08:00 MiguelDarline [facility] PHOSPHORUS 2020-02-28 03:08:00 MiguelDarline candelaria [facility] BASIC METABOLIC PANEL 2020-02-28 03:08:00 Miguel [facility] (7) [facility] CBC W/PLT COUNT & AUTO 2020-02-28 03:08:00 Melody [facility] (CELLAVISION MANUAL 2020-02-28 03:08:00 Fahad [facility] - DIFF) [facility] BLOOD GAS, ARTERIAL 2020-02-28 00:29:00 Ollie Pollard [facility] POCT-GLUCOSE METER 2020-02-28 00:14:00 Radha Siddiqui [facility] BLOOD GAS, ARTERIAL 2020-02-27 21:13:00 Ollie Pollard Aakashrogercorrina [facility] LACTIC ACID, ARTERIAL 2020-02-27 21:12:00 SergiobrisaOllie [facility] CALCIUM, IONIZED 2020-02-27 21:12:00 SergiobrisaOllie Aakashrogercorrina [facility] CBC W/PLT COUNT & AUTO 2020-02-27 21:12:00 Jose CarlosbishopOllie [facility] (CELLAVISION MANUAL 2020-02-27 21:12:00 Jose Carlosbishop Ollie Jere [facility] DIFF) [facility] BASIC METABOLIC PANEL 2020-02-27 21:01:00 Darline Rivera [facility] (7) [facility] MAGNESIUM 2020-02-27 21:01:00 Phyllis Pollardph Jere [facility] PHOSPHORUS 2020-02-27 21:01:00 Jose Carlosbishop Ollie Aakashrogercorrina [facility] CT BRAIN WITHOUT IV 2020-02-27 19:05:00 Eduardo Holm [facility] CT CHEST WITHOUT IV 2020-02-27 19:05:00 Darline Rivera [facility] CONTRAST [facility] CT ABDOMEN/PELVIS 2020-02-27 19:05:00 Miguel [facility] es - WITHOUT IV CONTRAST Medical Cent er 2D ECHO W/ DOPPLER 2020-02-27 17:35:[address] [facility] - (CW/PW/COLOR) [facility] XR CHEST 1 VIEW 2020-02-27 17:05:00 Darline Rivera [facility] - PORTABLE/BEDSIDE Medical Center BASIC METABOLIC PANEL 2020-02-27 15:47:00 Miguel [facility] (7) [facility] BLOOD GAS, ARTERIAL 2020-02-27 15:47:00 Miguel [facility] LACTIC ACID, ARTERIAL 2020-02-27 15:47:00 Eduardo Holm [facility] MAGNESIUM 2020-02-27 15:47:00 Miguel, [facility] POCT-GLUCOSE METER 2020-02-27 14:55:00 Adio, Radha Foley [facility] LACTIC ACID, VENOUS 2020-02-27 14:20:00 Bahdi, [facility] MRSA SCREEN 2020-02-27 13:39:00 Bahdi, [facility] URINE CULTURE 2020-02-27 13:39:00 Bahdi, [facility] URINALYSIS W/ REFLEX 2020-02-27 13:39:00 Bahdi, [facility] URINE CULTURE [facility] SPUTUM CULTURE + GRAM 2020-02-27 11:59:00 Miguel, [facility] PROTHROMBIN TIME/INR 2020-02-27 11:57:00 Miguel, [facility] LACTIC ACID, ARTERIAL 2020-02-27 11:57:00 Miguel, [facility] BASIC METABOLIC PANEL 2020-02-27 11:57:00 Miguel, [facility] (7) [facility] MAGNESIUM 2020-02-27 11:57:00 Miguel, [facility] BLOOD GAS, ARTERIAL 2020-02-27 11:56:00 Miguel, [facility] BLOOD CULTURE 2020-02-27 11:12:00 Miguel, [facility] XR CHEST 1 VIEW 2020-02-27 10:44:00 Miguel, [facility]/BEDSIDE [facility] BLOOD CULTURE 2020-02-27 10:20:00 Miguel, [facility] XR CHEST 1 VIEW 2020-02-27 09:48:00 Adio, Radha Foley [facility] PT/APTT 2020-02-27 09:41:00 Montyio, Radha Foley [facility] LACTIC ACID, VENOUS 2020-02-27 09:40:00 Radha Siddiqui [facility] COMPREHENSIVE METABOLIC 2020-02-27 09:39:00 Montyio, Radha Foley [facility] TROPONIN I 2020-02-27 09:39:00 Adio, Radha Foley [facility] CBC W/PLT COUNT & AUTO 2020-02-27 09:39:00 Adio, Radha Foley [facility] POCT-BLOOD GASES, 2020-02-27 09:37:00 Adio, Radha Foley [facility] ARTERIAL [facility] POCT-SODIUM 2020-02-27 09:37:00 Adio, Radha Foley [facility] POCT-POTASSIUM 2020-02-27 09:37:00 Adio, Radha Foley [facility] POCT-HEMOGLOBIN 2020-02-27 09:37:00 Adio, Radha Foley [facility] POCT-HEMATOCRIT 2020-02-27 09:37:00 Adio, Radha Foley [facility] POCT-CALCIUM IONIZED 2020-02-27 09:37:00 Adio, Radha Foley [facility] POCT-GLUCOSE 2020-02-27 09:37:00 Adio, Radha Foley [facility] POCT-GLUCOSE METER 2020-02-27 05:31:00 Adio, Radha Foley [facility] CBC W/PLT COUNT & AUTO 2020-02-27 04:52:00 Bahrae, [facility] POCT-GLUCOSE METER 2020-02-27 00:14:00 Adio, Radha Foley [facility] POCT-GLUCOSE METER 2020-02-26 17:31:00 Adio, Radha Foley [facility] CBC W/PLT COUNT & AUTO 2020-02-26 12:14:00 Melody, [facility] CT BRAIN WITHOUT IV 2020-02-26 10:20:00 Bahrae, [facility] COMPREHENSIVE METABOLIC 2020-02-26 09:04:[address] [facility] POCT-GLUCOSE METER 2020-02-26 06:47:00 Radha Siddiqui [facility] POCT-GLUCOSE METER 2020-02-26 00:24:00 Radha Siddiqui RBurton [facility] POCT-GLUCOSE METER 2020-02-25 12:38:00 Chen, Radha RBurton [facility] POCT-GLUCOSE METER 2020-02-25 05:30:00 aRdha Siddiqui [facility] COMPREHENSIVE METABOLIC 2020-02-25 04:34:[address] [facility] CBC W/PLT COUNT & AUTO 2020-02-25 04:33:00 Evi Sanchez [facility] POCT-GLUCOSE METER 2020-02-24 23:17:00 Radha Siddiqui [facility] POCT-GLUCOSE METER 2020-02-24 17:22:00 Radha Siddiqui [facility] POCT-GLUCOSE METER 2020-02-24 12:36:00 Radha Siddiqui [facility] COMPREHENSIVE METABOLIC 2020-02-24 06:19:[address] [facility] CBC W/PLT COUNT & AUTO 2020-02-24 06:19:00 Evi Sanchez [facility] POCT-GLUCOSE METER 2020-02-24 05:53:00 Radha Siddiqui [facility] POCT-GLUCOSE METER 2020-02-24 00:05:00 Radha Siddiqui [facility] POCT-GLUCOSE METER 2020-02-23 17:59:00 Radha Siddiqui [facility] COMPREHENSIVE METABOLIC 2020-02-23 05:29:[address] [facility] CBC W/PLT COUNT & AUTO 2020-02-23 05:29:00 Evi Sanchez [facility] S [facility] POCT-GLUCOSE METER 2020-02-22 23:26:00 Radha Siddiqui. [facility] VANCOMYCIN LEVEL, TROUGH 2020-02-22 22:21:00 Dillon Avina [facility] POCT-GLUCOSE METER 2020-02-22 18:38:00 Adio, Radha Foley [facility] APTT 2020-02-22 12:07:00 Montyio, Radha Foley [facility] POCT-GLUCOSE METER 2020-02-22 11:42:00 Adio, Radha Foley [facility] POCT-GLUCOSE METER 2020-02-22 05:41:00 Adio, Radha Foley [facility] COMPREHENSIVE METABOLIC 2020-02-22 04:09:[address] [facility] APTT 2020-02-22 04:09:00 Daniel [facility] CBC W/PLT COUNT & AUTO 2020-02-22 04:09:00 Daniel [facility] (CELLAVISION MANUAL 2020-02-22 04:09:00 [facility] ukes - DIFF) [facility] POCT-GLUCOSE METER 2020-02-22 00:32:00 Radha Siddiqui [facility] POCT-GLUCOSE METER 2020-02-21 18:47:00 Tamar, [facility] APTT 2020-02-21 16:44:00 Daniel [facility] URINALYSIS W/ REFLEX 2020-02-21 12:47:00 Tamar, [facility] URINE CULTURE [facility] SARS-COV2/RT-PCR ([facility] & 2020-02-21 11:53:00 Len [facility] REF LABS) [facility] BLOOD CULTURE 2020-02-21 11:04:00 Tamar, [facility] XR CHEST 1 VIEW 2020-02-21 10:48:00 Tamar [facility] PORTABLE/BEDSIDE Medical Center LACTIC ACID, VENOUS 2020-02-21 10:39:00 Jared Boyle [facility] APTT 2020-02-21 10:39:00 [facility] COMPREHENSIVE METABOLIC 2020-02-21 06:37:00 Len [facility] - PANEL [facility] CBC W/PLT COUNT & AUTO 2020-02-21 06:37:00 Evi Sanchez [facility] S t [facility] (CELLAVISION MANUAL 2020-02-21 06:37:00 [facility] POCT-GLUCOSE METER 2020-02-21 05:24:00 Tamar [facility] POCT-GLUCOSE METER 2020-02-21 00:39:00 [facility] 2020-02-21 00:30:00 [facility] REPORT OF PROCEDURE - 2020-02-20 13:33:23 Yelena Hunter [facility] ENDOSCOPY [facility] UPPER ENDOSCOPY,PEG 2020-02-20 12:52:00 Yelena Hunter [facility] POCT-GLUCOSE METER 2020-02-20 05:20:00 Jared Boyle [facility] COMPREHENSIVE METABOLIC 2020-02-20 04:31:00 Len [facility] PANEL [facility] APTT 2020-02-20 04:31:00 Evi Sanchez [facility] CBC W/PLT COUNT & AUTO 2020-02-20 04:31:00 Evi Sanchez [facility] S t [facility] POCT-GLUCOSE METER 2020-02-19 23:14:00 Tamar [facility] APTT 2020-02-19 21:41:00 [facility] POCT-GLUCOSE METER 2020-02-19 17:35:00 [facility] AP[facility] 2020-02-19 13:58:[address] [facility] POCT-GLUCOSE METER 2020-02-19 05:58:00 Tamar [facility] COMPREHENSIVE METABOLIC 2020-02-19 05:40:[address] [facility] APTT 2020-02-19 05:40:00 Daniel [facility] CBC W/PLT COUNT & AUTO 2020-02-19 05:40:00 Daniel [facility] POCT-GLUCOSE METER 2020-02-18 23:02:00 Tamar [facility] APTT 2020-02-18 21:13:00 Daniel [facility] POCT-GLUCOSE METER 2020-02-18 16:50:00 Tamar [facility] APTT 2020-02-18 14:11:00 Daniel [facility] POCT-GLUCOSE METER 2020-02-18 12:16:00 Tamar [facility] APTT 2020-02-18 07:57:00 Daniel [facility] POCT-GLUCOSE METER 2020-02-18 07:47:00 Tamar [facility] POCT-GLUCOSE METER 2020-02-18 05:15:00 Tamar [facility] COMPREHENSIVE METABOLIC 2020-02-18 01:03:[address] [facility] APTT 2020-02-18 01:03:00 Daniel [facility] CBC W/PLT COUNT & AUTO 2020-02-18 01:03:00 Daniel [facility] POCT-GLUCOSE METER 2020-02-17 23:02:00 Tamar [facility] APTT 2020-02-17 22:48:00 Daniel [facility] POCT-GLUCOSE METER 2020-02-17 18:11:00 Tamar [facility] AMMONIA 2020-02-17 15:26:00 Len [facility] APTT 2020-02-17 15:25:00 Daniel [facility] POCT-GLUCOSE METER 2020-02-17 12:53:00 [facility] 2020-02-17 12:40:00 Daniel [facility] COMPREHENSIVE METABOLIC 2020-02-17 06:59:[address] [facility] B-TYPE NATRIURETIC 2020-02-17 06:59:00 [facility] APTT 2020-02-17 06:59:00 Daniel [facility] CBC W/PLT COUNT & AUTO 2020-02-17 06:59:00 Daniel [facility] POCT-GLUCOSE METER 2020-02-17 05:35:00 Tamar [facility] APTT 2020-02-17 00:12:00 Daniel [facility] POCT-GLUCOSE METER 2020-02-17 00:06:00 Tamar [facility] APTT 2020-02-16 17:47:00 Daniel [facility] POCT-GLUCOSE METER 2020-02-16 17:44:00 Tamar [facility] POCT-GLUCOSE METER 2020-02-16 12:48:00 Tamar [facility] APTT 2020-02-16 12:23:00 Daniel [facility] VITAMIN B12 2020-02-16 10:05:00 Len [facility] POCT-GLUCOSE METER 2020-02-16 06:06:00 Ronald Coats [facility] APTT 2020-02-16 05:42:00 [facility]EL 2020-02-16 05:42:00 [facility] () [facility] HEPATIC FUNCTION PANEL 2020-02-16 05:42:00 [facility] W/PLT COUNT & AUTO 2020-02-16 05:42:00 [facility] APTT 2020-02-15 23:55:00 [facility] POCT-GLUCOSE METER 2020-02-15 23:40:00 Ronald Coats [facility] Ce [facility]ter APTT 2020-02-15 18:24:00 [facility] CALCIUM, IONIZED 2020-02-15 13:04:00 [facility] POCT-GLUCOSE METER 2020-02-15 12:56:00 Ronald Coats [facility] Ce nter MAGNESIUM 2020-02-15 10:41:00 [facility] APTT 2020-02-15 10:41:00 [facility] C. DIFFICILE GDH TOXIN 2020-02-15 08:33:[address] [facility] HEPATITIS PANEL, ACUTE 2020-02-15 07:59:00 [facility] PROCALCITONIN 2020-02-15 07:59:00 Perez Ramirez [facility] LACTIC ACID, ARTERIAL 2020-02-15 07:59:00 Perez Ramirez se [facility] BLOOD GAS, ARTERIAL 2020-02-15 03:43:00 Zheng [facility] BASIC METABOLIC PANEL 2020-02-15 03:41:00 Daniel [facility] (7) [facility] MAGNESIUM 2020-02-15 03:41:00 Zheng [facility] PHOSPHORUS 2020-02-15 03:41:00 Zheng [facility] CALCIUM, IONIZED 2020-02-15 03:41:00 Zheng [facility] HEPATIC FUNCTION PANEL 2020-02-15 03:41:[address] [facility] APTT 2020-02-15 03:41:00 Daniel [facility] CBC W/PLT COUNT & AUTO 2020-02-15 03:41:00 Daniel [facility] POCT-GLUCOSE METER 2020-02-14 23:41:00 Ronald Coats [facility]ter APTT 2020-02-14 21:55:00 Daniel [facility] POCT-GLUCOSE METER 2020-02-14 18:40:00 Ronald Coats [facility] Ce nter VANCOMYCIN LEVEL, TROUGH 2020-02-14 15:49:00 Corrina Millan [facility] CALCIUM, IONIZED 2020-02-14 15:49:00 Daniel [facility] POTASSIUM 2020-02-14 15:49:00 Daniel [facility] APTT 2020-02-14 15:49:00 Daniel [facility] POCT-GLUCOSE METER 2020-02-14 12:05:00 Ronald Coats [facility] APTT 2020-02-14 09:59:00 Daniel [facility] POCT-GLUCOSE METER 2020-02-14 05:31:00 Ronald Coats [facility] Ce [facility]ter SARS-COV2/RT-PCR ([facility] & 2020-02-14 04:22:00 Yoli Gallagher [facility] - REF LABS) [facility] APTT 2020-02-14 04:12:00 Daniel [facility] BLOOD GAS, ARTERIAL 2020-02-14 04:11:00 Yoli Gallagher [facility] BASIC METABOLIC PANEL 2020-02-14 04:10:00 Daniel [facility] (7) [facility] HEPATIC FUNCTION PANEL 2020-02-14 04:10:00 Yoli Gallagher [facility] MAGNESIUM 2020-02-14 04:10:00 Zheng [facility] PHOSPHORUS 2020-02-14 04:10:00 Zheng [facility] CALCIUM, IONIZED 2020-02-14 04:10:00 [facility] CBC W/PLT COUNT & AUTO 2020-02-14 04:10:00 Daniel [facility] XR CHEST 1 VIEW 2020-02-14 00:45:00 Daniel [facility] PORTABLE/BEDSIDE [facility] POCT-GLUCOSE METER 2020-02-14 00:34:00 Ronald Coats [facility] APTT 2020-02-14 00:29:00 Daniel [facility] POTASSIUM 2020-02-14 00:29:00 Daniel [facility] MAGNESIUM 2020-02-14 00:29:00 Daniel [facility] PHOSPHORUS 2020-02-14 00:29:00 Daniel [facility] BLOOD GAS, ARTERIAL 2020-02-13 19:09:00 Yoli Gallagher [facility] VENOUS DOPPLER LEGS 2020-02-13 18:59:00 Calvin TiffaniePerez dunaway [facility] PT/APTT 2020-02-13 18:09:00 Salinas Georges [facility] POCT-GLUCOSE METER 2020-02-13 17:39:00 Ronald Coats [facility] MRSA SCREEN 2020-02-13 12:00:00 Renee [facility] TRIGLYCERIDES 2020-02-13 11:58:00 Renee [facility] AMYLASE 2020-02-13 11:58:00 Renee [facility] LIPASE 2020-02-13 11:58:00 Duran [facility] PT/APTT 2020-02-13 11:58:00 José Manuel Sal[place] [facility] POCT-GLUCOSE METER 2020-02-13 11:57:00 Ronald Coats [facility] Ce nter CT BRAIN WITHOUT IV 2020-02-13 10:55:00 Renee [facility] POCT-GLUCOSE METER 2020-02-13 06:26:00 Ronald Coats [facility] APTT 2020-02-13 04:54:00 Evi Sanchez [facility] BASIC METABOLIC PANEL 2020-02-13 03:24:00 Daniel [facility] HEPATIC FUNCTION PANEL 2020-02-13 03:24:00 Yoli Gallagher [facility] MAGNESIUM 2020-02-13 03:24:00 Kathy Calzada [facility] PHOSPHORUS 2020-02-13 03:24:00 [facility] 2020-02-13 03:24:00 Zheng [facility] CBC W/PLT COUNT & AUTO 2020-02-13 03:24:00 Daniel [facility] BLOOD GAS, ARTERIAL 2020-02-13 03:23:00 Ronald Coats [facility] Ce [facility]ter XR CHEST 1 VIEW 2020-02-13 02:33:00 Daniel [facility] PORTABLE/BEDSIDE [facility] POCT-GLUCOSE METER 2020-02-12 23:09:00 Ronald Coats [facility]ter LACTIC ACID, ARTERIAL 2020-02-12 21:44:00 Yoli Gallagher [facility] APTT 2020-02-12 21:44:00 Daniel [facility] POCT-GLUCOSE METER 2020-02-12 17:59:00 Ronald Coats [facility] Ce nter XR CHEST 1 VIEW 2020-02-12 13:59:00 Daniel [facility]/BEDSIDE [facility] APTT 2020-02-12 13:57:00 Daniel [facility] POCT-GLUCOSE METER 2020-02-12 13:11:00 Ronald Coats [facility]ter BRONCHIAL CULTURE + GRAM 2020-02-12 13:04:00 Daniel [facility] POCT-GLUCOSE METER 2020-02-12 06:39:00 Ronald Coats [facility] APTT 2020-02-12 04:50:00 Daniel [facility] BASIC METABOLIC PANEL 2020-02-12 03:52:00 Daniel [facility] () [facility] HEPATIC FUNCTION PANEL 2020-02-12 03:52:00 Yoli Gallagher [facility] BLOOD GAS, ARTERIAL 2020-02-12 03:52:00 Yoli Gallagher [facility] LACTIC ACID, ARTERIAL 2020-02-12 03:52:00 Yoli Gallagher [facility] CBC W/PLT COUNT & AUTO 2020-02-12 03:52:00 Evi Sanchez [facility] S [facility] (CELLAVISION MANUAL 2020-02-12 03:52:00 Evi Sanchez [facility] L ukes - DIFF) [facility] XR CHEST 1 VIEW 2020-02-12 01:21:00 Daniel [facility] PORTABLE/BEDSIDE [facility] POCT-GLUCOSE METER 2020-02-12 00:41:00 Ronald Coats [facility] Ce [facility]ter LACTIC ACID, ARTERIAL 2020-02-11 21:46:00 Yoli Gallagher [facility] APTT 2020-02-11 21:46:00 Daniel [facility] BLOOD GAS, ARTERIAL 2020-02-11 21:45:00 Yoli Gallagher [facility] POCT-GLUCOSE METER 2020-02-11 18:51:00 Ronald Coats [facility] Ce nter VANCOMYCIN LEVEL, TROUGH 2020-02-11 18:40:00 Corrina Millan [facility] POCT-GLUCOSE METER 2020-02-11 14:18:00 Ronald Coats [facility]ter LACTIC ACID, ARTERIAL 2020-02-11 14:03:00 Yoli Gallagher [facility] PERIPHERAL BLOOD SMEAR - 2020-02-11 14:03:00 Eulogio Elder Ub anselmo [facility] - PATHOLOGIST REVIEW [facility] BLOOD GAS, ARTERIAL 2020-02-11 14:02:00 Yoli Gallagher [facility] APTT 2020-02-11 14:02:00 Daniel [facility] APTT 2020-02-11 06:48:00 [facility] POCT-GLUCOSE METER 2020-02-11 05:56:00 Ronald Coats [facility]ter BLOOD GAS, ARTERIAL 2020-02-11 03:58:00 Yoli Gallagher [facility] BASIC METABOLIC PANEL 2020-02-11 03:56:00 Daniel [facility] (7) [facility] MAGNESIUM 2020-02-11 03:56:00 Zheng Ortiz [facility] PHOSPHORUS 2020-02-11 03:56:00 Zheng Ortiz [facility] HEPATIC FUNCTION PANEL 2020-02-11 03:56:00 Yoil Gallagher [facility] LACTIC ACID, ARTERIAL 2020-02-11 03:56:00 Yoli Gallagher n [facility] PROCALCITONIN 2020-02-11 03:56:00 Yoli Gallagher [facility] CBC W/PLT COUNT & AUTO 2020-02-11 03:56:00 Zheng Ortiz [facility] (CELLAVISION MANUAL 2020-02-11 03:56:00 Zheng Ortiz [facility] DIFF) [facility] XR CHEST 1 VIEW 2020-02-11 02:22:00 Daniel [facility] PORTABLE/BEDSIDE [facility] Center POCT-GLUCOSE METER 2020-02-11 01:51:00 Ronald Coats [facility] Ce [facility]ter APTT 2020-02-11 00:51:00 Daniel [facility] BLOOD GAS, ARTERIAL 2020-02-10 23:43:00 Yoli Gallagher [facility] US GUIDE, VASCULAR 2020-02-10 22:45:24 Yoli Gallagher [facility] XR CHEST 1 VIEW 2020-02-10 22:15:00 FrantzFrank Eligio [facility] - PORTABLE/BEDSIDE [facility] BLOOD GAS, ARTERIAL 2020-02-10 20:41:00 Yoli Gallagher [facility] LACTIC ACID, ARTERIAL 2020-02-10 20:40:00 Yoli Gallagher [facility] 2D ECHO W/ DOPPLER 2020-02-10 18:11:16 Daniel [facility] (CW/PW/COLOR) [facility] LACTIC ACID, VENOUS 2020-02-10 17:28:00 Daniel [facility] PROTHROMBIN TIME/INR 2020-02-10 17:28:00 [facility] APTT 2020-02-10 17:28:00 [facility] PROCAL[facility]IN 2020-02-10 17:28:00 [facility] TROPONIN I 2020-02-10 17:28:00 [facility] HEPATIC FUNCTION PANEL 2020-02-10 17:28:00 [facility] COMPREHENSIVE METABOLIC 2020-02-10 17:28:00 Aurelio Traore [facility] CBC W/PLT COUNT & AUTO 2020-02-10 17:28:00 Daniel [facility] (CELLAVISION MANUAL 2020-02-10 17:28:00 [facility] - DIFF) [facility] Center BLOOD GAS, ARTERIAL 2020-02-10 17:27:00 [facility] POCT-GLUCOSE METER 2020-02-10 17:26:00 Roanld Coats [facility] nter TROPONIN I 2020-02-10 15:22:00 Kathy Calzada [facility] COMPREHENSIVE METABOLIC 2020-02-10 15:22:00 Daniel [facility] BLOOD GAS, ARTERIAL 2020-02-10 15:21:00 Daniel [facility] POCT-GLUCOSE METER 2020-02-10 15:20:00 Ronald Coats [facility] Ce nter XR CHEST 1 VIEW 2020-02-10 14:30:00 Daniel [facility] PORTABLE/BEDSIDE [facility] SPUTUM CULTURE + GRAM 2020-02-10 12:15:00 Zheng [facility] APTT 2020-02-10 12:15:00 Daniel [facility] CT ABDOMEN/PELVIS WITH 2020-02-10 11:41:00 Daniel [facility] IV CONTRAST [facility] CT CHEST WITH IV 2020-02-10 11:41:00 Eulogio Elder [facility] APTT 2020-02-10 09:04:00 Daniel [facility] TROPONIN I 2020-02-10 07:51:00 Zheng [facility] POCT-GLUCOSE METER 2020-02-10 05:58:00 Ronald Coats [facility] nter BLOOD GAS, ARTERIAL 2020-02-10 04:59:00 Zheng [facility] CT BRAIN WITHOUT IV 2020-02-10 04:34:00 Zheng [facility] POCT-GLUCOSE METER 2020-02-10 03:50:00 Ronald Coats [facility] nter BLOOD CULTURE 2020-02-10 03:41[facility] 2020-02-10 03:41:00 [facility] URINALYSIS W/ REFLEX 2020-02-10 03:41:[address] [facility] URINE CULTURE [facility] XR CHEST 1 VIEW 2020-02-10 03:04:00 [facility]IDE Medical [place] CALCIUM, IONIZED 2020-02-10 01:50:00 Zheng [facility] CBC W/PLT COUNT & AUTO 2020-02-10 01:50:00 Zheng Ortiz [facility] DIFFERENTIAL [facility] (CELLAVISION MANUAL 2020-02-10 01:50:00 Zheng Ortiz [facility] - DIFF) [facility] BASIC METABOLIC PANEL 2020-02-10 01:48:00 [facility] ([facility] MAGNESIUM 2020-02-10 01:48:00 Zheng Ortiz [facility] PHOSPHORUS 2020-02-10 01:48:00 Zheng Ortiz [facility] TROPONIN I 2020-02-10 01:48:00 Zheng [facility] BLOOD GAS, ARTERIAL 2020-02-10 01:48:00 Zheng [facility] LACTIC ACID, ARTERIAL 2020-02-10 01:48:00 [facility] PROCALCITONIN 2020-02-10 01:48:00 Zheng [facility] APTT 2020-02-10 01:48:00 Daniel [facility] NC INSERT 2020-02-10 01:22:04 Zheng [facility] - CATH,ART,PERCUT,[facility] M POCT-GLUCOSE METER 2020-02-09 23:36:00 Ronald Coats [facility] Ce nter MR BRAIN WITH & WITHOUT 2020-02-09 22:05:00 Aurelio Traore [facility] IV CONTRAST [facility] POCT-GLUCOSE METER 2020-02-09 17:55:00 Ronald Coats [facility] Ce nter APTT 2020-02-09 17:52:00 Aurelio Traore [facility] PT/APTT 2020-02-09 17:52:00 Ronald Coats [facility] Ce nter XR CHEST 1 VIEW 2020-02-09 14:22:00 Yudi Thompson Jez [facility]/BEDSIDE [facility] POCT-GLUCOSE METER 2020-02-09 12:28:00 Ronald Coats [facility] Ce nter HSV 1/2 PCR, QUALITATIVE 2020-02-09 11:57:00 Loly Neville Chetan cespedes [facility] CBC (HEMOGRAM ONLY) 2020-02-09 11:57:00 Aurelio Traore [facility] APTT 2020-02-09 11:57:00 Aurelio Traore [facility] POCT-GLUCOSE METER 2020-02-09 06:00:00 Ronald Coats [facility] Ce nter BASIC METABOLIC PANEL 2020-02-09 04:25:00 Evi Snachez [facility] (7) [facility] MAGNESIUM 2020-02-09 04:25:00 Zheng Ortiz [facility] PHOSPHORUS 2020-02-09 04:25:00 Zheng Ortiz [facility] CBC W/PLT COUNT & AUTO 2020-02-09 04:25:00 Zheng Ortiz lff [facility] POCT-GLUCOSE METER 2020-02-08 23:47:00 Ronald Coats [facility] Ce nter POCT-GLUCOSE METER 2020-02-08 18:54:00 Ronald Coats [facility] Ce nter HC LAB HIV-1 AG 2020-02-08 12:24:00 Jez Coates [facility] - W/HIV-1&2 AB [facility] RPR 2020-02-08 12:24:00 Jez Coates [facility] POCT-GLUCOSE METER 2020-02-08 11:21:00 Ronald Coats, [facility] Ce ntjb [place] LUMBAR PUNCTURE 2020-02-08 10:41:00 Zheng Ortiz [facility] IMAGE-GUIDED [facility] POCT-GLUCOSE METER 2020-02-08 08:34:00 Ronald Coats [facility] Ce ntjb BASIC METABOLIC PANEL 2020-02-08 04:10:00 Daniel Shahidcorrina [facility] (7) [facility] MAGNESIUM 2020-02-08 04:10:00 Zheng Ortiz [facility] PHOSPHORUS 2020-02-08 04:10:00 Zheng Ortiz [facility] CBC W/PLT COUNT & AUTO 2020-02-08 04:10:00 Zheng Ortiz [facility] POCT-GLUCOSE METER 2020-02-08 01:11:00 Ronald Coats [facility] Ce nter POCT-GLUCOSE METER 2020-02-07 17:33:00 Ronald Coats, [facility] ntjb SPUTUM CULTURE + GRAM 2020-02-07 16:37:00 Zheng Ortiz [facility] [place] ANTIBODIES 2020-02-07 14:09:00 [facility] (IGG, IGM) [facility] CBC (HEMOGRAM ONLY) 2020-02-07 14:09:00 Zheng Ortiz [facility] VANCOMYCIN LEVEL, RANDOM 2020-02-07 14:09:00 Janusz Harding [facility] POCT-GLUCOSE METER 2020-02-07 12:18:00 Ronald Coats [facility] Ce ntjb HC VENOUS DOPPLER EXT 2020-02-07 12:06:00 Zheng Ortiz [facility] VENOUS DOPPLER LEGS 2020-02-07 11:33:00 Zheng Ortiz [facility] BILATERAL [facility] [place] CEREBRAL 4 VESSEL 2020-02-07 10:15:00 Zheng Ortiz [facility] ANGIOGRAM [facility] POCT-GLUCOSE METER 2020-02-07 06:29:00 Ronald Coats [facility] Ce nter BASIC METABOLIC PANEL 2020-02-07 05:18:00 Evi Sanchez [facility] () [facility] MAGNESIUM 2020-02-07 05:18:00 Zheng Ortiz [facility] PHOSPHORUS 2020-02-07 05:18:00 Zheng Ortiz [facility] PROTHROMBIN TIME/INR 2020-02-07 05:18:00 Yudi Thompson [facility] PT/APTT 2020-02-07 05:18:00 Yudi Thompson [facility] CBC W/PLT COUNT & AUTO 2020-02-07 05:18:00 Evi Sanchez [facility] POCT-GLUCOSE METER 2020-02-07 01:12:00 Ronald Coats [facility] nter POCT-GLUCOSE METER 2020-02-06 17:48:00 Ronald Coats [facility] Ce nter BASIC METABOLIC PANEL 2020-02-06 15:48:00 Zheng Ortiz [facility] () [facility] PROCALCITONIN 2020-02-06 15:48:00 Aurelio Traore [facility] AMYLASE 2020-02-06 15:48:00 [facility] LIPASE 2020-02-06 15:48:00 Daniel [facility] HEPATIC FUNCTION PANEL 2020-02-06 15:48:00 Evi Sanchez [facility] URINALYSIS W/ REFLEX 2020-02-06 15:35:00 [facility] URINE CULTURE [facility] BLOOD CULTURE 2020-02-06 12:33:00 [facility] SARS-COV2/RT-PCR ([facility] & 2020-02-06 12:33:00 Zheng Ortiz [facility] - REF LABS) [facility] POCT-GLUCOSE METER 2020-02-06 12:12:00 Ronald Coats [facility] Medical nter 2D ECHO W/ DOPPLER 2020-02-06 10:59:39 [facility] XR CHEST 1 VIEW 2020-02-06 09:41:00 [facility] PORTABLE/BEDSIDE [facility] POCT-GLUCOSE METER 2020-02-06 08:31:00 Carl Owens I. [facility] BASIC METABOLIC PANEL 2020-02-06 04:05:00 [facility] (7) [facility] MAGNESIUM 2020-02-06 04:05:00 Zheng Ortiz [facility] PHOSPHORUS 2020-02-06 04:05:00 Zheng Ortiz [facility] CBC W/PLT COUNT & AUTO 2020-02-06 04:05:00 [facility] S t [facility] DIFFERENTIAL [facility] (CELLAVISION MANUAL 2020-02-06 04:05:00 Daniel [facility] - DIFF) [facility] POCT-GLUCOSE METER 2020-02-05 21:36:00 Carl Owens I. [facility] POCT-GLUCOSE METER 2020-02-05 15:55:00 Carl Owens I. [facility] BASIC METABOLIC PANEL 2020-02-05 05:26:00 [facility] (7) [facility] MAGNESIUM 2020-02-05 05:26:00 Zheng Ortiz [facility] PHOSPHORUS 2020-02-05 05:26:00 Zheng Ortiz [facility] VANCOMYCIN LEVEL, TROUGH 2020-02-05 05:26:00 Aurelio Traore [facility] CBC W/PLT COUNT & AUTO 2020-02-05 05:26:00 DanielEvi [facility] S t [facility] DIFFERENTIAL [facility] (CELLAVISION MANUAL 2020-02-05 05:26:[facility] POCT-GLUCOSE METER 2020-02-05 00:04:00 Carl Owens [facility]. [facility] POTASSIUM 2020-02-04 18:36:00 Zheng Ortiz [facility] MAGNESIUM 2020-02-04 18:36:00 Zheng Ortiz [facility] POCT-GLUCOSE METER 2020-02-04 17:29:00 Carl Owens [facility]. [facility] POCT-GLUCOSE METER 2020-02-04 13:19:00 Carl Owens I. [facility] PROCALCITONIN 2020-02-04 10:35:00 Aurelio Traore [facility] XR CHEST 1 VIEW 2020-02-04 10:29:00 Loly Neville [facility] PORTABLE/BEDSIDE Medical Center CT BRAIN WITHOUT IV 2020-02-04 05:03:00 [facility] CBC W/PLT COUNT & AUTO 2020-02-04 04:01:00 [facility]onda [facility] S t [facility] DIFFERENTIAL [facility] BASIC METABOLIC PANEL 2020-02-04 04:00:00 [facility] (7) [facility] MAGNESIUM 2020-02-04 04:00:00 Zheng Ortiz [facility] PHOSPHORUS 2020-02-04 04:00:00 Zheng Ortiz [facility] POCT-GLUCOSE METER 2020-02-04 00:16:00 Carl Owens [facility]. [facility] POCT-GLUCOSE METER 2020-02-03 17:46:00 Carl Owens [facility]. [facility] POCT-GLUCOSE METER 2020-02-03 12:01:00 Carl Owens I. [facility] POCT-GLUCOSE METER 2020-02-03 07:25:00 Carl Owens [facility]. [facility] URINALYSIS W/ REFLEX 2020-02-03 07:17:00 Nikki Chowdary [facility] URINE CULTURE [facility] POCT-GLUCOSE METER 2020-02-03 06:12:00 Carl Owens [facility]. [facility] SPUTUM CULTURE + GRAM 2020-02-03 04:51:00 Yoli Gallagher [facility] BASIC METABOLIC PANEL 2020-02-03 04:49:00 Evi Sanchez [facility] (7) [facility] MAGNESIUM 2020-02-03 04:49:00 Zheng Ortiz [facility] PHOSPHORUS 2020-02-03 04:49:00 Zheng Ortiz [facility] LACTIC ACID, VENOUS 2020-02-03 04:49:00 Yoli Gallagher [facility] CBC W/PLT COUNT & AUTO 2020-02-03 04:49:00 Evi Sanchez [facility] S [facility] DIFFERENTIAL [facility] US GUIDE, VASCULAR 2020-02-03 04:24:37 Yoli Gallagher [facility] POCT-GLUCOSE METER 2020-02-03 00:21:00 Carl Owens [facility] XR CHEST 1 VIEW 2020-02-02 20:24:00 Yoli Gallagher [facility] PORTABLE/BEDSIDE [facility] PROCALCITONIN 2020-02-02 19:42:00 Nikki Chowdary [facility] LACTIC ACID, VENOUS 2020-02-02 19:42:00 Ricarda [facility] Edson [facility] HEMOGLOBIN AND 2020-02-02 19:42:00 Marco Jarquin [facility] es - HEMATOCRIT [facility] POCT-GLUCOSE METER 2020-02-02 19:32:00 Carl Owens [facility] CT BRAIN WITHOUT IV 2020-02-02 19:14:00 Nikki Chowdary [facility] BLOOD CULTURE 2020-02-02 17:50:00 [facility] URINALYSIS W/ REFLEX 2020-02-02 17:32:00 [facility] URINE CULTURE [facility] BLOOD CULTURE 2020-02-02 17:31:00 [facility] EEG AWAKE/ASLEEP AND 2020-02-02 16:16:00 [facility] SLEEP [facility] XR ABDOMEN / KUB 1 VIEW 2020-02-02 14:46:00 [facility] POCT-GLUCOSE METER 2020-02-02 11:33:00 Carl Owens [facility] CT BRAIN WITHOUT IV 2020-02-02 08:11:00 [facility] BASIC METABOLIC PANEL 2020-02-02 03:30:00 [facility] (7) [facility] MAGNESIUM 2020-02-02 03:30:00 Zheng Ortiz [facility] PHOSPHORUS 2020-02-02 03:30:00 Zheng Ortiz [facility] CBC W/PLT COUNT & AUTO 2020-02-02 03:30:00 Daniel [facility] S [facility] DIFFERENTIAL [facility] POCT-GLUCOSE METER 2020-02-01 18:12:00 Ronald Coats [facility] Medical Ce nter POTASSIUM 2020-02-01 16:48:00 Zheng Ortiz [facility] MAGNESIUM 2020-02-01 16:48:00 Zheng Ortiz [facility] POCT-GLUCOSE METER 2020-02-01 12:50:00 Ronald Coats [facility] Ce nter NV CEREBRAL 4 VESSEL 2020-02-01 10:00:00 Med Jeffrey [facility] ANGIOGRAM [facility] POCT-GLUCOSE METER 2020-02-01 06:19:00 Ronald Coats [facility] Ce nter LIPID PANEL 2020-02-01 04:49:00 Salinas Breen [facility] MAGNESIUM 2020-02-01 04:49:00 Daniel [facility] PHOSPHORUS 2020-02-01 04:49:00 Daniel [facility] BASIC METABOLIC PANEL 2020-02-01 04:49:00 [facility] (7) [facility] CBC W/PLT COUNT & AUTO 2020-02-01 04:49:00 Daniel [facility] POCT-GLUCOSE METER 2020-02-01 00:39:00 Ronald Coats [facility] Ce nter SARS-COV2/RT-PCR ([facility] & 2020-01-31 17:38:00 Zheng Ortiz [facility] REF [facility]) [facility] POCT-GLUCOSE METER 2020-01-31 16:38:00 Ronald Coats [facility] Ce nter CTA BRAIN 2020-01-31 16:13:00 Daniel [facility] CT/CTA CAROTID 2020-01-31 16:13:00 [facility] HEPATIC FUNCTION PANEL 2020-01-31 14:50:00 Daniel [facility] PROTHROMBIN TIME/INR 2020-01-31 14:50:00 Daniel [facility] APTT 2020-01-31 14:50:[facility] 2020-01-31 14:45:[address] [facility] (7[facility] CBC W/PLT COUNT & AUTO 2020-01-31 14:45:[address] [facility] - DIFFERENTIAL [facility] Plan of Care Planned Activity Planned Date Details Comments Source Future Scheduled 2019-12-13 INFLUENZA VACCINE (#1) [facility] 00:[facility]:00 [code = [facility] Medical Ce nter VACCINE (#1)] Future Scheduled 2019-04-[address] [facility] - Test 00:00:00 (12+) [code = [facility] DEPRESSION SCREENING (12+)] Future Scheduled 2019-04-13 Medicare IPPE (WELCOME [facility] Test 00:00:00 TO MEDICARE) [code = [facility] Medicare IPPE (WELCOME TO MEDICARE)] Future Scheduled 2001 PNEUMOCOCCAL 65+ YRS [facility] - Test 00:00:00 (1 of 1 - [facility] [id number] PCV13) [code = PNEUMOCOCCAL 65+ YRS (1 of 1 - SYOD76_Alszsan PCV13)] Encounters Start End Encounter Admission Attending Care Care Encounter Source Date/Time Date/Time Type Type Clinicians Facility Department ID 2020-03-16 2020-03-21 [facility] Nino Calderon [facility] [id number] 08:37:00 13:44:00 Encounter [place] [id number] [place] [id number] [place] [id number] Results Test Description Test Time Test Comments Results Result Comments Source Blood Culture - Routine (Left Venipuncture) 2020-03-15 11:01 :00 Test Item Value Reference Range Interpretation Comme nts Result (test code = 6463-4) No growth in 5 days [id number] 11:01:00 Test Item Value Reference Range Interpretation Comments CULTURE (BEAKER) (test No growth in 5 days code = 1095) BLOOD [id number] 11:01:00 Test Item Value Reference Range Interpretation Comments CULTURE (BEAKER) (test No growth in 5 days code = 1095) POC-Glucose [id number] 12:22:00 Test Item Value Reference Range Interpretation Comments POC-Glucose Meter (test 150 mg/dL 70-110 H : KAREN SAL AT [facility] code = 1538) [address] [facility], [address]: Loader Magazine Grinder/Techni martin ID = [id number] for DANNA ADHIKARI Lab Interpretation (test Abnormal code = 69704-3) [facility] [id number] 12:22:00 Test Item Value Reference Range Interpretation Comments POC-GLUCOSE METER 150 mg/dL 70-110 H : [facility] ([facility]ER[facility] (test code [facility], = 1538) [address]: Loader Magazine Grinder/Techni martin ID = [id number] for BEATRIZ FELDMAN POCT-GLUCOSE [id number] 05:42:00 Test Item Value Reference Range Interpretation Comments POC-GLUCOSE METER 143 mg/dL 70-110 H : [facility] (BEAKER[facility] (test code = [facility], 1538) [address]: Loader Magazine Grinder/Techni martin ID = [id number] for DE NNIS, DARLINE POCT-GLUCOSE [id number] 23:49:00 Test Item Value Reference Range Interpretation Comments POC-GLUCOSE METER 140 mg/dL 70-110 H : [facility] (BE[facility]ER[facility] (test code = [facility], 1538) [address]: Loader Magazine Grinder/Techni martin ID = [id number] for DE NNIS, DARLINE SARS-CoV2/RT-PCR (Asymptomatic ONLY)2020-03-13 22:09:00 Test Item Value Reference Range Interpretation Comments SARS-COV2/RT-PCR Negative Not Detected, (test code = Negative, See 48172-9) external report for linked test SARS-COV-2 [facility] PERFORMING LAB (test code = 85894-7) JUDI (test code = Negative result for this JUDI) test determines that SARS-CoV-2 RNA was not present in the [...] Fuentes SARS-CoV-2 assay. Fact Sheet for Healthcare Providers:https://www.BioDigital/luigi/RT_SA ZK-UbQ-8_PGZ_Zqcn_Bbsnb_ 51-275692.pdf Fact Sheet for Healthcare Patients:https://www.Xola.Boombotix/luigi/RT_SAR L-SvC-7_Dikltvr_Wdzg_Nuq et_EN_51-078643C8.pdf Performing Laboratory:[place] [address] [address]-COV2/RT-PCR ([facility] REF [facility]S)2020-03-13 22:09:00 Test Item Value Reference Range Interpretation Comments SARS-COV2/RT-PCR (test Negative Not Detected, Negative, code = 7798685) See external report for linked test SARS-COV-2 PERFORMING LAB [facility] (test code = 3264763) Negative result for this test determines that SARS-CoV-2 RNA was not present in the specimen above the Limit of Detection (LOD). However, Negative results do not preclude SARS-CoV-2 infection and should not be used as the sole basis for treatment or patient management decisions. Negative results mustbe combined with clinical observations, patient history, and epidemiological information. A false negative result may occur if a specimen is improperly collected, transported or handled. A false negative result should be considered if patient's recent exposures or clinical presentation indicate that COVID-19 (SARS-CoV-2) is likely and diagnostic tests for other causes of illness are negative. Re-testing should be considered in cases of suspected false negatives.The limit of detection for this assay is 100 copies/mL.This SARS CoV-2 test is a real-time RT-PCR test intended for the qualitative detection of nucleic acid from SARS-CoV-2 in a nasopharyngeal swab specimen collected from individuals susp ected of COVID-19 by their healthcare provider.This test has not been Food and Drug [...] is revoked under Section 564(g) of the Act.Testing was performed using the Fuentes SARS-CoV-2 assay.Fact Sheet for Healthcare Providers:https://www.molecular.fuentes/luigi/ JC_SNQT-ZbW-3_YNZ_Rmlk_Cgdtr_32-552688.pdfFact Sheet for Healthcare Patients:https://www.molecular.ab cony/luigi/YC_OFCT-TfF-4_Wnepntd_Kgno_Keptp_PN_36-395843X6.pdfPerforming Laboratory:[facility] [place] [address] POCT-GLUCOSE [id number] 18:34:00 Test Item Value Reference Range Interpretation Comments POC-GLUCOSE METER 101 mg/dL 70-110 : TESTED A Paresh [facility] [address] (SINDY) (test code = KENYON Haney [facility], 1538) [address]: Loader Magazine Grinder/Techni martin ID = [id number] for Moriah Jones POCT-GLUCOSE [id number] 12:32:00 Test Item Value Reference Range Interpretation Comments POC-GLUCOSE METER 116 mg/dL 70-110 H : TESTED A T [facility] 67[address] (BEAKER) (test code = [facility], 1538) [address]: Loader Magazine Grinder/Techni martin ID = [id number] for RO DGBRAULIO SANDERSECA POCT-GLUCOSE [id number] 06:16:00 Test Item Value Reference Range Interpretation Comments POC-GLUCOSE METER 109 mg/dL 70-110 : TESTED A T [facility] 67[address] (BEAKER) (test code = [facility], 1538) [address]: Loader Magazine Grinder/Techni martin ID = [id number] for DE NNIS, DARLINE POCT-GLUCOSE [id number] 23:37:00 Test Item Value Reference Range Interpretation Comments POC-GLUCOSE METER 118 mg/dL 70-110 H : TESTED A T [facility] 67[address] (BEAKER) (test code = [facility], 1538) [address]: Loader Magazine Grinder/Techni martin ID = [id number] for DE NNIS, DARLINE POCT-GLUCOSE [id number] 12:48:00 Test Item Value Reference Range Interpretation Comments POC-GLUCOSE METER 122 mg/dL 70-110 H : TESTED A T [facility] 67[address] (BEAKER) (test code = [facility], 1538) [address]: Loader Magazine Grinder/Techni martin ID = [id number] for RO DGTOMMY, BRAULIOECA POCT-GLUCOSE [id number] 06:32:00 Test Item Value Reference Range Interpretation Comments POC-GLUCOSE METER 123 mg/dL 70-110 H : TESTED A T [facility] 6720 (BEAKER) (test code = [facility], [facility]8) [address]: Loader Magazine Grinder/Techni martin ID = [id number] for MESHA POTTER JARON CBC with platelet count + automated [id number] 05:12:00 Test Item Value Reference Range Interpretation Comments WBC (test code = 6690-2) 12.2 3.5- 10.5 K/L H RBC (test code = 789-8) 4.12 4.63- 6.08 M/L L MCHC (test code = 786-4) 31.4 32.3- 36.5 GM/DL L Hematocrit (test code = 4544-3) 41.4 % 40.1-51 MCV (test code = 787-2) 100.5 fL 79-92.2 H MCH (test code = 785-6) 31.6 pg 25.7-32.2 RDW (test code = 788-0) 14.0 % 11.6-14.4 Platelets (test code = 777-3) 500 150- 450 K/CU MM H MPV (test code = 02392-2) 10.7 fL 9.4-12.4 nRBC (test code = 413) 0 0- 0 /100 WBC % Neutros (test code = 429) 78 % % Lymphs (test code = 430) 12 % % Monos (test code = 431) 8 % % Eos (test code = 432) 2 % % Baso (test code = 437) 1 % # Neutros (test code = 670) 9.54 1.78- 5.38 K/L H # Lymphs (test code = 414) 1.41 1.32- 3.57 K/L # Monos (test code = 415) 0.91 0.30- 0.82 K/L H # Eos (test code = 416) 0.19 0.04- 0.54 K/L # Baso (test code = 417) 0.08 0.01- 0.08 K/L Immature Granulocytes-Relative 1 % 0-1 (test code = 2801) Lab Interpretation (test code = Abnormal 00453-9) [facility] W/PLT COUNT & AUTO [id number] 05:12:00 Test Item Value Reference Range Interpretation Comments WHITE BLOOD CELL COUNT (BEAKER) 12.2 K/ L 3.5-10.5 H (test code = 775) RED BLOOD CELL COUNT (BEAKER) 4.12 M/ L 4.63-6.08 L (test code = 761) HEMOGLOBIN (BEAKER) (test code = 13.0 GM/DL 13.7-17.5 L 410) HEMATOCRIT (BEAKER) (test code = 41.4 % 40.1-51.0 411) MEAN CORPUSCULAR VOLUME (BEAKER) 100.5 fL 79.0-92.2 H (test code = 753) MEAN CORPUSCULAR HEMOGLOBIN 31.6 pg 25.7-32.2 (BEAKER) (test code = 751) MEAN CORPUSCULAR HEMOGLOBIN CONC 31.4 GM/DL 32.3-36.5 L (BEAKER) (test code = 752) RED CELL DISTRIBUTION WIDTH 14.0 % 11.6-14.4 (BEAKER) (test code = 412) PLATELET COUNT (BEAKER) (test 500 K/CU MM 150-450 H code = 756) MEAN PLATELET VOLUME (BEAKER) 10.7 fL 9.4-12.4 (test code = 754) NUCLEATED RED BLOOD CELLS 0 /100 WBC 0-0 (BEAKER) (test code = 413) NEUTROPHILS RELATIVE PERCENT 78 % (BEAKER) (test code = 429) LYMPHOCYTES RELATIVE PERCENT 12 % (BEAKER) (test code = 430) MONOCYTES RELATIVE PERCENT 8 % (BEAKER) (test code = 431) EOSINOPHILS RELATIVE PERCENT 2 % (BEAKER) (test code = 432) BASOPHILS RELATIVE PERCENT 1 % (BEAKER) (test code = 437) NEUTROPHILS ABSOLUTE COUNT 9.54 K/ L 1.78-5.38 H (BEAKER) (test code = 670) LYMPHOCYTES ABSOLUTE COUNT 1.41 K/ L 1.32-3.57 (BEAKER) (test code = 414) MONOCYTES ABSOLUTE COUNT (BEAKER) 0.91 K/ L 0.30-0.82 H (test code = 415) EOSINOPHILS ABSOLUTE COUNT 0.19 K/ L 0.04-0.54 (BEAKER) (test code = 416) BASOPHILS ABSOLUTE COUNT (BEAKER) 0.08 K/ L 0.01-0.08 (test code = 417) IMMATURE GRANULOCYTES-RELATIVE 1 % 0-1 PERCENT (BEAKER) (test code = 2801) POCT-GLUCOSE [id number] 23:43:00 Test Item Value Reference Range Interpretation Comments POC-GLUCOSE METER 120 mg/dL 70-110 H : TESTED A T [facility] 6720 (BEAKER) (test [facility] = [facility] 1538[facility] [address]: Loader Magazine Grinder/Techni martin ID = [id number] for MESHA BEKANAVEED JARON POCT-GLUCOSE [id number] 17:32:00 Test Item Value Reference Range Interpretation Comments POC-GLUCOSE METER 122 mg/dL 70-110 H : TESTED A T [facility] 6720 (BEAKER) (test code = [place], 1538) [address]: Loader Magazine Grinder/Techni martin ID = [id number] for MAXIM JORDAN POCT-GLUCOSE [id number] 13:02:00 Test Item Value Reference Range Interpretation Comments POC-GLUCOSE METER 135 mg/dL 70-110 H : [facility] ([facility]AKER[facility] (test code = KENYON Haney [facility], 1538) [address]: Loader Magazine Grinder/Techni martin ID = [id number] for MAXIM JORDAN CBC W/PLT COUNT & AUTO [id number] 06:04:00 Test Item Value Reference Range Interpretation Comments WHITE BLOOD CELL COUNT (BEAKER) 18.4 K/ L 3.5-10.5 H (test code = 775) RED BLOOD CELL COUNT (BEAKER) 3.83 M/ L 4.63-6.08 L (test code = 761) HEMOGLOBIN (BEAKER) (test code = 12.2 GM/DL 13.7-17.5 L 410) HEMATOCRIT (BEAKER) (test code = 38.3 % 40.1-51.0 L 411) MEAN CORPUSCULAR VOLUME (BEAKER) 100.0 fL 79.0-92.2 H (test code = 753) MEAN CORPUSCULAR HEMOGLOBIN 31.9 pg 25.7-32.2 (BEAKER) (test code = 751) MEAN CORPUSCULAR HEMOGLOBIN CONC 31.9 GM/DL 32.3-36.5 L (BEAKER) (test code = 752) RED CELL DISTRIBUTION WIDTH 14.0 % 11.6-14.4 (BEAKER) (test code = 412) PLATELET COUNT (BEAKER) (test 513 K/CU MM 150-450 H code = 756) MEAN PLATELET VOLUME (BEAKER) 10.5 fL 9.4-12.4 (test code = 754) NUCLEATED RED BLOOD CELLS 0 /100 WBC 0-0 (BEAKER) (test code = 413) NEUTROPHILS RELATIVE PERCENT 88 % (BEAKER) (test code = 429) LYMPHOCYTES RELATIVE PERCENT 5 % (BEAKER) (test code = 430) MONOCYTES RELATIVE PERCENT 5 % (BEAKER) (test code = 431) EOSINOPHILS RELATIVE PERCENT 1 % (BEAKER) (test code = 432) BASOPHILS RELATIVE PERCENT 0 % (BEAKER) (test code = 437) NEUTROPHILS ABSOLUTE COUNT 16.07 K/ L 1.78-5.38 H (BEAKER) (test code = 670) LYMPHOCYTES ABSOLUTE COUNT 1.00 K/ L 1.32-3.57 L (BEAKER) (test code = 414) MONOCYTES ABSOLUTE COUNT (BEAKER) 1.00 K/ L 0.30-0.82 H (test code = 415) EOSINOPHILS ABSOLUTE COUNT 0.17 K/ L 0.04-0.54 (BEAKER) (test code = 416) BASOPHILS ABSOLUTE COUNT (BEAKER) 0.06 K/ L 0.01-0.08 (test code = 417) IMMATURE GRANULOCYTES-RELATIVE 1 % 0-1 PERCENT (BEAKER) (test code = 2801) POCT-GLUCOSE [id number] 05:46:00 Test Item Value Reference Range Interpretation Comments POC-GLUCOSE METER 149 mg/dL 70-110 H : TESTED A T [facility] 6720 (BEAKER) (test code = [facility], 1538) [address]: Loader Magazine Grinder/Techni martin ID = [id number] for MESHA HNSANGIE LUCIOTTA POCT-GLUCOSE [id number] 23:49:00 Test Item Value Reference Range Interpretation Comments POC-GLUCOSE METER 108 mg/dL 70-110 : TESTED A T [facility] 6720 (BEAKER) (test code = [facility], 1538) [address]: Loader Magazine Grinder/Techni martin ID = [id number] for MESHA HNSON, ANGIETTA POCT-GLUCOSE [id number] 17:08:00 Test Item Value Reference Range Interpretation Comments POC-GLUCOSE METER 133 mg/dL 70-110 H : TESTED A T [facility] 6720 (BEAKER) (test code = [facility], 1538) [address]: Loader Magazine Grinder/Techni martin ID = [id number] for NW AJIAKU, TELLO POCT-GLUCOSE [id number] 12:53:00 Test Item Value Reference Range Interpretation Comments POC-GLUCOSE METER 127 mg/dL 70-110 H : TESTED A T [facility] 6720 (BEAKER) (test code = [facility], 1538) [address]: Loader Magazine Grinder/Techni martin ID = [id number] for NW AJIAKU, TELLO Basic Metabolic [id number] 07:36:00 Test Item Value Reference Range Interpretation Comments Sodium (test code = 137 meq/L 136-019 0886-2) Potassium (test code = 4.4 meq/L 3.5-5.1 2823-3) Chloride (test code = 99 meq/L 98-107 2075-0) CO2 (test code = 28 meq/L 22-29 2028-9) BUN (test code = 33 mg/dL 7-21 H 3094-0) Creatinine (test code 0.63 mg/dL 0.57-1.25 = 2160-0) Glucose (test code = 137 mg/dL 70-105 H 2345-7) Calcium (test code = 8.9 mg/dL 8.4-10.2 68423-1) EGFR (test code = 122 mL/min/1.73 [place] [address]-3) NOT ACCURATE CREATININE CLEARANCE IN PREDICTING GLOMERULAR FILTRATION RATE . ESTIMATED GFR I S NOT APPLICABLE FOR DIALYSIS PATIENTS. JUDI (test code = JUDI) Loader Magazine Grinder ID - [id number] M Lab Interpretation Abnormal (test code = 74322-2) [facility] METABOLIC [id number] 07:36:00 Test Item Value Reference Range Interpretation Comments SODIUM (BEAKER) 137 meq/L 136-145 (test code = 381) POTASSIUM (BEAKER) 4.4 meq/L 3.5-5.1 (test code = 379) CHLORIDE (BEAKER) 99 meq/L 98-107 (test code = 382) CO2 (BEAKER) (test 28 meq/L 22-29 code = 355) BLOOD UREA NITROGEN 33 mg/dL 7-21 H (BEAKER) (test code = 354) CREATININE (BEAKER) 0.63 mg/dL 0.57-1.25 (test code = 358) GLUCOSE RANDOM 137 mg/dL 70-105 H (BEAKER) (test code = 652) CALCIUM (BEAKER) 8.9 mg/dL 8.4-10.2 (test code = 697) EGFR (BEAKER) (test 122 mL/min/1.73 ESTIM ATED GFR IS code = 1092) sq m NOT ACCURATE CREATININE CLEARANCE IN PREDICTING GLOMERULAR FILTRATION RATE . ESTIMATED GFR I S NOT APPLICABLE FOR DIALYSIS PATIEN TS. Loader Magazine Grinder ID - [id number] [facility] W/PLT COUNT & AUTO [id number] 07:22:00 Test Item Value Reference Range Interpretation Comments WHITE BLOOD CELL COUNT (BEAKER) 12.4 K/ L 3.5-10.5 H (test code = 775) RED BLOOD CELL COUNT (BEAKER) 3.92 M/ L 4.63-6.08 L (test code = 761) HEMOGLOBIN (BEAKER) (test code = 12.5 GM/DL 13.7-17.5 L 410) HEMATOCRIT (BEAKER) (test code = 39.5 % 40.1-51.0 L 411) MEAN CORPUSCULAR VOLUME (BEAKER) 100.8 fL 79.0-92.2 H (test code = 753) MEAN CORPUSCULAR HEMOGLOBIN 31.9 pg 25.7-32.2 (BEAKER) (test code = 751) MEAN CORPUSCULAR HEMOGLOBIN CONC 31.6 GM/DL 32.3-36.5 L (BEAKER) (test code = 752) RED CELL DISTRIBUTION WIDTH 14.2 % 11.6-14.4 (BEAKER) (test code = 412) PLATELET COUNT (BEAKER) (test 430 K/CU MM 150-450 code = 756) MEAN PLATELET VOLUME (BEAKER) 10.1 fL 9.4-12.4 (test code = 754) NUCLEATED RED BLOOD CELLS 0 /100 WBC 0-0 (BEAKER) (test code = 413) NEUTROPHILS RELATIVE PERCENT 79 % (BEAKER) (test code = 429) LYMPHOCYTES RELATIVE PERCENT 11 % (BEAKER) (test code = 430) MONOCYTES RELATIVE PERCENT 7 % (BEAKER) (test code = 431) EOSINOPHILS RELATIVE PERCENT 2 % (BEAKER) (test code = 432) BASOPHILS RELATIVE PERCENT 0 % (BEAKER) (test code = 437) NEUTROPHILS ABSOLUTE COUNT 9.84 K/ L 1.78-5.38 H (BEAKER) (test code = 670) LYMPHOCYTES ABSOLUTE COUNT 1.41 K/ L 1.32-3.57 (BEAKER) (test code = 414) MONOCYTES ABSOLUTE COUNT (BEAKER) 0.81 K/ L 0.30-0.82 (test code = 415) EOSINOPHILS ABSOLUTE COUNT 0.21 K/ L 0.04-0.54 (BEAKER) (test code = 416) BASOPHILS ABSOLUTE COUNT (BEAKER) 0.05 K/ L 0.01-0.08 (test code = 417) IMMATURE GRANULOCYTES-RELATIVE 1 % 0-1 PERCENT (BEAKER) (test code = 2801) POCT-GLUCOSE [id number] 06:20:00 Test Item Value Reference Range Interpretation Comments POC-GLUCOSE METER 118 mg/dL 70-110 H : TESTED A T [facility] 6720 (BEAKER) (test code = [facility], 1538) 14[address]: Loader Magazine Grinder/Techni martin ID = [id number] for LO PEZ, NADINA POCT-GLUCOSE [id number] 00:07:00 Test Item Value Reference Range Interpretation Comments POC-GLUCOSE METER 124 mg/dL 70-110 H : TESTED A T [facility] 6720 (BEAKER) (test code = [facility], 1538) 813[address]: Loader Magazine Grinder/Techni martin ID = [id number] for DE NNIS, DARLINE POCT-GLUCOSE [id number] 17:55:00 Test Item Value Reference Range Interpretation Comments POC-GLUCOSE METER 135 mg/dL 70-110 H : TESTED A T [facility] 6720 (BEAKER) (test code = [facility], 1538) 48991: Loader Magazine Grinder/Techni martin ID = [id number] for RO DGERS, JAMECA POCT-GLUCOSE [id number] 11:46:00 Test Item Value Reference Range Interpretation Comments POC-GLUCOSE METER 122 mg/dL 70-110 H : TESTED A T [facility] 6720 (BEAKER) (test code = [facility], 1538) 823[address]: Loader Magazine Grinder/Techni martin ID = [id number] for RO DGERS, JAMECA RAD, CHEST, 1 VIEW, NON [id number] 11:20:00Reason for exam:- >leukocytosisShould this be performed at the bedside?->Yes [facility] : 1935 Sex: MFINAL REPORT RAD, CHEST, 1 VIEW, NON DEPT INDICATION: leukocytosis C OMPARISON: March 01, 2020 FINDINGS: Portable frontal view of the chest. IMPRESSION: Support Lines: Interval extubation and removal of a left IJ central venous catheter. Lungs and pleura: Bibasilar subsegmental atelectasis. Small right effusion. No pneumothorax.Heart and mediastinum: Stable contours. Additional findings: None. Signed: JR Patrick Robert MDReport Verified Date/Time: 03/09/2020 11:20:36 Reading Location: [address] Transitional Reading Room XR chest 1 view portable / [id number] 11:20:00Interface, External Ris In - 03/09/2020 11:22 AM CSTFINAL REPORT RAD, CHEST, 1 VIEW, NON DEPT INDICATION: leukocytosis COMPARISON: March 01, 2020 FINDINGS: Portable frontal view of the chest. IMPRESSION: Support Lines: Interval extubation and removal of a left IJ central venous catheter. Lungs and pleura: Bibasilar subsegmental atelectasis. Small right effusion. No pneumot horax.Heart and mediastinum: Stable contours. Additional findings: None. Signed: JR Patrick Robert MDReport Verified Date/Time: 03/09/2020 11:20:36 Reading Location: [address] Transitional [facility] Reflex to [id number] 10:17:00 Test Item Value Reference Range Interpretation Comments Color, UA (test code = Yellow 5778-6) Clarity, UA (test code = Hazy 5767-9) Specific [place], UA (test 1.022 1.001-1.035 code = 5811-5) pH, UA (test code = 7.0 5.0-8.0 5803-2) Protein, UA (test code = 50 mg/dL Negative A 40456-3) Glucose, UA (test code = Negative Negative 365) Ketones, UA (test code = Negative Negative 2514-8) Bilirubin, UA (test code = Negative Negative 01552-2) Blood, UA (test code = Large Negative A 44852-2) Nitrite, UA (test code = Negative Negative 5802-4) Leukocytes, UA (test code Small Negative A = 5799-2) Urobilinogen, UA (test 0.2 mg/dL 0.2-1 code = 22897-7) RBC, UA (test code = 458 /HPF 93463-8) WBC, UA (test code = 0 /HPF 5821-4) Mucus (test code = 8247-9) Many Amorphous Crystals (test Rare code = 31048-9) Specimen Source (test code = 2795) JUDI (test code = JUDI) Loader Magazine Grinder ID - [auto]Loader Magazine Grinder ID - tech Lab Interpretation (test Abnormal code = 94160-1) [facility] [id number] 10:17:00 Test Item Value Reference Range Interpretation Comments COLOR (BEAKER) (test code = 470) Yellow CLARITY (BEAKER) (test code = 469) Hazy SPECIFIC GRAVITY UA (BEAKER) (test 1.022 1.001-1.035 code = 468) PH UA (BEAKER) (test code = 467) 7.0 5.0-8.0 PROTEIN UA (BEAKER) (test code = 50 mg/dL Negative A 464) GLUCOSE UA (BEAKER) (test code = Negative Negative 365) KETONES UA (BEAKER) (test code = Negative Negative 371) BILIRUBIN UA (BEAKER) (test code = Negative Negative 462) BLOOD UA (BEAKER) (test code = 461) Large Negative A NITRITE UA (BEAKER) (test code = Negative Negative 465) LEUKOCYTE ESTERASE UA (BEAKER) Small Negative A (test code = 466) UROBILINOGEN UA (BEAKER) (test code 0.2 mg/dL 0.2-1.0 = 463) RBC UA (BEAKER) (test code = 519) 458 /HPF WBC UA (BEAKER) (test code = 520) 0 /HPF MUCUS (BEAKER) (test code = 1574) Many AMORPHOUS CRYSTALS (BEAKER) (test Rare code = 1584) SOURCE(BEAKER) (test code = 2795) Loader Magazine Grinder ID - [auto]Loader Magazine Grinder ID - techPOCT-GLUCOSE [id number] 06:03:00 Test Item Value Reference Range Interpretation Comments POC-GLUCOSE METER 144 mg/dL 70-110 H : TESTED A T [facility] 6720 (BEAKER) (test code = [place], 1538) [address]: Loader Magazine Grinder/Techni martin ID = [id number] for DE NNIS, DARLINE CBC W/PLT COUNT & AUTO [id number] 05:52:00 Test Item Value Reference Range Interpretation Comments WHITE BLOOD CELL COUNT (BEAKER) 19.7 K/ L 3.5-10.5 H (test code = 775) RED BLOOD CELL COUNT (BEAKER) 4.02 M/ L 4.63-6.08 L (test code = 761) HEMOGLOBIN (BEAKER) (test code = 12.6 GM/DL 13.7-17.5 L 410) HEMATOCRIT (BEAKER) (test code = 40.0 % 40.1-51.0 L 411) MEAN CORPUSCULAR VOLUME (BEAKER) 99.5 fL 79.0-92.2 H (test code = 753) MEAN CORPUSCULAR HEMOGLOBIN 31.3 pg 25.7-32.2 (BEAKER) (test code = 751) MEAN CORPUSCULAR HEMOGLOBIN CONC 31.5 GM/DL 32.3-36.5 L (BEAKER) (test code = 752) RED CELL DISTRIBUTION WIDTH 14.2 % 11.6-14.4 (BEAKER) (test code = 412) PLATELET COUNT (BEAKER) (test 528 K/CU MM 150-450 H code = 756) MEAN PLATELET VOLUME (BEAKER) 10.4 fL 9.4-12.4 (test code = 754) NUCLEATED RED BLOOD CELLS 0 /100 WBC 0-0 (BEAKER) (test code = 413) NEUTROPHILS RELATIVE PERCENT 86 % (BEAKER) (test code = 429) LYMPHOCYTES RELATIVE PERCENT 7 % (BEAKER) (test code = 430) MONOCYTES RELATIVE PERCENT 6 % (BEAKER) (test code = 431) EOSINOPHILS RELATIVE PERCENT 1 % (BEAKER) (test code = 432) BASOPHILS RELATIVE PERCENT 0 % (BEAKER) (test code = 437) NEUTROPHILS ABSOLUTE COUNT 16.82 K/ L 1.78-5.38 H (BEAKER) (test code = 670) LYMPHOCYTES ABSOLUTE COUNT 1.40 K/ L 1.32-3.57 (BEAKER) (test code = 414) MONOCYTES ABSOLUTE COUNT (BEAKER) 1.17 K/ L 0.30-0.82 H (test code = 415) EOSINOPHILS ABSOLUTE COUNT 0.09 K/ L 0.04-0.54 (BEAKER) (test code = 416) BASOPHILS ABSOLUTE COUNT (BEAKER) 0.06 K/ L 0.01-0.08 (test code = 417) IMMATURE GRANULOCYTES-RELATIVE 1 % 0-1 PERCENT (BEAKER) (test code = 2801) BASIC METABOLIC [id number] 05:41:00 Test Item Value Reference Range Interpretation Comments SODIUM (BEAKER) 138 meq/L 136-145 (test code = 381) POTASSIUM (BEAKER) 5.0 meq/L 3.5-5.1 (test code = 379) CHLORIDE (BEAKER) 96 meq/L 98-107 L (test code = 382) CO2 (BEAKER) (test 32 meq/L 22-29 H code = 355) BLOOD UREA NITROGEN 35 mg/dL 7-21 H (BEAKER) (test code = 354) CREATININE (BEAKER) 0.76 mg/dL 0.57-1.25 (test code = 358) GLUCOSE RANDOM 131 mg/dL 70-105 H (BEAKER) (test code = 652) CALCIUM (BEAKER) 9.4 mg/dL 8.4-10.2 (test code = 697) EGFR (BEAKER) (test 98 mL/min/1.73 ESTIMA HAWK GFR IS code = 1092) sq m NOT ACCURATE CREATININE CLEARANCE IN PREDICTING GLOMERULAR FILTRATION RATE . ESTIMATED GFR I S NOT APPLICABLE FOR DIALYSIS PATIEN TS. Loader Magazine Grinder ID - EDASIPOCT-GLUCOSE [id number] 23:51:00 Test Item Value Reference Range Interpretation Comments POC-GLUCOSE METER 142 mg/dL 70-110 H : TESTED A T [facility] 6720 (BEAKER) (test code = [facility] [place], 1538) 79951: Loader Magazine Grinder/Techni martin ID = [id number] for DE NNIS, DARLINE POCT-GLUCOSE [id number] 17:50:00 Test Item Value Reference Range Interpretation Comments POC-GLUCOSE METER 137 mg/dL 70-110 H : [facility] ([facility] (test code = [facility], 1538) 91236: Loader Magazine Grinder/Techni martin ID = [id number] for MOSES GAINESINEZ, QUIN POCT-GLUCOSE [id number] 12:04:00 Test Item Value Reference Range Interpretation Comments POC-GLUCOSE METER 126 mg/dL 70-110 H : [facility] (test code = [facility], 1538) 08397: Loader Magazine Grinder/Techni martin ID = [id number] for MOSES GAINESINEZ, QUIN POCT-GLUCOSE [id number] 06:17:00 Test Item Value Reference Range Interpretation Comments POC-GLUCOSE METER 122 mg/dL 70-110 H : Notified RN/MD: ([facility]) (test code = TESTED AT [facility] 6720 1538) [facility], [address]: Loader Magazine Grinder/Techni martin ID = [id number] for LUCY MISTRY [id number] 05:59:00 Test Item Value Reference Range Interpretation Comments Phosphorus (test code = 4.2 mg/dL 2.3-4.7 2777-1) JUDI (test code = JUDI) Loader Magazine Grinder ID - RONNY L Lab Interpretation (test Normal code = 14360-1) [facility] 05:59:00 Test Item Value Reference Range Interpretation Comments PHOSPHORUS (BEAKER) (test code = 4.2 mg/dL 2.3-4.7 604) Loader Magazine Grinder ID - RONNY LCBC W/PLT COUNT & AUTO [id number] 05:35:00 Test Item Value Reference Range Interpretation Comments WHITE BLOOD CELL COUNT (BEAKER) 14.3 K/ L 3.5-10.5 H (test code = 775) RED BLOOD CELL COUNT (BEAKER) 3.99 M/ L 4.63-6.08 L (test code = 761) HEMOGLOBIN (BEAKER) (test code = 12.6 GM/DL 13.7-17.5 L 410) HEMATOCRIT (BEAKER) (test code = 40.0 % 40.1-51.0 L 411) MEAN CORPUSCULAR VOLUME (BEAKER) 100.3 fL 79.0-92.2 H (test code = 753) MEAN CORPUSCULAR HEMOGLOBIN 31.6 pg 25.7-32.2 (BEAKER) (test code = 751) MEAN CORPUSCULAR HEMOGLOBIN CONC 31.5 GM/DL 32.3-36.5 L (BEAKER) (test code = 752) RED CELL DISTRIBUTION WIDTH 14.0 % 11.6-14.4 (BEAKER) (test code = 412) PLATELET COUNT (BEAKER) (test 511 K/CU MM 150-450 H code = 756) MEAN PLATELET VOLUME (BEAKER) 10.1 fL 9.4-12.4 (test code = 754) NUCLEATED RED BLOOD CELLS 0 /100 WBC 0-0 (BEAKER) (test code = 413) NEUTROPHILS RELATIVE PERCENT 83 % (BEAKER) (test code = 429) LYMPHOCYTES RELATIVE PERCENT 9 % (BEAKER) (test code = 430) MONOCYTES RELATIVE PERCENT 5 % (BEAKER) (test code = 431) EOSINOPHILS RELATIVE PERCENT 2 % (BEAKER) (test code = 432) BASOPHILS RELATIVE PERCENT 0 % (BEAKER) (test code = 437) NEUTROPHILS ABSOLUTE COUNT 11.95 K/ L 1.78-5.38 H (BEAKER) (test code = 670) LYMPHOCYTES ABSOLUTE COUNT 1.24 K/ L 1.32-3.57 L (BEAKER) (test code = 414) MONOCYTES ABSOLUTE COUNT (BEAKER) 0.75 K/ L 0.30-0.82 (test code = 415) EOSINOPHILS ABSOLUTE COUNT 0.24 K/ L 0.04-0.54 (BEAKER) (test code = 416) BASOPHILS ABSOLUTE COUNT (BEAKER) 0.04 K/ L 0.01-0.08 (test code = 417) IMMATURE GRANULOCYTES-RELATIVE 1 % 0-1 PERCENT (BEAKER) (test code = 2801) POCT-GLUCOSE [id number] 00:13:00 Test Item Value Reference Range Interpretation Comments POC-GLUCOSE METER 115 mg/dL 70-110 H : Notified RN/MD: (SINDY) (test code = TESTED AT [facility] 6720 1532) [facility], [address]: Loader Magazine Grinder/Techni martin ID = [id number] for DO LUCY ARAYA POCT-GLUCOSE [id number] 16:31:00 Test Item Value Reference Range Interpretation Comments POC-GLUCOSE METER 137 mg/dL 70-110 H : Notified RN/MD: (SINDY) (test code = TESTED AT [facility] 67 1538) [facility], [address]: Loader Magazine Grinder/Techni martin ID = [id number] for TH OMAS, KIZZYHA POCT-GLUCOSE [id number] 12:12:00 Test Item Value Reference Range Interpretation Comments POC-GLUCOSE METER 119 mg/dL 70-110 H : Notified RN/MD: (SINDY) (test code = TESTED AT [facility] 6720 1538) [facility], [address]: Loader Magazine Grinder/Techni martin ID = [id number] for TH OMAS, COSHA SARS-COV2/RT-PCR ([facility])2020-03-07 06:57:00 Test Item Value Reference Range Interpretation Comments SARS-COV2/RT-PCR (test Negative Not Detected, Negative, code = 6702239) See external report for linked test SARS-COV-2 PERFORMING LAB [facility] (test code = 3439457) Negative result for this test determines that SARS-CoV-2 RNA was not present in the specimen above the Limit of Detection (LOD). However, Negative results do not preclude SARS-CoV-2 infection and should not be used as the sole basis for treatment or patient management decisions. Negative results mustbe combined with clinical observations, patient history, and epidemiological information. A false negative result may occur if a specimen is improperly collected, transported or handled. A false negative result should be considered if patient's recent exposures or clinical presentation indicate that COVID-19 (SARS-CoV-2) is likely and diagnostic tests for other causes of illness are negative. Re-testing should be considered in cases of suspected false negatives.The limit of detection for this assay is 100 copies/mL.This SARS CoV-2 test is a real-time RT-PCR test intended for the qualitative detection of nucleic acid from SARS-CoV-2 in a nasopharyngeal swab specimen collected from individuals suspected of COVID-19 by their healthcare provider.This test has not been Food and Drug [...] is revoked under Section 564(g) of the Act.Testing was performed using the Fuentes SARS-CoV-2 assay.Fact Sheet for Healthcare Providers:https://www.[employer].fuentes/luigi/ JV_STPI-FhA-1_HWI_Rxxk_Unodr_26-128908.pdfFact Sheet for Healthcare Patients:https://www.[employer] cony/luigi/VX_PEMV-LlX-0_Diyizxb_Mivj_Ggahv_VR_59-144100Z9.pdfPerforming Laboratory:[place] [address] [place] [address] POCT-GLUCOSE [id number] 06:09:00 Test Item Value Reference Range Interpretation Comments POC-GLUCOSE METER 128 mg/dL 70-110 H : TESTED A T [facility] 6720 (BEAKER) (test code = [facility], 1538) [address]: Loader Magazine Grinder/Techni martin ID = [id number] for JARON VINCENT CBC W/PLT COUNT & AUTO [id number] 05:49:00 Test Item Value Reference Range Interpretation Comments WHITE BLOOD CELL COUNT (BEAKER) 11.8 K/ L 3.5-10.5 H (test code = 775) RED BLOOD CELL COUNT (BEAKER) 4.16 M/ L 4.63-6.08 L (test code = 761) HEMOGLOBIN (BEAKER) (test code = 13.1 GM/DL 13.7-17.5 L 410) HEMATOCRIT (BEAKER) (test code = 42.1 % 40.1-51.0 411) MEAN CORPUSCULAR VOLUME (BEAKER) 101.2 fL 79.0-92.2 H (test code = 753) MEAN CORPUSCULAR HEMOGLOBIN 31.5 pg 25.7-32.2 (BEAKER) (test code = 751) MEAN CORPUSCULAR HEMOGLOBIN CONC 31.1 GM/DL 32.3-36.5 L (BEAKER) (test code = 752) RED CELL DISTRIBUTION WIDTH 14.2 % 11.6-14.4 (BEAKER) (test code = 412) PLATELET COUNT (BEAKER) (test 464 K/CU MM 150-450 H code = 756) MEAN PLATELET VOLUME (BEAKER) 10.1 fL 9.4-12.4 (test code = 754) NUCLEATED RED BLOOD CELLS 0 /100 WBC 0-0 (BEAKER) (test code = 413) NEUTROPHILS RELATIVE PERCENT 80 % (BEAKER) (test code = 429) LYMPHOCYTES RELATIVE PERCENT 9 % (BEAKER) (test code = 430) MONOCYTES RELATIVE PERCENT 7 % (BEAKER) (test code = 431) EOSINOPHILS RELATIVE PERCENT 3 % (BEAKER) (test code = 432) BASOPHILS RELATIVE PERCENT 1 % (BEAKER) (test code = 437) NEUTROPHILS ABSOLUTE COUNT 9.47 K/ L 1.78-5.38 H (BEAKER) (test code = 670) LYMPHOCYTES ABSOLUTE COUNT 1.05 K/ L 1.32-3.57 L (BEAKER) (test code = 414) MONOCYTES ABSOLUTE COUNT (BEAKER) 0.77 K/ L 0.30-0.82 (test code = 415) EOSINOPHILS ABSOLUTE COUNT 0.30 K/ L 0.04-0.54 (BEAKER) (test code = 416) BASOPHILS ABSOLUTE COUNT (BEAKER) 0.06 K/ L 0.01-0.08 (test code = 417) IMMATURE GRANULOCYTES-RELATIVE 1 % 0-1 PERCENT (BEAKER) (test code = 2801) [id number] 05:44:00 Test Item Value Reference Range Interpretation Comments PHOSPHORUS (BEAKER) (test code = 4.4 mg/dL 2.3-4.7 604) Loader Magazine Grinder ID - EDASIPOCT-GLUCOSE [id number] 23:52:00 Test Item Value Reference Range Interpretation Comments POC-GLUCOSE METER 138 mg/dL 70-110 H : TESTED A T [facility] 6720 (BEAKER) (test code = [place], 1538) [address]: Loader Magazine Grinder/Techni martin ID = [id number] for JARON VINCENT POCT-GLUCOSE [id number] 17:51:00 Test Item Value Reference Range Interpretation Comments POC-GLUCOSE METER 144 mg/dL 70-110 H : TESTED A T [facility] 6720 (BEAKER) (test code = [place], 1538) [address]: Loader Magazine Grinder/Techni martin ID = [id number] for Damaris DAVIS POCT-GLUCOSE [id number] 13:20:00 Test Item Value Reference Range Interpretation Comments POC-GLUCOSE METER 123 mg/dL 70-110 H : TESTED A T [facility] 6720 (BEAKER) (test code = [place], 1538) [address]: Loader Magazine Grinder/Techni martin ID = [id number] for MAXIM JORDAN CBC W/PLT COUNT & AUTO [id number] 06:34:00 Test Item Value Reference Range Interpretation Comments WHITE BLOOD CELL COUNT (BEAKER) 8.8 K/ L 3.5-10.5 (test code = 775) RED BLOOD CELL COUNT (BEAKER) 4.08 M/ L 4.63-6.08 L (test code = 761) HEMOGLOBIN (BEAKER) (test code = 13.3 GM/DL 13.7-17.5 L 410) HEMATOCRIT (BEAKER) (test code = 40.8 % 40.1-51.0 411) MEAN CORPUSCULAR VOLUME (BEAKER) 100.0 fL 79.0-92.2 H (test code = 753) MEAN CORPUSCULAR HEMOGLOBIN 32.6 pg 25.7-32.2 H (BEAKER) (test code = 751) MEAN CORPUSCULAR HEMOGLOBIN CONC 32.6 GM/DL 32.3-36.5 (BEAKER) (test code = 752) RED CELL DISTRIBUTION WIDTH 14.1 % 11.6-14.4 (BEAKER) (test code = 412) PLATELET COUNT (BEAKER) (test 407 K/CU MM 150-450 code = 756) MEAN PLATELET VOLUME (BEAKER) 10.0 fL 9.4-12.4 (test code = 754) NEUTROPHILS RELATIVE PERCENT 72 % (BEAKER) (test code = 429) LYMPHOCYTES RELATIVE PERCENT 14 % (BEAKER) (test code = 430) MONOCYTES RELATIVE PERCENT 8 % (BEAKER) (test code = 431) EOSINOPHILS RELATIVE PERCENT 3 % (BEAKER) (test code = 432) BASOPHILS RELATIVE PERCENT 1 % (BEAKER) (test code = 437) NEUTROPHILS ABSOLUTE COUNT 6.29 K/ L 1.78-5.38 H (BEAKER) (test code = 670) LYMPHOCYTES ABSOLUTE COUNT 1.23 K/ L 1.32-3.57 L (BEAKER) (test code = 414) MONOCYTES ABSOLUTE COUNT (BEAKER) 0.73 K/ L 0.30-0.82 (test code = 415) EOSINOPHILS ABSOLUTE COUNT 0.30 K/ L 0.04-0.54 (BEAKER) (test code = 416) BASOPHILS ABSOLUTE COUNT (BEAKER) 0.06 K/ L 0.01-0.08 (test code = 417) IMMATURE GRANULOCYTES-RELATIVE 2 % 0-1 H PERCENT (BEAKER) (test code = 2801) [id number] 05:36:00 Test Item Value Reference Range Interpretation Comments PHOSPHORUS (BEAKER) (test code = 4.3 mg/dL 2.3-4.7 604) Loader Magazine Grinder ID - EDASIPOCT-GLUCOSE [id number] 05:24:00 Test Item Value Reference Range Interpretation Comments POC-GLUCOSE METER 118 mg/dL 70-110 H : TESTED A T [facility] 6720 (BEAKER) (test code = [facility], 153) [address]: Loader Magazine Grinder/Techni martin ID = [id number] for ALEXANDRIA VINCENTA POCT-GLUCOSE [id number] 00:38:00 Test Item Value Reference Range Interpretation Comments POC-GLUCOSE METER 109 mg/dL 70-110 : TESTED A T [facility] 6720 (BEAKER) (test code = [facility], 153) [address]: Loader Magazine Grinder/Techni martin ID = [id number] for ANGIE VINCENTTTA POCT-GLUCOSE [id number] 18:11:00 Test Item Value Reference Range Interpretation Comments POC-GLUCOSE METER 120 mg/dL 70-110 H : TESTED A T [facility] 6720 (BEAKER) (test code = [facility], 153) [address]: Loader Magazine Grinder/Techni martin ID = [id number] for QUIN GREEN POCT-GLUCOSE [id number] 16:33:00 Test Item Value Reference Range Interpretation Comments POC-GLUCOSE METER 124 mg/dL 70-110 H : TESTED A T [facility] 6720 (BEAKER) (test code = [place], 1538) [address]: Loader Magazine Grinder/Techni martin ID = [id number] for QUIN GREEN POCT-GLUCOSE [id number] 11:29:00 Test Item Value Reference Range Interpretation Comments POC-GLUCOSE METER 120 mg/dL 70-110 H : TESTED A T [facility] 6720 (BEAKER) (test code = [place], 1538) [address]: Loader Magazine Grinder/Techni martin ID = [id number] for ESPINOZA DARLINE [id number] 05:44:00 Test Item Value Reference Range Interpretation Comments PHOSPHORUS (BEAKER) (test code = 3.8 mg/dL 2.3-4.7 604) Loader Magazine Grinder ID - PIAYA LCBC W/PLT COUNT & AUTO [id number] 05:10:00 Test Item Value Reference Range Interpretation Comments WHITE BLOOD CELL COUNT (BEAKER) 10.2 K/ L 3.5-10.5 (test code = 775) RED BLOOD CELL COUNT (BEAKER) 3.66 M/ L 4.63-6.08 L (test code = 761) HEMOGLOBIN (BEAKER) (test code = 11.6 GM/DL 13.7-17.5 L 410) HEMATOCRIT (BEAKER) (test code = 36.7 % 40.1-51.0 L 411) MEAN CORPUSCULAR VOLUME (BEAKER) 100.3 fL 79.0-92.2 H (test code = 753) MEAN CORPUSCULAR HEMOGLOBIN 31.7 pg 25.7-32.2 (BEAKER) (test code = 751) MEAN CORPUSCULAR HEMOGLOBIN CONC 31.6 GM/DL 32.3-36.5 L (BEAKER) (test code = 752) RED CELL DISTRIBUTION WIDTH 14.3 % 11.6-14.4 (BEAKER) (test code = 412) PLATELET COUNT (BEAKER) (test 387 K/CU MM 150-450 code = 756) MEAN PLATELET VOLUME (BEAKER) 10.1 fL 9.4-12.4 (test code = 754) NUCLEATED RED BLOOD CELLS 0 /100 WBC 0-0 (BEAKER) (test code = 413) NEUTROPHILS RELATIVE PERCENT 73 % (BEAKER) (test code = 429) LYMPHOCYTES RELATIVE PERCENT 13 % (BEAKER) (test code = 430) MONOCYTES RELATIVE PERCENT 8 % (BEAKER) (test code = 431) EOSINOPHILS RELATIVE PERCENT 3 % (BEAKER) (test code = 432) BASOPHILS RELATIVE PERCENT 0 % (BEAKER) (test code = 437) NEUTROPHILS ABSOLUTE COUNT 7.48 K/ L 1.78-5.38 H (BEAKER) (test code = 670) LYMPHOCYTES ABSOLUTE COUNT 1.33 K/ L 1.32-3.57 (BEAKER) (test code = 414) MONOCYTES ABSOLUTE COUNT (BEAKER) 0.82 K/ L 0.30-0.82 (test code = 415) EOSINOPHILS ABSOLUTE COUNT 0.33 K/ L 0.04-0.54 (BEAKER) (test code = 416) BASOPHILS ABSOLUTE COUNT (BEAKER) 0.04 K/ L 0.01-0.08 (test code = 417) IMMATURE GRANULOCYTES-RELATIVE 2 % 0-1 H PERCENT (BEAKER) (test code = 2801) POCT-GLUCOSE [id number] 23:47:00 Test Item Value Reference Range Interpretation Comments POC-GLUCOSE METER 110 mg/dL 70-110 : TESTED A T [facility] 6720 (BEAKER) (test code = [facility], 153) [id number]: [employer] Grinder/Techni martin ID = [id number] for DE NNIS, DARLINE POCT-GLUCOSE [id number] 17:37:00 Test Item Value Reference Range Interpretation Comments POC-GLUCOSE METER 124 mg/dL 70-110 H : TESTED A T [facility] (BEAKER) (test code = [facility], 153) [id number]: Load[employer] Grinder/Techni martin ID = [id number] for MA RTINEZ, QUIN POCT-GLUCOSE [id number] 12:53:00 Test Item Value Reference Range Interpretation Comments POC-GLUCOSE METER 126 mg/dL 70-110 H : TESTED A T [facility] 67[address] (BEAKER) (test code = [facility], 153) 61955: Load[employer] Grinder/Techni martin ID = [id number] for MA RTINEZ, QUIN [id number] 06:14:00 Test Item Value Reference Range Interpretation Comments Magnesium (test code = 2.0 mg/dL 1.6-2.6 70690-0) JUDI (test code = JUDI) [employer] ID Joon JEFFERSON L Lab Interpretation (test Normal code = 40782-7) [facility] [id number] 06:14:00 Test Item Value Reference Range Interpretation Comments SODIUM (BEAKER) 137 meq/L 136-145 (test code = 381) POTASSIUM (BEAKER) 4.6 meq/L 3.5-5.1 (test code = 379) CHLORIDE (BEAKER) 101 meq/L 98-107 (test code = 382) CO2 (BEAKER) (test 27 meq/L 22-29 code = 355) BLOOD UREA NITROGEN 23 mg/dL 7-21 H (BEAKER) (test code = 354) CREATININE (BEAKER) 0.69 mg/dL 0.57-1.25 (test code = 358) GLUCOSE RANDOM 120 mg/dL 70-105 H (BEAKER) (test code = 652) CALCIUM (BEAKER) 8.8 mg/dL 8.4-10.2 (test code = 697) EGFR (BEAKER) (test 110 mL/min/1.73 ESTIM ATED GFR IS code = 1092) sq m NOT ACCURATE CREATININE CLEARANCE IN PREDICTING GLOMERULAR FILTRATION RATE . ESTIMATED GFR I S NOT APPLICABLE FOR DIALYSIS PATIEN TS. [employer]inder ID - RONNY [id number] 06:14:00 Test Item Value Reference Range Interpretation Comments MAGNESIUM (BEAKER) (test code = 2.0 mg/dL 1.6-2.6 627) [employer] ID - RONNY [id number] 06:14:00 Test Item Value Reference Range Interpretation Comments PHOSPHORUS (BEAKER) (test code = 4.3 mg/dL 2.3-4.7 604) [employer] ID - RONNY LCBC W/PLT COUNT & AUTO [id number] 05:59:00 Test Item Value Reference Range Interpretation Comments WHITE BLOOD CELL COUNT (BEAKER) 11.2 K/ L 3.5-10.5 H (test code = 775) RED BLOOD CELL COUNT (BEAKER) 3.64 M/ L 4.63-6.08 L (test code = 761) HEMOGLOBIN (BEAKER) (test code = 11.4 GM/DL 13.7-17.5 L 410) HEMATOCRIT (BEAKER) (test code = 35.8 % 40.1-51.0 L 411) MEAN CORPUSCULAR VOLUME (BEAKER) 98.4 fL 79.0-92.2 H (test code = 753) MEAN CORPUSCULAR HEMOGLOBIN 31.3 pg 25.7-32.2 (BEAKER) (test code = 751) MEAN CORPUSCULAR HEMOGLOBIN CONC 31.8 GM/DL 32.3-36.5 L (BEAKER) (test code = 752) RED CELL DISTRIBUTION WIDTH 14.2 % 11.6-14.4 (BEAKER) (test code = 412) PLATELET COUNT (BEAKER) (test 319 K/CU MM 150-450 code = 756) MEAN PLATELET VOLUME (BEAKER) 10.4 fL 9.4-12.4 (test code = 754) NUCLEATED RED BLOOD CELLS 0 /100 WBC 0-0 (BEAKER) (test code = 413) NEUTROPHILS RELATIVE PERCENT 77 % (BEAKER) (test code = 429) LYMPHOCYTES RELATIVE PERCENT 12 % (BEAKER) (test code = 430) MONOCYTES RELATIVE PERCENT 6 % (BEAKER) (test code = 431) EOSINOPHILS RELATIVE PERCENT 3 % (BEAKER) (test code = 432) BASOPHILS RELATIVE PERCENT 1 % (BEAKER) (test code = 437) NEUTROPHILS ABSOLUTE COUNT 8.65 K/ L 1.78-5.38 H (BEAKER) (test code = 670) LYMPHOCYTES ABSOLUTE COUNT 1.29 K/ L 1.32-3.57 L (BEAKER) (test code = 414) MONOCYTES ABSOLUTE COUNT (BEAKER) 0.68 K/ L 0.30-0.82 (test code = 415) EOSINOPHILS ABSOLUTE COUNT 0.35 K/ L 0.04-0.54 (BEAKER) (test code = 416) BASOPHILS ABSOLUTE COUNT (BEAKER) 0.06 K/ L 0.01-0.08 (test code = 417) IMMATURE GRANULOCYTES-RELATIVE 2 % 0-1 H PERCENT (BEAKER) (test code = 2801) POCT-GLUCOSE [id number] 05:54:00 Test Item Value Reference Range Interpretation Comments POC-GLUCOSE METER 110 mg/dL 70-110 : TESTED A Paresh [facility] 67[address] (BEAKER) (test code = [place], 1538) [address]: Loader Magazine Grinder/Techni martin ID = [id number] for KATHY LOWE, NADINA POCT-GLUCOSE [id number] 23:20:00 Test Item Value Reference Range Interpretation Comments POC-GLUCOSE METER 130 mg/dL 70-110 H : TESTED A T [facility] 6720 (BEAKER) (test code = [facility], 1538) 8[address]: Loader Magazine Grinder/Techni martin ID = [id number] for KATHY LOWE, NADINA BLOOD [id number] 20:00:00 Test Item Value Reference Range Interpretation Comments CULTURE (BEAKER) (test No growth in 5 days code = 1095) POCT-GLUCOSE [id number] 18:29:00 Test Item Value Reference Range Interpretation Comments POC-GLUCOSE METER 129 mg/dL 70-110 H : TESTED A T [facility] 6720 (BEAKER) (test code = [facility], 1538) 62108: Loader Magazine Grinder/Techni martin ID = [id number] for MOSES MCLAUGHLIN QUIN POCT-GLUCOSE [id number] 12:23:00 Test Item Value Reference Range Interpretation Comments POC-GLUCOSE METER 139 mg/dL 70-110 H : TESTED A T [facility] 6720 (BEAKER) (test code = [facility], 1538) [address]: Loader Magazine Grinder/Techni martin ID = [id number] for MOSES MCLAUGHLIN, QUIN BLOOD [id number] 12:01:00 Test Item Value Reference Range Interpretation Comments CULTURE (BEAKER) (test No growth in 5 days code = 1095) [id number] 07:27:00 Test Item Value Reference Range Interpretation Comments MAGNESIUM (BEAKER) 2.0 mg/dL 1.6-2.6 Specimen slightly (test code = 627) hemolyzed Loader Magazine Grinder ID - [id number] 07:27:00 Test Item Value Reference Range Interpretation Comments PHOSPHORUS (BEAKER) 4.0 mg/dL 2.3-4.7 Specimen slightly (test code = 604) hemolyzed Loader [employer] Grinder ID - EDASIBASIC METABOLIC [id number] 07:27:00 Test Item Value Reference Range Interpretation Comments SODIUM (BEAKER) 138 meq/L 136-145 (test code = 381) POTASSIUM (BEAKER) 4.9 meq/L 3.5-5.1 Specimen slightly (test code = 379) hemolyzed CHLORIDE (BEAKER) 102 meq/L 98-107 (test code = 382) CO2 (BEAKER) (test 30 meq/L 22-29 H code = 355) BLOOD UREA NITROGEN 23 mg/dL 7-21 H (BEAKER) (test code = 354) CREATININE (BEAKER) 0.68 mg/dL 0.57-1.25 Specimen slightly (test code = 358) hemolyzed GLUCOSE RANDOM 127 mg/dL 70-105 H (BEAKER) (test code = 652) CALCIUM (BEAKER) 8.8 mg/dL 8.4-10.2 (test code = 697) EGFR (BEAKER) (test 111 mL/min/1.73 ESTIM ATED GFR IS code = 1092) sq m NOT ACCURATE CREATININE CLEARANCE IN PREDICTING GLOMERULAR FILTRATION RATE . ESTIMATED GFR I S NOT APPLICABLE FOR DIALYSIS PATIEN TS. Loader Magazine Grinder ID - EDASICBC W/PLT COUNT & AUTO [id number] 07:00:00 Test Item Value Reference Range Interpretation Comments WHITE BLOOD CELL COUNT (BEAKER) 12.2 K/ L 3.5-10.5 H (test code = 775) RED BLOOD CELL COUNT (BEAKER) 3.46 M/ L 4.63-6.08 L (test code = 761) HEMOGLOBIN (BEAKER) (test code = 11.0 GM/DL 13.7-17.5 L 410) HEMATOCRIT (BEAKER) (test code = 33.8 % 40.1-51.0 L 411) MEAN CORPUSCULAR VOLUME (BEAKER) 97.7 fL 79.0-92.2 H (test code = 753) MEAN CORPUSCULAR HEMOGLOBIN 31.8 pg 25.7-32.2 (BEAKER) (test code = 751) MEAN CORPUSCULAR HEMOGLOBIN CONC 32.5 GM/DL 32.3-36.5 (BEAKER) (test code = 752) RED CELL DISTRIBUTION WIDTH 14.0 % 11.6-14.4 (BEAKER) (test code = 412) PLATELET COUNT (BEAKER) (test 278 K/CU MM 150-450 code = 756) MEAN PLATELET VOLUME (BEAKER) 10.3 fL 9.4-12.4 (test code = 754) NUCLEATED RED BLOOD CELLS 0 /100 WBC 0-0 (BEAKER) (test code = 413) NEUTROPHILS RELATIVE PERCENT 79 % (BEAKER) (test code = 429) LYMPHOCYTES RELATIVE PERCENT 10 % (BEAKER) (test code = 430) MONOCYTES RELATIVE PERCENT 5 % (BEAKER) (test code = 431) EOSINOPHILS RELATIVE PERCENT 3 % (BEAKER) (test code = 432) BASOPHILS RELATIVE PERCENT 1 % (BEAKER) (test code = 437) NEUTROPHILS ABSOLUTE COUNT 9.64 K/ L 1.78-5.38 H (BEAKER) (test code = 670) LYMPHOCYTES ABSOLUTE COUNT 1.23 K/ L 1.32-3.57 L (BEAKER) (test code = 414) MONOCYTES ABSOLUTE COUNT (BEAKER) 0.66 K/ L 0.30-0.82 (test code = 415) EOSINOPHILS ABSOLUTE COUNT 0.39 K/ L 0.04-0.54 (BEAKER) (test code = 416) BASOPHILS ABSOLUTE COUNT (BEAKER) 0.06 K/ L 0.01-0.08 (test code = 417) IMMATURE GRANULOCYTES-RELATIVE 2 % 0-1 H PERCENT (BEAKER) (test code = 2801) POCT-GLUCOSE [id number] 05:46:00 Test Item Value Reference Range Interpretation Comments POC-GLUCOSE METER 134 mg/dL 70-110 H : TESTED A T [facility] 6720 (BEAKER) (test code = [facility], 153) 232[address]: Loader Magazine Grinder/Techni martin ID = [id number] for LO PEZ, NADINA POCT-GLUCOSE [id number] 00:00:00 Test Item Value Reference Range Interpretation Comments POC-GLUCOSE METER 120 mg/dL 70-110 H : TESTED A T [facility] 6720 (BEAKER) (test code = [facility], 153) 88367: Loader Magazine Grinder/Techni martin ID = [id number] for LO PEZ, NADINA POCT-GLUCOSE [id number] 11:53:00 Test Item Value Reference Range Interpretation Comments POC-GLUCOSE METER 129 mg/dL 70-110 H : TESTED A T [facility] 6720 (BEAKER) (test code = [facility], 153) 48764: Loader Magazine Grinder/Techni martin ID = [id number] for MA RIN, CARMELINA SPUTUM CULTURE + GRAM [id number] 10:36:00 Test Item Value Reference Range Interpretation Comments CULTURE (BEAKER) PSEUDOMONAS A 1+ Pseudomo eduardo (test code = 1095) AERUGINOSA aeruginos a Amikacin (test code Susceptible 0-16 S = 1) , Resistant <0 or >16 Aztreonam (test Susceptible 0-8 , S code = 32) Resistant <0 or >8 Cefepime (test code Susceptible 0-8 , S = 51) Resistant <0 or >8 Ceftazidime (test Susceptible 0-8 , S code = 27) Resistant <0 or >8 Ciprofloxacin (test Susceptible 0-0.5 S code = 7) , Resistant <0 or >.5 Gentamicin (test Susceptible 0-4 , S code = 18) Resistant <0 or >4 Imipenem (test code Susceptible 0-2 , S = 19) Resistant <0 or >2 Levofloxacin (test Susceptible 0-1 , S code = 22) Resistant <0 or >1 Meropenem (test Susceptible 0-2 , S code = 34) Resistant <0 or >2 Piperacillin (test Susceptible 0-16 S code = 24) , Resistant <0 or >16 Piperacillin + Susceptible 0-16 S Tazobactam (test , Resistant <0 or code = 29) >16 Tobramycin (test Susceptible 0-4 , S code = 25) Resistant <0 or >4 GRAM STAIN RESULT 2+ WBCs (BEAKER) (test code = 1123) GRAM STAIN RESULT 0-5 epithelial (BEAKER) (test code cells = 404718) GRAM STAIN RESULT 3+ gram negative (BEAKER) (test code rods = 661092) 4+ Normal respiratory ricardo presentBASIC METABOLIC [id number] 04:42:00 Test Item Value Reference Range Interpretation Comments SODIUM (BEAKER) 139 meq/L 136-145 (test code = 381) POTASSIUM (BEAKER) 4.2 meq/L 3.5-5.1 (test code = 379) CHLORIDE (BEAKER) 102 meq/L 98-107 (test code = 382) CO2 (BEAKER) (test 32 meq/L 22-29 H code = 355) BLOOD UREA NITROGEN 19 mg/dL 7-21 (BEAKER) (test code = 354) CREATININE (BEAKER) 0.67 mg/dL 0.57-1.25 (test code = 358) GLUCOSE RANDOM 127 mg/dL 70-105 H (BEAKER) (test code = 652) CALCIUM (BEAKER) 8.4 mg/dL 8.4-10.2 (test code = 697) EGFR (BEAKER) (test 113 mL/min/1.73 ESTIM ATED GFR IS code = 1092) sq m NOT ACCURATE CREATININE CLEARANCE IN PREDICTING GLOMERULAR FILTRATION RATE . ESTIMATED GFR I S NOT APPLICABLE FOR DIALYSIS PATIEN TS. Loader Magazine Grinder ID - [id number] 04:42:00 Test Item Value Reference Range Interpretation Comments MAGNESIUM (BEAKER) (test code = 1.9 mg/dL 1.6-2.6 627) Loader Magazine Grinder ID - [id number] 04:42:00 Test Item Value Reference Range Interpretation Comments PHOSPHORUS (BEAKER) (test code = 4.0 mg/dL 2.3-4.7 604) Loader Magazine Grinder ID - EDASICBC W/PLT COUNT & AUTO [id number] 04:22:00 Test Item Value Reference Range Interpretation Comments WHITE BLOOD CELL COUNT (BEAKER) 12.0 K/ L 3.5-10.5 H (test code = 775) RED BLOOD CELL COUNT (BEAKER) 3.26 M/ L 4.63-6.08 L (test code = 761) HEMOGLOBIN (BEAKER) (test code = 10.3 GM/DL 13.7-17.5 L 410) HEMATOCRIT (BEAKER) (test code = 32.7 % 40.1-51.0 L 411) MEAN CORPUSCULAR VOLUME (BEAKER) 100.3 fL 79.0-92.2 H (test code = 753) MEAN CORPUSCULAR HEMOGLOBIN 31.6 pg 25.7-32.2 (BEAKER) (test code = 751) MEAN CORPUSCULAR HEMOGLOBIN CONC 31.5 GM/DL 32.3-36.5 L (BEAKER) (test code = 752) RED CELL DISTRIBUTION WIDTH 13.6 % 11.6-14.4 (BEAKER) (test code = 412) PLATELET COUNT (BEAKER) (test 226 K/CU MM 150-450 code = 756) MEAN PLATELET VOLUME (BEAKER) 10.6 fL 9.4-12.4 (test code = 754) NUCLEATED RED BLOOD CELLS 0 /100 WBC 0-0 (BEAKER) (test code = 413) NEUTROPHILS RELATIVE PERCENT 80 % (BEAKER) (test code = 429) LYMPHOCYTES RELATIVE PERCENT 9 % (BEAKER) (test code = 430) MONOCYTES RELATIVE PERCENT 5 % (BEAKER) (test code = 431) EOSINOPHILS RELATIVE PERCENT 4 % (BEAKER) (test code = 432) BASOPHILS RELATIVE PERCENT 0 % (BEAKER) (test code = 437) NEUTROPHILS ABSOLUTE COUNT 9.62 K/ L 1.78-5.38 H (BEAKER) (test code = 670) LYMPHOCYTES ABSOLUTE COUNT 1.04 K/ L 1.32-3.57 L (BEAKER) (test code = 414) MONOCYTES ABSOLUTE COUNT (BEAKER) 0.57 K/ L 0.30-0.82 (test code = 415) EOSINOPHILS ABSOLUTE COUNT 0.47 K/ L 0.04-0.54 (BEAKER) (test code = 416) BASOPHILS ABSOLUTE COUNT (BEAKER) 0.05 K/ L 0.01-0.08 (test code = 417) IMMATURE GRANULOCYTES-RELATIVE 2 % 0-1 H PERCENT (BEAKER) (test code = 2801) POCT-GLUCOSE [id number] 00:57:00 Test Item Value Reference Range Interpretation Comments POC-GLUCOSE METER 115 mg/dL 70-110 H : Verify w / Lab Draw: (BEAKER) (test code Notified RN/MD: TESTED = 1538) AT [facility] [address] [facility], [address]: Loader Magazine Grinder/Techni martin ID = [id number] for SUGU , SHEENAMOL POCT-GLUCOSE [id number] 17:53:00 Test Item Value Reference Range Interpretation Comments POC-GLUCOSE METER 125 mg/dL 70-110 H : TESTED A T [facility] 6720 (BEAKER) (test code [facility], = 1538) 25514: Loader Magazine Grinder/Techni martin ID = [id number] for CAMERON (V)JERSEYJULIA RAD, CHEST, 1 VIEW, NON [id number] 12:10:00Reason for exam:->Re-eval BLLL aspiration PNAShould this be performed at the bedside?->Yes [facility] 1935 Sex: MFINAL REPORT CLINICAL HISTORY: Re-eval BLLL aspiration PNA TECHNIQUE: 1 view of the chest. COMPARISON: 02/27/2020 IMPRESSION: The supporting lines and tubes are similar appearing. Bilateral lower lung airspace opacities have decreased. There are no pleural effusions. There is no cardiomegaly. Signed: Jacob Wright Verified Date/Time: 03/01/2020 12:10:51 Reading Location: [facility] Radiology Reading Room POCT-GLUCOSE [id number] 11:57:00 Test Item Value Reference Range Interpretation Comments POC-GLUCOSE METER 119 mg/dL 70-110 H : TESTED A T [facility] 6720 (BEAKER) (test code = [place] [facility], 1538) 8[address]: Loader Magazine Grinder/Techni martin ID = [id number] for GR ANTMINDYARA POCT-GLUCOSE [id number] 06:14:00 Test Item Value Reference Range Interpretation Comments POC-GLUCOSE METER 129 mg/dL 70-110 H : TESTED A T [facility] 6720 (BEAKER) (test code [facility], = 1538) 42518: Loader Magazine Grinder/Techni martin ID = [id number] for SUGU , ISISENAMOL BASIC METABOLIC [id number] 05:52:00 Test Item Value Reference Range Interpretation Comments SODIUM (BEAKER) 136 meq/L 136-145 (test code = 381) POTASSIUM (BEAKER) 4.3 meq/L 3.5-5.1 (test code = 379) CHLORIDE (BEAKER) 102 meq/L 98-107 (test code = 382) CO2 (BEAKER) (test 28 meq/L 22-29 code = 355) BLOOD UREA NITROGEN 23 mg/dL 7-21 H (BEAKER) (test code = 354) CREATININE (BEAKER) 0.66 mg/dL 0.57-1.25 (test code = 358) GLUCOSE RANDOM 151 mg/dL 70-105 H (BEAKER) (test code = 652) CALCIUM (BEAKER) 8.2 mg/dL 8.4-10.2 L (test code = 697) EGFR (BEAKER) (test 115 mL/min/1.73 ESTIM ATED GFR IS code = 1092) sq m NOT ACCURATE CREATININE CLEARANCE IN PREDICTING GLOMERULAR FILTRATION RATE . ESTIMATED GFR I S NOT APPLICABLE FOR DIALYSIS PATIEN TS. Loader Magazine Grinder ID - SUKHDEV [id number] 05:52:00 Test Item Value Reference Range Interpretation Comments MAGNESIUM (BEAKER) (test code = 1.7 mg/dL 1.6-2.6 627) Loader Magazine Grinder ID - SUKHDEV [id number] 05:52:00 Test Item Value Reference Range Interpretation Comments PHOSPHORUS (BEAKER) (test code = 3.3 mg/dL 2.3-4.7 604) Loader Magazine Grinder ID - SUKHDEV MBlood gas, [id number] 05:32:00 Test Item Value Reference Range Interpretation Comments pH, Arterial (test code = 2744-1) 7.46 7.35-7.45 H pCO2, Arterial (test code = 42 35- 45 mm Hg 2018-) pO2, Arterial (test code = 2703-7) 189 80- 90 mm Hg H O2 Sat, Arterial (test code = 99.4 % 96-97 H 8-6) HCO3, Arterial (test code = 29 mmol/L 21-29 1959-4) Base Excess, Arterial (test code = 4.4 mmol/L -2-3 H 1925-7) Patient Temperature (test code = 36.7 8310-5) FIO2 (test code = 1819) 40 Lab Interpretation (test code = Abnormal 56310-9) [facility] [id number] 05:32:00 Test Item Value Reference Range Interpretation Comments PH ARTERIAL (BEAKER) (test code = 7.46 7.35-7.45 H 383) PCO2 ARTERIAL (BEAKER) (test code 42 mm Hg 35-45 = 384) PO2 ARTERIAL (BEAKER) (test code = 189 mm Hg 80-90 H 385) O2 SATURATION ARTERIAL (BEAKER) 99.4 % 96.0-97.0 H (test code = 386) HCO3 ARTERIAL (BEAKER) (test code 29 mmol/L 21-29 = 388) BASE EXCESS ARTERIAL (BEAKER) 4.4 mmol/L -2.0-3.0 H (test code = 387) PATIENT TEMPERATURE (BEAKER) (test 36.7 code = 1818) FIO2 (BEAKER) (test code = 1819) 40.0 CBC W/PLT COUNT & AUTO [id number] 05:30:00 Test Item Value Reference Range Interpretation Comments WHITE BLOOD CELL COUNT (BEAKER) 10.0 K/ L 3.5-10.5 (test code = 775) RED BLOOD CELL COUNT (BEAKER) 2.88 M/ L 4.63-6.08 L (test code = 761) HEMOGLOBIN (BEAKER) (test code = 9.1 GM/DL 13.7-17.5 L 410) HEMATOCRIT (BEAKER) (test code = 28.3 % 40.1-51.0 L 411) MEAN CORPUSCULAR VOLUME (BEAKER) 98.3 fL 79.0-92.2 H (test code = 753) MEAN CORPUSCULAR HEMOGLOBIN 31.6 pg 25.7-32.2 (BEAKER) (test code = 751) MEAN CORPUSCULAR HEMOGLOBIN CONC 32.2 GM/DL 32.3-36.5 L (BEAKER) (test code = 752) RED CELL DISTRIBUTION WIDTH 13.9 % 11.6-14.4 (BEAKER) (test code = 412) PLATELET COUNT (BEAKER) (test 204 K/CU MM 150-450 code = 756) MEAN PLATELET VOLUME (BEAKER) 10.5 fL 9.4-12.4 (test code = 754) NUCLEATED RED BLOOD CELLS 0 /100 WBC 0-0 (BEAKER) (test code = 413) NEUTROPHILS RELATIVE PERCENT 80 % (BEAKER) (test code = 429) LYMPHOCYTES RELATIVE PERCENT 10 % (BEAKER) (test code = 430) MONOCYTES RELATIVE PERCENT 4 % (BEAKER) (test code = 431) EOSINOPHILS RELATIVE PERCENT 5 % (BEAKER) (test code = 432) BASOPHILS RELATIVE PERCENT 0 % (BEAKER) (test code = 437) NEUTROPHILS ABSOLUTE COUNT 7.91 K/ L 1.78-5.38 H (BEAKER) (test code = 670) LYMPHOCYTES ABSOLUTE COUNT 0.98 K/ L 1.32-3.57 L (BEAKER) (test code = 414) MONOCYTES ABSOLUTE COUNT (BEAKER) 0.44 K/ L 0.30-0.82 (test code = 415) EOSINOPHILS ABSOLUTE COUNT 0.54 K/ L 0.04-0.54 (BEAKER) (test code = 416) BASOPHILS ABSOLUTE COUNT (BEAKER) 0.03 K/ L 0.01-0.08 (test code = 417) IMMATURE GRANULOCYTES-RELATIVE 1 % 0-1 PERCENT (BEAKER) (test code = 2801) POCT-GLUCOSE [id number] 23:47:00 Test Item Value Reference Range Interpretation Comments POC-GLUCOSE METER 129 mg/dL 70-110 H : TESTED A T [facility] 6720 (BEAKER) (test code [facility], = 1538) [address]: Loader Magazine Grinder/Techni martin ID = [id number] for SUGU , SHEENAMOL BASIC METABOLIC [id number] 17:59:00 Test Item Value Reference Range Interpretation Comments SODIUM (BEAKER) 137 meq/L 136-145 (test code = 381) POTASSIUM (BEAKER) 5.0 meq/L 3.5-5.1 (test code = 379) CHLORIDE (BEAKER) 104 meq/L 98-107 (test code = 382) CO2 (BEAKER) (test 27 meq/L 22-29 code = 355) BLOOD UREA NITROGEN 24 mg/dL 7-21 H (BEAKER) (test code = 354) CREATININE (BEAKER) 0.72 mg/dL 0.57-1.25 (test code = 358) GLUCOSE RANDOM 146 mg/dL 70-105 H (BEAKER) (test code = 652) CALCIUM (BEAKER) 8.2 mg/dL 8.4-10.2 L (test code = 697) EGFR (BEAKER) (test 104 mL/min/1.73 ESTIM ATED GFR IS code = 1092) sq m NOT ACCURATE CREATININE CLEARANCE IN PREDICTING GLOMERULAR FILTRATION RATE . ESTIMATED GFR I S NOT APPLICABLE FOR DIALYSIS PATIEN TS. Loader Magazine Grinder ID - [id number] 17:59:00 Test Item Value Reference Range Interpretation Comments MAGNESIUM (BEAKER) (test code = 1.8 mg/dL 1.6-2.6 627) Loader Magazine Grinder ID - [id number] 17:59:00 Test Item Value Reference Range Interpretation Comments PHOSPHORUS (BEAKER) (test code = 3.2 mg/dL 2.3-4.7 604) Loader [employer] Grinder ID - ADMINPOCT-GLUCOSE [id number] 16:59:00 Test Item Value Reference Range Interpretation Comments POC-GLUCOSE METER 143 mg/dL 70-110 H : TESTED A T [facility] [address] (BEAKER) (test code = [place], 1538) [address]: Loader Magazine Grinder/Techni martin ID = [id number] for RACHEL SAHNI BASIC METABOLIC [id number] 14:26:00 Test Item Value Reference Range Interpretation Comments SODIUM (BEAKER) 135 meq/L 136-145 L (test code = 381) POTASSIUM (BEAKER) 5.8 meq/L 3.5-5.1 H (test code = 379) CHLORIDE (BEAKER) 104 meq/L 98-107 (test code = 382) CO2 (BEAKER) (test 26 meq/L 22-29 code = 355) BLOOD UREA NITROGEN 26 mg/dL 7-21 H (BEAKER) (test code = 354) CREATININE (BEAKER) 0.71 mg/dL 0.57-1.25 (test code = 358) GLUCOSE RANDOM 147 mg/dL 70-105 H (BEAKER) (test code = 652) CALCIUM (BEAKER) 8.0 mg/dL 8.4-10.2 L Discordant CALCIUM (test code = 697) result com pared to previous result ; clinical correl ation required EGFR (BEAKER) (test 106 ESTIMATE D GFR IS NOT code = 1092) mL/min/1.73 sq ACCURATE A S m CREATININE FABIENNE EMI IN PREDICTING GLOMERULAR FILTRATION RATE . ESTIMATED GFR I S NOT APPLICABLE FOR DIALYSIS PATIEN TS. Loader Magazine Grinder ID - SHYAM [id number] 14:19:00 Test Item Value Reference Range Interpretation Comments MAGNESIUM (BEAKER) (test code = 1.8 mg/dL 1.6-2.6 627) Loader [employer] Grinder ID - SHYAM [id number] 14:19:00 Test Item Value Reference Range Interpretation Comments PHOSPHORUS (BEAKER) (test code = 2.8 mg/dL 2.3-4.7 604) Loader Magazine Grinder ID - SHYAM CCalcium, [id number] 11:55:00 Test Item Value Reference Range Interpretation Comments Calcium, Ion (test code = 1994-3) 1.09 mmol/L 1.12-1.27 L pH, Blood (test code = 78644-3) 7.47 Lab Interpretation (test code = Abnormal 08590-1) [facility] [id number] 11:55:00 Test Item Value Reference Range Interpretation Comments CALCIUM IONIZED (BEAKER) (test 1.09 mmol/L 1.12-1.27 L code = 698) PH, BLOOD (BEAKER) (test code = 7.47 1810) [id number] 11:42:00 Test Item Value Reference Range Interpretation Comments MAGNESIUM (BEAKER) (test code = 1.1 mg/dL 1.6-2.6 L 627) Loader [employer] Grinder ID - SHYAM CPOCT-GLUCOSE [id number] 11:32:00 Test Item Value Reference Range Interpretation Comments POC-GLUCOSE METER 118 mg/dL 70-110 H : [facility] (BEAKER) (test code = [place], 1538) [address]: Loader Magazine Grinder/Techni martin ID = [id number] for RACHEL SAHNI BASIC METABOLIC [id number] 11:28:00 Test Item Value Reference Range Interpretation Comments SODIUM (BEAKER) 140 meq/L 136-145 (test code = 381) POTASSIUM (BEAKER) 2.6 meq/L 3.5-5.1 LL (test code = 379) CHLORIDE (BEAKER) 118 meq/L 98-107 H (test code = 382) CO2 (BEAKER) (test 17 meq/L 22-29 L code = 355) BLOOD UREA NITROGEN 20 mg/dL 7-21 (BEAKER) (test code = 354) CREATININE (BEAKER) 0.45 mg/dL 0.57-1.25 L (test code = 358) GLUCOSE RANDOM 89 mg/dL 70-105 (BEAKER) (test code = 652) CALCIUM (BEAKER) 4.8 mg/dL 8.4-10.2 LL (test code = 697) EGFR (BEAKER) (test 179 mL/min/1.73 ESTIM ATED GFR IS code = 1092) sq m NOT ACCURATE CREATININE CLEARANCE IN PREDICTING GLOMERULAR FILTRATION RATE . ESTIMATED GFR I S NOT APPLICABLE FOR DIALYSIS PATIEN TS. Load[employer] Grinder ID - SHYAM [id number] 11:06:00 Test Item Value Reference Range Interpretation Comments PHOSPHORUS (BEAKER) (test code = 1.8 mg/dL 2.3-4.7 L 604) [employer] Grinder ID - SHYAM CBLOOD GAS, [id number] 11:00:00 Test Item Value Reference Range Interpretation Comments PH ARTERIAL (BEAKER) (test code = 7.47 7.35-7.45 H 383) PCO2 ARTERIAL (BEAKER) (test code 42 mm Hg 35-45 = 384) PO2 ARTERIAL (BEAKER) (test code = 183 mm Hg 80-90 H 385) O2 SATURATION ARTERIAL (BEAKER) 99.3 % 96.0-97.0 H (test code = 386) HCO3 ARTERIAL (BEAKER) (test code 30 mmol/L 21-29 H = 388) BASE EXCESS ARTERIAL (BEAKER) 5.5 mmol/L -2.0-3.0 H (test code = 387) PATIENT TEMPERATURE (BEAKER) (test 37.0 code = 1818) MRSA [id number] 10:48:00 Test Item Value Reference Range Interpretation Comments Result (test code = 6463-4) No [id number] 10:48:00 Test Item Value Reference Range Interpretation Comments CULTURE (BEAKER) (test code No MRSA isolated = 1095) Urine [id number] 10:24:00 Test Item Value Reference Range Interpretation Comments Result (test code = 6463-4) No growth [facility] [id number] 06:29:00 Test Item Value Reference Range Interpretation Comments POC-GLUCOSE METER 130 mg/dL 70-110 H : TESTED A T [facility] 6720 (BEAKER) (test code [facility] = 1538) [address]: Loader Magazine Grinder/Techni martin ID = [id number] for VIDA SCRUGGS [id number] 05:45:00 Test Item Value Reference Range Interpretation Comments Procalcitonin (test code = 1.51 ng/mL <0.05 H 77847-7) JUDI (test code = JUDI) SEPSIS RISK (ng/mL)Low: 0.05-0.50Intermedi ate: 0.51-2.00High: >=2.01 Lab Interpretation (test Abnormal code = 43048-0) [id number] 05:45:00 Test Item Value Reference Range Interpretation Comments PROCALCITONIN (BEAKER) (test code 1.51 ng/mL <0.05 H = 3036) SEPSIS RISK (ng/mL)Low: 0.05-0.50Intermediate: 0.51-2.00High: >=2.01CBC W/PLT COUNT & AUTO [id number] 05:26:00 Test Item Value Reference Range Interpretation Comments WHITE BLOOD CELL COUNT (BEAKER) 10.6 K/ L 3.5-10.5 H (test code = 775) RED BLOOD CELL COUNT (BEAKER) 2.96 M/ L 4.63-6.08 L (test code = 761) HEMOGLOBIN (BEAKER) (test code = 9.3 GM/DL 13.7-17.5 L 410) HEMATOCRIT (BEAKER) (test code = 29.0 % 40.1-51.0 L 411) MEAN CORPUSCULAR VOLUME (BEAKER) 98.0 fL 79.0-92.2 H (test code = 753) MEAN CORPUSCULAR HEMOGLOBIN 31.4 pg 25.7-32.2 (BEAKER) (test code = 751) MEAN CORPUSCULAR HEMOGLOBIN CONC 32.1 GM/DL 32.3-36.5 L (BEAKER) (test code = 752) RED CELL DISTRIBUTION WIDTH 14.2 % 11.6-14.4 (BEAKER) (test code = 412) PLATELET COUNT (BEAKER) (test 200 K/CU MM 150-450 code = 756) MEAN PLATELET VOLUME (BEAKER) 11.0 fL 9.4-12.4 (test code = 754) NUCLEATED RED BLOOD CELLS 0 /100 WBC 0-0 (BEAKER) (test code = 413) NEUTROPHILS RELATIVE PERCENT 81 % (BEAKER) (test code = 429) LYMPHOCYTES RELATIVE PERCENT 10 % (BEAKER) (test code = 430) MONOCYTES RELATIVE PERCENT 5 % (BEAKER) (test code = 431) EOSINOPHILS RELATIVE PERCENT 3 % (BEAKER) (test code = 432) BASOPHILS RELATIVE PERCENT 0 % (BEAKER) (test code = 437) NEUTROPHILS ABSOLUTE COUNT 8.54 K/ L 1.78-5.38 H (BEAKER) (test code = 670) LYMPHOCYTES ABSOLUTE COUNT 1.02 K/ L 1.32-3.57 L (BEAKER) (test code = 414) MONOCYTES ABSOLUTE COUNT (BEAKER) 0.56 K/ L 0.30-0.82 (test code = 415) EOSINOPHILS ABSOLUTE COUNT 0.34 K/ L 0.04-0.54 (BEAKER) (test code = 416) BASOPHILS ABSOLUTE COUNT (BEAKER) 0.04 K/ L 0.01-0.08 (test code = 417) IMMATURE GRANULOCYTES-RELATIVE 1 % 0-1 PERCENT (BEAKER) (test code = 2801) Lactic Acid, [id number] 05:19:00 Test Item Value Reference Range Interpretation Comments Lactate, Art (test code = 0.8 mmol/L 0.5-2.2 2874) JUDI (test code = JUDI) Loader Magazine Grinder ID - SUKHDEV M Lab Interpretation (test Normal code = 40498-7) [facility], [id number] 05:19:00 Test Item Value Reference Range Interpretation Comments LACTATE BLOOD ARTERIAL (2) 0.8 mmol/L 0.5-2.2 (BEAKER) (test code = 2874) Loader Magazine Grinder ID - SUKHDEV MBLOOD GAS, [id number] 04:56:00 Test Item Value Reference Range Interpretation Comments PH ARTERIAL (BEAKER) (test code = 7.56 7.35-7.45 H 383) PCO2 ARTERIAL (BEAKER) (test code 34 mm Hg 35-45 L = 384) PO2 ARTERIAL (BEAKER) (test code = 191 mm Hg 80-90 H 385) O2 SATURATION ARTERIAL (BEAKER) 99.5 % 96.0-97.0 H (test code = 386) HCO3 ARTERIAL (BEAKER) (test code 29 mmol/L 21-29 = 388) BASE EXCESS ARTERIAL (BEAKER) 6.5 mmol/L -2.0-3.0 H (test code = 387) PATIENT TEMPERATURE (BEAKER) (test 36.0 code = 1818) FIO2 (BEAKER) (test code = 1819) 36.0 POCT-GLUCOSE [id number] 00:35:00 Test Item Value Reference Range Interpretation Comments POC-GLUCOSE METER 146 mg/dL 70-110 H : TESTED A T [facility] 6720 (BEAKER) (test code [facility], = 1538) [address]: Loader Magazine Grinder/Techni martin ID = [id number] for VIDA SCRUGGS SARS-COV2/RT-PCR ([facility])2020-02-28 19:09:00 Test Item Value Reference Range Interpretation Comments SARS-COV2/RT-PCR (test Negative Not Detected, Negative, code = 5496385) See external report for linked test SARS-COV-2 PERFORMING LAB [facility] (test code = 2242146) Negative result for this test determines that SARS-CoV-2 RNA was not present in the specimen above the Limit of Detection (LOD). However, Negative results do not preclude SARS-CoV-2 infection and should not be used as the sole basis for treatment or patient management decisions. Negative results mustbe combined with clinical observations, patient history, and epidemiological information. A false negative result may occur if a specimen is improperly collected, transported or handled. A false negative result should be considered if patient's recent exposures or clinical presentation indicate that COVID-19 (SARS-CoV-2) is likely and diagnostic tests for other causes of illness are negative. Re-testing should be considered in cases of suspected false negatives.The limit of detection for this assay is 800 copies/mL.This SARS CoV-2 test is a real-time RT-PCR test intended for the qualitative detection of nucleic acid from SARS-CoV-2 in a nasopharyngeal swab specimen collected from individuals suspected of COVID-19 by their healthcare provider.This test has not been Food and Drug [...] is revoked under Section 564(g) of the Act.Fact Sheet for Healthcare Providers:https://www.[employer]/sites/default/files/product/documents/Fact_Shee j_DB_Clooakmzp_Acqo_NIGO-BlN-2.pdfFact Sheet for Healthcare Patients:https://www.[employer]/sites/default/files/product/ documents/Okjm_Xuoyf_Bcvldxbc_Mjoi_XUHF-UyW-0.pdfPerforming Laboratory:[address], [place] [address]XDVM-BZFIMNJ METER 2020-02-28 18:24:00 Test Item Value Reference Range Interpretation Comments POC-GLUCOSE METER 138 mg/dL 70-110 H : TESTED A T [facility] 6720 (BEAKER) (test code = [facility], 1538) 179[address]: Loader Magazine Grinder/Techni martin ID = [id number] for RACHEL SAHNI POCT-GLUCOSE [id number] 11:27:00 Test Item Value Reference Range Interpretation Comments POC-GLUCOSE METER 157 mg/dL 70-110 H : TESTED A T [facility] 6720 (BEAKER) (test code = [facility], 1538) [address]70[address]: Loader Magazine Grinder/Techni martin ID = [id number] for RACHEL SAHNI BASIC METABOLIC [id number] 10:16:00 Test Item Value Reference Range Interpretation Comments SODIUM (BEAKER) 136 meq/L 136-145 (test code = 381) POTASSIUM (BEAKER) 3.8 meq/L 3.5-5.1 (test code = 379) CHLORIDE (BEAKER) 101 meq/L 98-107 (test code = 382) CO2 (BEAKER) (test 27 meq/L 22-29 code = 355) BLOOD UREA NITROGEN 32 mg/dL 7-21 H (BEAKER) (test code = 354) CREATININE (BEAKER) 0.82 mg/dL 0.57-1.25 (test code = 358) GLUCOSE RANDOM 158 mg/dL 70-105 H (BEAKER) (test code = 652) CALCIUM (BEAKER) 8.0 mg/dL 8.4-10.2 L (test code = 697) EGFR (BEAKER) (test 90 mL/min/1.73 ESTIMA HAWK GFR IS code = 1092) sq m NOT ACCURATE CREATININE CLEARANCE IN PREDICTING GLOMERULAR FILTRATION RATE . ESTIMATED GFR I S NOT APPLICABLE FOR DIALYSIS PATIEN TS. Loader Magazine Grinder ID - MACKENZIE FManual [id number] 10:08:00 Test Item Value Reference Range Interpretation Comments % Neutros (test code = 75 % 2816) % Lymphs (test code = 8 % 2817) % Monos (test code = 3 % 2818) % Eos (test code = 2819) 2 % % Baso (test code = 2820) 1 % % Bands (test code = 11 % 0-10 H 2826) # Neutros (test code = 10.28 K/ul 1.78-5.38 H 2830) # Lymphs (test code = 1.10 K/ul 1.32-3.57 L 2831) # Monos (test code = 0.41 K/uL 0.3-0.82 2832) # Eos (test code = 2834) 0.27 K/uL 0.04-0.54 # Baso (test code = 2835) 0.14 K/uL 0.01-0.08 H # Bands (test code = 1.51 K/uL 0-0.8 H 2840) Total Counted (test code 100 = 1351) RBC Morphology (test code Normal = 762) Smudge Cells (test code = Present 1371) Giant Platelet (test code Present = 313) Platelet Conc (test code Adequate = 3438) JUDI (test code = JUDI) Loader Magazine Grinder ID - Mey Linares comments: Slide comments: Lab Interpretation (test Abnormal code = 22748-2) [facility] W/PLT COUNT & AUTO [id number] 10:08:00 Test Item Value Reference Range Interpretation Comments WHITE BLOOD CELL COUNT (BEAKER) 13.7 K/ L 3.5-10.5 H (test code = 775) RED BLOOD CELL COUNT (BEAKER) 3.30 M/ L 4.63-6.08 L (test code = 761) HEMOGLOBIN (BEAKER) (test code = 10.6 GM/DL 13.7-17.5 L 410) HEMATOCRIT (BEAKER) (test code = 32.3 % 40.1-51.0 L 411) MEAN CORPUSCULAR VOLUME (BEAKER) 97.9 fL 79.0-92.2 H (test code = 753) MEAN CORPUSCULAR HEMOGLOBIN 32.1 pg 25.7-32.2 (BEAKER) (test code = 751) MEAN CORPUSCULAR HEMOGLOBIN CONC 32.8 GM/DL 32.3-36.5 (BEAKER) (test code = 752) RED CELL DISTRIBUTION WIDTH 14.0 % 11.6-14.4 (BEAKER) (test code = 412) PLATELET COUNT (BEAKER) (test 252 K/CU MM 150-450 code = 756) MEAN PLATELET VOLUME (BEAKER) 10.4 fL 9.4-12.4 (test code = 754) NUCLEATED RED BLOOD CELLS 0 /100 WBC 0-0 (BEAKER) (test code = 413) (CELLAVISION MANUAL DIFF)2020-02-28 10:08:00 Test Item Value Reference Range Interpretation Comments NEUTROPHILS - REL 75 % (CELLAVISION)(BEAKER) (test code = 2816) LYMPHOCYTES - REL 8 % (CELLAVISION)(BEAKER) (test code = 2817) MONOCYTES - REL 3 % (CELLAVISION)(BEAKER) (test code = 2818) EOSINOPHILS - REL 2 % (CELLAVISION)(BEAKER) (test code = 2819) BASOPHILS - REL 1 % (CELLAVISION)(BEAKER) (test code = 2820) BANDS - REL (CELLAVISION)(BEAKER) 11 % 0-10 H (test code = 2826) NEUTROPHILS - ABS 10.28 K/ul 1.78-5.38 H (CELLAVISION)(BEAKER) (test code = 2830) LYMPHOCYTES - ABS 1.10 K/ul 1.32-3.57 L (CELLAVISION)(BEAKER) (test code = 2831) MONOCYTES - ABS 0.41 K/uL 0.30-0.82 (CELLAVISION)(BEAKER) (test code = 2832) EOSINOPHILS - ABS 0.27 K/uL 0.04-0.54 (CELLAVISION)(BEAKER) (test code = 2834) BASOPHILS - ABS 0.14 K/uL 0.01-0.08 H (CELLAVISION)(BEAKER) (test code = 2835) BANDS - ABS (CELLAVISION)(BEAKER) 1.51 K/uL 0.00-0.80 H (test code = 2840) TOTAL COUNTED (BEAKER) (test code 100 = 1351) RBC MORPHOLOGY (BEAKER) (test code Normal = 762) SMUDGE CELLS (BEAKER) (test code = Present 1371) GIANT PLATELETS (BEAKER) (test Present code = 313) PLATELET CONCENTRATION Adequate (CELLAVISION)(BEAKER) (test code = 3438) Loader Magazine Grinder ID - Mey Juárezmedina comments: Slide comments:BLOOD GAS, ARTERIAL 2020-02-28 09:31:00 Test Item Value Reference Range Interpretation Comments PH ARTERIAL (BEAKER) (test code = 7.51 7.35-7.45 H 383) PCO2 ARTERIAL (BEAKER) (test code 38 mm Hg 35-45 = 384) PO2 ARTERIAL (BEAKER) (test code = 173 mm Hg 80-90 H 385) O2 SATURATION ARTERIAL (BEAKER) 99.3 % 96.0-97.0 H (test code = 386) HCO3 ARTERIAL (BEAKER) (test code 30 mmol/L 21-29 H = 388) BASE EXCESS ARTERIAL (BEAKER) 6.5 mmol/L -2.0-3.0 H (test code = 387) PATIENT TEMPERATURE (BEAKER) (test 37.4 code = 1818) FIO2 (BEAKER) (test code = 1819) 80.0 2D Echo W/Doppler(CW/PW/Color)2020-02-28 08:42:37Ejection FractionSLEH ECHO HEARTLAB MKCKESSON CPACSInterface, External Ris In - 02/28/2020 8:42 AM C STTransthoracic Echocardiography Report (TTE) Demographics Patient Name ANAM PURI Date of Study 02/27/2020 GENE Gender Male Visit Number [id number] Race Unknown Room Number 7216 Number Date of 1935 Referring Ronald Michaels Physician Nilda Age 84 year(s) 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 No apical views. No Subcostal images. Limited images essentially from a low parasternal window. 1. In the very limited views, the LV appears to be grossly normal in size with normal systolic function and estimated EF >60%. Unable to evaluate for segmental wall motion or diastolic function. 2. In the very limited views of the RV, there is suggestion of mild RV enlargement. RV systolic function appears grossly normal. 3. In the limited views, suggestion of mild RA enlargement. 4. No significant valvular stenosis or regurgitation noted on limited 2D, Color Doppler exam of the valves. 5. No significant pericardialeffusion is visualized. Previous Study Compared to the previous study dated 02/10/2020, no significant changes noted. Both studies are very technically limited studies. Signature Findings Rhythm/BP Regular sinus rhythm during the exam. Left Ventricle Very technically difficult study. No apical views. No Subcostal images. Limited imagesessentially from a low parasternal window. In the very limited views, the LV appears to be grossly normal in size with normal systolic function and estimated EF > 60%. Unable to evaluate for segmental wall motion or diastolic function. Left Atrium The left atrium is not well visualized. Unable to evaluate for LA size. Right Ventricle In thevery limited views of the RV, there is suggestion of mild RV enlargement. RV systolic function appears grossly normal. Right Atrium The right atrium is not well visualized. In the limited views, suggestion of mild RA enlargement. Atrial Septum Normal interatrial septum by available 2D, Color Doppler exam. Aortic Valve Trileaflet aortic valve with Mild AoV cusp thickening. Valve leaflets appear to open well. Inadequate spectral Doppler evaluation. No significant AI on color Doppler exam. Mitral Valve In the limited views suggestion of mild thickening of the mitral leaflets. Trace MR. Tricuspid Valve In the limited views, the tricuspid valve appears grossly normal. Mild TR. Unable to estimate peak s ystolic PA pressure; inadequate TR velocity signal. Pulmonic Valve PV not well seen. Aorta [...] LVOT Diameter: 2.02 cm LVOT Area: 3.2 cm^2CH[facility] HospitalLactic acid, [id number] 05:15:00 Test Item Value Reference Range Interpretation Comments Lactate, Venous (test 1.74 mmol/L 0.5-2.2 Specim en code = 2872) slightly hemolyzed JUDI (test code = JUDI) Loader Magazine Grinder ID - EDASI Lab Interpretation Normal (test code = 83950-4) [facility] HospitalLA[facility]ID, [id number] 05:15:00 Test Item Value Reference Range Interpretation Comments LACTATE BLOOD VENOUS 1.74 mmol/L 0.50-2.20 Specime n slightly (2) (BEAKER) (test hemolyzed code = 2872) Loader Magazine Grinder ID - EDASIPOCT-GLUCOSE [id number] 05:01:00 Test Item Value Reference Range Interpretation Comments POC-GLUCOSE METER 145 mg/dL 70-110 H : TESTED A T [facility] 6720 (BEAKER) (test code = [facility], 1538) 67492: Loader Magazine Grinder/Techni martin ID = [id number] for VAN VELEZ BASIC METABOLIC [id number] 04:03:00 Test Item Value Reference Range Interpretation Comments SODIUM (BEAKER) 138 meq/L 136-145 (test code = 381) POTASSIUM (BEAKER) 4.6 meq/L 3.5-5.1 (test code = 379) CHLORIDE (BEAKER) 102 meq/L 98-107 (test code = 382) CO2 (BEAKER) (test 29 meq/L 22-29 code = 355) BLOOD UREA NITROGEN 32 mg/dL 7-21 H (BEAKER) (test code = 354) CREATININE (BEAKER) 0.84 mg/dL 0.57-1.25 (test code = 358) GLUCOSE RANDOM 135 mg/dL 70-105 H (BEAKER) (test code = 652) CALCIUM (BEAKER) 8.2 mg/dL 8.4-10.2 L (test code = 697) EGFR (BEAKER) (test 87 mL/min/1.73 ESTIMA HAWK GFR IS code = 1092) sq m NOT ACCURATE CREATININE CLEARANCE IN PREDICTING GLOMERULAR FILTRATION RATE . ESTIMATED GFR I S NOT APPLICABLE FOR DIALYSIS PATIEN TS. Loader Magazine Grinder ID - [id number] 04:03:00 Test Item Value Reference Range Interpretation Comments MAGNESIUM (BEAKER) (test code = 2.0 mg/dL 1.6-2.6 627) Loader Magazine Grinder ID - [id number] 04:03:00 Test Item Value Reference Range Interpretation Comments PHOSPHORUS (BEAKER) (test code = 4.0 mg/dL 2.3-4.7 604) Loader Magazine Grinder ID - EDASICALCIUM, [id number] 03:45:00 Test Item Value Reference Range Interpretation Comments CALCIUM IONIZED (BEAKER) (test 1.11 mmol/L 1.12-1.27 L code = 698) PH, BLOOD (BEAKER) (test code = 7.49 1810) BLOOD GAS, [id number] 03:43:00 Test Item Value Reference Range Interpretation Comments PH ARTERIAL (BEAKER) (test code = 7.48 7.35-7.45 H 383) PCO2 ARTERIAL (BEAKER) (test code 41 mm Hg 35-45 = 384) PO2 ARTERIAL (BEAKER) (test code = 112 mm Hg 80-90 H 385) O2 SATURATION ARTERIAL (BEAKER) 98.3 % 96.0-97.0 H (test code = 386) HCO3 ARTERIAL (BEAKER) (test code 30 mmol/L 21-29 H = 388) BASE EXCESS ARTERIAL (BEAKER) 6.0 mmol/L -2.0-3.0 H (test code = 387) PATIENT TEMPERATURE (BEAKER) (test 37.5 code = 1818) FIO2 (BEAKER) (test code = 1819) 40.0 BLOOD GAS, [id number] 00:44:00 Test Item Value Reference Range Interpretation Comments PH ARTERIAL (BEAKER) (test code = 7.48 7.35-7.45 H 383) PCO2 ARTERIAL (BEAKER) (test code 40 mm Hg 35-45 = 384) PO2 ARTERIAL (BEAKER) (test code = 135 mm Hg 80-90 H 385) O2 SATURATION ARTERIAL (BEAKER) 98.8 % 96.0-97.0 H (test code = 386) HCO3 ARTERIAL (BEAKER) (test code 29 mmol/L 21-29 = 388) BASE EXCESS ARTERIAL (BEAKER) 5.0 mmol/L -2.0-3.0 H (test code = 387) PATIENT TEMPERATURE (BEAKER) (test 37.5 code = 1818) FIO2 (BEAKER) (test code = 1819) 40.0 POCT-GLUCOSE [id number] 00:26:00 Test Item Value Reference Range Interpretation Comments POC-GLUCOSE METER 143 mg/dL 70-110 H : TESTED A T [facility] 6720 (BEAKER) (test code = [facility] H[facility], 1538) [address]: Loader Magazine Grinder/Techni martin ID = [id number] for VAN VELEZ (CELLAVISION MANUAL DIFF)2020-02-27 22:02:00 Test Item Value Reference Range Interpretation Comments NEUTROPHILS - REL 48 % (CELLAVISION)(BEAKER) (test code = 2816) LYMPHOCYTES - REL 8 % (CELLAVISION)(BEAKER) (test code = 2817) MONOCYTES - REL 1 % (CELLAVISION)(BEAKER) (test code = 2818) BASOPHILS - REL 2 % (CELLAVISION)(BEAKER) (test code = 2820) BANDS - REL (CELLAVISION)(BEAKER) 41 % 0-10 H (test code = 2826) NEUTROPHILS - ABS 8.16 K/ul 1.78-5.38 H (CELLAVISION)(BEAKER) (test code = 2830) LYMPHOCYTES - ABS 1.36 K/ul 1.32-3.57 (CELLAVISION)(BEAKER) (test code = 2831) MONOCYTES - ABS 0.17 K/uL 0.30-0.82 L (CELLAVISION)(BEAKER) (test code = 2832) BASOPHILS - ABS 0.34 K/uL 0.01-0.08 H (CELLAVISION)(BEAKER) (test code = 2835) BANDS - ABS (CELLAVISION)(BEAKER) 6.97 K/uL 0.00-0.80 H (test code = 2840) TOTAL COUNTED (BEAKER) (test code = 100 1351) RBC MORPHOLOGY (BEAKER) (test code Normal = 762) SMUDGE CELLS (BEAKER) (test code = Present 1371) GIANT PLATELETS (BEAKER) (test code Present = 313) PLATELET CONCENTRATION Adequate (CELLAVISION)(BEAKER) (test code = 8628) Loader Magazine Grinder ID - kita Roberson comments: Slide comments:BASIC METABOLIC PANEL 2020-02-27 21:51:00 Test Item Value Reference Range Interpretation Comments SODIUM (BEAKER) 137 meq/L 136-145 (test code = 381) POTASSIUM (BEAKER) 5.1 meq/L 3.5-5.1 (test code = 379) CHLORIDE (BEAKER) 102 meq/L 98-107 (test code = 382) CO2 (BEAKER) (test 27 meq/L 22-29 code = 355) BLOOD UREA NITROGEN 35 mg/dL 7-21 H (BEAKER) (test code = 354) CREATININE (BEAKER) 0.93 mg/dL 0.57-1.25 (test code = 358) GLUCOSE RANDOM 155 mg/dL 70-105 H (BEAKER) (test code = 652) CALCIUM (BEAKER) 8.3 mg/dL 8.4-10.2 L (test code = 697) EGFR (BEAKER) (test 78 mL/min/1.73 ESTIMA HAWK GFR IS code = 1092) sq m NOT ACCURATE CREATININE CLEARANCE IN PREDICTING GLOMERULAR FILTRATION RATE . ESTIMATED GFR I S NOT APPLICABLE FOR DIALYSIS PATIEN TS. Loader Magazine Grinder ID - [id number] 21:51:00 Test Item Value Reference Range Interpretation Comments MAGNESIUM (BEAKER) (test code = 1.7 mg/dL 1.6-2.6 627) Loader Magazine Grinder ID - [id number] 21:51:00 Test Item Value Reference Range Interpretation Comments PHOSPHORUS (BEAKER) (test code = 4.1 mg/dL 2.3-4.7 604) Loader Magazine Grinder ID - BSLACTIC ACID, [id number] 21:48:00 Test Item Value Reference Range Interpretation Comments LACTATE BLOOD 2.8 mmol/L 0.5-2.2 H Specimen sligh tly ARTERIAL (2) (BEAKER) hemoly zed (test code = 2874) Loader Magazine Grinder ID - BSCBC W/PLT COUNT & AUTO [id number] 21:37:00 Test Item Value Reference Range Interpretation Comments WHITE BLOOD CELL COUNT (BEAKER) 17.0 K/ L 3.5-10.5 H (test code = 775) RED BLOOD CELL COUNT (BEAKER) 3.54 M/ L 4.63-6.08 L (test code = 761) HEMOGLOBIN (BEAKER) (test code = 11.5 GM/DL 13.7-17.5 L 410) HEMATOCRIT (BEAKER) (test code = 33.8 % 40.1-51.0 L 411) MEAN CORPUSCULAR VOLUME (BEAKER) 95.5 fL 79.0-92.2 H (test code = 753) MEAN CORPUSCULAR HEMOGLOBIN 32.5 pg 25.7-32.2 H (BEAKER) (test code = 751) MEAN CORPUSCULAR HEMOGLOBIN CONC 34.0 GM/DL 32.3-36.5 (BEAKER) (test code = 752) RED CELL DISTRIBUTION WIDTH 14.0 % 11.6-14.4 (BEAKER) (test code = 412) PLATELET COUNT (BEAKER) (test 269 K/CU MM 150-450 code = 756) MEAN PLATELET VOLUME (BEAKER) 10.1 fL 9.4-12.4 (test code = 754) NUCLEATED RED BLOOD CELLS 0 /100 WBC 0-0 (BEAKER) (test code = 413) BLOOD GAS, [id number] 21:22:00 Test Item Value Reference Range Interpretation Comments PH ARTERIAL (BEAKER) (test code = 7.52 7.35-7.45 H 383) PCO2 ARTERIAL (BEAKER) (test code 36 mm Hg 35-45 = 384) PO2 ARTERIAL (BEAKER) (test code = 125 mm Hg 80-90 H 385) O2 SATURATION ARTERIAL (BEAKER) 98.7 % 96.0-97.0 H (test code = 386) HCO3 ARTERIAL (BEAKER) (test code 29 mmol/L 21-29 = 388) BASE EXCESS ARTERIAL (BEAKER) 5.9 mmol/L -2.0-3.0 H (test code = 387) PATIENT TEMPERATURE (BEAKER) (test 37.5 code = 1818) FIO2 (BEAKER) (test code = 1819) 50.0 CALCIUM, [id number] 21:22:00 Test Item Value Reference Range Interpretation Comments CALCIUM IONIZED (BEAKER) (test 1.09 mmol/L 1.12-1.27 L code = 698) PH, BLOOD (BEAKER) (test code = 7.53 1810) CT, CHEST, WITHOUT [id number] 20:09:00Unlisted Reason for Exam - Click Yes and Enter Reason Below->No [facility] 1935 Sex: MFINAL REPORT TECHNIQUE: CT of the chest, abdomen, and pelvis WITHOUT intravenous contrast and WITHOUT oral contrast. Dose modulation, iterative reconstruction, and/or weight-based adjustment of the mA/kV was utilized to reduce the radiation dose to as low as reasonablyachievable. INDICATION: Postprocedural septic shock. COMPARISON: 02/10/2020. FINDINGS: ABSENCE OF IN TRAVENOUS CONTRAST DECREASES SENSITIVITY FOR DETECTION OF FOCAL LESIONS AND VASCULAR PATHOLOGY. LINES/TUBES: Endotracheal tube terminates 2.4 cm cephalad to the yolette. A left transjugular central venous catheter terminates in the SVC. LUNGS AND AIRWAYS: Bibasilar left greater than right consolidativeopacities with a scattered adjacent tree-in-bud clustered opacities throughout the left lower lobe and lingula, and to a lesser degree the right lower lobe and lateral segment of the right middle lobe.Tree and bud opacities opacities are also within the inferior aspect of both upper lobes. No focal lesion. Distal bronchioles are intermittently opacified. Central airways are otherwise clear.PLEURA: No pleural effusion and no pneumothorax.HEART AND MEDIASTINUM: The visualized thyroid gland is normal. No significant mediastinal, hilar, or axillary lymphadenopathy. Heart is normal size. Moderate coronary atherosclerotic calcifications. No pericardial effusion. HEPATOBILIARY: Unchanged fluid attenuating liver cyst with axial measurements of 4.1 x 3.7 cm and cyst adjacent to the gallbladder fossa with measurements of 2.8 x 2.0 cm. Gallbladder is unremarkable. No biliary ductal dilatation.SPLEEN: No s plenomegaly.PANCREAS: No focal masses or ductal dilatation. ADRENALS: No adrenal nodules.KIDNEYS/URETERS: No hydronephrosis, stones, or exophytic masses. Unchanged left renal fluid attenuating cyst that is 5.7 x 6.0 cm. Nonobstructing calculi at the lower pole the right kidney up to 0.3 cm diameter.PELVIC ORGANS/BLADDER: Melissa catheter in place. Prostate is enlarged, as before. PERITONEUM/RETROPERITONEUM: No free air or fluid.LYMPH NODES: No lymphadenopathy.VESSELS: Atherosclerosis of the aorta and branching vessels without aneurysmal dilatation. GI TRACT: Percutaneous gastrostomy tube in place within the stomach. No bowel wall thickening or distention. No bowel obstruction.Appendix not seen. No secondary signs of appendicitis. There are scattered diverticula throughout the sigmoid colon without associated inflammation. BONES AND SOFT TISSUES: No acute osseous abnormality. Advanced degenerative disc disease at L5-S1 with vacuum disc phenomenon No significant soft tissue finding. IMPRESSION: 1.Bibasilar consolidations with surrounding tree-in-bud opacities most concerning for aspiration bronchopneumonia. 2. No acute abnormality within the abdomen or pelvis. 3. Sigmoid diverticulosis without diverticulitis. 4. Liver and renal cysts, as before. 5. Prostamegaly. Signed: Daisy Senior MDReport Verified Date/Time: 02/27/2020 20:09:20 CT, ABDOMEN 2020-02-27 20:09:00septic shock , looking for any abscess / ischemiaUnlisted Reason for Exam - Click Yes and Enter Reason Below->No [facility] 1935 Sex: MFINAL REPORT TECHNIQUE: CT of the chest, abdomen, and pelvis WITHOUT intravenous contrast and WITHOUT oral contrast. Dose modulation, iterative reconstruction, and/or weight-based adjustment of the mA/kV was utilized to reduce the radiation dose to as low as reasonablyachievable. INDICATION: Postprocedural septic shock. COMPARISON: 02/10/2020. FINDINGS: ABSENCE OF IN TRAVENOUS CONTRAST DECREASES SENSITIVITY FOR DETECTION OF FOCAL LESIONS AND VASCULAR PATHOLOGY. LINES/TUBES: Endotracheal tube terminates 2.4 cm cephalad to the [place]. A left transjugular central venous catheter terminates in the SVC. LUNGS AND AIRWAYS: Bibasilar left greater than right consolidativeopacities with a scattered adjacent tree-in-bud clustered opacities throughout the left lower lobe and lingula, and to a lesser degree the right lower lobe and lateral segment of the right middle lobe.Tree and bud opacities opacities are also within the inferior aspect of both upper lobes. No focal lesion. Distal bronchioles are intermittently opacified. Central airways are otherwise clear.PLEURA: No pleural effusion and no pneumothorax.HEART AND MEDIASTINUM: The visualized thyroid gland is normal. No significant mediastinal, hilar, or axillary lymphadenopathy. Heart is normal size. Moderate coronary atherosclerotic calcifications. No pericardial effusion. HEPATOBILIARY: Unchanged fluid attenuating liver cyst with axial measurements of 4.1 x 3.7 cm and cyst adjacent to the gallbladder fossa with measurements of 2.8 x 2.0 cm. Gallbladder is unremarkable. No biliary ductal dilatation.SPLEEN: No s plenomegaly.PANCREAS: No focal masses or ductal dilatation. ADRENALS: No adrenal nodules.KIDNEYS/URETERS: No hydronephrosis, stones, or exophytic masses. Unchanged left renal fluid attenuating cyst that is 5.7 x 6.0 cm. Nonobstructing calculi at the lower pole the right kidney up to 0.3 cm diameter.PELVIC ORGANS/BLADDER: Melissa catheter in place. Prostate is enlarged, as before. PERITONEUM/RETROPERITONEUM: No free air or fluid.LYMPH NODES: No lymphadenopathy.VESSELS: Atherosclerosis of the aorta and branching vessels without aneurysmal dilatation. GI TRACT: Percutaneous gastrostomy tube in place within the stomach. No bowel wall thickening or distention. No bowel obstruction.Appendix not seen. No secondary signs of appendicitis. There are scattered diverticula throughout the sigmoid colon without associated inflammation. BONES AND SOFT TISSUES: No acute osseous abnormality. Advanced degenerative disc disease at L5-S1 with vacuum disc phenomenon No significant soft tissue finding. IMPRESSION: 1.Bibasilar consolidations with surrounding tree-in-bud opacities most concerning for aspiration bronchopneumonia. 2. No acute abnormality within the abdomen or pelvis. 3. Sigmoid diverticulosis without diverticulitis. 4. Liver and renal cysts, as before. 5. Prostamegaly. Signed: Daisy Senior MDReport Verified Date/Time: 02/27/2020 20:09:20 CT abdomen/pelvis without iv [id number] 20:09:00Interface, External Ris In - 02/27/2020 8:11 PM CSTFINAL REPORT TECHNIQUE: CT of the chest, abdomen, and pelvis WITHOUT intravenous contrast and WITHOUT oral contrast. Dose modulation, iterative reconstruction, and/or weight-based adjustment of the mA/kV was utilized to reduce the radiation dose to as low as reasonably achievable. INDICATION: Postprocedural septic shock. COMPARISON: 02/10/2020. FINDINGS: ABSENCE OF INTRAVENOUS CONTRAST DECREASES SENSITIVITY FOR DETECTION OF FOCAL LESIONS AND VASCULAR PATHOLOGY. LINES/TUBES: Endotracheal tube terminates 2.4 cm cephalad to the yolette. A left transjugular central venous catheter terminates in the SVC. LUNGS AND AIRWAYS: Bibasilar left greater than right consolidative opacities with a scattered adjacent tree-in-bud clustered opacities throughout the left lower lobe and lingula, and to a lesser degree the right lower lobe andlateral segment of the right middle lobe. Tree and bud opacities opacities are also within the inferior aspect of both upper lobes. No focal lesion. Distal bronchioles are intermittently opacified. Tristen tral airways are otherwise clear.PLEURA: No pleural effusion and no pneumothorax.HEART AND MEDIASTINUM: The visualized thyroid gland is normal. No significant mediastinal, hilar, or axillary lymphadenopathy. Heart is normal size. Moderate coronary atherosclerotic calcifications. No pericardial effusion. HEPATOBILIARY: Unchanged fluid attenuating liver cyst with axial measurements of 4.1 x 3.7 cm and cyst adjacent to the gallbladder fossa with measurements of 2.8 x 2.0 cm. Gallbladder is unremarkable. No biliary ductal dilatation.SPLEEN: No splenomegaly.PANCREAS: No focal masses or ductal dilatation. ADRENALS: No adrenal nodules.KIDNEYS/URETERS: No hydronephrosis, stones, or exophytic masses. Unchanged left renal fluid attenuating cyst that is 5.7 x 6.0 cm. Nonobstructing calculi at the lower polethe right kidney up to 0.3 cm diameter.PELVIC ORGANS/BLADDER: Melissa catheter in place. Prostate is enlarged, as before. PERITONEUM/RETROPERITONEUM: No free air or fluid.LYMPH NODES: No lymphadenopathy.VESSELS: Atherosclerosis of the aorta and branching vessels without aneurysmal dilatation. GI TRACT: Percutaneous gastrostomy tube in place within the stomach. No bowel wall thickening or distention. Nobowel obstruction.Appendix not seen. No secondary signs of appendicitis. There are scattered diverticula throughout the sigmoid colon without associated inflammation. BONES AND SOFT TISSUES: No acute osseous abnormality. Advanced degenerative disc disease at L5-S1 with vacuum disc phenomenon No significant soft tissue finding. IMPRESSION: 1. Bibasilar consolidations with surrounding tree-in-bud opacities most concerning for aspiration bronchopneumonia. 2. No acute abnormality within the abdomen or pelvis. 3. Sigmoid diverticulosis without diverticulitis. 4. Liver and renal cysts, as before. 5. Prostamegaly. Signed: Daisy Senior MDReport Verified Date/Time: 02/27/2020 20:09:20 [facility] [id number] 20:09:00Interface, External Ris In - 02/27/2020 8:11 PM CSTFINAL REPORT TECHNIQUE: CT of the chest, abdomen, and pelvis WITHOUT intravenous contrast and WITHOUT oral contrast. Dose modulation, iterative reconstruction, and/or weight-based adjustment of the mA/kV was utilized to reduce the radiation dose to as low as reasonably achievable. INDICATION: Postprocedural septic shock. COMPARISON: 02/10/2020. FINDINGS: ABSENCE OF INTRAVENOUS CONTRAST DECREASES SENSITIVITY FOR DETECTION OF FOCAL LESIONS AND VASCULAR PATHOLOGY. LINES/TUBES: Endotracheal tube terminates 2.4 cm cephalad to the yolette. A left transjugular central venous catheter terminates in the SVC. LUNGS AND AIRWAYS: Bibasilar left greater than right consolidative opacities with a scattered adjacent tree-in-bud clustered opacities throughout the left lower lobe and lingula, and to a lesser degree the right lower lobe andlateral segment of the right middle lobe. Tree and bud opacities opacities are also within the inferior aspect of both upper lobes. No focal lesion. Distal bronchioles are intermittently opacified. Central airways are otherwise clear.PLEURA: No pleural effusion and no pneumothorax.HEART AND MEDIASTINUM: The visualized thyroid gland is normal. No significant mediastinal, hilar, or axillary lymphadenopathy. Heart is normal size. Moderate coronary atherosclerotic calcifications. No pericardial effusion. HEPATOBILIARY: Unchanged fluid attenuating liver cyst with axial measurements of 4.1 x 3.7 cm and cyst adjacent to the gallbladder fossa with measurements of 2.8 x 2.0 cm. Gallbladder is unremarkable. No biliary ductal dilatation.SPLEEN: No splenomegaly.PANCREAS: No focal masses or ductal dilatation. ADRENALS: No adrenal nodules.KIDNEYS/URETERS: No hydronephrosis, stones, or exophytic masses. Unchanged left renal fluid attenuating cyst that is 5.7 x 6.0 cm. Nonobstructing calculi at the lower polethe right kidney up to 0.3 cm diameter.PELVIC ORGANS/BLADDER: Melissa catheter in place. Prostate is enlarged, as before. PERITONEUM/RETROPERITONEUM: No free air or fluid.LYMPH NODES: No lymphadenopathy.VESSELS: Atherosclerosis of the aorta and branching vessels without aneurysmal dilatation. GI TRACT: Percutaneous gastrostomy tube in place within the stomach. No bowel wall thickening or distention. Nobowel obstruction.Appendix not seen. No secondary signs of appendicitis. There are scattered diverticula throughout the sigmoid colon without associated inflammation. BONES AND SOFT TISSUES: No acute osseous abnormality. Advanced degenerative disc disease at L5-S1 with vacuum disc phenomenon No significant soft tissue finding. IMPRESSION: 1. Bibasilar consolidations with surrounding tree-in-bud opacities most concerning for aspiration bronchopneumonia. 2. No acute abnormality within the abdomen or pelvis. 3. Sigmoid diverticulosis without diverticulitis. 4. Liver and renal cysts, as before. 5. Prostamegaly. Signed: Daisy Senior [facility] Verified Date/Time: 02/27/2020 20:09:20 [facility] [id number] 19:42:00Unlisted Reason for Exam - Click Yes and Enter Reason Below->No [facility] 1935 Sex: MFINAL REPORT CT, BRAIN, WITHOUT CONTRAST INDICATION: Subdural hematoma TECHNIQUE: Noncontrast axial imaging was obtained from the vertex to the skull base. Axial imageswere reconstructed using a bone algorithm. DOSE REDUCTION: Dose modulation, iterative reconstruction, and/or weight-based adjustment of the mA/kV was utilized to reduce the radiation dose to as low as reasonably achievable. COMPARISON: CT 02/26/2020 FINDINGS: Intracranial: Continued evolution of multifocal subarachnoid hemorrhage and trace intraventricular hemorrhage, overall unchanged in extent. No new site of hemorrhage. No evidence of acute territorial infarct. No mass effect. No hydrocephalus. Generalized cerebral atrophy with ex vacuo dilatation of the ventricular system proportionate to sulci. Scattered foci of hypoattenuation within the periventricular and subcortical white matter are a nonspecific finding commonly attributed to chronic small vessel ischemic disease. Osseous structures: No fracture. No suspicious lesion. Paranasal sinuses and mastoid air cells: No evidence of sinusitis. Mastoids are clear. Orbital contents: Globes are intact. IMPRESSION: No significant interval change in subarachnoid and intraventricular hemorrhage. Signed: Adele Guadalupe MDRzoraida Verified Date/Time: 02/27/2020 19:42:19 CT brain without IV [id number] 19:42:00Interface, External Ris In - 02/27/2020 7:[address], BRAIN, WI THOUT CONTRAST INDICATION: Subdural hematoma TECHNIQUE: Noncontrast axial imaging was obtained from the vertex to the skull base. Axial images were reconstructed using a bone algorithm. DOSE REDUCTION:Dose modulation, iterative reconstruction, and/or weight-based adjustment of the mA/kV was utilized to reduce the radiation dose to as low as reasonably achievable. COMPARISON: CT 02/26/2020 FINDINGS: Intracranial: Continued evolution of multifocal subarachnoid hemorrhage and trace intraventricular hemorrhage, overall unchanged in extent. No new site of hemorrhage. No evidence of acute territorial infarct. No mass effect. No hydrocephalus. Generalized cerebral atrophy with ex vacuo dilatation of the ventricular system proportionate to sulci. Scattered foci of hypoattenuation within the periventricular and subcortical white matter are a nonspecific finding commonly attributed to chronic small vessel ischemic disease. Osseous structures: No fracture. No suspicious lesion. Paranasal sinuses and mastoid air cells: No evidence of sinusitis. Mastoids are clear. Orbital contents: Globes are intact. IMPRESSION: No significant interval change in subarachnoid and intraventricular hemorrhage. Signed: Adele Guadalupe Verified Date/Time: 02/27/2020 19:42:19 [facility], NON [id number] 17:34:00Reason for exam:->LIJ central line placementShould this be performed at the bedside?->Yes [facility] 1935 Sex: MFINAL REPORT Chest, 1 view. History: Left IJ central line placement. Comparison: 02/27/2020 at 1032. IMPRESSION: There has been interval placement of a left IJ coursing central venous catheter with distal tip terminating appropriately over the SVC. Endotracheal tube identified in stable position. Multifocal airspace opacities identified bilaterally, unchanged from the recent prior examination. There is no evidence for pneumothorax or significant volume pleural effusion. The cardiomediastinal silhouette is stable in appearance. No acute osseous abnormalities identified. Signed: Adam Pepper Verified Date/Time: 02/27/2020 17:34:14 Reading Location: [address] Consult Reading Room [id number] 17:32:00 Test Item Value Reference Range Interpretation Comments MAGNESIUM (BEAKER) (test code = 1.7 mg/dL 1.6-2.6 627) Loader Magazine Grinder ID - BSBASIC METABOLIC [id number] 16:33:00 Test Item Value Reference Range Interpretation Comments SODIUM (BEAKER) 136 meq/L 136-145 (test code = 381) POTASSIUM (BEAKER) 5.0 meq/L 3.5-5.1 (test code = 379) CHLORIDE (BEAKER) 100 meq/L 98-107 (test code = 382) CO2 (BEAKER) (test 28 meq/L 22-29 code = 355) BLOOD UREA NITROGEN 35 mg/dL 7-21 H (BEAKER) (test code = 354) CREATININE (BEAKER) 0.98 mg/dL 0.57-1.25 (test code = 358) GLUCOSE RANDOM 177 mg/dL 70-105 H (BEAKER) (test code = 652) CALCIUM (BEAKER) 8.5 mg/dL 8.4-10.2 (test code = 697) EGFR (BEAKER) (test 73 mL/min/1.73 ESTIMA HAWK GFR IS code = 1092) sq m NOT ACCURATE CREATININE CLEARANCE IN PREDICTING GLOMERULAR FILTRATION RATE . ESTIMATED GFR I S NOT APPLICABLE FOR DIALYSIS PATIEN TS. Loader Magazine Grinder ID - BSLACTIC ACID, [id number] 16:28:00 Test Item Value Reference Range Interpretation Comments LACTATE BLOOD ARTERIAL (2) 4.4 mmol/L 0.5-2.2 HH (BEAKER) (test code = 2874) Loader Magazine Grinder ID - BSBLOOD GAS, [id number] 15:57:00 Test Item Value Reference Range Interpretation Comments PH ARTERIAL (BEAKER) (test code = 7.49 7.35-7.45 H 383) PCO2 ARTERIAL (BEAKER) (test code 36 mm Hg 35-45 = 384) PO2 ARTERIAL (BEAKER) (test code = 98 mm Hg 80-90 H 385) O2 SATURATION ARTERIAL (BEAKER) 97.8 % 96.0-97.0 H (test code = 386) HCO3 ARTERIAL (BEAKER) (test code 27 mmol/L 21-29 = 388) BASE EXCESS ARTERIAL (BEAKER) 4.0 mmol/L -2.0-3.0 H (test code = 387) PATIENT TEMPERATURE (BEAKER) (test 37.4 code = 1818) FIO2 (BEAKER) (test code = 1819) 40.0 LACTIC ACID, [id number] 15:16:00 Test Item Value Reference Range Interpretation Comments LACTATE BLOOD VENOUS (2) (BEAKER) 5.31 mmol/L 0.50-2.20 HH (test code = 2872) Loader Magazine Grinder ID - EDASIPOCT-GLUCOSE [id number] 15:10:00 Test Item Value Reference Range Interpretation Comments POC-GLUCOSE METER 193 mg/dL 70-110 H : TESTED A T [facility] 6720 (BEAKER) (test code = [place], 1538) [address]: Loader Magazine Grinder/Techni martin ID = [id number] for MARTHA VALDEZ URINALYSIS W/ REFLEX URINE [id number] 14:24:00 Test Item Value Reference Range Interpretation Comments COLOR (BEAKER) (test code = 470) Yellow CLARITY (BEAKER) (test code = Hazy 469) SPECIFIC GRAVITY UA (BEAKER) 1.020 1.001-1.035 (test code = 468) PH UA (BEAKER) (test code = 467) 6.5 5.0-8.0 PROTEIN UA (BEAKER) (test code = 30 mg/dL Negative A 464) GLUCOSE UA (BEAKER) (test code = >1000 mg/dL Negative A 365) KETONES UA (BEAKER) (test code = Negative Negative 371) BILIRUBIN UA (BEAKER) (test code Negative Negative = 462) BLOOD UA (BEAKER) (test code = Large Negative A 461) NITRITE UA (BEAKER) (test code = Negative Negative 465) LEUKOCYTE ESTERASE UA (BEAKER) Trace Negative A (test code = 466) UROBILINOGEN UA (BEAKER) (test 0.2 mg/dL 0.2-1.0 code = 463) RBC UA (BEAKER) (test code = 519) 551 /HPF WBC UA (BEAKER) (test code = 520) 14 /HPF BACTERIA (BEAKER) (test code = Rare 517) MUCUS (BEAKER) (test code = 1574) Rare SOURCE(BEAKER) (test code = 8775) Loader [employer] Grinder ID - [auto]Loader Magazine Grinder ID - [id number] 13:09:00 Test Item Value Reference Range Interpretation Comments MAGNESIUM (BEAKER) (test code = 1.7 mg/dL 1.6-2.6 627) Loader Magazine Grinder ID - EDASIBASIC METABOLIC [id number] 12:46:00 Test Item Value Reference Range Interpretation Comments SODIUM (BEAKER) 133 meq/L 136-145 L (test code = 381) POTASSIUM (BEAKER) 5.8 meq/L 3.5-5.1 H Specimen slightly (test code = 379) hemolyzed CHLORIDE (BEAKER) 100 meq/L 98-107 (test code = 382) CO2 (BEAKER) (test 24 meq/L 22-29 code = 355) BLOOD UREA NITROGEN 39 mg/dL 7-21 H (BEAKER) (test code = 354) CREATININE (BEAKER) 1.16 mg/dL 0.57-1.25 Specimen slightly (test code = 358) hemolyzed GLUCOSE RANDOM 159 mg/dL 70-105 H (BEAKER) (test code = 652) CALCIUM (BEAKER) 8.4 mg/dL 8.4-10.2 (test code = 697) EGFR (BEAKER) (test 60 mL/min/1.73 ESTIMA HAWK GFR IS code = 1092) sq m NOT ACCURATE CREATININE CLEARANCE IN PREDICTING GLOMERULAR FILTRATION RATE . ESTIMATED GFR I S NOT APPLICABLE FOR DIALYSIS PATIEN TS. Loader Magazine Grinder ID - EDASILACTIC ACID, [id number] 12:45:00 Test Item Value Reference Range Interpretation Comments LACTATE BLOOD 4.2 mmol/L 0.5-2.2 HH Specimen sligh tly ARTERIAL (2) (BEAKER) hemoly zed (test code = 2874) Loader Magazine Grinder ID - EDASIProthrombin time/[id number] 12:42:00 Test Item Value Reference Range Interpretation Comments Protime (test code = 18.7 11.9- 14.2 H 5902-2) seconds INR (test code = 1.61 <=5.90 6301-6) JUDI (test code = JUDI) Effective 09/08/2018: PT Reference Range ChangeNew: 11.9-14.2 Previous: 11.7-14.7 RECOMMENDED COUMADIN/WARFARIN INR THERAPY RANGESSTANDARD DOSE: 2.0-3.0 Includes: PROPHYLAXIS for venous thrombosis, systemic embolization; TREATMENT for venous thrombosis and/or pulmonary embolus.HIGH RISK: Target INR is 2.5-3.5 for patients wiht mechanical heart valves. Lab Interpretation Abnormal (test code = 38979-7) [facility] HospitalPROTHROMBIN [facility]/[id number] 12:42:00 Test Item Value Reference Range Interpretation Comments PROTIME (BEAKER) (test code = 18.7 seconds 11.9-14.2 H 759) INR (BEAKER) (test code = 370) 1.61 <=5.90 Effective 09/08/2018: PT Reference Range ChangeNew: 11.9-14.2 Previous: 11.7- 14.7RECOMMENDED COUMADIN/WARFARIN INR THERAPY RANGESSTANDARD DOSE: 2.0-3.0 Includes: PROPHYLAXIS for venous thrombosis, systemic embolization; TREATMENT for venous thrombosis and/or pulmonary embolus.HIGH RISK: Target INR is2.5-3.5 for patients wiht mechanical heart valves.BLOOD GAS, [id number] 12:15:00 Test Item Value Reference Range Interpretation Comments PH ARTERIAL (BEAKER) (test code = 7.27 7.35-7.45 L 383) PCO2 ARTERIAL (BEAKER) (test code 51 mm Hg 35-45 H = 384) PO2 ARTERIAL (BEAKER) (test code 268 mm Hg 80-90 H = 385) O2 SATURATION ARTERIAL (BEAKER) 99.5 % 96.0-97.0 H (test code = 386) HCO3 ARTERIAL (BEAKER) (test code 23 mmol/L 21-29 = 388) BASE EXCESS ARTERIAL (BEAKER) -4.1 mmol/L -2.0-3.0 L (test code = 387) PATIENT TEMPERATURE (BEAKER) 37.4 (test code = 1818) FIO2 (BEAKER) (test code = 1819) 60.0 RAD, CHEST, 1 VIEW, NON [id number] 10:55:00Post-intubationReason for exam:- >post intubationShould this be performed at the bedside?->Yes [facility] 1935 Sex: MFINAL REPORT CLINICAL HISTORY: post intubation TECHNIQUE: 1 view of the chest. COMPARISON: 02/27/2020 IMPRESSION: There is a new ETT terminating 4.5 cm above the yolette. Multifocal bilateral pulmonary infiltrates are similar versus slightly increased. There are no significant appearing effusions. There is no significant cardiomegaly. Signed: Jacob Wright MDReport Verified Date/Time: 02/27/2020 10:55:57 Reading Location: [facility] Radiology Reading Room Comprehensive metabolic [id number] 10:35:00 Test Item Value Reference Range Interpretation Comments Protein, Total (test 6.7 6.0- 8.3 gm/dL code = 2885-2) Albumin (test code = 3.3 g/dL 3.5-5 L 30471-3) Alkaline Phosphatase 96 U/L 40-150 (test code = 6768-6) Total Bilirubin (test 0.8 mg/dL 0.2-1.2 code = 1975-2) Sodium (test code = 133 meq/L 136-145 L 2951-2) Potassium (test code = 6.0 meq/L 3.5-5.1 HH 2823-3) Chloride (test code = 97 meq/L 98-107 L 2075-0) CO2 (test code = 25 meq/L 22-29 2027-9) BUN (test code = 37 mg/dL 7-21 H 3094-0) Creatinine (test code 1.24 mg/dL 0.57-1.25 = 2160-0) Glucose (test code = 165 mg/dL 70-105 H 2345-7) Calcium (test code = 9.3 mg/dL 8.4-10.2 66477-2) AST (test code = 44 U/L 5-34 H 1920-8) ALT (test code = 108 U/L 6-55 H 1742-6) EGFR (test code = 56 mL/min/1.73 [place] [address]-8) NOT ACCURATE CREATININE CLEARANCE IN PREDICTING GLOMERULAR FILTRATION RATE . ESTIMATED GFR I S NOT APPLICABLE FOR DIALYSIS PATIENTS. JUDI (test code = JUDI) Loader Magazine Grinder ID - EDASI Lab Interpretation Abnormal (test code = 65221-8) [facility] HospitalCOMPRE[facility] [id number] 10:35:00 Test Item Value Reference Range Interpretation Comments TOTAL PROTEIN 6.7 gm/dL 6.0-8.3 (BEAKER) (test code = 770) ALBUMIN (BEAKER) 3.3 g/dL 3.5-5.0 L (test code = 1145) ALKALINE PHOSPHATASE 96 U/L 40-150 (BEAKER) (test code = 346) BILIRUBIN TOTAL 0.8 mg/dL 0.2-1.2 (BEAKER) (test code = 377) SODIUM (BEAKER) (test 133 meq/L 136-145 L code = 381) POTASSIUM (BEAKER) 6.0 meq/L 3.5-5.1 HH (test code = 379) CHLORIDE (BEAKER) 97 meq/L 98-107 L (test code = 382) CO2 (BEAKER) (test 25 meq/L 22-29 code = 355) BLOOD UREA NITROGEN 37 mg/dL 7-21 H (BEAKER) (test code = 354) CREATININE (BEAKER) 1.24 mg/dL 0.57-1.25 (test code = 358) GLUCOSE RANDOM 165 mg/dL 70-105 H (BEAKER) (test code = 652) CALCIUM (BEAKER) 9.3 mg/dL 8.4-10.2 (test code = 697) AST (SGOT) (BEAKER) 44 U/L 5-34 H (test code = 353) ALT (SGPT) (BEAKER) 108 U/L 6-55 H (test code = 347) EGFR (BEAKER) (test 56 mL/min/1.73 ESTIMA HAWK GFR IS code = 1092) sq m NOT ACCURATE CREATININE CLEARANCE IN PREDICTING GLOMERULAR FILTRATION RATE . ESTIMATED GFR I S NOT APPLICABLE FOR DIALYSIS PATIEN TS. Loader Magazine Grinder ID - EDASIRAD, CHEST, 1 VIEW, NON [id number] 10:29:00Reason for exam:->Leukocytosis, hx of recurrent aspiration pneumonia. BIlateral Crackles on examShould this be performed at the bedside?->Yes [facility] 1935 Sex: MFINAL REPORT CLINICAL HISTORY: Leukocytosis, hx of recurrent aspirat ion pneumonia. Bilateral Crackles on exam TECHNIQUE: 1 view of the chest. COMPARISON: 02/21/2020 IMPRESSION: There is a new line projecting in the left upper arm. There are increased focal airspace opacities in the left lower lung. There are no significant appearing effusions. There is no cardiomegaly. Signed: Jacob Wright MDReport Verified Date/Time: 02/27/2020 10:29:31 Reading Location: [facility] Radiology Reading Room [facility] [id number] 10:25:00 Test Item Value Reference Range Interpretation Comments Troponin I (test code = <0.01 0-0.03 46427-0) JUDI (test code = JUDI) Troponin I (TnI) levels must be interpreted in the context of the presenting symptoms and the clinical findings. Elevated TnI levels indicate myocardial damage, but are not specific for ischemic heart disease. Elevated TnI levels are seen in patients with other cardiac conditions (including myocarditis and congestive heart failure), and slight TnI elevations occur in patients with other conditions, including sepsis, renal failure, acidosis, acute neurological disease, and persistent tachyarrhythmia.Opera tor ID - EDASI Lab Interpretation (test Normal code = 38994-0) [facility] [id number] 10:25:00 Test Item Value Reference Range Interpretation Comments TROPONIN I (BEAKER) (test code = 397) < ng/mL 0.00-0.03 Troponin I (TnI) levels must be interpreted in the context of the presenting symptoms and the clinical findings. Elevated TnI levels indicate myocardial damage, but are not specific for ischemic heart disease. Elevated TnI levels are seen in patients with other cardiac conditions (including myocarditis and congestive heart failure), and slight TnI elevations occur in patients with other conditions, including sepsis, renal failure, acidosis, acute neurological disease, and persistent tachyarrhythmia.Loader Magazine Grinder ID - EDASIPT/[id number] 10:17:00 Test Item Value Reference Range Interpretation Comments Protime (test code = 18.1 11.9- 14.2 H 5902-2) seconds INR (test code = 1.54 <=5.90 6301-6) PTT (test code = 31.7 22.5- 36.0 40121-9) seconds JUDI (test code = JUDI) Effective 09/08/2018: PT Reference Range ChangeNew: 11.9-14.2 Previous: 11.7-14.7 RECOMMENDED COUMADIN/WARFARIN INR THERAPY RANGESSTANDARD DOSE: 2.0-3.0 Includes: PROPHYLAXIS for venous thrombosis, systemic embolization; TREATMENT for venous thrombosis and/or pulmonary embolus.HIGH RISK: Target INR is 2.5-3.5 for patients wiht mechanical heart valves. Lab Interpretation Abnormal (test code = 68975-8) [facility] HospitalPT/[id number] 10:17:00 Test Item Value Reference Range Interpretation Comments PROTIME (BEAKER) (test code = 18.1 seconds 11.9-14.2 H 759) INR (BEAKER) (test code = 370) 1.54 <=5.90 PARTIAL THROMBOPLASTIN TIME 31.7 seconds 22.5-36.0 (BEAKER) (test code = 760) Effective 09/08/2018: PT Reference Range ChangeNew: 11.9-14.2 Previous: 11.7- 14.7RECOMMENDED COUMADIN/WARFARIN INR THERAPY RANGESSTANDARD DOSE: 2.0-3.0 Includes: PROPHYLAXIS for venous thrombosis, systemic embolization; TREATMENT for venous thrombosis and/or pulmonary embolus.HIGH RISK: Target INR is2.5-3.5 for patients wiht mechanical heart valves.LACTIC ACID, [id number] 10:05:00 Test Item Value Reference Range Interpretation Comments LACTATE BLOOD VENOUS 3.78 mmol/L 0.50-2.20 H Specime n slightly (2) (BEAKER) (test hemolyzed code = 2872) Loader Magazine Grinder ID - [id number] W/PLT COUNT & AUTO [id number] 10:02:00 Test Item Value Reference Range Interpretation Comments WHITE BLOOD CELL COUNT (BEAKER) 15.6 K/ L 3.5-10.5 H (test code = 775) RED BLOOD CELL COUNT (BEAKER) 4.75 M/ L 4.63-6.08 (test code = 761) HEMOGLOBIN (BEAKER) (test code = 15.1 GM/DL 13.7-17.5 410) HEMATOCRIT (BEAKER) (test code = 45.4 % 40.1-51.0 411) MEAN CORPUSCULAR VOLUME (BEAKER) 95.6 fL 79.0-92.2 H (test code = 753) MEAN CORPUSCULAR HEMOGLOBIN 31.8 pg 25.7-32.2 (BEAKER) (test code = 751) MEAN CORPUSCULAR HEMOGLOBIN CONC 33.3 GM/DL 32.3-36.5 (BEAKER) (test code = 752) RED CELL DISTRIBUTION WIDTH 14.0 % 11.6-14.4 (BEAKER) (test code = 412) PLATELET COUNT (BEAKER) (test 380 K/CU MM 150-450 code = 756) MEAN PLATELET VOLUME (BEAKER) 10.2 fL 9.4-12.4 (test code = 754) NUCLEATED RED BLOOD CELLS 0 /100 WBC 0-0 (BEAKER) (test code = 413) NEUTROPHILS RELATIVE PERCENT 91 % (BEAKER) (test code = 429) LYMPHOCYTES RELATIVE PERCENT 4 % (BEAKER) (test code = 430) MONOCYTES RELATIVE PERCENT 4 % (BEAKER) (test code = 431) EOSINOPHILS RELATIVE PERCENT 0 % (BEAKER) (test code = 432) BASOPHILS RELATIVE PERCENT 0 % (BEAKER) (test code = 437) NEUTROPHILS ABSOLUTE COUNT 14.21 K/ L 1.78-5.38 H (BEAKER) (test code = 670) LYMPHOCYTES ABSOLUTE COUNT 0.56 K/ L 1.32-3.57 L (BEAKER) (test code = 414) MONOCYTES ABSOLUTE COUNT (BEAKER) 0.69 K/ L 0.30-0.82 (test code = 415) EOSINOPHILS ABSOLUTE COUNT 0.03 K/ L 0.04-0.54 L (BEAKER) (test code = 416) BASOPHILS ABSOLUTE COUNT (BEAKER) 0.05 K/ L 0.01-0.08 (test code = 417) IMMATURE GRANULOCYTES-RELATIVE 1 % 0-1 PERCENT (BEAKER) (test code = 2801) POC-Blood gases, [id number] 10:00:00 Test Item Value Reference Range Interpretation Comments Temp. Celsius-POC (test code = 1834) FIO2-POC (test code = 1835) pH, Arterial-POC (test 7.517 7.350-7.450 H code = 1836) PCO2, Arterial-POC 34.1 35.0- 45.0 mm Hg L If pO 2 is >180, (test code = 1837) pCO2 may be positively bias ed PO2, Arterial-POC (test 72.0 80.0- 90.0 mm Hg L code = 1838) SO2, Arterial-POC (test 96.0 % 96-97 code = 1839) HCO3, Arterilal-POC 27.6 meq/L 21-29 (test code = 1840) BE, Arterial-POC (test 5.0 meq/L -2-3 H : SHILA HAWK AT [facility] code = 1841) [address] [place] [address], [address]: Loader Magazine Grinder/Techni martin ID = [id number] for NEFTALI RICHARDS Lab Interpretation Abnormal (test code = 23254-8) [facility]-Calcium [id number] 10:00:00 Test Item Value Reference Range Interpretation Comments POC-Calcium Ionized 1.19 mmol/L 1.12-1.27 : TESTED AT [facility] (test code = 1536) [address] [place] [address], [address]: Loader Magazine Grinder/Techni antione n ID = [id number] or NEFTALI RICHARDS Lab Interpretation (test Normal code = 81871-8) [facility]-[id number] 10:00:00 Test Item Value Reference Range Interpretation Comments POC-Potassium (test code 5.9 meq/L 3.6-5.5 H : T ESTED AT [facility] = 1540) [address] [facility], [address] 30: Loader Magazine Grinder/Techni martin ID = [id number] for NEFTALI RICHARDS Lab Interpretation (test Abnormal code = 44762-9) [facility]-[id number] 10:00:00 Test Item Value Reference Range Interpretation Comments POC-Sodium (test code = 131 meq/L 135-148 L : TE STED AT [facility] 1542) [address] [place] [address], [address]: Loader Magazine Grinder/Techni martin ID = [id number] for NEFTALI RICHARDS Lab Interpretation (test Abnormal code = 38346-5) [facility]-[id number] 10:00:00 Test Item Value Reference Range Interpretation Comments POC-Glucose (test code = 168 mg/dL 70-110 H : T ESTED AT [facility] 1855) [address] [place] [address], [address]: Loader Magazine Grinder/Techni martin ID = [id number] for NEFTALI RICHARDS Lab Interpretation (test Abnormal code = 01709-1) [facility]-[id number] 10:00:00 Test Item Value Reference Range Interpretation Comments POC-Hemoglobin (test code 15.3 g/dL 13-16.8 : TESTED AT [facility] = 1856) [address] [place] [address], [address]: Loader Magazine Grinder/Techni martin ID = [id number] for NEFTALI RICHARDS Lab Interpretation (test Normal code = 52073-2) [facility]-[id number] 10:00:00 Test Item Value Reference Range Interpretation Comments POC-Hematocrit (test code = 45 % 40-50 : 1857) Loader Magazine Grinder/Techni martin ID = [id number] for NEFTALI RICHARDS Lab Interpretation (test Normal code = 25249-5) [facility]-BLOOD GASES, [id number] 10:00:00 Test Item Value Reference Range Interpretation Comments TEMP, CELSIUS-POC (BEAKER) (test code = 1834) FIO2-POC (BEAKER) (test code = 1835) PH, ARTERIAL-POC 7.517 7.350-7.450 H (AKER) (test code = 1836) PCO2, ARTERIAL-POC 34.1 mm Hg 35.0-45.0 L If pO2 is >180, pCO2 may (AKER) (test code be posit ively biased = 1837) PO2, ARTERIAL-POC 72.0 mm Hg 80.0-90.0 L (AKER) (test code = 1838) SO2, ARTERIAL-POC 96.0 % 96.0-97.0 (AKER) (test code = 1839) HCO3, ARTERIAL-POC 27.6 meq/L 21.0-29.0 (AKER) (test code = 1840) BASE EXCESS, 5.0 meq/L -2.0-3.0 H : TESTED AT [facility] 67 ARTERIAL-POC [facility], ([facility]) (test code [address]: = 1841) Loader Magazine Grinder/Techni martin ID = [id number] for NEFTALI RICHARDS [id number] 10:00:00 Test Item Value Reference Range Interpretation Comments POC-SODIUM ([facility]) 131 meq/L 135-148 L : TESTED AT [place] [address] (test code = 1542) [facility], [address]: Loader Magazine Grinder/Techni martin ID = [id number] for NEFTALI RICHARDS [id number] 10:00:00 Test Item Value Reference Range Interpretation Comments POC-POTASSIUM 5.9 meq/L 3.6-5.5 H : TESTED AT [place] [address] ([facility]) (test code [facility], = 1540) [address]: Loader Magazine Grinder/Techni martin ID = [id number] for NEFTALI RICHARDS [id number] 10:00:00 Test Item Value Reference Range Interpretation Comments POC-HEMOGLOBIN 15.3 g/dL 13.0-16.8 : TESTED AT [place] [address] ([facility]) (test code [facility], = 1856) [address]: Loader Magazine Grinder/Techni martin ID = [id number] for NEFTALI RICHARDS [id number] 10:00:00 Test Item Value Reference Range Interpretation Comments POC-HEMATOCRIT 45 % 40-50 : Loader Magazine Grinder/Te chnician ID = ([facility]) (test code = 733281 for NEFTALI RICHARDS 1857) POCT-CALCIUM [id number] 10:00:00 Test Item Value Reference Range Interpretation Comments POC-CALCIUM IONIZED 1.19 mmol/L 1.12-1.27 : TESTED AT [facility] ([facility]) (test code = [address] [place] [address]) [place], [address]: Loader Magazine Grinder/Techni martin ID = [id number] for NEFTALI RICHARDS [id number] 10:00:00 Test Item Value Reference Range Interpretation Comments [facility] 168 mg/dL 70-110 H : TESTE D AT [facility] 67 (test code = 1855) [place], [address]: Loader Magazine Grinder/Techni martin ID = [id number] for NEFTALI RICHARDS POCT-GLUCOSE [id number] 05:43:00 Test Item Value Reference Range Interpretation Comments POC-GLUCOSE METER 109 mg/dL 70-110 : TESTED A T [place] [address] ([facility]) (test code = [place], 1538) [address]: Loader Magazine Grinder/Techni martin ID = [id number] for JARON VINCENT CBC W/PLT COUNT & AUTO [id number] 05:30:00 Test Item Value Reference Range Interpretation Comments WHITE BLOOD CELL COUNT (BEAKER) 20.4 K/ L 3.5-10.5 H (test code = 775) RED BLOOD CELL COUNT (BEAKER) 4.79 M/ L 4.63-6.08 (test code = 761) HEMOGLOBIN (BEAKER) (test code = 15.1 GM/DL 13.7-17.5 410) HEMATOCRIT (BEAKER) (test code = 47.2 % 40.1-51.0 411) MEAN CORPUSCULAR VOLUME (BEAKER) 98.5 fL 79.0-92.2 H (test code = 753) MEAN CORPUSCULAR HEMOGLOBIN 31.5 pg 25.7-32.2 (BEAKER) (test code = 751) MEAN CORPUSCULAR HEMOGLOBIN CONC 32.0 GM/DL 32.3-36.5 L (BEAKER) (test code = 752) RED CELL DISTRIBUTION WIDTH 14.1 % 11.6-14.4 (BEAKER) (test code = 412) PLATELET COUNT (BEAKER) (test 353 K/CU MM 150-450 code = 756) MEAN PLATELET VOLUME (BEAKER) 10.3 fL 9.4-12.4 (test code = 754) NUCLEATED RED BLOOD CELLS 0 /100 WBC 0-0 (BEAKER) (test code = 413) NEUTROPHILS RELATIVE PERCENT 86 % (BEAKER) (test code = 429) LYMPHOCYTES RELATIVE PERCENT 6 % (BEAKER) (test code = 430) MONOCYTES RELATIVE PERCENT 6 % (BEAKER) (test code = 431) EOSINOPHILS RELATIVE PERCENT 1 % (BEAKER) (test code = 432) BASOPHILS RELATIVE PERCENT 0 % (BEAKER) (test code = 437) NEUTROPHILS ABSOLUTE COUNT 17.57 K/ L 1.78-5.38 H (BEAKER) (test code = 670) LYMPHOCYTES ABSOLUTE COUNT 1.18 K/ L 1.32-3.57 L (BEAKER) (test code = 414) MONOCYTES ABSOLUTE COUNT (BEAKER) 1.20 K/ L 0.30-0.82 H (test code = 415) EOSINOPHILS ABSOLUTE COUNT 0.21 K/ L 0.04-0.54 (BEAKER) (test code = 416) BASOPHILS ABSOLUTE COUNT (BEAKER) 0.08 K/ L 0.01-0.08 (test code = 417) IMMATURE GRANULOCYTES-RELATIVE 1 % 0-1 PERCENT (BEAKER) (test code = 2801) POCT-GLUCOSE [id number] 00:26:00 Test Item Value Reference Range Interpretation Comments POC-GLUCOSE METER 157 mg/dL 70-110 H : TESTED A T [facility] 6720 (BEAKER) (test code = [facility], 153) [address]: Loader Magazine Grinder/Techni martin ID = [id number] for JARON VINCENT POCT-GLUCOSE [id number] 17:45:00 Test Item Value Reference Range Interpretation Comments POC-GLUCOSE METER 159 mg/dL 70-110 H : TESTED A T [facility] 6720 (BEAKER) (test code = [facility], 153) [address]: Loader Magazine Grinder/Techni martin ID = [id number] for FARZAD LOZANO, BRAULIOMARTIN BLOOD [id number] 13:00:00 Test Item Value Reference Range Interpretation Comments CULTURE (BEAKER) (test No growth in 5 days code = 1095) CBC W/PLT COUNT & AUTO [id number] 12:28:00 Test Item Value Reference Range Interpretation Comments WHITE BLOOD CELL COUNT (BEAKER) 13.3 K/ L 3.5-10.5 H (test code = 775) RED BLOOD CELL COUNT (BEAKER) 4.23 M/ L 4.63-6.08 L (test code = 761) HEMOGLOBIN (BEAKER) (test code = 13.5 GM/DL 13.7-17.5 L 410) HEMATOCRIT (BEAKER) (test code = 41.1 % 40.1-51.0 411) MEAN CORPUSCULAR VOLUME (BEAKER) 97.2 fL 79.0-92.2 H (test code = 753) MEAN CORPUSCULAR HEMOGLOBIN 31.9 pg 25.7-32.2 (BEAKER) (test code = 751) MEAN CORPUSCULAR HEMOGLOBIN CONC 32.8 GM/DL 32.3-36.5 (BEAKER) (test code = 752) RED CELL DISTRIBUTION WIDTH 14.0 % 11.6-14.4 (BEAKER) (test code = 412) PLATELET COUNT (BEAKER) (test 317 K/CU MM 150-450 code = 756) MEAN PLATELET VOLUME (BEAKER) 10.0 fL 9.4-12.4 (test code = 754) NUCLEATED RED BLOOD CELLS 0 /100 WBC 0-0 (BEAKER) (test code = 413) NEUTROPHILS RELATIVE PERCENT 77 % (BEAKER) (test code = 429) LYMPHOCYTES RELATIVE PERCENT 11 % (BEAKER) (test code = 430) MONOCYTES RELATIVE PERCENT 8 % (BEAKER) (test code = 431) EOSINOPHILS RELATIVE PERCENT 3 % (BEAKER) (test code = 432) BASOPHILS RELATIVE PERCENT 1 % (BEAKER) (test code = 437) NEUTROPHILS ABSOLUTE COUNT 10.22 K/ L 1.78-5.38 H (BEAKER) (test code = 670) LYMPHOCYTES ABSOLUTE COUNT 1.51 K/ L 1.32-3.57 (BEAKER) (test code = 414) MONOCYTES ABSOLUTE COUNT (BEAKER) 1.01 K/ L 0.30-0.82 H (test code = 415) EOSINOPHILS ABSOLUTE COUNT 0.38 K/ L 0.04-0.54 (BEAKER) (test code = 416) BASOPHILS ABSOLUTE COUNT (BEAKER) 0.06 K/ L 0.01-0.08 (test code = 417) IMMATURE GRANULOCYTES-RELATIVE 1 % 0-1 PERCENT (BEAKER) (test code = 2801) CT, BRAIN, WITHOUT [id number] 11:02: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 Follow up on SAHUnlistedReason for Exam - Click Yes and Enter Reason Below->No [facility] 1935 Sex: MFINAL REPORT CT, BRAIN, WITHOUT CONTRAST INDICATION: Altered mental status TECHNIQUE: Noncontrast axial imaging was obtained from the vertex to the skull base. Axial images were reconstructed using a bone algorithm. DOSE REDUCTION: Dose modulation, iterative reconstruction, and/or weight-based adjustment of the mA/kV was utilized to reduce the radiation dose to as lowas reasonably achievable. COMPARISON: CT 02/13/2020 FINDINGS: Intracranial: Previously noted multifocal subarachnoid hemorrhage and layering intraventricular hemorrhage is slightly decreased in extent. Focus of hemorrhage along the midline ventral leighann is slightly more prominent on the current exam. Nohydrocephalus. No evidence of acute territorial infarct. No mass effect. Generalized cerebral atrophy with ex vacuo dilatation of the ventricular system proportionate to sulci. Scattered foci of hypoattenuation within the periventricular and subcortical white matter are a nonspecific finding commonly attributed to chronic small vessel ischemic disease. Osseous structures: No fracture. No suspicious lesion. Paranasal sinuses and mastoid air cells: No evidence of sinusitis. Mastoids are clear. Orbital contents: Globes are intact. IMPRESSION: Overall decreasing extent of intraventricular and subarachnoid hemorrhage. Focus of hemorrhage along the ventral leighann is more conspicuous on the current exam. Signed: Adele Guadalupe Verified Date/Time: 02/26/2020 11:02:56 COMPREHENSIVE METABOLIC [id number] 10:35:00 Test Item Value Reference Range Interpretation Comments TOTAL PROTEIN 6.3 gm/dL 6.0-8.3 (BEAKER) (test code = 770) ALBUMIN (BEAKER) 3.1 g/dL 3.5-5.0 L (test code = 1145) ALKALINE PHOSPHATASE 84 U/L 40-150 (BEAKER) (test code = 346) BILIRUBIN TOTAL 0.3 mg/dL 0.2-1.2 (BEAKER) (test code = 377) SODIUM (BEAKER) (test 135 meq/L 136-145 L code = 381) POTASSIUM (BEAKER) 4.7 meq/L 3.5-5.1 (test code = 379) CHLORIDE (BEAKER) 97 meq/L 98-107 L (test code = 382) CO2 (BEAKER) (test 28 meq/L 22-29 code = 355) BLOOD UREA NITROGEN 27 mg/dL 7-21 H (BEAKER) (test code = 354) CREATININE (BEAKER) 0.82 mg/dL 0.57-1.25 (test code = 358) GLUCOSE RANDOM 163 mg/dL 70-105 H (BEAKER) (test code = 652) CALCIUM (BEAKER) 8.7 mg/dL 8.4-10.2 (test code = 697) AST (SGOT) (BEAKER) 44 U/L 5-34 H (test code = 353) ALT (SGPT) (BEAKER) 85 U/L 6-55 H (test code = 347) EGFR (BEAKER) (test 90 mL/min/1.73 ESTIMA HAWK GFR IS code = 1092) sq m NOT ACCURATE CREATININE CLEARANCE IN PREDICTING GLOMERULAR FILTRATION RATE . ESTIMATED GFR I S NOT APPLICABLE FOR DIALYSIS PATIEN TS. Loader Magazine Grinder ID - EDASIPOCT-GLUCOSE [id number] 07:00:00 Test Item Value Reference Range Interpretation Comments POC-GLUCOSE METER 131 mg/dL 70-110 H : TESTED A T [facility] 6720 (BEAKER) (test code = [facility], 1538) [address]: Loader Magazine Grinder/Techni martin ID = [id number] for JARON VINCENT POCT-GLUCOSE [id number] 00:35:00 Test Item Value Reference Range Interpretation Comments POC-GLUCOSE METER 106 mg/dL 70-110 : TESTED A T [facility] 6720 (BEAKER) (test code = [facility], 1538) [address]: Loader Magazine Grinder/Techni martin ID = [id number] for JARON VINCENT POCT-GLUCOSE [id number] 12:49:00 Test Item Value Reference Range Interpretation Comments POC-GLUCOSE METER 173 mg/dL 70-110 H : TESTED A T [facility] 6720 (BEAKER) (test code = [facility], 1538) [address]: Loader Magazine Grinder/Techni martin ID = [id number] for [place] COMPREHENSIVE METABOLIC [id number] 06:04:00 Test Item Value Reference Range Interpretation Comments TOTAL PROTEIN 6.3 gm/dL 6.0-8.3 (BEAKER) (test code = 770) ALBUMIN (BEAKER) 3.2 g/dL 3.5-5.0 L (test code = 1145) ALKALINE PHOSPHATASE 76 U/L 40-150 (BEAKER) (test code = 346) BILIRUBIN TOTAL 0.3 mg/dL 0.2-1.2 (BEAKER) (test code = 377) SODIUM (BEAKER) (test 136 meq/L 136-145 code = 381) POTASSIUM (BEAKER) 4.8 meq/L 3.5-5.1 (test code = 379) CHLORIDE (BEAKER) 98 meq/L 98-107 (test code = 382) CO2 (BEAKER) (test 28 meq/L 22-29 code = 355) BLOOD UREA NITROGEN 28 mg/dL 7-21 H (BEAKER) (test code = 354) CREATININE (BEAKER) 0.77 mg/dL 0.57-1.25 (test code = 358) GLUCOSE RANDOM 125 mg/dL 70-105 H (BEAKER) (test code = 652) CALCIUM (BEAKER) 9.0 mg/dL 8.4-10.2 (test code = 697) AST (SGOT) (BEAKER) 30 U/L 5-34 (test code = 353) ALT (SGPT) (BEAKER) 57 U/L 6-55 H (test code = 347) EGFR (BEAKER) (test 96 mL/min/1.73 ESTIMA HAWK GFR IS code = 1092) sq m NOT ACCURATE CREATININE CLEARANCE IN PREDICTING GLOMERULAR FILTRATION RATE . ESTIMATED GFR I S NOT APPLICABLE FOR DIALYSIS PATIEN TS. Loader Magazine Grinder ID - ADMINPOCT-GLUCOSE [id number] 05:42:00 Test Item Value Reference Range Interpretation Comments POC-GLUCOSE METER 150 mg/dL 70-110 H : Notified RN/MD: (BEAKER) (test code = TESTED AT [facility] 2915 5195) [place], [address]: Loader Magazine Grinder/Techni martin ID = [id number] for ULCY MISTRY CBC W/PLT COUNT & AUTO [id number] 05:35:00 Test Item Value Reference Range Interpretation Comments WHITE BLOOD CELL COUNT (BEAKER) 10.6 K/ L 3.5-10.5 H (test code = 775) RED BLOOD CELL COUNT (BEAKER) 4.10 M/ L 4.63-6.08 L (test code = 761) HEMOGLOBIN (BEAKER) (test code = 13.0 GM/DL 13.7-17.5 L 410) HEMATOCRIT (BEAKER) (test code = 40.3 % 40.1-51.0 411) MEAN CORPUSCULAR VOLUME (BEAKER) 98.3 fL 79.0-92.2 H (test code = 753) MEAN CORPUSCULAR HEMOGLOBIN 31.7 pg 25.7-32.2 (BEAKER) (test code = 751) MEAN CORPUSCULAR HEMOGLOBIN CONC 32.3 GM/DL 32.3-36.5 (BEAKER) (test code = 752) RED CELL DISTRIBUTION WIDTH 13.7 % 11.6-14.4 (BEAKER) (test code = 412) PLATELET COUNT (BEAKER) (test 308 K/CU MM 150-450 code = 756) MEAN PLATELET VOLUME (BEAKER) 10.9 fL 9.4-12.4 (test code = 754) NUCLEATED RED BLOOD CELLS 0 /100 WBC 0-0 (BEAKER) (test code = 413) NEUTROPHILS RELATIVE PERCENT 74 % (BEAKER) (test code = 429) LYMPHOCYTES RELATIVE PERCENT 15 % (BEAKER) (test code = 430) MONOCYTES RELATIVE PERCENT 7 % (BEAKER) (test code = 431) EOSINOPHILS RELATIVE PERCENT 3 % (BEAKER) (test code = 432) BASOPHILS RELATIVE PERCENT 1 % (BEAKER) (test code = 437) NEUTROPHILS ABSOLUTE COUNT 7.82 K/ L 1.78-5.38 H (BEAKER) (test code = 670) LYMPHOCYTES ABSOLUTE COUNT 1.54 K/ L 1.32-3.57 (BEAKER) (test code = 414) MONOCYTES ABSOLUTE COUNT (BEAKER) 0.78 K/ L 0.30-0.82 (test code = 415) EOSINOPHILS ABSOLUTE COUNT 0.29 K/ L 0.04-0.54 (BEAKER) (test code = 416) BASOPHILS ABSOLUTE COUNT (BEAKER) 0.06 K/ L 0.01-0.08 (test code = 417) IMMATURE GRANULOCYTES-RELATIVE 1 % 0-1 PERCENT (BEAKER) (test code = 2801) POCT-GLUCOSE [id number] 23:39:00 Test Item Value Reference Range Interpretation Comments POC-GLUCOSE METER 122 mg/dL 70-110 H : TESTED A T [facility] 6720 (BEAKER) (test code = [facility], 153) [address]: Loader Magazine Grinder/Techni martin ID = [id number] for DO VE, CHEKARA POCT-GLUCOSE [id number] 17:34:00 Test Item Value Reference Range Interpretation Comments POC-GLUCOSE METER 135 mg/dL 70-110 H : TESTED A T [facility] 6720 (BEAKER) (test code [facility], = 1538) [address]: Loader Magazine Grinder/Techni martin ID = [id number] for TSEG GAI, TSIGHEREDA POCT-GLUCOSE [id number] 12:49:00 Test Item Value Reference Range Interpretation Comments POC-GLUCOSE METER 113 mg/dL 70-110 H : TESTED A T [facility] 6720 (BEAKER) (test code [facility], = 1538) [address]: Loader Magazine Grinder/Techni martin ID = [id number] for TSEG GAI, TSIGHEREDA COMPREHENSIVE METABOLIC [id number] 10:46:00 Test Item Value Reference Range Interpretation Comments TOTAL PROTEIN 6.1 gm/dL 6.0-8.3 (BEAKER) (test code = 770) ALBUMIN (BEAKER) 3.0 g/dL 3.5-5.0 L (test code = 1145) ALKALINE PHOSPHATASE 71 U/L 40-150 (BEAKER) (test code = 346) BILIRUBIN TOTAL 0.3 mg/dL 0.2-1.2 (BEAKER) (test code = 377) SODIUM (BEAKER) (test 136 meq/L 136-145 code = 381) POTASSIUM (BEAKER) 4.7 meq/L 3.5-5.1 (test code = 379) CHLORIDE (BEAKER) 99 meq/L 98-107 (test code = 382) CO2 (BEAKER) (test 28 meq/L 22-29 code = 355) BLOOD UREA NITROGEN 25 mg/dL 7-21 H (BEAKER) (test code = 354) CREATININE (BEAKER) 0.76 mg/dL 0.57-1.25 (test code = 358) GLUCOSE RANDOM 153 mg/dL 70-105 H (BEAKER) (test code = 652) CALCIUM (BEAKER) 9.1 mg/dL 8.4-10.2 (test code = 697) AST (SGOT) (BEAKER) 27 U/L 5-34 (test code = 353) ALT (SGPT) (BEAKER) 51 U/L 6-55 (test code = 347) EGFR (BEAKER) (test 98 mL/min/1.73 ESTIMA HAWK GFR IS code = 1092) sq m NOT ACCURATE CREATININE CLEARANCE IN PREDICTING GLOMERULAR FILTRATION RATE . ESTIMATED GFR I S NOT APPLICABLE FOR DIALYSIS PATIEN TS. [employer] Grinder ID - APR CCBC W/PLT COUNT & AUTO [id number] 07:12:00 Test Item Value Reference Range Interpretation Comments WHITE BLOOD CELL COUNT (BEAKER) 10.8 K/ L 3.5-10.5 H (test code = 775) RED BLOOD CELL COUNT (BEAKER) 3.93 M/ L 4.63-6.08 L (test code = 761) HEMOGLOBIN (BEAKER) (test code = 12.5 GM/DL 13.7-17.5 L 410) HEMATOCRIT (BEAKER) (test code = 38.2 % 40.1-51.0 L 411) MEAN CORPUSCULAR VOLUME (BEAKER) 97.2 fL 79.0-92.2 H (test code = 753) MEAN CORPUSCULAR HEMOGLOBIN 31.8 pg 25.7-32.2 (BEAKER) (test code = 751) MEAN CORPUSCULAR HEMOGLOBIN CONC 32.7 GM/DL 32.3-36.5 (BEAKER) (test code = 752) RED CELL DISTRIBUTION WIDTH 13.7 % 11.6-14.4 (BEAKER) (test code = 412) PLATELET COUNT (BEAKER) (test 296 K/CU MM 150-450 code = 756) MEAN PLATELET VOLUME (BEAKER) 10.6 fL 9.4-12.4 (test code = 754) NUCLEATED RED BLOOD CELLS 0 /100 WBC 0-0 (BEAKER) (test code = 413) NEUTROPHILS RELATIVE PERCENT 79 % (BEAKER) (test code = 429) LYMPHOCYTES RELATIVE PERCENT 12 % (BEAKER) (test code = 430) MONOCYTES RELATIVE PERCENT 6 % (BEAKER) (test code = 431) EOSINOPHILS RELATIVE PERCENT 3 % (BEAKER) (test code = 432) BASOPHILS RELATIVE PERCENT 0 % (BEAKER) (test code = 437) NEUTROPHILS ABSOLUTE COUNT 8.51 K/ L 1.78-5.38 H (BEAKER) (test code = 670) LYMPHOCYTES ABSOLUTE COUNT 1.25 K/ L 1.32-3.57 L (BEAKER) (test code = 414) MONOCYTES ABSOLUTE COUNT (BEAKER) 0.63 K/ L 0.30-0.82 (test code = 415) EOSINOPHILS ABSOLUTE COUNT 0.28 K/ L 0.04-0.54 (BEAKER) (test code = 416) BASOPHILS ABSOLUTE COUNT (BEAKER) 0.03 K/ L 0.01-0.08 (test code = 417) IMMATURE GRANULOCYTES-RELATIVE 1 % 0-1 PERCENT (BEAKER) (test code = 2801) POCT-GLUCOSE [id number] 06:04:00 Test Item Value Reference Range Interpretation Comments POC-GLUCOSE METER 145 mg/dL 70-110 H : TESTED A T [facility] [address] (BEAKER) (test code = [place], 1538) [id number]: Load[employer] Grinder/Techni martin ID = [id number] for GUS HANSEN POCT-GLUCOSE [id number] 00:16:00 Test Item Value Reference Range Interpretation Comments POC-GLUCOSE METER 148 mg/dL 70-110 H : TESTED A T [facility] [address] (BEAKER) (test code = [facility] [employer] [facility] [place], [address]) [address]: Loader Magazine Grinder/Techni martin ID = [id number] for GUS HANSEN POCT-GLUCOSE [id number] 18:13:00 Test Item Value Reference Range Interpretation Comments POC-GLUCOSE METER 204 mg/dL 70-110 H : TESTED A T [facility] [address] (BEAKER) (test code = [place], [address]38) [address]: Loader Magazine Grinder/Techni martin ID = [id number] for QUIN GREEN COMPREHENSIVE METABOLIC [id number] 06:28:00 Test Item Value Reference Range Interpretation Comments TOTAL PROTEIN 6.0 gm/dL 6.0-8.3 (BEAKER) (test code = 770) ALBUMIN (BEAKER) 2.9 g/dL 3.5-5.0 L (test code = 1145) ALKALINE PHOSPHATASE 69 U/L 40-150 (BEAKER) (test code = 346) BILIRUBIN TOTAL 0.3 mg/dL 0.2-1.2 (BEAKER) (test code = 377) SODIUM (BEAKER) (test 136 meq/L 136-145 code = 381) POTASSIUM (BEAKER) 4.9 meq/L 3.5-5.1 (test code = 379) CHLORIDE (BEAKER) 99 meq/L 98-107 (test code = 382) CO2 (BEAKER) (test 29 meq/L 22-29 code = 355) BLOOD UREA NITROGEN 25 mg/dL 7-21 H (BEAKER) (test code = 354) CREATININE (BEAKER) 0.70 mg/dL 0.57-1.25 (test code = 358) GLUCOSE RANDOM 102 mg/dL 70-105 (BEAKER) (test code = 652) CALCIUM (BEAKER) 8.8 mg/dL 8.4-10.2 (test code = 697) AST (SGOT) (BEAKER) 23 U/L 5-34 (test code = 353) ALT (SGPT) (BEAKER) 42 U/L 6-55 (test code = 347) EGFR (BEAKER) (test 108 ESTIMATE D GFR IS code = 1092) mL/min/1.73 sq NOT ACCURA TE m CREATININE CLEARANCE IN PREDICTING GLOMERULAR FILTRATION RATE . ESTIMATED GFR I S NOT APPLICABLE FOR DIALYSIS PATIEN TS. Loader Magazine Grinder ID - SUKHDEV MCBC W/PLT COUNT & AUTO [id number] 06:15:00 Test Item Value Reference Range Interpretation Comments WHITE BLOOD CELL COUNT (BEAKER) 13.7 K/ L 3.5-10.5 H (test code = 775) RED BLOOD CELL COUNT (BEAKER) 3.73 M/ L 4.63-6.08 L (test code = 761) HEMOGLOBIN (BEAKER) (test code = 11.9 GM/DL 13.7-17.5 L 410) HEMATOCRIT (BEAKER) (test code = 36.1 % 40.1-51.0 L 411) MEAN CORPUSCULAR VOLUME (BEAKER) 96.8 fL 79.0-92.2 H (test code = 753) MEAN CORPUSCULAR HEMOGLOBIN 31.9 pg 25.7-32.2 (BEAKER) (test code = 751) MEAN CORPUSCULAR HEMOGLOBIN CONC 33.0 GM/DL 32.3-36.5 (BEAKER) (test code = 752) RED CELL DISTRIBUTION WIDTH 13.9 % 11.6-14.4 (BEAKER) (test code = 412) PLATELET COUNT (BEAKER) (test 292 K/CU MM 150-450 code = 756) MEAN PLATELET VOLUME (BEAKER) 10.7 fL 9.4-12.4 (test code = 754) NUCLEATED RED BLOOD CELLS 0 /100 WBC 0-0 (BEAKER) (test code = 413) NEUTROPHILS RELATIVE PERCENT 81 % (BEAKER) (test code = 429) LYMPHOCYTES RELATIVE PERCENT 10 % (BEAKER) (test code = 430) MONOCYTES RELATIVE PERCENT 6 % (BEAKER) (test code = 431) EOSINOPHILS RELATIVE PERCENT 2 % (BEAKER) (test code = 432) BASOPHILS RELATIVE PERCENT 0 % (BEAKER) (test code = 437) NEUTROPHILS ABSOLUTE COUNT 11.15 K/ L 1.78-5.38 H (BEAKER) (test code = 670) LYMPHOCYTES ABSOLUTE COUNT 1.37 K/ L 1.32-3.57 (BEAKER) (test code = 414) MONOCYTES ABSOLUTE COUNT (BEAKER) 0.78 K/ L 0.30-0.82 (test code = 415) EOSINOPHILS ABSOLUTE COUNT 0.23 K/ L 0.04-0.54 ([facility]) (test code = 416) BASOPHILS ABSOLUTE COUNT ([facility]) 0.03 K/ L 0.01-0.08 (test code = 417) IMMATURE GRANULOCYTES-RELATIVE 1 % 0-1 PERCENT ([facility]) (test code = 2801) POCT-GLUCOSE [id number] 23:40:00 Test Item Value Reference Range Interpretation Comments POC-GLUCOSE METER 131 mg/dL 70-110 H : Notified RN/MD: ([facility]) (test code = TESTED AT [facility] 6720 1538) [facility], [address]: Loader Magazine Grinder/Techni martin ID = [id number] for LUCY MISTRY Vancomycin level, [id number] 22:49:00 Test Item Value Reference Range Interpretation Comments Vancomycin Tr (test code = 5.5 ug/mL 10-20 L 4092-3) JUDI (test code = JUDI) Loader Magazine Grinder ID - BS Lab Interpretation (test Abnormal code = 26204-3) [facility] [id number] 22:49:00 Test Item Value Reference Range Interpretation Comments VANCOMYCIN TROUGH ([facility]) (test 5.5 ug/mL 10.0-20.0 L code = 522) Loader Magazine Grinder ID - BSPOCT-GLUCOSE [id number] 18:50:00 Test Item Value Reference Range Interpretation Comments POC-GLUCOSE METER 106 mg/dL 70-110 : TESTED A T [facility] 6720 ([facility]) (test code = [facility], 1538) [address]: Loader Magazine Grinder/Techni martin ID = [id number] for MOSES GAINESMELBA QUIN [id number] 12:45:00 Test Item Value Reference Range Interpretation Comments PTT (test code = 10947-6) 70.0 22.5- 36.0 seconds H Lab Interpretation (test code = Abnormal 24832-2) [facility] 12:45:00 Test Item Value Reference Range Interpretation Comments PARTIAL THROMBOPLASTIN TIME 70.0 seconds 22.5-36.0 H ([facility]) (test code = 760) POCT-GLUCOSE [id number] 11:54:00 Test Item Value Reference Range Interpretation Comments POC-GLUCOSE METER 110 mg/dL 70-110 : TESTED A T [facility] 6720 (BEAKER) (test code = [place], 1538) [address]: Loader Magazine Grinder/Techni martin ID = [id number] for QUIN GREEN CBC W/PLT COUNT & AUTO [id number] 09:00:00 Test Item Value Reference Range Interpretation Comments WHITE BLOOD CELL COUNT (BEAKER) 23.5 K/ L 3.5-10.5 H (test code = 775) RED BLOOD CELL COUNT (BEAKER) 3.56 M/ L 4.63-6.08 L (test code = 761) HEMOGLOBIN (BEAKER) (test code = 11.4 GM/DL 13.7-17.5 L 410) HEMATOCRIT (BEAKER) (test code = 34.7 % 40.1-51.0 L 411) MEAN CORPUSCULAR VOLUME (BEAKER) 97.5 fL 79.0-92.2 H (test code = 753) MEAN CORPUSCULAR HEMOGLOBIN 32.0 pg 25.7-32.2 (BEAKER) (test code = 751) MEAN CORPUSCULAR HEMOGLOBIN CONC 32.9 GM/DL 32.3-36.5 (BEAKER) (test code = 752) RED CELL DISTRIBUTION WIDTH 13.8 % 11.6-14.4 (BEAKER) (test code = 412) PLATELET COUNT (BEAKER) (test 288 K/CU MM 150-450 code = 756) MEAN PLATELET VOLUME (BEAKER) 10.6 fL 9.4-12.4 (test code = 754) NUCLEATED RED BLOOD CELLS 0 /100 WBC 0-0 (BEAKER) (test code = 413) (CELLAVISION MANUAL DIFF)2020-02-22 09:00:00 Test Item Value Reference Range Interpretation Comments NEUTROPHILS - REL 93 % (CELLAVISION)(BEAKER) (test code = 2816) LYMPHOCYTES - REL 4 % (CELLAVISION)(BEAKER) (test code = 2817) MONOCYTES - REL 2 % (CELLAVISION)(BEAKER) (test code = 2818) BASOPHILS - REL 1 % (CELLAVISION)(BEAKER) (test code = 2820) NEUTROPHILS - ABS 21.86 K/ul 1.78-5.38 H (CELLAVISION)(BEAKER) (test code = 2830) LYMPHOCYTES - ABS 0.94 K/ul 1.32-3.57 L (CELLAVISION)(BEAKER) (test code = 2831) MONOCYTES - ABS 0.47 K/uL 0.30-0.82 (CELLAVISION)(BEAKER) (test code = 2832) BASOPHILS - ABS 0.24 K/uL 0.01-0.08 H (CELLAVISION)(BEAKER) (test code = 2835) TOTAL COUNTED (BEAKER) (test code 100 = 1351) WBC MORPHOLOGY (BEAKER) (test code Normal = 487) LARGE PLT(BEAKER) (test code = Present 2156) BASOPHILIC STIPPLING (BEAKER) Present (test code = 473) ARTIFACT (CELLAVISION)(BEAKER) Present (test code = 3432) PLATELET CONCENTRATION Adequate (CELLAVISION)(BEAKER) (test code = 3438) Loader Magazine Grinder ID - Mackenzie Taylor comments: Slide comments:POCT-GLUCOSE METER 2020-02-22 06:08:00 Test Item Value Reference Range Interpretation Comments POC-GLUCOSE METER 110 mg/dL 70-110 : TESTED A T [facility] 6720 (BEAKER) (test code = [place] [facility], 1538) [address]: Loader Magazine Grinder/Techni martin ID = [id number] for LUCY MISTRY COMPREHENSIVE METABOLIC [id number] 05:09:00 Test Item Value Reference Range Interpretation Comments TOTAL PROTEIN 5.4 gm/dL 6.0-8.3 L (BEAKER) (test code = 770) ALBUMIN (BEAKER) 2.7 g/dL 3.5-5.0 L (test code = 1145) ALKALINE PHOSPHATASE 71 U/L 40-150 (BEAKER) (test code = 346) BILIRUBIN TOTAL 0.4 mg/dL 0.2-1.2 (BEAKER) (test code = 377) SODIUM (BEAKER) (test 137 meq/L 136-145 code = 381) POTASSIUM (BEAKER) 4.1 meq/L 3.5-5.1 (test code = 379) CHLORIDE (BEAKER) 105 meq/L 98-107 (test code = 382) CO2 (BEAKER) (test 25 meq/L 22-29 code = 355) BLOOD UREA NITROGEN 33 mg/dL 7-21 H (BEAKER) (test code = 354) CREATININE (BEAKER) 0.73 mg/dL 0.57-1.25 (test code = 358) GLUCOSE RANDOM 120 mg/dL 70-105 H (BEAKER) (test code = 652) CALCIUM (BEAKER) 8.5 mg/dL 8.4-10.2 (test code = 697) AST (SGOT) (BEAKER) 15 U/L 5-34 (test code = 353) ALT (SGPT) (BEAKER) 34 U/L 6-55 (test code = 347) EGFR (BEAKER) (test 103 ESTIMATE D GFR IS code = 1092) mL/min/1.73 sq NOT ACCURA TE m CREATININE CLEARANCE IN PREDICTING GLOMERULAR FILTRATION RATE . ESTIMATED GFR I S NOT APPLICABLE FOR DIALYSIS PATIEN TS. Loader Magazine Grinder ID - [id number] 04:45:00 Test Item Value Reference Range Interpretation Comments PARTIAL THROMBOPLASTIN TIME 94.2 seconds 22.5-36.0 H (BEAKER) (test code = 760) POCT-GLUCOSE [id number] 00:44:00 Test Item Value Reference Range Interpretation Comments POC-GLUCOSE METER 120 mg/dL 70-110 H : TESTED A T [facility] 6720 ([facility]) (test code = [place], 1538) [address]: Loader Magazine Grinder/Techni martin ID = [id number] for LUCY MISTRY SARS-COV2/RT-PCR ([facility])2020-02-21 19:16:00 Test Item Value Reference Range Interpretation Comments SARS-COV2/RT-PCR (test Negative Not Detected, Negative, code = 0014053) See external report for linked test SARS-COV-2 PERFORMING LAB [facility] GAUDENCIO (test code = 6827585) Negative result for this test determines that SARS-CoV-2 RNA was not present in the specimen above the Limit of Detection (LOD). However, Negative results do not preclude SARS-CoV-2 infection and should not be used as the sole basis for treatment or patient management decisions. Negative results mustbe combined with clinical observations, patient history, and epidemiological information. A false negative result may occur if a specimen is improperly collected, transported or handled. A false negative result should be considered if patient's recent exposures or clinical presentation indicate that COVID-19 (SARS-CoV-2) is likely and diagnostic tests for other causes of illness are negative. Re-testing should be considered in cases of suspected false negatives.The limit of detection for this assay is 800 copies/mL.This SARS CoV-2 test is a real-time RT-PCR test intended for the qualitative detection of nucleic acid from SARS-CoV-2 in a nasopharyngeal swab specimen collected from individuals suspected of COVID-19 by their healthcare provider.This test has not been Food and Drug [...] is revoked under Section 564(g) of the Act.Fact Sheet for Healthcare Providers:https://www.[employer]/sites/default/files/product/documents/Fact_Shee z_EA_Zkvieipki_Rkin_JVRR-CsO-8.pdfFact Sheet for Healthcare Patients:https://www.[employer]/sites/default/files/product/ documents/Pbro_Uupwg_Evlmmybc_Qrpz_KHHP-WmS-9.pdfPerforming Laboratory:[facility], [place] [address]LAVY-SQMZIFD METER 2020-02-21 18:59:00 Test Item Value Reference Range Interpretation Comments POC-GLUCOSE METER 129 mg/dL 70-110 H : TESTED A T [facility] 6720 (BEAKER) (test code = [place] [facility], 1538) [address]: Loader Magazine Grinder/Techni martin ID = [id number] for RAFAEL QUARLES [id number] 17:10:00 Test Item Value Reference Range Interpretation Comments PARTIAL THROMBOPLASTIN TIME 85.0 seconds 22.5-36.0 H (BEAKER) (test code = 760) URINALYSIS W/ REFLEX URINE [id number] 13:38:00 Test Item Value Reference Range Interpretation Comments COLOR (BEAKER) (test code = 470) Yellow CLARITY (BEAKER) (test code = 469) Hazy SPECIFIC GRAVITY UA (BEAKER) (test 1.028 1.001-1.035 code = 468) PH UA (BEAKER) (test code = 467) 5.0 5.0-8.0 PROTEIN UA (BEAKER) (test code = 30 mg/dL Negative A 464) GLUCOSE UA (BEAKER) (test code = Negative Negative 365) KETONES UA (BEAKER) (test code = Negative Negative 371) BILIRUBIN UA (BEAKER) (test code = Negative Negative 462) BLOOD UA (BEAKER) (test code = 461) Negative Negative NITRITE UA (BEAKER) (test code = Negative Negative 465) LEUKOCYTE ESTERASE UA (BEAKER) Negative Negative (test code = 466) UROBILINOGEN UA (BEAKER) (test code 0.2 mg/dL 0.2-1.0 = 463) RBC UA (BEAKER) (test code = 519) 7 /HPF WBC UA (BEAKER) (test code = 520) 2 /HPF BACTERIA (BEAKER) (test code = 517) Few MUCUS (BEAKER) (test code = 1574) Many HYALINE CASTS (BEAKER) (test code = 6 /LPF 514) CRYSTALS, URINE (BEAKER) (test code Rare = 1521) SOURCE(BEAKER) (test code = 2795) Loader Magazine Grinder ID - [auto]Loader Magazine Grinder ID - techCBC W/PLT COUNT & AUTO DIFFERENTIAL 2020-02-21 11:42:00 Test Item Value Reference Range Interpretation Comments WHITE BLOOD CELL COUNT (BEAKER) 32.6 K/ L 3.5-10.5 H (test code = 775) RED BLOOD CELL COUNT (BEAKER) 4.37 M/ L 4.63-6.08 L (test code = 761) HEMOGLOBIN (BEAKER) (test code = 13.9 GM/DL 13.7-17.5 410) HEMATOCRIT (BEAKER) (test code = 42.3 % 40.1-51.0 411) MEAN CORPUSCULAR VOLUME (BEAKER) 96.8 fL 79.0-92.2 H (test code = 753) MEAN CORPUSCULAR HEMOGLOBIN 31.8 pg 25.7-32.2 (BEAKER) (test code = 751) MEAN CORPUSCULAR HEMOGLOBIN CONC 32.9 GM/DL 32.3-36.5 (BEAKER) (test code = 752) RED CELL DISTRIBUTION WIDTH 13.7 % 11.6-14.4 (BEAKER) (test code = 412) PLATELET COUNT (BEAKER) (test 340 K/CU MM 150-450 code = 756) MEAN PLATELET VOLUME (BEAKER) 10.6 fL 9.4-12.4 (test code = 754) NUCLEATED RED BLOOD CELLS 0 /100 WBC 0-0 (BEAKER) (test code = 413) (CELLAVISION MANUAL DIFF)2020-02-21 11:42:00 Test Item Value Reference Range Interpretation Comments NEUTROPHILS - REL 90 % (CELLAVISION)(BEAKER) (test code = 2816) LYMPHOCYTES - REL 4 % (CELLAVISION)(BEAKER) (test code = 2817) MONOCYTES - REL 2 % (CELLAVISION)(BEAKER) (test code = 2818) EOSINOPHILS - REL 1 % (CELLAVISION)(BEAKER) (test code = 2819) BANDS - REL (CELLAVISION)(BEAKER) 3 % 0-10 (test code = 2826) NEUTROPHILS - ABS 29.34 K/ul 1.78-5.38 H (CELLAVISION)(BEAKER) (test code = 2830) LYMPHOCYTES - ABS 1.30 K/ul 1.32-3.57 L (CELLAVISION)(BEAKER) (test code = 2831) MONOCYTES - ABS 0.65 K/uL 0.30-0.82 (CELLAVISION)(BEAKER) (test code = 2832) EOSINOPHILS - ABS 0.33 K/uL 0.04-0.54 (CELLAVISION)(BEAKER) (test code = 2834) BANDS - ABS (CELLAVISION)(BEAKER) 0.98 K/uL 0.00-0.80 H (test code = 2840) TOTAL COUNTED (BEAKER) (test code 100 = 1351) RBC MORPHOLOGY (BEAKER) (test code Normal = 762) WBC MORPHOLOGY (BEAKER) (test code Normal = 487) GIANT PLATELETS (BEAKER) (test Present code = 313) PLATELET CONCENTRATION Adequate (CELLAVISION)(BEAKER) (test code = 3438) Loader Magazine Grinder ID - Mey Linares comments: Slide comments:[id number] 11:02:00 Test Item Value Reference Range Interpretation Comments PARTIAL THROMBOPLASTIN TIME 73.3 seconds 22.5-36.0 H (BEAKER) (test code = 760) LACTIC ACID, [id number] 11:00:00 Test Item Value Reference Range Interpretation Comments LACTATE BLOOD VENOUS (2) (BEAKER) 1.01 mmol/L 0.50-2.20 (test code = 2872) Loader Magazine Grinder ID - MACKENZIE BURGESS, CHEST, 1 VIEW, NON [id number] 10:52:00Reason for exam:->leukocytosisShould this be performed at the bedside?->Yes [facility] 1935 Sex: MFINAL REPORT INDICATION: leukocytosis COMPARISON: February 14, 2020 T ECHNIQUE: Single frontal view of the chest. FINDINGS: Lungs and pleura: Diffuse bilateral interstitial thickening, unchanged. No effusion.Heart and mediastinum: Normal heart size. Unremarkable mediastinal contours.Osseous structures: No acute abnormality.Other: ET tube, NG tube and right-sided centralcatheter have been removed. Signed: Rand Graham MDReport Verified Date/Time: 02/21/2020 10:52:11 Reading Location: [facility] Radiology Reading Room COMPREHENSIVE METABOLIC [id number] 07:12:00 Test Item Value Reference Range Interpretation Comments TOTAL PROTEIN 6.2 gm/dL 6.0-8.3 (BEAKER) (test code = 770) ALBUMIN (BEAKER) 3.1 g/dL 3.5-5.0 L (test code = 1145) ALKALINE PHOSPHATASE 85 U/L 40-150 (BEAKER) (test code = 346) BILIRUBIN TOTAL 0.9 mg/dL 0.2-1.2 (BEAKER) (test code = 377) SODIUM (BEAKER) (test 136 meq/L 136-145 code = 381) POTASSIUM (BEAKER) 4.5 meq/L 3.5-5.1 (test code = 379) CHLORIDE (BEAKER) 101 meq/L 98-107 (test code = 382) CO2 (BEAKER) (test 25 meq/L 22-29 code = 355) BLOOD UREA NITROGEN 30 mg/dL 7-21 H (BEAKER) (test code = 354) CREATININE (BEAKER) 0.82 mg/dL 0.57-1.25 (test code = 358) GLUCOSE RANDOM 137 mg/dL 70-105 H (BEAKER) (test code = 652) CALCIUM (BEAKER) 9.0 mg/dL 8.4-10.2 (test code = 697) AST (SGOT) (BEAKER) 14 U/L 5-34 (test code = 353) ALT (SGPT) (BEAKER) 52 U/L 6-55 (test code = 347) EGFR (BEAKER) (test 90 mL/min/1.73 ESTIMA HAWK GFR IS code = 1092) sq m NOT ACCURATE CREATININE CLEARANCE IN PREDICTING GLOMERULAR FILTRATION RATE . ESTIMATED GFR I S NOT APPLICABLE FOR DIALYSIS PATIEN TS. Loader Magazine Grinder ID - MACKENZIE FPOCT-GLUCOSE [id number] 05:37:00 Test Item Value Reference Range Interpretation Comments POC-GLUCOSE METER 126 mg/dL 70-110 H : Notified RN/MD: (SINDY) (test code = TESTED AT [facility] 8897 1757) [place], [address]: Loader Magazine Grinder/Techni martin ID = [id number] for LUCY MISTRY [id number] 01:00:00 Test Item Value Reference Range Interpretation Comments PARTIAL THROMBOPLASTIN TIME 68.4 seconds 22.5-36.0 H (BEAKER) (test code = 760) POCT-GLUCOSE [id number] 00:51:00 Test Item Value Reference Range Interpretation Comments POC-GLUCOSE METER 122 mg/dL 70-110 H : Notified RN/: (BEAKER) (test code = TESTED AT [facility] 6720 2117) [facility], [address]: Loader Magazine Grinder/Techni martin ID = [id number] for LUCY MISTRY COMPREHENSIVE METABOLIC [id number] 05:37:00 Test Item Value Reference Range Interpretation Comments TOTAL PROTEIN 6.1 gm/dL 6.0-8.3 (BEAKER) (test code = 770) ALBUMIN (BEAKER) 3.1 g/dL 3.5-5.0 L (test code = 1145) ALKALINE PHOSPHATASE 79 U/L 40-150 (BEAKER) (test code = 346) BILIRUBIN TOTAL 0.7 mg/dL 0.2-1.2 (BEAKER) (test code = 377) SODIUM (BEAKER) (test 138 meq/L 136-145 code = 381) POTASSIUM (BEAKER) 4.6 meq/L 3.5-5.1 (test code = 379) CHLORIDE (BEAKER) 102 meq/L 98-107 (test code = 382) CO2 (BEAKER) (test 25 meq/L 22-29 code = 355) BLOOD UREA NITROGEN 29 mg/dL 7-21 H (BEAKER) (test code = 354) CREATININE (BEAKER) 0.81 mg/dL 0.57-1.25 (test code = 358) GLUCOSE RANDOM 106 mg/dL 70-105 H (BEAKER) (test code = 652) CALCIUM (BEAKER) 9.0 mg/dL 8.4-10.2 (test code = 697) AST (SGOT) (BEAKER) 22 U/L 5-34 (test code = 353) ALT (SGPT) (BEAKER) 84 U/L 6-55 H (test code = 347) EGFR (BEAKER) (test 91 mL/min/1.73 ESTIMA HAWK GFR IS code = 1092) sq m NOT ACCURATE CREATININE CLEARANCE IN PREDICTING GLOMERULAR FILTRATION RATE . ESTIMATED GFR I S NOT APPLICABLE FOR DIALYSIS PATIEN TS. Loader Magazine Grinder ID - SUKHDEV MPOCT-GLUCOSE [id number] 05:32:00 Test Item Value Reference Range Interpretation Comments POC-GLUCOSE METER 97 mg/dL 70-110 : TESTED A T [facility] 6720 (BEAKER) (test code = [place] [facility], 1538) [address]: Loader Magazine Grinder/Techni martin ID = [id number] for MAINOR CAMPBELL CBC W/PLT COUNT & AUTO [id number] 05:23:00 Test Item Value Reference Range Interpretation Comments WHITE BLOOD CELL COUNT (BEAKER) 17.8 K/ L 3.5-10.5 H (test code = 775) RED BLOOD CELL COUNT (BEAKER) 4.41 M/ L 4.63-6.08 L (test code = 761) HEMOGLOBIN (BEAKER) (test code = 13.9 GM/DL 13.7-17.5 410) HEMATOCRIT (BEAKER) (test code = 43.1 % 40.1-51.0 411) MEAN CORPUSCULAR VOLUME (BEAKER) 97.7 fL 79.0-92.2 H (test code = 753) MEAN CORPUSCULAR HEMOGLOBIN 31.5 pg 25.7-32.2 (BEAKER) (test code = 751) MEAN CORPUSCULAR HEMOGLOBIN CONC 32.3 GM/DL 32.3-36.5 (BEAKER) (test code = 752) RED CELL DISTRIBUTION WIDTH 14.0 % 11.6-14.4 (BEAKER) (test code = 412) PLATELET COUNT (BEAKER) (test 358 K/CU MM 150-450 code = 756) MEAN PLATELET VOLUME (BEAKER) 10.7 fL 9.4-12.4 (test code = 754) NUCLEATED RED BLOOD CELLS 0 /100 WBC 0-0 (BEAKER) (test code = 413) NEUTROPHILS RELATIVE PERCENT 81 % (BEAKER) (test code = 429) LYMPHOCYTES RELATIVE PERCENT 10 % (BEAKER) (test code = 430) MONOCYTES RELATIVE PERCENT 5 % (BEAKER) (test code = 431) EOSINOPHILS RELATIVE PERCENT 1 % (BEAKER) (test code = 432) BASOPHILS RELATIVE PERCENT 0 % (BEAKER) (test code = 437) NEUTROPHILS ABSOLUTE COUNT 14.39 K/ L 1.78-5.38 H (BEAKER) (test code = 670) LYMPHOCYTES ABSOLUTE COUNT 1.85 K/ L 1.32-3.57 (BEAKER) (test code = 414) MONOCYTES ABSOLUTE COUNT (BEAKER) 0.86 K/ L 0.30-0.82 H (test code = 415) EOSINOPHILS ABSOLUTE COUNT 0.24 K/ L 0.04-0.54 (AKER) (test code = 416) BASOPHILS ABSOLUTE COUNT (AKER) 0.07 K/ L 0.01-0.08 (test code = 417) IMMATURE GRANULOCYTES-RELATIVE 2 % 0-1 H PERCENT ([facility]) (test code = 2801) [id number] 04:54:00 Test Item Value Reference Range Interpretation Comments PARTIAL THROMBOPLASTIN TIME 73.0 seconds 22.5-36.0 H (JULIANNA) (test code = 760) POCT-GLUCOSE [id number] 23:26:00 Test Item Value Reference Range Interpretation Comments POC-GLUCOSE METER 106 mg/dL 70-110 : Notified RN/MD: (SINDY) (test code = TESTED AT [facility] 6720 1538) [facility], [address]: Loader Magazine Grinder/Techni martin ID = [id number] for KAM KEMP ICE [id number] 22:16:00 Test Item Value Reference Range Interpretation Comments PARTIAL THROMBOPLASTIN TIME 71.1 seconds 22.5-36.0 H ([facility]) (test code = 760) POCT-GLUCOSE [id number] 17:47:00 Test Item Value Reference Range Interpretation Comments POC-GLUCOSE METER 115 mg/dL 70-110 H : TESTED A T [facility] 6720 ([facility]) (test code = [place] [facility], 1538) [address]: Loader Magazine Grinder/Techni martin ID = [id number] for QUIN GREEN HSV 1/2 PCR, [id number] 15:36:00 Test Item Value Reference Range Interpretation Comments HSV, PCR (test code = NEGATIVE NEGATIVE Test p erformed 78546-2) by:[facility] [place] [address] JUDI (test code = JUDI) Herpes Simplex Virus (HSV) not detected. Lab Interpretation Normal (test code = 88982-9) [facility], [id number] 15:36:00 Test Item Value Reference Range Interpretation Comments HSV BY PCR ([facility]) NEGATIVE NEGATIVE Test per formed by:[facility] (test code = 334) [facility] [place] [address] Herpes Simplex Virus (HSV) not detected.[id number] 14:29:00 Test Item Value Reference Range Interpretation Comments PARTIAL THROMBOPLASTIN TIME 91.2 seconds 22.5-36.0 H (BEAKER) (test code = 760) COMPREHENSIVE METABOLIC [id number] 06:35:00 Test Item Value Reference Range Interpretation Comments TOTAL PROTEIN 5.8 gm/dL 6.0-8.3 L (BEAKER) (test code = 770) ALBUMIN (BEAKER) 3.0 g/dL 3.5-5.0 L (test code = 1145) ALKALINE PHOSPHATASE 75 U/L 40-150 (BEAKER) (test code = 346) BILIRUBIN TOTAL 0.5 mg/dL 0.2-1.2 (BEAKER) (test code = 377) SODIUM (BEAKER) (test 135 meq/L 136-145 L code = 381) POTASSIUM (BEAKER) 4.3 meq/L 3.5-5.1 (test code = 379) CHLORIDE (BEAKER) 102 meq/L 98-107 (test code = 382) CO2 (BEAKER) (test 23 meq/L 22-29 code = 355) BLOOD UREA NITROGEN 30 mg/dL 7-21 H (BEAKER) (test code = 354) CREATININE (BEAKER) 0.72 mg/dL 0.57-1.25 (test code = 358) GLUCOSE RANDOM 120 mg/dL 70-105 H (BEAKER) (test code = 652) CALCIUM (BEAKER) 8.6 mg/dL 8.4-10.2 (test code = 697) AST (SGOT) (BEAKER) 25 U/L 5-34 (test code = 353) ALT (SGPT) (BEAKER) 95 U/L 6-55 H (test code = 347) EGFR (BEAKER) (test 104 ESTIMATE D GFR IS code = 1092) mL/min/1.73 sq NOT ACCURA TE m CREATININE CLEARANCE IN PREDICTING GLOMERULAR FILTRATION RATE . ESTIMATED GFR I S NOT APPLICABLE FOR DIALYSIS PATIEN TS. [employer] ID - [id number] 06:22:00 Test Item Value Reference Range Interpretation Comments PARTIAL THROMBOPLASTIN TIME 60.4 seconds 22.5-36.0 H (BEAKER) (test code = 760) POCT-GLUCOSE [id number] 06:10:00 Test Item Value Reference Range Interpretation Comments POC-GLUCOSE METER 106 mg/dL 70-110 : Notified RN/MD: (BEAKER) (test code = TESTED AT [facility] [id number] [place], [address]: [employer]/Techni martin ID = [id number] for [facility] [facility] ICE CBC W/PLT COUNT & AUTO [id number] 06:10:00 Test Item Value Reference Range Interpretation Comments WHITE BLOOD CELL COUNT (BEAKER) 18.3 K/ L 3.5-10.5 H (test code = 775) RED BLOOD CELL COUNT (BEAKER) 4.25 M/ L 4.63-6.08 L (test code = 761) HEMOGLOBIN (BEAKER) (test code = 13.4 GM/DL 13.7-17.5 L 410) HEMATOCRIT (BEAKER) (test code = 41.0 % 40.1-51.0 411) MEAN CORPUSCULAR VOLUME (BEAKER) 96.5 fL 79.0-92.2 H (test code = 753) MEAN CORPUSCULAR HEMOGLOBIN 31.5 pg 25.7-32.2 (BEAKER) (test code = 751) MEAN CORPUSCULAR HEMOGLOBIN CONC 32.7 GM/DL 32.3-36.5 (BEAKER) (test code = 752) RED CELL DISTRIBUTION WIDTH 13.6 % 11.6-14.4 (BEAKER) (test code = 412) PLATELET COUNT (BEAKER) (test 407 K/CU MM 150-450 code = 756) MEAN PLATELET VOLUME (BEAKER) 10.7 fL 9.4-12.4 (test code = 754) NUCLEATED RED BLOOD CELLS 0 /100 WBC 0-0 (BEAKER) (test code = 413) NEUTROPHILS RELATIVE PERCENT 79 % (BEAKER) (test code = 429) LYMPHOCYTES RELATIVE PERCENT 11 % (BEAKER) (test code = 430) MONOCYTES RELATIVE PERCENT 5 % (BEAKER) (test code = 431) EOSINOPHILS RELATIVE PERCENT 1 % (BEAKER) (test code = 432) BASOPHILS RELATIVE PERCENT 1 % (BEAKER) (test code = 437) NEUTROPHILS ABSOLUTE COUNT 14.44 K/ L 1.78-5.38 [facility] (test code = 670) LYMPHOCYTES ABSOLUTE COUNT 2.05 K/ L 1.32-3.57 (BEAKER) (test code = 414) MONOCYTES ABSOLUTE COUNT (BEAKER) 0.99 K/ L 0.30-0.82 H (test code = 415) EOSINOPHILS ABSOLUTE COUNT 0.20 K/ L 0.04-0.54 (BEAKER) (test code = 416) BASOPHILS ABSOLUTE COUNT (BEAKER) 0.10 K/ L 0.01-0.08 H (test code = 417) IMMATURE GRANULOCYTES-RELATIVE 3 % 0-1 H PERCENT ([facility]) (test code = 2801) POCT-GLUCOSE [id number] 23:13:00 Test Item Value Reference Range Interpretation Comments POC-GLUCOSE METER 113 mg/dL 70-110 H : Notified RN/MD: ([facility]) (test code = TESTED AT [facility] 6720 1538) [facility], [address]: Loader Magazine Grinder/Techni martin ID = [id number] for KAM KEMP ICE [id number] 21:31:00 Test Item Value Reference Range Interpretation Comments PARTIAL THROMBOPLASTIN TIME 95.3 seconds 22.5-36.0 H ([facility]) (test code = 760) POCT-GLUCOSE [id number] 17:02:00 Test Item Value Reference Range Interpretation Comments POC-GLUCOSE METER 110 mg/dL 70-110 : TESTED A T [facility] 6720 ([facility]) (test [facility], [address]: code = 1538) Loader Magazine Grinder/Techni martin ID = [id number] for RADHA BEY IN [id number] 14:45:00 Test Item Value Reference Range Interpretation Comments PARTIAL THROMBOPLASTIN TIME 110.4 seconds 22.5-36.0 H ([facility]) (test code = 760) POCT-GLUCOSE [id number] 12:28:00 Test Item Value Reference Range Interpretation Comments POC-GLUCOSE METER 117 mg/dL 70-110 H : TESTED A T [facility] 6720 ([facility]) (test [facility], [address]: code = 1538) Loader Magazine Grinder/Techni martin ID = [id number] for RADHA BEY IN [id number] 08:23:00 Test Item Value Reference Range Interpretation Comments PARTIAL THROMBOPLASTIN TIME 81.9 seconds 22.5-36.0 H (BEAKER) (test code = 760) POCT-GLUCOSE [id number] 07:59:00 Test Item Value Reference Range Interpretation Comments POC-GLUCOSE METER 124 mg/dL 70-110 H : TESTED A T [facility] 6720 (BEAKER) ([place], [address]: code = 1538) Loader Magazine Grinder/Techni martin ID = [id number] for RADHA BEY IN POCT-GLUCOSE [id number] 05:26:00 Test Item Value Reference Range Interpretation Comments POC-GLUCOSE METER 129 mg/dL 70-110 H : TESTED A T [facility] 6720 (BEAKER) (test code = [place], 1538) [address]: Loader Magazine Grinder/Techni martin ID = [id number] for KATHY GUS LOWE COMPREHENSIVE METABOLIC [id number] 01:33:00 Test Item Value Reference Range Interpretation Comments TOTAL PROTEIN 5.8 gm/dL 6.0-8.3 L (BEAKER) (test code = 770) ALBUMIN (BEAKER) 3.0 g/dL 3.5-5.0 L (test code = 1145) ALKALINE PHOSPHATASE 81 U/L 40-150 (BEAKER) (test code = 346) BILIRUBIN TOTAL 0.5 mg/dL 0.2-1.2 (BEAKER) (test code = 377) SODIUM (BEAKER) (test 137 meq/L 136-145 code = 381) POTASSIUM (BEAKER) 4.2 meq/L 3.5-5.1 (test code = 379) CHLORIDE (BEAKER) 103 meq/L 98-107 (test code = 382) CO2 (BEAKER) (test 25 meq/L 22-29 code = 355) BLOOD UREA NITROGEN 26 mg/dL 7-21 H (BEAKER) (test code = 354) CREATININE (BEAKER) 0.68 mg/dL 0.57-1.25 (test code = 358) GLUCOSE RANDOM 111 mg/dL 70-105 H (BEAKER) (test code = 652) CALCIUM (BEAKER) 8.5 mg/dL 8.4-10.2 (test code = 697) AST (SGOT) (BEAKER) 38 U/L 5-34 H (test code = 353) ALT (SGPT) (BEAKER) 129 U/L 6-55 H (test code = 347) EGFR (BEAKER) (test 111 ESTIMATE D GFR IS code = 1092) mL/min/1.73 sq NOT ACCURA TE m CREATININE CLEARANCE IN PREDICTING GLOMERULAR FILTRATION RATE . ESTIMATED GFR I S NOT APPLICABLE FOR DIALYSIS PATIEN TS. Loader Magazine Grinder ID - [id number] 01:20:00 Test Item Value Reference Range Interpretation Comments PARTIAL THROMBOPLASTIN TIME 48.3 seconds 22.5-36.0 H (BEAKER) (test code = 760) CBC W/PLT COUNT & AUTO [id number] 01:17:00 Test Item Value Reference Range Interpretation Comments WHITE BLOOD CELL COUNT (BEAKER) 15.9 K/ L 3.5-10.5 H (test code = 775) RED BLOOD CELL COUNT (BEAKER) 4.24 M/ L 4.63-6.08 L (test code = 761) HEMOGLOBIN (BEAKER) (test code = 13.4 GM/DL 13.7-17.5 L 410) HEMATOCRIT (BEAKER) (test code = 40.0 % 40.1-51.0 L 411) MEAN CORPUSCULAR VOLUME (BEAKER) 94.3 fL 79.0-92.2 H (test code = 753) MEAN CORPUSCULAR HEMOGLOBIN 31.6 pg 25.7-32.2 (BEAKER) (test code = 751) MEAN CORPUSCULAR HEMOGLOBIN CONC 33.5 GM/DL 32.3-36.5 (BEAKER) (test code = 752) RED CELL DISTRIBUTION WIDTH 13.3 % 11.6-14.4 (BEAKER) (test code = 412) PLATELET COUNT (BEAKER) (test 359 K/CU MM 150-450 code = 756) MEAN PLATELET VOLUME (BEAKER) 10.5 fL 9.4-12.4 (test code = 754) NUCLEATED RED BLOOD CELLS 0 /100 WBC 0-0 (BEAKER) (test code = 413) NEUTROPHILS RELATIVE PERCENT 80 % (BEAKER) (test code = 429) LYMPHOCYTES RELATIVE PERCENT 10 % (BEAKER) (test code = 430) MONOCYTES RELATIVE PERCENT 5 % (BEAKER) (test code = 431) EOSINOPHILS RELATIVE PERCENT 1 % (BEAKER) (test code = 432) BASOPHILS RELATIVE PERCENT 0 % (BEAKER) (test code = 437) NEUTROPHILS ABSOLUTE COUNT 12.69 K/ L 1.78-5.38 H (BEAKER) (test code = 670) LYMPHOCYTES ABSOLUTE COUNT 1.62 K/ L 1.32-3.57 (BEAKER) (test code = 414) MONOCYTES ABSOLUTE COUNT (BEAKER) 0.85 K/ L 0.30-0.82 H (test code = 415) EOSINOPHILS ABSOLUTE COUNT 0.19 K/ L 0.04-0.54 (BEAKER) (test code = 416) BASOPHILS ABSOLUTE COUNT (BEAKER) 0.06 K/ L 0.01-0.08 (test code = 417) IMMATURE GRANULOCYTES-RELATIVE 3 % 0-1 H PERCENT (BEAKER) (test code = 2801) [id number] 23:24:00 Test Item Value Reference Range Interpretation Comments PARTIAL THROMBOPLASTIN TIME 113.3 seconds 22.5-36.0 H (BEAKER) (test code = 760) POCT-GLUCOSE [id number] 23:13:00 Test Item Value Reference Range Interpretation Comments POC-GLUCOSE METER 109 mg/dL 70-110 : TESTED A T [facility] 6720 (BEAKER) (test code = [facility], 1538) [address]: Loader Magazine Grinder/Techni martin ID = [id number] for LO PEZ, NADINA POCT-GLUCOSE [id number] 18:23:00 Test Item Value Reference Range Interpretation Comments POC-GLUCOSE METER 101 mg/dL 70-110 : TESTED A T [facility] 6720 (BEAKER) (test code = [facility], 1538) [address]: Loader Magazine Grinder/Techni martin ID = [id number] for AK INSNAVEEDU, CURTIS [id number] 16:24:00 Test Item Value Reference Range Interpretation Comments PARTIAL THROMBOPLASTIN TIME 39.4 seconds 22.5-36.0 H (BEAKER) (test code = 760) [id number] 15:44:00 Test Item Value Reference Range Interpretation Comments Ammonia (test code = 47 18- 72 mol/L 78272-9) JUDI (test code = JUDI) Loader Magazine Grinder ID - BS Lab Interpretation (test Normal code = 64421-3) [facility] 15:44[facility]00 Test Item Value Reference Range Interpretation Comments AMMONIA (BEAKER) (test code = 348) 47 mol/L 18-72 Loader Magazine Grinder ID - [id number] 13:19:00 Test Item Value Reference Range Interpretation Comments PARTIAL THROMBOPLASTIN TIME 131.7 seconds 22.5-36.0 H (BEAKER) (test code = 760) POCT-GLUCOSE [id number] 13:05:00 Test Item Value Reference Range Interpretation Comments POC-GLUCOSE METER 113 mg/dL 70-110 H : [facility] (BEAKER[facility] (test code = [place], 1538) [address]: Loader Magazine Grinder/Techni martin ID = [id number] for CURTIS HUYNH B-type Natriuretic Factor (BNP)2020-02-17 08:18:00 Test Item Value Reference Range Interpretation Comments BNP (test code = 24434-1) 30 pg/mL 0-100 JUDI (test code = JUDI) Loader Magazine Grinder ID - PIAYA L Lab Interpretation (test Normal code = 25935-6) [facility] (BNP)2020-02-17 08:18:00 Test Item Value Reference Range Interpretation Comments B-TYPE NATRIURETIC PEPTIDE (BEAKER) 30 pg/mL 0-100 (test code = 700) Loader Magazine Grinder ID - PIAYA LCOMPREHENSIVE METABOLIC [id number] 08:13:00 Test Item Value Reference Range Interpretation Comments TOTAL PROTEIN 5.4 gm/dL 6.0-8.3 L Specimen sligh tly (BEAKER) (test code = hemoly zed 770) ALBUMIN (BEAKER) 2.7 g/dL 3.5-5.0 L Specimen sl ightly (test code = 1145) hemolyzed ALKALINE PHOSPHATASE 76 U/L 40-150 (BEAKER) (test code = 346) BILIRUBIN TOTAL 0.5 mg/dL 0.2-1.2 Specimen sli ghtly (BEAKER) (test code = hemoly zed 377) SODIUM (BEAKER) (test 138 meq/L 136-145 code = 381) POTASSIUM (BEAKER) 4.3 meq/L 3.5-5.1 Specimen slightly (test code = 379) hemolyzed CHLORIDE (BEAKER) 104 meq/L 98-107 (test code = 382) CO2 (BEAKER) (test 25 meq/L 22-29 code = 355) BLOOD UREA NITROGEN 25 mg/dL 7-21 H (BEAKER) (test code = 354) CREATININE (BEAKER) 0.67 mg/dL 0.57-1.25 Specimen slightly (test code = 358) hemolyzed GLUCOSE RANDOM 123 mg/dL 70-105 H (BEAKER) (test code = 652) CALCIUM (BEAKER) 8.3 mg/dL 8.4-10.2 L (test code = 697) AST (SGOT) (BEAKER) 53 U/L 5-34 H Specimen slightly (test code = 353) hemolyzed ALT (SGPT) (BEAKER) 149 U/L 6-55 H Specimen slightly (test code = 347) hemolyzed EGFR (BEAKER) (test 113 ESTIMATE D GFR IS code = 1092) mL/min/1.73 sq NOT ACCURA TE m CREATININE CLEARANCE IN PREDICTING GLOMERULAR FILTRATION RATE . ESTIMATED GFR I S NOT APPLICABLE FOR DIALYSIS PATIEN TS. Loader Magazine Grinder ID - PIAYA LCBC W/PLT COUNT & AUTO [id number] 07:50:00 Test Item Value Reference Range Interpretation Comments WHITE BLOOD CELL COUNT (BEAKER) 18.5 K/ L 3.5-10.5 H (test code = 775) RED BLOOD CELL COUNT (BEAKER) 4.02 M/ L 4.63-6.08 L (test code = 761) HEMOGLOBIN (BEAKER) (test code = 12.8 GM/DL 13.7-17.5 L 410) HEMATOCRIT (BEAKER) (test code = 38.1 % 40.1-51.0 L 411) MEAN CORPUSCULAR VOLUME (BEAKER) 94.8 fL 79.0-92.2 H (test code = 753) MEAN CORPUSCULAR HEMOGLOBIN 31.8 pg 25.7-32.2 (BEAKER) (test code = 751) MEAN CORPUSCULAR HEMOGLOBIN CONC 33.6 GM/DL 32.3-36.5 (BEAKER) (test code = 752) RED CELL DISTRIBUTION WIDTH 13.2 % 11.6-14.4 (BEAKER) (test code = 412) PLATELET COUNT (BEAKER) (test 373 K/CU MM 150-450 code = 756) MEAN PLATELET VOLUME (BEAKER) 11.0 fL 9.4-12.4 (test code = 754) NUCLEATED RED BLOOD CELLS 0 /100 WBC 0-0 (BEAKER) (test code = 413) NEUTROPHILS RELATIVE PERCENT 82 % (BEAKER) (test code = 429) LYMPHOCYTES RELATIVE PERCENT 9 % (BEAKER) (test code = 430) MONOCYTES RELATIVE PERCENT 5 % (BEAKER) (test code = 431) EOSINOPHILS RELATIVE PERCENT 2 % (BEAKER) (test code = 432) BASOPHILS RELATIVE PERCENT 0 % (BEAKER) (test code = 437) NEUTROPHILS ABSOLUTE COUNT 15.12 K/ L 1.78-5.38 H (BEAKER) (test code = 670) LYMPHOCYTES ABSOLUTE COUNT 1.58 K/ L 1.32-3.57 (BEAKER) (test code = 414) MONOCYTES ABSOLUTE COUNT (BEAKER) 0.94 K/ L 0.30-0.82 H (test code = 415) EOSINOPHILS ABSOLUTE COUNT 0.27 K/ L 0.04-0.54 (BEAKER) (test code = 416) BASOPHILS ABSOLUTE COUNT (BEAKER) 0.05 K/ L 0.01-0.08 (test code = 417) IMMATURE GRANULOCYTES-RELATIVE 3 % 0-1 H PERCENT (BEAKER) (test code = 2801) [id number] 07:50:00 Test Item Value Reference Range Interpretation Comments PARTIAL THROMBOPLASTIN TIME 64.1 seconds 22.5-36.0 H (BEAKER) (test code = 760) POCT-GLUCOSE [id number] 05:46:00 Test Item Value Reference Range Interpretation Comments POC-GLUCOSE METER 125 mg/dL 70-110 H : TESTED A T [facility] 6720 (BEAKER) (test code = [place], 1538) [address]: Loader Magazine Grinder/Techni martin ID = [id number] for MESHA BEKAJARON LUCIO [id number] 01:20:00 Test Item Value Reference Range Interpretation Comments PARTIAL THROMBOPLASTIN TIME 62.0 seconds 22.5-36.0 H (BEAKER) (test code = 760) POCT-GLUCOSE [id number] 00:19:00 Test Item Value Reference Range Interpretation Comments POC-GLUCOSE METER 108 mg/dL 70-110 : TESTED A T [facility] 6720 (BEAKER) (test code = [facility], 1538) [address]: Loader Magazine Grinder/Techni martin ID = [id number] for JARON VINCENT [id number] 18:07:00 Test Item Value Reference Range Interpretation Comments PARTIAL THROMBOPLASTIN TIME 68.1 seconds 22.5-36.0 H (BEAKER) (test code = 760) POCT-GLUCOSE [id number] 18:00:00 Test Item Value Reference Range Interpretation Comments POC-GLUCOSE METER 119 mg/dL 70-110 H : TESTED A T [facility] 6720 (BEAKER) (test code = [facility], 1538) [address]: Loader Magazine Grinder/Techni martin ID = [id number] for YAHAIRA COLINDRES (V), YUDI POCT-GLUCOSE [id number] 13:01:00 Test Item Value Reference Range Interpretation Comments POC-GLUCOSE METER 126 mg/dL 70-110 H : TESTED A T [facility] 6720 (BEAKER) (test code = [facility], 1538) [address]: Loader Magazine Grinder/Techni martin ID = [id number] for MIGDALIA SINCLAIR [id number] 12:56:00 Test Item Value Reference Range Interpretation Comments PARTIAL THROMBOPLASTIN TIME 108.0 seconds 22.5-36.0 H (BEAKER) (test code = 760) Vitamin [id number] 12:09:00 Test Item Value Reference Range Interpretation Comments Vitamin B12 (test code = 962 pg/mL 213-816 H 2132-9) JUDI (test code = JUDI) Loader Magazine Grinder ID - SUKHDEV M Lab Interpretation (test Abnormal code = 76591-7) [facility] [id number] 12:09:00 Test Item Value Reference Range Interpretation Comments VITAMIN B12 (BEAKER) (test code = 962 pg/mL 213-816 H 774) Loader [employer] Grinder ID Joon SANTIZO epatic function [id number] 11:45:00 Test Item Value Reference Range Interpretation Comments Protein, Total (test 5.3 6.0- 8.3 gm/dL L Speci men code = 2885-2) slightly hemolyzed Albumin (test code = 2.6 g/dL 3.5-5 L Specime n 91508-4) slightly hemolyzed Total Bilirubin (test 0.6 mg/dL 0.2-1.2 Specim en code = 1975-2) slightly hemolyzed Bilirubin, Direct 0.2 mg/dL 0.1-0.5 Specimen (test code = 1968-7) slightl y hemolyzed Alkaline Phosphatase 75 U/L 40-150 (test code = 6768-6) AST (test code = 65 U/L 5-34 H Specimen 1920-8) slightly hemolyzed ALT (test code = 168 U/L 6-55 H Specimen 1742-6) slightly hemolyzed JUDI (test code = JUDI) Loader Magazine Grinder ID - SUKHDEV M Lab Interpretation Abnormal (test code = 12840-7) [facility] [id number] 11:45:00 Test Item Value Reference Range Interpretation Comments TOTAL PROTEIN (BEAKER) 5.3 gm/dL 6.0-8.3 L Speci men slightly (test code = 770) hemolyzed ALBUMIN (BEAKER) (test 2.6 g/dL 3.5-5.0 L Speci men slightly code = 1145) hemolyzed BILIRUBIN TOTAL 0.6 mg/dL 0.2-1.2 Specimen sli ghtly (BEAKER) (test code = hemoly zed 377) BILIRUBIN DIRECT 0.2 mg/dL 0.1-0.5 Specimen sl ightly (BEAKER) (test code = hemoly zed 706) ALKALINE PHOSPHATASE 75 U/L 40-150 (BEAKER) (test code = 346) AST (SGOT) (BEAKER) 65 U/L 5-34 H Specimen slightly (test code = 353) hemolyzed ALT (SGPT) (BEAKER) 168 U/L 6-55 H Specimen slightly (test code = 347) hemolyzed Loader Magazine Grinder ID - SUKHDEV MBASIC METABOLIC [id number] 07:16:00 Test Item Value Reference Range Interpretation Comments SODIUM (BEAKER) 140 meq/L 136-145 (test code = 381) POTASSIUM (BEAKER) 4.1 meq/L 3.5-5.1 Specimen slightly (test code = 379) hemolyzed CHLORIDE (BEAKER) 106 meq/L 98-107 (test code = 382) CO2 (BEAKER) (test 27 meq/L 22-29 code = 355) BLOOD UREA NITROGEN 27 mg/dL 7-21 H (BEAKER) (test code = 354) CREATININE (BEAKER) 0.70 mg/dL 0.57-1.25 Specimen slightly (test code = 358) hemolyzed GLUCOSE RANDOM 119 mg/dL 70-105 H (BEAKER) (test code = 652) CALCIUM (BEAKER) 8.3 mg/dL 8.4-10.2 L (test code = 697) EGFR (BEAKER) (test 108 mL/min/1.73 ESTIM ATED GFR IS code = 1092) sq m NOT ACCURATE CREATININE CLEARANCE IN PREDICTING GLOMERULAR FILTRATION RATE . ESTIMATED GFR I S NOT APPLICABLE FOR DIALYSIS PATIEN TS. Loader Magazine Grinder ID - MACKENZEI FCBC W/PLT COUNT & AUTO [id number] 06:45:00 Test Item Value Reference Range Interpretation Comments WHITE BLOOD CELL COUNT (BEAKER) 20.0 K/ L 3.5-10.5 H (test code = 775) RED BLOOD CELL COUNT (BEAKER) 4.09 M/ L 4.63-6.08 L (test code = 761) HEMOGLOBIN (BEAKER) (test code = 13.0 GM/DL 13.7-17.5 L 410) HEMATOCRIT (BEAKER) (test code = 39.5 % 40.1-51.0 L 411) MEAN CORPUSCULAR VOLUME (BEAKER) 96.6 fL 79.0-92.2 H (test code = 753) MEAN CORPUSCULAR HEMOGLOBIN 31.8 pg 25.7-32.2 (BEAKER) (test code = 751) MEAN CORPUSCULAR HEMOGLOBIN CONC 32.9 GM/DL 32.3-36.5 (BEAKER) (test code = 752) RED CELL DISTRIBUTION WIDTH 13.4 % 11.6-14.4 (BEAKER) (test code = 412) PLATELET COUNT (BEAKER) (test 358 K/CU MM 150-450 code = 756) MEAN PLATELET VOLUME (BEAKER) 11.3 fL 9.4-12.4 (test code = 754) NUCLEATED RED BLOOD CELLS 0 /100 WBC 0-0 (BEAKER) (test code = 413) NEUTROPHILS RELATIVE PERCENT 81 % (BEAKER) (test code = 429) LYMPHOCYTES RELATIVE PERCENT 9 % (BEAKER) (test code = 430) MONOCYTES RELATIVE PERCENT 5 % (BEAKER) (test code = 431) EOSINOPHILS RELATIVE PERCENT 1 % (BEAKER) (test code = 432) BASOPHILS RELATIVE PERCENT 0 % (BEAKER) (test code = 437) NEUTROPHILS ABSOLUTE COUNT 16.24 K/ L 1.78-5.38 H (BEAKER) (test code = 670) LYMPHOCYTES ABSOLUTE COUNT 1.71 K/ L 1.32-3.57 (BEAKER) (test code = 414) MONOCYTES ABSOLUTE COUNT (BEAKER) 1.00 K/ L 0.30-0.82 H (test code = 415) EOSINOPHILS ABSOLUTE COUNT 0.28 K/ L 0.04-0.54 (BEAKER) (test code = 416) BASOPHILS ABSOLUTE COUNT (BEAKER) 0.05 K/ L 0.01-0.08 (test code = 417) IMMATURE GRANULOCYTES-RELATIVE 3 % 0-1 H PERCENT (BEAKER) (test code = 2801) [id number] 06:38:00 Test Item Value Reference Range Interpretation Comments PARTIAL THROMBOPLASTIN TIME 80.0 seconds 22.5-36.0 H ([facility]) (test code = 760) POCT-GLUCOSE [id number] 06:19:00 Test Item Value Reference Range Interpretation Comments POC-GLUCOSE METER 124 mg/dL 70-110 H : TESTED A T [facility] 67 ([facility]) (test code = [facility], 1538) [address]: Loader Magazine Grinder/Techni martin ID = [id number] for DO EVAN ARAYAA [id number] 00:15:00 Test Item Value Reference Range Interpretation Comments PARTIAL THROMBOPLASTIN TIME 59.2 seconds 22.5-36.0 H ([facility]) (test code = 760) POCT-GLUCOSE [id number] 23:51:00 Test Item Value Reference Range Interpretation Comments POC-GLUCOSE METER 132 mg/dL 70-110 H : Notified RN/MD: ([facility]) (test code = TESTED AT [place] [id number] 1538) [facility], [address]: Loader Magazine Grinder/Techni martin ID = [id number] for DO MARSHAL, EVANA [id number] 18:45:00 Test Item Value Reference Range Interpretation Comments PARTIAL THROMBOPLASTIN TIME 52.0 seconds 22.5-36.0 H (BEAKER) (test code = 760) MRSA [id number] 13:23:00 Test Item Value Reference Range Interpretation Comments CULTURE (BEAKER) (test code No MRSA isolated = 1095) CALCIUM, [id number] 13:20:00 Test Item Value Reference Range Interpretation Comments CALCIUM IONIZED (BEAKER) (test 1.09 mmol/L 1.12-1.27 L code = 698) PH, BLOOD (BEAKER) (test code = 7.43 1810) Check serum Ionized Calcium level after 4 hours after IV Calcium replacement. POCT-GLUCOSE [id number] 13:08:00 Test Item Value Reference Range Interpretation Comments POC-GLUCOSE METER 111 mg/dL 70-110 H : TESTED A T [facility] 6720 (SINDY) (test code = [place], 1538) [address]: Loader Magazine Grinder/Techni martin ID = [id number] for DANNY ORLIN BONNER Clostridium difficile GDH [id number] 13:03:00 Test Item Value Reference Range Interpretation Comments C. Difficle Toxin Negative Negative (test code = 9733032503) C. Difficile GDH Negative Negative No indicati on of Antigen (test code = Clostri dium 1971732271) difficile infection and n o colonization. Discontinue enteric isolati on and therapy. JUDI (test code = Testing performed JUDI) by [employer] Rapid Cassette Assay. For GDH, published sensitivity of the assay is 98.7% compared to cytotoxicity testing. For Toxin AB, published sensitivity is 87.8% and specificity 99.4% compared to cytotoxicity testing.Verificati on of kit performance was done by the [facility] Microbiology Lab prior to clinical use. Lab Interpretation Normal (test code = 37847-3) [facility]IC[facility] [id number] 13:03:00 Test Item Value Reference Range Interpretation Comments CDT TOXIN (test code Negative Negative = 6281246856) CDT GDH ANTIGEN (test Negative Negative No ind ication of code = 0119779849) Clostridi um difficile infection and n o colonization. Discontinue ent [place] isolation and t herapy. Testing performed by Ale[employer] Rapid Cassette Assay. For GDH, published sensitivity of the assay is 98.7% compared to cytotoxicity testing. For Toxin AB, published sensitivity is 87.8% and specificity 99.4% compared to cytotoxicity testing.Verification of kit performance was done by the [facility] Microbiology Lab prior to clinical use.[id number] 11:14:00 Test Item Value Reference Range Interpretation Comments MAGNESIUM (BEAKER) (test code = 2.2 mg/dL 1.6-2.6 627) Loader Magazine Grinder ID - [id number] 11:09:00 Test Item Value Reference Range Interpretation Comments PARTIAL THROMBOPLASTIN TIME 109.4 seconds 22.5-36.0 H (BEAKER) (test code = 760) Hepatitis panel, [id number] 10:28:00 Test Item Value Reference Range Interpretation Comments Hep A IgM (test code = Nonreactive Nonreactive 09210-8) Hep B C IgM (test code = Nonreactive Nonreactive 90045-7) Hepatitis C Ab (test Nonreactive Nonreactive code = 41208-4) HBsAg Screen (test code Nonreactive Nonreactive = 5195-3) JUDI (test code = JUDI) Loader Magazine Grinder ID - SUKHDEV M Lab Interpretation (test Normal code = 53253-8) [facility], [id number] 10:28:00 Test Item Value Reference Range Interpretation Comments HEPATITIS A IGM ANTIBODY (BEAKER) Nonreactive Nonreactive (test code = 498) HEPATITIS B CORE IGM ANTIBODY Nonreactive Nonreactive (BEAKER) (test code = 645) HEPATITIS C ANTIBODY (BEAKER) Nonreactive Nonreactive (test code = 367) HEPATITIS B SURFACE ANTIGEN (2) Nonreactive Nonreactive (BEAKER) (test code = 2585) Loader Magazine Grinder ID - SUKHDEV [id number] 09:40:00 Test Item Value Reference Range Interpretation Comments PROCALCITONIN (BEAKER) (test code 0.22 ng/mL <0.05 H = 3036) SEPSIS RISK (ng/mL)Low: 0.05-0.50Intermediate: 0.51-2.00High: >=2.01Bronchial culture + gram [id number] 09:37:00 Test Item Value Reference Range Interpretation Comments Result (test code = See comment 6463-4) Gram Stain Result <1+ budding yeast (test code = 1123) JUDI (test code = 1+ YeastNo Normal JUDI) [facility] [id number] 09:37:00 Test Item Value Reference Range Interpretation Comments CULTURE (BEAKER) (test code See comment = 1095) GRAM STAIN RESULT (BEAKER) 3+ WBCs (test code = 1123) GRAM STAIN RESULT (BEAKER) <1+ budding yeast (test code = 304026) 1+ YeastNo Normal respiratory ricardo presentLACTIC ACID, [id number] 08:39:00 Test Item Value Reference Range Interpretation Comments LACTATE BLOOD ARTERIAL (2) 0.7 mmol/L 0.5-2.2 (BEAKER) (test code = 2874) [employer] ID - SUKHDEV MBASIC METABOLIC [id number] 04:25:00 Test Item Value Reference Range Interpretation Comments SODIUM (BEAKER) 141 meq/L 136-145 (test code = 381) POTASSIUM (BEAKER) 3.9 meq/L 3.5-5.1 (test code = 379) CHLORIDE (BEAKER) 107 meq/L 98-107 (test code = 382) CO2 (BEAKER) (test 25 meq/L 22-29 code = 355) BLOOD UREA NITROGEN 25 mg/dL 7-21 H (BEAKER) (test code = 354) CREATININE (BEAKER) 0.65 mg/dL 0.57-1.25 (test code = 358) GLUCOSE RANDOM 135 mg/dL 70-105 H (BEAKER) (test code = 652) CALCIUM (BEAKER) 7.9 mg/dL 8.4-10.2 L (test code = 697) EGFR (BEAKER) (test 117 mL/min/1.73 ESTIM ATED GFR IS code = 1092) sq m NOT ACCURATE CREATININE CLEARANCE IN PREDICTING GLOMERULAR FILTRATION RATE . ESTIMATED GFR I S NOT APPLICABLE FOR DIALYSIS PATIEN TS. [employer] ID - [id number] 04:16:00 Test Item Value Reference Range Interpretation Comments MAGNESIUM (BEAKER) (test code = 1.9 mg/dL 1.6-2.6 627) [employer] ID - [id number] 04:16:00 Test Item Value Reference Range Interpretation Comments PHOSPHORUS (BEAKER) (test code = 2.6 mg/dL 2.3-4.7 604) [employer] ID - ADMINHEPATIC FUNCTION [id number] 04:16:00 Test Item Value Reference Range Interpretation Comments TOTAL PROTEIN (BEAKER) (test code = 5.0 gm/dL 6.0-8.3 L 770) ALBUMIN (BEAKER) (test code = 1145) 2.6 g/dL 3.5-5.0 L BILIRUBIN TOTAL (BEAKER) (test code 0.6 mg/dL 0.2-1.2 = 377) BILIRUBIN DIRECT (BEAKER) (test 0.3 mg/dL 0.1-0.5 code = 706) ALKALINE PHOSPHATASE (BEAKER) (test 82 U/L 40-150 code = 346) AST (SGOT) (BEAKER) (test code = 100 U/L 5-34 H 353) ALT (SGPT) (BEAKER) (test code = 215 U/L 6-55 H 347) [employer] ID - ADMINCBC W/PLT COUNT & AUTO [id number] 04:04:00 Test Item Value Reference Range Interpretation Comments WHITE BLOOD CELL COUNT (BEAKER) 22.5 K/ L 3.5-10.5 H (test code = 775) RED BLOOD CELL COUNT (BEAKER) 4.14 M/ L 4.63-6.08 L (test code = 761) HEMOGLOBIN (BEAKER) (test code = 12.8 GM/DL 13.7-17.5 L 410) HEMATOCRIT (BEAKER) (test code = 39.1 % 40.1-51.0 L 411) MEAN CORPUSCULAR VOLUME (BEAKER) 94.4 fL 79.0-92.2 H (test code = 753) MEAN CORPUSCULAR HEMOGLOBIN 30.9 pg 25.7-32.2 (BEAKER) (test code = 751) MEAN CORPUSCULAR HEMOGLOBIN CONC 32.7 GM/DL 32.3-36.5 (BEAKER) (test code = 752) RED CELL DISTRIBUTION WIDTH 13.2 % 11.6-14.4 (BEAKER) (test code = 412) PLATELET COUNT (BEAKER) (test 368 K/CU MM 150-450 code = 756) MEAN PLATELET VOLUME (BEAKER) 11.2 fL 9.4-12.4 (test code = 754) NUCLEATED RED BLOOD CELLS 0 /100 WBC 0-0 (BEAKER) (test code = 413) NEUTROPHILS RELATIVE PERCENT 85 % (BEAKER) (test code = 429) LYMPHOCYTES RELATIVE PERCENT 7 % (BEAKER) (test code = 430) MONOCYTES RELATIVE PERCENT 4 % (BEAKER) (test code = 431) EOSINOPHILS RELATIVE PERCENT 1 % (BEAKER) (test code = 432) BASOPHILS RELATIVE PERCENT 0 % (BEAKER) (test code = 437) NEUTROPHILS ABSOLUTE COUNT 19.07 K/ L 1.78-5.38 H (BEAKER) (test code = 670) LYMPHOCYTES ABSOLUTE COUNT 1.53 K/ L 1.32-3.57 (BEAKER) (test code = 414) MONOCYTES ABSOLUTE COUNT (BEAKER) 0.87 K/ L 0.30-0.82 H (test code = 415) EOSINOPHILS ABSOLUTE COUNT 0.21 K/ L 0.04-0.54 (BEAKER) (test code = 416) BASOPHILS ABSOLUTE COUNT (BEAKER) 0.07 K/ L 0.01-0.08 (test code = 417) IMMATURE GRANULOCYTES-RELATIVE 3 % 0-1 H PERCENT (BEAKER) (test code = 2801) [id number] 04:01:00 Test Item Value Reference Range Interpretation Comments PARTIAL THROMBOPLASTIN TIME 88.0 seconds 22.5-36.0 H (BEAKER) (test code = 760) BLOOD [id number] 04:00:00 Test Item Value Reference Range Interpretation Comments CULTURE (BEAKER) (test No growth in 5 days code = 1095) BLOOD [id number] 04:00:00 Test Item Value Reference Range Interpretation Comments CULTURE (BEAKER) (test No growth in 5 days code = 1095) CALCIUM, [id number] 03:59:00 Test Item Value Reference Range Interpretation Comments CALCIUM IONIZED (BEAKER) (test 1.08 mmol/L 1.12-1.27 L code = 698) PH, BLOOD (BEAKER) (test code = 7.55 1810) BLOOD GAS, [id number] 03:54:00 Test Item Value Reference Range Interpretation Comments PH ARTERIAL (BEAKER) (test code = 7.56 7.35-7.45 H 383) PCO2 ARTERIAL (BEAKER) (test code 31 mm Hg 35-45 L = 384) PO2 ARTERIAL (BEAKER) (test code = 179 mm Hg 80-90 H 385) O2 SATURATION ARTERIAL (BEAKER) 99.4 % 96.0-97.0 H (test code = 386) HCO3 ARTERIAL (BEAKER) (test code 27 mmol/L 21-29 = 388) BASE EXCESS ARTERIAL (BEAKER) 4.9 mmol/L -2.0-3.0 H (test code = 387) PATIENT TEMPERATURE (BEAKER) (test 37.2 code = 1818) FIO2 (BEAKER) (test code = 1819) 28.0 POCT-GLUCOSE [id number] 23:53:00 Test Item Value Reference Range Interpretation Comments POC-GLUCOSE METER 117 mg/dL 70-110 H : TESTED A T [facility] 6720 (BEAKER) (test code [facility], = 1538) [address]: Loader Magazine Grinder/Techni martin ID = [id number] for SUZIE GREGORY [id number] 22:15:00 Test Item Value Reference Range Interpretation Comments PARTIAL THROMBOPLASTIN TIME 62.6 seconds 22.5-36.0 H (BEAKER) (test code = 760) POCT-GLUCOSE [id number] 18:52:00 Test Item Value Reference Range Interpretation Comments POC-GLUCOSE METER 115 mg/dL 70-110 H : TESTED A T [facility] 67[facility] (BEAKER) (test code = KENYON Haney [facility], 1538) [address]: Loader Magazine Grinder/Techni martin ID = [id number] for ROYAL SHAFFER SARS-COV2/RT-PCR ([facility])2020-02-14 18:27:00 Test Item Value Reference Range Interpretation Comments SARS-COV2/RT-PCR (test Negative Not Detected, Negative, code = 3669941) See external report for linked test SARS-COV-2 PERFORMING LAB [facility] GAUDENCIO (test code = 7981865) Negative result for this test determines that SARS-CoV-2 RNA was not present in the specimen above the Limit of Detection (LOD). However, Negative results do not preclude SARS-CoV-2 infection and should not be used as the sole basis for treatment or patient management decisions. Negative results mustbe combined with clinical observations, patient history, and epidemiological information. A false negative result may occur if a specimen is improperly collected, transported or handled. A false negative result should be considered if patient's recent exposures or clinical presentation indicate that COVID-19 (SARS-CoV-2) is likely and diagnostic tests for other causes of illness are negative. Re-testing should be considered in cases of suspected false negatives.The limit of detection for this assay is 100 copies/mL.This SARS CoV-2 test is a real-time RT-PCR test intended for the qualitative detection of nucleic acid from SARS-CoV-2 in a nasopharyngeal swab specimen collected from individuals suspected of COVID-19 by their healthcare provider.This test has not been Food and Drug [...] is revoked under Section 564(g) of the Act.Testing was performed using the Fuentes SARS-CoV-2 assay.Fact Sheet for Healthcare Providers:https://www.[employer].fuentes/luigi/ ZK_FGDC-EnS-6_PND_Gvms_Yelog_10-293609.pdfFact Sheet for Healthcare Patients:https://www.[employer] cony/luigi/PG_NGHE-VeA-4_Lesnpsg_Qjkt_Kfjge_HW_46-945599O9.pdfPerforming Laboratory:[facility] [place] [address] VANCOMYCIN LEVEL, [id number] 16:36:00 Test Item Value Reference Range Interpretation Comments VANCOMYCIN TROUGH (BEAKER) (test 12.5 ug/mL 10.0-20.0 code = 522) Loader Magazine Grinder ID - ADMINIf >20 then hold fourth dose.If <15 then please notify .Thank you.CALCIUM, [id number] 16:12:00 Test Item Value Reference Range Interpretation Comments CALCIUM IONIZED (BEAKER) (test 1.08 mmol/L 1.12-1.27 L code = 698) PH, BLOOD (BEAKER) (test code = 7.55 1810) Check serum Ionized Calcium level after 4 hours after IV Calcium replacement. [id number] 16:08:00 Test Item Value Reference Range Interpretation Comments Potassium (test code = 4.0 meq/L 3.5-5.1 2823-3) JUDI (test code = JUDI) Loader Magazine Grinder ID - ADMIN Lab Interpretation (test Normal code = 66927-3) [facility] 16:08:00 Test Item Value Reference Range Interpretation Comments PARTIAL THROMBOPLASTIN TIME 53.8 seconds 22.5-36.0 H (BEAKER) (test code = 760) [id number] 16:08:00 Test Item Value Reference Range Interpretation Comments POTASSIUM (BEAKER) (test code = 4.0 meq/L 3.5-5.1 379) Loader Magazine Grinder ID - ADMINPOCT-GLUCOSE [id number] 12:18:00 Test Item Value Reference Range Interpretation Comments POC-GLUCOSE METER 125 mg/dL 70-110 H : Notified RN/MD: (SINDY) (test code = TESTED AT [facility] 6720 1538) [facility], [address]: Loader Magazine Grinder/Techni martin ID = [id number] for ROYAL SHAFFER [id number] 10:19:00 Test Item Value Reference Range Interpretation Comments PARTIAL THROMBOPLASTIN TIME 83.2 seconds 22.5-36.0 H (BEAKER) (test code = 760) Venous doppler legs [id number] 07:33:53Ejection FractionSLE ECHO HEARTLAB MKCKESSON CPACSRight Impression1. There is no deep venous obstruction in the common femoral, profundafemoral, femoral, popliteal, posterior tibial or peroneal veins.2. There is no superficial venous obstruction in the great saphenous vein.Left Impression1. There is no deep venous obstruction in the common femoral, profundafemoral, femoral, popliteal, posterior tibial or peroneal veins.2. There is no superficial venous obstruction in the great saphenous vein. Conclusions Summary Venous duplex imaging and compression of the bilateral lower extremities were performed. The veins were adequately visualized. The bilateral venous systems were patent and compressiblewith no evidence of thrombus. The venous Doppler waveforms were phasic with respiration . Signature Velocities are measured in cm/s ; Diameters are measured in cm Interface, External Ris In - 02/14/2020 7:34 AM CSTPV LAB - Lower Extremities DVT Study Demographics Patient Name ANAM PURI Date of Study 02/13/2020 GENE Age 84 Visit Number [id number] Gender Male Accession Number [id number] Date of 1935 Referring Perez Simpson Room Number 7516 Physician Tiffanie 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 Gio Julien Interpreting Nati Beck T Physician ProcedureType of Study: Veins: Lower Extremities DVT Study, VENOUS DOPPLER LEG, BILATERAL. Indications for Study:R/O DVT.Patient Status:STAT.Study Location:Portable.Technical Quality:Adequate visualization.Risk FactorsHistory of Disease+ +----+------ --+!Diagnosis !Date!Comments!+ +----+--------+!History/Risk Factors: ! !HTN, HLD!+ +----+--------+ ImpressionsRight Impression1. There is no deep venous obstruction in the common femoral, profundafemoral, femoral, popliteal, posterior tibial or peroneal veins.2. There is no superficial venous obstruction in the great saphenous vein.Left Impression1. There is no deep venous obstruction in the common femoral,profundafemoral, femoral, popliteal, posterior tibial or peroneal veins.2. There is no superficial venous obstruction in the great saphenous vein. Conclusions Summary Venous duplex imaging and compression of the bilateral lower extremities were performed. The veins were adequately visualized. The padmini ateral venous systems were patent and compressible with no evidence of thrombus. The venous Doppler waveforms were phasic with respiration . Signature Velocities are measured in cm/s ; Diameters are measured in [facility] POCT-GLUCOSE [id number] 07:15:00 Test Item Value Reference Range Interpretation Comments POC-GLUCOSE METER 131 mg/dL 70-110 H : TESTED A T [facility] 6720 (BEAKER) (test code [facility], = 1538) [address]: Loader Magazine Grinder/Techni martin ID = [id number] for SUZIE GREGORY BASIC METABOLIC [id number] 05:17:00 Test Item Value Reference Range Interpretation Comments SODIUM (BEAKER) 142 meq/L 136-145 (test code = 381) POTASSIUM (BEAKER) 3.8 meq/L 3.5-5.1 (test code = 379) CHLORIDE (BEAKER) 108 meq/L 98-107 H (test code = 382) CO2 (BEAKER) (test 27 meq/L 22-29 code = 355) BLOOD UREA NITROGEN 25 mg/dL 7-21 H (BEAKER) (test code = 354) CREATININE (BEAKER) 0.60 mg/dL 0.57-1.25 (test code = 358) GLUCOSE RANDOM 164 mg/dL 70-105 H (BEAKER) (test code = 652) CALCIUM (BEAKER) 7.6 mg/dL 8.4-10.2 L (test code = 697) EGFR (BEAKER) (test 129 mL/min/1.73 ESTIM ATED GFR IS code = 1092) sq m NOT ACCURATE CREATININE CLEARANCE IN PREDICTING GLOMERULAR FILTRATION RATE . ESTIMATED GFR I S NOT APPLICABLE FOR DIALYSIS PATIEN TS. Loader Magazine Grinder ID - [id number] 05:16:00 Test Item Value Reference Range Interpretation Comments MAGNESIUM (BEAKER) (test code = 2.3 mg/dL 1.6-2.6 627) Loader Magazine Grinder ID - [id number] 05:16:00 Test Item Value Reference Range Interpretation Comments PHOSPHORUS (BEAKER) (test code = 2.7 mg/dL 2.3-4.7 604) Loader Magazine Grinder ID - ADMINHEPATIC FUNCTION [id number] 05:16:00 Test Item Value Reference Range Interpretation Comments TOTAL PROTEIN (BEAKER) (test code = 4.6 gm/dL 6.0-8.3 L 770) ALBUMIN (BEAKER) (test code = 1145) 2.4 g/dL 3.5-5.0 L BILIRUBIN TOTAL (BEAKER) (test code 0.4 mg/dL 0.2-1.2 = 377) BILIRUBIN DIRECT (BEAKER) (test 0.2 mg/dL 0.1-0.5 code = 706) ALKALINE PHOSPHATASE (BEAKER) (test 71 U/L 40-150 code = 346) AST (SGOT) (BEAKER) (test code = 74 U/L 5-34 H 353) ALT (SGPT) (BEAKER) (test code = 168 U/L 6-55 H 347) Loader Magazine Grinder ID - ADMINCBC W/PLT COUNT & AUTO [id number] 05:05:00 Test Item Value Reference Range Interpretation Comments WHITE BLOOD CELL COUNT (BEAKER) 17.0 K/ L 3.5-10.5 H (test code = 775) RED BLOOD CELL COUNT (BEAKER) 3.67 M/ L 4.63-6.08 L (test code = 761) HEMOGLOBIN (BEAKER) (test code = 11.6 GM/DL 13.7-17.5 L 410) HEMATOCRIT (BEAKER) (test code = 34.9 % 40.1-51.0 L 411) MEAN CORPUSCULAR VOLUME (BEAKER) 95.1 fL 79.0-92.2 H (test code = 753) MEAN CORPUSCULAR HEMOGLOBIN 31.6 pg 25.7-32.2 (BEAKER) (test code = 751) MEAN CORPUSCULAR HEMOGLOBIN CONC 33.2 GM/DL 32.3-36.5 (BEAKER) (test code = 752) RED CELL DISTRIBUTION WIDTH 12.9 % 11.6-14.4 (BEAKER) (test code = 412) PLATELET COUNT (BEAKER) (test 298 K/CU MM 150-450 code = 756) MEAN PLATELET VOLUME (BEAKER) 11.4 fL 9.4-12.4 (test code = 754) NUCLEATED RED BLOOD CELLS 0 /100 WBC 0-0 (BEAKER) (test code = 413) NEUTROPHILS RELATIVE PERCENT 87 % (BEAKER) (test code = 429) LYMPHOCYTES RELATIVE PERCENT 6 % (BEAKER) (test code = 430) MONOCYTES RELATIVE PERCENT 4 % (BEAKER) (test code = 431) EOSINOPHILS RELATIVE PERCENT 0 % (BEAKER) (test code = 432) BASOPHILS RELATIVE PERCENT 0 % (BEAKER) (test code = 437) NEUTROPHILS ABSOLUTE COUNT 14.73 K/ L 1.78-5.38 H (BEAKER) (test code = 670) LYMPHOCYTES ABSOLUTE COUNT 1.03 K/ L 1.32-3.57 L (BEAKER) (test code = 414) MONOCYTES ABSOLUTE COUNT (BEAKER) 0.71 K/ L 0.30-0.82 (test code = 415) EOSINOPHILS ABSOLUTE COUNT 0.03 K/ L 0.04-0.54 L (BEAKER) (test code = 416) BASOPHILS ABSOLUTE COUNT (BEAKER) 0.02 K/ L 0.01-0.08 (test code = 417) IMMATURE GRANULOCYTES-RELATIVE 3 % 0-1 H PERCENT (BEAKER) (test code = 2801) CALCIUM, [id number] 04:52:00 Test Item Value Reference Range Interpretation Comments CALCIUM IONIZED (BEAKER) (test 1.08 mmol/L 1.12-1.27 L code = 698) PH, BLOOD (BEAKER) (test code = 7.50 1810) [id number] 04:50:00 Test Item Value Reference Range Interpretation Comments PARTIAL THROMBOPLASTIN TIME 98.9 seconds 22.5-36.0 H (BEAKER) (test code = 760) BLOOD GAS, [id number] 04:40:00 Test Item Value Reference Range Interpretation Comments PH ARTERIAL (BEAKER) (test code = 7.51 7.35-7.45 H 383) PCO2 ARTERIAL (BEAKER) (test code 37 mm Hg 35-45 = 384) PO2 ARTERIAL (BEAKER) (test code = 208 mm Hg 80-90 H 385) O2 SATURATION ARTERIAL (BEAKER) 99.5 % 96.0-97.0 H (test code = 386) HCO3 ARTERIAL (BEAKER) (test code 29 mmol/L 21-29 = 388) BASE EXCESS ARTERIAL (BEAKER) 5.4 mmol/L -2.0-3.0 H (test code = 387) PATIENT TEMPERATURE (BEAKER) (test 36.9 code = 1818) FIO2 (BEAKER) (test code = 1819) 50.0 RAD, CHEST, 1 VIEW, NON [id number] 02:22:00Reason for exam:->resp evalShould this be performed at the bedside?->Yes [facility] 1935 Sex: MFINAL REPORT CLINICAL INDICATION: Support lines. Comparison: 020 The cardiomediastinal contours are stable. Central pulmonary vascular congestion and bilateral parenchymal and pleural opacities are unchanged. There is no pneumothorax. A left chest tube has been removed. Remaining support lines are stable. Signed: Salima Miller MDReport Verified Date/Time: 02/14/2020 02:22:04 [id number] 01:14:00 Test Item Value Reference Range Interpretation Comments PARTIAL THROMBOPLASTIN TIME 108.8 seconds 22.5-36.0 H (BEAKER) (test code = 760) [id number] 01:00:00 Test Item Value Reference Range Interpretation Comments MAGNESIUM (BEAKER) (test code = 2.1 mg/dL 1.6-2.6 627) Loader Magazine Grinder ID - [facility]IAYA [facility] Serum Potassium level 2 hours after oral potassium replacement completed or 30 min after intravenous potassium replacement. [id number] 01:00:00 Test Item Value Reference Range Interpretation Comments PHOSPHORUS (BEAKER) (test code = 2.3 mg/dL 2.3-4.7 604) Loader Magazine Grinder ID - PIAYA [facility] Serum Potassium level 2 hours after oral potassium replacement completed or 30 min after intravenous potassium replacement. [id number] 01:00:00 Test Item Value Reference Range Interpretation Comments POTASSIUM (BEAKER) (test code = 3.4 meq/L 3.5-5.1 L 379) Loader Magazine Grinder ID - PIAYA [facility] Serum Potassium level 2 hours after oral potassium replacement completed or 30 min after intravenous potassium replacement.POCT- GLUCOSE [id number] 00:46:00 Test Item Value Reference Range Interpretation Comments POC-GLUCOSE METER 133 mg/dL 70-110 H : TESTED A T [facility] 6720 (BEAKER) (test code [facility], = 1538) [address]: Loader Magazine Grinder/Techni martin ID = [id number] for SUZIE GREGORY BLOOD GAS, [id number] 19:17:00 Test Item Value Reference Range Interpretation Comments PH ARTERIAL (BEAKER) (test code = 7.55 7.35-7.45 H 383) PCO2 ARTERIAL (BEAKER) (test code 31 mm Hg 35-45 L = 384) PO2 ARTERIAL (BEAKER) (test code = 128 mm Hg 80-90 H 385) O2 SATURATION ARTERIAL (BEAKER) 98.9 % 96.0-97.0 H (test code = 386) HCO3 ARTERIAL (BEAKER) (test code 27 mmol/L 21-29 = 388) BASE EXCESS ARTERIAL (BEAKER) 4.7 mmol/L -2.0-3.0 H (test code = 387) PATIENT TEMPERATURE (BEAKER) (test 37.5 code = 1818) FIO2 (BEAKER) (test code = 1819) 50.0 [id number] 18:55:00 Test Item Value Reference Range Interpretation Comments PROTIME (BEAKER) (test code = 15.9 seconds 11.9-14.2 H 759) INR (BEAKER) (test code = 370) 1.31 <=5.90 PARTIAL THROMBOPLASTIN TIME 66.0 seconds 22.5-36.0 H (BEAKER) (test code = 760) Effective 09/08/2018: PT Reference Range ChangeNew: 11.9-14.2 Previous: 11.7- 14.7RECOMMENDED COUMADIN/WARFARIN INR THERAPY RANGESSTANDARD DOSE: 2.0-3.0 Includes: PROPHYLAXIS for venous thrombosis, systemic embolization; TREATMENT for venous thrombosis and/or pulmonary embolus.HIGH RISK: Target INR is2.5-3.5 for patients wiht mechanical heart valves.POCT-GLUCOSE [id number] 17:50:00 Test Item Value Reference Range Interpretation Comments POC-GLUCOSE METER 135 mg/dL 70-110 H : TESTED A T [facility] 6720 (BEAKER) (test code = [place], 1538) [address]: Loader Magazine Grinder/Techni martin ID = [id number] for MEENU HASKINS [id number] 12:32:00 Test Item Value Reference Range Interpretation Comments Amylase (test code = 26 U/L 25-125 1798-8) JUDI (test code = JUDI) Loader Magazine Grinder ID Joon Rodrigues Lab Interpretation (test Normal code = 90032-9) [facility] 12:32[facility]00 Test Item Value Reference Range Interpretation Comments Lipase (test code = 17 U/L 878 3040-3) JUDI (test code = JUDI) Loader Magazine Grinder ID Joon Rodrigues Lab Interpretation (test Normal code = 03824-7) [facility]iglycerides2020-[facility] 12:32:00 Test Item Value Reference Range Interpretation Comments Triglycerides (test 115 mg/dL code = 2571-8) JUDI (test code = JUDI) TRIGLYCERIDE REFERENCE RANGELow Risk <150Borderline Risk 150-199High Risk 200-499Very High Risk >=500Operator XIMENA Rodrigues [facility] HospitalAMYLASE2020-11-02 12:32:00 Test Item Value Reference Range Interpretation Comments AMYLASE (BEAKER) (test code = 349) 26 U/L 25-125 Loader Magazine Grinder ID Joon LINCOLN [id number] 12:32:00 Test Item Value Reference Range Interpretation Comments TRIGLYCERIDES (BEAKER) (test code = 115 mg/dL 540) TRIGLYCERIDE REFERENCE RANGELow Risk <150Borderline Risk 150-199High Risk 200-499Very High Risk>=500Operator XIMENA LINCOLN [id number] 12:32:00 Test Item Value Reference Range Interpretation Comments LIPASE (BEAKER) (test code = 749) 17 U/L 8-78 Loader Magazine Grinder XIMENA LINCOLN [id number] 12:26:00 Test Item Value Reference Range Interpretation Comments PROTIME (BEAKER) (test code = 16.4 seconds 11.9-14.2 H 759) INR (BEAKER) (test code = 370) 1.36 <=5.90 PARTIAL THROMBOPLASTIN TIME 67.1 seconds 22.5-36.0 H (BEAKER) (test code = 760) Effective 09/08/2018: PT Reference Range ChangeNew: 11.9-14.2 Previous: 11.7- 14.7RECOMMENDED COUMADIN/WARFARIN INR THERAPY RANGESSTANDARD DOSE: 2.0-3.0 Includes: PROPHYLAXIS for venous thrombosis, systemic embolization; TREATMENT for venous thrombosis and/or pulmonary embolus.HIGH RISK: Target INR is2.5-3.5 for patients wiht mechanical heart valves.POCT-GLUCOSE [id number] 12:09:00 Test Item Value Reference Range Interpretation Comments POC-GLUCOSE METER 134 mg/dL 70-110 H : TESTED A T [facility] 6720 (BEAKER) (test code = [place], 1538) [address]: Loader Magazine Grinder/Techni martin ID = [id number] for MEENU HASKINS Peripheral Blood Smear - Path [id number] 11:54:00 Test Item Value Reference Range Interpretation Comments WBC Morphology (test Toxic Granulation code = 2847) Pathologist Review Cell counts confirmed. (test code = 2640) Pathologist: (test code Jennifer Oleary M.D. = 2849) (electronic signature) [facility] - PATHOLOGIST REVIEW 2020-02-13 11:54:00 Test Item Value Reference Range Interpretation Comments WBC MORPHOLOGY Toxic Granulation (BEAKER) (test code = 2847) PERIPHERAL SMR REVIEW Cell counts confirmed. (BEAKER) (test code = 2640) [id number] Jennifer Oleary M.D. (BEAKER) (test code = (electronic signature) 2849) CT, BRAIN, WITHOUT [id number] 11:19:00Unlisted Reason for Exam - Click Yes and Enter Reason Below->No [facility] 1935 Sex: MFINAL REPORT CT, BRAIN, WITHOUT CONTRAST CLINICAL INDICATION: Intra cranial hemorrhage, follow up COMPARISON: February 10, 2020 TECHNIQUE: Noncontrast axial CT imaging of the brain and skull. DOSE REDUCTION: Dose modulation, iterative reconstruction, and/or weight-based adjustment of the mA/kV was utilized to reduce the radiation dose to as low as reasonably achievable. FINDINGS:No interval infarct is identified. Small volume subarachnoid blood demonstrates similar distribution to the prior examination. Intraventricular component is unchanged. Ventricular volumes are slightly increased from the prior exam. The midline remains normally positioned. Osseous structures are intact. IMPRESSION: Slight increase in overall ventricular volume with stable total subarachnoid hemorrhage volume with intraventricular extension. No midline shift. Signed: JR Patrick Robert MDReport Verified Date/Time: 02/13/2020 11:19:12 Reading Location: [address] Neuro Reading Room -GLUCOSE [id number] 06:38:00 Test Item Value Reference Range Interpretation Comments POC-GLUCOSE METER 124 mg/dL 70-110 H : TESTED A T [facility] 6720 (BEAKER) (test code = [place], 1538) [address]: Loader Magazine Grinder/Techni martin ID = [id number] for STANFORD BORREGO [id number] 05:27:00 Test Item Value Reference Range Interpretation Comments PARTIAL THROMBOPLASTIN TIME 63.3 seconds 22.5-36.0 H (BEAKER) (test code = 760) BASIC METABOLIC [id number] 05:24:00 Test Item Value Reference Range Interpretation Comments SODIUM (BEAKER) 144 meq/L 136-145 (test code = 381) POTASSIUM (BEAKER) 3.2 meq/L 3.5-5.1 L (test code = 379) CHLORIDE (BEAKER) 107 meq/L 98-107 (test code = 382) CO2 (BEAKER) (test 27 meq/L 22-29 code = 355) BLOOD UREA NITROGEN 26 mg/dL 7-21 H (BEAKER) (test code = 354) CREATININE (BEAKER) 0.60 mg/dL 0.57-1.25 (test code = 358) GLUCOSE RANDOM 158 mg/dL 70-105 H (BEAKER) (test code = 652) CALCIUM (BEAKER) 8.0 mg/dL 8.4-10.2 L (test code = 697) EGFR (BEAKER) (test 129 mL/min/1.73 ESTIM ATED GFR IS code = 1092) sq m NOT ACCURATE CREATININE CLEARANCE IN PREDICTING GLOMERULAR FILTRATION RATE . ESTIMATED GFR I S NOT APPLICABLE FOR DIALYSIS PATIEN TS. Loader Magazine Grinder ID - [id number] 05:24:00 Test Item Value Reference Range Interpretation Comments MAGNESIUM (BEAKER) (test code = 1.8 mg/dL 1.6-2.6 627) Loader Magazine Grinder ID - [id number] 05:24:00 Test Item Value Reference Range Interpretation Comments PHOSPHORUS (BEAKER) (test code = 1.9 mg/dL 2.3-4.7 L 604) Loader Magazine Grinder ID - EDASIHEPATIC FUNCTION [id number] 05:24:00 Test Item Value Reference Range Interpretation Comments TOTAL PROTEIN (BEAKER) (test code = 4.8 gm/dL 6.0-8.3 L 770) ALBUMIN (BEAKER) (test code = 1145) 2.4 g/dL 3.5-5.0 L BILIRUBIN TOTAL (BEAKER) (test code 0.5 mg/dL 0.2-1.2 = 377) BILIRUBIN DIRECT (BEAKER) (test 0.3 mg/dL 0.1-0.5 code = 706) ALKALINE PHOSPHATASE (BEAKER) (test 74 U/L 40-150 code = 346) AST (SGOT) (BEAKER) (test code = 111 U/L 5-34 H 353) ALT (SGPT) (BEAKER) (test code = 172 U/L 6-55 H 347) [employer] ID - EDASICBC W/PLT COUNT & AUTO [id number] 05:08:00 Test Item Value Reference Range Interpretation Comments WHITE BLOOD CELL COUNT (BEAKER) 18.6 K/ L 3.5-10.5 H (test code = 775) RED BLOOD CELL COUNT (BEAKER) 3.79 M/ L 4.63-6.08 L (test code = 761) HEMOGLOBIN (BEAKER) (test code = 12.0 GM/DL 13.7-17.5 L 410) HEMATOCRIT (BEAKER) (test code = 36.3 % 40.1-51.0 L 411) MEAN CORPUSCULAR VOLUME (BEAKER) 95.8 fL 79.0-92.2 H (test code = 753) MEAN CORPUSCULAR HEMOGLOBIN 31.7 pg 25.7-32.2 (BEAKER) (test code = 751) MEAN CORPUSCULAR HEMOGLOBIN CONC 33.1 GM/DL 32.3-36.5 (BEAKER) (test code = 752) RED CELL DISTRIBUTION WIDTH 12.8 % 11.6-14.4 (BEAKER) (test code = 412) PLATELET COUNT (BEAKER) (test 292 K/CU MM 150-450 code = 756) MEAN PLATELET VOLUME (BEAKER) 11.9 fL 9.4-12.4 (test code = 754) NUCLEATED RED BLOOD CELLS 0 /100 WBC 0-0 (BEAKER) (test code = 413) NEUTROPHILS RELATIVE PERCENT 90 % (BEAKER) (test code = 429) LYMPHOCYTES RELATIVE PERCENT 4 % (BEAKER) (test code = 430) MONOCYTES RELATIVE PERCENT 4 % (BEAKER) (test code = 431) EOSINOPHILS RELATIVE PERCENT 0 % (BEAKER) (test code = 432) BASOPHILS RELATIVE PERCENT 0 % (BEAKER) (test code = 437) NEUTROPHILS ABSOLUTE COUNT 16.73 K/ L 1.78-5.38 H (BEAKER) (test code = 670) LYMPHOCYTES ABSOLUTE COUNT 0.79 K/ L 1.32-3.57 L (BEAKER) (test code = 414) MONOCYTES ABSOLUTE COUNT (BEAKER) 0.68 K/ L 0.30-0.82 (test code = 415) EOSINOPHILS ABSOLUTE COUNT 0.02 K/ L 0.04-0.54 L (BEAKER) (test code = 416) BASOPHILS ABSOLUTE COUNT (BEAKER) 0.04 K/ L 0.01-0.08 (test code = 417) IMMATURE GRANULOCYTES-RELATIVE 2 % 0-1 H PERCENT (BEAKER) (test code = 2801) CALCIUM, [id number] 03:35:00 Test Item Value Reference Range Interpretation Comments CALCIUM IONIZED (BEAKER) (test 1.06 mmol/L 1.12-1.27 L code = 698) PH, BLOOD (BEAKER) (test code = 7.54 1810) BLOOD GAS, [id number] 03:35:00 Test Item Value Reference Range Interpretation Comments PH ARTERIAL (BEAKER) (test code = 7.53 7.35-7.45 H 383) PCO2 ARTERIAL (BEAKER) (test code 36 mm Hg 35-45 = 384) PO2 ARTERIAL (BEAKER) (test code = 160 mm Hg 80-90 H 385) O2 SATURATION ARTERIAL (BEAKER) 99.2 % 96.0-97.0 H (test code = 386) HCO3 ARTERIAL (BEAKER) (test code 29 mmol/L 21-29 = 388) BASE EXCESS ARTERIAL (BEAKER) 6.5 mmol/L -2.0-3.0 H (test code = 387) PATIENT TEMPERATURE (BEAKER) (test 37.5 code = 1818) FIO2 (BEAKER) (test code = 1819) 55.0 RAD, CHEST, 1 VIEW, NON [id number] 02:53:00Reason for exam:->resp evalShould this be performed at the bedside?->Yes [facility] 1935 Sex: MFINAL REPORT CLINICAL INDICATION: Support lines. Comparison: 020 at 1359 hours The patient is rotated to the left. The cardiomediastinal contours are stable. Central pulmonary vascular prominence and bilateral parenchymal and pleural opacities are unchanged. There is no pneumothorax. Support lines are stable. Signed: Salima Miller MDReport Verified Date/Time: 04/14/2019 02:53:08 POCT-GLUCOSE [id number] 23:20:00 Test Item Value Reference Range Interpretation Comments POC-GLUCOSE METER 118 mg/dL 70-110 H : TESTED A T [facility] 6720 (BEAKER) (test code = [place], 1538) [address]: Loader Magazine Grinder/Techni martin ID = [id number] for STANFORD BORREGO LACTIC ACID, [id number] 22:24:00 Test Item Value Reference Range Interpretation Comments LACTATE BLOOD ARTERIAL (2) 1.0 mmol/L 0.5-2.2 ([facility]) (test code = 2874) Loader Magazine Grinder ID - [id number] 22:08:00 Test Item Value Reference Range Interpretation Comments PARTIAL THROMBOPLASTIN TIME 44.5 seconds 22.5-36.0 H (BEAKER) (test code = 760) POCT-GLUCOSE [id number] 18:11:00 Test Item Value Reference Range Interpretation Comments POC-GLUCOSE METER 133 mg/dL 70-110 H : [facility] (test code = [place] [facility], 1538) [address]: Loader Magazine Grinder/Techni martin ID = [id number] for TOMAS MARIE RAD, CHEST, 1 VIEW, NON [id number] 14:27:00Reason for exam:->Post procedureShould this be performed at the bedside?->Yes [facility] 1935 Sex: MFINAL REPORT TECHNIQUE: Frontal view of the chest. INDICATION: Post procedure COMPARISON: Earlier today. FINDINGS: LINES/TUBES: Endotracheal tube, feeding tube, right IJ central venous catheter and left pleural pigtail catheter are in appropriate position.. LUNGS: Persistent right-sided pleural effusion and basilar consolidation. No pneumothorax. There is interval improved aeration at the left lung base. HEART AND MEDIASTINUM: The cardiomediastinal silhouette is stable. SOFT TISSUES AND BONES: Unremarkable. IMPRESSION:Mild interval improved aeration at the left lung base. Otherwise no interval change.. Signed: Olya Thornton Verified Date/Time:02/12/2020 14:27:38 Reading Location: [facility] B1 C013Y CT Body Reading Room [id number] 14:22:00 Test Item Value Reference Range Interpretation Comments PARTIAL THROMBOPLASTIN TIME 29.8 seconds 22.5-36.0 (BEAKER) (test code = 760) SPUTUM CULTURE + GRAM [id number] 13:50:00 Test Item Value Reference Range Interpretation Comments CULTURE (BEAKER) 3+ Normal respiratory (test code = 1095) ricardo present GRAM STAIN RESULT 3+ WBCs (BEAKER) (test code = 1123) GRAM STAIN RESULT >25 epithelial cells (BEAKER) (test code = 09135) GRAM STAIN RESULT 1+ gram positive rods (BEAKER) (test code = 85935) GRAM STAIN RESULT <1+ yeast with (BEAKER) (test code pseudohyphae = 036867) POCT-GLUCOSE [id number] 13:23:00 Test Item Value Reference Range Interpretation Comments POC-GLUCOSE METER 126 mg/dL 70-110 H : [facility] (BE[facility]ER) (test code = [place], 1538) [address]: Loader Magazine Grinder/Techni martin ID = [id number] for [place] SAMANTHADamaris TOMAS CBC W/PLT COUNT & AUTO [id number] 08:08:00 Test Item Value Reference Range Interpretation Comments WHITE BLOOD CELL COUNT (BEAKER) 23.2 K/ L 3.5-10.5 H (test code = 775) RED BLOOD CELL COUNT (BEAKER) 3.79 M/ L 4.63-6.08 L (test code = 761) HEMOGLOBIN (BEAKER) (test code = 12.0 GM/DL 13.7-17.5 L 410) HEMATOCRIT (BEAKER) (test code = 36.7 % 40.1-51.0 L 411) MEAN CORPUSCULAR VOLUME (BEAKER) 96.8 fL 79.0-92.2 H (test code = 753) MEAN CORPUSCULAR HEMOGLOBIN 31.7 pg 25.7-32.2 (BEAKER) (test code = 751) MEAN CORPUSCULAR HEMOGLOBIN CONC 32.7 GM/DL 32.3-36.5 (BEAKER) (test code = 752) RED CELL DISTRIBUTION WIDTH 12.6 % 11.6-14.4 (BEAKER) (test code = 412) PLATELET COUNT (BEAKER) (test 279 K/CU MM 150-450 code = 756) MEAN PLATELET VOLUME (BEAKER) 12.0 fL 9.4-12.4 (test code = 754) NUCLEATED RED BLOOD CELLS 0 /100 WBC 0-0 (BEAKER) (test code = 413) (CELLAVISION MANUAL DIFF)2020-02-12 08:08:00 Test Item Value Reference Range Interpretation Comments NEUTROPHILS - REL 83 % (CELLAVISION)(BEAKER) (test code = 2816) LYMPHOCYTES - REL 7 % (CELLAVISION)(BEAKER) (test code = 2817) MONOCYTES - REL 2 % (CELLAVISION)(BEAKER) (test code = 2818) BANDS - REL (CELLAVISION)(BEAKER) 8 % 0-10 (test code = 2826) NEUTROPHILS - ABS 19.26 K/ul 1.78-5.38 H (CELLAVISION)(BEAKER) (test code = 2830) LYMPHOCYTES - ABS 1.62 K/ul 1.32-3.57 (CELLAVISION)(BEAKER) (test code = 2831) MONOCYTES - ABS 0.46 K/uL 0.30-0.82 (CELLAVISION)(BEAKER) (test code = 2832) BANDS - ABS (CELLAVISION)(BEAKER) 1.86 K/uL 0.00-0.80 H (test code = 2840) TOTAL COUNTED (BEAKER) (test code 100 = 1351) PLT MORPHOLOGY (BEAKER) (test code Normal = 486) SMUDGE CELLS (BEAKER) (test code = Present 1371) ANISOCYTOSIS (BEAKER) (test code = 1+ few 961) PLATELET CONCENTRATION Adequate (CELLAVISION)(BEAKER) (test code = 3438) Loader Magazine Grinder ID - Wheeler HuangUser comments: Slide comments:POCT-GLUCOSE [id number] 06:51:00 Test Item Value Reference Range Interpretation Comments POC-GLUCOSE METER 111 mg/dL 70-110 H : TESTED A T [facility] 6720 (BEAKER) (test code = [place], 1538) [address]: Loader Magazine Grinder/Techni martin ID = [id number] for STANFORD BORREGO [id number] 05:42:00 Test Item Value Reference Range Interpretation Comments PARTIAL THROMBOPLASTIN TIME 82.5 seconds 22.5-36.0 H (BEAKER) (test code = 760) BLOOD GAS, [id number] 04:56:00 Test Item Value Reference Range Interpretation Comments PH ARTERIAL (BEAKER) (test code = 7.52 7.35-7.45 H 383) PCO2 ARTERIAL (BEAKER) (test code 36 mm Hg 35-45 = 384) PO2 ARTERIAL (BEAKER) (test code = 201 mm Hg 80-90 H 385) O2 SATURATION ARTERIAL (BEAKER) 99.5 % 96.0-97.0 H (test code = 386) HCO3 ARTERIAL (BEAKER) (test code 29 mmol/L 21-29 = 388) BASE EXCESS ARTERIAL (BEAKER) 5.6 mmol/L -2.0-3.0 H (test code = 387) PATIENT TEMPERATURE (BEAKER) (test 37.2 code = 1818) FIO2 (BEAKER) (test code = 1819) 50.0 BASIC METABOLIC [id number] 04:47:00 Test Item Value Reference Range Interpretation Comments SODIUM (BEAKER) 146 meq/L 136-145 H (test code = 381) POTASSIUM (BEAKER) 3.5 meq/L 3.5-5.1 Specimen slightly (test code = 379) hemolyzed CHLORIDE (BEAKER) 111 meq/L 98-107 H (test code = 382) CO2 (BEAKER) (test 27 meq/L 22-29 code = 355) BLOOD UREA NITROGEN 29 mg/dL 7-21 H (BEAKER) (test code = 354) CREATININE (BEAKER) 0.61 mg/dL 0.57-1.25 Specimen slightly (test code = 358) hemolyzed GLUCOSE RANDOM 136 mg/dL 70-105 H (BEAKER) (test code = 652) CALCIUM (BEAKER) 7.9 mg/dL 8.4-10.2 L (test code = 697) EGFR (BEAKER) (test 126 mL/min/1.73 ESTIM ATED GFR IS code = 1092) sq m NOT ACCURATE CREATININE CLEARANCE IN PREDICTING GLOMERULAR FILTRATION RATE . ESTIMATED GFR I S NOT APPLICABLE FOR DIALYSIS PATIEN TS. Loader Magazine Grinder ID - EDASIHEPATIC FUNCTION [id number] 04:36:00 Test Item Value Reference Range Interpretation Comments TOTAL PROTEIN (BEAKER) 4.7 gm/dL 6.0-8.3 L Speci men slightly (test code = 770) hemolyzed ALBUMIN (BEAKER) (test 2.4 g/dL 3.5-5.0 L Speci men slightly code = 1145) hemolyzed BILIRUBIN TOTAL 0.4 mg/dL 0.2-1.2 Specimen sli ghtly (BEAKER) (test code = hemoly zed 377) BILIRUBIN DIRECT 0.2 mg/dL 0.1-0.5 Specimen sl ightly (BEAKER) (test code = hemoly zed 706) ALKALINE PHOSPHATASE 54 U/L 40-150 (BEAKER) (test code = 346) AST (SGOT) (BEAKER) 51 U/L 5-34 H Specimen slightly (test code = 353) hemolyzed ALT (SGPT) (BEAKER) 63 U/L 6-55 H Specimen slightly (test code = 347) hemolyzed Loader Magazine Grinder ID - EDASILACTIC ACID, [id number] 04:16:00 Test Item Value Reference Range Interpretation Comments LACTATE BLOOD ARTERIAL (2) 1.3 mmol/L 0.5-2.2 (BEAKER) (test code = 2874) Loader Magazine Grinder ID - EDASIPOCT-GLUCOSE [id number] 02:37:00 Test Item Value Reference Range Interpretation Comments POC-GLUCOSE METER 150 mg/dL 70-110 H : TESTED A T [facility] 6720 (BEAKER) (test code = [place], 1538) [address]: Loader Magazine Grinder/Techni martin ID = [id number] for AKHIONBARE, STAN[place] TH RAD, CHEST, 1 VIEW, NON [id number] 01:43:00Reason for exam:->resp evalShould this be performed at the bedside?->Yes [facility] 1935 Sex: MFINAL REPORT CLINICAL INDICATION: Support lines. Comparison: 2019 The cardiomediastinal contours are stable. Central pulmonary vascular congestion and bilateral parenchymal and pleural opacities are unchanged. There is no pneumothorax. Support lines are stable. Signed: Salima Miller MDReport Verified Date/Time: 02/12/2020 01:43:50 LACTIC ACID, [id number] 22:22:00 Test Item Value Reference Range Interpretation Comments LACTATE BLOOD ARTERIAL (2) 1.2 mmol/L 0.5-2.2 (BEAKER) (test code = 2874) Loader Magazine Grinder ID - [id number] 22:11:00 Test Item Value Reference Range Interpretation Comments PARTIAL THROMBOPLASTIN TIME 65.5 seconds 22.5-36.0 H (BEAKER) (test code = 760) BLOOD GAS, [id number] 22:03:00 Test Item Value Reference Range Interpretation Comments PH ARTERIAL (BEAKER) (test code = 7.50 7.35-7.45 H 383) PCO2 ARTERIAL (BEAKER) (test code 36 mm Hg 35-45 = 384) PO2 ARTERIAL (BEAKER) (test code = 117 mm Hg 80-90 H 385) O2 SATURATION ARTERIAL (BEAKER) 98.6 % 96.0-97.0 H (test code = 386) HCO3 ARTERIAL (BEAKER) (test code 28 mmol/L 21-29 = 388) BASE EXCESS ARTERIAL (BEAKER) 4.5 mmol/L -2.0-3.0 H (test code = 387) PATIENT TEMPERATURE (BEAKER) (test 36.7 code = 1818) FIO2 (BEAKER) (test code = 1819) 50.0 VANCOMYCIN LEVEL, [id number] 19:19:00 Test Item Value Reference Range Interpretation Comments VANCOMYCIN TROUGH (BEAKER) (test 10.0 ug/mL 10.0-20.0 code = 522) Loader Magazine Grinder ID - EDASIIf >20, hold fourth dose.If <15, alert MD.Thank you. POCT-GLUCOSE [id number] 19:02:00 Test Item Value Reference Range Interpretation Comments POC-GLUCOSE METER 145 mg/dL 70-110 H : TESTED A T [facility] 6720 (BEAKER) (test code = [place], 1538) [address]: Loader Magazine Grinder/Techni martin ID = [id number] for TOMAS MARIE West Nile antibodies (IgG, IgM)2020-02-11 16:16:00 Test Item Value Reference Range Interpretation Comments West Nile <1.30 Virus IgG (test code = 0048774) West Nile <0.90 REFERENCE RANGE : IgG Virus IgM <1.30 (test code = IgM 5104028) <0.90Interpreti ve Criteria: Ig G: <1.30 Anti body not detected 1.30 - 1.49 Equivocal >1.49 Anti body detected West Nile IgG antibodies are often not detec table untilday 4 or 5 of illness. In a patient who is IgM positivebut IgG negative, a convalescent ph ase specimen obtained7-14 da ys after the initi al specimen should be tested todocume nt IgG seroconversion. Inter pretive Criteri a: IgM: <0 .90 Antibody not detected 0.90 - 1.10 Equivocal >1.10 Anti body detected [place] virus (WNV) IgM is usually detecta ble inserum specime ns from WNV-infect ed patients at the timeof clinical presentation. Because serum I gM antibody mayper sist for more than a year in some patient s, its presencemay indicate WNV infection in th e previous year a nd beunrelated to the current clinica l presentation.An tibod ies induced by other flavivirus infections(e.g. Dengue virus, S t. Abisai encephali tis virus) mayshow cross-reactivit y with WNV. JUDI (test code Performing Lab = JUDI) *[facility]DID [facility] [address] [place] [address] Ramon Rebollar MD [facility]-31 14:41:00 Test Item Value Reference Range Interpretation Comments PARTIAL THROMBOPLASTIN TIME 106.3 seconds 22.5-36.0 H (BEAKER) (test code = 760) LACTIC ACID, [id number] 14:39:00 Test Item Value Reference Range Interpretation Comments LACTATE BLOOD 1.3 mmol/L 0.5-2.2 Specimen sligh tly ARTERIAL (2) (BEAKER) hemoly zed (test code = 2874) Loader Magazine Grinder ID - EDASIPOCT-GLUCOSE [id number] 14:30:00 Test Item Value Reference Range Interpretation Comments POC-GLUCOSE METER 153 mg/dL 70-110 H : TESTED A T [facility] 67[address] (BEAKER) (test code = [place], 1538) [address]: Loader Magazine Grinder/Techni martin ID = [id number] for TOMAS MARIE BLOOD GAS, [id number] 14:19:00 Test Item Value Reference Range Interpretation Comments PH ARTERIAL (BEAKER) (test code = 7.48 7.35-7.45 H 383) PCO2 ARTERIAL (BEAKER) (test code 39 mm Hg 35-45 = 384) PO2 ARTERIAL (BEAKER) (test code = 128 mm Hg 80-90 H 385) O2 SATURATION ARTERIAL (BEAKER) 98.8 % 96.0-97.0 H (test code = 386) HCO3 ARTERIAL (BEAKER) (test code 28 mmol/L 21-29 = 388) BASE EXCESS ARTERIAL (BEAKER) 4.0 mmol/L -2.0-3.0 H (test code = 387) PATIENT TEMPERATURE (BEAKER) (test 36.4 code = 1818) FIO2 (BEAKER) (test code = 1819) 50.0 CBC W/PLT COUNT & AUTO [id number] 14:12:00 Test Item Value Reference Range Interpretation Comments WHITE BLOOD CELL COUNT (BEAKER) 28.8 K/ L 3.5-10.5 H (test code = 775) RED BLOOD CELL COUNT (BEAKER) 4.14 M/ L 4.63-6.08 L (test code = 761) HEMOGLOBIN (BEAKER) (test code = 12.7 GM/DL 13.7-17.5 L 410) HEMATOCRIT (BEAKER) (test code = 40.1 % 40.1-51.0 411) MEAN CORPUSCULAR VOLUME (BEAKER) 96.9 fL 79.0-92.2 H (test code = 753) MEAN CORPUSCULAR HEMOGLOBIN 30.7 pg 25.7-32.2 (BEAKER) (test code = 751) MEAN CORPUSCULAR HEMOGLOBIN CONC 31.7 GM/DL 32.3-36.5 L (BEAKER) (test code = 752) RED CELL DISTRIBUTION WIDTH 12.4 % 11.6-14.4 (BEAKER) (test code = 412) PLATELET COUNT (BEAKER) (test 286 K/CU MM 150-450 code = 756) MEAN PLATELET VOLUME (BEAKER) 12.0 fL 9.4-12.4 (test code = 754) NUCLEATED RED BLOOD CELLS 0 /100 WBC 0-0 (BEAKER) (test code = 413) (CELLAVISION MANUAL DIFF)2020-02-11 14:12:00 Test Item Value Reference Range Interpretation Comments NEUTROPHILS - REL 93 % (CELLAVISION)(BEAKER) (test code = 2816) LYMPHOCYTES - REL 3 % (CELLAVISION)(BEAKER) (test code = 2817) MONOCYTES - REL 3 % (CELLAVISION)(BEAKER) (test code = 2818) ATYPICAL LYMPHOCYTES - REL 1 % 0-0 H (CELLAVISION)(BEAKER) (test code = 2829) NEUTROPHILS - ABS 26.78 K/ul 1.78-5.38 H (CELLAVISION)(BEAKER) (test code = 2830) LYMPHOCYTES - ABS 0.86 K/ul 1.32-3.57 L (CELLAVISION)(BEAKER) (test code = 2831) MONOCYTES - ABS 0.86 K/uL 0.30-0.82 H (CELLAVISION)(BEAKER) (test code = 2832) ATYPICAL LYMPHOCYTES - ABS 0.29 K/uL 0.00-0.00 H (CELLAVISION)(BEAKER) (test code = 2858) TOTAL COUNTED (BEAKER) (test code 100 = 1351) WBC MORPHOLOGY (BEAKER) (test code Normal = 487) LARGE PLT(BEAKER) (test code = Present 6) BASOPHILIC STIPPLING (BEAKER) Present (test code = 473) ARTIFACT (CELLAVISION)(BEAKER) Present (test code = 3432) PLATELET CONCENTRATION Adequate (CELLAVISION)(BEAKER) (test code = 3438) Loader Magazine Grinder ID - Mackenzie Brandon comments: Slide comments:BLOOD CULTURE 2020-02-11 14:01:00 Test Item Value Reference Range Interpretation Comments CULTURE (BEAKER) (test No growth in 5 days code = 1095) BLOOD [id number] 14:01:00 Test Item Value Reference Range Interpretation Comments CULTURE (BEAKER) (test No growth in 5 days code = 1095) POCT-GLUCOSE [id number] 13:51:00 Test Item Value Reference Range Interpretation Comments POC-GLUCOSE METER 201 mg/dL 70-110 H : TESTED A T [facility] 6720 (BEAKER) (test code = [facility], 1538) [address]: Loader Magazine Grinder/Techni martin ID = [id number] for [place] RELA, HORTENSIA POCT-GLUCOSE [id number] 13:49:00 Test Item Value Reference Range Interpretation Comments POC-GLUCOSE METER 211 mg/dL 70-110 H : TESTED A T [facility] 6720 (BEAKER) (test code = [facility], 1538) [address]: Loader Magazine Grinder/Techni martin ID = [id number] for [place] RELA, HORTENSIA 2D Echo W/Doppler(CW/PW/Color)2020-02-11 08:30:42Ejection FractionSLEH ECHO HEARTLAB MKCKESSON CPACSInterface, External Ris In - 02/11/2020 8:30 AM C DTTransthoracic Echocardiography Report (TTE) Demographics Patient Name ANAM PURI Date of Study 02/10/2020 GENE Gender Male Visit Number [id number] Race Unknown Room Number 7516 Number Date of 1935 Referring DANI Bean Physician GRETA Age 84 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(s) 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 Daija Hodges gladys RDCS Interpreting Edgard Raman MD Physician Fellow Austyn Cary MD Procedure Type of Study TTE procedure:2DECHO W DOPPLER(CW/PW/COLOR) (STAT) Indications:Shortness of breath.Clinical HistoryHIGH CHOLEST;PNEUMOTHORAX.Contrast Medium: Definity.Height: 71 inches Weight: 68.04 kg (150 lbs) BSA:1.87 m^2 BMI: 20.92 kg/m^2HR: 68 bpm BP: 111/63 mmHg Summary Very [...] Tissue Doppler E' Septal Velocity: 0.08 m/s E/E':4.94 E' Lateral Velocity: 0.11 m/s Aortic Valve Peak Velocity: 1.21 m/s Mean Velocity: 0.76 m/s Peak Gradient: 5.84 mmHg Mean Gradient: 2.62 mmHg AV VTI: 30.15 cm AV DVI: 0.83 LVOT Peak Velocity: 0.99 m/s Peak Gradient: 3.93 mmHg Mean Velocity: 0.66 m/s Mean Gradient: 2.05 mmHg LVOT VTI: 25.08 cm Tricuspid ValveCHI Hazel Hawkins Memorial [id number] 07:27:00 Test Item Value Reference Range Interpretation Comments PROCALCITONIN (BEAKER) (test code 0.37 ng/mL <0.05 H = 3036) SEPSIS RISK (ng/mL)Low: 0.05-0.50Intermediate: 0.51-2.00High: >=[id number] 07:21:00 Test Item Value Reference Range Interpretation Comments PARTIAL THROMBOPLASTIN TIME 84.4 seconds 22.5-36.0 H (BEAKER) (test code = 760) BASIC METABOLIC [id number] 05:06:00 Test Item Value Reference Range Interpretation Comments SODIUM (BEAKER) 144 meq/L 136-145 (test code = 381) POTASSIUM (BEAKER) 4.0 meq/L 3.5-5.1 (test code = 379) CHLORIDE (BEAKER) 111 meq/L 98-107 H (test code = 382) CO2 (BEAKER) (test 24 meq/L 22-29 code = 355) BLOOD UREA NITROGEN 32 mg/dL 7-21 H (BEAKER) (test code = 354) CREATININE (BEAKER) 0.68 mg/dL 0.57-1.25 (test code = 358) GLUCOSE RANDOM 234 mg/dL 70-105 H (BEAKER) (test code = 652) CALCIUM (BEAKER) 8.2 mg/dL 8.4-10.2 L (test code = 697) EGFR (BEAKER) (test 111 mL/min/1.73 ESTIM ATED GFR IS code = 1092) sq m NOT ACCURATE CREATININE CLEARANCE IN PREDICTING GLOMERULAR FILTRATION RATE . ESTIMATED GFR I S NOT APPLICABLE FOR DIALYSIS PATIEN TS. Loader Magazine Grinder ID - [id number] 05:06:00 Test Item Value Reference Range Interpretation Comments MAGNESIUM (BEAKER) (test code = 1.9 mg/dL 1.6-2.6 627) Loader Magazine Grinder ID - [id number] 05:06:00 Test Item Value Reference Range Interpretation Comments PHOSPHORUS (BEAKER) (test code = 2.7 mg/dL 2.3-4.7 604) Loader Magazine Grinder ID - EDASIHEPATIC FUNCTION [id number] 05:06:00 Test Item Value Reference Range Interpretation Comments TOTAL PROTEIN (BEAKER) (test code = 4.9 gm/dL 6.0-8.3 L 770) ALBUMIN (BEAKER) (test code = 1145) 2.6 g/dL 3.5-5.0 L BILIRUBIN TOTAL (BEAKER) (test code 0.6 mg/dL 0.2-1.2 = 377) BILIRUBIN DIRECT (BEAKER) (test 0.3 mg/dL 0.1-0.5 code = 706) ALKALINE PHOSPHATASE (BEAKER) (test 55 U/L 40-150 code = 346) AST (SGOT) (BEAKER) (test code = 18 U/L 5-34 353) ALT (SGPT) (BEAKER) (test code = 42 U/L 6-55 347) Loader Magazine Grinder ID - EDASILACTIC ACID, [id number] 04:52:00 Test Item Value Reference Range Interpretation Comments LACTATE BLOOD ARTERIAL (2) 1.0 mmol/L 0.5-2.2 (BEAKER) (test code = 2874) Loader Magazine Grinder ID - SUKHDEV MBLOOD GAS, [id number] 04:25:00 Test Item Value Reference Range Interpretation Comments PH ARTERIAL (BEAKER) (test code = 7.45 7.35-7.45 383) PCO2 ARTERIAL (BEAKER) (test code 41 mm Hg 35-45 = 384) PO2 ARTERIAL (BEAKER) (test code = 134 mm Hg 80-90 H 385) O2 SATURATION ARTERIAL (BEAKER) 98.8 % 96.0-97.0 H (test code = 386) HCO3 ARTERIAL (BEAKER) (test code 28 mmol/L 21-29 = 388) BASE EXCESS ARTERIAL (BEAKER) 3.6 mmol/L -2.0-3.0 H (test code = 387) PATIENT TEMPERATURE (BEAKER) (test 37.2 code = 1818) FIO2 (BEAKER) (test code = 1819) 60.0 RAD, CHEST, 1 VIEW, NON [id number] 03:06:00Reason for exam:->resp evalShould this be performed at the bedside?->Yes [facility] 1935 Sex: MFINAL REPORT CLINICAL INDICATION: Support lines. Comparison: 2019 at 2211 hours The patient is rotated to the left. The cardiomediastinal contours are stable. The lung volumes are low. Central pulmonary vascular congestion and bilateral parenchymal and pleural opacities are similar within variation of acquisition technique. There is no pneumothorax. Support lines are stable. Signed: Salima Miller MDReport Verified Date/Time: 02/11/2020 03:06:03 APTT 2020-02-11 01:08:00 Test Item Value Reference Range Interpretation Comments PARTIAL THROMBOPLASTIN TIME 64.7 seconds 22.5-36.0 H (BEAKER) (test code = 760) BLOOD GAS, [id number] 23:51:00 Test Item Value Reference Range Interpretation Comments PH ARTERIAL (BEAKER) (test code = 7.49 7.35-7.45 H 383) PCO2 ARTERIAL (BEAKER) (test code 38 mm Hg 35-45 = 384) PO2 ARTERIAL (BEAKER) (test code = 169 mm Hg 80-90 H 385) O2 SATURATION ARTERIAL (BEAKER) 99.3 % 96.0-97.0 H (test code = 386) HCO3 ARTERIAL (BEAKER) (test code 28 mmol/L 21-29 = 388) BASE EXCESS ARTERIAL (BEAKER) 4.7 mmol/L -2.0-3.0 H (test code = 387) PATIENT TEMPERATURE (BEAKER) (test 36.7 code = 1818) FIO2 (BEAKER) (test code = 1819) 60.0 RAD, CHEST, 1 VIEW, NON [id number] 23:13:00Reason for exam:->s/p RIJ central line placementShould this be performed at the bedside?->Yes [facility] : 1935 Sex: MFINAL REPORT RAD, CHEST, 1 VIEW, NON DEPT TECHNIQUE: Frontal view of the chest. INDICATION: s/p RIJ central line placement. COMPARISON: 02/10/2020 at 1430 hours FINDINGS/IMPRESSION: Lines/Tubes: Right transjugular catheter, tip at the mid to upper SVC. Unchanged endotracheal and transesophageal tubes. Unchanged left-sided chest tube. Lungs/pleura: No convincing changein bilateral parenchymal opacities. No convincing change in bilateral pleural effusions. No pneumothorax. Heart and Mediastinum: Unchanged. Soft Tissues and Bones: Unchanged. Signed: [place] Alexander Verified Date/Time: 02/10/2020 23:13:50 Reading Location: [address] Transitional Reading Room Central [id number] 22:45:24 Yoli Gallagher NP 02/10/2020 10:47 PMCentral Line Date/Time: 02/10/2020 10:45 PMPerformed by: Yoli Gallagher NPAuthorized by: Yoli Gallagher NP Consent: Written consent obtained.Risks and benefits: risks, benefits and alternatives were discussedConsent given by: spouseProcedure consent: procedure consent matches procedure scheduledRelevant documents: relevant documents present and verifiedTest results: test results available and properly labeledSite marked: the operative site was markedImaging studies: imaging studies availablePatient identity confirmed: arm band, provided demographic data and hospital-assigned identification numberTime out: Immediately prior to procedure a "time out" was called to verify the correct patient, procedure, equipment, telecommunications support and site/side marked as required.Indications: vascular accessAnesthesia: local infiltration Anesthesia: Local Anesthetic: lidocaine 1% without epinephrineAnesthetic total: 1 mL Sedation:Patient sedated: yes Preparation: skin prepped with 2% chlorhexidineSkin prep agent dried: skin prep agent completely dried prior to procedureSterile barriers: all five maximum sterile barriers used - cap, mask, sterile gown, sterile gloves, and large sterile sheetHand hygiene: hand hygiene performed prior to central venous catheter insertionLocation details: right internal jugularPatient position: flatCatheter type: triple lumenPre-procedure: landmarks identifiedUltrasound guidance: yesSterile ultrasound techniques: s terile gel and sterile probe covers were usedNumber of attempts: 1Successful placement: yesPost-procedure: line sutured and dressing appliedAssessment: blood return through all ports, free fluid flow, placement verified by x-ray and no pneumothorax on x-rayImmediate Post-Procedure Note Date/Time: 02/10/2020 10:30 PMAssistants to the procedure: NonePre-procedure diagnosis: Septic shockPost-procedurediagnosis: Septic shockProcedures Performed: Central LineSpecimens removed: NoneEstimated blood loss(mL): NoneComplications: NoneType of anesthesia: NoneGrafts or Implants: NoneCHI Hazel Hawkins Memorial HospitalLACTIC ACID, [id number] 21:05:00 Test Item Value Reference Range Interpretation Comments LACTATE BLOOD 1.1 mmol/L 0.5-2.2 Specimen sligh tly ARTERIAL (2) (BEAKER) hemoly zed (test code = 2874) Loader Magazine Grinder ID - DBBLOOD GAS, [id number] 20:48:00 Test Item Value Reference Range Interpretation Comments PH ARTERIAL (BEAKER) (test code = 7.53 7.35-7.45 H 383) PCO2 ARTERIAL (BEAKER) (test code 34 mm Hg 35-45 L = 384) PO2 ARTERIAL (BEAKER) (test code = 155 mm Hg 80-90 H 385) O2 SATURATION ARTERIAL (BEAKER) 99.2 % 96.0-97.0 H (test code = 386) HCO3 ARTERIAL (BEAKER) (test code 28 mmol/L 21-29 = 388) BASE EXCESS ARTERIAL (BEAKER) 5.1 mmol/L -2.0-3.0 H (test code = 387) PATIENT TEMPERATURE (BEAKER) (test 37.2 code = 1818) FIO2 (BEAKER) (test code = 1819) 60.0 [id number] 18:49:00 Test Item Value Reference Range Interpretation Comments PROCALCITONIN (BEAKER) (test code 0.37 ng/mL <0.05 H = 3036) SEPSIS RISK (ng/mL)Low: 0.05-0.50Intermediate: 0.51-2.00High: >=2.01(CELLAVISION MANUAL DIFF)2020-02-10 18:31:00 Test Item Value Reference Range Interpretation Comments NEUTROPHILS - REL 91 % (CELLAVISION)(BEAKER) (test code = 2816) LYMPHOCYTES - REL 3 % (CELLAVISION)(BEAKER) (test code = 2817) MONOCYTES - REL 2 % (CELLAVISION)(BEAKER) (test code = 2818) BANDS - REL (CELLAVISION)(BEAKER) 3 % 0-10 (test code = 2826) ATYPICAL LYMPHOCYTES - REL 1 % 0-0 H (CELLAVISION)(BEAKER) (test code = 2829) NEUTROPHILS - ABS 29.94 K/ul 1.78-5.38 H (CELLAVISION)(BEAKER) (test code = 2830) LYMPHOCYTES - ABS 0.99 K/ul 1.32-3.57 L (CELLAVISION)(BEAKER) (test code = 2831) MONOCYTES - ABS 0.66 K/uL 0.30-0.82 (CELLAVISION)(BEAKER) (test code = 2832) BANDS - ABS (CELLAVISION)(BEAKER) 0.99 K/uL 0.00-0.80 H (test code = 2840) ATYPICAL LYMPHOCYTES - ABS 0.33 K/uL 0.00-0.00 H (CELLAVISION)(BEAKER) (test code = 2858) TOTAL COUNTED (BEAKER) (test code 100 = 1351) WBC MORPHOLOGY (BEAKER) (test Normal code = 487) PLT MORPHOLOGY (BEAKER) (test Normal code = 486) ANISOCYTOSIS (BEAKER) (test code 1+ few = 961) MICROCYTES (BEAKER) (test code = 1+ few 965) POIKILOCYTES (BEAKER) (test code 2+ moderate = 966) SPHEROCYTES (BEAKER) (test code = 1+ few 768) ELLIPTOCYTES (BEAKER) (test code 1+ few = 962) PLATELET CONCENTRATION Adequate (CELLAVISION)(BEAKER) (test code = 3438) Loader Magazine Grinder ID - EduardoMark comments: Slide comments:TROPONIN [id number] 18:21:00 Test Item Value Reference Range Interpretation Comments TROPONIN I (BEAKER) (test code = 0.01 ng/mL 0.00-0.03 397) Troponin I (TnI) levels must be interpreted in the context of the presenting symptoms and the clinical findings. Elevated TnI levels indicate myocardial damage, but are not specific for ischemic heart disease. Elevated TnI levels are seen in patients with other cardiac conditions (including myocarditis and congestive heart failure), and slight TnI elevations occur in patients with other conditions, including sepsis, renal failure, acidosis, acute neurological disease, and persistent tachyarrhythmia.Loader Magazine Grinder ID - BSCOMPREHENSIVE METABOLIC [id number] 18:14:00 Test Item Value Reference Range Interpretation Comments TOTAL PROTEIN 4.9 gm/dL 6.0-8.3 L (BEAKER) (test code = 770) ALBUMIN (BEAKER) 2.6 g/dL 3.5-5.0 L (test code = 1145) ALKALINE PHOSPHATASE 50 U/L 40-150 (BEAKER) (test code = 346) BILIRUBIN TOTAL 0.8 mg/dL 0.2-1.2 (BEAKER) (test code = 377) SODIUM (BEAKER) (test 144 meq/L 136-145 code = 381) POTASSIUM (BEAKER) 4.1 meq/L 3.5-5.1 (test code = 379) CHLORIDE (BEAKER) 108 meq/L 98-107 H (test code = 382) CO2 (BEAKER) (test 28 meq/L 22-29 code = 355) BLOOD UREA NITROGEN 36 mg/dL 7-21 H (BEAKER) (test code = 354) CREATININE (BEAKER) 0.72 mg/dL 0.57-1.25 (test code = 358) GLUCOSE RANDOM 162 mg/dL 70-105 H (BEAKER) (test code = 652) CALCIUM (BEAKER) 8.3 mg/dL 8.4-10.2 L (test code = 697) AST (SGOT) (BEAKER) 16 U/L 5-34 (test code = 353) ALT (SGPT) (BEAKER) 47 U/L 6-55 (test code = 347) EGFR (BEAKER) (test 104 ESTIMATE D GFR IS code = 1092) mL/min/1.73 sq NOT ACCURA TE m CREATININE CLEARANCE IN PREDICTING GLOMERULAR FILTRATION RATE . ESTIMATED GFR I S NOT APPLICABLE FOR DIALYSIS PATIEN TS. Loader Magazine Grinder ID - BSHEPATIC FUNCTION [id number] 18:14:00 Test Item Value Reference Range Interpretation Comments TOTAL PROTEIN (BEAKER) (test code = 4.9 gm/dL 6.0-8.3 L 770) ALBUMIN (BEAKER) (test code = 1145) 2.6 g/dL 3.5-5.0 L BILIRUBIN TOTAL (BEAKER) (test code 0.8 mg/dL 0.2-1.2 = 377) BILIRUBIN DIRECT (BEAKER) (test 0.4 mg/dL 0.1-0.5 code = 706) ALKALINE PHOSPHATASE (BEAKER) (test 50 U/L 40-150 code = 346) AST (SGOT) (BEAKER) (test code = 16 U/L 5-34 353) ALT (SGPT) (BEAKER) (test code = 47 U/L 6-55 347) Loader Magazine Grinder ID - [id number] 18:11:00 Test Item Value Reference Range Interpretation Comments PARTIAL THROMBOPLASTIN TIME 29.7 seconds 22.5-36.0 (BEAKER) (test code = 760) PROTHROMBIN TIME/[id number] 18:10:00 Test Item Value Reference Range Interpretation Comments PROTIME (BEAKER) (test code = 17.7 seconds 11.9-14.2 H 759) INR (BEAKER) (test code = 370) 1.50 <=5.90 Effective 09/08/2018: PT Reference Range ChangeNew: 11.9-14.2 Previous: 11.7- 14.7RECOMMENDED COUMADIN/WARFARIN INR THERAPY RANGESSTANDARD DOSE: 2.0-3.0 Includes: PROPHYLAXIS for venous thrombosis, systemic embolization; TREATMENT for venous thrombosis and/or pulmonary embolus.HIGH RISK: Target INR is2.5-3.5 for patients wiht mechanical heart valves.BLOOD GAS, [id number] 18:07:00 Test Item Value Reference Range Interpretation Comments PH ARTERIAL (BEAKER) (test code = 7.51 7.35-7.45 H 383) PCO2 ARTERIAL (BEAKER) (test code 38 mm Hg 35-45 = 384) PO2 ARTERIAL (BEAKER) (test code = 71 mm Hg 80-90 L 385) O2 SATURATION ARTERIAL (BEAKER) 94.2 % 96.0-97.0 L (test code = 386) HCO3 ARTERIAL (BEAKER) (test code 29 mmol/L 21-29 = 388) BASE EXCESS ARTERIAL (BEAKER) 6.4 mmol/L -2.0-3.0 H (test code = 387) PATIENT TEMPERATURE (BEAKER) (test 39.0 code = 1818) FIO2 (BEAKER) (test code = 1819) 40.0 LACTIC ACID, [id number] 18:00:00 Test Item Value Reference Range Interpretation Comments LACTATE BLOOD VENOUS 1.88 mmol/L 0.50-2.20 Specime n slightly (2) (BEAKER) (test hemolyzed code = 2872) Loader Magazine Grinder ID - BSCBC W/PLT COUNT & AUTO [id number] 17:55:00 Test Item Value Reference Range Interpretation Comments WHITE BLOOD CELL COUNT (BEAKER) 32.9 K/ L 3.5-10.5 H (test code = 775) RED BLOOD CELL COUNT (BEAKER) 4.31 M/ L 4.63-6.08 L (test code = 761) HEMOGLOBIN (BEAKER) (test code = 13.3 GM/DL 13.7-17.5 L 410) HEMATOCRIT (BEAKER) (test code = 41.5 % 40.1-51.0 411) MEAN CORPUSCULAR VOLUME (BEAKER) 96.3 fL 79.0-92.2 H (test code = 753) MEAN CORPUSCULAR HEMOGLOBIN 30.9 pg 25.7-32.2 (BEAKER) (test code = 751) MEAN CORPUSCULAR HEMOGLOBIN CONC 32.0 GM/DL 32.3-36.5 L (BEAKER) (test code = 752) RED CELL DISTRIBUTION WIDTH 12.3 % 11.6-14.4 (BEAKER) (test code = 412) PLATELET COUNT (BEAKER) (test 283 K/CU MM 150-450 code = 756) MEAN PLATELET VOLUME (BEAKER) 11.6 fL 9.4-12.4 (test code = 754) NUCLEATED RED BLOOD CELLS 0 /100 WBC 0-0 (BEAKER) (test code = 413) COMPREHENSIVE METABOLIC [id number] 17:50:00 Test Item Value Reference Range Interpretation Comments TOTAL PROTEIN 5.2 gm/dL 6.0-8.3 L (BEAKER) (test code = 770) ALBUMIN (BEAKER) 2.8 g/dL 3.5-5.0 L (test code = 1145) ALKALINE PHOSPHATASE 54 U/L 40-150 (BEAKER) (test code = 346) BILIRUBIN TOTAL 0.8 mg/dL 0.2-1.2 (BEAKER) (test code = 377) SODIUM (BEAKER) (test 144 meq/L 136-145 code = 381) POTASSIUM (BEAKER) 4.1 meq/L 3.5-5.1 (test code = 379) CHLORIDE (BEAKER) 108 meq/L 98-107 H (test code = 382) CO2 (BEAKER) (test 28 meq/L 22-29 code = 355) BLOOD UREA NITROGEN 37 mg/dL 7-21 H (BEAKER) (test code = 354) CREATININE (BEAKER) 0.69 mg/dL 0.57-1.25 (test code = 358) GLUCOSE RANDOM 156 mg/dL 70-105 H (BEAKER) (test code = 652) CALCIUM (BEAKER) 8.5 mg/dL 8.4-10.2 (test code = 697) AST (SGOT) (BEAKER) 19 U/L 5-34 (test code = 353) ALT (SGPT) (BEAKER) 52 U/L 6-55 (test code = 347) EGFR (BEAKER) (test 110 ESTIMATE D GFR IS code = 1092) mL/min/1.73 sq NOT ACCURA TE m CREATININE CLEARANCE IN PREDICTING GLOMERULAR FILTRATION RATE . ESTIMATED GFR I S NOT APPLICABLE FOR DIALYSIS PATIEN TS. Loader Magazine Grinder ID - BSPOCT-GLUCOSE [id number] 17:38:00 Test Item Value Reference Range Interpretation Comments POC-GLUCOSE METER 150 mg/dL 70-110 H : TESTED A T BSC 6720 (BEAKER) (test code = [place], 1538) [address]: Loader Magazine Grinder/Techni martin ID = [id number] for Ingrid Brewster TROPONIN [id number] 15:58:00 Test Item Value Reference Range Interpretation Comments TROPONIN I (BEAKER) (test code = 0.01 ng/mL 0.00-0.03 397) Troponin I (TnI) levels must be interpreted in the context of the presenting symptoms and the clinical findings. Elevated TnI levels indicate myocardial damage, but are not specific for ischemic heart disease. Elevated TnI levels are seen in patients with other cardiac conditions (including myocarditis and congestive heart failure), and slight TnI elevations occur in patients with other conditions, including sepsis, renal failure, acidosis, acute neurological disease, and persistent tachyarrhythmia.Loader Magazine Grinder ID - BSBLOOD GAS, ARTERIAL 2020-02-10 15:56:00 Test Item Value Reference Range Interpretation Comments PH ARTERIAL (BEAKER) (test code = 7.48 7.35-7.45 H 383) PCO2 ARTERIAL (BEAKER) (test code 42 mm Hg 35-45 = 384) PO2 ARTERIAL (BEAKER) (test code = 67 mm Hg 80-90 L 385) O2 SATURATION ARTERIAL (BEAKER) 93.1 % 96.0-97.0 L (test code = 386) HCO3 ARTERIAL (BEAKER) (test code 30 mmol/L 21-29 H = 388) BASE EXCESS ARTERIAL (BEAKER) 6.6 mmol/L -2.0-3.0 H (test code = 387) PATIENT TEMPERATURE (BEAKER) (test 38.6 code = 1818) FIO2 (BEAKER) (test code = 1819) 40.0 POCT-GLUCOSE [id number] 15:33:00 Test Item Value Reference Range Interpretation Comments POC-GLUCOSE METER 138 mg/dL 70-110 H : TESTED A T BSC 6720 (BEAKER) (test code = [facility], 1538) [address]: Loader Magazine Grinder/Techni martin ID = [id number] for PALAK BERNSTEIN DEJAH RAD, CHEST, 1 VIEW, NON [id number] 14:43:00Reason for exam:->Post intubationShould this be performed at the bedside?->Yes [facility] 1935 Sex: MFINAL REPORT RAD, CHEST, 1 VIEW, NON DEPT INDICATION: Post intubation COMPARISON: 02/10/2020 FINDINGS: Portable frontal view of the chest. IMPRESSION: Support Lines:Left-sided pleural catheter. Otherwise, no significant interval change. Lungs and pleura: Unchanged airspace and pleural opacities. No pneumothorax.Heart and mediastinum: Stable contours. Stable surgical changes.Additional findings: None. Signed: Rand Graham MDReport Verified Date/Time: 02/10/2020 14:43:10 Reading Location: [facility] Radiology Reading Room CT, [id number] 13:43:00Unlisted Reason for Exam - Click Yes and Enter Reason Below->No [facility] 1935 Sex: MFINAL REPORT CT of the Chest, abdomen and pelvis dated 02/10/2020 C linical information: Change in bowel habits (Ped 0-18y) Comment: Axial images of the chest, abdomen, and pelvis were obtained from thoracic inlet to the pubic symphysis with intravenous contrast. Thisexam was performed according to our departmental dose-optimization program, which includes automatedexposure control, adjustment of the mA and/or kV according to patient size and/or use of interactivereconstruction technique. Heart is normal in size. Great vessels are unremarkable. No adenopathy inthe mediastinum or perihilar region. Fluid is seen in the left main, upper and lower lobe bronchi. Small amount fluid is seen in the right lower lobe bronchus. A large left pneumothorax is seen. There is atelectasis involving the left lung and subsegmental atelectasis in the right lower lobe. Airspacedisease is seen in the superior segment of the right lower and right mid lobes suggestive of pneumonia. There is small bilateral pleural effusion. Liver and spleen are normal in size. A 3.3 x 3.2 cm cyst is seen in the segment to 4 of the liver. A 2.0 x 2.8 cm cyst is seen in the segment 5 of the liver. Gallbladder is somewhat distended. No gallstone or biliary dilatation is noted. Pancreas and adrenals are unremarkable. Both kidneys are normal in size and functioning. No hydronephrosis, hydroureter, or urolithiasis is noted. A 5.7 x 6 cm cyst is seen in the mid inferior pole left kidney. Diverticular disease is seen in the large bowel without diverticulitis. The small bowel is normal in caliber.Appendix is not visualized. Prostate is prominent measuring approximately 4.8 x 4.9 x 4.6 cm. The urinary bladder is contracted. Impression: 1. Large left pneumothorax. The findings were relayed to patient's nurse Dejah at the time of dictation.2. Bilateral pleural effusion with atelectasis of the left lung and subsegmental atelectasis in the right lower lobe.3. Airspace disease in the superior segment of the right lower and right mid lobes suggestive of aspiration pneumonia.4. Liver and left renal cysts.5. Diverticulosis without diverticulitis.6. Prostate enlargement. Signed: Daisy Ansari MDRort Verified Date/Time: 02/10/2020 13:43:47 Reading Location: [address] Body Reading Room CT, CHEST, WITH [id number] 13:43:00Unlisted Reason for Exam - Click Yes and Enter Reason Below->No [facility] 1935 Sex: MFINAL REPORT CT of the Chest, abdomen and pelvis dated 02/10/2020 C linical information: Change in bowel habits (Ped 0-18y) Comment: Axial images of the chest, abdomen, and pelvis were obtained from thoracic inlet to the pubic symphysis with intravenous contrast. Thisexam was performed according to our departmental dose-optimization program, which includes automatedexposure control, adjustment of the mA and/or kV according to patient size and/or use of interactivereconstruction technique. Heart is normal in size. Great vessels are unremarkable. No adenopathy inthe mediastinum or perihilar region. Fluid is seen in the left main, upper and lower lobe bronchi. Small amount fluid is seen in the right lower lobe bronchus. A large left pneumothorax is seen. There is atelectasis involving the left lung and subsegmental atelectasis in the right lower lobe. Airspacedisease is seen in the superior segment of the right lower and right mid lobes suggestive of pneumonia. There is small bilateral pleural effusion. Liver and spleen are normal in size. A 3.3 x 3.2 cm cyst is seen in the segment to 4 of the liver. A 2.0 x 2.8 cm cyst is seen in the segment 5 of the liver. Gallbladder is somewhat distended. No gallstone or biliary dilatation is noted. Pancreas and adrenals are unremarkable. Both kidneys are normal in size and functioning. No hydronephrosis, hydroureter, or urolithiasis is noted. A 5.7 x 6 cm cyst is seen in the mid inferior pole left kidney. Diverticular disease is seen in the large bowel without diverticulitis. The small bowel is normal in caliber.Appendix is not visualized. Prostate is prominent measuring approximately 4.8 x 4.9 x 4.6 cm. The urinary bladder is contracted. Impression: 1. Large left pneumothorax. The findings were relayed to patient's nurse Dejah at the time of dictation.2. Bilateral pleural effusion with atelectasis of the left lung and subsegmental atelectasis in the right lower lobe.3. Airspace disease in the superior segment of the right lower and right mid lobes suggestive of aspiration pneumonia.4. Liver and left renal cysts.5. Diverticulosis without diverticulitis.6. Prostate enlargement. Signed: Daisy Ansari MDReport Verified Date/Time: 02/10/2020 13:43:47 Reading Location: [facility] B1 C013Y CT Body Reading Room CT chest with IV [id number] 13:43:00Interface, External Ris In - 02/10/2020 1:[address] of the Chest, abdomen and pelvis dated 02/10/2020 Clinical information: Change in bowel habits (Ped 0-18y) Comment: Axial images of the chest, abdomen, and pelvis were obtained from thoracic inlet to the pubicsymphysis with intravenous contrast. This exam was performed according to our departmental dose-optim ization program, which includes automated exposure control, adjustment of the mA and/or kV accordingto patient size and/or use of interactive reconstruction technique. Heart is normal in size. Great vessels are unremarkable. No adenopathy in the mediastinum or perihilar region. Fluid is seen in the left main, upper and lower lobe bronchi. Small amount fluid is seen in the right lower lobe bronchus.A large left pneumothorax is seen. There is atelectasis involving the left lung and subsegmental atelectasis in the right lower lobe. Airspace disease is seen in the superior segment of the right lowerand right mid lobes suggestive of pneumonia. There is small bilateral pleural effusion. Liver and spleen are normal in size. A 3.3 x 3.2 cm cyst is seen in the segment to 4 of the liver. A 2.0 x 2.8 cmcyst is seen in the segment 5 of the liver. Gallbladder is somewhat distended. No gallstone or biliary dilatation is noted. Pancreas and adrenals are unremarkable. Both kidneys are normal in size and fu nctioning. No hydronephrosis, hydroureter, or urolithiasis is noted. A 5.7 x 6 cm cyst is seen in the mid inferior pole left kidney. Diverticular disease is seen in the large bowel without diverticulitis. The small bowel is normal in caliber. Appendix is not visualized. Prostate is prominent measuring approximately 4.8 x 4.9 x 4.6 cm. The urinary bladder is contracted. Impression: 1. Large left pneumothorax. The findings were relayed to patient's nurse Dejah at the time of dictation.2. Bilateral pleural effusion with atelectasis of the left lung and subsegmental atelectasis in the right lower lobe.3. Airspace disease in the superior segment of the right lower and right mid lobes suggestive of aspiration pneumonia.4. Liver and left renal cysts.5. Diverticulosis without diverticulitis.6. Prostate enlargement. Signed: Daisy Ansari MDReport Verified Date/Time: 02/10/2020 13:43:47 Reading Location: [address] [facility] [id number] 13:43:00Interface, External Ris In - 02/10/2020 1:[address] of the Chest, abdomen and pelvis dated 02/10/2020 Clinical information: Change in bowel habits (Ped 0-18y) Com ment: Axial images of the chest, abdomen, and pelvis were obtained from thoracic inlet to the pubicsymphysis with intravenous contrast. This exam was performed according to our departmental dose-optimization program, which includes automated exposure control, adjustment of the mA and/or kV accordingto patient size and/or use of interactive reconstruction technique. Heart is normal in size. Great vessels are unremarkable. No adenopathy in the mediastinum or perihilar region. Fluid is seen in the left main, upper and lower lobe bronchi. Small amount fluid is seen in the right lower lobe bronchus.A large left pneumothorax is seen. There is atelectasis involving the left lung and subsegmental atelectasis in the right lower lobe. Airspace disease is seen in the superior segment of the right lowerand right mid lobes suggestive of pneumonia. There is small bilateral pleural effusion. Liver and spleen are normal in size. A 3.3 x 3.2 cm cyst is seen in the segment to 4 of the liver. A 2.0 x 2.8 cmcyst is seen in the segment 5 of the liver. Gallbladder is somewhat distended. No gallstone or biliary dilatation is noted. Pancreas and adrenals are unremarkable. Both kidneys are normal in size and functioning. No hydronephrosis, hydroureter, or urolithiasis is noted. A 5.7 x 6 cm cyst is seen in the mid inferior pole left kidney. Diverticular disease is seen in the large bowel without diverticulitis. The small bowel is normal in caliber. Appendix is not visualized. Prostate is prominent measuring approximately 4.8 x 4.9 x 4.6 cm. The urinary bladder is contracted. Impression: 1. Large left pneumothorax. The findings were relayed to patient's nurse Dejah at the time of dictation.2. Bilateral pleural effusion with atelectasis of the left lung and subsegmental atelectasis in the right lower lobe.3. Airspace disease in the superior segment of the right lower and right mid lobes suggestive of aspiration pneumonia.4. Liver and left renal cysts.5. Diverticulosis without diverticulitis.6. Prostate enlargement. Signed: Daisy [facility] Verified Date/Time: 02/10/2020 13:43:47 Reading Location: [facility] C013Y CT Body Reading [facility] 12:34:00 Test Item Value Reference Range Interpretation Comments PARTIAL THROMBOPLASTIN TIME 30.7 seconds 22.5-36.0 (BEAKER) (test code = 760) SPUTUM CULTURE + GRAM [id number] 09:26:00 Test Item Value Reference Range Interpretation Comments CULTURE (BEAKER) 1+ Normal respiratory (test code = 1095) ricardo present GRAM STAIN RESULT <1+ WBCs (BEAKER) (test code = 1123) GRAM STAIN RESULT 0-5 epithelial cells (BEAKER) (test code = 686530) GRAM STAIN RESULT No organisms seen (BEAKER) (test code = 055721) [id number] 09:25:00 Test Item Value Reference Range Interpretation Comments PARTIAL THROMBOPLASTIN TIME 131.4 seconds 22.5-36.0 H (BEAKER) (test code = 760) TROPONIN [id number] 08:23:00 Test Item Value Reference Range Interpretation Comments TROPONIN I (BEAKER) (test code = 0.02 ng/mL 0.00-0.03 397) Troponin I (TnI) levels must be interpreted in the context of the presenting symptoms and the clinical findings. Elevated TnI levels indicate myocardial damage, but are not specific for ischemic heart disease. Elevated TnI levels are seen in patients with other cardiac conditions (including myocarditis and congestive heart failure), and slight TnI elevations occur in patients with other conditions, including sepsis, renal failure, acidosis, acute neurological disease, and persistent tachyarrhythmia.Loader Magazine Grinder ID - EDASIPOCT-GLUCOSE METER 2020-02-10 06:10:00 Test Item Value Reference Range Interpretation Comments POC-GLUCOSE METER 184 mg/dL 70-110 H : TESTED A T [facility] 6720 (AKER) (test code = KENYON Haney [facility], 1538) [address]: Loader Magazine Grinder/Techni martin ID = [id number] for CLAIRE VINCENT CBC W/PLT COUNT & AUTO [id number] 05:16:00 Test Item Value Reference Range Interpretation Comments WHITE BLOOD CELL COUNT (BEAKER) 30.8 K/ L 3.5-10.5 H (test code = 775) RED BLOOD CELL COUNT (BEAKER) 4.34 M/ L 4.63-6.08 L (test code = 761) HEMOGLOBIN (BEAKER) (test code = 13.6 GM/DL 13.7-17.5 L 410) HEMATOCRIT (BEAKER) (test code = 42.2 % 40.1-51.0 411) MEAN CORPUSCULAR VOLUME (BEAKER) 97.2 fL 79.0-92.2 H (test code = 753) MEAN CORPUSCULAR HEMOGLOBIN 31.3 pg 25.7-32.2 (BEAKER) (test code = 751) MEAN CORPUSCULAR HEMOGLOBIN CONC 32.2 GM/DL 32.3-36.5 L (BEAKER) (test code = 752) RED CELL DISTRIBUTION WIDTH 12.5 % 11.6-14.4 (BEAKER) (test code = 412) PLATELET COUNT (BEAKER) (test 253 K/CU MM 150-450 code = 756) MEAN PLATELET VOLUME (BEAKER) 11.5 fL 9.4-12.4 (test code = 754) NUCLEATED RED BLOOD CELLS 0 /100 WBC 0-0 (BEAKER) (test code = 413) (CELLAVISION MANUAL DIFF)2020-02-10 05:16:00 Test Item Value Reference Range Interpretation Comments NEUTROPHILS - REL 85 % (CELLAVISION)(BEAKER) (test code = 2816) MONOCYTES - REL 4 % (CELLAVISION)(BEAKER) (test code = 2818) BANDS - REL (CELLAVISION)(BEAKER) 11 % 0-10 H (test code = 2826) NEUTROPHILS - ABS 26.18 K/ul 1.78-5.38 H (CELLAVISION)(BEAKER) (test code = 2830) MONOCYTES - ABS 1.23 K/uL 0.30-0.82 H (CELLAVISION)(BEAKER) (test code = 2832) BANDS - ABS (CELLAVISION)(BEAKER) 3.39 K/uL 0.00-0.80 H (test code = 2840) TOTAL COUNTED (BEAKER) (test code 100 = 1351) PLT MORPHOLOGY (BEAKER) (test code Normal = 486) SMUDGE CELLS (BEAKER) (test code = Present 1371) POLYCHROMATOPHILLIC RBCS(BEAKER) 1+ few (test code = 478) ANISOCYTOSIS (BEAKER) (test code = 1+ few 961) MICROCYTES (BEAKER) (test code = 1+ few 965) POIKILOCYTES (BEAKER) (test code = 1+ few 966) PLATELET CONCENTRATION Adequate (CELLAVISION)(BEAKER) (test code = 3438) Loader Magazine Grinder ID - Austin Lacy comments: Slide comments:BLOOD GAS, [id number] 05:08:00 Test Item Value Reference Range Interpretation Comments PH ARTERIAL (BEAKER) (test code = 7.31 7.35-7.45 L 383) PCO2 ARTERIAL (BEAKER) (test code 59 mm Hg 35-45 H = 384) PO2 ARTERIAL (BEAKER) (test code = 149 mm Hg 80-90 H 385) O2 SATURATION ARTERIAL (BEAKER) 98.7 % 96.0-97.0 H (test code = 386) HCO3 ARTERIAL (BEAKER) (test code 29 mmol/L 21-29 = 388) BASE EXCESS ARTERIAL (BEAKER) 1.4 mmol/L -2.0-3.0 (test code = 387) PATIENT TEMPERATURE (BEAKER) (test 37.1 code = 1818) FIO2 (BEAKER) (test code = 1819) 40.0 URINALYSIS W/ REFLEX URINE [id number] 04:45:00 Test Item Value Reference Range Interpretation Comments COLOR (BEAKER) (test code = 470) Yellow CLARITY (BEAKER) (test code = 469) Hazy SPECIFIC GRAVITY UA (BEAKER) (test 1.034 1.001-1.035 code = 468) PH UA (BEAKER) (test code = 467) 5.5 5.0-8.0 PROTEIN UA (BEAKER) (test code = 70 mg/dL Negative A 464) GLUCOSE UA (BEAKER) (test code = Negative Negative 365) KETONES UA (BEAKER) (test code = Negative Negative 371) BILIRUBIN UA (BEAKER) (test code = Negative Negative 462) BLOOD UA (BEAKER) (test code = Negative Negative 461) NITRITE UA (BEAKER) (test code = Negative Negative 465) LEUKOCYTE ESTERASE UA (BEAKER) Negative Negative (test code = 466) UROBILINOGEN UA (BEAKER) (test 0.2 mg/dL 0.2-1.0 code = 463) RBC UA (BEAKER) (test code = 519) 14 /HPF WBC UA (BEAKER) (test code = 520) 18 /HPF MUCUS (BEAKER) (test code = 1574) Few SQUAMOUS EPITHELIAL (BEAKER) (test 2 /HPF code = 516) AMORPHOUS CRYSTALS (BEAKER) (test Occasional code = 1584) SOURCE(BEAKER) (test code = 2795) Loader Magazine Grinder ID - [auto]Loader Magazine Grinder ID - techCT, BRAIN, WITHOUT [id number] 04:45:00Unlisted Reason for Exam - Click Yes and Enter Reason Below->No [facility] 1935 Sex: MFINAL REPORT EXAM: CT head without contrast. CLINICAL HISTORY: Neuro deficit, acute, persistent or progressing COMPARISON: Head CT 02/04/2020. TECHNIQUE: CT images of the head were obtained without intravenous contrast. This exam was performed according to our departmental dose optimization program which includes automated exposure control, adjustment of the mA and/or kV according to patient's size and/or use of iterative reconstructive technique. FINDINGS:There isdiffuse subarachnoid hemorrhage in the bilateral cerebral hemispheres, mildly decreased. There is small layering hemorrhage in the bilateral occipital horns.There is small subdural hemorrhage along thebilateral tentorium leaflets and along the posterior falx, mildly decreased. There is small subduralhematoma in the right posterior cerebral convexity measuring approximately 2 mm. There is generalized parenchymal atrophy. There are mild white matter microvascular ischemic changes. There is no herniation, hydrocephalus or large demarcated acute territorial infarct. The basal cisterns are patent. The visualized orbits are normal. The visualized paranasal sinuses and tympanomastoid cavities are clear. The skull base and calvarium are intact. IMPRESSION: Diffuse bilateral cerebral subarachnoid hemorrhage, mildly decreased in the interval.Small intraventricular hemorrhage.Small acute subdural hemorrhages along the posterior falx and bilateral tentorium, mildly increased. Small right posterior cerebral convexity subdural hematoma.No midline shift or hydrocephalus. Signed: Carola Roman MDRort Verified Date/Time: 02/10/2020 04:45:25 POCT-GLUCOSE [id number] 04:01:00 Test Item Value Reference Range Interpretation Comments POC-GLUCOSE METER 185 mg/dL 70-110 H : TESTED A T [facility] 6720 (BEAKER) (test code = [place], 1538) [id number]: Loader Magazine Grinder/Techni martin ID = [id number] for Gio Owusu RAD, CHEST, 1 VIEW, NON [id number] 03:13:00Reason for exam:->respiratory insufficiencyShould this be performed at the bedside?->Yes [facility] 1935 Sex: MFINAL REPORT CLINICAL INDICATION: Respiratory insufficiency Compari son: 02/09/2020 The cardiomediastinal contours are stable. Bilateral parenchymal opacities are unchanged. There is no pneumothorax. A feeding tube remains in place. Signed: Salima Miller MDReport Verified Date/Time: 02/10/2020 03:13:50 [id number] 02:48:00 Test Item Value Reference Range Interpretation Comments PROCALCITONIN (SINDY) (test code 0.29 ng/mL <0.05 H = 3036) SEPSIS RISK (ng/mL)Low: 0.05-0.50Intermediate: 0.51-2.00High: >=2.01TROPONIN [id number] 02:45:00 Test Item Value Reference Range Interpretation Comments TROPONIN I (BEAKER) (test code = 0.02 ng/mL 0.00-0.03 397) Troponin I (TnI) levels must be interpreted in the context of the presenting symptoms and the clinical findings. Elevated TnI levels indicate myocardial damage, but are not specific for ischemic heart disease. Elevated TnI levels are seen in patients with other cardiac conditions (including myocarditis and congestive heart failure), and slight TnI elevations occur in patients with other conditions, including sepsis, renal failure, acidosis, acute neurological disease, and persistent tachyarrhythmia.Loader Magazine Grinder ID Joon JEFFERSON LBASIC METABOLIC [id number] 02:39:00 Test Item Value Reference Range Interpretation Comments SODIUM (BEAKER) 140 meq/L 136-145 (test code = 381) POTASSIUM (BEAKER) 4.4 meq/L 3.5-5.1 (test code = 379) CHLORIDE (BEAKER) 107 meq/L 98-107 (test code = 382) CO2 (BEAKER) (test 26 meq/L 22-29 code = 355) BLOOD UREA NITROGEN 40 mg/dL 7-21 H (BEAKER) (test code = 354) CREATININE (BEAKER) 0.79 mg/dL 0.57-1.25 (test code = 358) GLUCOSE RANDOM 189 mg/dL 70-105 H (BEAKER) (test code = 652) CALCIUM (BEAKER) 8.1 mg/dL 8.4-10.2 L (test code = 697) EGFR (BEAKER) (test 94 mL/min/1.73 ESTIMA HAWK GFR IS code = 1092) sq m NOT ACCURATE CREATININE CLEARANCE IN PREDICTING GLOMERULAR FILTRATION RATE . ESTIMATED GFR I S NOT APPLICABLE FOR DIALYSIS PATIEN TS. Loader Magazine Grinder ID - RONNY [id number] 02:39:00 Test Item Value Reference Range Interpretation Comments MAGNESIUM (BEAKER) (test code = 2.0 mg/dL 1.6-2.6 627) Loader Magazine Grinder ID - RONNY [id number] 02:39:00 Test Item Value Reference Range Interpretation Comments PHOSPHORUS (BEAKER) (test code = 4.3 mg/dL 2.3-4.7 604) Loader Magazine Grinder ID - RONNY [id number] 02:20:00 Test Item Value Reference Range Interpretation Comments PARTIAL THROMBOPLASTIN TIME 57.9 seconds 22.5-36.0 H (BEAKER) (test code = 760) LACTIC ACID, [id number] 02:14:00 Test Item Value Reference Range Interpretation Comments LACTATE BLOOD 0.8 mmol/L 0.5-2.2 Specimen sligh tly ARTERIAL (2) (BEAKER) hemoly zed (test code = 2874) Loader Magazine Grinder ID - PIAYA LBLOOD GAS, [id number] 01:57:00 Test Item Value Reference Range Interpretation Comments PH ARTERIAL (BEAKER) (test code = 7.33 7.35-7.45 L 383) PCO2 ARTERIAL (BEAKER) (test code 61 mm Hg 35-45 H = 384) PO2 ARTERIAL (BEAKER) (test code = 182 mm Hg 80-90 H 385) O2 SATURATION ARTERIAL (BEAKER) 99.1 % 96.0-97.0 H (test code = 386) HCO3 ARTERIAL (BEAKER) (test code 31 mmol/L 21-29 H = 388) BASE EXCESS ARTERIAL (BEAKER) 3.7 mmol/L -2.0-3.0 H (test code = 387) PATIENT TEMPERATURE (BEAKER) (test 37.3 code = 1818) FIO2 (BEAKER) (test code = 1819) 60.0 CALCIUM, [id number] 01:56:00 Test Item Value Reference Range Interpretation Comments CALCIUM IONIZED (BEAKER) (test 1.13 mmol/L 1.12-1.27 code = 698) PH, BLOOD (BEAKER) (test code = 7.34 1810) MR, BRAIN, [id number] 01:23:00Unlisted Reason for Exam - Click Yes and Enter Reason Below->NoDeos the patient have an implantedelectronic device?->No [facility] : 1935 Sex: MFINAL REPORT MRI brain with and without contrast Comparison: No prior study for direct comparison. Reason for exam: Subarachnoid hemorrhage, follow- up Technique: Multiplanar multi sequential MRI of the brain was performed with and without intravenous contrast. Findings: There is diffuse subarachnoid hemorrhage in bilateral cerebral hemispheres. There are small bilateral posterior cerebral convexity subdural hematomas. There are small subdural hematomas in the left posterior parafalcine region and bilateral tentorial leaflets. There is a small layering hemorrhage inthe bilateral occipital horns and fourth ventricle. There is no intracranial mass, mass effect, hydrocephalus or herniation. There is no restricted diffusion to suggest an acute infarct. There is no abnormal enhancement. The skull base flow-voids are seen in keeping with their patency. The visualized paranasal sinuses and mastoid air cells are clear. The orbits, sella and parasellar regions are unremarkable. The craniocervical junction is normal. Impression: Diffuse bilateral cerebral subarachnoid hemorrhage.Small intraventricular hemorrhage.Small subdural hematomas in the bilateral posterior cerebral convexities, bilateral tentorial leaflets and along the left posterior falx.No abnormal enhancement, mass effect or hydrocephalus. Signed: Carola Roman Cox Bransonort Verified Date/Time: 02/10/2020 01:23:45 MR brain without & with IV [id number] 01:23:00 Interface, External Ris In - 02/10/2020 1:25 AM CDTFINAL REPORT MRI brain with and without contrast Comparison: No prior study for direct comparison. Reason for exam: Subarachnoid hemorrhage, follow-up Technique: Multiplanar multi sequential MRI of the brain was performed withand without intravenous contrast. Findings: There is diffuse subarachnoid hemorrhage in bilateral cerebral hemispheres. There are small bilateral posterior cerebral convexity subdural hematomas. There are small subdural hematomas in the left posterior parafalcine region and bilateral tentorial leaflets. There is a small layering hemorrhage in the bilateral occipital horns and fourth ventricle. There is no intracranial mass, mass effect, hydrocephalus or herniation. There is no restricted diffusion to suggest an acute infarct. There is no abnormal enhancement. The skull base flow-voids are seen in keeping with their patency. The visualized paranasal sinuses and mastoid air cells are clear. The orbits, sella and parasellar regions are unremarkable. The craniocervical junction is normal. Impression: Diffuse bilateral cerebral subarachnoid hemorrhage.Small intraventricular hemorrhage.Small subdural hematomas in the bilateral posterior cerebral convexities, bilateral tentorial leaflets and along the left posterior falx.No abnormal enhancement, mass effect or hydrocephalus. Signed: Carola Roman MDReport Verified Date/Time: 02/10/2020 01:23:45 [facility] [id number] 01:22:04AlexaKathy reyes NP 02/10/2020 1:25 AMInsert Arterial Line Date/Time: 02/10/2020 1:22 AMPerformed by: Kathy Calzada NPAuthorized by: Kathy Calzada NP Consent: The procedure was performed in an emergent situation.Risks and benefits: risks, benefits and alternatives were discussedSite marked: n/a.Imaging studies available: n/a.Required items: required blood products, implants, devices, and special equipment availablePatient identity confirmed: arm band, hospital- assigned identification number and anonymous protocol, patient vented/unresponsiveTime out: Immediately prior to procedure a "time out" was called to verify the correct patient, procedure, equipment, telecommunications support and site/side marked as required.Preparation: Patient was prepped and draped in the usual sterile fashion.Indications: hemodynamic monitoringLocation: left radialAnesthesia: local infiltration Anesthesia:LocalAnesthetic: lidocaine 2% without epinephrineAnesthetic total: 2 mL Sedation:Patient sedated: no Garrett's test normal: yesNeedle gauge: 20Seldinger technique: Seldinger technique usedNumber of attempts: 1Post-procedure: line sutured and dressing appliedPost- procedure CMS: normal and unchangedPatient tolerance: patient tolerated the procedure well with no immediate complicationsComments: Placed left radial arterial line emergently. Good blood return and wave form present. No hematoma or bleeding noted.Dressing in place.[facility] HospitalPO[facility]SE [id number] 00:07:00 Test Item Value Reference Range Interpretation Comments POC-GLUCOSE METER 161 mg/dL 70-110 H : TESTED A T [facility] 6720 (SINDY) (test code = KENYON Haney [facility], 1538) [address]: Loader Magazine Grinder/Techni martin ID = [id number] for CLAIRE VINCENT [id number] 18:18:00 Test Item Value Reference Range Interpretation Comments PARTIAL THROMBOPLASTIN TIME 41.3 seconds 22.5-36.0 H (BEAKER) (test code = 760) 6 hours after starting heparin infusion and as indicated per sliding scale [id number] 18:18:00 Test Item Value Reference Range Interpretation Comments PROTIME (BEAKER) (test code = 16.5 seconds 11.9-14.2 H 759) INR (BEAKER) (test code = 370) 1.37 <=5.90 PARTIAL THROMBOPLASTIN TIME 41.3 seconds 22.5-36.0 H (BEAKER) (test code = 760) Effective 09/08/2018: PT Reference Range ChangeNew: 11.9-14.2 Previous: 11.7- 14.7RECOMMENDED COUMADIN/WARFARIN INR THERAPY RANGESSTANDARD DOSE: 2.0-3.0 Includes: PROPHYLAXIS for venous thrombosis, systemic embolization; TREATMENT for venous thrombosis and/or pulmonary embolus.HIGH RISK: Target INR is2.5-3.5 for patients wiht mechanical heart valves.6 hours after starting heparin infusion and as indicated per sliding scalePOCT-GLUCOSE [id number] 18:06:00 Test Item Value Reference Range Interpretation Comments POC-GLUCOSE METER 153 mg/dL 70-110 H : TESTED A T [facility] 6720 ([facility]) (test code = [facility], 1538) [address]: Loader Magazine Grinder/Techni martin ID = [id number] for MEENU HASKINS RAD, CHEST, 1 VIEW, NON [id number] 14:28:00Reason for exam:->Possible sepsisShould this be performed at the bedside?->Yes [facility] 1935 Sex: MFINAL REPORT INDICATION: Possible sepsis COMPARISON: 02/06/2020 TECH NIQUE: Single frontal view of the chest. FINDINGS: Lungs and pleura: Bibasilar atelectasis. No effusion.Heart and mediastinum: Normal heart size. Unremarkable mediastinal contours.Osseous structures: No acute abnormality.Other: Feeding tube descends below the diaphragm. Signed: Rand Graham Verified Date/Time: 02/09/2020 14:28:35 Reading Location: [facility] Radiology Reading Room POCT-GLUCOSE [id number] 12:43:00 Test Item Value Reference Range Interpretation Comments POC-GLUCOSE METER 180 mg/dL 70-110 H : [facility] (test code = KENYON Haney [facility], 1538) [address]: Loader Magazine Grinder/Techni martin ID = [id number] for ROYAL SHAFFER [id number] 12:23:00 Test Item Value Reference Range Interpretation Comments PARTIAL THROMBOPLASTIN TIME 27.8 seconds 22.5-36.0 (BEAKER) (test code = 760) Prior to initiating heparinCBC (Hemogram only)2020-02-09 12:15:00 Test Item Value Reference Range Interpretation Comments WBC (test code = 6690-2) 23.9 3.5- 10.5 K/L H RBC (test code = 789-8) 4.84 4.63- 6.08 M/L MCHC (test code = 786-4) 32.7 32.3- 36.5 GM/DL Hematocrit (test code = 4544-3) 46.8 % 40.1-51 MCV (test code = 787-2) 96.7 fL 79-92.2 H MCH (test code = 785-6) 31.6 pg 25.7-32.2 RDW (test code = 788-0) 12.5 % 11.6-14.4 Platelets (test code = 777-3) 254 150- 450 K/CU MM MPV (test code = 13066-5) 11.5 fL 9.4-12.4 nRBC (test code = 413) 0 0- 0 /100 WBC Lab Interpretation (test code = Abnormal 12705-0) [facility] HospitalCBC ([facility]MO[facility] ONLY)2020-02-09 12:15:00 Test Item Value Reference Range Interpretation Comments WHITE BLOOD CELL COUNT (BEAKER) 23.9 K/ L 3.5-10.5 H (test code = 775) RED BLOOD CELL COUNT (BEAKER) 4.84 M/ L 4.63-6.08 (test code = 761) HEMOGLOBIN (BEAKER) (test code = 15.3 GM/DL 13.7-17.5 410) HEMATOCRIT (BEAKER) (test code = 46.8 % 40.1-51.0 411) MEAN CORPUSCULAR VOLUME (BEAKER) 96.7 fL 79.0-92.2 H (test code = 753) MEAN CORPUSCULAR HEMOGLOBIN 31.6 pg 25.7-32.2 (BEAKER) (test code = 751) MEAN CORPUSCULAR HEMOGLOBIN CONC 32.7 GM/DL 32.3-36.5 (BEAKER) (test code = 752) RED CELL DISTRIBUTION WIDTH 12.5 % 11.6-14.4 (BEAKER) (test code = 412) PLATELET COUNT (BEAKER) (test 254 K/CU MM 150-450 code = 756) MEAN PLATELET VOLUME (BEAKER) 11.5 fL 9.4-12.4 (test code = 754) NUCLEATED RED BLOOD CELLS 0 /100 WBC 0-0 (BEAKER) (test code = 413) [id number] 11:49:00 Test Item Value Reference Range Interpretation Comments RPR (test code = 97774-0) Nonreactive Nonreactive Lab Interpretation (test code = Normal 39055-0) [facility] HospitalRPR2020-10-29 11:49:00 Test Item Value Reference Range Interpretation Comments RPR SCREEN (BEAKER) (test code = Nonreactive Nonreactive 420) POCT-GLUCOSE [id number] 06:12:00 Test Item Value Reference Range Interpretation Comments POC-GLUCOSE METER 154 mg/dL 70-110 H : TESTED A T [facility] 6720 (BEAKER) (test code = [place], 1538) [address]: Loader Magazine Grinder/Techni martin ID = [id number] for CLAIRE VINCENT BASIC METABOLIC [id number] 05:44:00 Test Item Value Reference Range Interpretation Comments SODIUM (BEAKER) 146 meq/L 136-145 H (test code = 381) POTASSIUM (BEAKER) 4.5 meq/L 3.5-5.1 (test code = 379) CHLORIDE (BEAKER) 105 meq/L 98-107 (test code = 382) CO2 (BEAKER) (test 32 meq/L 22-29 H code = 355) BLOOD UREA NITROGEN 43 mg/dL 7-21 H (BEAKER) (test code = 354) CREATININE (BEAKER) 0.93 mg/dL 0.57-1.25 (test code = 358) GLUCOSE RANDOM 158 mg/dL 70-105 H (BEAKER) (test code = 652) CALCIUM (BEAKER) 8.8 mg/dL 8.4-10.2 (test code = 697) EGFR (BEAKER) (test 78 mL/min/1.73 ESTIMA HAWK GFR IS code = 1092) sq m NOT ACCURATE CREATININE CLEARANCE IN PREDICTING GLOMERULAR FILTRATION RATE . ESTIMATED GFR I S NOT APPLICABLE FOR DIALYSIS PATIEN TS. Loader Magazine Grinder ID - SUKHDEV [id number] 05:44:00 Test Item Value Reference Range Interpretation Comments MAGNESIUM (BEAKER) (test code = 2.1 mg/dL 1.6-2.6 627) Loader Magazine Grinder ID - SUKHDEV [id number] 05:44:00 Test Item Value Reference Range Interpretation Comments PHOSPHORUS (BEAKER) (test code = 3.2 mg/dL 2.3-4.7 604) Loader Magazine Grinder ID - SUKHDEV MCBC W/PLT COUNT & AUTO [id number] 04:57:00 Test Item Value Reference Range Interpretation Comments WHITE BLOOD CELL COUNT (BEAKER) 18.8 K/ L 3.5-10.5 H (test code = 775) RED BLOOD CELL COUNT (BEAKER) 5.04 M/ L 4.63-6.08 (test code = 761) HEMOGLOBIN (BEAKER) (test code = 15.6 GM/DL 13.7-17.5 410) HEMATOCRIT (BEAKER) (test code = 49.0 % 40.1-51.0 411) MEAN CORPUSCULAR VOLUME (BEAKER) 97.2 fL 79.0-92.2 H (test code = 753) MEAN CORPUSCULAR HEMOGLOBIN 31.0 pg 25.7-32.2 (BEAKER) (test code = 751) MEAN CORPUSCULAR HEMOGLOBIN CONC 31.8 GM/DL 32.3-36.5 L (BEAKER) (test code = 752) RED CELL DISTRIBUTION WIDTH 12.6 % 11.6-14.4 (BEAKER) (test code = 412) PLATELET COUNT (BEAKER) (test 244 K/CU MM 150-450 code = 756) MEAN PLATELET VOLUME (BEAKER) 11.6 fL 9.4-12.4 (test code = 754) NUCLEATED RED BLOOD CELLS 0 /100 WBC 0-0 (BEAKER) (test code = 413) NEUTROPHILS RELATIVE PERCENT 85 % (BEAKER) (test code = 429) LYMPHOCYTES RELATIVE PERCENT 7 % (BEAKER) (test code = 430) MONOCYTES RELATIVE PERCENT 7 % (BEAKER) (test code = 431) EOSINOPHILS RELATIVE PERCENT 1 % (BEAKER) (test code = 432) BASOPHILS RELATIVE PERCENT 0 % (BEAKER) (test code = 437) NEUTROPHILS ABSOLUTE COUNT 15.96 K/ L 1.78-5.38 H (BEAKER) (test code = 670) LYMPHOCYTES ABSOLUTE COUNT 1.31 K/ L 1.32-3.57 L (BEAKER) (test code = 414) MONOCYTES ABSOLUTE COUNT (BEAKER) 1.26 K/ L 0.30-0.82 H (test code = 415) EOSINOPHILS ABSOLUTE COUNT 0.10 K/ L 0.04-0.54 (BEAKER) (test code = 416) BASOPHILS ABSOLUTE COUNT (BEAKER) 0.04 K/ L 0.01-0.08 (test code = 417) IMMATURE GRANULOCYTES-RELATIVE 1 % 0-1 PERCENT (BEAKER) (test code = 2801) POCT-GLUCOSE [id number] 23:59:00 Test Item Value Reference Range Interpretation Comments POC-GLUCOSE METER 156 mg/dL 70-110 H : TESTED A T [facility] 6720 ([facility]) (test code = KENYON Haney [facility], 1538) [address]: Loader Magazine Grinder/Techni martin ID = [id number] for CLAIRE VINCENT POCT-GLUCOSE [id number] 19:06:00 Test Item Value Reference Range Interpretation Comments POC-GLUCOSE METER 147 mg/dL 70-110 H : TESTED A T [facility] 6720 ([facility]) (test code = KENYON Haney [facility], 1538) [address]: Loader Magazine Grinder/Techni martin ID = [id number] for Lili Gong HIV-1 Antigen with HIV-1/2 [id number] 13:21:00 Test Item Value Reference Range Interpretation Comments HIV-1 Antigen with HIV Nonreactive Nonreactive 1&2 Antibody (test code = 95044-4) JUDI (test code = JUDI) Loader Magazine Grinder ID Joon JEFFERSON L Lab Interpretation (test Normal code = 45591-6) [facility] ANTIGEN WITH HIV-1/2 [id number] 13:21:00 Test Item Value Reference Range Interpretation Comments HIV-1 ANTIGEN WITH HIV 1\\T\\2 Nonreactive Nonreactive ANTIBODY (2) ([facility]) (test code = 2586) Loader Magazine Grinder ID - RONNY LFL, LUMBAR PUNCTURE, [id number] 11:43:00Labs to be ordered:->Cell Count+Diff w/Reflex to BioFire PCRReason for exam:->r/o csf infectionS[facility]ITALName: SAY[facility]NAM [facility]RAFT ELINOR : 1935 Sex: MFINAL REPORT FL, LUMBAR PUNCTURE, FLUORO INDICATION: r/o csf infection MODALITY: Fluoroscopy PROCEDURE:Informed consent: The procedure was discussed in detail with the patient's , including the indication, benefits, risks, alternatives, and potential complications.All questions were answered to the patient's 's satisfaction. The patient's wished to proceed and informed consent was obtained. Time out: A time out was performed to confirm the correct patient, procedure, and site. Site and preparation: With fluoroscopic guidance (employing low-dose radiation), under sterile conditions and with local anesthesia, lumbar puncture was undertaken at L2-3, L3-4 and L4-5. The L2-3 level had no clear canal access due to osteophyte formation. Needle positioning was demonstrated appropriate at L3-4 and L4-5 utilizing both frontal and lateral fluoroscopic guidance. No CSF could be obtained at any of the three attempted levels. Complications: None FLUOROSCOPY TIME: 0.4 minutes# Fluoroscopic images: 5 IMPRESSION: Unsuccessful fluoroscopically guided lumbar puncture. Signed: JR Patrick Robert MDReport Verified Date/Time: 02/08/2020 11:43:08 Reading Location: [address] Neuro Reading Room [place] Lumbar Puncture [id number] 11:43:00Interface, External Ris In - 02/08/2020 11:45 AM CDTFINAL REPORT [place], LUMBAR PUNCTURE, FLUORO INDICATION: r/o csf infection MODALITY: Fluoroscopy PROCEDURE:Informed consent: The pr ocedure was discussed in detail with the patient's , including the indication, benefits, risks, alternatives, and potential complications. All questions were answered to the patient's 's satisfaction. The patient's wished to proceed and informed consent was obtained. Time out: A time outwas performed to confirm the correct patient, procedure, and site. Site and preparation: With fluoroscopic guidance (employing low-dose radiation), under sterile conditions and with local anesthesia, lumbar puncture was undertaken at L2-3, L3-4 and L4-5. The L2-3 level had no clear canal access due toosteophyte formation. Needle positioning was demonstrated appropriate at L3-4 and L4-5 utilizing both frontal and lateral fluoroscopic guidance. No CSF could be obtained at any of the three attempted levels. Complications: None FLUOROSCOPY TIME: 0.4 minutes# Fluoroscopic images: 5 IMPRESSION: Unsuccessful fluoroscopically guided lumbar puncture. Signed: JR Patrick Robert MDReport VerifiedDate/Time: 02/08/2020 11:43:08 Reading Location: [address] [facility] [id number] 11:33:00 Test Item Value Reference Range Interpretation Comments POC-GLUCOSE METER 118 mg/dL 70-110 H : TESTED A T [facility] 6720 (BEAKER) (test code = [facility] [facility], 1538) [address]: Loader Magazine Grinder/Techni martin ID = [id number] for Lili Gong POCT-GLUCOSE [id number] 08:46:00 Test Item Value Reference Range Interpretation Comments POC-GLUCOSE METER 135 mg/dL 70-110 H : TESTED A T [facility] 6720 (BEAKER) (test code = [employer] [place], 1538) [address]: Loader Magazine Grinder/Techni martin ID = [id number] for St genevaeSandraLili BASIC METABOLIC [id number] 05:11:00 Test Item Value Reference Range Interpretation Comments SODIUM (BEAKER) 148 meq/L 136-145 H (test code = 381) POTASSIUM (BEAKER) 4.4 meq/L 3.5-5.1 (test code = 379) CHLORIDE (BEAKER) 107 meq/L 98-107 (test code = 382) CO2 (BEAKER) (test 32 meq/L 22-29 H code = 355) BLOOD UREA NITROGEN 50 mg/dL 7-21 H (BEAKER) (test code = 354) CREATININE (BEAKER) 0.87 mg/dL 0.57-1.25 (test code = 358) GLUCOSE RANDOM 164 mg/dL 70-105 H (BEAKER) (test code = 652) CALCIUM (BEAKER) 8.7 mg/dL 8.4-10.2 (test code = 697) EGFR (BEAKER) (test 84 mL/min/1.73 ESTIMA HAWK GFR IS code = 1092) sq m NOT ACCURATE CREATININE CLEARANCE IN PREDICTING GLOMERULAR FILTRATION RATE . ESTIMATED GFR I S NOT APPLICABLE FOR DIALYSIS PATIEN TS. Loader Magazine Grinder ID - [id number] 05:11:00 Test Item Value Reference Range Interpretation Comments MAGNESIUM (BEAKER) (test code = 2.4 mg/dL 1.6-2.6 627) Loader Magazine Grinder ID - [id number] 05:11:00 Test Item Value Reference Range Interpretation Comments PHOSPHORUS (BEAKER) (test code = 3.4 mg/dL 2.3-4.7 604) Loader Magazine Grinder ID - EDASICBC W/PLT COUNT & AUTO [id number] 04:51:00 Test Item Value Reference Range Interpretation Comments WHITE BLOOD CELL COUNT (BEAKER) 17.2 K/ L 3.5-10.5 H (test code = 775) RED BLOOD CELL COUNT (BEAKER) 4.68 M/ L 4.63-6.08 (test code = 761) HEMOGLOBIN (BEAKER) (test code = 14.4 GM/DL 13.7-17.5 410) HEMATOCRIT (BEAKER) (test code = 45.6 % 40.1-51.0 411) MEAN CORPUSCULAR VOLUME (BEAKER) 97.4 fL 79.0-92.2 H (test code = 753) MEAN CORPUSCULAR HEMOGLOBIN 30.8 pg 25.7-32.2 (BEAKER) (test code = 751) MEAN CORPUSCULAR HEMOGLOBIN CONC 31.6 GM/DL 32.3-36.5 L (BEAKER) (test code = 752) RED CELL DISTRIBUTION WIDTH 12.7 % 11.6-14.4 (BEAKER) (test code = 412) PLATELET COUNT (BEAKER) (test 213 K/CU MM 150-450 code = 756) MEAN PLATELET VOLUME (BEAKER) 11.3 fL 9.4-12.4 (test code = 754) NUCLEATED RED BLOOD CELLS 0 /100 WBC 0-0 (BEAKER) (test code = 413) NEUTROPHILS RELATIVE PERCENT 84 % (BEAKER) (test code = 429) LYMPHOCYTES RELATIVE PERCENT 7 % (BEAKER) (test code = 430) MONOCYTES RELATIVE PERCENT 8 % (BEAKER) (test code = 431) EOSINOPHILS RELATIVE PERCENT 0 % (BEAKER) (test code = 432) BASOPHILS RELATIVE PERCENT 0 % (BEAKER) (test code = 437) NEUTROPHILS ABSOLUTE COUNT 14.54 K/ L 1.78-5.38 H (BEAKER) (test code = 670) LYMPHOCYTES ABSOLUTE COUNT 1.19 K/ L 1.32-3.57 L (BEAKER) (test code = 414) MONOCYTES ABSOLUTE COUNT (BEAKER) 1.32 K/ L 0.30-0.82 H (test code = 415) EOSINOPHILS ABSOLUTE COUNT 0.01 K/ L 0.04-0.54 L (BEAKER) (test code = 416) BASOPHILS ABSOLUTE COUNT (BEAKER) 0.03 K/ L 0.01-0.08 (test code = 417) IMMATURE GRANULOCYTES-RELATIVE 1 % 0-1 PERCENT (BEAKER) (test code = 2801) POCT-GLUCOSE [id number] 01:24:00 Test Item Value Reference Range Interpretation Comments POC-GLUCOSE METER 122 mg/dL 70-110 H : TESTED A T [facility] 6720 ([facility]) (test code = [facility], 1538) [address]: Loader Magazine Grinder/Techni martin ID = [id number] for SALBADOR ORTEGA MIKE Venous doppler arms [id number] 21:13:55Ejection FractionSLE ECHO HEARTLAB MKCKESSON CPACSRight Impression1. There is no deep venous obstruction in the jugular, brachial, radial orulnar veins.2. There is partial deep venous obstruction in the subclavian vein.3. There is total deep venous obstruction in the axillary vein.4. There is no superficial venous obstruction in the cephahlic vein.5. There is total superficial venous osbtruction in the basilic vein.Left Impression1. There is no deep venous obstruction in the jugular, subclavian, axi llary,brachial, radial or ulnar veins.2. There is no superficial venous obstruction in the basilic vein.3. There is total superficial venous obstruction in the forearm cephalicvein. Conclusions Summary Venous duplex imaging and compression of the bilateral upper extremities was performed. The veinswere adequately visualized. 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 The right superficial venous system was positive with acute thrombus. The left deep venous system was patent and compressible with no evidence of thrombus. The left superficial venous system was positive with acute thrombus. Signature -- Velocities are measured in cm/s ; Diameters are measured in cm Interface, External Ris In - 02/07/2020 9:14 PM CDTPV LAB - Upper Extremities Veins Demographics Patient Name ANAM PURI Date of Study 02/07/2020 Age 84 Visit Number [id number] Gender Male Date of 1935 Number Referring Ronald [facility] Room Number [id number] Physician Nilda 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 June [place] RVT Interpreting Deya Orellana Physician ProcedureType of Study: Veins: Upper Extremities Veins, VENOUS DOPPLER ARMS, BILATERAL. Indications for Study:DVT SCAN.Patient Status:Routine.Study Location:Portable.Technical Quality:Technically Difficult. - Results were reported to: EMY Bullard.Risk FactorsHistory of Disease+--- +----+--------+!Diagnos is !Date!Comments!+ -------+----+--------+!History/Risk Factors: ! !HTN, HLD!+-- +----+--------+Impress ionsRight Impression1. There is no deep venous obstruction in the jugular, brachial, radial orulnar veins.2. There is partial deep venous obstruction in the subclavian vein.3. There is total deep venous obstruction in the axillary vein.4. There is no superficial venous obstruction in the cephahlic vein.5. There is total superficial venous osbtruction in the basilic vein.Left Impression1. There is no deep venous obstruction in the jugular, subclavian, axillary,brachial, radial or ulnar veins.2. There is no superficial venous obstruction in the basilic vein.3. There is total superficial venous obstruction in the forearm cephalicvein. Conclusions Summary Venous duplex imaging and compression [...] in cm/s ; Diameters are measured in [facility] BLOOD [id number] 21:00:00 Test Item Value Reference Range Interpretation Comments CULTURE (BEAKER) (test No growth in 5 days code = 1095) BLOOD [id number] 18:01:00 Test Item Value Reference Range Interpretation Comments CULTURE (BEAKER) (test No growth in 5 days code = 1095) POCT-GLUCOSE [id number] 17:45:00 Test Item Value Reference Range Interpretation Comments POC-GLUCOSE METER 215 mg/dL 70-110 H : TESTED A T [facility] 6720 (BEAKER) (test code = [employer] [place], 1538) [address]: Loader Magazine Grinder/Techni martin ID = [id number] for LL OYD, TIKEYA Vancomycin level, [id number] 14:42:00 Test Item Value Reference Range Interpretation Comments Vancomycin Rm (test 15.9 ug/mL code = 11612-7) JUDI (test code = Reference Range: No JUDI) NormalsOperator ID - BS [facility] Hospital[facility]ANCOM[facility]CIN LEVEL, [id number] 14:42:00 Test Item Value Reference Range Interpretation Comments VANCOMYCIN RANDOM (BEAKER) (test 15.9 ug/mL code = 523) Reference Range: No NormalsOperator ID - [id number] (HEMOGRAM ONLY)2020-02-07 14:21:00 Test Item Value Reference Range Interpretation Comments WHITE BLOOD CELL COUNT (BEAKER) 13.1 K/ L 3.5-10.5 H (test code = 775) RED BLOOD CELL COUNT (BEAKER) 4.74 M/ L 4.63-6.08 (test code = 761) HEMOGLOBIN (BEAKER) (test code = 14.6 GM/DL 13.7-17.5 410) HEMATOCRIT (BEAKER) (test code = 45.2 % 40.1-51.0 411) MEAN CORPUSCULAR VOLUME (BEAKER) 95.4 fL 79.0-92.2 H (test code = 753) MEAN CORPUSCULAR HEMOGLOBIN 30.8 pg 25.7-32.2 (BEAKER) (test code = 751) MEAN CORPUSCULAR HEMOGLOBIN CONC 32.3 GM/DL 32.3-36.5 (BEAKER) (test code = 752) RED CELL DISTRIBUTION WIDTH 12.6 % 11.6-14.4 (BEAKER) (test code = 412) PLATELET COUNT (BEAKER) (test 181 K/CU MM 150-450 code = 756) MEAN PLATELET VOLUME (FERNIEAKER) 11.2 fL 9.4-12.4 (test code = 754) NUCLEATED RED BLOOD CELLS 0 /100 WBC 0-0 (SINDY) (test code = 413) POCT-GLUCOSE [id number] 12:34:00 Test Item Value Reference Range Interpretation Comments POC-GLUCOSE METER 144 mg/dL 70-110 H : Notified RN/MD: (SINDY) (test code = TESTED AT [facility] 6720 7606) [facility], [address]: Loader Magazine Grinder/Techni martin ID = [id number] for LL MIGUEL MARTÍNEZCorrina [place], ANGIOGRAM, [id number] 10:52:00Reason for exam:->[facility] : 1935 Sex: MFINAL REPORT Date of Procedure: 02/07/2020 Surgeon: BUDDY Rivas BSAssistant: Musa Ortiz MD Pre-operative diagnosis: Subarachnoid hemorrhagePost-operative diagnosis: Subarachnoid hemorrhage Procedure: Diagnostic cerebral angiogram Anesthesiologist: per anesthesiarecordsAnesthesia Type: GA Complications: None apparent Vessel injections: 1. Right femoral artery2.Right common carotid artery3. Left common carotid artery4. Right vertebral artery5. Left vertebral artery Indication for procedure: Patient is a 84-year-old man with a history of hypertension and hyperlipidemia, transferred from an outside hospital, found to have diffuse subarachnoid hemorrhage. Per re port, the patient developed severe headache, neck pain, nausea, vomiting three days prior to presentation. He had no recent trauma or fall. At the outside hospital he was found to have been, diffuse subarachnoid hemorrhage and was transferred to [facility] for further evaluation and management. Upon arrival patient was found to have some confusion but no focal neurologic deficits. A CT angiogram was done without evidence of aneurysm or other vascular lesions. A diagnostic cerebral angiogramwas performed last week which was negative for intracranial aneurysm. He returns for follow-up cerebral angiogram. Procedure in Detail: AngiogramFollowing explanation of the benefits, risks and alternatives for the procedure, informed consent was obtained from the patient. The risks including but notlimited to stroke, intracranial hemorrhage, vascular injury to the cervical or access vessels were discussed. A time-out was performed. Both groins and wrists were prepped in the usual sterile fashionusing Chloroprep, and sterilely draped. Access was initiated at the right femoral artery under ultrasound guidance (see medical record for images) and a 5 [place] sheath was placed and maintained on heparinized flush. A 5 [place] diagnostic catheter was introduced and brought into the aortic arch underfluoroscopic guidance. The diagnostic catheter was used to catheterize the right common carotid artery, right vertebral artery, left common carotid artery, and left vertebral artery. Upon each successive selective catheterization, digital subtraction angiography using the appropriate rate and volume of contrast in multiple projections was performed. After adequate visualization of all vessels all sheaths and catheters were removed and an Angio-Seal device was used for hemostasis. The patient was transported to the ICU in stable condition Findings: Right Femoral Artery (AP and Lateral)-The sheath enters above the femoral bifurcation. The femoral artery and bifurcation are widely patent without evide nce of ulceration or stenosis. Right Common Carotid Artery, Intracranial (AP, Lateral, Transorbital oblique)-The cervical carotid artery is patent without areas of stenosis, dissection or ulceration; and is without branches -The petrous carotid artery is patent without areas of stenosis, dissection or ulceration the mandibulovidian artery is not visualized, no petrosal segment aneurysms -The cavernous carotid artery is patent without areas of stenosis, dissection, or ulceration, meningohypophyseal trunk and inferolateral trunks are not visualized, there are no cavernous segment aneurysms -The supraclinoidal carotid artery, the opthalmic, communicating, and choroidal segments are patent without areas of stenosis and without aneurysms. The posterior communicating artery is large in caliber, and in configuration. The anterior choroidal artery is visualized. The A1 and M1 segments are visualized and are without stenosis or significant vasospasm. -The KEL fill physiologically throughout theirterritory without cross-filling across the anterior communicating artery. There is no noted stenosisor vasospasm noted within its branches. There are no noted aneurysms of the pericallosal or callosomarginal branches. There is no evidence of arteriovenous shunting -The MCA's fill physiologically throughout their territory there is no noted stenosis, occlusion or vasospasm noted within its branches. There is no evidence for aneurysm. There is no evidence of arteriovenous shunting. The capillary phase is normal without areas of malperfusion, the venous phase demonstrates a normal venous draining pattern Left Common Carotid Artery, Intracranial (AP, Lateral, Transorbital oblique)-The cervical carotid artery is patent without areas of stenosis, dissection or ulceration; and is without branches -Thepetrous carotid artery is patent without areas of stenosis, dissection or ulceration the mandibulovidian artery is not visualized, no petrosal segment aneurysms -The cavernous carotid artery is patent without areas of stenosis, dissection, or ulceration, meningohypophyseal trunk and inferolateral trunks are not visualized, there are no cavernous segment aneurysms -The supraclinoidal carotid artery, the opthalmic, communicating, and choroidal segments are patent without areas of stenosis and withoutaneurysms. The posterior communicating artery is large in caliber and in configuration. The anterior choroidal artery is visualized. The A1 and M1 segments are visualized and are without stenosisor vasospasm. -The KEL fill physiologically throughout their territory without cross-filling across the anterior communicating artery. There is no noted stenosis or vasospasm noted within its branches.There are no noted aneurysms of the pericallosal or callosomarginal branches. There is no evidence of arteriovenous shunting -The MCA's fill physiologically throughout their territory there is no notedstenosis, occlusion or vasospasm noted within its branches. There are no noted aneurysms. There is no evidence of arteriovenous shunting. The capillary phase is normal without areas of malperfusion, the venous phase demonstrates a normal venous draining pattern Right Vertebral Artery (Rajiv/Transfacial, Lateral)-The cervical course of the right vertebral artery has a normal course and appearance. Muscular branches arising from the distal segments are visualized. There is no arteriovenous shuntingnor vascular malformations. -The vertebral artery terminates in the posterior inferior cerebellar artery, proximal to the vertebrobasilar junction. - A large posterior meningeal artery is seen. The cap illary phase is normal and a normal venous drainage pattern is noted. Left Vertebral Artery (Rajiv/Transfacial, Lateral)-The cervical course of the left vertebral artery has a normal course and appearance. Muscular branches arising from the distal segments are visualized. There is no arteriovenous shunting nor vascular malformations. -There is no cross-filling into the right vertebral artery retrograde. -There is no stenosis or ulceration noted in the vertebral or basilar arteries. PICA, AICA, and superior cerebellar arteries are visualized no evidence of aneurysms at their origins. The supervisor webbing arenot well seen, indicating bilateral configuration. There is no evidence of stenosis or vasospasm. -There is not reflux into the posterior communicating artery. -The capillary phase is normal andin normal venous drainage pattern is noted Summary of Findings 1. No intracranial aneurysms or vascular lesions identified. No evidence of significant vasospasm in the intracranial vasculature. 2. No c linical or radiographic evidence of applications. Signed: Jose Coffman MDReport Verified Date/Time: 02/07/2020 10:52:17 Reading Location: [facility] Y8 Neuro Angio Reading Room [place] cerebral 4 vessel [id number] 10:52:00Interface, External Ris In - 02/07/2020 10:54 AM CDTFINAL REPORT Date of Procedure: 02/07/2020 Surgeon: RJ RivasAssistant: Musa Ortiz MD Pre-operative diagnosis: Subarachnoid hemorrhagePost-operative diagnosis: Subarachnoid hemorrhage Procedure: Diagnostic cerebral angiogram Anesthesiologist: per anesthesia recordsAnesthesia Type: GA Complications: None apparent Vessel injections: 1. Right femoral artery2. Right common carotid artery3. Left common carotid artery4.Right vertebral artery5. Left vertebral artery Indication for procedure: Patient is a 84-year-old man with a history of hypertension and hyperlipidemia, transferred from an outside hospital, found to have diffuse subarachnoid hemorrhage. Per report, the patient developed severe headache, neck pain, nausea, vomiting three days prior to presentation. He had no recent trauma or fall. At the outside hospital he was found to have been, diffuse subarachnoid hemorrhage and was transferred to [facility] for further evaluation and management. Upon arrival patient was found to have some confusion but no focal neurologic deficits. A CT angiogram was done without evidence of aneurysm or other vascular lesions. A diagnostic cerebral angiogram was performed last week which was negative for intracranial aneurysm. He returns for follow-up cerebral angiogram. Procedure in Detail: AngiogramFollowing expla nation of the benefits, risks and alternatives for the procedure, informed consent was obtained fromthe patient. The risks including but not limited to stroke, intracranial hemorrhage, vascular injury to the cervical or access vessels were discussed. A time-out was performed. Both groins and wristswere prepped in the usual sterile fashion using Chloroprep, and sterilely draped. Access was initiated at the right femoral artery under ultrasound guidance (see medical record for images) and a 5 [place] sheath was placed and maintained on heparinized flush. A 5 [place] diagnostic catheter was introduced and brought into the aortic arch under fluoroscopic guidance. The diagnostic catheter was used tocatheterize the right common carotid artery, right vertebral artery, left common carotid artery, andleft vertebral artery. Upon each successive selective catheterization, digital subtraction angiography using the appropriate rate and volume of contrast in multiple projections was performed. After adequate visualization of all vessels all sheaths and catheters were removed and an Angio-Seal device was used for hemostasis. The patient was transported to the ICU in stable condition Findings: Right Femoral Artery (AP and Lateral)-The sheath enters above the femoral bifurcation. The femoral artery and bifurcation are widely patent without evidence of ulceration or stenosis. Right Common Carotid Artery, Intracranial (AP, Lateral, Transorbital oblique)-The cervical carotid artery is patent without areas of stenosis, dissection or ulceration; and is without branches -The petrous carotid artery is patent without areas of stenosis, dissection or ulceration the mandibulovidian artery is not visualized, no petrosal segment aneurysms -The cavernous carotid artery is patent without areas of stenosis, dissection, or ulceration, meningohypophyseal trunk and inferolateral trunks are not visualized, there areno cavernous segment aneurysms -The supraclinoidal carotid artery, the opthalmic, communicating, and choroidal segments are patent without areas of stenosis and without aneurysms. The posterior communicating artery is large in caliber, and in configuration. The anterior choroidal artery is visualized. The A1 and M1 segments are visualized and are without stenosis or significant vasospasm. -The KEL fill physiologically throughout their territory without cross-filling across the anterior communicating artery. There is no noted stenosis or vasospasm noted within its branches. There are no notedaneurysms of the pericallosal or callosomarginal branches. There is no evidence of arteriovenous shunting -The MCA's fill physiologically throughout their territory there is no noted stenosis, occlusion or vasospasm noted within its branches. There is no evidence for aneurysm. There is no evidence of arteriovenous shunting. The capillary phase is normal without areas of malperfusion, the venous phase demonstrates a normal venous draining pattern Left Common Carotid Artery, Intracranial (AP, Lateral, Transorbital oblique)-The cervical carotid artery is patent without areas of stenosis, dissection or ulceration; and is without branches -The petrous carotid artery is patent without areas of stenosis, dissection or ulceration the mandibulovidian artery is not visualized, no petrosal segment aneurysms -The cavernous carotid artery is patent without areas of stenosis, dissection, or ulceration, meningohypophyseal trunk and inferolateral trunks are not visualized, there are no cavernous segment aneurysms -The supraclinoidal carotid artery, the opthalmic, communicating, and choroidal segments are patent without areas of stenosis and without aneurysms. The posterior communicating artery is large in caliber and in configuration. The anterior choroidal artery is visualized. The A1 and M1 segments are visualized and are without stenosis or vasospasm. -The KEL fill physiologically throughout their territory without cross-filling across the anterior communicating artery. There is no noted stenosis or vasospasm noted within its branches. There are no noted aneurysms of the pericallosal or callosomarginal branches. There is no evidence of arteriovenous shunting -The MCA's fill physiologically throughout their territory there is no noted stenosis, occlusion or vasospasm noted within its branches. There are no noted aneurysms. There is no evidence of arteriovenous shunting. The capillary phase is normal without areas of malperfusion, the venous phase demonstrates a normal venous draining pattern Right Vertebral Artery (Rajiv/Transfacial, Lateral)-The cervical course of the right vertebral artery has a normal course and appearance. Muscular branches arising from the distal segments are visualized. There is no arteriovenous shunting nor vascular malformations. -The vertebral artery terminates in the posterior inferior cerebellar artery, proximal to the vertebrobasilar junction. - A large posterior meningeal artery is seen. The capillary phase is normal and a normal venous drainage pattern is noted. Left Vertebral Artery (Rajiv/Transfacial, Lateral)- The cervical course of the left vertebral artery has a normal course and appearance. Muscular branches arising from the distal segments are visualized. There is no arteriovenous shunting nor vascular malformations. -There is no cross-filling into the right vertebral artery retrograde. -There is no stenosis or ulceration noted in the vertebral or basilar arteries. PICA, AICA, and superior cerebellar arteries are visualized no evidence of aneurysms at their origins. The supervisor webbing are not well seen, indicating bilateral configuration. There is no evidence of stenosis or vasospasm. -There is not reflux into the posterior communicating artery. -The capillary phase is normal and in normal venous drainage pattern is noted Summary of Findings 1. No intracranial aneurysms or vascular lesions identified. No evidence of significant vasospasm in the intracranial vasculature. 2. No clinical or radiographic evidence of applications. Signed: Jose Coffman MDReport Verified Date/Time: 02/07/2020 10:52:17 Reading Location: [facility] Angio Reading [facility] [id number] 06:41:00 Test Item Value Reference Range Interpretation Comments POC-GLUCOSE METER 133 mg/dL 70-110 H : TESTED A T [facility] 6720 (BEAKER) (test code = [place] [facility], 1538) [address]: Loader Magazine Grinder/Techni martin ID = [id number] for [place] RELA, [place] BASIC METABOLIC [id number] 06:12:00 Test Item Value Reference Range Interpretation Comments SODIUM (BEAKER) 145 meq/L 136-145 (test code = 381) POTASSIUM (BEAKER) 4.4 meq/L 3.5-5.1 (test code = 379) CHLORIDE (BEAKER) 104 meq/L 98-107 (test code = 382) CO2 (BEAKER) (test 32 meq/L 22-29 H code = 355) BLOOD UREA NITROGEN 54 mg/dL 7-21 H (BEAKER) (test code = 354) CREATININE (BEAKER) 1.20 mg/dL 0.57-1.25 (test code = 358) GLUCOSE RANDOM 145 mg/dL 70-105 H (BEAKER) (test code = 652) CALCIUM (BEAKER) 8.8 mg/dL 8.4-10.2 (test code = 697) EGFR (BEAKER) (test 58 mL/min/1.73 ESTIMA HAWK GFR IS code = 1092) sq m NOT ACCURATE CREATININE CLEARANCE IN PREDICTING GLOMERULAR FILTRATION RATE . ESTIMATED GFR I S NOT APPLICABLE FOR DIALYSIS PATIEN TS. Loader Magazine Grinder ID - [id number] 06:12:00 Test Item Value Reference Range Interpretation Comments MAGNESIUM (BEAKER) (test code = 2.4 mg/dL 1.6-2.6 627) Loader Magazine Grinder ID - [id number] 06:12:00 Test Item Value Reference Range Interpretation Comments PHOSPHORUS (BEAKER) (test code = 3.8 mg/dL 2.3-4.7 604) Loader Magazine Grinder ID - edasiCBC W/PLT COUNT & AUTO [id number] 06:00:00 Test Item Value Reference Range Interpretation Comments WHITE BLOOD CELL COUNT (BEAKER) 16.0 K/ L 3.5-10.5 H (test code = 775) RED BLOOD CELL COUNT (BEAKER) 5.04 M/ L 4.63-6.08 (test code = 761) HEMOGLOBIN (BEAKER) (test code = 15.7 GM/DL 13.7-17.5 410) HEMATOCRIT (BEAKER) (test code = 47.8 % 40.1-51.0 411) MEAN CORPUSCULAR VOLUME (BEAKER) 94.8 fL 79.0-92.2 H (test code = 753) MEAN CORPUSCULAR HEMOGLOBIN 31.2 pg 25.7-32.2 (BEAKER) (test code = 751) MEAN CORPUSCULAR HEMOGLOBIN CONC 32.8 GM/DL 32.3-36.5 (BEAKER) (test code = 752) RED CELL DISTRIBUTION WIDTH 12.8 % 11.6-14.4 (BEAKER) (test code = 412) PLATELET COUNT (BEAKER) (test 201 K/CU MM 150-450 code = 756) MEAN PLATELET VOLUME (BEAKER) 11.1 fL 9.4-12.4 (test code = 754) NUCLEATED RED BLOOD CELLS 0 /100 WBC 0-0 (BEAKER) (test code = 413) NEUTROPHILS RELATIVE PERCENT 82 % (BEAKER) (test code = 429) LYMPHOCYTES RELATIVE PERCENT 7 % (BEAKER) (test code = 430) MONOCYTES RELATIVE PERCENT 9 % (BEAKER) (test code = 431) EOSINOPHILS RELATIVE PERCENT 1 % (BEAKER) (test code = 432) BASOPHILS RELATIVE PERCENT 0 % (BEAKER) (test code = 437) NEUTROPHILS ABSOLUTE COUNT 13.12 K/ L 1.78-5.38 H (BEAKER) (test code = 670) LYMPHOCYTES ABSOLUTE COUNT 1.14 K/ L 1.32-3.57 L (BEAKER) (test code = 414) MONOCYTES ABSOLUTE COUNT (BEAKER) 1.48 K/ L 0.30-0.82 H (test code = 415) EOSINOPHILS ABSOLUTE COUNT 0.08 K/ L 0.04-0.54 (BEAKER) (test code = 416) BASOPHILS ABSOLUTE COUNT (BEAKER) 0.03 K/ L 0.01-0.08 (test code = 417) IMMATURE GRANULOCYTES-RELATIVE 1 % 0-1 PERCENT (BEAKER) (test code = 2801) [id number] 05:45:00 Test Item Value Reference Range Interpretation Comments PROTIME (BEAKER) (test code = 15.6 seconds 11.9-14.2 H 759) INR (BEAKER) (test code = 370) 1.28 <=5.90 PARTIAL THROMBOPLASTIN TIME 21.3 seconds 22.5-36.0 L (BEAKER) (test code = 760) Effective 09/08/2018: PT Reference Range ChangeNew: 11.9-14.2 Previous: 11.7- 14.7RECOMMENDED COUMADIN/WARFARIN INR THERAPY RANGESSTANDARD DOSE: 2.0-3.0 Includes: PROPHYLAXIS for venous thrombosis, systemic embolization; TREATMENT for venous thrombosis and/or pulmonary embolus.HIGH RISK: Target INR is2.5-3.5 for patients wiht mechanical heart valves.PROTHROMBIN TIME/[id number] 05:41:00 Test Item Value Reference Range Interpretation Comments PROTIME (BEAKER) (test code = 15.6 seconds 11.9-14.2 H 759) INR (BEAKER) (test code = 370) 1.28 <=5.90 Effective 09/08/2018: PT Reference Range ChangeNew: 11.9-14.2 Previous: 11.7- 14.7RECOMMENDED COUMADIN/WARFARIN INR THERAPY RANGESSTANDARD DOSE: 2.0-3.0 Includes: PROPHYLAXIS for venous thrombosis, systemic embolization; TREATMENT for venous thrombosis and/or pulmonary embolus.HIGH RISK: Target INR is2.5-3.5 for patients wiht mechanical heart valves.POCT-GLUCOSE [id number] 01:24:00 Test Item Value Reference Range Interpretation Comments POC-GLUCOSE METER 131 mg/dL 70-110 H : TESTED A T [facility] 6720 ([email or web address]) (test code = [place], 1538) [address]: Loader Magazine Grinder/Techni martin ID = [id number] for [place] RELA, H[place]ENS[place] SARS-COV2/RT-PCR ([facility])2020-02-06 22:45:00 Test Item Value Reference Range Interpretation Comments SARS-COV2/RT-PCR (test Negative Not Detected, Negative, code = 6993392) See external report for linked test SARS-COV-2 PERFORMING LAB [facility] GAUDENCIO (test code = 9233801) Negative result for this test determines that SARS-CoV-2 RNA was not present in the specimen above the Limit of Detection (LOD). However, Negative results do not preclude SARS-CoV-2 infection and should not be used as the sole basis for treatment or patient management decisions. Negative results mustbe combined with clinical observations, patient history, and epidemiological information. A false negative result may occur if a specimen is improperly collected, transported or handled. A false negative result should be considered if patient's recent exposures or clinical presentation indicate that COVID-19 (SARS-CoV-2) is likely and diagnostic tests for other causes of illness are negative. Re-testing should be considered in cases of suspected false negatives.The limit of detection for this assay is 800 copies/mL.This SARS CoV-2 test is a real-time RT-PCR test intended for the qualitative detection of nucleic acid from SARS-CoV-2 in a nasopharyngeal swab specimen collected from individuals suspected of COVID-19 by their healthcare provider.This test has not been Food and Drug [...] is revoked under Section 564(g) of the Act.Fact Sheet for Healthcare Providers:https://www.[employer]/sites/default/files/product/documents/Fact_Shee s_[place]_Kcnnrpmjh_Rdby_FMOR-EaX-1.pdfFact Sheet for Healthcare Patients:https://www.[employer]/sites/default/files/product/ documents/Fnsg_Kgguf_Gyccwgdx_Kwza_PZIY-MyT-5.pdfPerforming Laboratory:[facility], [place] [address]BTAH-JBVMXAG METER 2020-02-06 18:00:00 Test Item Value Reference Range Interpretation Comments POC-GLUCOSE METER 129 mg/dL 70-110 H : TESTED A T [facility] 6720 (BEAKER) (test code = KENYON [place] [facility], 1538) [address]: Loader Magazine Grinder/Techni martin ID = [id number] for ORLIN DELGADO [id number] 17:30:00 Test Item Value Reference Range Interpretation Comments PROCALCITONIN (BEAKER) (test code 0.18 ng/mL <0.05 H = 3036) SEPSIS RISK (ng/mL)Low: 0.05-0.50Intermediate: 0.51-2.00High: >=2.01HEPATIC FUNCTION [id number] 16:22:00 Test Item Value Reference Range Interpretation Comments TOTAL PROTEIN (BEAKER) (test code = 5.5 gm/dL 6.0-8.3 L 770) ALBUMIN (BEAKER) (test code = 1145) 3.1 g/dL 3.5-5.0 L BILIRUBIN TOTAL (BEAKER) (test code 0.7 mg/dL 0.2-1.2 = 377) BILIRUBIN DIRECT (BEAKER) (test 0.3 mg/dL 0.1-0.5 code = 706) ALKALINE PHOSPHATASE (BEAKER) (test 44 U/L 40-150 code = 346) AST (SGOT) (BEAKER) (test code = 21 U/L 5-34 353) ALT (SGPT) (BEAKER) (test code = 27 U/L 6-55 347) Loader Magazine Grinder ID - [id number] 16:22:00 Test Item Value Reference Range Interpretation Comments AMYLASE (BEAKER) (test code = 349) 33 U/L 25-125 Loader Magazine Grinder ID - [id number] 16:22:00 Test Item Value Reference Range Interpretation Comments LIPASE (BEAKER) (test code = 749) 6 U/L 8-78 L Loader Magazine Grinder ID - BSBASIC METABOLIC [id number] 16:22:00 Test Item Value Reference Range Interpretation Comments SODIUM (BEAKER) 143 meq/L 136-145 (test code = 381) POTASSIUM (BEAKER) 4.3 meq/L 3.5-5.1 (test code = 379) CHLORIDE (BEAKER) 104 meq/L 98-107 (test code = 382) CO2 (BEAKER) (test 31 meq/L 22-29 H code = 355) BLOOD UREA NITROGEN 60 mg/dL 7-21 H (BEAKER) (test code = 354) CREATININE (BEAKER) 1.59 mg/dL 0.57-1.25 H (test code = 358) GLUCOSE RANDOM 148 mg/dL 70-105 H (BEAKER) (test code = 652) CALCIUM (BEAKER) 8.5 mg/dL 8.4-10.2 (test code = 697) EGFR (BEAKER) (test 42 mL/min/1.73 ESTIMA HAWK GFR IS code = 1092) sq m NOT ACCURATE CREATININE CLEARANCE IN PREDICTING GLOMERULAR FILTRATION RATE . ESTIMATED GFR I S NOT APPLICABLE FOR DIALYSIS PATIEN TS. Loader Magazine Grinder ID - BSURINALYSIS W/ REFLEX URINE [id number] 16:17:00 Test Item Value Reference Range Interpretation Comments COLOR (BEAKER) (test code = 470) Light Yellow CLARITY (BEAKER) (test code = Clear 469) SPECIFIC GRAVITY UA (BEAKER) 1.014 1.001-1.035 (test code = 468) PH UA (BEAKER) (test code = 467) 5.5 5.0-8.0 PROTEIN UA (BEAKER) (test code = Negative Negative 464) GLUCOSE UA (BEAKER) (test code = Negative Negative 365) KETONES UA (BEAKER) (test code = Negative Negative 371) BILIRUBIN UA (BEAKER) (test code Negative Negative = 462) BLOOD UA (BEAKER) (test code = Trace Negative A 461) NITRITE UA (BEAKER) (test code = Negative Negative 465) LEUKOCYTE ESTERASE UA (BEAKER) Negative Negative (test code = 466) UROBILINOGEN UA (BEAKER) (test 0.2 mg/dL 0.2-1.0 code = 463) RBC UA (BEAKER) (test code = 3 /HPF 519) WBC UA (BEAKER) (test code = 3 /HPF 520) MUCUS (BEAKER) (test code = Rare 1574) SOURCE(BEAKER) (test code = 2795) Loader Magazine Grinder ID - [auto]Loader Magazine Grinder ID - [email or web address] Echo W/Doppler(CW/PW/Color)2020-02-06 15:27:49Ejection FractionSLEH ECHO HEARTLAB MKCKESSON CPACSInterface, External Ris In - 02/06/2020 3:28 PM CDTTransthoracic Echocardiography Report (TTE) Demographics Patient Name ANAM PURI Date of Study 02/06/2020 GENE Gender Male Visit Number [id number] Race Unknown Room Number 7516 Number Date of 1935 Referring DANI Bean Physician GRETA Age 84 year(s) 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 Amount - 2 mlHeight: 71 inches Weight: 68.04 kg (150 lbs) BSA: 1.87 m^2 BMI: 2 0.92 kg/m^2HR: 70 bpm BP: 128/67 mmHg Summary The [...] Previous Study No prior studies available for comparison. Signature Findings Technical Quality: Technically adequate exam. Left Ventricle LV endocardium is adequately visualized with IV ultrasound enhancing agent. The left ventricle is chamber size (by vol index) is normal (male - LVED vol - 34-74ml/m2). No evidence of LV hypertrophy. All of the LV segments contract normally [...] diameter) is normal . Pericardium No pericardial effusion is visualized. IVC/SVC/PA/PV/Pleural The estimated RA pressure by IVC dynamics 5-10mmHg . Chambers/Structures Left Atrium LA Volume: 57.84 ml LA Vol. Index: 31 ml/m^2 Left Ventricle LVIDd: 4.15 cm LVIDs: 2.47 cm LV Septum Diastolic: 0.87 cm LV PW Diastolic: 0.78 cm LV FS: 40.5 % LVEDV Vivas's:94.85 ml LVEDVI: 51 ml/m^2 LVOTDiameter: 2.04 cm Aorta Ao Root S of Shannon.: 3.1 cm Doppler/Quantitative Measurements Mitral Valve MV Peak E-Wave: 0.68 m/s MV Peak A-Wave: 0.55 m/sE/A Ratio: 1.24 Peak Gradient: 1.84 mmHg Deceleration [...] TR Velocity: 2.9 m/s TR Gradient: 33.58 mmHgMonrovia Community HospitalPOCT-GLUCOSE [id number] 12:27:00 Test Item Value Reference Range Interpretation Comments POC-GLUCOSE METER 154 mg/dL 70-110 H : Notified RN/MD: (SINDY) (test code = TESTED AT [facility] [id number]) [facility], [address]: Loader Magazine Grinder/Techni martin ID = [id number] for ROYAL SHAFFER CBC W/PLT COUNT & AUTO [id number] 10:14:00 Test Item Value Reference Range Interpretation Comments WHITE BLOOD CELL COUNT (BEAKER) 19.5 K/ L 3.5-10.5 H (test code = 775) RED BLOOD CELL COUNT (BEAKER) 5.52 M/ L 4.63-6.08 (test code = 761) HEMOGLOBIN (BEAKER) (test code = 17.3 GM/DL 13.7-17.5 410) HEMATOCRIT (BEAKER) (test code = 51.9 % 40.1-51.0 H 411) MEAN CORPUSCULAR VOLUME (BEAKER) 94.0 fL 79.0-92.2 H (test code = 753) MEAN CORPUSCULAR HEMOGLOBIN 31.3 pg 25.7-32.2 (BEAKER) (test code = 751) MEAN CORPUSCULAR HEMOGLOBIN CONC 33.3 GM/DL 32.3-36.5 (BEAKER) (test code = 752) RED CELL DISTRIBUTION WIDTH 12.9 % 11.6-14.4 (BEAKER) (test code = 412) PLATELET COUNT (BEAKER) (test 190 K/CU MM 150-450 code = 756) MEAN PLATELET VOLUME (BEAKER) 11.0 fL 9.4-12.4 (test code = 754) NUCLEATED RED BLOOD CELLS 0 /100 WBC 0-0 (BEAKER) (test code = 413) (CELLAVISION MANUAL DIFF)2020-02-06 10:14:00 Test Item Value Reference Range Interpretation Comments NEUTROPHILS - REL 85 % (CELLAVISION)(BEAKER) (test code = 2816) LYMPHOCYTES - REL 3 % (CELLAVISION)(BEAKER) (test code = 2817) MONOCYTES - REL 4 % (CELLAVISION)(BEAKER) (test code = 2818) BANDS - REL (CELLAVISION)(BEAKER) 6 % 0-10 (test code = 2826) ATYPICAL LYMPHOCYTES - REL 2 % 0-0 H (CELLAVISION)(BEAKER) (test code = 2829) NEUTROPHILS - ABS 16.58 K/ul 1.78-5.38 H (CELLAVISION)(BEAKER) (test code = 2830) LYMPHOCYTES - ABS 0.59 K/ul 1.32-3.57 L (CELLAVISION)(BEAKER) (test code = 2831) MONOCYTES - ABS 0.78 K/uL 0.30-0.82 (CELLAVISION)(BEAKER) (test code = 2832) BANDS - ABS (CELLAVISION)(BEAKER) 1.17 K/uL 0.00-0.80 H (test code = 2840) ATYPICAL LYMPHOCYTES - ABS 0.39 K/uL 0.00-0.00 H (CELLAVISION)(BEAKER) (test code = 2858) TOTAL COUNTED (BEAKER) (test code 100 = 1351) WBC MORPHOLOGY (BEAKER) (test code Normal = 487) PLT MORPHOLOGY (BEAKER) (test code Normal = 486) ANISOCYTOSIS (BEAKER) (test code = 1+ few 961) MACROCYTES (BEAKER) (test code = 1+ few 964) ARTIFACT (CELLAVISION)(BEAKER) Present (test code = 3432) PLATELET CONCENTRATION Adequate (CELLAVISION)(BEAKER) (test code = 3438) Loader Magazine Grinder ID - Barbra OverholtUser comments: Slide comments:RAD, CHEST, 1 VIEW, NON [id number] 10:05:00Reason for exam:->RespShould this be performed at the bedside?->YesS[facility]THER[facility] : 1935 Sex: MFINAL REPORT RAD, CHEST, 1 VIEW, NON DEPT INDICATION: Resp COMPARISON: February 04, 2020 FINDINGS: Portable frontal view of the chest. IMPRESSION: Support Lines: Feeding tube descends below the diaphragm Lungs and pleura: Bibasilar atelectasis and airspace disease, unchanged. No pneumothorax.Heart and mediastinum: Stable contours.Additional findings: None. Signed: Rand Graham Verified Date/Time: 02/06/2020 10:05:24 Reading Location: [facility] Radiology Reading Room POCT-GLUCOSE METER 2020-02-06 08:43:00 Test Item Value Reference Range Interpretation Comments POC-GLUCOSE METER 136 mg/dL 70-110 H : TESTED A T [facility] 6720 (BEAKER) (test code = [facility] [place], 1538) [address]: Loader Magazine Grinder/Techni martin ID = [id number] for ORLIN DELGADO [id number] 05:07:00 Test Item Value Reference Range Interpretation Comments MAGNESIUM (BEAKER) 2.5 mg/dL 1.6-2.6 Specimen slightly (test code = 627) hemolyzed Loader Magazine Grinder ID - RONNY [id number] 05:07:00 Test Item Value Reference Range Interpretation Comments PHOSPHORUS (BEAKER) 3.6 mg/dL 2.3-4.7 Specimen slightly (test code = 604) hemolyzed Loader Magazine Grinder ID - RONNY LBASIC METABOLIC [id number] 05:07:00 Test Item Value Reference Range Interpretation Comments SODIUM (BEAKER) 142 meq/L 136-145 (test code = 381) POTASSIUM (BEAKER) 4.4 meq/L 3.5-5.1 Specimen slightly (test code = 379) hemolyzed CHLORIDE (BEAKER) 104 meq/L 98-107 (test code = 382) CO2 (BEAKER) (test 27 meq/L 22-29 code = 355) BLOOD UREA NITROGEN 58 mg/dL 7-21 H (BEAKER) (test code = 354) CREATININE (BEAKER) 1.66 mg/dL 0.57-1.25 H Specimen slightly (test code = 358) hemolyzed GLUCOSE RANDOM 153 mg/dL 70-105 H (BEAKER) (test code = 652) CALCIUM (BEAKER) 8.9 mg/dL 8.4-10.2 (test code = 697) EGFR (BEAKER) (test 40 mL/min/1.73 ESTIMA HAWK GFR IS code = 1092) sq m NOT ACCURATE CREATININE CLEARANCE IN PREDICTING GLOMERULAR FILTRATION RATE . ESTIMATED GFR I S NOT APPLICABLE FOR DIALYSIS PATIEN TS. Loader Magazine Grinder ID - RONNY LPOCT-GLUCOSE [id number] 21:48:00 Test Item Value Reference Range Interpretation Comments POC-GLUCOSE METER 193 mg/dL 70-110 H : TESTED A T [facility] 6720 (BEAKER) (test code = [facility] [place], 153) [address]: Loader Magazine Grinder/Techni martin ID = [id number] for [place] REL[place], [place] POCT-GLUCOSE [id number] 16:07:00 Test Item Value Reference Range Interpretation Comments POC-GLUCOSE METER 148 mg/dL 70-110 H : TESTED Corrina Yoder [facility] 6720 (BEAKER) (test code = [place], 1538) [address]: Loader Magazine Grinder/Techni martin ID = [id number] for An Yanelis woodson SPUTUM CULTURE + GRAM [id number] 15:29:00 Test Item Value Reference Range Interpretation Comments CULTURE (BEAKER) 4+ Normal respiratory (test code = 1095) ricardo present GRAM STAIN RESULT 2+ White blood cells (BEAKER) (test code = seen 1123) GRAM STAIN RESULT 5-10 epithelial cells (BEAKER) (test code = 31301) GRAM STAIN RESULT 1+ gram positive cocci (BEAKER) (test code = in pairs and clusters 75992) CBC W/PLT COUNT & AUTO [id number] 10:11:00 Test Item Value Reference Range Interpretation Comments WHITE BLOOD CELL COUNT (BEAKER) 19.7 K/ L 3.5-10.5 H (test code = 775) RED BLOOD CELL COUNT (BEAKER) 5.36 M/ L 4.63-6.08 (test code = 761) HEMOGLOBIN (BEAKER) (test code = 16.6 GM/DL 13.7-17.5 410) HEMATOCRIT (BEAKER) (test code = 50.4 % 40.1-51.0 411) MEAN CORPUSCULAR VOLUME (BEAKER) 94.0 fL 79.0-92.2 H (test code = 753) MEAN CORPUSCULAR HEMOGLOBIN 31.0 pg 25.7-32.2 (BEAKER) (test code = 751) MEAN CORPUSCULAR HEMOGLOBIN CONC 32.9 GM/DL 32.3-36.5 (BEAKER) (test code = 752) RED CELL DISTRIBUTION WIDTH 12.8 % 11.6-14.4 (BEAKER) (test code = 412) PLATELET COUNT (BEAKER) (test 199 K/CU MM 150-450 code = 756) MEAN PLATELET VOLUME (BEAKER) 10.9 fL 9.4-12.4 (test code = 754) NUCLEATED RED BLOOD CELLS 0 /100 WBC 0-0 (BEAKER) (test code = 413) (CELLAVISION MANUAL DIFF)2020-02-05 10:11:00 Test Item Value Reference Range Interpretation Comments NEUTROPHILS - REL 90 % (CELLAVISION)(BEAKER) (test code = 2816) LYMPHOCYTES - REL 3 % (CELLAVISION)(BEAKER) (test code = 2817) MONOCYTES - REL 7 % (CELLAVISION)(BEAKER) (test code = 2818) NEUTROPHILS - ABS 17.73 K/ul 1.78-5.38 H (CELLAVISION)(BEAKER) (test code = 2830) LYMPHOCYTES - ABS 0.59 K/ul 1.32-3.57 L (CELLAVISION)(BEAKER) (test code = 2831) MONOCYTES - ABS 1.38 K/uL 0.30-0.82 H (CELLAVISION)(BEAKER) (test code = 2832) TOTAL COUNTED (BEAKER) (test code 100 = 1351) RBC MORPHOLOGY (BEAKER) (test code Normal = 762) SMUDGE CELLS (BEAKER) (test code = Present 1371) GIANT PLATELETS (BEAKER) (test Present code = 313) PLATELET CONCENTRATION Adequate (CELLAVISION)(BEAKER) (test code = 3438) Loader Magazine Grinder ID - Mey Vijay comments: Slide comments:BASIC METABOLIC PANEL 2020-02-05 06:46:00 Test Item Value Reference Range Interpretation Comments SODIUM (BEAKER) 141 meq/L 136-145 (test code = 381) POTASSIUM (BEAKER) 4.3 meq/L 3.5-5.1 (test code = 379) CHLORIDE (BEAKER) 104 meq/L 98-107 (test code = 382) CO2 (BEAKER) (test 28 meq/L 22-29 code = 355) BLOOD UREA NITROGEN 42 mg/dL 7-21 H (BEAKER) (test code = 354) CREATININE (BEAKER) 1.38 mg/dL 0.57-1.25 H (test code = 358) GLUCOSE RANDOM 178 mg/dL 70-105 H (BEAKER) (test code = 652) CALCIUM (BEAKER) 8.6 mg/dL 8.4-10.2 (test code = 697) EGFR (BEAKER) (test 49 mL/min/1.73 ESTIMA HAWK GFR IS code = 1092) sq m NOT ACCURATE CREATININE CLEARANCE IN PREDICTING GLOMERULAR FILTRATION RATE . ESTIMATED GFR I S NOT APPLICABLE FOR DIALYSIS PATIEN TS. Loader Magazine Grinder ID - PIMARTY [id number] 06:46:00 Test Item Value Reference Range Interpretation Comments MAGNESIUM (BEAKER) (test code = 2.6 mg/dL 1.6-2.6 627) Loader Magazine Grinder ID - RONNY [id number] 06:46:00 Test Item Value Reference Range Interpretation Comments PHOSPHORUS (BEAKER) (test code = 4.1 mg/dL 2.3-4.7 604) Loader Magazine Grinder ID - PIMARTY LVANCOMYCIN LEVEL, [id number] 06:21:00 Test Item Value Reference Range Interpretation Comments VANCOMYCIN TROUGH (BEAKER) (test 16.5 ug/mL 10.0-20.0 code = 522) Loader Magazine Grinder ID - RONNY LPOCT-GLUCOSE [id number] 00:16:00 Test Item Value Reference Range Interpretation Comments POC-GLUCOSE METER 149 mg/dL 70-110 H : TESTED A [facility] 6720 ([email or web address]) (test code = [employer] [facility] [place] [facility], 1538) [address]: Loader Magazine Grinder/Techni martin ID = [id number] for EDUARDO HALE [id number] 19:03:00 Test Item Value Reference Range Interpretation Comments MAGNESIUM (BEAKER) 2.5 mg/dL 1.6-2.6 Specimen slightly (test code = 627) hemolyzed [employer] Grinder ID - [id number] 19:03:00 Test Item Value Reference Range Interpretation Comments POTASSIUM (BEAKER) 4.4 meq/L 3.5-5.1 Specimen slightly (test code = 379) hemolyzed [employer] Grinder ID - DBPOCT-GLUCOSE [id number] 17:42:00 Test Item Value Reference Range Interpretation Comments POC-GLUCOSE METER 156 mg/dL 70-110 H : TESTED A T [facility] 6720 ([email or web address]) (test code = [facility] [place] [facility], 153) [address]: Load[employer] Magazine Grinder/Techni martin ID = [id number] for ROYAL SHAFFER POCT-GLUCOSE [id number] 13:32:00 Test Item Value Reference Range Interpretation Comments POC-GLUCOSE METER 150 mg/dL 70-110 H : Notified RN/MD: (SINDY) (test code = TESTED AT [facility] 6720 1538) [facility] [facility], [address]: Loader Magazine Grinder/Techni martin ID = [id number] for ROYAL SHAFFER [id number] 11:45:00 Test Item Value Reference Range Interpretation Comments PROCALCITONIN (SINDY) (test code 0.13 ng/mL <0.05 H = 3036) SEPSIS RISK (ng/mL)Low: 0.05-0.50Intermediate: 0.51-2.00High: >=2.01RAD, CHEST, 1 VIEW, NON [id number] 11:39:00Reason for exam:- >intervalShould this be performed at the bedside?->Yes [facility] 1935 Sex: MFINAL REPORT TECHNIQUE: Frontal view of the chest. INDICATION: Inter shannon. COMPARISON: Chest radiograph 02/02/2020. FINDINGS: LINES/TUBES: Unchanged feeding tube. Peripheral IV projects over the right upper arm. LUNGS: New linear atelectasis in the right lower lung zone. Persistent retrocardiac airspace opacities. PLEURA: Unchanged to slightly increased small left pleural effusion. No pneumothorax. HEART AND MEDIASTINUM: Cardiomediastinal silhouette is unchanged. BONES AND SOFT TISSUES: Unremarkable. IMPRESSION:Lines/tubes as above. New atelectasis in the right lower lung zone. Unchanged to slightly increased small left pleural effusion. Otherwise, no significant change since 02/02/2020. Signed: Jim Ferrelljose e Verified Date/Time: 02/04/2020 11:39:13 Reading Location: [facility] B1 C013Y CT Body Reading Room CT, BRAIN, WITHOUT [id number] 07:40:00Unlisted Reason for Exam - Click Yes and Enter Reason Below->No[facility] : 1935 Sex: MFINAL REPORT CT, BRAIN, WITHOUT CONTRAST CLINICAL INDICATION: Subar achnoid hemorrhage, follow-up COMPARISON: February 02, 2020 TECHNIQUE: Noncontrast axial CT imaging of the brain and skull. DOSE REDUCTION: Dose modulation, iterative reconstruction, and/or weight-based adjustment of the mA/kV was utilized to reduce the radiation dose to as low as reasonably achievable. FINDINGS:No significant interval change in bilateral cerebral convexity subarachnoid hemorrhage and layering subdural hemorrhage along the posterior falx and tentorium. No new intracranial hemorrhage. Mild senescent parenchymal volume loss and presumed mild microvascular ischemic changes of the periventricular and subcortical white matter similarly unchanged. Layering intraventricular hematoma is unchanged without associated hydrocephalus. Orbits are within normal limits. No obstructive paranasalsinus disease. Right nasogastric tube. IMPRESSION: No significant interval change. Bilateral cerebra l convexity subarachnoid hemorrhage within layering subdural hematoma along the posterior falx and bilateral tentorium If there is persistent clinical concern for intracranial pathology, MR examinationis recommended for further characterization. Signed: Rand Graham MDReport Verified Date/Time: 07:40:31 Reading Location: [facility] B1 C013V Neuro Reading Room C METABOLIC [id number] 05:42:00 Test Item Value Reference Range Interpretation Comments SODIUM (BEAKER) 138 meq/L 136-145 (test code = 381) POTASSIUM (BEAKER) 3.9 meq/L 3.5-5.1 (test code = 379) CHLORIDE (BEAKER) 101 meq/L 98-107 (test code = 382) CO2 (BEAKER) (test 28 meq/L 22-29 code = 355) BLOOD UREA NITROGEN 27 mg/dL 7-21 H (BEAKER) (test code = 354) CREATININE (BEAKER) 0.84 mg/dL 0.57-1.25 (test code = 358) GLUCOSE RANDOM 138 mg/dL 70-105 H (BEAKER) (test code = 652) CALCIUM (BEAKER) 8.6 mg/dL 8.4-10.2 (test code = 697) EGFR (BEAKER) (test 87 mL/min/1.73 ESTIMA HAWK GFR IS code = 1092) sq m NOT ACCURATE CREATININE CLEARANCE IN PREDICTING GLOMERULAR FILTRATION RATE . ESTIMATED GFR I S NOT APPLICABLE FOR DIALYSIS PATIEN TS. Loader Magazine Grinder ID - SUKHDEV [id number] 05:42:00 Test Item Value Reference Range Interpretation Comments MAGNESIUM (BEAKER) (test code = 2.1 mg/dL 1.6-2.6 627) Loader Magazine Grinder ID - SUKHDEV [id number] 05:42:00 Test Item Value Reference Range Interpretation Comments PHOSPHORUS (BEAKER) (test code = 2.4 mg/dL 2.3-4.7 604) Loader Magazine Grinder ID - SUKHDEV MCBC W/PLT COUNT & AUTO [id number] 05:09:00 Test Item Value Reference Range Interpretation Comments WHITE BLOOD CELL COUNT (BEAKER) 14.5 K/ L 3.5-10.5 H (test code = 775) RED BLOOD CELL COUNT (BEAKER) 5.32 M/ L 4.63-6.08 (test code = 761) HEMOGLOBIN (BEAKER) (test code = 16.5 GM/DL 13.7-17.5 410) HEMATOCRIT (BEAKER) (test code = 49.0 % 40.1-51.0 411) MEAN CORPUSCULAR VOLUME (BEAKER) 92.1 fL 79.0-92.2 (test code = 753) MEAN CORPUSCULAR HEMOGLOBIN 31.0 pg 25.7-32.2 (BEAKER) (test code = 751) MEAN CORPUSCULAR HEMOGLOBIN CONC 33.7 GM/DL 32.3-36.5 (BEAKER) (test code = 752) RED CELL DISTRIBUTION WIDTH 12.4 % 11.6-14.4 (BEAKER) (test code = 412) PLATELET COUNT (BEAKER) (test 203 K/CU MM 150-450 code = 756) MEAN PLATELET VOLUME (BEAKER) 10.8 fL 9.4-12.4 (test code = 754) NUCLEATED RED BLOOD CELLS 0 /100 WBC 0-0 (BEAKER) (test code = 413) NEUTROPHILS RELATIVE PERCENT 85 % (BEAKER) (test code = 429) LYMPHOCYTES RELATIVE PERCENT 6 % (BEAKER) (test code = 430) MONOCYTES RELATIVE PERCENT 8 % (BEAKER) (test code = 431) EOSINOPHILS RELATIVE PERCENT 0 % (BEAKER) (test code = 432) BASOPHILS RELATIVE PERCENT 0 % (BEAKER) (test code = 437) NEUTROPHILS ABSOLUTE COUNT 12.28 K/ L 1.78-5.38 H (BEAKER) (test code = 670) LYMPHOCYTES ABSOLUTE COUNT 0.92 K/ L 1.32-3.57 L (BEAKER) (test code = 414) MONOCYTES ABSOLUTE COUNT (BEAKER) 1.16 K/ L 0.30-0.82 H (test code = 415) EOSINOPHILS ABSOLUTE COUNT 0.01 K/ L 0.04-0.54 L (BEAKER) (test code = 416) BASOPHILS ABSOLUTE COUNT (BEAKER) 0.02 K/ L 0.01-0.08 (test code = 417) IMMATURE GRANULOCYTES-RELATIVE 1 % 0-1 PERCENT (BEAKER) (test code = 2801) POCT-GLUCOSE [id number] 00:28:00 Test Item Value Reference Range Interpretation Comments POC-GLUCOSE METER 125 mg/dL 70-110 H : TESTED Corrina Yoder [facility] 6720 (BEAKER) (test code = [place], 1538) [address]: Loader Magazine Grinder/Techni martin ID = [id number] for [facility] REL[facility], [place] POCT-GLUCOSE [id number] 18:05:00 Test Item Value Reference Range Interpretation Comments POC-GLUCOSE METER 154 mg/dL 70-110 H : Notified RN/MD: (FERNIEAKER) (test code = TESTED AT [place] [address] 1538) [facility], [address]: Loader Magazine Grinder/Techni martin ID = [id number] for ROYAL SHAFFER POCT-GLUCOSE [id number] 12:14:00 Test Item Value Reference Range Interpretation Comments POC-GLUCOSE METER 119 mg/dL 70-110 H : Notified RN/MD: (FERNIEAKER) (test code = TESTED AT [place] [address] 1538) [facility], [address]: Loader Magazine Grinder/Techni martin ID = [id number] for ORLIN DELGADO URINALYSIS W/ REFLEX URINE [id number] 08:03:00 Test Item Value Reference Range Interpretation Comments COLOR (BEAKER) (test code = 470) Yellow CLARITY (BEAKER) (test code = 469) Clear SPECIFIC GRAVITY UA (BEAKER) (test 1.017 1.001-1.035 code = 468) PH UA (BEAKER) (test code = 467) 6.0 5.0-8.0 PROTEIN UA (BEAKER) (test code = 10 mg/dL Negative A 464) GLUCOSE UA (BEAKER) (test code = Negative Negative 365) KETONES UA (BEAKER) (test code = 40 mg/dL Negative A 371) BILIRUBIN UA (BEAKER) (test code = Negative Negative 462) BLOOD UA (BEAKER) (test code = 461) Negative Negative NITRITE UA (BEAKER) (test code = Negative Negative 465) LEUKOCYTE ESTERASE UA (BEAKER) Negative Negative (test code = 466) UROBILINOGEN UA (BEAKER) (test code 2.0 mg/dL 0.2-1.0 H = 463) RBC UA (BEAKER) (test code = 519) 1 /HPF WBC UA (BEAKER) (test code = 520) < /HPF BACTERIA (BEAKER) (test code = 517) Rare MUCUS (BEAKER) (test code = 1574) Rare SOURCE(BEAKER) (test code = 2795) Loader Magazine Grinder ID - [auto]Loader Magazine Grinder ID - techPOCT-GLUCOSE [id number] 07:36:00 Test Item Value Reference Range Interpretation Comments POC-GLUCOSE METER 117 mg/dL 70-110 H : TESTED A T [facility] 6720 (BEAKER) (test code = [place], [address]) [address]: Loader Magazine Grinder/Techni martin ID = [id number] for ORLIN DELGADO BASIC METABOLIC [id number] 06:59:00 Test Item Value Reference Range Interpretation Comments SODIUM (BEAKER) 139 meq/L 136-145 (test code = 381) POTASSIUM (BEAKER) 3.9 meq/L 3.5-5.1 (test code = 379) CHLORIDE (BEAKER) 105 meq/L 98-107 (test code = 382) CO2 (BEAKER) (test 24 meq/L 22-29 code = 355) BLOOD UREA NITROGEN 22 mg/dL 7-21 H (BEAKER) (test code = 354) CREATININE (BEAKER) 0.76 mg/dL 0.57-1.25 (test code = 358) GLUCOSE RANDOM 120 mg/dL 70-105 H (BEAKER) (test code = 652) CALCIUM (BEAKER) 8.3 mg/dL 8.4-10.2 L (test code = 697) EGFR (BEAKER) (test 98 mL/min/1.73 ESTIMA HAWK GFR IS code = 1092) sq m NOT ACCURATE CREATININE CLEARANCE IN PREDICTING GLOMERULAR FILTRATION RATE . ESTIMATED GFR I S NOT APPLICABLE FOR DIALYSIS PATIEN TS. Loader Magazine Grinder ID - [id number] 06:59:00 Test Item Value Reference Range Interpretation Comments MAGNESIUM (BEAKER) (test code = 2.0 mg/dL 1.6-2.6 627) Loader Magazine Grinder ID - [id number] 06:59:00 Test Item Value Reference Range Interpretation Comments PHOSPHORUS (BEAKER) (test code = 2.7 mg/dL 2.3-4.7 604) Loader Magazine Grinder ID - EDASIPOCT-GLUCOSE [id number] 06:24:00 Test Item Value Reference Range Interpretation Comments POC-GLUCOSE METER 137 mg/dL 70-110 H : Notified RN/MD: (SINDY) (test code = TESTED AT [facility] 6720 1538) [place], [address]: Loader Magazine Grinder/Techni martin ID = [id number] for BETSYBELÉN EDMONDSON LACTIC ACID, [id number] 05:23:00 Test Item Value Reference Range Interpretation Comments LACTATE BLOOD VENOUS 1.10 mmol/L 0.50-2.20 Specime n slightly (2) (BEAKER) (test hemolyzed code = 2872) Loader Magazine Grinder ID - RONNY LCBC W/PLT COUNT & AUTO [id number] 05:14:00 Test Item Value Reference Range Interpretation Comments WHITE BLOOD CELL COUNT (BEAKER) 14.4 K/ L 3.5-10.5 H (test code = 775) RED BLOOD CELL COUNT (BEAKER) 5.34 M/ L 4.63-6.08 (test code = 761) HEMOGLOBIN (BEAKER) (test code = 16.6 GM/DL 13.7-17.5 410) HEMATOCRIT (BEAKER) (test code = 49.8 % 40.1-51.0 411) MEAN CORPUSCULAR VOLUME (BEAKER) 93.3 fL 79.0-92.2 H (test code = 753) MEAN CORPUSCULAR HEMOGLOBIN 31.1 pg 25.7-32.2 (BEAKER) (test code = 751) MEAN CORPUSCULAR HEMOGLOBIN CONC 33.3 GM/DL 32.3-36.5 (BEAKER) (test code = 752) RED CELL DISTRIBUTION WIDTH 12.4 % 11.6-14.4 (BEAKER) (test code = 412) PLATELET COUNT (BEAKER) (test 203 K/CU MM 150-450 code = 756) MEAN PLATELET VOLUME (BEAKER) 11.0 fL 9.4-12.4 (test code = 754) NUCLEATED RED BLOOD CELLS 0 /100 WBC 0-0 (BEAKER) (test code = 413) NEUTROPHILS RELATIVE PERCENT 86 % (BEAKER) (test code = 429) LYMPHOCYTES RELATIVE PERCENT 5 % (BEAKER) (test code = 430) MONOCYTES RELATIVE PERCENT 8 % (BEAKER) (test code = 431) EOSINOPHILS RELATIVE PERCENT 0 % (BEAKER) (test code = 432) BASOPHILS RELATIVE PERCENT 0 % (BEAKER) (test code = 437) NEUTROPHILS ABSOLUTE COUNT 12.39 K/ L 1.78-5.38 H (BEAKER) (test code = 670) LYMPHOCYTES ABSOLUTE COUNT 0.74 K/ L 1.32-3.57 L (BEAKER) (test code = 414) MONOCYTES ABSOLUTE COUNT (BEAKER) 1.16 K/ L 0.30-0.82 H (test code = 415) EOSINOPHILS ABSOLUTE COUNT 0.01 K/ L 0.04-0.54 L (BEAKER) (test code = 416) BASOPHILS ABSOLUTE COUNT (BEAKER) 0.02 K/ L 0.01-0.08 (test code = 417) IMMATURE GRANULOCYTES-RELATIVE 1 % 0-1 PERCENT (FERNIEAKER) (test code = 2801) Mid [id number] 04:24:37Yoli Gallagher NP 02/03/2020 5:27 AMMid line Date/Time: 02/03/2020 4:24 AMPerformed by: Yoli Gallagher NPAuthorized by: Yoli Gallagher NP Patient identity confirmed: arm band, provided demographic data and hospital-assigned identification numberIndications: vascular accessAnesthesia: local infiltration Anesthesia:Local Anesthetic: lidocaine 1% without epinephrineAnesthetic total: 3 mL Sedation:Patient sedated: no Preparation: skin prepped with 2% chlorhexidineLocation: R basilic vein.Patient position: flatCatheter type: double lumenUltrasound guidance: yesSterile ultrasound techniques: sterile gel and sterile probe covers were usedNumber of attempts: 2Post-procedure: dressing appliedAssessment: blood return through all portsImmediate Post-Procedure Note Date/Time: 02/03/2020 4:25 AMAssistants to the procedure: NonePre-procedure diagnosis: CVAPost-procedure diagnosis: CVAProcedures Performed: Mid lineSpecimens removed: NoneEstimated blood loss (mL): NoneComplications: NoneType of anesthesia: NoneGrafts or Implants: None Comments: Provena Midline double lumen cut at 14cmLOT [id number] 03/12/21[facility] POCT-GLUCOSE [id number] 00:33:00 Test Item Value Reference Range Interpretation Comments POC-GLUCOSE METER 121 mg/dL 70-110 H : Notified RN/MD: (SINDY) (test code = TESTED AT [facility] 6720 1538) [facility], [address]: Loader Magazine Grinder/Techni martin ID = [id number] for IH SHANIQUE TORREZ RAD, CHEST, 1 VIEW, NON [id number] 21:12:00Reason for exam:->sepsisShould this be performed at the bedside?->Yes [facility] 1935 Sex: MFINAL REPORT History: Sepsis. Comparison: None. Findings: A single view of the chest is submitted. The cardiac silhouette is within normal limits for size. There is atherosclerotic calcification of the tortuous aorta. Retrocardiac opacity in the left lung may reflectatelectasis but pneumonitis could be present given the patient's history. The lungs are otherwise clear. There is no pneumothorax, large pleural effusion, evidence of overt pulmonary edema or acute bony abnormality. An enteric tube traverses examination to the upper abdomen. Signed: Salima Miller MDReport Verified Date/Time: 02/02/2020 21:12:07 [id number] 20:27:00 Test Item Value Reference Range Interpretation Comments PROCALCITONIN (BEAKER) (test code 0.08 ng/mL <0.05 H = 3036) SEPSIS RISK (ng/mL)Low: 0.05-0.50Intermediate: 0.51-2.00High: >=2.01LACTIC ACID, [id number] 20:12:00 Test Item Value Reference Range Interpretation Comments LACTATE BLOOD VENOUS 2.16 mmol/L 0.50-2.20 Specime n slightly (2) (BEAKER) (test hemolyzed code = 2872) Loader Magazine Grinder ID - BSHemoglobin and [id number] 20:02:00 Test Item Value Reference Range Interpretation Comments Hemoglobin (test code = 17.6 13.7- 17.5 GM/DL H 786-4) Hematocrit (test code = 52.2 % 40.1-51 H 4544-3) JUDI (test code = JUDI) Loader Magazine Grinder ID - [id number] Lab Interpretation (test Abnormal code = 37608-2) [facility] HospitalHEMOGLOBIN AND [id number] 20:02:00 Test Item Value Reference Range Interpretation Comments HEMOGLOBIN (BEAKER) (test code = 17.6 GM/DL 13.7-17.5 H 410) HEMATOCRIT (BEAKER) (test code = 52.2 % 40.1-51.0 H 411) Loader Magazine Grinder ID - [id number]-GLUCOSE [id number] 19:45:00 Test Item Value Reference Range Interpretation Comments POC-GLUCOSE METER 125 mg/dL 70-110 H : Notified RN/MD: (BEAKER) (test code = TESTED AT [facility] 6720 1538) [facility], [address]: Loader Magazine Grinder/Techni martin ID = [id number] for BELÉN CARMICHAEL CT, BRAIN, WITHOUT [id number] 19:26:00Unlisted Reason for Exam - Click Yes and Enter Reason Below->No [facility] 1935 Sex: MFINAL REPORT CT, BRAIN, WITHOUT CONTRAST INDICATION: Altered mental status TECHNIQUE: Noncontrast axial imaging was obtained from the vertex to the skull base. Axial images were reconstructed using a bone algorithm. DOSE REDUCTION: Dose modulation, iterative reconstruction, and/or weight-based adjustment of the mA/kV was utilized to reduce the radiation dose to as lowas reasonably achievable. COMPARISON: CT 02/02/2020 at 7:58 AM FINDINGS: Intracranial: Diffuse subarachnoid hemorrhage, as well as subdural hematoma along the posterior falx and bilateral tentorial leaflets, have slightly increased since the prior exam. Similar intraventricular extension. The ventricular caliber is minimally increased, with the third ventricle measuring 1.3 cm in maximum transverse diameter compared to 1.2 cm on the prior exam. Left temporal horn remains mildly prominent. No evidence of acute territorial infarct. No mass effect. Osseous structures: No fracture. No suspicious lesion. Paranasal sinuses and mastoid air cells: No evidence of sinusitis. Mastoids are clear. Orbital contents: Globes are intact. IMPRESSION: Slightly increased extent of subarachnoid hemorrhage and subdural hematoma along the posterior falx and tentorium. Similar intraventricular extension with minimally increased ventricular caliber. Signed: Adele Guadalupe MDReport Verified Date/Time: 02/02/2020 19:26:54 EEG AWAKE/ASLEEP AND [id number] 18:33:00Reason for exam:->ConfusionShould this be performed at the bedside?->Yes [facility] : 1935 Sex: MEEG report [facility] DATE OF TEST: 02/02/20 DATE OF REPORT: 02/02/20 ACC: [id number] Start time: 1555 Stop time: 1616 ICD-10: R41.82 CPT: 87832 HISTORY: 84 y/o male with hx of HTNand HLD who was transferred here from OSH due to BL SAH. Per reports, patient had abdominal pain, neck pain, and transient headache on Thursday night associated with NV. Denies fever or focal deficit. No recent head trauma or fall. Pt started to have mild confusion and dizziness the next day. Pt was in OSH and found to have bilateral small SAH & transferred here for higher level of care. Pt complains of occipital headache. No history of seizures. MEDICATIONS: Lisinopril, Nimodipine, Quetiapine, Senna, NS TECHNICAL SUMMARY: This is a digital video EEG recorded with 32 input channels reviewed with bipolar and referential montages using the modified combinatorial system nomenclature. DESCRIPTION OF RECORD: During the maximally alert state, no posterior dominant rhythm was seen. The background consisted of 1-2 Hz delta waveforms with superimposed spindle like waveforms. The EEG demonstrated state changes and reactivity. No stage II sleep structures were seen. HV: Hyperventilation was not performed. PHOTIC STIMULATION: Flash stimulation was done from 1-30 Hz; no photic driving was seen; photoparoxysmal responses were absent. IMPRESSION: Abnormal Lethargic EEG Continuous slow, generalized CLINICAL CORRELATION: This EEG is consistent with a moderate encephalopathy. No areas of focal dysfunction or epileptiform discharges were seen. An EEG without epileptiform discharges does not exclude the possibility of epilepsy. If the clinical suspicion of epilepsy remains, consider additional EEG recordings. José Miguel Youssef MD, MS Clinical Neurophysiology/Epilepsy Attending EEG AWAKE/ASLEEP 2020-02-02 18:33:00Interface, External Ris In - 02/02/2020 6:33 PM CDTEEG report [facility] DATE OF TEST: 02/02/20 DATE OF REPORT: 02/02/20 ACC: [id number] Start time: 1555 Stop time: 1616 ICD-10: R41.82 CPT: 40319 HISTORY: 84 y/o male with hx of HTN and HLD who was transferred here from OSH due to BL SAH. Per reports, patient had abdominal pain, neck pain, and transient headache on Thursday night associated with NV. Denies fever or focal deficit. No recent head trauma or fall. Pt started to have mild confusion and dizziness the next day. Pt was in OSH and found to have bilateral small SAH & transferred here for higher level of care. Pt complains of occipital headache. No history of seizures. MEDICATIONS: Lisinopril, Nimodipine, Quetiapine, Senna, NS TECHNICAL SUMMARY: This is a digital video EEG recorded with 32 input channels reviewed with bipolar and referential montages using the modified combinatorial system nomenclature. DESCRIPTION OF RECORD: During the maximally alert state, noposterior dominant rhythm was seen. The background consisted of 1-2 Hz delta waveforms with superimposed spindle like waveforms. The EEG demonstrated state changes and reactivity. No stage II sleep structures were seen. HV: Hyperventilation was not performed. PHOTIC STIMULATION: Flash stimulation was done from 1-30 Hz; no photic driving was seen; photoparoxysmal responses were absent. IMPRESSION: Abnormal Lethargic EEG Continuous slow, generalized CLINICAL CORRELATION: This EEG is consistent with a moderate encephalopathy. No areas of focal dysfunction or epileptiform discharges were seen. An EEG without epileptiform discharges does not exclude the possibility of epilepsy. If the clinical suspicion of epilepsy remains, consider additional EEG recordings. José Miguel Youssef MD, MS Clinical Neurophysiology/Epilepsy [facility]ending [facility] REFLEX URINE CULTURE 2020-02-02 17:52:00 Test Item Value Reference Range Interpretation Comments COLOR (BEAKER) (test code = 470) Yellow CLARITY (BEAKER) (test code = 469) Clear SPECIFIC GRAVITY UA (BEAKER) (test 1.015 1.001-1.035 code = 468) PH UA (BEAKER) (test code = 467) 5.5 5.0-8.0 PROTEIN UA (BEAKER) (test code = 20 mg/dL Negative A 464) GLUCOSE UA (BEAKER) (test code = Negative Negative 365) KETONES UA (BEAKER) (test code = 40 mg/dL Negative A 371) BILIRUBIN UA (BEAKER) (test code = Negative Negative 462) BLOOD UA (BEAKER) (test code = Small Negative A 461) NITRITE UA (BEAKER) (test code = Negative Negative 465) LEUKOCYTE ESTERASE UA (BEAKER) Negative Negative (test code = 466) UROBILINOGEN UA (BEAKER) (test 0.2 mg/dL 0.2-1.0 code = 463) RBC UA (BEAKER) (test code = 519) 2 /HPF WBC UA (BEAKER) (test code = 520) 2 /HPF BACTERIA (BEAKER) (test code = Rare 517) MUCUS (BEAKER) (test code = 1574) Occasional SOURCE(BEAKER) (test code = 2795) Loader Magazine Grinder ID - [auto]Loader Magazine Grinder ID - [auto]Loader Magazine Grinder ID - techRAD, ABDOMEN/KUB, 1 VIEW [id number] 16:23:00Reason for exam:->corpak placement verificationShould this be performed at the bedside?->Yes [facility] 1935 Sex: MFINAL REPORT TECHNIQUE: RAD, ABDOMEN/KUB, 1 VIEW AP INDICATION: corpak placement verification COMPARISON: None. FINDINGS:Feeding tube tip terminates at the expected location of the gastric antrum. Bowel gas pattern is nonobstructive. Lung bases are clear.. IMPRESSION:Feeding tube tip terminates at the expected location of the gastric antrum. Signed: Olya Thornton MDReport Verified Date/Time: 02/02/2020 16:23:26 Reading Location: [address] Transitional Reading Room XR abdomen / KUB 1 [id number] 16:23:00Interface, External Ris In - 02/02/2020 4:25 PM CDTFINAL REPORT TECHNIQUE: RAD, ABDOMEN/KUB, 1 VIEW AP INDICATION: corpak placement verification COMPARISON: None. FINDINGS:Feeding tube tip terminates at the expected location of the gastric antrum. Bowel gas pattern is nonobstructive. Lung bases are clear.. IMPRESSION:Feeding tube tip terminates at the expected location of the g astric antrum. Signed: Olya Thornton MDReport Verified Date/Time: 02/02/2020 16:23:26 Reading Location: [address] Transitional Reading Room [facility] HospitalPO[facility] [id number] 11:45:00 Test Item Value Reference Range Interpretation Comments POC-GLUCOSE METER 127 mg/dL 70-110 H : TESTED A T [facility] 6720 (BEAKER) (test code = [place], [address]) [address]: Loader Magazine Grinder/Techni martin ID = [id number] for [facility] HealthcareLili charles [place], ANGIOGRAM, [id number] 09:20:00Reason for exam:->Subarachnoid hemorrhageAnesthesia:->MAC [facility] 1935 Sex: MFINAL REPORT Date of Procedure: 02/01/2020 Surgeon: BUDDY Rivas BSAssistant: Med Jeffrey MD Pre-operative diagnosis: Subarachnoid hemorrhagePost-operative diagnosis: Subarachnoid hemorrhage Procedure: Diagnostic cerebral angiogram Anesthesiologist: per anesthesiarecordsAnesthesia Type: MAC Complications: None apparent Vessel injections: 1. Right femoral artery2. Right common carotid artery3. Left common carotid artery4. Right vertebral artery5. Left vertebral artery Indication for procedure: Patient is a 84-year-old man with a history of hypertension and hyperlipidemia, transferred from an outside hospital, found to have diffuse subarachnoid hemorrhage. Per r eport, the patient developed severe headache, neck pain, nausea, vomiting three days prior to presentation. He had no recent trauma or fall. At the outside hospital he was found to have been, diffuse subarachnoid hemorrhage and was transferred to [facility] for further evaluation and management. Upon arrival patient was found to have some confusion but no focal neurologic deficits. A CT angiogram was done without evidence of aneurysm or other vascular lesions. A diagnostic cerebral angiogram was recommended for further evaluation. Procedure in Detail: AngiogramFollowing explanation of the benefits, risks and alternatives for the procedure, informed consent was obtained from the patient. The risks including but not limited to stroke, intracranial hemorrhage, vascular injury to the cervical or access vessels were discussed. A time-out was performed. Both groins and wrists were prepped in the usual sterile fashion using Chloroprep, and sterilely draped. Access was initiated at the right femoral artery under ultrasound guidance (see medical record for images) and a 5 [place] sheath was placed and maintained on heparinized flush. A 5 [place] diagnostic catheter was introduced and broughtinto the aortic arch under fluoroscopic guidance. The diagnostic catheter was used to catheterize the right common carotid artery, right internal carotid artery, right external carotid artery, right vertebral artery, left common carotid artery, left internal carotid artery, left external carotid artery, and left vertebral artery. Upon each successive selective catheterization, digital subtraction elaine ography using the appropriate rate and volume of contrast in multiple projections was performed. After adequate visualization of all vessels all sheaths and catheters were removed and an Angio-Seal device was used for hemostasis. The patient was transported to the ICU in stable condition Findings: Right Femoral Artery (AP and Lateral)-The sheath enters above the femoral bifurcation. The femoral artery and bifurcation are widely patent without evidence of ulceration or stenosis. Right Common Carotid Artery, Cervical (AP, Lateral)-The origins of the right internal and external carotid arteries are wid beth patent without evidence of ulceration or stenosis. Right External Carotid Artery (AP, Lateral)-The visualized branches of the external carotid artery are normal in course and appearance. There is no evidence of arteriovenous shunting. The capillary and venous phases are normal Right Internal Carotid Artery, Intracranial (AP, Lateral, Oblique)-The cervical carotid artery is patent without areas ofstenosis, dissection or ulceration; and is without branches -The petrous carotid artery is patent without areas of stenosis, dissection or ulceration the mandibulovidian artery is not visualized, no petrosal segment aneurysms -The cavernous carotid artery is patent without areas of stenosis, dissection, or ulceration, meningohypophyseal trunk and inferolateral trunks are not visualized, there are no cavernous segment aneurysms -The supraclinoidal carotid artery, the opthalmic, communicating, and choroidal segments are patent without areas of stenosis and without aneurysms. The posterior communicating artery is large in caliber, and in configuration. The anterior choroidal artery is visualized. The A1 and M1 segments are visualized and are without stenosis or vasospasm. -The KEL fill physiologically throughout their territory without cross-filling across the anterior communicating artery. There is no noted stenosis or vasospasm noted within its branches. There are no noted aneurysms of the pericallosal or callosomarginal branches. There is no evidence of arteriovenous shunting -The MCA'sfill physiologically throughout their territory there is no noted stenosis, occlusion or vasospasm noted within its branches. There is no evidence for aneurysm. There is no evidence of arteriovenous shunting. The capillary phase is normal without areas of malperfusion, the venous phase demonstrates anormal venous draining pattern Left Common Carotid Artery, Cervical (AP, Lateral,)-The origins of the left internal and external carotid arteries are widely patent without evidence of ulceration or stenosis. Left External Carotid Artery (AP, Lateral)-The visualized branches of the external carotid artery are normal in course and appearance. There is no evidence of arteriovenous shunting. The capillary and venous phases are normal Left Internal Carotid Artery, Intracranial (AP, Lateral)-The cervical carotid artery is patent without areas of stenosis, dissection or ulceration; and is without branches-The petrous carotid artery is patent without areas of stenosis, dissection or ulceration the mandibulovidian artery is not visualized, no petrosal segment aneurysms -The cavernous carotid artery is patent without areas of stenosis, dissection, or ulceration, meningohypophyseal trunk and inferolateraltrunks are not visualized, there are no cavernous segment aneurysms -The supraclinoidal carotid artery, the opthalmic, communicating, and choroidal segments are patent without areas of stenosis and without aneurysms. The posterior communicating artery is large in caliber and in configuration. The anterior choroidal artery is visualized. The A1 and M1 segments are visualized and are without stenosis or vasospasm. -The KEL fill physiologically throughout their territory without cross-filling across the anterior communicating artery. There is no noted stenosis or vasospasm noted within its branches. There are no noted aneurysms of the pericallosal or callosomarginal branches. There is no evidence of arteriovenous shunting -The MCA's fill physiologically throughout their territory there is no noted stenosis, occlusion or vasospasm noted within its branches. There are no noted aneurysms. Thereis no evidence of arteriovenous shunting. The capillary phase is normal without areas of malperfusion, the venous phase demonstrates a normal venous draining pattern Right Vertebral Artery (Rajiv/Transfacial, Lateral)- The cervical course of the right vertebral artery has a normal course and appearance. Muscular branches arising from the distal segments are visualized. There is no arteriovenous shunting nor vascular malformations. -The vertebral artery terminates in the posterior inferior cerebellar artery, proximal to the vertebrobasilar junction. - A large posterior meningeal artery is seen. The capillary phase is normal and a normal venous drainage pattern is noted. Left Vertebral Artery (Rajiv/Transfacial, Lateral)-The cervical course of the left vertebral artery has a normal course and appearance. Muscular branches arising from the distal segments are visualized. There is no arteriovenous shunting nor vascular malformations. -There is no cross-filling into the right vertebral artery retrograde. -There is no stenosis or ulceration noted in the vertebral or basilar arteries. PICA, AICA, and superior cerebellar arteries are visualized no evidence of aneurysms at their origins. The supervisor webbing are not well seen, indicating bilateral configuration. There is no evidence of stenosis or vasospasm. -There is not reflux into the posterior communicating artery. -The capillary phase is normal and in normal venous drainage pattern is noted Summary of Findings 1. No intracranial aneurysms orvascular lesions identified. 2. No clinical or radiographic evidence of applications. Signed: Jose Coffman MDReport Verified Date/Time: 02/02/2020 09:20:12 Reading Location: [facility] Y026 Neuro Angio Reading Room CT, BRAIN, WITHOUT [id number] 08:52:00Unlisted Reason for Exam - Click Yes and Enter Reason Below->No [facility] : 1935 Sex: MFINAL REPORT CT Head without contrast CLINICAL HISTORY: Cerebral hem orrhage suspected TECHNIQUE: Contiguous axial CT images through the head without contrast. This examwas performed according to the departmental dose optimization program which includes automated exposure control, adjustment of the mA and/or kV according to the patient size, and/or use of an iterative reconstruction technique. COMPARISON: 01/31/2020 FINDINGS: Scattered diffuse subarachnoid hemorrhageis similar appearing. Thin subdural hemorrhage along the posterior falx is unchanged. Small intraventricular hemorrhage is again seen. There is slightly increased size of the left temporal horn which could represent a developing communicating hydrocephalus. The ventricles are otherwise not significantly changed in size. A hypodense right cerebral convexity subdural collection is unchanged. Generalized parenchymal volume loss is again noted without midline shift. There is atherosclerotic calcification of the intracranial circulation. The skull is intact. The visualized paranasal sinuses are well-aerated. IMPRESSION: Since 01/31/2020, subarachnoid hemorrhage, intraventricular hemorrhage, and subdural hemorrhage are grossly unchanged. Slightly more prominent left temporal horn, for which attention on follow-up is recommended to assess for communicating hydrocephalus. Signed: Jacob Wright MDReportVerified Date/Time: 02/02/2020 08:52:59 Reading Location: [facility] C013V Neuro Reading Room BASIC METABOLIC [id number] 04:03:00 Test Item Value Reference Range Interpretation Comments SODIUM (BEAKER) 140 meq/L 136-145 (test code = 381) POTASSIUM (BEAKER) 3.9 meq/L 3.5-5.1 (test code = 379) CHLORIDE (BEAKER) 104 meq/L 98-107 (test code = 382) CO2 (BEAKER) (test 26 meq/L 22-29 code = 355) BLOOD UREA NITROGEN 17 mg/dL 7-21 (BEAKER) (test code = 354) CREATININE (BEAKER) 0.78 mg/dL 0.57-1.25 (test code = 358) GLUCOSE RANDOM 97 mg/dL 70-105 (BEAKER) (test code = 652) CALCIUM (BEAKER) 8.4 mg/dL 8.4-10.2 (test code = 697) EGFR (BEAKER) (test 95 mL/min/1.73 ESTIMA HAWK GFR IS code = 1092) sq m NOT ACCURATE CREATININE CLEARANCE IN PREDICTING GLOMERULAR FILTRATION RATE . ESTIMATED GFR I S NOT APPLICABLE FOR DIALYSIS PATIEN TS. Loader Magazine Grinder ID - SUKHDEV [id number] 04:03:00 Test Item Value Reference Range Interpretation Comments MAGNESIUM (BEAKER) (test code = 2.1 mg/dL 1.6-2.6 627) Loader Magazine Grinder ID - SUKHDEV [id number] 04:03:00 Test Item Value Reference Range Interpretation Comments PHOSPHORUS (BEAKER) (test code = 2.5 mg/dL 2.3-4.7 604) Load[employer] Grinder ID - SUKHDEV MCBC W/PLT COUNT & AUTO [id number] 04:00:00 Test Item Value Reference Range Interpretation Comments WHITE BLOOD CELL COUNT (BEAKER) 12.6 K/ L 3.5-10.5 H (test code = 775) RED BLOOD CELL COUNT (BEAKER) 5.22 M/ L 4.63-6.08 (test code = 761) HEMOGLOBIN (BEAKER) (test code = 16.3 GM/DL 13.7-17.5 410) HEMATOCRIT (BEAKER) (test code = 48.8 % 40.1-51.0 411) MEAN CORPUSCULAR VOLUME (BEAKER) 93.5 fL 79.0-92.2 H (test code = 753) MEAN CORPUSCULAR HEMOGLOBIN 31.2 pg 25.7-32.2 (BEAKER) (test code = 751) MEAN CORPUSCULAR HEMOGLOBIN CONC 33.4 GM/DL 32.3-36.5 (BEAKER) (test code = 752) RED CELL DISTRIBUTION WIDTH 12.5 % 11.6-14.4 (BEAKER) (test code = 412) PLATELET COUNT (BEAKER) (test 162 K/CU MM 150-450 code = 756) MEAN PLATELET VOLUME (BEAKER) 11.2 fL 9.4-12.4 (test code = 754) NUCLEATED RED BLOOD CELLS 0 /100 WBC 0-0 (BEAKER) (test code = 413) NEUTROPHILS RELATIVE PERCENT 82 % (BEAKER) (test code = 429) LYMPHOCYTES RELATIVE PERCENT 9 % (BEAKER) (test code = 430) MONOCYTES RELATIVE PERCENT 8 % (BEAKER) (test code = 431) EOSINOPHILS RELATIVE PERCENT 0 % (BEAKER) (test code = 432) BASOPHILS RELATIVE PERCENT 0 % (BEAKER) (test code = 437) NEUTROPHILS ABSOLUTE COUNT 10.25 K/ L 1.78-5.38 H (BEAKER) (test code = 670) LYMPHOCYTES ABSOLUTE COUNT 1.17 K/ L 1.32-3.57 L (BEAKER) (test code = 414) MONOCYTES ABSOLUTE COUNT (BEAKER) 1.03 K/ L 0.30-0.82 H (test code = 415) EOSINOPHILS ABSOLUTE COUNT 0.01 K/ L 0.04-0.54 L (BEAKER) (test code = 416) BASOPHILS ABSOLUTE COUNT (BEAKER) 0.03 K/ L 0.01-0.08 (test code = 417) IMMATURE GRANULOCYTES-RELATIVE 1 % 0-1 PERCENT (BEAKER) (test code = 2801) POCT-GLUCOSE [id number] 18:24:00 Test Item Value Reference Range Interpretation Comments POC-GLUCOSE METER 122 mg/dL 70-110 H : [facility] (BEAKER[facility] (test code = [place], 1538) [id number]: Loader Magazine Grinder/Techni martin ID = [id number] for An akani, Yanelis [id number] 17:33:00 Test Item Value Reference Range Interpretation Comments MAGNESIUM (BEAKER) 2.3 mg/dL 1.6-2.6 Specimen slightly (test code = 627) hemolyzed Load[employer] Grinder ID - [id number] 17:33:00 Test Item Value Reference Range Interpretation Comments POTASSIUM (BEAKER) 3.9 meq/L 3.5-5.1 Specimen slightly (test code = 379) hemolyzed Loader Magazine Grinder ID - BSPOCT-GLUCOSE [id number] 13:05:00 Test Item Value Reference Range Interpretation Comments POC-GLUCOSE METER 106 mg/dL 70-110 : TESTED A T [facility] 6720 (BEAKER) (test code = [facility], 1538) [address]: Loader Magazine Grinder/Techni martin ID = [id number] for Lili Gong POCT-GLUCOSE [id number] 06:31:00 Test Item Value Reference Range Interpretation Comments POC-GLUCOSE METER 109 mg/dL 70-110 : TESTED A T [facility] 6720 (BEAKER) (test code = [facility], 1538) [address]: Loader Magazine Grinder/Techni martin ID = [id number] for CLAIRE VINCENT CBC W/PLT COUNT & AUTO [id number] 05:34:00 Test Item Value Reference Range Interpretation Comments WHITE BLOOD CELL COUNT (BEAKER) 13.2 K/ L 3.5-10.5 H (test code = 775) RED BLOOD CELL COUNT (BEAKER) 4.71 M/ L 4.63-6.08 (test code = 761) HEMOGLOBIN (BEAKER) (test code = 14.7 GM/DL 13.7-17.5 410) HEMATOCRIT (BEAKER) (test code = 44.8 % 40.1-51.0 411) MEAN CORPUSCULAR VOLUME (BEAKER) 95.1 fL 79.0-92.2 H (test code = 753) MEAN CORPUSCULAR HEMOGLOBIN 31.2 pg 25.7-32.2 (BEAKER) (test code = 751) MEAN CORPUSCULAR HEMOGLOBIN CONC 32.8 GM/DL 32.3-36.5 (BEAKER) (test code = 752) RED CELL DISTRIBUTION WIDTH 12.6 % 11.6-14.4 (BEAKER) (test code = 412) PLATELET COUNT (BEAKER) (test 159 K/CU MM 150-450 code = 756) MEAN PLATELET VOLUME (BEAKER) 10.8 fL 9.4-12.4 (test code = 754) NUCLEATED RED BLOOD CELLS 0 /100 WBC 0-0 (BEAKER) (test code = 413) NEUTROPHILS RELATIVE PERCENT 82 % (BEAKER) (test code = 429) LYMPHOCYTES RELATIVE PERCENT 10 % (BEAKER) (test code = 430) MONOCYTES RELATIVE PERCENT 7 % (BEAKER) (test code = 431) EOSINOPHILS RELATIVE PERCENT 0 % (BEAKER) (test code = 432) BASOPHILS RELATIVE PERCENT 0 % (BEAKER) (test code = 437) NEUTROPHILS ABSOLUTE COUNT 10.79 K/ L 1.78-5.38 H (BEAKER) (test code = 670) LYMPHOCYTES ABSOLUTE COUNT 1.38 K/ L 1.32-3.57 (BEAKER) (test code = 414) MONOCYTES ABSOLUTE COUNT (BEAKER) 0.96 K/ L 0.30-0.82 H (test code = 415) EOSINOPHILS ABSOLUTE COUNT 0.01 K/ L 0.04-0.54 L (BEAKER) (test code = 416) BASOPHILS ABSOLUTE COUNT (BEAKER) 0.03 K/ L 0.01-0.08 (test code = 417) IMMATURE GRANULOCYTES-RELATIVE 0 % 0-1 PERCENT (BEAKER) (test code = 2801) BASIC METABOLIC [id number] 05:26:00 Test Item Value Reference Range Interpretation Comments SODIUM (BEAKER) 142 meq/L 136-145 (test code = 381) POTASSIUM (BEAKER) 3.5 meq/L 3.5-5.1 Specimen slightly (test code = 379) hemolyzed CHLORIDE (BEAKER) 109 meq/L 98-107 H (test code = 382) CO2 (BEAKER) (test 26 meq/L 22-29 code = 355) BLOOD UREA NITROGEN 17 mg/dL 7-21 (BEAKER) (test code = 354) CREATININE (BEAKER) 0.68 mg/dL 0.57-1.25 Specimen slightly (test code = 358) hemolyzed GLUCOSE RANDOM 93 mg/dL 70-105 (BEAKER) (test code = 652) CALCIUM (BEAKER) 7.4 mg/dL 8.4-10.2 L (test code = 697) EGFR (BEAKER) (test 111 mL/min/1.73 ESTIM ATED GFR IS code = 1092) sq m NOT ACCURATE CREATININE CLEARANCE IN PREDICTING GLOMERULAR FILTRATION RATE . ESTIMATED GFR I S NOT APPLICABLE FOR DIALYSIS PATIEN TS. Loader Magazine Grinder ID - [email or web address] on admission and Daily AM afterwardsOnce on admission and Daily AM afterwardsFasting lipid [id number] 05:25:00 Test Item Value Reference Range Interpretation Comments Triglycerides (test 78 mg/dL Specimen code = 2571-8) slightly hemolyzed Cholesterol (test 142 mg/dL Specimen code = 2093-3) slightly hemolyzed HDL (test code = 33 mg/dL 5-9) LDL Calculated (test 93 mg/dL code = 04313-0) JUDI (test code = Triglyceride JUDI) Reference Range: Low Risk <150 Borderline 150-199 High Risk 200-499 Very High Risk >=500 Cholesterol Reference Range: Low Risk <200 Borderline 200-239 High Risk >240 HDL Cholesterol Reference Range: Low Risk >=60 High Risk <40 LDL Cholesterol Reference Range: Optimal <100 Near Optimal 100-129 Borderline 130-159 High 160-189 Very High >=190 Loader Magazine Grinder ID - [email or web address] on admission and Daily AM afterwardsOnce on admission and Daily AM [id number] 05:25:00 Test Item Value Reference Range Interpretation Comments MAGNESIUM (BEAKER) 1.7 mg/dL 1.6-2.6 Specimen slightly (test code = 627) hemolyzed Loader [employer] Grinder ID - EDASIOnce on admission and Daily AM afterwardsOnce on admission and Daily AM [id number] 05:25:00 Test Item Value Reference Range Interpretation Comments PHOSPHORUS (BEAKER) 2.6 mg/dL 2.3-4.7 Specimen slightly (test code = 604) hemolyzed Loader Magazine Grinder ID - EDASIOnce on admission and Daily AM afterwardsOnce on admission and Daily AM afterwardsLIPID [id number] 05:25:00 Test Item Value Reference Range Interpretation Comments TRIGLYCERIDES (BEAKER) 78 mg/dL Speci men slightly (test code = 540) hemolyzed CHOLESTEROL (BEAKER) 142 mg/dL Specime n slightly (test code = 631) hemolyzed HDL CHOLESTEROL (BEAKER) 33 mg/dL (test code = 976) LDL CHOLESTEROL 93 mg/dL CALCULATED (BEAKER) (test code = 633) Triglyceride Reference Range: Low Risk <150 Borderline 150-199 High Risk 200-499 Very High Risk >=500Cholesterol Reference Range: Low Risk <200 Borderline 200-239 High Risk >240HDL Cholesterol Reference Range: Low Risk >=60 High Risk <40LDL Cholesterol Reference Range: Optimal <100 Near Optimal 100-129 Borderline 130-159 High 160-189 Very High >=190 Loader Magazine Grinder ID - EDASIOnce on admission and Daily AM afterwardsOnce on admission and Daily AM afterwardsPOCT-GLUCOSE [id number] 00:51:00 Test Item Value Reference Range Interpretation Comments POC-GLUCOSE METER 112 mg/dL 70-110 H : TESTED A T [facility] 6720 ([email or web address]) (test code = [place] [facility], 1538) [address]: Loader Magazine Grinder/Techni martin ID = [id number] for CLAIRE VINCENT SARS-COV2/RT-PCR ([facility])2020-02-01 00:34:00 Test Item Value Reference Range Interpretation Comments SARS-COV2/RT-PCR (test Negative Not Detected, Negative, code = 2706512) See external report for linked test SARS-COV-2 PERFORMING LAB [facility] GAUDENCIO (test code = 7093778) Negative result for this test determines that SARS-CoV-2 RNA was not present in the specimen above the Limit of Detection (LOD). However, Negative results do not preclude SARS-CoV-2 infection and should not be used as the sole basis for treatment or patient management decisions. Negative results mustbe combined with clinical observations, patient history, and epidemiological information. A false negative result may occur if a specimen is improperly collected, transported or handled. A false negative result should be considered if patient's recent exposures or clinical presentation indicate that COVID-19 (SARS-CoV-2) is likely and diagnostic tests for other causes of illness are negative. Re-testing should be considered in cases of suspected false negatives.The limit of detection for this assay is 800 copies/mL.This SARS CoV-2 test is a real-time RT-PCR test intended for the qualitative detection of nucleic acid from SARS-CoV-2 in a nasopharyngeal swab specimen collected from individuals suspected of COVID-19 by their healthcare provider.This test has not been Food and Drug [...] is revoked under Section 564(g) of the Act.Fact Sheet for Healthcare Providers:https://www.[employer]/sites/default/files/product/documents/Fact_Shee w_CW_Bfmhdplji_Wbjt_BAEX-WzS-7.pdfFact Sheet for Healthcare Patients:https://www.[employer]/sites/default/files/product/ documents/Wnbk_Mgomc_Uwgrurtz_Vnqt_KTBG-YwK-3.pdfPerforming Laboratory:[facility], [place] [address]IO, CTANGIO BRAIN 2020-01-31 16:54:00Unlisted Reason for Exam - Click Yes and Enter Reason Below->No[facility] : 1935 Sex: MFINAL REPORT CLINICAL HISTORY: Neuro deficit, acute, stroke suspected TECHNIQUE: Initially, noncontrast head CT images were performed. Contiguous contrast-enhanced axial images through the neck followed by axial images through the head with coronal and sagittal reformations to assess the arterial circulation. 3-D reconstructions were performed using a volume rendered t echnique separately on a workstation. This exam was performed according to the departmental dose optimization program which includes automated exposure control, adjustment of the mA and/or kV according to the patient size, and/or use of an iterative reconstruction technique. Stenosis evaluation reported in compliance with NASCET criteria. COMPARISON: None FINDINGS: CTA head:Please note that CTA is inherently insensitive in evaluating the cavernous and skullbase portions of the internal carotid arteries because of adjacent bone and venous opacification. There is a thin subdural hematoma along the falx. Diffuse scattered subarachnoid hemorrhage within the basal cisterns and bilateral hemispheric sulci. There is intraventricular extension with blood layering in the bilateral occipital horns as wellas within the fourth ventricle. There is no hydrocephalus or midline shift. No CT evidence of acute territorial infarct. Generalized cerebral atrophy with ex vacuo dilatation of the ventricular system proportionate to sulci. Scattered foci of hypoattenuation within the periventricular and subcortical white matter are a nonspecific finding commonly attributed to chronic small vessel ischemic disease. The skull is intact. No major branch vessel occlusion or high-grade focal stenosis. There is no evidence of intracranial aneurysm. The major intradural venous sinuses are patent. CTA neck:Great vessel origins: No occlusion or high-grade stenosis. 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 No occlusion or high- grade stenosis. Vertebral arteries: No occlusion or high-grade stenosis. No fracture or suspicious osseous lesion. Cervical soft tissues are unremarkable. Mild scarring of the lung apices, with a calcified granuloma on the right. IMPRESSION:1.Diffuse subarachnoidhemorrhage filling the basal cisterns and bilateral hemispheric sulci.2.Intraventricular extension in the lateral and fourth ventricles. No hydrocephalus.3.Thin subdural hematoma along the posterior falx.4.No CT evidence of acute territorial infarct.5.No proximal branch arterial occlusion or high-grade focal stenosis.6.No evidence of aneurysm. Signed: Adele [facility] Verified Date/Time: 01/31/2020 16:54:44 CT, CAROTID, [id number] 16:54:00Unlisted Reason for Exam - Click Yes and Enter Reason Below->No [facility] 1935 Sex: MFINAL REPORT CLINICAL HISTORY: Neuro deficit, acute, stroke suspected TECHNIQUE: Initially, noncontrast head CT images were performed. Contiguous contrast-enhanced axial images through the neck followed by axial images through the head with coronal and sagittal reformations to assess the arterial circulation. 3-D reconstructions were performed using a volume rendered t echnique separately on a workstation. This exam was performed according to the departmental dose optimization program which includes automated exposure control, adjustment of the mA and/or kV according to the patient size, and/or use of an iterative reconstruction technique. Stenosis evaluation reported in compliance with NASCET criteria. COMPARISON: None FINDINGS: CTA head:Please note that CTA is inherently insensitive in evaluating the cavernous and skullbase portions of the internal carotid arteries because of adjacent bone and venous opacification. There is a thin subdural hematoma along the falx. Diffuse scattered subarachnoid hemorrhage within the basal cisterns and bilateral hemispheric sulci. There is intraventricular extension with blood layering in the bilateral occipital horns as wellas within the fourth ventricle. There is no hydrocephalus or midline shift. No CT evidence of acute territorial infarct. Generalized cerebral atrophy with ex vacuo dilatation of the ventricular system proportionate to sulci. Scattered foci of hypoattenuation within the periventricular and subcortical white matter are a nonspecific finding commonly attributed to chronic small vessel ischemic disease. The skull is intact. No major branch vessel occlusion or high-grade focal stenosis. There is no evidence of intracranial aneurysm. The major intradural venous sinuses are patent. CTA neck:Great vessel origins: No occlusion or high-grade stenosis. 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 No occlusion or high- grade stenosis. Vertebral arteries: No occlusion or high-grade stenosis. No fracture or suspicious osseous lesion. Cervical soft tissues are unremarkable. Mild scarring of the lung apices, with a calcified granuloma on the right. IMPRESSION:1.Diffuse subarachnoidhemorrhage filling the basal cisterns and bilateral hemispheric sulci.2.Intraventricular extension in the lateral and fourth ventricles. No hydrocephalus.3.Thin subdural hematoma along the posterior falx.4.No CT evidence of acute territorial infarct.5.No proximal branch arterial occlusion or high-grade focal stenosis.6.No evidence of aneurysm. Signed: Adele Guadalupe MDReport Verified Date/Time: 01/31/2020 16:54:44 CTA [id number] 16:54:00Interface, External Ris In - 01/31/2020 4:56 PM CDTFINAL REPORT CLINICAL HISTORY: Neuro deficit, acute, stroke suspected TECHNIQUE: Initially, noncontrast head CT images were per formed. Contiguous contrast-enhanced axial images through the neck followed by axial images through the head with coronal and sagittal reformations to assess the arterial circulation. 3-D reconstructions were performed using a volume rendered technique separately on a workstation. This exam was performed according to the departmental dose optimization program which includes automated exposure control, adjustment of the mA and/or kV according to the patient size, and/or use of an iterative reconstruction technique. Stenosis evaluation reported in compliance with NASCET criteria. COMPARISON: None FINDINGS: CTA head:Please note that CTA is inherently insensitive in evaluating the cavernous and skullbase portions of the internal carotid arteries because of adjacent bone and venous opacification. There is a thin subdural hematoma along the falx. Diffuse scattered subarachnoid hemorrhage within the basal cisterns and bilateral hemispheric sulci. There is intraventricular extension with blood layering in the bilateral occipital horns as well as within the fourth ventricle. There is no hydrocephalus or midline shift. No CT evidence of acute territorial infarct. Generalized cerebral atrophy with ex vacuo dilatation of the ventricular system proportionate to sulci. Scattered foci of hypoattenuation within the periventricular and subcortical white matter are a nonspecific finding commonly attributed to chronic small vessel ischemic disease. The skull is intact. No major branch vessel occlusion or high-grade focal stenosis. There is no evidence of intracranial aneurysm. The major intradural venoussinuses are patent. CTA neck:Great vessel origins: No occlusion or high-grade stenosis. 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 No occlusion or high-grade stenosis. Vertebral arteries: No occlusion or high- grade stenosis. No fracture or suspicious osseous lesion. Cervicalsoft tissues are unremarkable. Mild scarring of the lung apices, with a calcified granuloma on the right. IMPRESSION:1.Diffuse subarachnoid hemorrhage filling the basal cisterns and bilateral hemispheric sulci.2.Intraventricular extension in the lateral and fourth ventricles. No hydrocephalus.3.Thin subdural hematoma along the posterior falx.4.No CT evidence of acute territorial infarct.5.No proximal branch arterial occlusion or high-grade focal stenosis.6.No evidence of aneurysm. Signed: Adele Guadalupeort Verified Date/Time: 01/31/2020 16:54:44 [facility] [id number] 16:54:00Interface, External Ris In - 01/31/2020 4:56 PM CDTFINAL REPORT CLINICAL HISTORY: Neuro deficit, acute, stroke suspected TECHNIQUE: Initially, noncontrast head CT images were performed. Contiguous contrast-enhanced axial images through the neck followed by axial images through the head with coronal and sagittal reformations to assess the arterial circulation. 3-D reconstruction s were performed using a volume rendered technique separately on a workstation. This exam was performed according to the departmental dose optimization program which includes automated exposure control, adjustment of the mA and/or kV according to the patient size, and/or use of an iterative reconstruction technique. Stenosis evaluation reported in compliance with NASCET criteria. COMPARISON: None FINDINGS: CTA head:Please note that CTA is inherently insensitive in evaluating the cavernous and skullbase portions of the internal carotid arteries because of adjacent bone and venous opacification. There is a thin subdural hematoma along the falx. Diffuse scattered subarachnoid hemorrhage within the basal cisterns and bilateral hemispheric sulci. There is intraventricular extension with blood layering in the bilateral occipital horns as well as within the fourth ventricle. There is no hydrocephalus or midline shift. No CT evidence of acute territorial infarct. Generalized cerebral atrophy with ex vacuo dilatation of the ventricular system proportionate to sulci. Scattered foci of hypoattenuation within the periventricular and subcortical white matter are a nonspecific finding commonly attributed to chronic small vessel ischemic disease. The skull is intact. No major branch vessel occlusion or high-grade focal stenosis. There is no evidence of intracranial aneurysm. The major intradural venoussinuses are patent. CTA neck:Great vessel origins: No occlusion or high-grade stenosis. 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 No occlusion or high-grade stenosis. Vertebral arteries: No occlusion or high-grade stenosis. No fracture or suspicious osseous lesion. Cervicalsoft tissues are unremarkable. Mild scarring of the lung apices, with a calcified granuloma on the right. IMPRESSION:1.Diffuse subarachnoid hemorrhage filling the basal cisterns and bilateral hemispheric sulci.2.Intraventricular extension in the lateral and fourth ventricles. No hydrocephalus.3.Thin subdural hematoma along the posterior falx.4.No CT evidence of acute territorial infarct.5.No proximal branch arterial occlusion or high- grade focal stenosis.6.No evidence of aneurysm. Signed: Adele Guadalupe Verified Date/Time: 01/31/2020 16:54:44 [facility] [id number] 16:49:00 Test Item Value Reference Range Interpretation Comments POC-GLUCOSE METER 113 mg/dL 70-110 H : TESTED A T [facility] 6720 [facility] (test code = KENYON Haney [facility], 1538) [address]: Loader Magazine Grinder/Techni martin ID = [id number] for [facility] HEPATIC FUNCTION [id number] 15:46:00 Test Item Value Reference Range Interpretation Comments TOTAL PROTEIN (BEAKER) 6.9 gm/dL 6.0-8.3 Speci men moderately (test code = 770) hemolyzed ALBUMIN (BEAKER) (test 4.0 g/dL 3.5-5.0 Speci men moderately code = 1145) hemolyzed BILIRUBIN TOTAL 2.0 mg/dL 0.2-1.2 H Specimen mod erately (BEAKER) (test code = hemoly zed 377) BILIRUBIN DIRECT 0.5 mg/dL 0.1-0.5 Specimen mo derately (BEAKER) (test code = hemoly zed 706) ALKALINE PHOSPHATASE 39 U/L 40-150 L (BEAKER) (test code = 346) AST (SGOT) (BEAKER) 27 U/L 5-34 Specimen moderately (test code = 353) hemolyzed ALT (SGPT) (BEAKER) 16 U/L 6-55 Specimen moderately (test code = 347) hemolyzed Loader [employer] Grinder ID - BSBASIC METABOLIC [id number] 15:44:00 Test Item Value Reference Range Interpretation Comments SODIUM (BEAKER) 140 meq/L 136-145 (test code = 381) POTASSIUM (BEAKER) 4.4 meq/L 3.5-5.1 Specimen moderately (test code = 379) hemolyzed CHLORIDE (BEAKER) 102 meq/L 98-107 (test code = 382) CO2 (BEAKER) (test 29 meq/L 22-29 code = 355) BLOOD UREA NITROGEN 20 mg/dL 7-21 (BEAKER) (test code = 354) CREATININE (BEAKER) 0.87 mg/dL 0.57-1.25 Specimen moderately (test code = 358) hemolyzed GLUCOSE RANDOM 134 mg/dL 70-105 H (BEAKER) (test code = 652) CALCIUM (BEAKER) 8.7 mg/dL 8.4-10.2 (test code = 697) EGFR (BEAKER) (test 84 mL/min/1.73 ESTIMA HAWK GFR IS code = 1092) sq m NOT ACCURATE CREATININE CLEARANCE IN PREDICTING GLOMERULAR FILTRATION RATE . ESTIMATED GFR I S NOT APPLICABLE FOR DIALYSIS PATIEN TS. Loader Magazine Grinder ID - BSSpecimen slightly [id number] 15:11:00 Test Item Value Reference Range Interpretation Comments PARTIAL THROMBOPLASTIN TIME 27.5 seconds 22.5-36.0 (BEAKER) (test code = 760) PROTHROMBIN [id number] 15:10:00 Test Item Value Reference Range Interpretation Comments PROTIME (BEAKER) (test code = 14.9 seconds 11.9-14.2 H 759) INR (BEAKER) (test code = 370) 1.20 <=5.90 Effective 09/08/2018: PT Reference Range ChangeNew: 11.9-14.2 Previous: 11.7- 14.7RECOMMENDED COUMADIN/WARFARIN INR THERAPY RANGESSTANDARD DOSE: 2.0-3.0 Includes: PROPHYLAXIS for venous thrombosis, systemic embolization; TREATMENT for venous thrombosis and/or pulmonary embolus.HIGH RISK: Target INR is2.5-3.5 for patients wiht mechanical heart valves.CBC W/PLT COUNT & AUTO [id number] 15:03:00 Test Item Value Reference Range Interpretation Comments WHITE BLOOD CELL COUNT (BEAKER) 16.9 K/ L 3.5-10.5 H (test code = 775) RED BLOOD CELL COUNT (BEAKER) 4.93 M/ L 4.63-6.08 (test code = 761) HEMOGLOBIN (BEAKER) (test code = 15.4 GM/DL 13.7-17.5 410) HEMATOCRIT (BEAKER) (test code = 46.7 % 40.1-51.0 411) MEAN CORPUSCULAR VOLUME (BEAKER) 94.7 fL 79.0-92.2 H (test code = 753) MEAN CORPUSCULAR HEMOGLOBIN 31.2 pg 25.7-32.2 (BEAKER) (test code = 751) MEAN CORPUSCULAR HEMOGLOBIN CONC 33.0 GM/DL 32.3-36.5 (BEAKER) (test code = 752) RED CELL DISTRIBUTION WIDTH 12.7 % 11.6-14.4 (BEAKER) (test code = 412) PLATELET COUNT (BEAKER) (test 170 K/CU MM 150-450 code = 756) MEAN PLATELET VOLUME (BEAKER) 11.4 fL 9.4-12.4 (test code = 754) NUCLEATED RED BLOOD CELLS 0 /100 WBC 0-0 (BEAKER) (test code = 413) NEUTROPHILS RELATIVE PERCENT 90 % (BEAKER) (test code = 429) LYMPHOCYTES RELATIVE PERCENT 4 % (BEAKER) (test code = 430) MONOCYTES RELATIVE PERCENT 5 % (BEAKER) (test code = 431) EOSINOPHILS RELATIVE PERCENT 0 % (BEAKER) (test code = 432) BASOPHILS RELATIVE PERCENT 0 % (BEAKER) (test code = 437) NEUTROPHILS ABSOLUTE COUNT 15.26 K/ L 1.78-5.38 H (BEAKER) (test code = 670) LYMPHOCYTES ABSOLUTE COUNT 0.75 K/ L 1.32-3.57 L (BEAKER) (test code = 414) MONOCYTES ABSOLUTE COUNT (BEAKER) 0.80 K/ L 0.30-0.82 (test code = 415) EOSINOPHILS ABSOLUTE COUNT 0.00 K/ L 0.04-0.54 L (BEAKER) (test code = 416) BASOPHILS ABSOLUTE COUNT (BEAKER) 0.02 K/ L 0.01-0.08 (test code = 417) IMMATURE GRANULOCYTES-RELATIVE 1 % 0-1 PERCENT (BEAKER) (test code = 2801)
--- NOTE | 2020-04-08 16:36 | RAD REPORT ---
EXAM DESCRIPTION: RAD - Abdomen 1 View (KUB) - 04/08/2020 4:19 pm CLINICAL HISTORY: Peg tube placement check COMPARISON: Abdomen 1 View (KUB) dated 01/12/2019 FINDINGS: Two KUB images were obtained following replacement or repositioning of any G-tube. Images were obtained prior to and following retrograde injection of contrast via the G-tube. Pre-injection image shows PEG tube in good position. Stomach is decompressed. Bowel gas pattern is no nspecific. No obstruction or emergent finding seen. Post-contrast imaging shows all contrast contained within the stomach and proximal small bowel. Ball oon tip is in good position. No extravasation. IMPRESSION: Replacement or repositioning of the PEG tube is in good position. All contrast contained within the lumen of the stomach and small bowel.
--- NOTE | 2020-04-08 17:08 | ER ---
Nurse's Notes [facility] Name: James Baker Age: 84 yrs Sex: Male : 1935 Arrival Date: 04/08/2020 Time: 14:35 Bed 27 Private MD: Diagnosis: Encounter for attention to gastrostomy Presentation: 04/08 14:46 Chief complaint: EMS states: G-tube obstruction x 3 days, on hospice. iw 14:46 Acuity: RODRI 3 iw 14:46 Method Of Arrival: EMS: [facility] iw 14:46 Coronavirus screen: At this time, the client does not indicate any symptoms associated iw with coronavirus-19. Ebola Screen: Patient negative for fever greater than or equal to 101.5 degrees Fahrenheit, and additional compatible Ebola Virus Disease symptoms Patient denies exposure to infectious person. Patient denies travel to an Ebola-affected area in the 21 days before illness onset. No symptoms or risks identified at this time. Initial Sepsis Screen: Does the patient meet any 2 criteria? No. Patient's initial sepsis screen is negative. Does the patient have a suspected source of infection? No. Patient's initial sepsis screen is negative. Risk Assessment: Do you want to hurt yourself or someone else? Patient reports no desire to harm self or others. Onset of symptoms was April 05, 2020. Triage Assessment: 17:00 General: Appears in no apparent distress. Behavior is calm. iw Historical: - PMHx: 16:22 Hypertension; Kidney stones; iw - PSHx: 16:22 Knee surgery; Appendectomy; iw - Immunization history:: Adult Immunizations up to date. - Social history:: Smoking status: Patient denies any tobacco usage or history of. Screenin:00 Abuse screen: Denies threats or abuse. Denies injuries from another. Nutritional iw screening: Difficulty chewing/swallowing? Yes. Tuberculosis screening: No symptoms or risk factors identified. Fall Risk None identified. Assessment: 17:00 General: Appears in no apparent distress. Behavior is calm. iw 17:00 Pain: Unable to use pain scale. FLACC scale score is 5 out of 10. Neuro: Level of iw Consciousness is awake. Cardiovascular: Patient's skin is warm and dry. Respiratory: Respiratory effort is even, unlabored, Respiratory pattern is regular. GI: Abdomen is non-distended, PEG tube in place. 17:49 Reassessment: Patient appears in no apparent distress at this time. waiting for [facility] to transport pt back home. Vital Signs: 15:00 BP 143 / 78; Pulse 89; Resp 16; Temp 98.0; Pulse Ox 97% on R/A; ED Course: 14:35 Patient arrived in ED. ag5 14:47 Triage completed. 14:47 Elisabeth Hermosillo, RN is Primary Nurse. 14:53 Jordan Lyon PA is PHCP. [facility] 14:53 Js Stuart MD is Attending Physician. [facility] 15:00 Arm band placed on. iw 16:19 Abdomen 1 View (KUB) XRAY In Process Unspecified. EDMS 17:00 Patient has correct armband on for positive identification. iw 17:49 No provider procedures requiring assistance completed. Patient did not have IV access iw during this emergency room visit. Administered Medications: No medications were administered Outcome: 17:08 Discharge ordered by MD. [facility] 18:28 Discharged to home via ambulance, with family. iw 18:28 Condition: good 18:28 Discharge instructions given to family, Instructed on discharge instructions. 18:29 Patient left the ED. Signatures: Dispatcher [employer] EDOR Jordan Lyon PA PA Elisabeth Arredondo RN RN Ashley Salgado ag5 Corrections: (The following items were deleted from the chart) 04/09 14:18 12 17:00 General: Appears in no apparent distress. iw
--- NOTE | 2020-04-08 17:08 | EDPHYS ---
Physician Documentation [facility] Name: James Baker Age: 84 yrs Sex: Male : 1935 Arrival Date: 04/08/2020 Time: 14:35 Bed 27 Private MD: ED Physician Js Stuart HPI: 04/08 14:54 This 84 yrs old Male presents to ER via EMS with complaints of Obstructed jmm G-tube. 14:54 Onset: The symptoms/episode began/occurred 3 day(s) ago. The symptoms do not radiate. jmm Modifying factors: The symptoms are alleviated by nothing, the symptoms are aggravated by nothing. G tube obstruction according to family. Home health unable to unclog with Dr. Christian. Historical: - PMHx: 16:22 Hypertension; Kidney stones; iw - PSHx: 16:22 Knee surgery; Appendectomy; iw - Immunization history:: Adult Immunizations up to date. - Social history:: Smoking status: Patient denies any tobacco usage or history of. ROS: 14:54 Constitutional: Negative for fever, chills, and weight loss, Cardiovascular: Negative jmm for chest pain, palpitations, and edema, Respiratory: Negative for shortness of breath, cough, wheezing, and pleuritic chest pain. 14:54 All other systems are negative. Exam: 14:54 Constitutional: This is a well developed, well nourished patient who is awake, alert, jmm and in no acute distress. Head/Face: atraumatic. Eyes: EOMI, no conjunctival erythema appreciated ENT: Moist Mucus Membranes Neck: Trachea midline, Supple Chest/axilla: Normal chest wall appearance and motion. Cardiovascular: Regular rate and rhythm. No edema appreciated Respiratory: Normal respirations, no respiratory distress appreciated 14:54 Back: Normal ROM Skin: General appearance color normal MS/ Extremity: Moves all extremities, no obvious deformities appreciated, no edema noted to the lower extremities Neuro: Awake and alert, normal gait Psych: Behavior is normal, Mood is normal, Patient is cooperative and pleasant 14:54 Abdomen/GI: G tube noted. Vital Signs: 15:00 BP 143 / 78; Pulse 89; Resp 16; Temp 98.0; Pulse Ox 97% on R/A; iw MDM: 14:54 Patient medically screened. [facility] 17:06 Data reviewed: vital signs, nurses notes. Counseling: I had a detailed discussion with adrianna the patient and/or guardian regarding: the historical points, exam findings, and any diagnostic results supporting the discharge/admit diagnosis, the need for outpatient follow up, to return to the emergency department if symptoms worsen or persist or if there are any questions or concerns that arise at home. ED course: Imaging studies show correct placement. No obstruction appreciated. Advised to follow up with pcp and otherwise given strict return precautions. understood and agrees with the plan of care. . 04/08 15:52 Order name: Abdomen 1 View (KUB) XRAY; Complete Time: 16:49 adrianna Administered Medications: No medications were administered Disposition: 18:55 Co-signature as Attending Physician, Js Stuart MD. rn Disposition: 04/08/20 17:08 Discharged to Home. Impression: Encounter for attention to gastrostomy. - Condition is Stable. - Discharge Instructions: Gastrostomy Tube Home Guide, Adult. - Medication Reconciliation Form, Thank You Letter, Antibiotic Education, Prescription Opioid Use form. - Follow up: Private Physician; When: 2 - 3 days; Reason: Recheck today's complaints, Continuance of care, Re-evaluation by your physician. Signatures: Dispatcher [employer] EDMS Jordan Lyon PA PA Elisabeth Arredondo RN RN iw Nieto, Roman, MD MD wood turner: (The following items were deleted from the chart) 18:29 17:08 04/08/2020 17:08 Discharged to Home. Impression: Encounter for attention to iw gastrostomy. Condition is Stable. Forms are Medication Reconciliation Form, Thank You Letter, Antibiotic Education, Prescription Opioid Use. Follow up: Private Physician; When: 2 - 3 days; Reason: Recheck today's complaints, Continuance of care, Re-evaluation by your physician. adrianna
[2020-04-08 18:33] VITALS: BP 143/78; TEMP 98; O2SAT 97
== END 2020-04-08 18:29 | disposition home or self-care (01) ==
LOC: ER 14:04
DX: Z43.1 Encounter for attention to gastrostomy (principal); I10 Essential (primary) hypertension
CPT/HCPCS: 74018; 99283